=== PATIENT | female | born 1930 | race African-American/Black ===

== ENCOUNTER 2016-07-01 23:30 | Inpatient (IN) | payer OTHER ==
--- NOTE | 2016-07-02 00:35 | PDOC ---
History of Present Illness - General History Source: Family Exam Limitations: Dementia - History of Present Illness Initial Comments: 07/02/16 01:15 The patient is a 86-year-old female brought in by her family, with a significant past medical history of hypertension, advanced dementia, and COPD, and presents to the emergency department with right hand swelling for 1.5 days. The patient does not speak secondary to dementia. As per family, they noticed the swelling in her right hand and noticed that the patient grimaces in pain with touch to the right hand and arm. They deny any recent trauma. As per family , the patient is eating more than normal, and the daughter is actively feeding her. As per family, the patient denies fever, chills, abdominal pain, nausea, vomit, diarrhea. The patient denies chest pain, shortness of breath, headache, or dizziness. Allergies: No known drug allergies Social History: Denies smoking, ETOH, or recreational drug use PCP: Dr. Alvaro Nguyen <Jaci Louis - Last Filed: 07/02/16 01:22> - General History Source: Patient <TrePrabhakar bush - Last Filed: 07/02/16 01:58> - General Chief Complaint: Edema Stated Complaint: RIGHT HAND SWELLING Time Seen by Provider: 07/02/16 00:35 Past History <Jaci Louis - Last Filed: 07/02/16 01:22> - Past Medical History Dementia: Yes HTN: Yes Suicide Attempt (Hx): No - Surgical History Abdominal Surgery: Yes (left inguinal hernia) Cholecystectomy: Yes - Psycho/Social/Smoking Cessation Hx Anxiety: No Suicidal Ideation: No Smoking Status: No Smoking History: Never smoked Have you smoked in the past 12 months: No Number of Cigarettes Smoked Daily: 0 Hx Alcohol Use: No Drug/Substance Use Hx: No Substance Use Type: None <Prabhakar Young - Last Filed: 07/02/16 01:58> - Past Medical History Allergies/Adverse Reactions: Allergies Allergy/AdvReac Type Severity Reaction Status Date / Time No Known Allergies Allergy Verified 04/01/16 20:34 Home Medications: Ambulatory Orders Cholecalciferol (Vitamin D3) [Vitamin D3] 2,000 unit PO DAILY 06/21/14 Dicyclomine HCl 10 mg PO TID 06/21/14 Folic Acid - 1 mg PO DAILY 06/21/14 Lansoprazole [Prevacid -] 30 mg PO DAILY 06/21/14 Levothyroxine [Synthroid -] 50 mcg PO DAILY 06/21/14 Memantine HCl [Namenda -] 10 mg PO BID 06/21/14 Quinapril HCl [Accupril] 10 mg PO DAILY 06/21/14 Oxycodone HCl/Acetaminophen [Percocet 5-325 mg Tablet] 1 - 2 tab PO Q4H PRN 09/12 Review of Systems - Review of Systems Comments:: 07/02/16 01:16 CONSTITUTIONAL: Absent: fever, chills, diaphoresis, generalized weakness, malaise, loss of appetite HEENT: Absent: rhinorrhea, nasal congestion, throat pain, throat swelling, difficulty swallowing, mouth swelling, ear pain, eye pain, visual Changes CARDIOVASCULAR: Absent: chest pain, syncope, palpitations, irregular heart rate, lightheadedness RESPIRATORY: Absent: cough, shortness of breath, dyspnea with exertion, orthopnea, wheezing, stridor, hemoptysis GASTROINTESTINAL: Absent: abdominal pain, abdominal distension, nausea, vomiting, diarrhea, constipation, melena, hematochezia GENITOURINARY: Absent: dysuria, frequency, urgency, hesitancy, hematuria, flank pain, genital pain MUSCULOSKELETAL: Present: (+) right hand swelling Absent: arthralgia SKIN: Absent: rash, itching, pallor HEMATOLOGIC/IMMUNOLOGIC: Absent: easy bleeding, easy bruising, lymphadenopathy, frequent infections ENDOCRINE: Absent: unexplained weight gain, unexplained weight loss, heat intolerance, cold intolerance NEUROLOGIC: Absent: headache, focal weakness or paresthesias, dizziness, unsteady gait, seizure, mental status changes, bladder or bowel incontinence PSYCHIATRIC: Absent: anxiety, depression, suicidal or homicidal ideation, hallucinations. <Jaci Louis - Last Filed: 07/02/16 01:22> *Physical Exam - Physical Exam Comments: 07/02/16 01:16 GENERAL: Well developed, well nourished. Awake and alert. No acute distress. HEENT: Normocephalic, atraumatic. PERRLA, EOMI. No conjunctival pallor. Sclera are non- icteric. Moist mucous membranes. Oropharynx is clear. NECK: Supple. Full ROM. No JVD. Carotid pulses 2+ and symmetric, without bruits. No thyromegaly. No lymphadenopathy. CARDIOVASCULAR: Regular rate and rhythm. No murmurs, rubs, or gallops. Distal pulses are 2+ and symmetric. PULMONARY: No evidence of respiratory distress. Lungs clear to auscultation bilaterally. No wheezing, rales or rhonchi. ABDOMINAL: Soft. Non-tender. Non-distended. No rebound or guarding. No organomegaly. Normoactive bowel sounds. MUSCULOSKELETAL Normal range of motion at all joints. No bony deformities or tenderness. No CVA tenderness. EXTREMITIES: (+) Right arm edema, (+) Erythema from dorsum of right hand to mid forearm, does not extend past right elbow, (+) Tenderness to palpation of the right hand and arm. No cyanosis. No clubbing. No calf tenderness. SKIN: Warm and dry. Normal capillary refill. No rashes. No jaundice. NEUROLOGICAL: Alert, awake, appropriate. Cranial nerves 2-12 intact. No deficits to light touch and temperature in face, upper extremities and lower extremities. No motor deficits in the in face, upper extremities and lower extremities. Normoreflexic in the upper and lower extremities. Normal speech. Toes are down-going bilaterally. Gait is normal without ataxia. PSYCHIATRIC: Cooperative. Good eye contact. Appropriate mood and affect. <Jaci Louis - Last Filed: 07/02/16 01:22> ED Treatment Course - LABORATORY CBC & Chemistry Diagram: 07/02/16 00:50 07/02/16 00:50 <Jaci Louis - Last Filed: 07/02/16 01:22> - LABORATORY CBC & Chemistry Diagram: 07/02/16 00:50 07/02/16 00:50 <Prabhakar Young - Last Filed: 07/02/16 01:58> Medical Decision Making - Medical Decision Making 07/02/16 01:58 Dr. Young: The scribe's documentation has been prepared under my direction and personally reviewed by me in its entirery. I confirm that the note above accurately reflects all work, treatment, procedures, and medical decision making performed by me. <Prabhakar Young - Last Filed: 07/02/16 01:58> *DC/Admit/Observation/Transfer - Attestations Scribe Attestion: 07/02/16 01:17 Documentation prepared by Jaci Louis, acting as medical technologist clinical for Prabhakar Young DO. <Jaci Louis - Last Filed: 07/02/16 01:22> - Discharge Dispostion Admit: Yes <Prabhakar Young - Last Filed: 07/02/16 01:58> Diagnosis at time of Disposition: Cellulitis Qualifiers: Site of cellulitis of extremity: upper extremity Laterality: right - Referrals Referrals: Alvaro Nguyen MD [Primary Care Provider] -
[2016-07-02 01:17] LABS: MCH 27.9 pg (25.7-33.7); MCHC 31.9 g/dl (32.0-36.0); MEAN CELL VOLUME 87.5 fl (80-96); MEAN PLT VOLUME 11.8 fl (7.5-11.1); PLATELET COUNT 121 K/MM3 (134-434); WHITE BLOOD COUNT 7.4 K/mm3 (4.0-10.0)
[2016-07-02 01:43] LABS: INR 1.1 (0.82-1.09); PROTHROMBIN TIME (PATIENT) 12.1 SEC (9.98-11.88)
[2016-07-02 01:45] LABS: ALBUMIN 2.8 g/dl (3.4-5.0); BILIRUBIN,TOTAL 0.7 mg/dL (0.2-1.0); CREATININE 0.9 mg/dL (0.55-1.02); TOT PROT 5.5 g/dl (6.4-8.2)
[2016-07-02] MEDS ORDERED: AMPICILLIN NA/SULBACTAM NA 1.5 GM in SODIUM CHLORIDE 100 ML IVPB ONE (01:54)
[2016-07-02 02:09] VITALS: BMI 22.6
--- NOTE | 2016-07-02 02:15 | PN ---
<Kerrie Rea - Last Filed: 07/02/16 04:21> Teaching Attending Note ATTENDING PHYSICIAN STATEMENT I saw and evaluated the patient. I reviewed the resident's note and discussed the case with the resident. I agree with the resident's findings and plan as documented. SUBJECTIVE: The patient is a 86-year-old female brought in by her family, with a significant past medical history of hypertension, hypothyroidism, advanced dementia, and COPD, and presents to the emergency department with right hand swelling noticed by family at 12 am. As per family the patient has been guarding her right hand for few days and they noted erythema and swelling. The patient does not speak secondary to dementia. They deny any recent trauma. PCP: Dr. Alvaro Nguyen OBJECTIVE: Physical: VS: Last Vital Signs Temp Pulse Resp BP Pulse Ox 98.7 F 78 18 145/89 100 07/02/16 02:07 07/02/16 02:07 07/02/16 02:07 07/02/16 02:07 07/02/16 02:07 GEN: cachectic, unable to follow direction, A&OX0 HEENT: patient unwilling to open mouth, [facility] CARD: 2/6 systolic ejection murmur RESP:CTAB ABD: scaphoid, BWS x4 EXT: +right arm pulses intact erythema up to mid forarm with warmth and edema, +Left upper extremity pulses intact, +Lower extremities negative CCE LABS: CBCD WBC 7.4 K/mm3 (4.0-10.0) D 07/02/16 00:50 RBC 4.36 M/mm3 (3.60-5.2) 07/02/16 00:50 Hgb 12.2 GM/dL (10.7-15.3) 07/02/16 00:50 Hct 38.1 % (32.4-45.2) 07/02/16 00:50 MCV 87.5 fl (80-96) 07/02/16 00:50 MCHC 31.9 g/dl (32.0-36.0) L 07/02/16 00:50 RDW 16.0 % (11.6-15.6) H 07/02/16 00:50 Plt Count 121 K/MM3 (134-434) L 07/02/16 00:50 MPV 11.8 fl (7.5-11.1) H 07/02/16 00:50 CMP Sodium 142 mmol/L (136-145) 07/02/16 00:50 Potassium 3.7 mmol/L (3.5-5.1) 07/02/16 00:50 Chloride 104 mmol/L (98-107) 07/02/16 00:50 Carbon Dioxide 27 mmol/L (21-32) 07/02/16 00:50 Anion Gap 11 (8-16) 07/02/16 00:50 BUN 16 mg/dL (7-18) 07/02/16 00:50 Creatinine 0.9 mg/dL (0.55-1.02) 07/02/16 00:50 Creat Clearance w eGFR 59.37 (>60) 07/02/16 00:50 Calcium 8.0 mg/dL (8.5-10.1) L 07/02/16 00:50 Total Bilirubin 0.7 mg/dL (0.2-1.0) D 07/02/16 00:50 AST 16 U/L (15-37) D 07/02/16 00:50 ALT 18 U/L (12-78) D 07/02/16 00:50 Alkaline Phosphatase 68 U/L (45-117) D 07/02/16 00:50 Total Protein 5.5 g/dl (6.4-8.2) L 07/02/16 00:50 Albumin 2.8 g/dl (3.4-5.0) L D 07/02/16 00:50 ASSESSMENT AND PLAN: 86 with hypertension, hypothyroidism, advanced dementia and COPD who presents with swelling and erythema of the right hand being admitted for cellulitis. 1.) Cellulitis - Unable to tolerate PO intake - Clindamycin 900Q8 - Hand Xray 2.) Dysphagia - Speech and swallow eval 3.) Hypothyroidism - Synthroid IV 4.) HLD - Hold PO meds 5.) COPD - Not in exacerbation monitor 6.) DVT ppx - Heparin 5,000 Q8 Admit to Med-Surg. Documentation prepared by Kerrie Rea, acting as medical scientist for Jonnie Damon D.O. <Jonnie Damon - Last Filed: 07/02/16 06:52> Teaching Attending Note Name of Resident: Bridget Lagos
[2016-07-02 02:54] LABS: URINE APPEARANCE SLCLOUDY; URINE BILIRUBIN NEGATIVE (NEGATIVE); URINE BLOOD NEGATIVE (NEGATIVE); URINE COLOR AMBER; URINE GLUCOSE (UA) NEGATIVE (NEGATIVE); URINE KETONE NEGATIVE (NEGATIVE); URINE LEUK ESTERASE NEGATIVE (NEGATIVE); URINE NITRITE POSITIVE (NEGATIVE); URINE PROTEIN NEGATIVE (NEGATIVE); URINE UROBILINOGEN NEGATIVE E.U./dl (0.2-1.0)
[2016-07-02 03:01] LABS: PLATELET COMMENT2 FEW GIANT PLTS; PLATELET COMMENT3 NO CLUMPING NOTED; PLATELET ESTIMATE SLT DECREASED (NORMAL); POLYCHROMASIA 1+
[2016-07-02 03:02] LABS: URINE BACTERIA MANY /hpf (NONE SEEN); URINE MUCUS MANY; URINE RBC 1 /hpf (0-3); URINE WBC 5 /hpf (3-5)
[2016-07-02] MEDS ORDERED: morphine CARPU-JECT 2 MG/1 ML DISP.SYRIN IVPUSH PRN ×2 (03:23→03:48)
--- NOTE | 2016-07-02 03:48 | HP ---
CHIEF COMPLAINT: Right hand swelling PCP: Dr. Wendy Michelle HISTORY OF PRESENT ILLNESS: The pt is a 86 year old female with a significant PMH of severe dementia, HTN, hypothyroidism, COPD who presented to the hospital for right hand swelling that was noticed by her family around midnight. They state that for the past 3 days she has been guarding her right hand, grimacing when touched or moved. Additionally they state that she has normal appetite but noticed problems with swallowing recently. That is why they started giving her liquid diet, puree, juice mixed with water. They state that she has chronic constipation. The family denies vomiting, diarrhea, changes to her baseline mental status, fever, chills, increased frequency with urination, blood in urine or stool. She is ambulating with assistance and lives with her son. ER course was notable for: (1)Right hand and forearm x ray (2)labs (3)UA PAST MEDICAL HISTORY: severe dementia, HTN, hypothyroidism, COPD PAST SURGICAL HISTORY: hernia surgery 14 years ago, cholecystectomy, accident (fall) in 1986 Social History: Smoking:No Alcohol:No Drugs: No Family History: She lives with her son. 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 Allergies No Known Allergies Allergy (Verified 04/01/16 20:34) HOME MEDICATIONS: Medication Instructions Recorded Cholecalciferol (Vitamin D3) 2,000 unit PO DAILY 06/21/14 [Vitamin D3] Dicyclomine HCl 10 mg PO TID 06/21/14 Folic Acid - 1 mg PO DAILY 06/21/14 Lansoprazole [Prevacid -] 30 mg PO DAILY 06/21/14 Levothyroxine [Synthroid -] 50 mcg PO DAILY 06/21/14 Memantine HCl [Namenda -] 10 mg PO BID 06/21/14 Quinapril HCl [Accupril] 10 mg PO DAILY 06/21/14 Oxycodone HCl/Acetaminophen 1 - 2 tab PO Q4H PRN 04/01/16 [Percocet 5-325 mg Tablet] REVIEW OF SYSTEMS: limited, ROS taken from family CONSTITUTIONAL: Absent: fever, chills HEENT: difficulty swallowing Absent: rhinorrhea, nasal congestion, mouth swelling, ear pain, eye pain, CARDIOVASCULAR: Absent: chest pain, syncope, palpitations, irregular heart rate, lightheadedness , peripheral edema RESPIRATORY: Absent: cough, shortness of breath, dyspnea with exertion, orthopnea, wheezing, stridor, hemoptysis GASTROINTESTINAL: Absent: abdominal pain, abdominal distension, nausea, vomiting, diarrhea, constipation, melena, hematochezia GENITOURINARY: Absent: dysuria, frequency, urgency, hesitancy, hematuria, flank pain, genital pain MUSCULOSKELETAL: right hand swelling and erythema Absent: joint swelling, back pain, neck pain SKIN: Absent: rash, itching, pallor HEMATOLOGIC/IMMUNOLOGIC: Absent: easy bleeding, easy bruising, lymphadenopathy, frequent infections ENDOCRINE: Absent: unexplained weight gain, unexplained weight loss, heat intolerance, cold intolerance NEUROLOGIC: Absent: headache, focal weakness, dizziness, unsteady gait, seizure, mental status changes, bladder or bowel incontinence PSYCHIATRIC: Absent: anxiety PHYSICAL EXAMINATION Vital Signs - 24 hr 07/02/16 02:07 Temperature 98.7 F Pulse Rate 78 Respiratory 18 Rate Blood Pressure 145/89 O2 Sat by Pulse 100 Oximetry (%) GENERAL: Awake, severely demented, not following commands, in no acute distress. HEAD: Normal with no signs of trauma. EYES: Pupils equal, round and reactive to light, extraocular movements not able to assess, sclera anicteric, conjunctiva clear. No lid lag. EARS, NOSE, THROAT: Ears normal, nares patent, oropharynx- pt didn't open her mouth. Moist mucous membranes. NECK: Normal range of motion, supple without lymphadenopathy, JVD, or masses. LUNGS: Breath sounds equal, clear to auscultation bilaterally. No wheezes, and no crackles. No accessory muscle use. HEART: Regular rate and rhythm, normal S1 and S2 without murmur, rub or gallop. ABDOMEN: Soft, nontender, not distended, normoactive bowel sounds, no guarding, no rebound, no masses. No hepatomegaly or splenomegaly. The pt was guarding her abdomen when examined. UPPER EXTREMITIES: 2+ pulses, warm, well-perfused. No cyanosis. No clubbing. Cap refill <2 seconds. No peripheral edema. Rigidity when examined. The pt grimaced when touched or moved her hand. Not able to check ROM. LOWER EXTREMITIES: 2+ pulses, warm, well-perfused. No calf tenderness. No peripheral edema. Rigidity when examined. Not able to examine ROM. NEUROLOGICAL: The pt doesn't speak. Babinski reflex negative B/L. PSYCHIATRIC: Not cooperative. demented. SKIN: Warm, dry, normal turgor, erythema on right hand. Laboratory Results - last 24 hr 07/02/16 02:40 Urine Color [place] Urine Appearance Slcloudy Urine pH 5.0 Ur Specific [place] 1.021 Urine Protein Negative Urine Glucose (UA) Negative Urine Ketones Negative Urine Blood Negative Urine Nitrite Positive Urine Bilirubin Negative Urine Urobilinogen Negative Ur Leukocyte Esterase Negative Urine RBC 1 Urine WBC 5 Urine Bacteria Many Urine Mucus Many ASSESSMENT/PLAN: The pt is a 86 year old female with a significant PMH of severe dementia, HTN, hypothyroidism, COPD who presented to the hospital for right hand swelling that was noticed by her family around midnight. They state that for the past 3 days she has been guarding her right hand, grimacing when touched or moved. Additionally they state that she has normal appetite but noticed problems with swallowing recently. That is why they started giving her liquid diet, puree, juice mixed with water. Cellulitis: -continue Clindamycin 900 mg Q8H -x ray of right hand and forearm to see if there is air in subcutaneous tissue present -Morphine 0.5 Q6H for pain control Dysphagia: -speech and swallow evaluation -Liquid diet Hypothyroidism: -Synthroid 25 mcq IV then change to PO after speech and swallow evaluation HTN: -hold home meds for now DVT prophylaxis: -Heparin 5000 u SQ8 F/E/N: No/No/Liquid diet Disposition: admit to med surgery Problem List - Problem (1) Cellulitis Code(s): L03.90 - CELLULITIS, UNSPECIFIED Qualifiers: Site of cellulitis of extremity: upper extremity Laterality: right (2) Hypothyroidism Code(s): E03.9 - HYPOTHYROIDISM, UNSPECIFIED (3) Dysphagia Code(s): R13.10 - DYSPHAGIA, UNSPECIFIED Visit type - Emergency Visit Emergency Visit: Yes ED Registration Date: 07/02/16 Care time: The patient presented to the Emergency Department on the above date and was hospitalized for further evaluation of their emergent condition. - New Patient This patient is new to me today: Yes Date on this admission: 07/02/16 - Critical Care Critical Care patient: No
[2016-07-02] MEDS ORDERED: LEVOTHYROXINE SODIUM 100 MCG VIAL IVPUSH SCH (07:00)
[2016-07-02] MEDS: CLINDAMYCIN 900 MG PREMIX IVPB 50 ML IVPB SCH ×2 (07:21→11:00)
--- NOTE | 2016-07-02 09:55 | EKG ---
Test Reason : Blood Pressure : / mmHG Vent. Rate : 085 BPM Atrial Rate : 085 BPM P-R Int : 132 ms QRS Dur : 070 ms QT Int : 350 ms P-R-T Axes : 058 031 079 degrees QTc Int : 416 ms SINUS RHYTHM WITH PREMATURE ATRIAL COMPLEXES WITH ABERRANT CONDUCTION OTHERWISE NORMAL ECG WHEN COMPARED WITH ECG OF 01-APR-2016 21:03, ABERRANT CONDUCTION IS NOW PRESENT Confirmed by MARCIAL SALEEM, SUBHA ([id number]) on 07/02/2016 9:55:17 AM Referred By: Overread By: SUBHA CEJA MD
--- NOTE | 2016-07-02 10:51 | CONSULT ---
Admitting History and Physical - Primary Care Physician PCP: Bridget Lagos - Admission History of Present Illness: HISTORY OF PRESENT ILLNESS: The pt is a 86 year old female with a significant PMH of severe dementia, HTN, hypothyroidism, COPD who presented to the hospital for right hand swelling that was noticed by her family around midnight. They state that for the past 3 days she has been guarding her right hand, grimacing when touched or moved. Additionally they state that she has normal appetite but noticed problems with swallowing recently. That is why they started giving her liquid diet, puree, juice mixed with water. They state that she has chronic constipation. The family denies vomiting, diarrhea, changes to her baseline mental status, fever, chills, increased frequency with urination, blood in urine or stool. She is ambulating with assistance and lives with her son. History Source: Medical Record Limitations to Obtaining History: Dementia - Smoking History Smoking history: Never smoked Have you smoked in the past 12 months: No Aproximately how many cigarettes per day: 0 - Alcohol/Substance Use Hx Alcohol Use: No History - Admission Reason For Visit: RIGHT HAND CELLULITIS - Diagnostics X-ray: Report Reviewed - General Mental Status: Confused, Flat Affect Attention: Distractible, Severe Impairment Ability to Follow Directions: Poor Head/Neck Control: Good - Hearing Hearing Aide: No Speech Evaluation - Communication Primary Language: TAJIK Communication: Yes: Non-Communicable Oral Expression Ability: Yes: Non-Verbal, Non-Vocal - Speech Production Able to Make Needs Known: Yes: Severely Impaired Intelligibility: Yes: Severely Impaired - Language/Auditory Comprehension Observation: Able to respond to yes/no queries: No, Comprehends Conversational Speech: No - Language/Verbal Expression Able to Respond to Simple Queries: Yes: Severely Impaired Able to Communicate Wants and Needs: Yes: Severely Impaired Functional Communication Status: Yes: Severely Impaired Attention: Yes: Severe Impairment - Memory/Perception intermission coordinator Memory: Yes: Severely Impaired Short Term Memory: Yes: Severely Impaired - Swallow Evaluation/Bedside Assessment Current Nutritional Intake: NPO Oral Secretions: Yes: WFL Dentition: Yes: Edentulous Facial Symmetry at Rest: Symmetrical Lingual Movement: Symmetric Lingual Speed of Movement: Normal Velopharyngeal Movement: Normal Laryngeal Elevation: WFL Laryngeal Movement: Able to Palpate Chewing: Impaired Oral Prep Time: WFL A-P Transit: WFL Pocketing: None Timing of Swallow: Delayed Coughing/Throat Clear: No Change in Voice: No Recommendations - Speech Evaluation, Impression/Plan Impression: Severe cognitive deficits with poor attention, follows no commands, noncommunicative. Accepted pudding on a teaspoon, liquid from a straw and cup without signs of dysphagia. Pt is edentulous. - Dysphagia Impressions/Plan Dysphagia Impressions: Ongoing Evaluation Recommendations: Other (monitor pulmonary/nutritional status) - Recommendations Diet Consistency: Dysphagia Pureed Medication Administration: Crushed with applesauce Liquids: Thin Liquids Supplement: Ensure (b/n meals.)
[2016-07-02] MEDS ORDERED: oxyCODONE HCL 5 MG TABLET PO PRN (11:56)
--- NOTE | 2016-07-02 12:50 | PN ---
Progress Note (short form) - Note Progress Note: Patient of mine for years with severe dementia, chronic pain, hypertension and multiple abdominal surgeries is admitted from home where her son cares for her with severe right hand pain thought to be due to acute cellulitis. Hand Xray shows some old metacarpal changes but no acute FX. I believe I had recently requested hospice to enroll the patient and also of note is the fact that no body sores are present on her back on admission suggesting good care at home. I will follow the patient.
[2016-07-02] MEDS: HEPARIN NA (PORCINE) 5,000 UNITS/ML 1ML VIAL SQ SCH ×2 (12:57→17:30)
[2016-07-02] MEDS: QUINAPRIL HCL 10 MG TABLET (FP) PO SCH (12:57)
--- NOTE | 2016-07-02 14:32 | PN ---
Progress Note (short form) - Note Progress Note: ID consult dictated imp/reccd 86 year old female admitted from home with swelling, erythema of dorsum right hand xrays no fracture no fever normal WBC no fever cellulitis of the hand ?arthritis/gout switch to ancef Problem List - Problems (1) Cellulitis Code(s): L03.90 - CELLULITIS, UNSPECIFIED Qualifiers: Site of cellulitis of extremity: upper extremity Laterality: right
[2016-07-02 14:36] LABS: URIC ACID 3.9 mg/dL (2.6-7.2)
--- NOTE | 2016-07-02 15:11 | CONS ---
DATE OF CONSULTATION: 07/02/2015 REQUESTED BY: Alvaro Nguyen MD This is an 86-year-old woman with severe dementia, who was admitted from home. She had severe right hand pain with some swelling of the dorsum of her hand. There was no history of any fevers. There was no history of any trauma. She was seen in the emergency room. On the physical exam in the ER, she was noted to have erythema of the dorsum of the right hand to the mid forearm. She had cultures drawn and she was given Unasyn and then switched to clindamycin. I am asked to see her for further evaluation. She is awake, she is not really very verbal, and she is resting quite comfortably today. Her past medical history is notable for a history of dementia, hypertension. She has had a left inguinal hernia repair and a cholecystectomy in the past. She lives with her family. There is no history of any cigarette or substance use. She has no known drug allergies. Her medications at home include vitamin D, dicyclomine, folic acid, Prevacid, Synthroid, Namenda, Accupril, and Percocet. Review of systems is unremarkable. She has had no fevers or chills. No nausea and vomiting. PHYSICAL EXAMINATION: General: She is awake and alert. She is a thin woman in no acute distress. Vital Signs: Temperature is 98.7. Pulse is 78. Blood pressure 145/59. Respiratory rate is 18. Her stated weight is 120. She is saturating 100% on room air. HEENT: She is normocephalic. Her eyes are anicteric. Lungs: Clear to auscultation. Heart: Regular rate and rhythm. Extremities: Her right hand, she has some minimal swelling of the dorsum. There is no swelling of the forearm any more. There is some mild erythema. Extremities are without edema. Her white count is 7.4, hemoglobin 12.2, platelets 121, INR is 1. Chemistries are within normal limits with an albumin of 2.8 and cultures are pending. UA is negative for leukocyte esterase. X-rays of the hand, there is no evidence of any fracture. Chest x-ray is unremarkable. In summary, this is an elderly woman with mild cellulitis of her hand, possible arthritis, some gout contributing to the inflammatory component to this process. I would switch her to Ancef. I do not think she has any clinical risk factors for MRSA. No recent admissions. There is no evidence of any abscess. Would add some probiotics as well. ALIA DUCKWORTH M.D. [id number] MTDD
[2016-07-02] MEDS ORDERED: PNEUMOC 13-VAL CONJ-DIP CRM/PF 0.5 ML DISP.SYRIN IM ONE (15:44)
[2016-07-02] MEDS ORDERED: INFLUENZA VACCINE 45 MCG/0.5 ML (MDV 16-17) IM ONE (15:47)
[2016-07-02] MEDS: CEFAZOLIN 1 GM/D5W 50 ML IVPB SCH (17:29)
[2016-07-02] MEDS: LACTOBACILLUS ACIDOPHILUS 1 EACH TAB (FP) PO SCH (23:50)
[2016-07-02] MEDS: DOCUSATE SODIUM 100 MG CAPSULE (FP) PO SCH (23:52)
[2016-07-02] MEDS: MEMANTINE HCL 10 MG TABLET (FP) PO SCH (23:55)
[2016-07-03] MEDS: CEFAZOLIN 1 GM/D5W 50 ML IVPB SCH ×3 (02:33→18:22)
[2016-07-03] MEDS: HEPARIN NA (PORCINE) 5,000 UNITS/ML 1ML VIAL SQ SCH ×3 (02:33→18:22)
[2016-07-03] MEDS: LEVOTHYROXINE NA 50 MCG TABLET (FP) PO SCH (06:22)
[2016-07-03 07:44] LABS: BASOPHIL 0.3 % (0-2.0); EOSINOPHIL 0.6 % (0-4.5); MCH 29.1 pg (25.7-33.7); MCHC 33.6 g/dl (32.0-36.0); MEAN CELL VOLUME 86.8 fl (80-96); MEAN PLT VOLUME 10.6 fl (7.5-11.1); NEUTROPHILS 74.3 % (42.8-82.8); PLATELET COUNT 141 K/MM3 (134-434); RDW 15.5 % (11.6-15.6); WHITE BLOOD COUNT 4.5 K/mm3 (4.0-10.0)
[2016-07-03 08:43] LABS: FREE T4 1.26 ng/dl (0.76-1.46); THYROID STIMULATING HORMONE 0.69 uIU/ml (0.358-3.74)
--- NOTE | 2016-07-03 09:08 | PN ---
Progress Note (short form) - Note Progress Note: Patient with severe dementia, hypertension and chronic abdominal pain admitted for acute pain and cellulitis of the right hand. Now improved on IV Antibiotics. Set up for hospice at home this week and will go home on hospice. Does not communicate. Cooperates with her son who lives with her. Swallowing eval noted. On Exam: Vital Signs Period Temp Pulse Resp BP Sys/[place]illa Pulse Ox Last 24 Hr 98.3 F-98.5 F 60-73 18-20 98-132/56-78 95-95 Alert Ext: no edema Right hand: Further decrease in warmth, redness and tenderness. Breathing and HR are regular Abnormal Lab Results 07/03/16 06:30 Hgb 10.5 L D Hct 31.2 L D Imp: Acute Cellulitis right hand Severe Dementia Chronic abdominal pain. Plan: Continue IV antibiotic [facility] on discharge
[2016-07-03] MEDS: QUINAPRIL HCL 10 MG TABLET (FP) PO SCH (09:55)
[2016-07-03] MEDS: MEMANTINE HCL 10 MG TABLET (FP) PO SCH ×2 (09:55→22:19)
[2016-07-03] MEDS: LACTOBACILLUS ACIDOPHILUS 1 EACH TAB (FP) PO SCH ×2 (09:55→22:19)
[2016-07-03] MEDS: FOLIC ACID 1 MG TABLET (FP) PO SCH (09:55)
[2016-07-03 10:30] LABS: ERYTHROCYTE SEDIMENTATION RATE 62 mm/hr (0-30)
--- NOTE | 2016-07-03 11:17 | PN ---
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
[2016-07-03] MEDS: DOCUSATE SODIUM 100 MG CAPSULE (FP) PO SCH (22:19)
[2016-07-04] MEDS: HEPARIN NA (PORCINE) 5,000 UNITS/ML 1ML VIAL SQ SCH ×3 (02:25→17:02)
[2016-07-04] MEDS: CEFAZOLIN 1 GM/D5W 50 ML IVPB SCH ×3 (02:25→17:02)
[2016-07-04] MEDS: LEVOTHYROXINE NA 50 MCG TABLET (FP) PO SCH (06:45)
[2016-07-04 08:25] LABS: EOSINOPHIL 1.1 % (0-4.5); MCH 28.9 pg (25.7-33.7); MEAN CELL VOLUME 87.6 fl (80-96); MEAN PLT VOLUME 10.4 fl (7.5-11.1); NEUTROPHILS 60.5 % (42.8-82.8); PLATELET COUNT 185 K/MM3 (134-434); RDW 15.2 % (11.6-15.6); WHITE BLOOD COUNT 3.9 K/mm3 (4.0-10.0)
--- NOTE | 2016-07-04 08:53 | PN ---
Progress Note (short form) - Note Progress Note: Patient appears more alert today but continues confused. Now Urine C/S +; Await sensitivity; she is on Ancef for cellulitis of hand. Hospice at home. Vital Signs Period Temp Pulse Resp BP Sys/Chinchilla Pulse Ox Last 24 Hr 97.9 F-98.4 F 60-76 18-20 100-134/53-75 95-98 On Exam: Alert Heart: Reg Ext: No edema Right hand : much improved right hand swelling and erythema Abnormal Lab Results 07/03/16 07/03/16 07/04/16 06:30 06:30 06:45 WBC 3.9 L RBC 3.51 L Hgb 10.1 L Hct 30.7 L ESR 62 H Free T3 1.1 L Imp: Acute Cellulitis right hand Acute UTI Severe Dementia on Rx Chronic pain on Rx Hypertension on Rx Plan: Needs PT as ordered Continue Antibiotics pending Urine C/S When discharged resume hospice
[2016-07-04] MEDS: QUINAPRIL HCL 10 MG TABLET (FP) PO SCH (10:32)
[2016-07-04] MEDS: MEMANTINE HCL 10 MG TABLET (FP) PO SCH ×2 (10:35→21:56)
[2016-07-04] MEDS: FOLIC ACID 1 MG TABLET (FP) PO SCH (10:35)
[2016-07-04] MEDS: LACTOBACILLUS ACIDOPHILUS 1 EACH TAB (FP) PO SCH ×2 (10:35→21:56)
--- NOTE | 2016-07-04 10:57 | PN ---
Progress Note, WHEELMAN - Note Progress Note: Selected Entries 07/03/16 07/03/16 07/03/16 09:17 14:18 18:29 Breakfast 50% Lunch 75% Supper 50% 07/04/16 09:29 Breakfast 25% Lunch Supper Remind pt to swallow with each bite presented. Encourage PO intake. Provide supplements b/n meals to improve density of nutritional intake.
--- NOTE | 2016-07-04 15:52 | PN ---
Progress Note (short form) - Note Progress Note: doing well more alert Vital Signs Period Temp Pulse Resp BP Sys/Chinchilla Pulse Ox Last 24 Hr 97.8 F-98.9 F 58-76 18-20 99-134/52-66 95-95 cor-rrr lungs clear abd soft,nt ext minimal swelling of right hand CBC, BMP 07/04/16 06:45 07/02/16 00:50 Microbiology 07/02/16 02:40 Urine - Urine Clean Catch Urine Culture - Final Escherichia Coli 07/02/16 00:58 Blood - Peripheral Venous Blood Culture - Preliminary NO GROWTH OBTAINED AFTER 48 HOURS, INCUBATION TO CONTINUE FOR 3 DAYS. 07/02/16 00:58 Blood - Peripheral Venous Blood Culture - Preliminary NO GROWTH OBTAINED AFTER 48 HOURS, INCUBATION TO CONTINUE FOR 3 DAYS. a/p cellulitis -resolved doubt ecoli uti-more likely asymptomatic bacteriuria- UA not consistent with UTI can d/c antibioitcs in am please call back if needed Problem List - Problems (1) Cellulitis Code(s): L03.90 - CELLULITIS, UNSPECIFIED Qualifiers: Site of cellulitis of extremity: upper extremity Laterality: right
[2016-07-04] MEDS: DOCUSATE SODIUM 100 MG CAPSULE (FP) PO SCH (21:56)
[2016-07-05] MEDS: HEPARIN NA (PORCINE) 5,000 UNITS/ML 1ML VIAL SQ SCH ×2 (01:57→09:58)
[2016-07-05] MEDS: CEFAZOLIN 1 GM/D5W 50 ML IVPB SCH ×2 (01:57→09:58)
[2016-07-05] MEDS: LEVOTHYROXINE NA 50 MCG TABLET (FP) PO SCH (06:45)
--- NOTE | 2016-07-05 09:53 | DS ---
Physical Examination Vital Signs: Vital Signs Temperature 98.8 F 07/05/16 06:00 Pulse Rate 56 L 07/05/16 06:00 Respiratory Rate 18 07/05/16 06:00 Blood Pressure 117/60 07/05/16 06:00 O2 Sat by Pulse Oximetry (%) 96 07/04/16 21:00 Constitutional: Yes: Cachectic Cardiovascular: Yes: Regular Rate and Rhythm Respiratory: Yes: Regular Gastrointestinal: Yes: Soft, Distention. No: Tenderness Extremities: Yes: Other (right hand: No cellulitis persists) Edema: No Neurological: Yes: Confusion Labs: CBC, BMP 07/04/16 06:45 Discharge Summary Reason For Visit: Acute RIGHT HAND CELLULITIS Current Active Problems Cellulitis (Acute) Dysphagia (Acute) Hypothyroidism (Acute) Dementia on meds Chronic pain and acute pain Hypertension on meds Procedures: Principal: Blood Cultures and Xrays Other Procedures: IV antibiotics and ID MD consult Hospital Course: Slowly improved; + UTI also but ID MD feels it is not acute infection Condition: Stable - Instructions Diet, Activity, Other Instructions: Puree as tolerated with thin liquids Resume Hospice at home Referrals: Alvaro Nguyen MD [Primary Care Provider] - Disposition: VNS/HOME HEALTH CARE - Home Medications Comprehensive Discharge Medication List: Ambulatory Orders Cholecalciferol (Vitamin D3) [Vitamin D3] 2,000 unit PO DAILY 06/21/14 Folic Acid - 1 mg PO DAILY 06/21/14 Levothyroxine [Synthroid -] 50 mcg PO DAILY 06/21/14 Memantine HCl [Namenda -] 10 mg PO BID 06/21/14 Quinapril HCl [Accupril -] 10 mg PO DAILY 06/21/14 Oxycodone HCl/Acetaminophen [Percocet 5-325 mg Tablet] 1 - 2 tab PO Q4H PRN 09/12 Docusate Sodium [Colace -] 300 mg PO HS capsule 07/05/16
[2016-07-05] MEDS: MEMANTINE HCL 10 MG TABLET (FP) PO SCH (09:58)
[2016-07-05] MEDS: FOLIC ACID 1 MG TABLET (FP) PO SCH (09:58)
[2016-07-05] MEDS: LACTOBACILLUS ACIDOPHILUS 1 EACH TAB (FP) PO SCH (09:58)
[2016-07-05] MEDS: QUINAPRIL HCL 10 MG TABLET (FP) PO SCH (09:58)
[2016-07-05 10:07] VITALS: BP 146/68; PULSE 53; TEMP 98.3
== END 2016-07-05 11:26 | disposition home health service (06) | DRG 603 ==
LOC: JER 23:30 → JERBED 07-02 02:03 → J5S 07-02 04:19
PROVIDERS: ADMIT Internal Medicine; ATTEND Internal Medicine
DX: L03.113 Cellulitis of right upper limb (principal); R64 Cachexia; N39.0 Urinary tract infection, site not specified; F03.90 Unspecified dementia, unspecified severity, without behavioral disturbance, psychotic disturbance, mood disturbance, and anxiety; J44.9 Chronic obstructive pulmonary disease, unspecified; E03.9 Hypothyroidism, unspecified; R13.10 Dysphagia, unspecified; E78.5 Hyperlipidemia, unspecified; K59.00 Constipation, unspecified; Z68.22 Body mass index [BMI] 22.0-22.9, adult
CPT/HCPCS: 36415; 71010-TC; 73090-TC-RT; 73130-TC-RT; 80053; 81003; 81015; 83605; 83880; 84439; 84443; 84481; 84550; 85025; 85610; 85651; 86850; 86900; 86901; 87040; 87086; 87186; 90670; 93005; 93010; 97163-GP; 99283-25; G0008; J1644; Q2037

== ENCOUNTER → 2016-08-19 | Emergency (ER) | payer OTHER ==
[~2016-08-19] MED LIST: CEFTRIAXONE 50 ML ONE; cefTRIAXone 1 GM/50 ML BAG (PRE-DOCKED) IVPB ONE
[2016-08-19 16:00] VITALS: BMI 19.7
--- NOTE | 2016-08-19 16:16 | PDOC ---
History of Present Illness <Faizan Woodall - Last Filed: 08/19/16 17:45> - General History Source: Family Exam Limitations: No Limitations - History of Present Illness Initial Comments: 08/19/16 16:22 The patient is a 86-year-old female, hospice care at home as per son, brought in by EMS, with a significant past medical history of hypertension, advanced dementia, and COPD, and presents to the emergency department with possible overdose. As per son, patient was given half of a half of 10 mg Morphine tablet administered by him in pudding and she spit up more than half of it. Approximately 10 minutes later she became more lethargic in the wheelchair. Patient was responsive but more sluggish.They deny any recent trauma. As per EMS patients BP upon arrival was 60/40 and was brought up to 70/48. Patient was given 2 mg of Narcan by EMS and patient became more responsive. As per family, the patient denies fever, chills, abdominal pain, nausea, vomit, diarrhea. The patient denies chest pain, shortness of breath, headache, or dizziness. Allergies: No known drug allergies Social History: Denies smoking, ETOH, or recreational drug use PCP: Dr. Alvaro Nguyen <Kerrie Rea - Last Filed: 08/19/16 18:43> - General Chief Complaint: Overdose Stated Complaint: SYNCOPE Time Seen by Provider: 08/19/16 15:34 Past History - Past Medical History Dementia: Yes HTN: Yes Suicide Attempt (Hx): No - Surgical History Abdominal Surgery: Yes (left inguinal hernia) Cholecystectomy: Yes - Immunization History Immunization Up to Date: Yes - Psycho/Social/Smoking Cessation Hx Anxiety: No Suicidal Ideation: No Smoking Status: No Smoking History: Never smoked Have you smoked in the past 12 months: No Number of Cigarettes Smoked Daily: 0 Hx Alcohol Use: No Drug/Substance Use Hx: No Substance Use Type: None <Faizan Woodall - Last Filed: 08/19/16 17:45> <Kerrie Rea - Last Filed: 08/19/16 18:43> - Past Medical History Allergies/Adverse Reactions: Allergies Allergy/AdvReac Type Severity Reaction Status Date / Time No Known Allergies Allergy Verified 04/01/16 20:34 Home Medications: Ambulatory Orders Cholecalciferol (Vitamin D3) [Vitamin D3] 2,000 unit PO DAILY 06/21/14 Folic Acid - 1 mg PO DAILY 06/21/14 Levothyroxine [Synthroid -] 50 mcg PO DAILY 06/21/14 Memantine HCl [Namenda -] 10 mg PO BID 06/21/14 Quinapril HCl [Accupril -] 10 mg PO DAILY 06/21/14 Oxycodone HCl/Acetaminophen [Percocet 5-325 mg Tablet] 1 - 2 tab PO Q4H PRN 09/12 Docusate Sodium [Colace -] 300 mg PO HS capsule 07/05/16 Cephalexin [Keflex] 500 mg PO QID #40 capsule 08/19/16 Review of Systems - Review of Systems Able to Perform ROS?: Yes Comments:: 08/19/16 16:23 GENERAL/CONSTITUTIONAL: No fever or chills. No weakness. HEAD, EYES, EARS, NOSE AND THROAT: No change in vision. No ear pain or discharge. No sore throat. CARDIOVASCULAR: No chest pain or shortness of breath. RESPIRATORY: No cough, wheezing, or hemoptysis. GASTROINTESTINAL: No nausea, vomiting, diarrhea or constipation. GENITOURINARY: No dysuria, frequency, or change in urination. MUSCULOSKELETAL: No joint or muscle swelling or pain. No neck or back pain. SKIN: No rash NEUROLOGIC: No headache, vertigo, loss of consciousness, or change in strength/ sensation. ENDOCRINE: No increased thirst. No abnormal weight change. HEMATOLOGIC/LYMPHATIC: No anemia, easy bleeding, or history of blood clots. ALLERGIC/IMMUNOLOGIC: No hives or skin allergy. <Kerrie Rea - Last Filed: 08/19/16 18:43> *Physical Exam - Vital Signs Last Vital Signs Temp Pulse Resp BP Pulse Ox 98.7 F 78 20 150/95 98 08/19/16 15:51 08/19/16 15:51 08/19/16 15:51 08/19/16 15:51 08/19/16 15:51 <Faizan Woodall - Last Filed: 08/19/16 17:45> - Vital Signs Last Vital Signs Temp Pulse Resp BP Pulse Ox 98.7 F 78 20 150/95 98 08/19/16 15:51 08/19/16 15:51 08/19/16 15:51 02/20/17 15:51 08/19/16 15:51 - Physical Exam Comments: 08/19/16 16:26 GENERAL: +Cachectic. Awake, alert, and fully oriented, in no acute distress HEAD: No signs of trauma EYES: PERRLA, EOMI, sclera anicteric, conjunctiva clear ENT: Auricles normal inspection, hearing grossly normal, nares patent, oropharynx clear without exudates. Moist mucosa NECK: Normal ROM, supple, no lymphadenopathy, JVD, or masses LUNGS: Breath sounds equal, clear to auscultation bilaterally. No wheezes, and no crackles HEART: Regular rate and rhythm, normal S1 and S2, no murmurs, rubs or gallops ABDOMEN: Soft, nontender, normoactive bowel sounds. No guarding, no rebound. No masses EXTREMITIES: Normal range of motion, no edema. No clubbing or cyanosis. No cords, erythema, or tenderness NEUROLOGICAL: Cranial nerves II through XII grossly intact. Normal speech. SKIN: Warm, Dry, normal turgor, no rashes or lesions noted. <Kerrie Rea - Last Filed: 08/19/16 18:43> ED Treatment Course - LABORATORY CBC & Chemistry Diagram: 08/19/16 15:51 08/19/16 15:51 <Faizan Woodall - Last Filed: 08/19/16 17:45> - LABORATORY CBC & Chemistry Diagram: 08/19/16 15:51 08/19/16 15:51 <Kerrie Rea - Last Filed: 08/19/16 18:43> Medical Decision Making - Medical Decision Making 08/19/16 16:28 86-year-old female brought in by EMS with son, with a significant past medical history of hypertension, advanced dementia, and COPD, and presents to the emergency department with possible overdose. Will order labs, imaging and will reassess after the results are back. 08/19/16 18:02 Labs reviewed. Hospice care at home as per son. <Kerrie Rea - Last Filed: 08/19/16 18:43> *DC/Admit/Observation/Transfer - Discharge Dispostion Admit: No - Attestations Physician Attestion: 08/19/16 16:16 I, Dr. Faizan Woodall, attest that this document has been prepared under my direction and personally reviewed by me in its entirety. I further attest, that it accurately reflects all work, treatment, procedures and medical decision -making performed by me. <Faizan Woodall - Last Filed: 08/19/16 17:45> - Attestations Scribe Attestion: 08/19/16 16:29 Documentation prepared by TAD Santoro, acting as infertility medical assistant for Faizan Woodall MD/. <Kerrie Rea - Last Filed: 08/19/16 18:43> Diagnosis at time of Disposition: UTI (urinary tract infection) Qualifiers: Urinary tract infection type: site unspecified Hematuria presence: without hematuria Qualified Code(s): N39.0 - Urinary tract infection, site not specified - Discharge Dispostion Disposition: HOME - Prescriptions Prescriptions: Cephalexin [Keflex] 500 mg PO QID #40 capsule - Patient Instructions Printed Discharge Instructions: DI for Urinary Tract Infection (UTI) Additional Instructions: Mrs Rust- Take the keflex four times a day. Return to us if any problems. Best- Dr. Faizan Woodall
[2016-08-19 16:17] LABS: BASOPHIL 0.6 % (0-2.0); EOSINOPHIL 0.4 % (0-4.5); MCH 29.5 pg (25.7-33.7); MCHC 33.3 g/dl (32.0-36.0); MEAN CELL VOLUME 88.8 fl (80-96); MEAN PLT VOLUME 10.8 fl (7.5-11.1); NEUTROPHILS 78.3 % (42.8-82.8); PLATELET COUNT 125 K/MM3 (134-434); RDW 16.7 % (11.6-15.6); WHITE BLOOD COUNT 8.8 K/mm3 (4.0-10.0)
[2016-08-19 16:29] LABS: INR 1.06 (0.82-1.09); PROTHROMBIN TIME (PATIENT) 11.7 SEC (9.98-11.88)
[2016-08-19 16:37] LABS: URINE APPEARANCE CLOUDY; URINE BILIRUBIN NEGATIVE (NEGATIVE); URINE BLOOD NEGATIVE (NEGATIVE); URINE COLOR DKYELLOW; URINE GLUCOSE (UA) NEGATIVE (NEGATIVE); URINE KETONE NEGATIVE (NEGATIVE); URINE NITRITE POSITIVE (NEGATIVE); URINE PROTEIN NEGATIVE (NEGATIVE); URINE UROBILINOGEN NEGATIVE E.U./dl (0.2-1.0)
[2016-08-19 16:38] LABS: ALBUMIN 3.3 g/dl (3.4-5.0); BILIRUBIN,TOTAL 0.3 mg/dL (0.2-1.0); CALCIUM 8.6 mg/dL (8.5-10.1); TOT PROT 5.8 g/dl (6.4-8.2)
[2016-08-19 16:51] LABS: URINE LEUK ESTERASE TRACE (NEGATIVE)
[2016-08-19 17:10] LABS: URINE BACTERIA RARE /hpf (NONE SEEN); URINE HYALINE CAST 6 /lpf; URINE MUCUS FEW; URINE RBC 2 /hpf (0-3); URINE WBC 1 /hpf (3-5)
[2016-08-19 19:24] VITALS: BP 130/70; PULSE 87; TEMP 98.3
--- NOTE | 2016-08-27 13:29 | EKG ---
Test Reason : Blood Pressure : / mmHG Vent. Rate : 070 BPM Atrial Rate : 064 BPM P-R Int : 000 ms QRS Dur : 086 ms QT Int : 426 ms P-R-T Axes : 000 022 070 degrees QTc Int : 460 ms UNDETERMINED RHYTHM LIKELY SINUS WITH FREQUENT ATRIAL PREMATURE COMP\LEXES NONSPECIFIC T WAVE ABNORMALITY ABNORMAL ECG WHEN COMPARED WITH ECG OF 02-JUL-2016 01:16, LIKELY NO SIGNIFICANT CHANGES Confirmed by MARCIAL SALEEM, SUBHA ([id number]) on 08/27/2016 1:29:11 PM Referred By: Confirmed By:SUBHA CEJA MD
== END | disposition home or self-care (01) ==
LOC: JER 15:19
DX: N39.0 Urinary tract infection, site not specified (principal); I10 Essential (primary) hypertension; F03.90 Unspecified dementia, unspecified severity, without behavioral disturbance, psychotic disturbance, mood disturbance, and anxiety; J44.9 Chronic obstructive pulmonary disease, unspecified
CPT/HCPCS: 36415; 80053; 81003; 81015; 83605; 83690; 85025; 85610; 87086; 87186; 93005; 93010; 99285-25

== ENCOUNTER 2017-11-25 23:11 | Inpatient (IN) | payer OTHER ==
[2017-11-26] MEDS ORDERED: ACETAMINOPHEN 1000 MG/100 ML VIAL (NON FORMULARY) IVPB ONE (00:43)
[2017-11-26] MEDS ORDERED: ACETAMINOPHEN INJECTION 100 ML IVPB ONE (01:21)
[2017-11-26 01:35] LABS: BASO % 0.7 % (0-2.0); EOS % 0.1 % (0-4.5); HEMATOCRIT 42.5 % (32.4-45.2); HEMOGLOBIN 13.7 GM/dL (10.7-15.3); MCHC 32.2 g/dl (32.0-36.0); MEAN CELL VOLUME 87.2 fl (80-96); MEAN PLT VOLUME 11.1 fl (7.5-11.1); MONO % 8.2 % (3.8-10.2); PLATELET COUNT 144 K/MM3 (134-434); RBC 4.88 M/mm3 (3.60-5.2); RDW 16.3 % (11.6-15.6); WHITE BLOOD COUNT 9.6 K/mm3 (4.0-10.0)
--- NOTE | 2017-11-26 01:40 | PDOC ---
History of Present Illness - General History Source: Family (son) Exam Limitations: Dementia - History of Present Illness Initial Comments: 11/26/17 01:44 The patient is an 87 year old female with past medical history of hypertension, COPD, and dementia accompanied by her son for right arm and hand swelling that was noticed this morning. The patients son states the patient was in her normal state of health yesterday. Upon arrival to the ED, it was also noted that the patient was very warm to the touch. No further history can be provided due to patients advanced dementia. Allergies: NKDA PCP: Dr. Nguyen <Sharmila Reese - Last Filed: 11/26/17 01:44> <Sanna John - Last Filed: 11/26/17 03:16> - General Chief Complaint: SIRS, Suspected/Possible Stated Complaint: RT ARM PAIN Time Seen by Provider: 11/25/17 23:52 Past History <Sharmila Reese - Last Filed: 11/26/17 01:44> - Past Medical History Dementia: Yes HTN: Yes - Surgical History Abdominal Surgery: Yes (left inguinal hernia) Cholecystectomy: Yes - Immunization History Immunization Up to Date: Yes - Suicide/Smoking/Psychosocial Hx Smoking Status: No Smoking History: Never smoked Have you smoked in the past 12 months: No Number of Cigarettes Smoked Daily: 0 Information on smoking cessation initiated: No Hx Alcohol Use: No Drug/Substance Use Hx: No Substance Use Type: None <Sanna John - Last Filed: 11/26/17 03:16> - Past Medical History Allergies/Adverse Reactions: Allergies Allergy/AdvReac Type Severity Reaction Status Date / Time No Known Allergies Allergy Verified 11/26/17 01:08 Home Medications: Ambulatory Orders Cholecalciferol (Vitamin D3) [Vitamin D3] 2,000 unit PO DAILY 06/21/14 Folic Acid - 1 mg PO DAILY 06/21/14 Levothyroxine [Synthroid -] 50 mcg PO DAILY 06/21/14 Memantine HCl [Namenda -] 10 mg PO BID 06/21/14 Quinapril HCl [Accupril -] 10 mg PO DAILY 06/21/14 Oxycodone HCl/Acetaminophen [Percocet 5-325 mg Tablet] 1 - 2 tab PO Q4H PRN 09/12 Docusate Sodium [Colace -] 300 mg PO HS capsule 07/05/16 Cephalexin [Keflex] 500 mg PO QID #40 capsule 08/19/16 Review of Systems - Review of Systems Able to Perform ROS?: No (Dementia) <Sharmila Reese - Last Filed: 11/26/17 01:44> *Physical Exam - Vital Signs Last Vital Signs Temp Pulse Resp BP Pulse Ox 103.7 F H 102 H 20 152/79 96 11/25/17 23:50 11/25/17 23:50 11/25/17 23:50 11/25/17 23:50 11/25/17 23:50 - Physical Exam Comments: 11/26/17 01:45 GENERAL: Cachectic. No acute distress. HEENT: Edentulous. Normocephalic, atraumatic. PERRLA, EOMI. No conjunctival pallor. Sclera are non-icteric. Dry mucous membranes. Oropharynx is clear. NECK: Supple. Full ROM. No JVD. Carotid pulses 2+ and symmetric, without bruits. No thyromegaly. No lymphadenopathy. CARDIOVASCULAR: Regular rate and rhythm. No murmurs, rubs, or gallops. Distal pulses are 2+ and symmetric. PULMONARY: No evidence of respiratory distress. Lungs clear to auscultation bilaterally. No wheezing, rales or rhonchi. ABDOMINAL: Soft. Non-tender. Non-distended. No rebound or guarding. No organomegaly. Normoactive bowel sounds. MUSCULOSKELETAL Normal range of motion at all joints. No bony deformities or tenderness. No CVA tenderness. EXTREMITIES: Right hand is warm and swollen. No cyanosis. No clubbing. No calf tenderness. SKIN: Warm and dry. Normal capillary refill. No rashes. No jaundice. NEUROLOGICAL: Cranial nerves 2-12 intact. No motor deficits in the in face, upper extremities and lower extremities extremities. PSYCHOLOGICAL: Cooperative. Good eye contact. Appropriate mood and affect. <Sharmila Reese - Last Filed: 11/26/17 01:44> - Vital Signs Last Vital Signs Temp Pulse Resp BP Pulse Ox 103.7 F H 102 H 20 152/79 96 11/25/17 23:50 11/25/17 23:50 11/25/17 23:50 11/25/17 23:50 05/29/18 23:50 <Sanna John - Last Filed: 11/26/17 03:16> ED Treatment Course - LABORATORY CBC & Chemistry Diagram: 11/26/17 01:18 11/26/17 01:18 - ADDITIONAL ORDERS Additional order review: 11/26/17 01:18 RBC 4.88 D MCV 87.2 MCHC 32.2 RDW 16.3 H MPV 11.1 Neutrophils % 85.0 H Lymphocytes % 6.0 L D Monocytes % 8.2 Eosinophils % 0.1 Basophils % 0.7 - Medications Given in the ED: ED Medications Discontinued Medications Generic Name Dose Route Start Last Admin Trade Name Freq PRN Reason Stop Dose Admin Acetaminophen 1,000 mg 11/26/17 00:43 11/26/17 01:33 Ofirmev Injection - IVPB 11/26/17 00:44 1,000 mg ONCE ONE Administration <Sharmila Reese - Last Filed: 11/26/17 01:44> - LABORATORY CBC & Chemistry Diagram: 11/26/17 01:18 11/26/17 01:18 - RADIOLOGY Radiology Studies Ordered: Category Date Time Status CHEST X-RAY PORTABLE* [RAD] Stat Radiology 11/26/17 00:43 Taken - Medications Given in the ED: ED Medications Discontinued Medications Generic Name Dose Route Start Last Admin Trade Name Freq PRN Reason Stop Dose Admin Acetaminophen 1,000 mg 11/26/17 00:43 11/26/17 01:33 Ofirmev Injection - IVPB 11/26/17 00:44 1,000 mg ONCE ONE Administration <Sanna John - Last Filed: 11/26/17 03:16> *DC/Admit/Observation/Transfer - Attestations Scribe Attestion: 11/26/17 02:02 Documentation prepared by Sharmila Reese, acting as medical lab director for Sanna John MD. <Sharmila Reese - Last Filed: 11/26/17 01:44> - Discharge Dispostion Decision to Admit order: Yes <Sanna John - Last Filed: 11/26/17 03:16> Diagnosis at time of Disposition: Severe sepsis Cellulitis Qualifiers: Site of cellulitis: extremity Site of cellulitis of extremity: upper extremity Laterality: right Qualified Code(s): L03.113 - Cellulitis of right upper limb - Discharge Dispostion Condition at time of disposition: Fair - Referrals Referrals: Alvaro Nguyen MD [Primary Care Provider] - - Patient Instructions - Post Discharge Activity
[2017-11-26] MEDS ORDERED: VANCOMYCIN 1,000 MG in DEXTROSE 5%-WATER - 250 ML IVPB ONE (01:44)
[2017-11-26] MEDS ORDERED: PIPERACILLIN/TAZOB 3.375 GM 3.375 GM in DEXTROSE 5%-WATER - 50 ML IVPB ONE (01:45)
[2017-11-26 01:56] LABS: VENOUS PH 7.58 (7.32-7.42)
[2017-11-26 02:08] LABS: INR 1.11 (0.82-1.09); PROTHROMBIN TIME (PATIENT) 12.5 SEC (9.7-13.0)
[2017-11-26 02:10] LABS: ACTIVATED PTT 40.9 SECONDS (26.9-34.4)
[2017-11-26] MEDS ORDERED: VANCOMYCIN 1 GRAM (PRE-DOCKED) 1,000 MG/250 ML BAG IVPB ONE (02:16)
[2017-11-26] MEDS ORDERED: PIPERACILLIN/TAZOB 3.375 GM 3.375 GM/50 ML BAG IVPB ONE (02:17)
[2017-11-26 02:21] LABS: ALBUMIN 2.6 g/dl (3.4-5.0); ALK PHOS 109 U/L (45-117); ANION GAP 6 (8-16); BILIRUBIN,TOTAL 0.5 mg/dL (0.2-1.0); BLOOD UREA NITROGEN 18 mg/dL (7-18); CALCIUM 8.3 mg/dL (8.5-10.1); CHLORIDE 116 mmol/L (98-107); CO2 30 mmol/L (21-32); CREATININE 0.7 mg/dL (0.55-1.02); GLUCOSE,RANDOM 119 mg/dL (74-106); POTASSIUM 3.5 mmol/L (3.5-5.1); SGOT/AST 11 U/L (15-37); SGPT/ALT 13 U/L (12-78); SODIUM 152 mmol/L (136-145); TOT PROT 5.8 g/dl (6.4-8.2)
[2017-11-26] MEDS ORDERED: SODIUM CHLORIDE 1,000 ML IV STA (02:42)
--- NOTE | 2017-11-26 02:43 | HP ---
CHIEF COMPLAINT: Right Hand, Right Arm swelling PCP: Dr. Nguyen HISTORY OF PRESENT ILLNESS: 87 y/o woman from home PMH Dementia, HTN, COPD, Constipation. Who presents to the ED with her son with right hand and arm swelling. Patient's son reports while turning her he noted her right hand and arm to be swollen, red, warmth to touch. He reports that the patient grimaced when the hand/arm were touched. The son also reports that the patient was on Hospice recently for Failure to Thrive , but was taken off because her appetite had improved. He now reports that her appetite is decreased. The son notes the patient's urine is concentrated and malodorous. He denies the patient having fever, chills, cough. The patient has Dementia unable to provide HPI. ER course was notable for: (1) Sepsis- T Max 103.7, P 102 (2) UTI- +Nitrate, +2 blood (3) Recent Travel: None PAST MEDICAL HISTORY: See HPI PAST SURGICAL HISTORY: Cholecystectomy Hernia Repair Childbirth Social History: Smoking: Never Alcohol: None Drugs: None Resides at home with her Son- primary caregiver Family History: Allergies No Known Allergies Allergy (Verified 11/26/17 01:08) HOME MEDICATIONS: Home Medications Medication Instructions Recorded Cholecalciferol (Vitamin D3) 2,000 unit PO DAILY 06/21/14 [Vitamin D3] Folic Acid - 1 mg PO DAILY 06/21/14 Levothyroxine [Synthroid -] 50 mcg PO DAILY 06/21/14 Memantine HCl [Namenda -] 10 mg PO BID 06/21/14 Quinapril HCl [Accupril -] 10 mg PO DAILY 06/21/14 Oxycodone HCl/Acetaminophen 1 - 2 tab PO Q4H PRN 04/01/16 [Percocet 5-325 mg Tablet] Docusate Sodium [Colace -] 300 mg PO HS capsule 07/05/16 Cephalexin [Keflex] 500 mg PO QID #40 capsule 08/19/16 REVIEW OF SYSTEMS Dementia- Unable to Obtain CONSTITUTIONAL: Absent: fever, chills, diaphoresis, generalized weakness, malaise, loss of appetite, weight change HEENT: Absent: rhinorrhea, nasal congestion, throat pain, throat swelling, difficulty swallowing, mouth swelling, ear pain, eye pain, visual changes CARDIOVASCULAR: Absent: chest pain, syncope, palpitations, irregular heart rate, lightheadedness , peripheral edema RESPIRATORY: Absent: cough, shortness of breath, dyspnea with exertion, orthopnea, wheezing, stridor, hemoptysis GASTROINTESTINAL: Absent: abdominal pain, abdominal distension, nausea, vomiting, diarrhea, constipation, melena, hematochezia GENITOURINARY: Absent: dysuria, frequency, urgency, hesitancy, hematuria, flank pain, genital pain MUSCULOSKELETAL: Absent: myalgia, arthralgia, joint swelling, back pain, neck pain SKIN: Absent: rash, itching, pallor HEMATOLOGIC/IMMUNOLOGIC: Absent: easy bleeding, easy bruising, lymphadenopathy, frequent infections ENDOCRINE: Absent: unexplained weight gain, unexplained weight loss, heat intolerance, cold intolerance NEUROLOGIC: Absent: headache, focal weakness or paresthesias, dizziness, unsteady gait, seizure, mental status changes, bladder or bowel incontinence PSYCHIATRIC: Absent: anxiety, depression, suicidal or homicidal ideation, hallucinations. PHYSICAL EXAMINATION Vital Signs - 24 hr 11/25/17 23:50 Temperature 103.7 F H Pulse Rate 102 H Respiratory 20 Rate Blood Pressure 152/79 O2 Sat by Pulse 96 Oximetry (%) GENERAL: Asleep but arosubale- at baseline, in no acute distress. HEAD: Normal with no signs of trauma. EYES: Pupils equal, round and reactive to light, sclera anicteric, conjunctiva clear. No lid lag. EARS, NOSE, THROAT: Ears normal, nares patent, oropharynx clear without exudates. Dry mucous membranes. NECK: Normal range of motion, supple without lymphadenopathy, JVD, or masses. LUNGS: Breath sounds equal, clear to auscultation bilaterally. No wheezes, and no crackles. No accessory muscle use. HEART: Irregular rate and rhythm, normal S1 and S2 without murmur, rub or gallop. ABDOMEN: Soft, nontender, not distended, normoactive bowel sounds, no guarding, no rebound, no masses. No hepatomegaly or splenomegaly. GENITOURINARY: Pineda Cath- brown-orange urine noted in drainage bag MUSCULOSKELETAL: Normal range of motion at all joints. No bony deformities or tenderness. No CVA tenderness. UPPER EXTREMITIES: 2+ pulses, warm, well-perfused. No cyanosis. No clubbing. No peripheral edema. LOWER EXTREMITIES: 2+ pulses, warm, well-perfused. No calf tenderness. No peripheral edema. NEUROLOGICAL: Cranial nerves II-XII intact. Non verbal. Gait not observed. PSYCHIATRIC: Dementia- at baseline. SKIN: Warm, dry, normal turgor, no rashes or lesions noted, normal capillary refill. Laboratory Results - last 24 hr 11/26/17 11/26/17 11/26/17 01:18 01:18 01:20 WBC 9.6 RBC 4.88 D Hgb 13.7 D Hct 42.5 D MCV 87.2 MCH 28.0 MCHC 32.2 RDW 16.3 H Plt Count 144 MPV 11.1 Neutrophils % 85.0 H Lymphocytes % 6.0 L D Monocytes % 8.2 Eosinophils % 0.1 Basophils % 0.7 Nucleated RBC % 0 PT with INR 12.50 INR 1.11 PTT (Actin FS) 40.9 H VBG pH 7.58 H POC VBG pCO2 16.0 L* POC VBG pO2 160.0 H* Mixed VBG HCO3 15.0 L ASSESSMENT/PLAN: This is a 87 y/o woman with PMH Dementia, HTN, COPD. Who presents to the ED with her son, who reports R- arm. hand swelling x am Plan: Admit to M/S for Sepsis secondary to R -Arm Cellulitis. qSOFA Score 1 Sepsis Criteria Met- T Max 103.7, P 102, Neutrophils 85.0 Blood Cultures-pending UA- +nitrate, +2 blood Urine Culture- pending No Leukocytosis, +Neutrophilia Vancomycin, Zosyn given in ED, will continue for broad spectrum coverage Appreciate ID Consult Gentle IVF Pineda cath placement Maintain MAP > 65 Wells Score 2 Duplex B/L UE in am r/o DVT Tylenol prn Continue Levothyroxine, TSH in am Continue Namenda Functional Quadriplegia- complete immobility due to frailty, end stage dementia , requires total care, turn Q2h, Lauro Lift as needed, Heel protectors, Fall Precautions Metabolic Encephalopathy- Likely secondary to Sepsis from R-Cellulitis, fall precautions and neurochecks. DVT ppx- Heparin SQ Code Status: Dispo: Requires Inpatient Care Problem List - Problem (1) Sepsis Code(s): A41.9 - SEPSIS, UNSPECIFIED ORGANISM (2) UTI (urinary tract infection) Code(s): N39.0 - URINARY TRACT INFECTION, SITE NOT SPECIFIED Qualifiers: Urinary tract infection type: site unspecified Hematuria presence: without hematuria Qualified Code(s): N39.0 - Urinary tract infection, site not specified (3) Cellulitis Code(s): L03.90 - CELLULITIS, UNSPECIFIED Qualifiers: Site of cellulitis: extremity Site of cellulitis of extremity: upper extremity Laterality: right Qualified Code(s): L03.113 - Cellulitis of right upper limb (4) Dementia Code(s): F03.90 - UNSPECIFIED DEMENTIA WITHOUT BEHAVIORAL DISTURBANCE (5) Hypothyroidism Code(s): E03.9 - HYPOTHYROIDISM, UNSPECIFIED Visit type - Emergency Visit Emergency Visit: Yes ED Registration Date: 11/25/17 Care time: The patient presented to the Emergency Department on the above date and was hospitalized for further evaluation of their emergent condition. - New Patient This patient is new to me today: Yes Date on this admission: 11/26/17 - Critical Care Critical Care patient: No Hospitalist Screening - Colonoscopy Questionnaire Colonoscopy Questionnaire: Colonoscopy Questionnaire - Patient: 50 - 75 years old and never had a screening colonoscopy: Unknown History of colon or rectal polyps, or CA: Unknown History of IBD, Crohn's disease or UC: Unknown History of abdominal radiation therapy as a child: Unknown - Relative: 1 with colon or rectal CA, or polyps at age 60 or younger: Unknown Colon or rectal CA diagnosed at age 45 or younger: Unknown Multiple relatives with colon or rectal CA: Unknown - Outcome: Screening Result: Negative Screen
[2017-11-26] MEDS ORDERED: VANCOMYCIN 1,000 MG in DEXTROSE 5%-WATER - 250 ML IVPB SCH (03:15)
[2017-11-26 03:34] LABS: URINE APPEARANCE CLEAR; URINE BILIRUBIN NEGATIVE (<2.0 mg/dL); URINE BLOOD 2+ (NEGATIVE); URINE COLOR AMBER; URINE GLUCOSE (UA) NEGATIVE (NEGATIVE); URINE KETONE NEGATIVE (NEGATIVE); URINE LEUK ESTERASE NEGATIVE (NEGATIVE); URINE NITRITE POSITIVE (NEGATIVE); URINE PROTEIN NEGATIVE (NEGATIVE); URINE UROBILINOGEN 4.0 E.U/dl mg/dL (0.2-1.0)
[2017-11-26 03:40] LABS: EPI CELLS RARE /HPF (FEW); URINE BACTERIA RARE /hpf (NONE SEEN); URINE MUCUS RARE
[2017-11-26] MEDS ORDERED: DEXTROSE 5%-0.45% SALINE 1,000 ML IV SCH (07:45)
--- NOTE | 2017-11-26 08:53 | PN ---
Progress Note (short form) - Note Progress Note: Dr. Hoyt to document today. On Rx Cellulitis; await Xray report. Had been on hospice but was D/Dick as she was eating but now endstage dementia and not eating.
[2017-11-26] MEDS: PIPERACILLIN/TAZOB 2.25 GM 2.25 GM in DEXTROSE 5%-WATER - 50 ML IVPB SCH ×2 (09:50→16:00)
--- NOTE | 2017-11-26 10:27 | PN ---
Progress Note, Physician Chief Complaint: Unable to obtain - Current Medication List Current Medications: Active Medications Vancomycin HCl 1,000 mg/ (Dextrose) 250 mls @ 200 mls/hr IVPB Q24H [facility]; Protocol Last Admin: 11/26/17 03:15 Dose: Not Given Piperacillin Sod/Tazobactam (Sod 2.25 gm/ Dextrose) 50 mls @ 100 mls/hr IVPB Q6H-IV [facility]; Protocol Dextrose/Sodium Chloride (D5-1/2ns -) 1,000 mls @ 30 mls/hr IV ASDIR [facility] Last Admin: 11/26/17 09:50 Dose: 30 mls/hr Vancomycin HCl (Vancomycin 1 Gm Premix -) 1 gm in 200 mls @ 200 mls/hr IVPB ONCE ONE Stop: 11/27/17 03:59 Piperacillin Sod/Tazobactam (Sod 2.25 gm/ Dextrose) 50 mls @ 100 mls/hr IVPB Q6H-IV [facility] Stop: 11/27/17 08:59 Last Admin: 11/26/17 09:50 Dose: 100 mls/hr - Objective Vital Signs: Vital Signs Temperature 39.8 C H 11/25/17 23:50 Pulse Rate 73 11/26/17 06:57 Respiratory Rate 18 11/26/17 06:57 Blood Pressure 98/72 11/26/17 06:57 O2 Sat by Pulse Oximetry (%) 98 11/26/17 06:57 Constitutional: Yes: No Distress, Calm, Thin Cardiovascular: Yes: Regular Rate and Rhythm. No: Gallop, Murmur, Rub Respiratory: Yes: Regular, CTA Bilaterally. No: Rales, Rhonchi, Wheezes Gastrointestinal: Yes: Normal Bowel Sounds, Soft. No: Distention, Tenderness Extremities: Yes: Erythema Labs: CBC, BMP 11/26/17 01:18 11/26/17 01:18 INR, PTT INR 1.11 (0.82-1.09) 11/26/17 01:18 Problem List - Problems (1) Severe sepsis Assessment/Plan: -secondary to sepsis -appreciate ID assistance -continue vancomycin and zosyn -continue hydration -monitor for improvement Code(s): A41.9 - SEPSIS, UNSPECIFIED ORGANISM; R65.20 - SEVERE SEPSIS WITHOUT SEPTIC SHOCK (2) Cellulitis Assessment/Plan: -as above -monitor for improvement Code(s): L03.90 - CELLULITIS, UNSPECIFIED Qualifiers: Site of cellulitis: extremity Site of cellulitis of extremity: upper extremity Laterality: right Qualified Code(s): L03.113 - Cellulitis of right upper limb (3) Dementia Assessment/Plan: -end stage -will discuss hospice pending patient's recovery Code(s): F03.90 - UNSPECIFIED DEMENTIA WITHOUT BEHAVIORAL DISTURBANCE (4) HTN (hypertension) Assessment/Plan: -restart quinapril -monitor -does not need tight blood pressure control Code(s): I10 - ESSENTIAL (PRIMARY) HYPERTENSION (5) Severe protein-calorie malnutrition Assessment/Plan: -secondary to dementia -encourage po intake as tolerated Code(s): E43 - UNSPECIFIED SEVERE PROTEIN-CALORIE MALNUTRITION (6) Hypothyroidism Assessment/Plan: -continue levothyroxine Code(s): E03.9 - HYPOTHYROIDISM, UNSPECIFIED (7) Hypernatremia Assessment/Plan: -continue D5 1/2NS -monitor for improvement Code(s): E87.0 - HYPEROSMOLALITY AND HYPERNATREMIA
--- NOTE | 2017-11-26 13:23 | EKG ---
Test Reason : Blood Pressure : / mmHG Vent. Rate : 104 BPM Atrial Rate : 125 BPM P-R Int : 000 ms QRS Dur : 068 ms QT Int : 324 ms P-R-T Axes : 054 006 055 degrees QTc Int : 426 ms POOR DATA QUALITY, INTERPRETATION MAY BE ADVERSELY AFFECTED NORMAL SINUS RHYTHM WITH SINUS ARRHYTHMIA T WAVE ABNORMALITY, CONSIDER ANTEROLATERAL ISCHEMIA ABNORMAL ECG Confirmed by PEYMAN SALEEM, SUZANNE ([id number]) on 11/26/2017 1:23:22 PM Referred By: Confirmed By:SUZANNE MORLEY MD
--- NOTE | 2017-11-26 15:50 | CON.ID ---
Consult Consult Specialty:: infectious diseases Reason for Consultation:: swelling of the left hand - History of Present Illness History of Present Illness: patient unable to give any history which is taken from the charts patient is non verbal and bed bound 87 y/o woman from home H Dementia, HTN, COPD, Constipation. admitted with right hand and arm swelling. Patient's son reports while turning her he noted her right hand and arm to be swollen, red, warmth to touch. He reports that the patient grimaced when the hand/arm were touched. The son also reports that the patient was on Hospice recently for Failure to Thrive, but was taken off because her appetite had improved. He now reports that her appetite is decreased. The son notes the patient's urine is concentrated and malodorous. He denies the patient having fever, chills, cough. - History Source History Provided By: Family Member, Medical Record Limitations to Obtaining History: Clinical Condition - Alcohol/Substance Use Hx Alcohol Use: No - Smoking History Smoking history: Never smoked Have you smoked in the past 12 months: No Aproximately how many cigarettes per day: 0 Home Medications - Allergies Allergies/Adverse Reactions: Allergies Allergy/AdvReac Type Severity Reaction Status Date / Time No Known Allergies Allergy Verified 11/26/17 01:08 - Home Medications Home Medications: Ambulatory Orders Cholecalciferol (Vitamin D3) [Vitamin D3] 2,000 unit PO DAILY 06/21/14 Folic Acid - 1 mg PO DAILY 06/21/14 Levothyroxine [Synthroid -] 50 mcg PO DAILY 06/21/14 Memantine HCl [Namenda -] 10 mg PO BID 06/21/14 Quinapril HCl [Accupril -] 10 mg PO DAILY 06/21/14 Oxycodone HCl/Acetaminophen [Percocet 5-325 mg Tablet] 1 - 2 tab PO Q4H PRN 09/12 Docusate Sodium [Colace -] 300 mg PO HS capsule 07/05/16 Cephalexin [Keflex] 500 mg PO QID #40 capsule 08/19/16 Review of Systems Unable to obtain ROS, reason: unable to obtain Physical Exam Vital Signs: Vital Signs Temperature 98.8 F 11/26/17 12:05 Pulse Rate 78 11/26/17 12:05 Respiratory Rate 18 11/26/17 12:05 Blood Pressure 157/88 11/26/17 12:05 O2 Sat by Pulse Oximetry (%) 99 11/26/17 12:05 Constitutional: Yes: Mild Distress, Thin, Other Eyes: Yes: Conjunctiva Clear Cardiovascular: Yes: Regular Rate and Rhythm Respiratory: Yes: Regular, CTA Bilaterally Gastrointestinal: Yes: Normal Bowel Sounds, Soft Musculoskeletal: Yes: Other Extremities: Yes: Erythema (rt hand), Other (contracted) Edema: RUE: 1+ Integumentary: Yes: Erythema Neurological: Yes: Alert, Other Labs: CBC, BMP 11/26/17 01:18 11/26/17 01:18 Imaging - Results Chest X-ray: Report Reviewed, Image Reviewed X-ray: Report Reviewed, Image Reviewed Ultrasound: Report Reviewed, Image Reviewed Assessment/Plan Problem List - Problems (1) Severe sepsis Code(s): A41.9 - SEPSIS, UNSPECIFIED ORGANISM; R65.20 - SEVERE SEPSIS WITHOUT SEPTIC SHOCK (2) Cellulitis Code(s): L03.90 - CELLULITIS, UNSPECIFIED Qualifiers: Site of cellulitis: extremity Site of cellulitis of extremity: upper extremity Laterality: right Qualified Code(s): L03.113 - Cellulitis of right upper limb (3) Dementia Code(s): F03.90 - UNSPECIFIED DEMENTIA WITHOUT BEHAVIORAL DISTURBANCE (4) HTN (hypertension) Code(s): I10 - ESSENTIAL (PRIMARY) HYPERTENSION (5) Severe protein-calorie malnutrition Code(s): E43 - UNSPECIFIED SEVERE PROTEIN-CALORIE MALNUTRITION (6) Hypothyroidism Code(s): E03.9 - HYPOTHYROIDISM, UNSPECIFIED (7) Hypernatremia Code(s): E87.0 - HYPEROSMOLALITY AND HYPERNATREMIA after looking at the patients condition and imaging studies and the fluid in the shoulder joint which could be inflammatory vs infectious the question is further management ideally the fluid needs to be aspirated but patient condition and also it seems patient was n hospice care her hand has cellulitits and is on abx we will continue monitoring the arm if aggressive treatment plan is done then we should consider aspirating the joint fluid continue marcelino for now
[2017-11-26] MEDS: QUINAPRIL HCL 10 MG TABLET (FP) PO SCH (16:00)
[2017-11-26] MEDS: PIPERACILLIN/TAZOB 3.375 GM 3.375 GM in DEXTROSE 5%-WATER - 50 ML IVPB SCH (21:31)
[2017-11-26] MEDS: MEMANTINE HCL 10 MG TABLET (FP) PO SCH (21:31)
[2017-11-26] MEDS: HEPARIN NA (PORCINE) 5,000 UNITS/ML 1ML VIAL SQ SCH (21:31)
[2017-11-26] MEDS: DOCUSATE SODIUM 100 MG CAPSULE (FP) PO SCH (21:31)
[2017-11-27] MEDS: HEPARIN NA (PORCINE) 5,000 UNITS/ML 1ML VIAL SQ SCH ×3 (02:39→18:51)
[2017-11-27] MEDS: PIPERACILLIN/TAZOB 3.375 GM 3.375 GM in DEXTROSE 5%-WATER - 50 ML IVPB SCH ×3 (02:39→18:53)
[2017-11-27] MEDS ORDERED: VANCOMYCIN 1 GM PREMIX - 1 GM/200 ML BAG IVPB ONE (03:00)
[2017-11-27] MEDS: LEVOTHYROXINE NA 50 MCG TABLET (FP) PO SCH (06:29)
[2017-11-27 07:31] LABS: BASO % 1.3 % (0-2.0); EOS % 0.4 % (0-4.5); HEMATOCRIT 34.1 % (32.4-45.2); HEMOGLOBIN 11.3 GM/dL (10.7-15.3); LYMPH % 15.5 % (8-40); MCH 28.5 pg (25.7-33.7); MEAN CELL VOLUME 86.2 fl (80-96); MEAN PLT VOLUME 10.5 fl (7.5-11.1); MONO % 10.1 % (3.8-10.2); NEUT % 72.7 % (42.8-82.8); PLATELET COUNT 152 K/MM3 (134-434); RBC 3.96 M/mm3 (3.60-5.2); WHITE BLOOD COUNT 6.9 K/mm3 (4.0-10.0)
[2017-11-27 07:57] LABS: ANION GAP 7 (8-16); CALCIUM 7.5 mg/dL (8.5-10.1); CHLORIDE 112 mmol/L (98-107); CO2 27 mmol/L (21-32); GLUCOSE,RANDOM 87 mg/dL (74-106); SODIUM 146 mmol/L (136-145)
[2017-11-27 08:00] LABS: BLOOD UREA NITROGEN 15 mg/dL (7-18); CREATININE 0.6 mg/dL (0.55-1.02); PHOSPHOROUS 2.3 mg/dL (2.5-4.9)
[2017-11-27] MEDS ORDERED: DEXTROSE 5%-0.45% SALINE 1,000 ML IV SCH (08:49)
--- NOTE | 2017-11-27 08:51 | PN ---
Progress Note (short form) - Note Progress Note: Dr. Hoyt to document today. Hand still warm and swollen. ? collection right shoulder ? osteomyelitis
[2017-11-27] MEDS ORDERED: PIPERACILLIN/TAZOB 2.25 GM 2.25 GM in DEXTROSE 5%-WATER - 50 ML IVPB SCH (09:00)
[2017-11-27] MEDS ORDERED: DEXTROSE 5%-0.45% SALINE 990 ML with POTASSIUM CHLORIDE 20 MEQ IVPB SCH (10:53)
--- NOTE | 2017-11-27 11:08 | PN ---
Progress Note, Physician Chief Complaint: Unable to obtain - Current Medication List Current Medications: Active Medications Cholecalciferol (Vitamin D3 -) 2,000 unit PO DAILY [facility] [place] Docusate Sodium (Colace -) 300 mg PO HS [facility] Last Admin: 11/26/17 21:31 Dose: 300 mg Folic Acid (Folic Acid -) 1 mg PO DAILY [facility] [place] Heparin Sodium (Porcine) (Heparin -) 5,000 unit SQ Q8H-IV [facility] [place] Last Admin: 11/27/17 02:39 Dose: 5,000 unit Vancomycin HCl 1,000 mg/ (Dextrose) 250 mls @ 200 mls/hr IVPB Q24H [facility] [place]; Protocol Last Admin: 11/26/17 03:15 Dose: Not Given Piperacillin Sod/Tazobactam (Sod 3.375 gm/ Dextrose) 50 mls @ 100 mls/hr IVPB Q8H-IV [facility] [place]; Protocol Last Admin: 11/27/17 02:39 Dose: 100 mls/hr Potassium Chloride (Potassium Chloride 10 Meq Premix Ivpb -) 10 meq in 100 mls @ 100 mls/hr IVPB Q60M [facility] [place] Stop: 11/27/17 11:59 Potassium Chloride 20 meq/ (Dextrose/Sodium Chloride) 1,000 mls @ 75 mls/hr IVPB ASDIR [facility] [place] Potassium Phosphate 8 mm/ (Dextrose) 252.6667 mls @ 62.5 mls/hr IVPB ONCE ONE Stop: 11/27/17 14:56 Levothyroxine Sodium (Synthroid -) 50 mcg PO ACBK [facility] [place] Last Admin: 11/27/17 06:29 Dose: 50 mcg Memantine (Namenda -) 10 mg PO BID [facility] [place] Last Admin: 11/26/17 21:31 Dose: 10 mg Quinapril HCl (Accupril -) 10 mg PO DAILY [facility] [place] Last Admin: 11/26/17 16:00 Dose: 10 mg - Objective Vital Signs: Vital Signs Temperature 36.6 C 11/27/17 05:51 Pulse Rate 85 11/27/17 05:51 Respiratory Rate 18 11/27/17 05:51 Blood Pressure 141/80 11/27/17 05:51 O2 Sat by Pulse Oximetry (%) 97 11/27/17 00:26 Constitutional: Yes: No Distress, Calm, Thin Cardiovascular: Yes: Regular Rate and Rhythm. No: Gallop, Murmur, Rub Respiratory: Yes: Regular, CTA Bilaterally. No: Rales, Rhonchi, Wheezes Gastrointestinal: Yes: Normal Bowel Sounds, Hepatomegaly. No: Distention, Tenderness Extremities: Yes: Erythema Edema: RUE: 1+ Labs: CBC, BMP 11/27/17 07:10 11/27/17 07:10 INR, PTT INR 1.11 (0.82-1.09) 11/26/17 01:18 Problem List - Problems (1) Severe sepsis Code(s): A41.9 - SEPSIS, UNSPECIFIED ORGANISM; R65.20 - SEVERE SEPSIS WITHOUT SEPTIC SHOCK (2) Cellulitis Code(s): L03.90 - CELLULITIS, UNSPECIFIED Qualifiers: Site of cellulitis: extremity Site of cellulitis of extremity: upper extremity Laterality: right Qualified Code(s): L03.113 - Cellulitis of right upper limb (3) Dementia Code(s): F03.90 - UNSPECIFIED DEMENTIA WITHOUT BEHAVIORAL DISTURBANCE (4) HTN (hypertension) Code(s): I10 - ESSENTIAL (PRIMARY) HYPERTENSION (5) Severe protein-calorie malnutrition Code(s): E43 - UNSPECIFIED SEVERE PROTEIN-CALORIE MALNUTRITION (6) Hypothyroidism Code(s): E03.9 - HYPOTHYROIDISM, UNSPECIFIED (7) Hypernatremia Code(s): E87.0 - HYPEROSMOLALITY AND HYPERNATREMIA Assessment/Plan (1) Severe sepsis Assessment/Plan: -improving -continue IV antibiotics and hydration Code(s): A41.9 - SEPSIS, UNSPECIFIED ORGANISM; R65.20 - SEVERE SEPSIS WITHOUT SEPTIC SHOCK (2) Cellulitis Assessment/Plan: -case d/w Dr Jones -continue vancomycin and zosyn -monitor for improvement Code(s): L03.90 - CELLULITIS, UNSPECIFIED Qualifiers: Site of cellulitis: extremity Site of cellulitis of extremity: upper extremity Laterality: right Qualified Code(s): L03.113 - Cellulitis of right upper limb (3) Dementia Assessment/Plan: -end stage -will discuss hospice pending patient's recovery Code(s): F03.90 - UNSPECIFIED DEMENTIA WITHOUT BEHAVIORAL DISTURBANCE (4) HTN (hypertension) Assessment/Plan: -restart quinapril -monitor -does not need tight blood pressure control Code(s): I10 - ESSENTIAL (PRIMARY) HYPERTENSION (5) Severe protein-calorie malnutrition Assessment/Plan: -secondary to dementia -appreciate speech therapy consult -pureed diet Code(s): E43 - UNSPECIFIED SEVERE PROTEIN-CALORIE MALNUTRITION (6) Hypothyroidism Assessment/Plan: -continue levothyroxine Code(s): E03.9 - HYPOTHYROIDISM, UNSPECIFIED (7) Hypernatremia Assessment/Plan: -continue D5 1/2NS -improved Code(s): E87.0 - HYPEROSMOLALITY AND HYPERNATREMIA (8) HypoK/PO4 -IV replacement -recheck in am
--- NOTE | 2017-11-27 11:35 | CONSULT ---
Admitting History and Physical - Primary Care Physician PCP: Iani Hoyt - Admission History of Present Illness: Per EMR: HISTORY OF PRESENT ILLNESS: 87 y/o woman from home PMH Dementia, HTN, COPD, Constipation. Who presents to the ED with her son with right hand and arm swelling. Patient's son reports while turning her he noted her right hand and arm to be swollen, red, warmth to touch. He reports that the patient grimaced when the hand/arm were touched. The son also reports that the patient was on Hospice recently for Failure to Thrive , but was taken off because her appetite had improved. He now reports that her appetite is decreased. The son notes the patient's urine is concentrated and malodorous. He denies the patient having fever, chills, cough. The patient has Dementia unable to provide HPI. ER course was notable for: (1) Sepsis- T Max 103.7, P 102 (2) UTI- +Nitrate, +2 blood Ms. Rust was last seen by me in June 2016, at which time she was tolerating a pureed diet and thin liquids. History Source: Medical Record Limitations to Obtaining History: Clinical Condition - Smoking History Smoking history: Never smoked Have you smoked in the past 12 months: No Aproximately how many cigarettes per day: 0 - Alcohol/Substance Use Hx Alcohol Use: No History - Admission Reason For Visit: SEVERE SEPSIS CELLULITIS - General Mental Status: Awake and Alert, Confused Attention: Distractible Ability to Follow Directions: Poor Head/Neck Control: Needs Assist - Hearing Hearing: Normal With Patient: No Speech Evaluation - Communication Primary Language: UKRAIN[place] Communication: Yes: Non-Communicable - Language/Auditory Comprehension Observation: Comprehends Conversational Speech: No - Swallow Evaluation/Bedside Assessment Current Nutritional Intake: NPO Oral Secretions: Yes: WFL Dentition: Yes: Edentulous Laryngeal Movement: Able to Palpate Labial Seal: WFL Oral Prep Time: WFL A-P Transit: WFL Timing of Swallow: Delayed Coughing/Throat Clear: No Change in Voice: No Recommendations - Speech Evaluation, Impression/Plan Impression: Delayed, brisk swallow.No overt signs of aspiration, but may be at risk due to swallow delay. - Dysphagia Impressions/Plan Dysphagia Impressions: Ongoing Evaluation *Silent aspiration: cannot be R/O at bedside Dysphagia Treatment Plan: Small Bites, Chin Tuck/Down, Trial Feedings, Safe Rate , 1/2 tsp. at a time, Elevate HOB during feed Recommendations: Modified Barium Swallow (Monitor tolerance. MBS if cough, congestion, fever) - Recommendations Diet Consistency: Dysphagia Pureed Medication Administration: Crushed with applesauce Liquids: [place] Thick Supplement: Magic Cup, Ensure Pudding, Other (ensure compact)
[2017-11-27] MEDS: D5-1/2NS+20 MEQ KCL - 20 MEQ/1,000 ML INFUS.BAG IV SCH (11:51)
[2017-11-27] MEDS ORDERED: DEXTROSE IVPB ONE (12:00)
[2017-11-27] MEDS ORDERED: WATER IVPB ONE (12:00)
[2017-11-27] MEDS ORDERED: POTASSIUM PHOSPHATE IVPB ONE (12:00)
[2017-11-27] MEDS: QUINAPRIL HCL 10 MG TABLET (FP) PO SCH (12:09)
[2017-11-27] MEDS: FOLIC ACID 1 MG TABLET (FP) PO SCH (12:09)
[2017-11-27] MEDS: MEMANTINE HCL 10 MG TABLET (FP) PO SCH ×2 (12:10→23:06)
[2017-11-27] MEDS: CHOLECALCIFEROL (VITAMIN D3) 1,000 UNIT TABLET (FP) PO SCH (12:10)
[2017-11-27] MEDS: KCL 10 MEQ IVPB 10 MEQ/100 ML INFUS.BAG IVPB SCH ×2 (14:10→17:11)
[2017-11-27] MEDS ORDERED: DEXTROSE 5%-WATER - 50 ML IVPB ONE (18:53)
[2017-11-27] MEDS ORDERED: PIPERACILLIN/TAZOBACTAM 3.375 GM VIAL IVPB ONE (18:53)
--- NOTE | 2017-11-27 18:59 | PN ---
Progress Note, Physician History of Present Illness: patient more awake and alert saying few non significant words hand swelling is improving still swollen - Current Medication List Current Medications: Active Medications Cholecalciferol (Vitamin D3 -) 2,000 unit PO DAILY [facility] Last Admin: 11/27/17 12:10 Dose: Not Given Docusate Sodium (Colace -) 300 mg PO HS [facility] Last Admin: 11/26/17 21:31 Dose: 300 mg Folic Acid (Folic Acid -) 1 mg PO DAILY [facility] Last Admin: 11/27/17 12:09 Dose: Not Given Heparin Sodium (Porcine) (Heparin -) 5,000 unit SQ Q8H-IV [facility] Last Admin: 11/27/17 11:10 Dose: 5,000 unit Vancomycin HCl 1,000 mg/ (Dextrose) 250 mls @ 200 mls/hr IVPB Q24H [facility]; Protocol Last Admin: 11/26/17 03:15 Dose: Not Given Piperacillin Sod/Tazobactam (Sod 3.375 gm/ Dextrose) 50 mls @ 100 mls/hr IVPB Q8H-IV [facility]; Protocol Last Admin: 11/27/17 14:10 Dose: 100 mls/hr Potassium Chloride/Dextrose/Sod Cl (D5-1/2ns+20 Meq Kcl -) 20 meq in 1,000 mls @ 75 mls/hr IV ASDIR [facility] Last Admin: 11/27/17 11:51 Dose: 75 mls/hr Levothyroxine Sodium (Synthroid -) 50 mcg PO ACBK [facility] Last Admin: 11/27/17 06:29 Dose: 50 mcg Memantine (Namenda -) 10 mg PO BID [facility] Last Admin: 11/27/17 12:10 Dose: Not Given Quinapril HCl (Accupril -) 10 mg PO DAILY [facility] Last Admin: 11/27/17 12:09 Dose: Not Given - Objective Vital Signs: Vital Signs Temperature 97.9 F 11/27/17 05:51 Pulse Rate 85 11/27/17 05:51 Respiratory Rate 18 11/27/17 09:00 Blood Pressure 141/80 11/27/17 05:51 O2 Sat by Pulse Oximetry (%) 98 11/27/17 09:00 Constitutional: Yes: No Distress, Calm Neck: Yes: Supple Cardiovascular: Yes: Regular Rate and Rhythm Respiratory: Yes: Regular, CTA Bilaterally Gastrointestinal: Yes: Normal Bowel Sounds, Soft Musculoskeletal: Yes: Other Extremities: Yes: Other Integumentary: Yes: Erythema Neurological: Yes: Alert, Other Labs: CBC, BMP 11/27/17 07:10 11/27/17 07:10 INR, PTT INR 1.11 (0.82-1.09) 11/26/17 01:18 Assessment/Plan Problem List - Problems (1) Severe sepsis Code(s): A41.9 - SEPSIS, UNSPECIFIED ORGANISM; R65.20 - SEVERE SEPSIS WITHOUT SEPTIC SHOCK (2) Cellulitis Code(s): L03.90 - CELLULITIS, UNSPECIFIED Qualifiers: Site of cellulitis: extremity Site of cellulitis of extremity: upper extremity Laterality: right Qualified Code(s): L03.113 - Cellulitis of right upper limb (3) Dementia Code(s): F03.90 - UNSPECIFIED DEMENTIA WITHOUT BEHAVIORAL DISTURBANCE (4) HTN (hypertension) Code(s): I10 - ESSENTIAL (PRIMARY) HYPERTENSION (5) Severe protein-calorie malnutrition Code(s): E43 - UNSPECIFIED SEVERE PROTEIN-CALORIE MALNUTRITION (6) Hypothyroidism Code(s): E03.9 - HYPOTHYROIDISM, UNSPECIFIED (7) Hypernatremia Code(s): E87.0 - HYPEROSMOLALITY AND HYPERNATREMIA plan continue abx elevation of the hand will d/w the team further plan rest as per the teams
[2017-11-27] MEDS: DOCUSATE SODIUM 100 MG CAPSULE (FP) PO SCH (23:10)
[2017-11-28] MEDS ORDERED: PIPERACILLIN/TAZOBACTAM 3.375 GM VIAL IVPB ONE ×3 (03:12→17:03)
[2017-11-28] MEDS ORDERED: DEXTROSE 5%-WATER - 50 ML IVPB ONE ×3 (03:12→17:03)
[2017-11-28] MEDS: HEPARIN NA (PORCINE) 5,000 UNITS/ML 1ML VIAL SQ SCH ×3 (03:18→17:22)
[2017-11-28] MEDS: PIPERACILLIN/TAZOB 3.375 GM 3.375 GM in DEXTROSE 5%-WATER - 50 ML IVPB SCH ×3 (03:18→17:06)
[2017-11-28] MEDS: LEVOTHYROXINE NA 50 MCG TABLET (FP) PO SCH (06:24)
[2017-11-28 08:17] LABS: BASO % 0.6 % (0-2.0); EOS % 0.8 % (0-4.5); HEMATOCRIT 33.5 % (32.4-45.2); LYMPH % 15.8 % (8-40); MCH 28.6 pg (25.7-33.7); MCHC 32.8 g/dl (32.0-36.0); MEAN CELL VOLUME 87.2 fl (80-96); MEAN PLT VOLUME 10.7 fl (7.5-11.1); MONO % 9.3 % (3.8-10.2); NEUT % 73.5 % (42.8-82.8); PLATELET COUNT 199 K/MM3 (134-434); RBC 3.84 M/mm3 (3.60-5.2); RDW 15.7 % (11.6-15.6); WHITE BLOOD COUNT 6.6 K/mm3 (4.0-10.0)
[2017-11-28] MEDS ORDERED: PT OWN MED DRAWER 7, Y5N ONE (09:40)
--- NOTE | 2017-11-28 09:41 | PN ---
Progress Note (short form) - Note Progress Note: Dr. Hoyt to document today. Right hand less swollen today; slight scratching noted by me and her son always on her right hand which may have been the origin of her infection.
[2017-11-28] MEDS: CHOLECALCIFEROL (VITAMIN D3) 1,000 UNIT TABLET (FP) PO SCH (09:45)
[2017-11-28] MEDS: FOLIC ACID 1 MG TABLET (FP) PO SCH (09:45)
[2017-11-28] MEDS: MEMANTINE HCL 10 MG TABLET (FP) PO SCH ×2 (09:45→21:11)
[2017-11-28] MEDS: QUINAPRIL HCL 10 MG TABLET (FP) PO SCH (09:46)
[2017-11-28] MEDS: D5-1/2NS+20 MEQ KCL - 20 MEQ/1,000 ML INFUS.BAG IV SCH ×3 (09:47→23:06)
[2017-11-28 09:48] LABS: ANION GAP 9 (8-16); BLOOD UREA NITROGEN 8 mg/dL (7-18); CALCIUM 7.6 mg/dL (8.5-10.1); CHLORIDE 110 mmol/L (98-107); CO2 27 mmol/L (21-32); CREATININE 0.5 mg/dL (0.55-1.02); GLUCOSE,RANDOM 88 mg/dL (74-106); MAGNESIUM 1.9 mg/dL (1.8-2.4); PHOSPHOROUS 2.5 mg/dL (2.5-4.9); POTASSIUM 3.5 mmol/L (3.5-5.1); SODIUM 146 mmol/L (136-145)
--- NOTE | 2017-11-28 12:24 | PN ---
Progress Note, [employer] - Note Progress Note: Selected Entries 11/27/17 11/27/17 11/27/17 00:26 05:51 22:00 Supper 25% Temperature 98.8 F 97.9 F 100.2 F H 11/28/17 11/28/17 02:00 09:02 Supper 25% Temperature 98.7 F 99.5 F Laboratory Tests 11/28/17 07:28 WBC 6.6 Eating more for family than staff. Add sweetener to food. Provide Magic cup/Ensure Compact b/n meals.
--- NOTE | 2017-11-28 12:46 | PN ---
Progress Note, Physician Chief Complaint: Unable to obtain - Current Medication List Current Medications: Active Medications Cholecalciferol (Vitamin D3 -) 2,000 unit PO DAILY [facility] Last Admin: 11/28/17 09:45 Dose: 2,000 unit Docusate Sodium (Colace -) 300 mg PO HS [facility] Last Admin: 11/27/17 23:10 Dose: Not Given Folic Acid (Folic Acid -) 1 mg PO DAILY [facility] Last Admin: 11/28/17 09:45 Dose: 1 mg Heparin Sodium (Porcine) (Heparin -) 5,000 unit SQ Q8H-IV [facility] Last Admin: 11/28/17 09:45 Dose: 5,000 unit Vancomycin HCl 1,000 mg/ (Dextrose) 250 mls @ 200 mls/hr IVPB Q24H [facility]; Protocol Last Admin: 11/26/17 03:15 Dose: Not Given Piperacillin Sod/Tazobactam (Sod 3.375 gm/ Dextrose) 50 mls @ 100 mls/hr IVPB Q8H-IV [facility]; Protocol Last Admin: 11/28/17 09:43 Dose: 100 mls/hr Potassium Chloride/Dextrose/Sod Cl (D5-1/2ns+20 Meq Kcl -) 20 meq in 1,000 mls @ 75 mls/hr IV ASDIR [facility] Last Admin: 11/28/17 09:47 Dose: 75 mls/hr Levothyroxine Sodium (Synthroid -) 50 mcg PO ACBK [facility] Last Admin: 11/28/17 06:24 Dose: 50 mcg Memantine (Namenda -) 10 mg PO BID [facility] Last Admin: 11/28/17 09:45 Dose: 10 mg Quinapril HCl (Accupril -) 10 mg PO DAILY [facility] Last Admin: 11/28/17 09:46 Dose: 10 mg - Objective Vital Signs: Vital Signs Temperature 37.5 C 11/28/17 09:02 Pulse Rate 80 11/28/17 09:02 Respiratory Rate 18 11/28/17 09:02 Blood Pressure 134/70 11/28/17 09:02 O2 Sat by Pulse Oximetry (%) 98 11/27/17 21:00 Constitutional: Yes: No Distress, Calm, Thin Cardiovascular: Yes: Regular Rate and Rhythm. No: Gallop, Murmur, Rub Respiratory: Yes: Regular, CTA Bilaterally. No: Rales, Rhonchi, Wheezes Gastrointestinal: Yes: Normal Bowel Sounds, Soft. No: Distention, Tenderness Extremities: Yes: WNL (erythema resolved) Edema: Yes Edema: RUE: Trace (hand/wrist) Labs: CBC, BMP 11/28/17 07:28 11/28/17 07:28 INR, PTT INR 1.11 (0.82-1.09) 11/26/17 01:18 Problem List - Problems (1) Severe sepsis Code(s): A41.9 - SEPSIS, UNSPECIFIED ORGANISM; R65.20 - SEVERE SEPSIS WITHOUT SEPTIC SHOCK (2) Cellulitis Code(s): L03.90 - CELLULITIS, UNSPECIFIED Qualifiers: Site of cellulitis: extremity Site of cellulitis of extremity: upper extremity Laterality: right Qualified Code(s): L03.113 - Cellulitis of right upper limb (3) Dementia Code(s): F03.90 - UNSPECIFIED DEMENTIA WITHOUT BEHAVIORAL DISTURBANCE (4) HTN (hypertension) Code(s): I10 - ESSENTIAL (PRIMARY) HYPERTENSION (5) Severe protein-calorie malnutrition Code(s): E43 - UNSPECIFIED SEVERE PROTEIN-CALORIE MALNUTRITION (6) Hypothyroidism Code(s): E03.9 - HYPOTHYROIDISM, UNSPECIFIED (7) Hypernatremia Code(s): E87.0 - HYPEROSMOLALITY AND HYPERNATREMIA Assessment/Plan (1) Severe sepsis Assessment/Plan: -resolved -continue IV antibiotics and fluids Code(s): A41.9 - SEPSIS, UNSPECIFIED ORGANISM; R65.20 - SEVERE SEPSIS WITHOUT SEPTIC SHOCK (2) Cellulitis Assessment/Plan: -case d/w Dr Jones -continue vancomycin and zosyn -improving Code(s): L03.90 - CELLULITIS, UNSPECIFIED Qualifiers: Site of cellulitis: extremity Site of cellulitis of extremity: upper extremity Laterality: right Qualified Code(s): L03.113 - Cellulitis of right upper limb (3) Dementia Assessment/Plan: -end stage -will discuss hospice pending patient's recovery Code(s): F03.90 - UNSPECIFIED DEMENTIA WITHOUT BEHAVIORAL DISTURBANCE (4) HTN (hypertension) Assessment/Plan: -improved control with quinapril -does not need tight blood pressure control Code(s): I10 - ESSENTIAL (PRIMARY) HYPERTENSION (5) Severe protein-calorie malnutrition Assessment/Plan: -secondary to dementia -case d/w speech therapy -continue pureed diet -add ensure supplements Code(s): E43 - UNSPECIFIED SEVERE PROTEIN-CALORIE MALNUTRITION (6) Hypothyroidism Assessment/Plan: -continue levothyroxine Code(s): E03.9 - HYPOTHYROIDISM, UNSPECIFIED (7) Hypernatremia Assessment/Plan: -continue D5 1/2NS -stable Code(s): E87.0 - HYPEROSMOLALITY AND HYPERNATREMIA (8) HypoK/PO4 -continue replacement in D5 1/2NS -if elevates, remove from IVF -normal today -phosphorus replaced
--- NOTE | 2017-11-28 14:53 | PN ---
Progress Note, Physician History of Present Illness: hand continues to improve patient looks comfortable - Current Medication List Current Medications: Active Medications Cholecalciferol (Vitamin D3 -) 2,000 unit PO DAILY [facility] Last Admin: 11/28/17 09:45 Dose: 2,000 unit Docusate Sodium (Colace -) 300 mg PO HS [facility] Last Admin: 11/27/17 23:10 Dose: Not Given Folic Acid (Folic Acid -) 1 mg PO DAILY [facility] Last Admin: 11/28/17 09:45 Dose: 1 mg Heparin Sodium (Porcine) (Heparin -) 5,000 unit SQ Q8H-IV [facility] Last Admin: 11/28/17 09:45 Dose: 5,000 unit Vancomycin HCl 1,000 mg/ (Dextrose) 250 mls @ 200 mls/hr IVPB Q24H [facility]; Protocol Last Admin: 11/26/17 03:15 Dose: Not Given Piperacillin Sod/Tazobactam (Sod 3.375 gm/ Dextrose) 50 mls @ 100 mls/hr IVPB Q8H-IV [facility]; Protocol Last Admin: 11/28/17 09:43 Dose: 100 mls/hr Potassium Chloride/Dextrose/Sod Cl (D5-1/2ns+20 Meq Kcl -) 20 meq in 1,000 mls @ 75 mls/hr IV ASDIR [facility] Last Admin: 11/28/17 09:47 Dose: 75 mls/hr Levothyroxine Sodium (Synthroid -) 50 mcg PO ACBK [facility] Last Admin: 11/28/17 06:24 Dose: 50 mcg Memantine (Namenda -) 10 mg PO BID [facility] Last Admin: 11/28/17 09:45 Dose: 10 mg Quinapril HCl (Accupril -) 10 mg PO DAILY [facility] Last Admin: 11/28/17 09:46 Dose: 10 mg - Objective Vital Signs: Vital Signs Temperature 99.1 F 11/28/17 14:45 Pulse Rate 88 11/28/17 14:45 Respiratory Rate 18 11/28/17 14:45 Blood Pressure 126/59 11/28/17 14:45 O2 Sat by Pulse Oximetry (%) 98 11/27/17 21:00 Constitutional: Yes: No Distress, Calm Cardiovascular: Yes: Regular Rate and Rhythm Gastrointestinal: Yes: Normal Bowel Sounds, Soft Extremities: Yes: Other Integumentary: Yes: Erythema (of the hand improving) Neurological: Yes: Alert, Other Labs: CBC, BMP 11/28/17 07:28 11/28/17 07:28 INR, PTT INR 1.11 (0.82-1.09) 11/26/17 01:18 Assessment/Plan Problem List - Problems (1) Severe sepsis Code(s): A41.9 - SEPSIS, UNSPECIFIED ORGANISM; R65.20 - SEVERE SEPSIS WITHOUT SEPTIC SHOCK (2) Cellulitis Code(s): L03.90 - CELLULITIS, UNSPECIFIED Qualifiers: Site of cellulitis: extremity Site of cellulitis of extremity: upper extremity Laterality: right Qualified Code(s): L03.113 - Cellulitis of right upper limb (3) Dementia Code(s): F03.90 - UNSPECIFIED DEMENTIA WITHOUT BEHAVIORAL DISTURBANCE (4) HTN (hypertension) Code(s): I10 - ESSENTIAL (PRIMARY) HYPERTENSION (5) Severe protein-calorie malnutrition Code(s): E43 - UNSPECIFIED SEVERE PROTEIN-CALORIE MALNUTRITION (6) Hypothyroidism Code(s): E03.9 - HYPOTHYROIDISM, UNSPECIFIED (7) Hypernatremia Code(s): E87.0 - HYPEROSMOLALITY AND HYPERNATREMIA plan continue abx will change vanco to clinda elevation of the hand rest as per the teams
[2017-11-28] MEDS: DOCUSATE SODIUM 100 MG CAPSULE (FP) PO SCH (21:11)
[2017-11-29] MEDS ORDERED: PIPERACILLIN/TAZOBACTAM 3.375 GM VIAL IVPB ONE ×3 (02:29→17:23)
[2017-11-29] MEDS ORDERED: DEXTROSE 5%-WATER - 50 ML IVPB ONE ×3 (02:30→17:23)
[2017-11-29] MEDS: PIPERACILLIN/TAZOB 3.375 GM 3.375 GM in DEXTROSE 5%-WATER - 50 ML IVPB SCH ×3 (02:32→17:25)
[2017-11-29] MEDS: HEPARIN NA (PORCINE) 5,000 UNITS/ML 1ML VIAL SQ SCH ×3 (02:33→17:26)
[2017-11-29] MEDS: LEVOTHYROXINE NA 50 MCG TABLET (FP) PO SCH (06:03)
[2017-11-29 08:19] LABS: BASO % 1.2 % (0-2.0); EOS % 1.7 % (0-4.5); HEMATOCRIT 35.2 % (32.4-45.2); HEMOGLOBIN 11.6 GM/dL (10.7-15.3); LYMPH % 19.5 % (8-40); MCH 28.5 pg (25.7-33.7); MEAN CELL VOLUME 86.3 fl (80-96); MEAN PLT VOLUME 9.7 fl (7.5-11.1); NEUT % 68.6 % (42.8-82.8); PLATELET COUNT 226 K/MM3 (134-434); RBC 4.08 M/mm3 (3.60-5.2); RDW 15.5 % (11.6-15.6); WHITE BLOOD COUNT 6.8 K/mm3 (4.0-10.0)
[2017-11-29] MEDS: CHOLECALCIFEROL (VITAMIN D3) 1,000 UNIT TABLET (FP) PO SCH (10:26)
[2017-11-29] MEDS: MEMANTINE HCL 10 MG TABLET (FP) PO SCH ×2 (10:27→21:17)
[2017-11-29] MEDS: FOLIC ACID 1 MG TABLET (FP) PO SCH (10:27)
[2017-11-29] MEDS ORDERED: PT OWN MED DRAWER 7, Y5N ONE (10:35)
[2017-11-29 10:36] LABS: ANION GAP 9 (8-16); BLOOD UREA NITROGEN 5 mg/dL (7-18); CALCIUM 7.9 mg/dL (8.5-10.1); CHLORIDE 109 mmol/L (98-107); CO2 25 mmol/L (21-32); CREATININE 0.6 mg/dL (0.55-1.02); GLUCOSE,RANDOM 102 mg/dL (74-106); MAGNESIUM 1.9 mg/dL (1.8-2.4); PHOSPHOROUS 2.6 mg/dL (2.5-4.9); POTASSIUM 3.6 mmol/L (3.5-5.1); SODIUM 143 mmol/L (136-145)
[2017-11-29] MEDS: QUINAPRIL HCL 10 MG TABLET (FP) PO SCH (10:36)
[2017-11-29] MEDS: CLINDAMYCIN 300 MG PREMIX IVPB 300 MG/50 ML BAG IVPB SCH ×2 (10:42→17:25)
--- NOTE | 2017-11-29 10:58 | PN ---
Progress Note, Physician Chief Complaint: Rt hand swelling is improving - Current Medication List Current Medications: Active Medications Cholecalciferol (Vitamin D3 -) 2,000 unit PO DAILY [facility] Last Admin: 11/29/17 10:26 Dose: 2,000 unit Docusate Sodium (Colace -) 300 mg PO HS [facility] Last Admin: 11/28/17 21:11 Dose: Not Given Folic Acid (Folic Acid -) 1 mg PO DAILY [facility] Last Admin: 11/29/17 10:27 Dose: 1 mg Heparin Sodium (Porcine) (Heparin -) 5,000 unit SQ Q8H-IV [facility] Last Admin: 11/29/17 10:26 Dose: 5,000 unit Vancomycin HCl 1,000 mg/ (Dextrose) 250 mls @ 200 mls/hr IVPB Q24H [facility]; Protocol Last Admin: 11/26/17 03:15 Dose: Not Given Piperacillin Sod/Tazobactam (Sod 3.375 gm/ Dextrose) 50 mls @ 100 mls/hr IVPB Q8H-IV [facility]; Protocol Last Admin: 11/29/17 10:26 Dose: 100 mls/hr Potassium Chloride/Dextrose/Sod Cl (D5-1/2ns+20 Meq Kcl -) 20 meq in 1,000 mls @ 75 mls/hr IV ASDIR [facility] Last Admin: 11/28/17 23:06 Dose: 75 mls/hr Clindamycin Phosphate (Cleocin 300 Mg Premix Ivpb) 300 mg in 50 mls @ 100 mls/ hr IVPB Q8H-IV [facility]; Protocol Last Admin: 11/29/17 10:42 Dose: 100 mls/hr Levothyroxine Sodium (Synthroid -) 50 mcg PO ACBK [facility] Last Admin: 11/29/17 06:03 Dose: 50 mcg Memantine (Namenda -) 10 mg PO BID [facility] Last Admin: 11/29/17 10:27 Dose: 10 mg Quinapril HCl (Accupril -) 10 mg PO DAILY [facility] Last Admin: 11/29/17 10:36 Dose: 10 mg - Objective Vital Signs: Vital Signs Temperature 100.0 F H 11/29/17 05:54 Pulse Rate 85 11/29/17 05:54 Respiratory Rate 18 11/29/17 05:54 Blood Pressure 146/77 11/29/17 05:54 O2 Sat by Pulse Oximetry (%) 95 11/28/17 22:50 Constitutional: Yes: Well Nourished, No Distress HENT: Yes: Atraumatic, Normocephalic. No: Drooling Neck: Yes: Supple, Trachea Midline. No: Decreased ROM, Lymphadenopathy Cardiovascular: Yes: Regular Rate and Rhythm, S1, S2. No: Bruit, JVD Respiratory: Yes: Regular, CTA Bilaterally Gastrointestinal: Yes: Normal Bowel Sounds, Soft Genitourinary: No: Anuria, Bladder Distention, CVA Tenderness - Left Musculoskeletal: No: Back Pain, Joint Stiffness Extremities: Yes: Other (Rt Hand Cellulitis) Labs: CBC, BMP 11/29/17 07:30 11/29/17 09:50 INR, PTT INR 1.11 (0.82-1.09) 11/26/17 01:18 Problem List - Problems (1) Cellulitis Assessment/Plan: Patient is on IV Zosyn and Clindamycin ID on the case all cultures are -ve except urine Code(s): L03.90 - CELLULITIS, UNSPECIFIED Qualifiers: Site of cellulitis: extremity Site of cellulitis of extremity: upper extremity Laterality: right Qualified Code(s): L03.113 - Cellulitis of right upper limb (2) HTN (hypertension) Assessment/Plan: Well controlled cont all home medications Code(s): I10 - ESSENTIAL (PRIMARY) HYPERTENSION (3) Severe protein-calorie malnutrition Assessment/Plan: Nutrition consult Code(s): E43 - UNSPECIFIED SEVERE PROTEIN-CALORIE MALNUTRITION (4) Hypothyroidism Assessment/Plan: On Levothyroxine F/U TSH Code(s): E03.9 - HYPOTHYROIDISM, UNSPECIFIED (5) UTI (urinary tract infection) Assessment/Plan: Photosensitive E colli cont current abx Code(s): N39.0 - URINARY TRACT INFECTION, SITE NOT SPECIFIED (6) Dementia Assessment/Plan: Cont Home meds Code(s): F03.90 - UNSPECIFIED DEMENTIA WITHOUT BEHAVIORAL DISTURBANCE
--- NOTE | 2017-11-29 11:13 | PN ---
Progress Note, Physician History of Present Illness: Pt seen and examined. Events noted. Pt is currently alert, without acute distress. Temp 100F today. - Current Medication List Current Medications: Active Medications Cholecalciferol (Vitamin D3 -) 2,000 unit PO DAILY [facility] Last Admin: 11/29/17 10:26 Dose: 2,000 unit Docusate Sodium (Colace -) 300 mg PO HS [facility] Last Admin: 11/28/17 21:11 Dose: Not Given Folic Acid (Folic Acid -) 1 mg PO DAILY [facility] Last Admin: 11/29/17 10:27 Dose: 1 mg Heparin Sodium (Porcine) (Heparin -) 5,000 unit SQ Q8H-IV [facility] Last Admin: 11/29/17 10:26 Dose: 5,000 unit Piperacillin Sod/Tazobactam (Sod 3.375 gm/ Dextrose) 50 mls @ 100 mls/hr IVPB Q8H-IV [facility]; Protocol Last Admin: 11/29/17 10:26 Dose: 100 mls/hr Potassium Chloride/Dextrose/Sod Cl (D5-1/2ns+20 Meq Kcl -) 20 meq in 1,000 mls @ 75 mls/hr IV ASDIR [facility] Last Admin: 11/28/17 23:06 Dose: 75 mls/hr Clindamycin Phosphate (Cleocin 300 Mg Premix Ivpb) 300 mg in 50 mls @ 100 mls/ hr IVPB Q8H-IV [facility]; Protocol Last Admin: 11/29/17 10:42 Dose: 100 mls/hr Levothyroxine Sodium (Synthroid -) 50 mcg PO ACBK [facility] Last Admin: 11/29/17 06:03 Dose: 50 mcg Memantine (Namenda -) 10 mg PO BID [facility] Last Admin: 11/29/17 10:27 Dose: 10 mg Quinapril HCl (Accupril -) 10 mg PO DAILY [facility] Last Admin: 11/29/17 10:36 Dose: 10 mg - Objective Vital Signs: Vital Signs Temperature 100.0 F H 11/29/17 05:54 Pulse Rate 85 11/29/17 05:54 Respiratory Rate 18 11/29/17 05:54 Blood Pressure 146/77 11/29/17 05:54 O2 Sat by Pulse Oximetry (%) 95 11/28/17 22:50 Constitutional: Yes: No Distress Neck: Yes: Supple Cardiovascular: Yes: Regular Rate and Rhythm Respiratory: Yes: Regular Gastrointestinal: Yes: Normal Bowel Sounds, Soft Genitourinary: Yes: Pineda Present Extremities: Yes: Erythema (Rt hand/wrist area mild warmth/erythema, no fluctuance) Neurological: Yes: Alert (demented) Labs: CBC, BMP 11/29/17 07:30 11/29/17 09:50 INR, PTT INR 1.11 (0.82-1.09) 11/26/17 01:18 Microbiology 11/26/17 01:18 Blood - Peripheral Venous Blood Culture - Preliminary NO GROWTH OBTAINED AFTER 72 HOURS, INCUBATION TO CONTINUE FOR 2 DAYS. 11/26/17 01:18 Blood - Peripheral Venous Blood Culture - Preliminary NO GROWTH OBTAINED AFTER 72 HOURS, INCUBATION TO CONTINUE FOR 2 DAYS. 11/26/17 02:58 Urine - Urine - Catheterized Urine Culture - Final Escherichia Coli - ....Imaging X-ray: Report Reviewed Problem List - Problems (1) Cellulitis Code(s): L03.90 - CELLULITIS, UNSPECIFIED Qualifiers: Site of cellulitis: extremity Site of cellulitis of extremity: upper extremity Laterality: right Qualified Code(s): L03.113 - Cellulitis of right upper limb (2) Dementia Code(s): F03.90 - UNSPECIFIED DEMENTIA WITHOUT BEHAVIORAL DISTURBANCE (3) HTN (hypertension) Code(s): I10 - ESSENTIAL (PRIMARY) HYPERTENSION (4) Sepsis Code(s): A41.9 - SEPSIS, UNSPECIFIED ORGANISM (5) Severe protein-calorie malnutrition Code(s): E43 - UNSPECIFIED SEVERE PROTEIN-CALORIE MALNUTRITION (6) Hypothyroidism Code(s): E03.9 - HYPOTHYROIDISM, UNSPECIFIED (7) UTI (urinary tract infection) Code(s): N39.0 - URINARY TRACT INFECTION, SITE NOT SPECIFIED Qualifiers: Urinary tract infection type: site unspecified Hematuria presence: without hematuria Qualified Code(s): N39.0 - Urinary tract infection, site not specified Assessment/Plan Rt hand/wrist cellulitis E. coli UTI - pt still with low grade fever, but overall downward trend - symptoms appear to be improving - cont Zosyn/Clindamycin - elevate hand - cont. monitor temperatures
[2017-11-29] MEDS: D5-1/2NS+20 MEQ KCL - 20 MEQ/1,000 ML INFUS.BAG IV SCH (13:09)
[2017-11-29] MEDS: DOCUSATE SODIUM 100 MG CAPSULE (FP) PO SCH (21:17)
[2017-11-30] MEDS: HEPARIN NA (PORCINE) 5,000 UNITS/ML 1ML VIAL SQ SCH ×3 (02:44→17:22)
[2017-11-30] MEDS: D5-1/2NS+20 MEQ KCL - 20 MEQ/1,000 ML INFUS.BAG IV SCH ×2 (02:44→20:00)
[2017-11-30] MEDS: CLINDAMYCIN 300 MG PREMIX IVPB 300 MG/50 ML BAG IVPB SCH ×3 (02:53→17:21)
[2017-11-30] MEDS: PIPERACILLIN/TAZOB 3.375 GM 3.375 GM in DEXTROSE 5%-WATER - 50 ML IVPB SCH ×3 (02:53→17:27)
[2017-11-30] MEDS: LEVOTHYROXINE NA 50 MCG TABLET (FP) PO SCH (06:24)
[2017-11-30] MEDS ORDERED: PT OWN MED DRAWER 7, Y5N ONE ×2 (10:16→17:10)
[2017-11-30] MEDS ORDERED: DEXTROSE 5%-WATER - 50 ML IVPB ONE ×2 (10:17→17:10)
[2017-11-30] MEDS ORDERED: PIPERACILLIN/TAZOBACTAM 3.375 GM VIAL IVPB ONE ×2 (10:17→17:10)
[2017-11-30] MEDS: CHOLECALCIFEROL (VITAMIN D3) 1,000 UNIT TABLET (FP) PO SCH (10:34)
[2017-11-30] MEDS: FOLIC ACID 1 MG TABLET (FP) PO SCH (10:34)
[2017-11-30] MEDS: MEMANTINE HCL 10 MG TABLET (FP) PO SCH ×2 (10:34→21:27)
[2017-11-30] MEDS: QUINAPRIL HCL 10 MG TABLET (FP) PO SCH (10:35)
--- NOTE | 2017-11-30 12:23 | PN ---
Progress Note, Physician Chief Complaint: Rt hand swelling is improving, remained afebrile - Current Medication List Current Medications: Active Medications Cholecalciferol (Vitamin D3 -) 2,000 unit PO DAILY [facility] Last Admin: 11/30/17 10:34 Dose: 2,000 unit Docusate Sodium (Colace -) 300 mg PO HS [facility] Last Admin: 11/29/17 21:17 Dose: Not Given Folic Acid (Folic Acid -) 1 mg PO DAILY [facility] Last Admin: 11/30/17 10:34 Dose: 1 mg Heparin Sodium (Porcine) (Heparin -) 5,000 unit SQ Q8H-IV [facility] Last Admin: 11/30/17 10:34 Dose: 5,000 unit Piperacillin Sod/Tazobactam (Sod 3.375 gm/ Dextrose) 50 mls @ 100 mls/hr IVPB Q8H-IV [facility]; Protocol Last Admin: 11/30/17 10:34 Dose: 100 mls/hr Potassium Chloride/Dextrose/Sod Cl (D5-1/2ns+20 Meq Kcl -) 20 meq in 1,000 mls @ 75 mls/hr IV ASDIR [facility] Last Admin: 11/30/17 02:44 Dose: 75 mls/hr Clindamycin Phosphate (Cleocin 300 Mg Premix Ivpb) 300 mg in 50 mls @ 100 mls/ hr IVPB Q8H-IV [facility]; Protocol Last Admin: 11/30/17 11:34 Dose: 100 mls/hr Levothyroxine Sodium (Synthroid -) 50 mcg PO ACBK [facility] Last Admin: 11/30/17 06:24 Dose: 50 mcg Memantine (Namenda -) 10 mg PO BID [facility] Last Admin: 11/30/17 10:34 Dose: 10 mg Quinapril HCl (Accupril -) 10 mg PO DAILY [facility] Last Admin: 11/30/17 10:35 Dose: 10 mg - Objective Vital Signs: Vital Signs Temperature 99.8 F H 11/30/17 05:58 Pulse Rate 90 11/30/17 05:58 Respiratory Rate 20 11/30/17 05:58 Blood Pressure 164/97 11/30/17 05:58 O2 Sat by Pulse Oximetry (%) 96 11/29/17 22:00 Constitutional: Yes: Well Nourished, No Distress HENT: Yes: Atraumatic, Normocephalic. No: Drooling Neck: Yes: Supple, Trachea Midline. No: Decreased ROM, Lymphadenopathy Cardiovascular: Yes: Regular Rate and Rhythm, S1, S2. No: Bruit, JVD Respiratory: Yes: Regular, CTA Bilaterally Gastrointestinal: Yes: Normal Bowel Sounds, Soft Genitourinary: No: Anuria, Bladder Distention, CVA Tenderness - Left Musculoskeletal: No: Back Pain, Joint Stiffness Extremities: Yes: Other (Rt Hand Cellulitis) Labs: CBC, BMP 11/29/17 07:30 11/29/17 09:50 INR, PTT INR 1.11 (0.82-1.09) 11/26/17 01:18 Problem List - Problems (1) Cellulitis Assessment/Plan: Patient is on IV Zosyn and Clindamycin ID on the case all cultures are -ve except urine Code(s): L03.90 - CELLULITIS, UNSPECIFIED Qualifiers: Site of cellulitis: extremity Site of cellulitis of extremity: upper extremity Laterality: right Qualified Code(s): L03.113 - Cellulitis of right upper limb (2) HTN (hypertension) Assessment/Plan: Well controlled cont all home medications Code(s): I10 - ESSENTIAL (PRIMARY) HYPERTENSION (3) Severe protein-calorie malnutrition Assessment/Plan: Nutrition consult Code(s): E43 - UNSPECIFIED SEVERE PROTEIN-CALORIE MALNUTRITION (4) Hypothyroidism Assessment/Plan: On Levothyroxine F/U TSH Code(s): E03.9 - HYPOTHYROIDISM, UNSPECIFIED (5) UTI (urinary tract infection) Assessment/Plan: Photosensitive E colli cont current abx Code(s): N39.0 - URINARY TRACT INFECTION, SITE NOT SPECIFIED (6) Dementia Assessment/Plan: Cont Home meds Code(s): F03.90 - UNSPECIFIED DEMENTIA WITHOUT BEHAVIORAL DISTURBANCE
--- NOTE | 2017-11-30 14:18 | PN ---
Progress Note, Physician History of Present Illness: Pt alert, without distress, nonverbal. No new events. Tmax 99.8F - Current Medication List Current Medications: Active Medications Cholecalciferol (Vitamin D3 -) 2,000 unit PO DAILY [facility] Last Admin: 11/30/17 10:34 Dose: 2,000 unit Docusate Sodium (Colace -) 300 mg PO HS [facility] Last Admin: 11/29/17 21:17 Dose: Not Given Folic Acid (Folic Acid -) 1 mg PO DAILY [facility] Last Admin: 11/30/17 10:34 Dose: 1 mg Heparin Sodium (Porcine) (Heparin -) 5,000 unit SQ Q8H-IV [facility] Last Admin: 11/30/17 10:34 Dose: 5,000 unit Piperacillin Sod/Tazobactam (Sod 3.375 gm/ Dextrose) 50 mls @ 100 mls/hr IVPB Q8H-IV [facility]; Protocol Last Admin: 11/30/17 10:34 Dose: 100 mls/hr Potassium Chloride/Dextrose/Sod Cl (D5-1/2ns+20 Meq Kcl -) 20 meq in 1,000 mls @ 75 mls/hr IV ASDIR [facility] Last Admin: 11/30/17 02:44 Dose: 75 mls/hr Clindamycin Phosphate (Cleocin 300 Mg Premix Ivpb) 300 mg in 50 mls @ 100 mls/ hr IVPB Q8H-IV [facility]; Protocol Last Admin: 11/30/17 11:34 Dose: 100 mls/hr Levothyroxine Sodium (Synthroid -) 50 mcg PO ACBK [facility] Last Admin: 11/30/17 06:24 Dose: 50 mcg Memantine (Namenda -) 10 mg PO BID [facility] Last Admin: 11/30/17 10:34 Dose: 10 mg Quinapril HCl (Accupril -) 10 mg PO DAILY [facility] Last Admin: 11/30/17 10:35 Dose: 10 mg - Objective Vital Signs: Vital Signs Temperature 99.8 F H 11/30/17 05:58 Pulse Rate 90 11/30/17 05:58 Respiratory Rate 20 11/30/17 05:58 Blood Pressure 164/97 11/30/17 05:58 O2 Sat by Pulse Oximetry (%) 96 11/29/17 22:00 Constitutional: Yes: No Distress, Calm Cardiovascular: Yes: Regular Rate and Rhythm Respiratory: Yes: Regular Gastrointestinal: Yes: Normal Bowel Sounds, Soft Extremities: Yes: Erythema (Rt hand/mild erythema/warmth/edema - skin intact) Edema: Yes Edema: RUE: 1+ Neurological: Yes: Alert Labs: CBC, BMP 11/29/17 07:30 11/29/17 09:50 INR, PTT INR 1.11 (0.82-1.09) 11/26/17 01:18 Problem List - Problems (1) Cellulitis Code(s): L03.90 - CELLULITIS, UNSPECIFIED Qualifiers: Site of cellulitis: extremity Site of cellulitis of extremity: upper extremity Laterality: right Qualified Code(s): L03.113 - Cellulitis of right upper limb (2) Dementia Code(s): F03.90 - UNSPECIFIED DEMENTIA WITHOUT BEHAVIORAL DISTURBANCE (3) HTN (hypertension) Code(s): I10 - ESSENTIAL (PRIMARY) HYPERTENSION (4) Sepsis Code(s): A41.9 - SEPSIS, UNSPECIFIED ORGANISM (5) Severe protein-calorie malnutrition Code(s): E43 - UNSPECIFIED SEVERE PROTEIN-CALORIE MALNUTRITION (6) Hypothyroidism Code(s): E03.9 - HYPOTHYROIDISM, UNSPECIFIED (7) UTI (urinary tract infection) Code(s): N39.0 - URINARY TRACT INFECTION, SITE NOT SPECIFIED Qualifiers: Urinary tract infection type: site unspecified Hematuria presence: without hematuria Qualified Code(s): N39.0 - Urinary tract infection, site not specified Assessment/Plan Rt hand/wrist cellulitis E. coli UTI - continue antibiotics - appears to be improving - elevate hand - cont. monitor temperatures
[2017-11-30] MEDS ORDERED: IBUPROFEN 200 MG TABLET PO PRN (15:49)
[2017-11-30] MEDS: DOCUSATE SODIUM 100 MG CAPSULE (FP) PO SCH (21:27)
[2017-12-01] MEDS ORDERED: DEXTROSE 5%-WATER - 50 ML IVPB ONE ×3 (00:43→18:10)
[2017-12-01] MEDS ORDERED: PIPERACILLIN/TAZOBACTAM 3.375 GM VIAL IVPB ONE ×3 (00:43→18:10)
[2017-12-01] MEDS: PIPERACILLIN/TAZOB 3.375 GM 3.375 GM in DEXTROSE 5%-WATER - 50 ML IVPB SCH ×3 (01:11→18:16)
[2017-12-01] MEDS: CLINDAMYCIN 300 MG PREMIX IVPB 300 MG/50 ML BAG IVPB SCH ×3 (02:43→18:41)
[2017-12-01] MEDS: HEPARIN NA (PORCINE) 5,000 UNITS/ML 1ML VIAL SQ SCH ×3 (02:50→18:16)
[2017-12-01 03:26] VITALS: BMI 17.5
[2017-12-01] MEDS: LEVOTHYROXINE NA 50 MCG TABLET (FP) PO SCH (06:08)
[2017-12-01 07:08] LABS: BASO % 1.4 % (0-2.0); HEMOGLOBIN 10.4 GM/dL (10.7-15.3); LYMPH % 20.4 % (8-40); MCH 28.8 pg (25.7-33.7); MCHC 33.7 g/dl (32.0-36.0); MEAN CELL VOLUME 85.7 fl (80-96); MEAN PLT VOLUME 8.9 fl (7.5-11.1); MONO % 7.6 % (3.8-10.2); NEUT % 68.6 % (42.8-82.8); PLATELET COUNT 351 K/MM3 (134-434); RBC 3.62 M/mm3 (3.60-5.2); RDW 15.5 % (11.6-15.6); WHITE BLOOD COUNT 7.2 K/mm3 (4.0-10.0)
[2017-12-01 07:28] LABS: ANION GAP 9 (8-16); BLOOD UREA NITROGEN 7 mg/dL (7-18); CALCIUM 8.1 mg/dL (8.5-10.1); CHLORIDE 108 mmol/L (98-107); CO2 26 mmol/L (21-32); CREATININE 0.5 mg/dL (0.55-1.02); GLUCOSE,RANDOM 86 mg/dL (74-106); POTASSIUM 4.3 mmol/L (3.5-5.1); SODIUM 143 mmol/L (136-145)
[2017-12-01 09:32] LABS: URIC ACID 1.5 mg/dL (2.6-7.2)
--- NOTE | 2017-12-01 09:54 | PN ---
Progress Note (short form) - Note Progress Note: Patient improved with much improved swelling right hand and more expressive. Words are mostly mumbling. No nonverbal signs of pain. Awaiting decision to reinstate home hospice. On Exam: Vital Signs Temp 98.1 F 12/01/17 05:27 Pulse 80 12/01/17 05:27 Resp 20 12/01/17 05:27 BP 120/74 12/01/17 05:27 Pulse Ox 96 11/30/17 20:55 Intake & Output 11/30/17 11/30/17 12/01/17 11:59 23:59 11:59 Intake Total 900 937 925 Output Total 1100 2300 900 Balance -200 -1363 25 Weight 93 lb Intake: IV 850 825 D5-1/2NS+20 MEQ KCL - 20 850 825 meq In 1,000 ml @ 75 mls/ hr IV [facility]IR [facility] Rx#: [id number] IVPB 50 100 Oral 700 Oral Supplement 237 Output: Urine 1100 2300 900 [place] 1100 2300 900 Other: Voiding Method Indwelling Catheter Indwelling Catheter Bowel Movement No No # Bowel Movements 2 Height 5 ft 1 in Body Mass Index (BMI) 17.5 Alert Chest: Decreased breath sounds Cor : Reg Abd Nontender Ext: No edema Marked improvement in erythema and swelling dorsum of right hand. Abnormal Lab Results 12/01/17 12/01/17 06:45 06:45 Hgb 10.4 L D Hct 31.0 L Chloride 108 H Creatinine 0.5 L Uric Acid 1.5 L D Calcium 8.1 L C-Reactive Protein 3.3 H IMP: Acute cellulitis right hand resolved Severe dementia Chronic Anemia Hypothyroidism Risk Aspiration Weight loss Plan: Await decision of ID re: ? D/C antibiotics Home onHospice F/u lab
[2017-12-01 10:08] LABS: ERYTHROCYTE SEDIMENTATION RATE 80 mm/hr (0-30)
[2017-12-01] MEDS ORDERED: PT OWN MED DRAWER 7, Y5N ONE (10:19)
[2017-12-01] MEDS: CHOLECALCIFEROL (VITAMIN D3) 1,000 UNIT TABLET (FP) PO SCH (10:33)
[2017-12-01] MEDS: FOLIC ACID 1 MG TABLET (FP) PO SCH (10:33)
[2017-12-01] MEDS: QUINAPRIL HCL 10 MG TABLET (FP) PO SCH (10:34)
[2017-12-01] MEDS: MEMANTINE HCL 10 MG TABLET (FP) PO SCH ×2 (10:34→21:15)
[2017-12-01] MEDS: D5-1/2NS+20 MEQ KCL - 20 MEQ/1,000 ML INFUS.BAG IV SCH (11:09)
--- NOTE | 2017-12-01 12:21 | PN ---
Progress Note, OILER HELPER - Note Progress Note: Selected Entries 11/30/17 11/30/17 11/30/17 05:58 10:00 14:00 Breakfast 75% Lunch 75% Supper Temperature 99.8 F H 97.7 F 98.8 F 11/30/17 11/30/17 12/01/17 18:00 23:00 05:27 Breakfast Lunch Supper 50% Temperature 99.6 F 98.1 F 12/01/17 10:14 Breakfast 75% Lunch Supper Temperature Laboratory Tests 12/01/17 06:45 WBC 7.2 Add sweetener to food. Provide Magic cup/Ensure Compact b/n meals. Improved PO intake with good tolerance.
--- NOTE | 2017-12-01 12:43 | PN ---
Progress Note, Physician History of Present Illness: much better swelling much better - Current Medication List Current Medications: Active Medications Cholecalciferol (Vitamin D3 -) 2,000 unit PO DAILY [facility] Last Admin: 12/01/17 10:33 Dose: 2,000 unit Docusate Sodium (Colace -) 300 mg PO HS [facility] Last Admin: 11/30/17 21:27 Dose: Not Given Folic Acid (Folic Acid -) 1 mg PO DAILY [facility] Last Admin: 12/01/17 10:33 Dose: 1 mg Heparin Sodium (Porcine) (Heparin -) 5,000 unit SQ Q8H-IV [facility] Last Admin: 12/01/17 10:33 Dose: 5,000 unit Piperacillin Sod/Tazobactam (Sod 3.375 gm/ Dextrose) 50 mls @ 100 mls/hr IVPB Q8H-IV [facility]; Protocol Last Admin: 12/01/17 11:05 Dose: 100 mls/hr Potassium Chloride/Dextrose/Sod Cl (D5-1/2ns+20 Meq Kcl -) 20 meq in 1,000 mls @ 75 mls/hr IV ASDIR [facility] Last Admin: 12/01/17 11:09 Dose: 75 mls/hr Clindamycin Phosphate (Cleocin 300 Mg Premix Ivpb) 300 mg in 50 mls @ 100 mls/ hr IVPB Q8H-IV [facility]; Protocol Last Admin: 12/01/17 10:32 Dose: 100 mls/hr Ibuprofen (Advil -) 200 mg PO Q6H PRN PRN Reason: PAIN LEVEL 4 - 6 Levothyroxine Sodium (Synthroid -) 50 mcg PO ACBK [facility] Last Admin: 12/01/17 06:08 Dose: 50 mcg Memantine (Namenda -) 10 mg PO BID [facility] Last Admin: 12/01/17 10:34 Dose: 10 mg Quinapril HCl (Accupril -) 10 mg PO DAILY [facility] Last Admin: 12/01/17 10:34 Dose: 10 mg - Objective Vital Signs: Vital Signs Temperature 98.1 F 12/01/17 05:27 Pulse Rate 80 12/01/17 05:27 Respiratory Rate 20 12/01/17 05:27 Blood Pressure 120/74 12/01/17 05:27 O2 Sat by Pulse Oximetry (%) 96 11/30/17 20:55 Constitutional: Yes: No Distress, Calm Cardiovascular: Yes: Regular Rate and Rhythm Respiratory: Yes: Regular, CTA Bilaterally Gastrointestinal: Yes: Normal Bowel Sounds, Soft Musculoskeletal: Yes: WNL Extremities: Yes: Other Neurological: Yes: Alert, Other Psychiatric: Yes: Alert Labs: CBC, BMP 12/01/17 06:45 12/01/17 06:45 INR, PTT INR 1.11 (0.82-1.09) 11/26/17 01:18 Assessment/Plan Problem List - Problems (1) Severe sepsis Code(s): A41.9 - SEPSIS, UNSPECIFIED ORGANISM; R65.20 - SEVERE SEPSIS WITHOUT SEPTIC SHOCK (2) Cellulitis Code(s): L03.90 - CELLULITIS, UNSPECIFIED Qualifiers: Site of cellulitis: extremity Site of cellulitis of extremity: upper extremity Laterality: right Qualified Code(s): L03.113 - Cellulitis of right upper limb (3) Dementia Code(s): F03.90 - UNSPECIFIED DEMENTIA WITHOUT BEHAVIORAL DISTURBANCE (4) HTN (hypertension) Code(s): I10 - ESSENTIAL (PRIMARY) HYPERTENSION (5) Severe protein-calorie malnutrition Code(s): E43 - UNSPECIFIED SEVERE PROTEIN-CALORIE MALNUTRITION (6) Hypothyroidism Code(s): E03.9 - HYPOTHYROIDISM, UNSPECIFIED (7) Hypernatremia Code(s): E87.0 - HYPEROSMOLALITY AND HYPERNATREMIA plan continue abx elevation of hand rest as per the team continue current mgmt
[2017-12-01] MEDS: DOCUSATE SODIUM 100 MG CAPSULE (FP) PO SCH ×2 (21:17→21:30)
[2017-12-02] MEDS ORDERED: DEXTROSE 5%-WATER - 50 ML IVPB ONE ×3 (00:46→17:12)
[2017-12-02] MEDS ORDERED: PIPERACILLIN/TAZOBACTAM 3.375 GM VIAL IVPB ONE ×3 (00:46→17:12)
[2017-12-02] MEDS: CLINDAMYCIN 300 MG PREMIX IVPB 300 MG/50 ML BAG IVPB SCH ×3 (01:22→17:46)
[2017-12-02] MEDS: HEPARIN NA (PORCINE) 5,000 UNITS/ML 1ML VIAL SQ SCH ×3 (01:26→17:55)
[2017-12-02] MEDS: PIPERACILLIN/TAZOB 3.375 GM 3.375 GM in DEXTROSE 5%-WATER - 50 ML IVPB SCH ×3 (01:55→17:56)
[2017-12-02] MEDS: LEVOTHYROXINE NA 50 MCG TABLET (FP) PO SCH (06:08)
[2017-12-02 07:22] LABS: BASO % 1.1 % (0-2.0); EOS % 1.7 % (0-4.5); HEMATOCRIT 31.8 % (32.4-45.2); HEMOGLOBIN 10.7 GM/dL (10.7-15.3); LYMPH % 20.3 % (8-40); MCH 28.8 pg (25.7-33.7); MCHC 33.6 g/dl (32.0-36.0); MEAN CELL VOLUME 85.7 fl (80-96); MEAN PLT VOLUME 8.4 fl (7.5-11.1); MONO % 6.6 % (3.8-10.2); NEUT % 70.3 % (42.8-82.8); PLATELET COUNT 384 K/MM3 (134-434); RBC 3.71 M/mm3 (3.60-5.2); RDW 15.7 % (11.6-15.6); WHITE BLOOD COUNT 7.8 K/mm3 (4.0-10.0)
[2017-12-02] MEDS: D5-1/2NS+20 MEQ KCL - 20 MEQ/1,000 ML INFUS.BAG IV SCH (10:06)
[2017-12-02] MEDS ORDERED: PT OWN MED DRAWER 7, Y5N ONE ×2 (10:10→17:12)
[2017-12-02] MEDS: QUINAPRIL HCL 10 MG TABLET (FP) PO SCH (10:17)
[2017-12-02] MEDS: MEMANTINE HCL 10 MG TABLET (FP) PO SCH ×2 (10:18→21:10)
[2017-12-02] MEDS: FOLIC ACID 1 MG TABLET (FP) PO SCH (10:18)
[2017-12-02] MEDS: CHOLECALCIFEROL (VITAMIN D3) 1,000 UNIT TABLET (FP) PO SCH (10:18)
--- NOTE | 2017-12-02 11:00 | PN ---
Progress Note (short form) - Note Progress Note: Dr. Hoyt to document today. Hospice will make a decision at 6PM whether here or discharged at home Re: decision to reinstate hospice. Otherwise VNS with Aide. mobile home lot utility worker to be notified if home today or not so Hospice can be called. Probably can D/C IV Antibiotics
--- NOTE | 2017-12-02 11:12 | PN ---
Progress Note, CLOSING SPECIALIST - Note Progress Note: Selected Entries 11/30/17 11/30/17 11/30/17 05:58 10:00 14:00 Breakfast 75% Lunch 75% Supper Temperature 99.8 F H 97.7 F 98.8 F 11/30/17 11/30/17 12/01/17 18:00 23:00 05:27 Breakfast Lunch Supper 50% Temperature 99.6 F 98.1 F 12/01/17 10:14 Breakfast 75% Lunch Supper Temperature Laboratory Tests 12/01/17 06:45 WBC 7.2 Selected Entries 12/01/17 12/01/17 12/01/17 05:27 10:00 10:14 Breakfast 75% Lunch Supper Temperature 98.1 F 97.4 F L 12/01/17 12/01/17 12/01/17 13:38 15:17 19:28 Breakfast Lunch 75% Supper 75% Temperature 98.5 F 12/01/17 12/02/17 12/02/17 22:05 06:43 10:01 Breakfast Lunch Supper Temperature 97.0 F L 99.1 F 98.5 F Laboratory Tests 12/02/17 06:40 WBC 7.8 Improved PO intake with good tolerance. Provide Magic cup/Ensure Compact b/n meals, as indicated. No further f/u indicated at this time.
--- NOTE | 2017-12-02 12:09 | PN ---
Progress Note, Physician History of Present Illness: stable doing well swelling improving - Current Medication List Current Medications: Active Medications Cholecalciferol (Vitamin D3 -) 2,000 unit PO DAILY [facility] Last Admin: 12/02/17 10:18 Dose: 2,000 unit Docusate Sodium (Colace -) 300 mg PO HS [facility] Last Admin: 12/01/17 21:30 Dose: Not Given Folic Acid (Folic Acid -) 1 mg PO DAILY [facility] Last Admin: 12/02/17 10:18 Dose: 1 mg Heparin Sodium (Porcine) (Heparin -) 5,000 unit SQ Q8H-IV [facility] Last Admin: 12/02/17 10:17 Dose: 5,000 unit Piperacillin Sod/Tazobactam (Sod 3.375 gm/ Dextrose) 50 mls @ 100 mls/hr IVPB Q8H-IV [facility]; Protocol Last Admin: 12/02/17 10:24 Dose: 100 mls/hr Potassium Chloride/Dextrose/Sod Cl (D5-1/2ns+20 Meq Kcl -) 20 meq in 1,000 mls @ 75 mls/hr IV ASDIR [facility] Last Admin: 12/02/17 10:06 Dose: 75 mls/hr Clindamycin Phosphate (Cleocin 300 Mg Premix Ivpb) 300 mg in 50 mls @ 100 mls/ hr IVPB Q8H-IV [facility]; Protocol Last Admin: 12/02/17 10:15 Dose: 100 mls/hr Ibuprofen (Advil -) 200 mg PO Q6H PRN PRN Reason: PAIN LEVEL 4 - 6 Levothyroxine Sodium (Synthroid -) 50 mcg PO ACBK [facility] Last Admin: 12/02/17 06:08 Dose: 50 mcg Memantine (Namenda -) 10 mg PO BID [facility] Last Admin: 12/02/17 10:18 Dose: 10 mg Quinapril HCl (Accupril -) 10 mg PO DAILY [facility] Last Admin: 12/02/17 10:17 Dose: 10 mg - Objective Vital Signs: Vital Signs Temperature 98.5 F 12/02/17 10:01 Pulse Rate 87 12/02/17 10:01 Respiratory Rate 20 12/02/17 10:01 Blood Pressure 113/62 12/02/17 10:01 O2 Sat by Pulse Oximetry (%) 96 12/01/17 20:28 Constitutional: Yes: No Distress, Calm Cardiovascular: Yes: Regular Rate and Rhythm Respiratory: Yes: Regular, CTA Bilaterally Gastrointestinal: Yes: Normal Bowel Sounds, Soft Musculoskeletal: Yes: WNL Extremities: Yes: Other Neurological: Yes: Alert, Oriented Psychiatric: Yes: Alert, Oriented Labs: CBC, BMP 12/02/17 06:40 12/01/17 06:45 INR, PTT INR 1.11 (0.82-1.09) 11/26/17 01:18 Assessment/Plan Problem List - Problems (1) Severe sepsis Code(s): A41.9 - SEPSIS, UNSPECIFIED ORGANISM; R65.20 - SEVERE SEPSIS WITHOUT SEPTIC SHOCK (2) Cellulitis Code(s): L03.90 - CELLULITIS, UNSPECIFIED Qualifiers: Site of cellulitis: extremity Site of cellulitis of extremity: upper extremity Laterality: right Qualified Code(s): L03.113 - Cellulitis of right upper limb (3) Dementia Code(s): F03.90 - UNSPECIFIED DEMENTIA WITHOUT BEHAVIORAL DISTURBANCE (4) HTN (hypertension) Code(s): I10 - ESSENTIAL (PRIMARY) HYPERTENSION (5) Severe protein-calorie malnutrition Code(s): E43 - UNSPECIFIED SEVERE PROTEIN-CALORIE MALNUTRITION (6) Hypothyroidism Code(s): E03.9 - HYPOTHYROIDISM, UNSPECIFIED (7) Hypernatremia Code(s): E87.0 - HYPEROSMOLALITY AND HYPERNATREMIA plan will switch to oral abx tomorrow rest continue current mgmt elevation of the arm rest as per primary
--- NOTE | 2017-12-02 14:19 | PN ---
Progress Note, Physician Chief Complaint: Ms Rust says she is feeling okay today, cannot obtain further subjective but more interactive than last week - Current Medication List Current Medications: Active Medications Cholecalciferol (Vitamin D3 -) 2,000 unit PO DAILY [facility] Last Admin: 12/02/17 10:18 Dose: 2,000 unit Docusate Sodium (Colace -) 300 mg PO HS [facility] Last Admin: 12/01/17 21:30 Dose: Not Given Folic Acid (Folic Acid -) 1 mg PO DAILY [facility] Last Admin: 12/02/17 10:18 Dose: 1 mg Heparin Sodium (Porcine) (Heparin -) 5,000 unit SQ Q8H-IV [facility] Last Admin: 12/02/17 10:17 Dose: 5,000 unit Piperacillin Sod/Tazobactam (Sod 3.375 gm/ Dextrose) 50 mls @ 100 mls/hr IVPB Q8H-IV [facility]; Protocol Last Admin: 12/02/17 10:24 Dose: 100 mls/hr Potassium Chloride/Dextrose/Sod Cl (D5-1/2ns+20 Meq Kcl -) 20 meq in 1,000 mls @ 75 mls/hr IV [facility] Last Admin: 12/02/17 10:06 Dose: 75 mls/hr Clindamycin Phosphate (Cleocin 300 Mg Premix Ivpb) 300 mg in 50 mls @ 100 mls/ hr IVPB Q8H-IV [facility]; Protocol Last Admin: 12/02/17 10:15 Dose: 100 mls/hr Ibuprofen (Advil -) 200 mg PO Q6H PRN PRN Reason: PAIN LEVEL 4 - 6 Levothyroxine Sodium (Synthroid -) 50 mcg PO ACBK [facility] [place] Last Admin: 12/02/17 06:08 Dose: 50 mcg Memantine (Namenda -) 10 mg PO BID [facility] [place] Last Admin: 12/02/17 10:18 Dose: 10 mg Quinapril HCl (Accupril -) 10 mg PO DAILY [facility] Last Admin: 12/02/17 10:17 Dose: 10 mg - Objective Vital Signs: Vital Signs Temperature 36.9 C 12/02/17 10:01 Pulse Rate 87 12/02/17 10:01 Respiratory Rate 20 12/02/17 10:01 Blood Pressure 113/62 12/02/17 10:01 O2 Sat by Pulse Oximetry (%) 96 12/02/17 09:00 Constitutional: Yes: No Distress, Calm, Thin Cardiovascular: Yes: Regular Rate and Rhythm. No: Gallop, Murmur, Rub Respiratory: Yes: Regular, CTA Bilaterally. No: Rales, Rhonchi, Wheezes Gastrointestinal: Yes: Normal Bowel Sounds, Soft. No: Distention, Tenderness Extremities: Yes: WNL Edema: No Labs: CBC, BMP 12/02/17 06:40 12/01/17 06:45 INR, PTT INR 1.11 (0.82-1.09) 11/26/17 01:18 Problem List - Problems (1) Severe sepsis Code(s): A41.9 - SEPSIS, UNSPECIFIED ORGANISM; R65.20 - SEVERE SEPSIS WITHOUT SEPTIC SHOCK (2) Cellulitis Code(s): L03.90 - CELLULITIS, UNSPECIFIED Qualifiers: Site of cellulitis: extremity Site of cellulitis of extremity: upper extremity Laterality: right Qualified Code(s): L03.113 - Cellulitis of right upper limb (3) Dementia Code(s): F03.90 - UNSPECIFIED DEMENTIA WITHOUT BEHAVIORAL DISTURBANCE (4) HTN (hypertension) Code(s): I10 - ESSENTIAL (PRIMARY) HYPERTENSION (5) Severe protein-calorie malnutrition Code(s): E43 - UNSPECIFIED SEVERE PROTEIN-CALORIE MALNUTRITION (6) Hypothyroidism Code(s): E03.9 - HYPOTHYROIDISM, UNSPECIFIED (7) Hypernatremia Code(s): E87.0 - HYPEROSMOLALITY AND HYPERNATREMIA Assessment/Plan (1) Severe sepsis Assessment/Plan: -resolved -continue IV antibiotics -d/c tomorrow in preparation of discharge Code(s): A41.9 - SEPSIS, UNSPECIFIED ORGANISM; R65.20 - SEVERE SEPSIS WITHOUT SEPTIC SHOCK (2) Cellulitis Assessment/Plan: -looks much improved -will finish course of antibiotics tonight -plan for discharge tomorrow Code(s): L03.90 - CELLULITIS, UNSPECIFIED Qualifiers: Site of cellulitis: extremity Site of cellulitis of extremity: upper extremity Laterality: right Qualified Code(s): L03.113 - Cellulitis of right upper limb (3) Dementia Assessment/Plan: -possible home with hospice, awaiting evaluation Code(s): F03.90 - UNSPECIFIED DEMENTIA WITHOUT BEHAVIORAL DISTURBANCE (4) HTN (hypertension) Assessment/Plan: -well controlled Code(s): I10 - ESSENTIAL (PRIMARY) HYPERTENSION (5) Severe protein-calorie malnutrition Assessment/Plan: -secondary to dementia -plan for home hospice Code(s): E43 - UNSPECIFIED SEVERE PROTEIN-CALORIE MALNUTRITION (6) Hypothyroidism Assessment/Plan: -continue levothyroxine Code(s): E03.9 - HYPOTHYROIDISM, UNSPECIFIED (7) Hypernatremia Assessment/Plan: -resolved -stop IVF Code(s): E87.0 - HYPEROSMOLALITY AND HYPERNATREMIA (8) HypoK/PO4 -replaced -stop IVF
[2017-12-02] MEDS: DOCUSATE SODIUM 100 MG CAPSULE (FP) PO SCH (21:10)
[2017-12-03] MEDS ORDERED: PIPERACILLIN/TAZOBACTAM 3.375 GM VIAL IVPB ONE ×2 (02:48→09:43)
[2017-12-03] MEDS ORDERED: DEXTROSE 5%-WATER - 50 ML IVPB ONE ×2 (02:48→09:43)
[2017-12-03] MEDS ORDERED: PT OWN MED DRAWER 7, Y5N ONE ×2 (02:51→09:57)
[2017-12-03] MEDS: PIPERACILLIN/TAZOB 3.375 GM 3.375 GM in DEXTROSE 5%-WATER - 50 ML IVPB SCH ×2 (02:52→09:50)
[2017-12-03] MEDS: CLINDAMYCIN 300 MG PREMIX IVPB 300 MG/50 ML BAG IVPB SCH ×2 (02:52→10:01)
[2017-12-03] MEDS: HEPARIN NA (PORCINE) 5,000 UNITS/ML 1ML VIAL SQ SCH ×2 (02:52→09:50)
[2017-12-03] MEDS: LEVOTHYROXINE NA 50 MCG TABLET (FP) PO SCH (06:12)
[2017-12-03 08:57] VITALS: BP 126/69; PULSE 80
--- NOTE | 2017-12-03 08:57 | PN ---
Progress Note (short form) - Note Progress Note: Dr. Hoyt to document today. ? Hospice
[2017-12-03] MEDS: CHOLECALCIFEROL (VITAMIN D3) 1,000 UNIT TABLET (FP) PO SCH (09:50)
[2017-12-03] MEDS: FOLIC ACID 1 MG TABLET (FP) PO SCH (09:50)
[2017-12-03] MEDS: MEMANTINE HCL 10 MG TABLET (FP) PO SCH (09:50)
[2017-12-03] MEDS: QUINAPRIL HCL 10 MG TABLET (FP) PO SCH (10:02)
--- NOTE | 2017-12-03 12:18 | DS ---
Physical Examination Vital Signs: Vital Signs Temperature 36.8 C 12/03/17 07:50 Pulse Rate 80 12/03/17 07:50 Respiratory Rate 16 12/03/17 07:50 Blood Pressure 126/69 12/03/17 07:50 O2 Sat by Pulse Oximetry (%) 97 12/02/17 22:00 Constitutional: Yes: No Distress, Calm, Thin Cardiovascular: Yes: Regular Rate and Rhythm. No: Gallop, Murmur, Rub Respiratory: Yes: Regular, CTA Bilaterally. No: Rales, Rhonchi, Wheezes Gastrointestinal: Yes: Normal Bowel Sounds, Soft. No: Distention, Tenderness Extremities: Yes: WNL Edema: No Labs: CBC, BMP 12/02/17 06:40 12/01/17 06:45 Discharge Summary Reason For Visit: SEVERE SEPSIS CELLULITIS Current Active Problems Cellulitis (Acute) Dementia (Acute) HTN (hypertension) (Acute) Hypernatremia (Acute) Sepsis (Acute) Severe protein-calorie malnutrition (Acute) Severe sepsis (Acute) UTI (urinary tract infection) (Acute) Hospital Course: (1) Severe sepsis Code(s): A41.9 - SEPSIS, UNSPECIFIED ORGANISM; R65.20 - SEVERE SEPSIS WITHOUT SEPTIC SHOCK (2) Cellulitis Code(s): L03.90 - CELLULITIS, UNSPECIFIED Qualifiers: Site of cellulitis: extremity Site of cellulitis of extremity: upper extremity Laterality: right Qualified Code(s): L03.113 - Cellulitis of right upper limb (3) Dementia Code(s): F03.90 - UNSPECIFIED DEMENTIA WITHOUT BEHAVIORAL DISTURBANCE (4) HTN (hypertension) Code(s): I10 - ESSENTIAL (PRIMARY) HYPERTENSION (5) Severe protein-calorie malnutrition Code(s): E43 - UNSPECIFIED SEVERE PROTEIN-CALORIE MALNUTRITION (6) Hypothyroidism Code(s): E03.9 - HYPOTHYROIDISM, UNSPECIFIED (7) Hypernatremia Code(s): E87.0 - HYPEROSMOLALITY AND HYPERNATREMIA Ms Rust is a very pleasant 87 year old female with end stage dementia who comes in with severe sepsis secondary to cellulitis of RUE. She was admitted and seen by ID. She was placed on zosyn and clindamycin with significant improvement. She is safe for discharge home with four more days of augmentin per ID. She was originally on hospice as an outpatient but graduated, however here she had severe protein calorie malnutrition with low po intake. Hospice was consulted and she was accepted to home hospice. She is currently stable for discharge home with home hospice. 32 minutes spent in preparation of this discharge Condition: Stable - Instructions Diet, Activity, Other Instructions: diet and activity for comfort Referrals: Alvaro Nguyen MD [Primary Care Provider] - Disposition: VNS/HOME HEALTH CARE - Home Medications Comprehensive Discharge Medication List: Ambulatory Orders Levothyroxine [Synthroid -] 50 mcg PO DAILY 06/21/14 Memantine HCl [Namenda -] 10 mg PO BID 06/21/14 Quinapril HCl [Accupril -] 10 mg PO DAILY 06/21/14 Oxycodone HCl/Acetaminophen [Percocet 5-325 mg Tablet] 1 - 2 tab PO Q4H PRN 09/12 Docusate Sodium [Colace -] 300 mg PO HS capsule 07/05/16 Ibuprofen [Advil -] 200 mg PO Q6H PRN tablet 12/03/17
--- NOTE | 2017-12-03 14:20 | PN ---
Progress Note, Physician History of Present Illness: stable no new issues swelling much better - Current Medication List Current Medications: Active Medications Cholecalciferol (Vitamin D3 -) 2,000 unit PO DAILY [facility] Last Admin: 12/03/17 09:50 Dose: 2,000 unit Docusate Sodium (Colace -) 300 mg PO HS [facility] Last Admin: 12/02/17 21:10 Dose: Not Given Folic Acid (Folic Acid -) 1 mg PO DAILY [facility] Last Admin: 12/03/17 09:50 Dose: 1 mg Heparin Sodium (Porcine) (Heparin -) 5,000 unit SQ Q8H-IV [facility] Last Admin: 12/03/17 09:50 Dose: 5,000 unit Piperacillin Sod/Tazobactam (Sod 3.375 gm/ Dextrose) 50 mls @ 100 mls/hr IVPB Q8H-IV [facility]; Protocol Last Admin: 12/03/17 09:50 Dose: 100 mls/hr Clindamycin Phosphate (Cleocin 300 Mg Premix Ivpb) 300 mg in 50 mls @ 100 mls/ hr IVPB Q8H-IV [facility]; Protocol Last Admin: 12/03/17 10:01 Dose: 100 mls/hr Ibuprofen (Advil -) 200 mg PO Q6H PRN PRN Reason: PAIN LEVEL 4 - 6 Levothyroxine Sodium (Synthroid -) 50 mcg PO ACBK [facility] Last Admin: 12/03/17 06:12 Dose: 50 mcg Memantine (Namenda -) 10 mg PO BID [facility] Last Admin: 12/03/17 09:50 Dose: 10 mg Quinapril HCl (Accupril -) 10 mg PO DAILY [facility] Last Admin: 12/03/17 10:02 Dose: 10 mg - Objective Vital Signs: Vital Signs Temperature 98.2 F 12/03/17 07:50 Pulse Rate 80 12/03/17 07:50 Respiratory Rate 16 12/03/17 07:50 Blood Pressure 126/69 12/03/17 07:50 O2 Sat by Pulse Oximetry (%) 95 12/03/17 09:00 Constitutional: Yes: No Distress, Calm Cardiovascular: Yes: Regular Rate and Rhythm Respiratory: Yes: Regular, CTA Bilaterally Gastrointestinal: Yes: Normal Bowel Sounds, Soft Musculoskeletal: Yes: WNL Extremities: Yes: Other Neurological: Yes: Alert, Oriented Psychiatric: Yes: Alert, Oriented Labs: CBC, BMP 12/02/17 06:40 12/01/17 06:45 INR, PTT INR 1.11 (0.82-1.09) 11/26/17 01:18 Assessment/Plan Problem List - Problems (1) Severe sepsis Code(s): A41.9 - SEPSIS, UNSPECIFIED ORGANISM; R65.20 - SEVERE SEPSIS WITHOUT SEPTIC SHOCK (2) Cellulitis Code(s): L03.90 - CELLULITIS, UNSPECIFIED Qualifiers: Site of cellulitis: extremity Site of cellulitis of extremity: upper extremity Laterality: right Qualified Code(s): L03.113 - Cellulitis of right upper limb (3) Dementia Code(s): F03.90 - UNSPECIFIED DEMENTIA WITHOUT BEHAVIORAL DISTURBANCE (4) HTN (hypertension) Code(s): I10 - ESSENTIAL (PRIMARY) HYPERTENSION (5) Severe protein-calorie malnutrition Code(s): E43 - UNSPECIFIED SEVERE PROTEIN-CALORIE MALNUTRITION (6) Hypothyroidism Code(s): E03.9 - HYPOTHYROIDISM, UNSPECIFIED (7) Hypernatremia Code(s): E87.0 - HYPEROSMOLALITY AND HYPERNATREMIA plan patient can be switched to oral augmentin for another 4 days rest continue current mgmt
[2017-12-03 14:34] VITALS: TEMP 101.7
== END 2017-12-03 17:21 | disposition home health service (06) | DRG 871 ==
LOC: JER 23:11 → JERBED 11-26 03:16 → UNDOADMIN 11-26 03:31 → J6S 11-27 16:43
PROVIDERS: ADMIT Internal Medicine; ATTEND Internal Medicine
DX: A41.9 Sepsis, unspecified organism (principal); G93.41 Metabolic encephalopathy; R53.2 Functional quadriplegia; E43 Unspecified severe protein-calorie malnutrition; L03.113 Cellulitis of right upper limb; N39.0 Urinary tract infection, site not specified; Z68.1 Body mass index [BMI] 19.9 or less, adult; E87.0 Hyperosmolality and hypernatremia; R64 Cachexia; R65.20 Severe sepsis without septic shock; I10 Essential (primary) hypertension; J44.9 Chronic obstructive pulmonary disease, unspecified; F03.90 Unspecified dementia, unspecified severity, without behavioral disturbance, psychotic disturbance, mood disturbance, and anxiety; K59.00 Constipation, unspecified; E03.9 Hypothyroidism, unspecified; E87.6 Hypokalemia; B96.20 Unspecified Escherichia coli [E. coli] as the cause of diseases classified elsewhere; D64.9 Anemia, unspecified
CPT/HCPCS: 36415; 71045-TC-FY; 73110-TC-RT-FY; 73130-TC-RT-FY; 80048; 80053; 81003; 81015; 82803; 83605; 83735; 84100; 84484; 84550; 85025; 85610; 85651; 85730; 86140; 87040; 87086; 87186; 93005; 93010; 93971; 99285-25; J0131; J1644; J7030

== ENCOUNTER 2018-03-16 11:36 | Inpatient (IN) | payer OTHER ==
--- NOTE | 2018-03-16 11:56 | PDOC ---
Attending Attestation - Resident Resident Name: Alvaro Henriquez - HPI HPI: 03/16/18 12:28 PT presents to the ED after being found unresponsive at home. Son reports that the patient was in her usual state of health until this AM, and was in her usual state of health when she awoke. As per her son, she has a history of dementia and had been placed on hospice for failure to thrive. Patient was recently taken off hospice. Son states that she is minimally verbal and does not walk at baseline. 03/16/18 13:13 - Physicial Exam PE: 03/16/18 13:15 Agree with resident exam. Patient is extremely cachectic. She opens her eyes but is non verbal. Normotensive and in sinus rhythm in the 90s on arrival to the ED. - Critical Care Time Total Critical Care Time: 30 Critical Care Statement: The care of this patient involved high complexity decision making to prevent further life threatening deterioration of the patient 's condition and/or to evaluate & treat vital organ system(s) failure or risk of failure. - Medical Decision Making 03/16/18 14:16 Pt presents to the ED after found unresponsive by son. Now is awake but not following commands. Labs show evidence of sepsis, with lactate of 3.6. Patient is also mildly hypothermic. Will start broad spectrum antibiotics, check urine and blood cultures and admit to medicine.
[2018-03-16 12:24] LABS: BASO % 0.7 % (0-2.0); EOS % 2.3 % (0-4.5); HEMATOCRIT 38.5 % (32.4-45.2); HEMOGLOBIN 12.3 GM/dL (10.7-15.3); LYMPH % 33.6 % (8-40); MCH 27.6 pg (25.7-33.7); MCHC 31.9 g/dl (32.0-36.0); MEAN CELL VOLUME 86.4 fl (80-96); MEAN PLT VOLUME 10.9 fl (7.5-11.1); MONO % 5.7 % (3.8-10.2); NEUT % 57.7 % (42.8-82.8); RBC 4.46 M/mm3 (3.60-5.2); RDW 15.5 % (11.6-15.6); VENOUS PC02 51.7 mmHg (38-52); VENOUS PH 7.3 (7.32-7.42); VENOUS PO2 27.1 mmHg (28-48); WHITE BLOOD COUNT 4.6 K/mm3 (4.0-10.0)
[2018-03-16] MEDS ORDERED: SODIUM CHLORIDE 1,000 ML IV STA (12:24)
--- NOTE | 2018-03-16 12:28 | PDOC ---
History of Present Illness - General Chief Complaint: Altered Mental Status Stated Complaint: Altered Mental Status Time Seen by Provider: 03/16/18 11:55 History Source: Family Exam Limitations: Clinical Condition, Dementia - History of Present Illness Initial Comments: 03/16/18 12:29 Patient is 87F with history of dementia, HTN, COPD, admission in December for sepsis secondary to cellulitis here today complaining of altered mental status. Her son states that she was sitting in her wheelchair when she slumped over. Denies shaking or seizure like activity. EMS reports that patient was hypotensive to 90/60s with a heart rate in the 40s. Patient was given 0.5mg of atropine, with patient responding with HRs in the 80s/90s. Patient then became more alert and opened her eyes. Patient is currently on hospice for failure to thrive, son states that she is full code and that she is to be off hospice on the first. Field EKG showed junctional rhythm with rate of 45. Past History - Past Medical History Allergies/Adverse Reactions: Allergies Allergy/AdvReac Type Severity Reaction Status Date / Time No Known Allergies Allergy Verified 03/16/18 11:51 Home Medications: Ambulatory Orders Levothyroxine [Synthroid -] 50 mcg PO DAILY 06/21/14 Docusate Sodium [Colace -] 300 mg PO HS capsule 07/05/16 Ibuprofen [Advil -] 200 mg PO Q6H PRN tablet 12/03/17 Acetaminophen [8Hr Arthritis Pain Relief] 650 mg PO 03/16/18 Bisacodyl [Biscolax] 10 mg RC PRN PRN 03/16/18 Lorazepam [Ativan] 0.5 mg PO Q6H 03/16/18 Senna [place] Extract [Senna] 10 ml PO BID 03/16/18 COPD: No Dementia: Yes HTN: Yes - Surgical History Abdominal Surgery: Yes (left inguinal hernia) Cholecystectomy: Yes - Immunization History Immunization Up to Date: Yes - Suicide/Smoking/Psychosocial Hx Smoking Status: No Smoking History: Never smoked Have you smoked in the past 12 months: No Number of Cigarettes Smoked Daily: 0 Information on smoking cessation initiated: No Hx Alcohol Use: No Drug/Substance Use Hx: No Substance Use Type: None Review of Systems - Review of Systems Able to Perform ROS?: No (2/2 clinical condition) *Physical Exam - Vital Signs Last Vital Signs Temp Pulse Resp BP Pulse Ox 96.1 F L 83 18 123/75 100 03/16/18 12:25 03/16/18 12:25 03/16/18 12:25 03/16/18 12:25 03/16/18 12:25 - Physical Exam Comments: 03/16/18 12:33 GENERAL: Awake, nonverbal, cachetic HEAD: No signs of trauma, normocephalic, atraumatic EYES: PERRLA, EOMI, sclera anicteric, conjunctiva clear ENT: Auricles normal inspection, hearing grossly normal, nares patent, oropharynx clear without exudates. Moist mucosa NECK: Normal ROM, supple, no lymphadenopathy, JVD, or masses LUNGS: No distress, clear to auscultation bilaterally HEART: Regular rate and rhythm, normal S1 and S2, no murmurs, rubs or gallops, peripheral pulses normal and equal bilaterally. ABDOMEN: Nontender, normoactive bowel sounds. No guarding, no rebound. No masses EXTREMITIES: Normal inspection, Normal range of motion, no edema. No clubbing or cyanosis. NEUROLOGICAL: Cranial nerves II through XII grossly intact. Moves all extremities SKIN: Warm, Dry, normal turgor, no rashes or lesions noted. ED Treatment Course - LABORATORY CBC & Chemistry Diagram: 03/16/18 12:02 03/16/18 12:02 - ADDITIONAL ORDERS Additional order review: Laboratory Results 03/16/18 11:48 POC Glucometer [id number] 03/16/18 11:48 POC Glucometer [id number] - RADIOLOGY Radiology Studies Ordered: Category Date Time Status CHEST X-RAY PORTABLE* [RAD] Stat Radiology 03/16/18 11:55 Ordered Medical Decision Making - Medical Decision Making 03/16/18 12:34 Patient is 87F with history of COPD, HTN, dementia here today with hypotension, bradycardia, altered mental status. Vital signs notable for temp of 96.1. Placed under warm blankets. DDx is broad, and includes, but is not limited to: UTI, pneumonia, occult infection, ACS, arrhythmia. Septic workup initiated, given 1L fluids. EKG shows normal sinus rhythm with rate of 92. No st elevations/depressions. No significant t wave abnormalities. Normal axis. Normal intervals. 03/16/18 14:02 Laboratory Tests 03/16/18 03/16/18 03/16/18 12:02 12:02 12:02 WBC 4.6 Hgb 12.3 Plt Count 94 L D VBG pH 7.30 L D Sodium 148 H Potassium 3.4 L Chloride 113 H BUN 21 H Creatinine 0.6 Lactic Acid Troponin I < 0.02 Urine Nitrite Ur Leukocyte Esterase 03/16/18 03/16/18 12:02 12:10 WBC Hgb Plt Count VBG pH Sodium Potassium Chloride BUN Creatinine Lactic Acid 3.6 H* Troponin I Urine Nitrite Negative Ur Leukocyte Esterase Negative CBC normal. VBG shows acidosis. CMP suggests dehydration given BUN/Cr. Trop undetectable. Lactic acid 3.6. Given vanc/zosyn for possible infection. UA negative. Pending head CT, wet read shows no bleed. 03/16/18 14:43 CT shows no acute process. Approved for ICU, accepted by Dr Hoyt. 03/16/18 16:08 Repeat lactate 2.8. *DC/Admit/Observation/Transfer Diagnosis at time of Disposition: Sepsis - Discharge Dispostion Condition at time of disposition: Critical Decision to Admit order: Yes - Referrals - Patient Instructions - Post Discharge Activity
[2018-03-16 12:31] LABS: URINE APPEARANCE CLEAR; URINE BILIRUBIN NEGATIVE (<2.0 mg/dL); URINE COLOR LTYELLOW; URINE GLUCOSE (UA) NEGATIVE (NEGATIVE); URINE KETONE NEGATIVE (NEGATIVE); URINE LEUK ESTERASE NEGATIVE (NEGATIVE); URINE NITRITE NEGATIVE (NEGATIVE); URINE PROTEIN NEGATIVE (NEGATIVE); URINE UROBILINOGEN NEGATIVE mg/dL (0.2-1.0)
[2018-03-16 12:31] LABS: ADD RBC MORPHOLOGY YES
[2018-03-16 12:36] LABS: INR 1.04 (0.83-1.09); PROTHROMBIN TIME (PATIENT) 11.8 SEC (9.7-13.0)
[2018-03-16 12:39] LABS: ACTIVATED PTT 31.9 SECONDS (25.2-36.5)
[2018-03-16 12:52] LABS: PLATELET COUNT 94 K/MM3 (134-434)
[2018-03-16 12:53] LABS: ANISOCYTOSIS 1+; PLATELET ESTIMATE DECREASED
[2018-03-16 13:04] LABS: ALBUMIN 3.1 g/dl (3.4-5.0); ALK PHOS 55 U/L (45-117); ANION GAP 9 MMOL/L (8-16); BILIRUBIN,TOTAL 0.3 mg/dL (0.2-1.0); BLOOD UREA NITROGEN 21 mg/dL (7-18); CALCIUM 8.4 mg/dL (8.5-10.1); CHLORIDE 113 mmol/L (98-107); CO2 26 mmol/L (21-32); CREATININE 0.6 mg/dL (0.55-1.3); GLUCOSE,RANDOM 80 mg/dL (74-106); POTASSIUM 3.4 mmol/L (3.5-5.1); SGOT/AST 17 U/L (15-37); SGPT/ALT 13 U/L (13-61); SODIUM 148 mmol/L (136-145); TOT PROT 5.8 g/dl (6.4-8.2)
[2018-03-16] MEDS ORDERED: PIPERACILLIN/TAZOB 3.375 GM 3.375 GM in DEXTROSE 5%-WATER - 50 ML IVPB ONE (13:08)
[2018-03-16] MEDS ORDERED: VANCOMYCIN 1,000 MG in DEXTROSE 5%-WATER - 250 ML IVPB ONE (13:08)
[2018-03-16] MEDS ORDERED: PIPERACILLIN/TAZOB 3.375 GM 3.375 GM/50 ML BAG IVPB ONE (13:13)
[2018-03-16] MEDS ORDERED: VANCOMYCIN 1 GRAM (PRE-DOCKED) 1,000 MG/250 ML BAG IVPB ONE (13:13)
--- NOTE | 2018-03-16 14:28 | EKG ---
Test Reason : Blood Pressure : / mmHG Vent. Rate : 092 BPM Atrial Rate : 092 BPM P-R Int : 152 ms QRS Dur : 076 ms QT Int : 364 ms P-R-T Axes : 055 015 064 degrees QTc Int : 450 ms POOR DATA QUALITY, INTERPRETATION MAY BE ADVERSELY AFFECTED NORMAL SINUS RHYTHM NONSPECIFIC T WAVE ABNORMALITY ABNORMAL ECG WHEN COMPARED WITH ECG OF 26-NOV-2017 01:04, T WAVE INVERSION NO LONGER EVIDENT IN ANTEROLATERAL LEADS Confirmed by HÉCTOR BLOCK MD ([id number]) on 03/16/2018 2:27:53 PM Referred By: Confirmed By:HÉCTOR BLOCK MD
[2018-03-16] MEDS ORDERED: ACETAMINOPHEN 325 MG TABLET (FP) PO PRN (14:53)
[2018-03-16] MEDS ORDERED: SODIUM CHLORIDE 1,000 ML IV SCH (15:00)
[2018-03-16] MEDS ORDERED: ALBUTEROL SO4 0.083% IH SOL 2.5 MG/3 ML VIAL.NEB. NEB PRN ×2 (15:10→16:05)
[2018-03-16] MEDS ORDERED: LACTATED RINGERS SOLUTION 1,000 ML/1,000 ML INFUS.BAG IV SCH ×2 (15:15→16:06)
--- NOTE | 2018-03-16 15:16 | HP ---
Admitting History and Physical - Primary Care Physician PCP: Alvaro Nguyen - Admission Chief Complaint: Unable to obtain History of Present Illness: Ms Rust is an 87 year old female who comes in after being unresponsive at home. She has severe dementia and am unable to obtain a history from her. Son is at bedside (he is also HCP) and entire history is obtained from him. He says that Ms Rust has been doing well at home. He states she has not had any issues and was doing so well that she was planned to come off of hospice on 03/30. She was to see Dr Nguyen today and was sitting in a wheelchair for about 1.5 hours waiting for transportation. After sitting this long she slumped over and became unresponsive. At first the son thought she was sleeping but when he tried to arouse her he was unable. He and the hospice nurse placed her in bed. He says she felt cold to touch but was sweating. Because of this EMS was called. Per records she was found to be bradycardic and hypotensive and received atropine. Her heart rate improved and she woke up. She was brought here for further evaluation and care. Son states that it was between 3-5 minutes from patient becoming unresponsive and EMS arriving. 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 Cardiovascular: Yes: HTN Endocrine: Yes: Hypothyroidism - Past Surgical History Past Surgical History: Yes: None - Smoking History Smoking history: Never smoked Have you smoked in the past 12 months: No Aproximately how many cigarettes per day: 0 - Alcohol/Substance Use Hx Alcohol Use: No History of Substance Use: reports: None - Social History Usual Living Arrangement: Yes: With Child ADL: Support Services History of Recent Travel: No Home Medications - Allergies Allergies/Adverse Reactions: Allergies Allergy/AdvReac Type Severity Reaction Status Date / Time No Known Allergies Allergy Verified 03/16/18 11:51 - Home Medications Home Medications: Ambulatory Orders Levothyroxine [Synthroid -] 50 mcg PO DAILY 06/21/14 Docusate Sodium [Colace -] 300 mg PO HS capsule 07/05/16 Ibuprofen [Advil -] 200 mg PO Q6H PRN tablet 12/03/17 Acetaminophen [8Hr Arthritis Pain Relief] 650 mg PO 03/16/18 Bisacodyl [Biscolax] 10 mg RC PRN PRN 03/16/18 Lorazepam [Ativan] 0.5 mg PO Q6H 03/16/18 Senna [place] Extract [Senna] 10 ml PO BID 03/16/18 Home Medications (free text): 1. folic acid 1mg daily. 2. protonix 40mg daily Family Disease History - Family Disease History Family History: Unremarkable Review of Systems Unable to obtain ROS, reason: severe dementia Physical Examination Vital Signs: Vital Signs Temperature 35.1 C L 03/16/18 13:04 Pulse Rate 77 03/16/18 13:04 Respiratory Rate 16 03/16/18 13:04 Blood Pressure 151/72 03/16/18 13:04 O2 Sat by Pulse Oximetry (%) 100 03/16/18 12:25 Constitutional: Yes: No Distress, Calm, Thin Eyes: Yes: Conjunctiva Clear, PERRL HENT: Yes: Atraumatic, Normocephalic Cardiovascular: Yes: Regular Rate and Rhythm. No: Gallop, Murmur, Rub Respiratory: Yes: Regular, CTA Bilaterally. No: Rales, Rhonchi, Wheezes Gastrointestinal: Yes: Normal Bowel Sounds, Soft. No: Distention, Tenderness Extremities: Yes: WNL Edema: No Labs: CBC, BMP 03/16/18 12:02 03/16/18 12:02 Imaging - Results Chest X-ray: Report Reviewed, Image Reviewed Cat Scan: Report Reviewed Problem List - Problems (1) Hypothermia Assessment/Plan: -patient presents with hypothermia requiring warming -while considering sepsis, patient does not present as septic and no source -continue warming -will consult ID to evaluate if need to continue empiric antibiotics -suspect cardiogenic in nature with bradycardia causing hypoperfusion Code(s): T68.XXXA - HYPOTHERMIA, INITIAL ENCOUNTER Qualifiers: Encounter type: initial encounter Qualified Code(s): T68.XXXA - Hypothermia , initial encounter (2) Syncope Assessment/Plan: -patient became unresponsive at home -found to be bradycardic and hypotensive -suspect syncopal episode secondary to bradycardia causing hypotension and underperfusion -admit to the ICU -hydrate with IVF -obtain ECHO Code(s): R55 - SYNCOPE AND COLLAPSE (3) Bradycardia Assessment/Plan: -very concerned that episode was cardiac in nature -? arrhythmia vs cardiac event -received atropine in the field -monitor in ICU for 24 hours since patient confirmed to be full code -case d/w Dr Linn who will see in consultation -check cardiac enzymes x3 Code(s): R00.1 - BRADYCARDIA, UNSPECIFIED (4) Hypotension Assessment/Plan: -hydration with IVF Code(s): I95.9 - HYPOTENSION, UNSPECIFIED (5) Lactic acid acidosis Assessment/Plan: -secondary to hypoperfusion -lower suspicion for sepsis -continue IVF Code(s): E87.2 - ACIDOSIS (6) Dementia Assessment/Plan: -stable Code(s): F03.90 - UNSPECIFIED DEMENTIA WITHOUT BEHAVIORAL DISTURBANCE (7) Hypothyroidism Assessment/Plan: -TSH normal -will check FT4 and T3 -continue levothyroxine Code(s): E03.9 - HYPOTHYROIDISM, UNSPECIFIED (8) Severe protein-calorie malnutrition Assessment/Plan: -speech consult to evaluate swallowing -dysphagia diet currently Code(s): E43 - UNSPECIFIED SEVERE PROTEIN-CALORIE MALNUTRITION Assessment/Plan -had d/w son who is HCP -currently full code but will d/w brother about possible change to DNR/DNI 62 minutes spent in critical care time with this patient
--- NOTE | 2018-03-16 15:19 | CON.CARD ---
Consult Consult Specialty:: Cardiology Referred by:: Evelina Reason for Consultation:: Bradycardia - History of Present Illness Chief Complaint: altered mental status History of Present Illness: 87F h/o dementia, HTN, COPD, recent admission in December for sepsis/cellulitis after which she was on hospice p/w altered mental status, hypotension, bradycardia. Patient's son says pt was in wheelchair, slumped over. Was hypotensive to 90s/ 60s, heart rate 40s. Reportedly was in junctional rhythm per EMS and was given 0.5 mg IV atropine, HR improved to 80s-90s. Pt was more alert after. Was on hospice for failure to thrive, however is currently full code. In the ER labs notable for K 3.4, Na 148, lactate 3.6, trop neg x 1. History from patient's sons, one at bedside one on the phone on speaker. No prior cardiac history, no events like this in the past. 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 - Alcohol/Substance Use Hx Alcohol Use: No - Smoking History Smoking history: Never smoked Have you smoked in the past 12 months: No Aproximately how many cigarettes per day: 0 Home Medications - Allergies Allergies/Adverse Reactions: Allergies Allergy/AdvReac Type Severity Reaction Status Date / Time No Known Allergies Allergy Verified 03/16/18 11:51 - Home Medications Home Medications: Ambulatory Orders Levothyroxine [Synthroid -] 50 mcg PO DAILY 06/21/14 Folic Acid 1 tablet PO DAILY 03/16/18 Pantoprazole Sodium 30 mg PO DAILY 03/16/18 Family Disease History - Family Disease History Family History: Unremarkable Review of Systems Unable to obtain ROS, reason: dementia Vital Signs: Vital Signs Temperature 95.2 F L 03/16/18 13:04 Pulse Rate 77 03/16/18 13:04 Respiratory Rate 16 03/16/18 13:04 Blood Pressure 151/72 03/16/18 13:04 O2 Sat by Pulse Oximetry (%) 100 03/16/18 12:25 Constitutional: Yes: Calm, Other (under heating blanket) Eyes: Yes: Conjunctiva Clear, EOM Intact HENT: Yes: Atraumatic, Normocephalic Neck: Yes: Supple Respiratory: Yes: Regular, Other (poor effort, not cooperative with exam, unable to auscultate posteriorly) Gastrointestinal: Yes: Normal Bowel Sounds, Soft Renal/: Yes: WNL Cardiovascular: Yes: Regular Rate and Rhythm, Other (unable to assess JVD, patient bending head forward, not cooperating with exam) Heart Sounds: Yes: S1, S2 Musculoskeletal: Yes: Other (bandages on hand, chewing L hand) Extremities: Yes: Cool Edema: No Peripheral Pulses: 1+ Left Doralis Pedis, 1+ Right Dorsalis Pedis, 2+ Left Carotid, 2+ Right Carotid Integumentary: Yes: WNL Neurological: Yes: Confusion, Lethargy Psychiatric: Yes: Agitated - Other Data Labs, Other Data: CBC, BMP 03/16/18 12:02 03/16/18 12:02 INR, PTT INR 1.04 (0.83-1.09) 03/16/18 12:02 Troponin, BNP 03/16/18 12:02 Troponin I < 0.02 Troponin, BNP 03/16/18 12:02 Troponin I < 0.02 Assessment/Plan echo 02/2018 nl LV size and function, mild conc LVH, nl RWMA, E/A reversal, RV not well visualized, mild TR, mild MAC EKG sinus rhythm, baseline artifact, nonspecific T wave changes tele: sinus 70s Alt mental status, bradycardia, hypotension - echo unremarkable - trop neg x 1, trend troponins - EKG unchanged from prior - tele shows stable rate now - patient is hypothermic (reportedly was 92 deg rectal temp on arrival, now improving under heat blanket) which could contribute to bradycardia. patient unable to give further history, unclear etiology for bradycardia. may be related to arrhythmia, vasovagal, or other underlying process. undergoing workup per primary team, on broad spectrum abx currently - TSH wnl - monitoring on tele, admitted to ICU HTN - admitted with hypotension - now wt elevated BPs, has been off quinapril for several months per son - monitor given hypotension earlier today Hypothyroidism - TSH stable, cont synthroid Dementia - patient unable to give history, not cooperative with exam - was on hospice, per sons plans to dc hospice - manage per primary team
[2018-03-16] MEDS ORDERED: POTASSIUM CHLORIDE ORAL LIQUID 20 MEQ/15 ML PO ONE (15:45)
--- NOTE | 2018-03-16 15:53 | CONSULT ---
Consultation: REQUESTING PROVIDER: CONSULT REQUEST: We have been asked to medically evaluate this patient for symptomatic bradycardia. HISTORY OF PRESENT ILLNESS: Patient is a 87 y/o female with a history of dementia, HTN, COPD, and constipation who presents to the ED for symptomatic bradycardia. History per patients son. Patient was home with her son and aid when they were about to bring her to a doctors appointment, but she was unresponsive. Patients pulse was in the 40's in the ambulance and she was given one dose of atropine. Son notes she had some chills and a cough recently but was not bringing up any sputum. She is typically bed bound and non verbal. She has not been sick recently and her last hospital visit was in November for cellulitis and patient was placed on hospice. Patient eats a pureed diet fed by son and home health aid. He reports she does not have any sores but she has a "heat rash" on her back. She urinates on her own into a diaper. Son reports he did not take a temperature recently. Patient has not been having any diarrhea, nausea, or vomiting. REVIEW OF SYSTEMS: CONSTITUTIONAL: chills Absent: fever, diaphoresis, generalized weakness, malaise, loss of appetite, weight change HEENT: Absent: rhinorrhea, nasal congestion, throat pain, throat swelling, difficulty swallowing, mouth swelling, ear pain, eye pain, visual changes CARDIOVASCULAR: Absent: chest pain, syncope, palpitations, irregular heart rate, lightheadedness , peripheral edema RESPIRATORY: cough Absent: shortness of breath, dyspnea with exertion, orthopnea, wheezing, stridor , hemoptysis GASTROINTESTINAL: Absent: abdominal pain, abdominal distension, nausea, vomiting, diarrhea, constipation, melena, hematochezia GENITOURINARY: Absent: dysuria, frequency, urgency, hesitancy, hematuria, flank pain, genital pain MUSCULOSKELETAL: Absent: myalgia, arthralgia, joint swelling, back pain, neck pain SKIN: Absent: rash, itching, pallor HEMATOLOGIC/IMMUNOLOGIC: Absent: easy bleeding, easy bruising, lymphadenopathy, frequent infections ENDOCRINE: Absent: unexplained weight gain, unexplained weight loss, heat intolerance, cold intolerance NEUROLOGIC: Absent: headache, focal weakness or paresthesias, dizziness, unsteady gait, seizure, mental status changes, bladder or bowel incontinence PSYCHIATRIC: Absent: anxiety, depression, suicidal or homicidal ideation, hallucinations. PHYSICAL EXAMINATION Vital Signs Temperature 95.2 F L 03/16/18 13:04 Pulse Rate 77 03/16/18 13:04 Respiratory Rate 16 03/16/18 13:04 Blood Pressure 151/72 03/16/18 13:04 O2 Sat by Pulse Oximetry (%) 100 03/16/18 12:25 GENERAL: Awake and alert, nonverbal, cachectic HEAD: Normal with no signs of trauma. EYES: extraocular movements intact EARS, NOSE, THROAT: Moist mucous membranes. LUNGS: Breath sounds equal, clear to auscultation bilaterally. No accessory muscle use. HEART: Regular rate and rhythm, normal S1 and S2 without murmur, rub or gallop. ABDOMEN: mildly rigid, nontender, not distended, normoactive bowel sounds, no guarding, LOWER EXTREMITIES: warm, well-perfused. No calf tenderness. No peripheral edema. SKIN: papular rash diffuse over back, papules erythematous CBCD WBC 4.6 K/mm3 (4.0-10.0) 03/16/18 12:02 RBC 4.46 M/mm3 (3.60-5.2) 03/16/18 12:02 Hgb 12.3 GM/dL (10.7-15.3) 03/16/18 12:02 Hct 38.5 % (32.4-45.2) D 03/16/18 12:02 MCV 86.4 fl (80-96) 03/16/18 12:02 MCHC 31.9 g/dl (32.0-36.0) L 03/16/18 12:02 RDW 15.5 % (11.6-15.6) 03/16/18 12:02 Plt Count 94 K/MM3 (134-434) L D 03/16/18 12:02 MPV 10.9 fl (7.5-11.1) D 03/16/18 12:02 CMP Sodium 148 mmol/L (136-145) H 03/16/18 12:02 Potassium 3.4 mmol/L (3.5-5.1) L 03/16/18 12:02 Chloride 113 mmol/L (98-107) H 03/16/18 12:02 Carbon Dioxide 26 mmol/L (21-32) 03/16/18 12:02 Anion Gap 9 MMOL/L (8-16) 03/16/18 12:02 BUN 21 mg/dL (7-18) H 03/16/18 12:02 Creatinine 0.6 mg/dL (0.55-1.3) 03/16/18 12:02 Creat Clearance w eGFR > 60 (>60) 03/16/18 12:02 Calcium 8.4 mg/dL (8.5-10.1) L 03/16/18 12:02 Total Bilirubin 0.3 mg/dL (0.2-1.0) 03/16/18 12:02 AST 17 U/L (15-37) 03/16/18 12:02 ALT 13 U/L (13-61) 03/16/18 12:02 Alkaline Phosphatase 55 U/L (45-117) 03/16/18 12:02 Total Protein 5.8 g/dl (6.4-8.2) L 03/16/18 12:02 Albumin 3.1 g/dl (3.4-5.0) L 03/16/18 12:02 Active Medications Acetaminophen (Tylenol -) 650 mg PO Q4H PRN PRN Reason: FEVER Albuterol Sulfate (Ventolin 0.083% Nebulizer Soln -) 1 amp NEB Q8H PRN PRN Reason: SHORT OF BREATH/WHEEZING Chlorhexidine Gluconate (Hibiclens For Decolonization -) 1 applic TP HS GLORY Chlorhexidine Gluconate (Hibiclens For Decolonization -) 1 applic TP HS GLORY Heparin Sodium (Porcine) (Heparin -) 5,000 unit SQ BID GLORY Lactated Ringer's (Lactated Ringers Solution) 1,000 ml in 1,000 mls @ 75 mls/ hr IV ASDIR GLORY Levothyroxine Sodium (Synthroid -) 50 mcg PO DAILY GLORY Mupirocin (Bactroban Ointment (For Decolonization) -) 1 applic NS BID GLORY Stop: 03/21/18 21:59 Mupirocin (Bactroban Ointment (For Decolonization) -) 1 applic NS BID GLORY Stop: 03/21/18 21:59 Pantoprazole Sodium (Protonix -) 40 mg PO DAILY [facility] ASSESSMENT/PLAN: Patient is a 87 y/o female with a history of dementia, HTN, COPD, and constipation who is admitted for symptomatic bradycardia. Patient on last day of hospice today, supposed to go to Dr. Nguyen's office to discuss further care. Neuro Dementia - at patients baseline per son - patient nonverbal - rule out seizure, f/u prolactin level due to elevated lactic acid and no current obvious source of infection - Head CT: no evidence of acute intracranial hemorrhage, edema, midline shift , no evidence of acute territorial ischemic changes Cardio Symptomatic bradycardia 2/2 to possible sepsis - patient given atropine with improved HR to 90's - continue to monitor - blood pressure stable - f/u echo, f/u repeat ekg in morning - EKG showed no acute changes, 1st degree av block - no signs of 2nd or 3rd degree av blocks - TSH within normal limitis - f/u Dr. Linn - f/u cardiac profile Pulm COPD - nebulizer treatments prn q6h - aspiration precautions, elevate HOB - oxygenation on room air good, keep > 95% - CXR: no evidence of active pulmonary disease - no home medications for COPD Infectious disease Rule out sepsis 2/2 to possible aspiration PNA vs unspecified source - Patient does not meet sepsis criteria, borderline low white count f/u daily cbc - Given one dose Zosyn and Vanc in ED - continue to trend LA, no white count - f/u blood cultures, urine cultures - lactic acid 3.6, repeat 2.8 - monitor I's & O's - f/u Dr. Ha - hypothermic on admission, currently on warming blanket - will emperically treat with Zosyn and deescalate, approved via ID - treating emperically due to lactica acidosis, thrombocytopenia, hypothermia fungal rash on back - apply nystatin to back Hematology Thrombocytopenia 2/2 to r/o sepsis - 90,000 - f/u daily CBC DVT ppx - heparin 5,000 units BID GI ppx - pantoprazole 40 mg po Endocrine Hypothyroidsim - Continue levothyroxine 50 mcg - TSH within normal limits, f/u T4 and T3 FEN - repleted K - LR @ 100 - patient full code - NPO , f/u speech and swallow eval - F/u Dr. Sandoval Dispo: We will continue to follow the patient. Thank you for this consultative opportunity. Visit type - Emergency Visit Emergency Visit: No - New Patient This patient is new to me today: Yes Date on this admission: 03/16/18 - Critical Care Critical Care patient: Yes Total Critical Care Time (in minutes): 40 Critical Care Statement: The care of this patient involved high complexity decision making to prevent further life threatening deterioration of the patient 's condition and/or to evaluate & treat vital organ system(s) failure or risk of failure.
[2018-03-16] MEDS ORDERED: POTASSIUM CHLORIDE ORAL LIQUID 20 MEQ/15 ML ONE (15:59)
--- NOTE | 2018-03-16 16:26 | ECHO ---
Name: DALTON FARIAS Exam:Adult Echocardiogram Study Date: 03/16/2018 03:23 PM Age: 87 yrs Reason For Study: Bradycardia Height: 61 in Weight: 90 lb BSA: 1.3 m2 MMode/2D Measurements & Calculations IVSd: 0.96 cm Ao root diam: 3.2 cm LVIDd: 4.6 cm LA dimension: 3.1 cm LVIDs: 2.4 cm LVPWd: 0.97 cm IVSs: 1.1 cm LVPWs: 1.1 cm EDV(Teich): 97.7 ml ESV(Teich): 19.8 ml Doppler Measurements & Calculations MV E max al: 57.1 cm/sec Ao V2 max: 153.1 cm/sec MV A max al: 92.1 cm/sec Ao max P.4 mmHg MV E/A: 0.62 Ao V2 mean: 102.3 cm/sec Ao mean P.8 mmHg Ao V2 VTI: 31.3 cm TR max al: 229.1 cm/sec PI end-d al: 108.6 cm/sec TR max P.0 mmHg Med Peak E' Al: 5.3 cm/sec Med E/e': 10.8 Lat Peak E' Al: 5.0 cm/sec Lat E/e': 11.5 Procedure A complete two-dimensional transthoracic echocardiogram was performed (2D, M-mode, Doppler and color flow Doppler). Left Ventricle The left ventricle is normal in size. There is mild concentric left ventricular hypertrophy. Left agustin tricular systolic function is normal. Ejection Fraction = 60-65%. E/A reversal with TDI revealing impaired rel axation and normal filling pressure (med E' 5.4, E/E' 11). No regional wall motion abnormalities noted. Right Ventricle The right ventricle is not well visualized. Atria The left atrial size is normal. Right atrium not well visualized. Mitral Valve There is mild mitral annular calcification. There is no mitral regurgitation noted. Tricuspid Valve The tricuspid valve is normal in structure and function. There is mild tricuspid regurgitation. Right ventricular systolic pressure is normal. Aortic Valve The aortic valve is normal in structure and function. No aortic regurgitation is present. Pulmonic Valve The pulmonic valve is not well visualized. Mild pulmonic valvular regurgitation. Great Vessels The aortic root is normal size. Pericardium/Pleura There is no pericardial effusion. Interpretation Summary The left ventricle is normal in size. There is mild concentric left ventricular hypertrophy. Left ventricular systolic function is normal. No regional wall motion abnormalities noted. Ejection Fraction = 60-65%. E/A reversal with TDI revealing impaired relaxation and normal filling pressure (med E' 5.4, E/E' 11) The right ventricle is not well visualized. The left atrial size is normal. There is mild mitral annular calcification. There is mild tricuspid regurgitation. Mild pulmonic valvular regurgitation. There is no pericardial effusion. Previous study is not available for comparison Sergey Sheets MD 03/16/2018 04:25 PM
[2018-03-16 19:41] VITALS: BMI 17.4
[2018-03-16] MEDS ORDERED: PIPERACILLIN/TAZOB 3.375 GM 3.375 GM in DEXTROSE 5%-WATER - 50 ML IVPB SCH (20:00)
[2018-03-16] MEDS ORDERED: PIPERACILLIN/TAZOBACTAM 3.375 GM VIAL IVPB ONE (20:36)
[2018-03-16] MEDS ORDERED: DEXTROSE 5%-WATER - 50 ML IVPB ONE (20:36)
[2018-03-16] MEDS: PIPERACILLIN/TAZOB 3.375 GM 3.375 GM in DEXTROSE 5%-WATER - 50 ML IVPB SCH (20:41)
[2018-03-16] MEDS: HEPARIN NA (PORCINE) 5,000 UNITS/ML 1ML VIAL SQ SCH (20:59)
[2018-03-16] MEDS: MUPIROCIN 2% TOPICAL OINTMENT FOR DECOLONIZATION NS SCH (21:00)
[2018-03-16] MEDS ORDERED: MUPIROCIN 2% TOPICAL OINTMENT FOR DECOLONIZATION NS SCH (22:00)
[2018-03-16] MEDS ORDERED: CHLORHEXIDINE GLUCONATE 4% CLEANSER FOR DECOLONIZATION TP SCH ×2 (22:00)
[2018-03-16] MEDS: NYSTATIN 100,000 UNIT/GM TOPICAL CREAM 15 GM TUBE TP SCH (23:00)
[2018-03-17] MEDS ORDERED: PIPERACILLIN/TAZOBACTAM 3.375 GM VIAL IVPB ONE ×2 (03:23→10:07)
[2018-03-17] MEDS ORDERED: DEXTROSE 5%-WATER - 50 ML IVPB ONE ×2 (03:23→10:07)
[2018-03-17] MEDS: PIPERACILLIN/TAZOB 3.375 GM 3.375 GM in DEXTROSE 5%-WATER - 50 ML IVPB SCH ×2 (03:25→10:12)
[2018-03-17] MEDS ORDERED: PT OWN MED DRAWER 7, Y5N ONE (03:30)
[2018-03-17 06:13] LABS: HEMATOCRIT 36.9 % (32.4-45.2); HEMOGLOBIN 11.8 GM/dL (10.7-15.3); MCH 27.4 pg (25.7-33.7); MCHC 31.8 g/dl (32.0-36.0); MEAN CELL VOLUME 86.2 fl (80-96); MEAN PLT VOLUME 11.4 fl (7.5-11.1); PLATELET COUNT 88 K/MM3 (134-434); RBC 4.28 M/mm3 (3.60-5.2); RDW 15.3 % (11.6-15.6)
[2018-03-17 06:34] LABS: ALBUMIN 2.9 g/dl (3.4-5.0); ANION GAP 7 MMOL/L (8-16); BILIRUBIN,TOTAL 0.4 mg/dL (0.2-1); BLOOD UREA NITROGEN 12 mg/dL (7-18); CALCIUM 8.3 mg/dL (8.5-10.1); CHLORIDE 114 mmol/L (98-107); CO2 26 mmol/L (21-32); CREATININE 0.5 mg/dL (0.55-1.3); GLUCOSE,RANDOM 70 mg/dL (74-106); MAGNESIUM 1.8 mg/dL (1.8-2.4); PHOSPHOROUS 3.1 mg/dL (2.5-4.9); POTASSIUM 3.6 mmol/L (3.5-5.1); SGOT/AST 16 U/L (15-37); SGPT/ALT 14 U/L (13-61); SODIUM 147 mmol/L (136-145)
[2018-03-17 06:35] LABS: ALK PHOS 58 U/L (45-117); TOT PROT 5.5 g/dl (6.4-8.2)
[2018-03-17 06:51] LABS: INR 1.07 (0.83-1.09); PROTHROMBIN TIME (PATIENT) 12.1 SEC (9.7-13.0)
[2018-03-17] MEDS ORDERED: LEVOTHYROXINE NA 50 MCG TABLET (FP) PO SCH (07:00)
[2018-03-17] MEDS ORDERED: PANTOPRAZOLE 40 MG TABLET (FP) PO SCH (10:00)
--- NOTE | 2018-03-17 10:06 | PN ---
Progress Note (short form) - Note Progress Note: cc: alt mental status s: nonverbal, unable to give history Current Medications Acetaminophen (Tylenol -) 650 mg PO Q4H PRN PRN Reason: FEVER Albuterol Sulfate (Ventolin 0.083% Nebulizer Soln -) 1 amp NEB Q4H PRN PRN Reason: SHORT OF BREATH/WHEEZING Chlorhexidine Gluconate (Hibiclens For Decolonization -) 1 applic TP HS [facility] Last Admin: 03/16/18 21:01 Dose: 1 applic Heparin Sodium (Porcine) (Heparin -) 5,000 unit SQ BID [facility] Last Admin: 03/16/18 20:59 Dose: 5,000 unit Piperacillin Sod/Tazobactam (Sod 3.375 gm/ Dextrose) 50 mls @ 100 mls/hr IVPB Q6H-IV [facility]; Protocol Last Admin: 03/17/18 03:25 Dose: 100 mls/hr Levothyroxine Sodium (Synthroid -) 50 mcg PO 0700 [facility] Last Admin: 03/17/18 06:13 Dose: Not Given Mupirocin (Bactroban Ointment (For Decolonization) -) 1 applic NS BID [facility] Stop: 03/21/18 21:59 Last Admin: 03/16/18 21:00 Dose: 1 applic Nystatin (Mycostatin Cream -) 1 applic TP BID [facility] Last Admin: 03/16/18 23:00 Dose: 1 applic Pantoprazole Sodium (Protonix -) 40 mg PO DAILY [facility] Vital Signs Period Temp Pulse Resp BP Sys/Chinchilla Pulse Ox Last 24 Hr 95.2 F-98.5 F 46-87 04-16 119-168/72-107 95-100 Constitutional: Yes: Calm, awake, not answering questions appropriately Eyes: Yes: Conjunctiva Clear, EOM Intact HENT: Yes: Atraumatic, Normocephalic Neck: Yes: Supple Respiratory: Yes: Regular, Other (poor effort, not cooperative with exam, unable to auscultate posteriorly) Gastrointestinal: Yes: Normal Bowel Sounds, Soft Renal/: Yes: WNL Cardiovascular: Yes: Regular Rate and Rhythm, Other (unable to assess JVD, not cooperating with exam) Heart Sounds: Yes: S1, S2 Musculoskeletal: Yes: Other (bandages on hand, chewing L hand) Extremities: Yes: Cool Edema: No Peripheral Pulses: 1+ Left Doralis Pedis, 1+ Right Dorsalis Pedis, 2+ Left Carotid, 2+ Right Carotid Integumentary: Yes: WNL Neurological: Yes: Confusion, Lethargy Psychiatric: Yes: Agitated Assessment/Plan echo 02/2018 nl LV size and function, mild conc LVH, nl RWMA, E/A reversal, RV not well visualized, mild TR, mild MAC EKG sinus rhythm, baseline artifact, nonspecific T wave changes tele: sinus emily 40s-50s Alt mental status, bradycardia, hypotension - echo unremarkable - trop <0.02->0.04->0.03, not c/w ACS - EKG unchanged from prior - patient was hypothermic (reportedly was 92 deg rectal temp on arrival, now improving under heat blanket) which could contribute to bradycardia. patient unable to give further history, unclear etiology for bradycardia. may be related to arrhythmia, vasovagal, or other underlying process. undergoing workup per primary team, on broad spectrum abx currently - patient with sinus bradycardia overnight while sleeping with elevated BPs - TSH wnl - monitoring on tele HTN - admitted with hypotension - now wth elevated BPs, has been off quinapril for several months per son - monitor given hypotension Hypothyroidism - TSH stable, cont synthroid Dementia - patient unable to give history, not cooperative with exam - was on hospice, discussed with Dr. Nguyen, re-evaluating for hospice services given multiple recent admissions - manage per primary team
[2018-03-17] MEDS: HEPARIN NA (PORCINE) 5,000 UNITS/ML 1ML VIAL SQ SCH ×2 (10:13→21:33)
[2018-03-17] MEDS: MUPIROCIN 2% TOPICAL OINTMENT FOR DECOLONIZATION NS SCH (10:13)
--- NOTE | 2018-03-17 10:49 | PN ---
Progress Note (short form) - Note Progress Note: Patient well known to me . Has been on Hospice but with no active decline in the recent months and with her tolerating her diet (albumin 3.1 on admission) they are tentatively not going to renew her benefit as of . The son Jaspla who is her caregiver and has done an admirable job taking care of her with the assist of her aide from hospice has not revoked the hospice himself. The son has wanted to take her to [place] where other family members live and hospice wanted to help arrange that but the difficulties involved would be difficult to overcome. The hospice team wanted the patient to be evaluated in my office before the March renewal deadline and I had resisted because of the difficulties with the transport by ambulance and I thought the hospice center medical and lab director and not the MD of record was required for a face to face visit before a decision on terminating the benefit. In any case while awaiting the transport to my office yesterday she was sitting for a prolonged period over 1 hour and slumped over and became hypotensive. When brought to the ER she required IV fluids and was noted to be acidotic. This may have been a reflection of the ischemia during her hypotensive period because so far the C/S are negative and her cardiac enzymes and Echocardiogram show no acute changes. She has a degree of thrombocytopenia but thyroid studies and renal lab now normal. B12 and folate ordered.She is also bradycardic. The patient has been under the care of [facility] and possibly with her second admission in 3 months the decision to D/C hospice at home may need to be revisited.
--- NOTE | 2018-03-17 11:40 | CONSULT ---
Admitting History and Physical - Primary Care Physician PCP: Iain Hoyt - Admission History of Present Illness: Chart reviewed/Pt examined. Known to me from 11/2017, did well with puree/nectar thick liquid with compensatory strategies- Pt accepted more for family than staff. Added sweetener to food. Magic cup/ Ensure Compact b/n meals. 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 Cardiovascular: Yes: HTN ...: No Endocrine: Yes: Hypothyroidism - Past Surgical History Past Surgical History: Yes: None - Smoking History Smoking history: Never smoked Have you smoked in the past 12 months: No Aproximately how many cigarettes per day: 0 - Alcohol/Substance Use Hx Alcohol Use: No History of Substance Use: reports: None - Social History ADL: Support Services History of Recent Travel: No History - Admission Reason For Visit: SEPSIS - Diagnostics X-ray: Report Reviewed CT Scan: Report Reviewed - General Mental Status: Awake and Alert, Confused Attention: Distractible, Mild Impairment Ability to Follow Directions: Poor Head/Neck Control: Fair - Hearing Hearing: Normal Hearing Aide: No With Patient: No Speech Evaluation - Communication Primary Language: POLISH Communication: Yes: Non-Communicable (jargon with some appropriate social speech ,) - Speech Production Able to Make Needs Known: Yes: Severely Impaired Intelligibility: Yes: Severely Impaired (precise but jargon) - Speech Characteristics Voice Loudness: Normal Voice Pitch: Yes: Normal Voice Phonatory-based Quality: Yes: Normal Speech Pattern: Impaired Speech Clarity: < 25% Nasal Resonance: Normal Articulation: Yes: Precise - Language/Auditory Comprehension Observation: Able to respond to yes/no queries: No, Comprehends Conversational Speech: No - Language/Verbal Expression Aphasia: Yes: Paraphrasic Errors, Neologisms Able to Respond to Simple Queries: Yes: Severely Impaired Able to Communicate Wants and Needs: Yes: Severely Impaired Functional Communication Status: Yes: Severely Impaired - Memory/Perception custodial Memory: Yes: Severely Impaired Short Term Memory: Yes: Severely Impaired - Swallow Evaluation/Bedside Assessment Current Nutritional Intake: NPO Oral Secretions: Yes: WFL Dentition: Yes: Edentulous Facial Symmetry at Rest: Symmetrical Facial Symmetry on Retraction: Symmetrical Lingual Speed of Movement: Normal Lingual Movement Strgth Against Opposition: Normal Lingual Movement Characteristics: Normal Laryngeal Movement: Able to Palpate Rate of Intake: Slow/Holding Oral Prep Time: WFL A-P Transit: WFL Pocketing: None Coughing/Throat Clear: No Change in Voice: No Recommendations - Speech Evaluation, Impression/Plan Impression: Baseline Jargon. Swallow is brisk.In past, pt accepted more for family than staff. - Dysphagia Impressions/Plan Dysphagia Impressions: Minimal Impairment *Silent aspiration: cannot be R/O at bedside Dysphagia Treatment Plan: Small Bites, Chin Tuck/Down, Facilitative Feeding, Safe Rate, 1/2 tsp. at a time, Elevate HOB during feed, Other (Add sweetener to food. Magic cup/Ensure Compact b/n meals.) - Recommendations Diet Consistency: Dysphagia Pureed, Other (add sweetener, maple syrup.) Medication Administration: Crushed with applesauce Liquids: Thin Liquids Supplement: Ensure, Magic Cup, Ensure Pudding
[2018-03-17] MEDS ORDERED: SODIUM CHLORIDE 0.45%/POT 20 MEQ/1,000 ML INFUS.BAG IV SCH (11:45)
--- NOTE | 2018-03-17 12:14 | PN ---
Teaching Attending Note Name of Resident: Romy Dominguez ATTENDING PHYSICIAN STATEMENT I saw and evaluated the patient. I reviewed the resident's note and discussed the case with the resident. I agree with the resident's findings and plan as documented. SUBJECTIVE: Pt seen and examined in the ICU. Remains in sinus bradycardia but hemodynamically stable. No events overnight. OBJECTIVE: Vital Signs Period Temp Pulse Resp BP Sys/Chinchilla Pulse Ox Last 24 Hr 95.2 F-98.5 F 46-83 10-18 119-168/72-107 95-100 Intake & Output 03/14/18 03/15/18 03/16/18 03/17/18 23:59 23:59 23:59 23:59 Intake Total 50 Output Total 1150 400 Balance -1150 -350 Weight 41.9 kg Gen: NAD at rest Heart: bradycardic, regular Lung: decreased breath sounds at the bases Abd: soft, nontender Ext: no edema CBC, BMP 03/17/18 05:30 03/17/18 05:30 Active Medications Acetaminophen (Tylenol -) 650 mg PO Q4H PRN PRN Reason: FEVER Albuterol Sulfate (Ventolin 0.083% Nebulizer Soln -) 1 amp NEB Q4H PRN PRN Reason: SHORT OF BREATH/WHEEZING Chlorhexidine Gluconate (Hibiclens For Decolonization -) 1 applic TP HS [facility] Last Admin: 03/16/18 21:01 Dose: 1 applic Heparin Sodium (Porcine) (Heparin -) 5,000 unit SQ BID [facility] Last Admin: 03/17/18 10:13 Dose: 5,000 unit Piperacillin Sod/Tazobactam (Sod 3.375 gm/ Dextrose) 50 mls @ 100 mls/hr IVPB Q6H-IV [facility]; Protocol Last Admin: 03/17/18 10:12 Dose: 100 mls/hr Potassium Chloride/Sodium Chloride (1/2ns+20meq Kcl) 20 meq in 1,000 mls @ 75 mls/hr IV ASDIR [facility] Stop: 03/19/18 01:04 Last Admin: 03/17/18 12:08 Dose: 75 mls/hr Levothyroxine Sodium (Synthroid -) 50 mcg PO 0700 [facility] Last Admin: 03/17/18 06:13 Dose: Not Given Mupirocin (Bactroban Ointment (For Decolonization) -) 1 applic NS BID [facility] Stop: 03/21/18 21:59 Last Admin: 03/17/18 10:13 Dose: 1 applic Nystatin (Mycostatin Cream -) 1 applic TP BID [facility] Last Admin: 03/16/18 23:00 Dose: 1 applic Pantoprazole Sodium (Protonix -) 40 mg PO DAILY [facility] Last Admin: 03/17/18 10:14 Dose: 40 mg ASSESSMENT AND PLAN: Sinus Bradycardia Hypothermia Thrombocytopenia HTN Hypothyroidism Dementia - on empiric antibiotics, less likely infectious etiology - f/u cultures - check cortisol level - monitor lytes - DVT prophylaxis - can monitor on telemetry
--- NOTE | 2018-03-17 12:17 | PN ---
Progress Note (short form) - Note Progress Note: ID Consult dictated S/P syncopal episode Hypothermia, thrombocytopenia R/O sepsis ? source OBS Pending sepsis workup empiric ceftriaxone + stat dose vancomycin Critical care time 35min
[2018-03-17] MEDS ORDERED: VANCOMYCIN 1,000 MG in DEXTROSE 5%-WATER - 250 ML IVPB ONE (12:18)
--- NOTE | 2018-03-17 13:14 | CONS ---
DATE OF CONSULTATION: DATE OF DICTATION: 03/17/2018 The patient is an 87-year-old female evaluated for possible sepsis. History was obtained from the chart, as she suffers from dementia and is unable to give a history. The patient resides at home. She was on home hospice and was to come off hospice. She was at home, sitting in the wheelchair, when she suddenly slumped over and lost consciousness. She was unresponsive and was unable to be aroused. She was cold to touch. EMS was summoned. She was brought by ambulance to the emergency room. EMS reports that patient was hypotensive with a blood pressure of 90/60, and bradycardic, with a heart rate in the 40s. She was given atropine. In the emergency room, CAT scan of the head was performed and was negative for acute infarct or bleed. She was noted to be hypotensive, with a temperature of 95.2. Cultures were obtained and she was empirically treated with vancomycin and Zosyn. At the present time, she is awake and verbalizing; however, she is confused. She offers no complaints. She is in no acute distress. No reports of recent febrile illness. Her last hospitalization was in late October, early November of this year. Previous urine cultures have grown a pepe-sensitive E coli. Past medical history positive for dementia, hypertension, COPD. No known allergies. MEDICATIONS: Synthroid, Colace, Advil, Ativan. PAST SURGICAL HISTORY: Status post left inguinal hernia repair. SOCIAL HISTORY: She lives at home with family members. She is a nonsmoker, nondrinker. She suffers from dementia and is dependent in activities of daily living. SYSTEMS REVIEW: Neurologic: Positive for dementia. Cardiac: Negative chest pain or palpitations. Respiratory: Negative cough or sputum production. Gastrointestinal: Negative vomiting or diarrhea. Genitourinary: Negative for urinary tract infection. LABORATORY DATA: White count 6.0, hematocrit 36.9, platelet count 88,000. Platelet count in November was 384. BUN 12, creatinine 0.5. Urinalysis negative. Chest x-ray negative for acute infiltrate. Blood cultures are pending. PHYSICAL EXAMINATION: General: She is awake, however, she is confused. She is in no acute distress. Breathing is non-labored. Vital Signs: Temperature 97.6. Blood pressure 150/92. Pulse 55, regular. Respirations 17 per minute. Eyes: Sclerae anicteric. Heart Sounds: Bradycardic, S1, S2. No loud murmur. Lungs: Grossly clear. Poor inspiratory effort. Abdomen: Soft. No tenderness elicited. No mass, rebound or rigidity. Extremities: Negative for edema. Skin: No sacral or heel decubitus ulcers noted. IMPRESSION: 1. Status post syncopal episode. 2. Hypothermia, thrombocytopenia, possible sepsis, unclear source. 3. Dementia. Pending sepsis workup, advise empiric antibiotic coverage with ceftriaxone 2 g IV piggyback every 24 hours, stat dose vancomycin. Continue IV fluid hydration and supportive measures. Monitor platelet count. Will follow. CRITICAL CARE TIME: 35 minutes. Thank you for the kind referral. LINDA RIDLEY M.D. [id number]
[2018-03-17] MEDS ORDERED: DEXTROSE 5%-WATER 100 ML IVPB ONE (13:34)
--- NOTE | 2018-03-17 13:37 | PN ---
Progress Note, Physician Chief Complaint: Unable to obtain - Current Medication List Current Medications: Active Medications Acetaminophen (Tylenol -) 650 mg PO Q4H PRN PRN Reason: FEVER Albuterol Sulfate (Ventolin 0.083% Nebulizer Soln -) 1 amp NEB Q4H PRN PRN Reason: SHORT OF BREATH/WHEEZING Chlorhexidine Gluconate (Hibiclens For Decolonization -) 1 applic TP HS [facility] Last Admin: 03/16/18 21:01 Dose: 1 applic Heparin Sodium (Porcine) (Heparin -) 5,000 unit SQ BID [facility] Last Admin: 03/17/18 10:13 Dose: 5,000 unit Potassium Chloride/Sodium Chloride (1/2ns+20meq Kcl) 20 meq in 1,000 mls @ 75 mls/hr IV ASDIR [facility] Stop: 03/19/18 01:04 Last Admin: 03/17/18 12:08 Dose: 75 mls/hr Ceftriaxone Sodium 2 gm/ (Dextrose) 100 mls @ 100 mls/hr IVPB DAILY [facility]; Protocol Vancomycin HCl 1,000 mg/ (Dextrose) 250 mls @ 166.667 mls/hr IVPB ONCE ONE; Protocol Stop: 03/17/18 13:47 Levothyroxine Sodium (Synthroid -) 50 mcg PO 0700 [facility] Last Admin: 03/17/18 06:13 Dose: Not Given Mupirocin (Bactroban Ointment (For Decolonization) -) 1 applic NS BID [facility] Stop: 03/21/18 21:59 Last Admin: 03/17/18 10:13 Dose: 1 applic Nystatin (Mycostatin Cream -) 1 applic TP BID [facility] Last Admin: 03/16/18 23:00 Dose: 1 applic Pantoprazole Sodium (Protonix -) 40 mg PO DAILY [facility] Last Admin: 03/17/18 10:14 Dose: 40 mg - Objective Vital Signs: Vital Signs Temperature 36.4 C 03/17/18 10:00 Pulse Rate 54 L 03/17/18 12:00 Respiratory Rate 14 03/17/18 12:00 Blood Pressure 136/73 03/17/18 12:00 O2 Sat by Pulse Oximetry (%) 95 03/17/18 09:00 Constitutional: Yes: No Distress, Calm, Thin Cardiovascular: Yes: Bradycardia. No: Gallop, Murmur, Rub Respiratory: Yes: Regular, CTA Bilaterally. No: Rales, Rhonchi, Wheezes Gastrointestinal: Yes: Normal Bowel Sounds, Soft. No: Distention, Tenderness Extremities: Yes: WNL Edema: No Labs: CBC, BMP 03/17/18 05:30 03/17/18 05:30 INR, PTT INR 1.07 (0.83-1.09) 03/17/18 05:30 Problem List - Problems (1) Hypothermia Code(s): T68.XXXA - HYPOTHERMIA, INITIAL ENCOUNTER Qualifiers: Encounter type: initial encounter Qualified Code(s): T68.XXXA - Hypothermia , initial encounter (2) Syncope Code(s): R55 - SYNCOPE AND COLLAPSE (3) Bradycardia Code(s): R00.1 - BRADYCARDIA, UNSPECIFIED (4) Hypotension Code(s): I95.9 - HYPOTENSION, UNSPECIFIED (5) Lactic acid acidosis Code(s): E87.2 - ACIDOSIS (6) Dementia Code(s): F03.90 - UNSPECIFIED DEMENTIA WITHOUT BEHAVIORAL DISTURBANCE (7) Hypothyroidism Code(s): E03.9 - HYPOTHYROIDISM, UNSPECIFIED (8) Severe protein-calorie malnutrition Code(s): E43 - UNSPECIFIED SEVERE PROTEIN-CALORIE MALNUTRITION Assessment/Plan (1) Hypothermia Assessment/Plan: -resolved -unclear of source but suspect secondary to hypoperfusion from hypotension and bradycardia -monitor -continue empiric antibiotics per ID Code(s): T68.XXXA - HYPOTHERMIA, INITIAL ENCOUNTER Qualifiers: Encounter type: initial encounter Qualified Code(s): T68.XXXA - Hypothermia , initial encounter (2) Syncope Assessment/Plan: -case d/w cardiology -ECHO reviewed -continue IVF currently Code(s): R55 - SYNCOPE AND COLLAPSE (3) Bradycardia Assessment/Plan: -still bradycardic on exam but in the 50s -lowest was 40s overnight -continue telemetry monitoring Code(s): R00.1 - BRADYCARDIA, UNSPECIFIED (4) Hypotension Assessment/Plan -improved with IVF -continue currently Code(s): I95.9 - HYPOTENSION, UNSPECIFIED (5) Lactic acid acidosis Assessment/Plan: -continue IVF and antibiotics Code(s): E87.2 - ACIDOSIS (6) Dementia Assessment/Plan: -stable Code(s): F03.90 - UNSPECIFIED DEMENTIA WITHOUT BEHAVIORAL DISTURBANCE (7) Hypothyroidism Assessment/Plan: -continue synthroid Code(s): E03.9 - HYPOTHYROIDISM, UNSPECIFIED (8) Severe protein-calorie malnutrition Assessment/Plan: -appreciate speech therapy assistance -dysphagia pureed diet Code(s): E43 - UNSPECIFIED SEVERE PROTEIN-CALORIE MALNUTRITION
[2018-03-17] MEDS: CEFTRIAXONE 2 GM in DEXTROSE 5%-WATER 100 ML IVPB SCH (13:39)
--- NOTE | 2018-03-17 14:54 | PN ---
Physical Exam: SUBJECTIVE: Patient is a 87 y/o female with a history of dementia, HTN, COPD, and constipation who presents to the ED for symptomatic bradycardia. patient bradycardic overnight. Patient at baseline, no acute events. OBJECTIVE: Vital Signs Temperature 97.7 F 03/17/18 14:00 Pulse Rate 62 03/17/18 14:00 Respiratory Rate 11 L 03/17/18 14:00 Blood Pressure 145/67 03/17/18 14:00 O2 Sat by Pulse Oximetry (%) 95 03/17/18 09:00 GENERAL: Awake and alert, nonverbal, cachectic HEAD: Normal with no signs of trauma. EYES: extraocular movements intact EARS, NOSE, THROAT: Moist mucous membranes. LUNGS: Breath sounds equal, clear to auscultation bilaterally. No accessory muscle use. HEART: Regular rate and rhythm, normal S1 and S2 without murmur, rub or gallop. ABDOMEN: mildly rigid, nontender, not distended, normoactive bowel sounds, no guarding, LOWER EXTREMITIES: warm, well-perfused. No calf tenderness. No peripheral edema. SKIN: papular rash diffuse over back, papules erythematous CBCD WBC 6.0 K/mm3 (4.0-10.0) 03/17/18 05:30 RBC 4.28 M/mm3 (3.60-5.2) 03/17/18 05:30 Hgb 11.8 GM/dL (10.7-15.3) 03/17/18 05:30 Hct 36.9 % (32.4-45.2) 03/17/18 05:30 MCV 86.2 fl (80-96) 03/17/18 05:30 MCHC 31.8 g/dl (32.0-36.0) L 03/17/18 05:30 RDW 15.3 % (11.6-15.6) 03/17/18 05:30 Plt Count 88 K/MM3 (134-434) L 03/17/18 05:30 MPV 11.4 fl (7.5-11.1) H 03/17/18 05:30 CMP Sodium 147 mmol/L (136-145) H 03/17/18 05:30 Potassium 3.6 mmol/L (3.5-5.1) 03/17/18 05:30 Chloride 114 mmol/L (98-107) H 03/17/18 05:30 Carbon Dioxide 26 mmol/L (21-32) 03/17/18 05:30 Anion Gap 7 MMOL/L (8-16) L 03/17/18 05:30 BUN 12 mg/dL (7-18) 03/17/18 05:30 Creatinine 0.5 mg/dL (0.55-1.3) L 03/17/18 05:30 Creat Clearance w eGFR > 60 (>60) 03/17/18 05:30 Calcium 8.3 mg/dL (8.5-10.1) L 03/17/18 05:30 Total Bilirubin 0.4 mg/dL (0.2-1) 03/17/18 05:30 AST 16 U/L (15-37) 03/17/18 05:30 ALT 14 U/L (13-61) 03/17/18 05:30 Alkaline Phosphatase 58 U/L (45-117) 03/17/18 05:30 Total Protein 5.5 g/dl (6.4-8.2) L 03/17/18 05:30 Albumin 2.9 g/dl (3.4-5.0) L 03/17/18 05:30 Active Medications Acetaminophen (Tylenol -) 650 mg PO Q4H PRN PRN Reason: FEVER Albuterol Sulfate (Ventolin 0.083% Nebulizer Soln -) 1 amp NEB Q4H PRN PRN Reason: SHORT OF BREATH/WHEEZING Chlorhexidine Gluconate (Hibiclens For Decolonization -) 1 applic TP HS [facility] Last Admin: 03/16/18 21:01 Dose: 1 applic Heparin Sodium (Porcine) (Heparin -) 5,000 unit SQ BID [facility] Last Admin: 03/17/18 10:13 Dose: 5,000 unit Potassium Chloride/Sodium Chloride (1/2ns+20meq Kcl) 20 meq in 1,000 mls @ 75 mls/hr IV ASDIR [facility] Stop: 03/19/18 01:04 Last Admin: 03/17/18 12:08 Dose: 75 mls/hr Ceftriaxone Sodium 2 gm/ (Dextrose) 100 mls @ 100 mls/hr IVPB DAILY [facility]; Protocol Last Admin: 03/17/18 13:39 Dose: 100 mls/hr Levothyroxine Sodium (Synthroid -) 50 mcg PO 0700 [facility] Last Admin: 03/17/18 06:13 Dose: Not Given Mupirocin (Bactroban Ointment (For Decolonization) -) 1 applic NS BID [facility] Stop: 03/21/18 21:59 Last Admin: 03/17/18 10:13 Dose: 1 applic Nystatin (Mycostatin Cream -) 1 applic TP BID [facility] Last Admin: 03/16/18 23:00 Dose: 1 applic Pantoprazole Sodium (Protonix -) 40 mg PO DAILY [facility] Last Admin: 03/17/18 10:14 Dose: 40 mg ASSESSMENT/PLAN: Patient is a 87 y/o female with a history of dementia, HTN, COPD, and constipation who is admitted for symptomatic bradycardia. Neuro Dementia - at patients baseline per son - patient nonverbal - rule out seizure, f/u prolactin level due to elevated lactic acid and no current obvious source of infection - Head CT: no evidence of acute intracranial hemorrhage, edema, midline shift , no evidence of acute territorial ischemic changes Cardio Symptomatic bradycardia 2/2 to possible sepsis - bradycardic overnight - EKG showed no acute changes, 1st degree av block, no signs of 2nd or 3rd degree av blocks - Echo: left ventricle normal in size, mild concentric ventricular hypertrophy, EF 60-65% - TSH within normal limits - f/u Dr. Linn - f/u morning cortisol level Pulm COPD - nebulizer treatments prn q6h - aspiration precautions, elevate HOB - oxygenation on room air good, keep > 95% - CXR: no evidence of active pulmonary disease - no home medications for COPD Infectious disease Rule out sepsis 2/2 to possible aspiration PNA vs unspecified source - Patient does not meet sepsis criteria, borderline low white count f/u daily cbc - f/u blood cultures, urine cultures - lactic acidosis resolved - monitor I's & O's - Dr. Harrison- emperic ceftriaxone and Vanc - hypothermia: improved fungal rash on back - apply nystatin to back Hematology Thrombocytopenia 2/2 to r/o sepsis - 88,000 - f/u daily CBC DVT ppx - heparin 5,000 units BID GI ppx - pantoprazole 40 mg po Endocrine Hypothyroidsim - Continue levothyroxine 50 mcg - TSH and T4 within normal limits,f/u T3 FEN - 1/2 NS with 20 meq K, 2 bags - patient full code - puree, nectar thin liquids, with magic cup Dispo: Patient can be moved to tele, discussed with patients son DNR/DNI, provided him with information which he will discuss with the rest of his family and make a decision. Per Dr. Nguyen family not planning to renew hospice for patient. Visit type - Emergency Visit Emergency Visit: No - New Patient This patient is new to me today: No - Critical Care Critical Care patient: Yes Total Critical Care Time (in minutes): 40 Critical Care Statement: The care of this patient involved high complexity decision making to prevent further life threatening deterioration of the patient 's condition and/or to evaluate & treat vital organ system(s) failure or risk of failure.
--- NOTE | 2018-03-17 16:18 | EKG ---
Test Reason : Blood Pressure : / mmHG Vent. Rate : 056 BPM Atrial Rate : 056 BPM P-R Int : 174 ms QRS Dur : 084 ms QT Int : 442 ms P-R-T Axes : 047 023 056 degrees QTc Int : 426 ms POOR DATA QUALITY, INTERPRETATION MAY BE ADVERSELY AFFECTED SINUS BRADYCARDIA OTHERWISE NORMAL ECG WHEN COMPARED WITH ECG OF 16-MAR-2018 11:59, VENT. RATE HAS DECREASED BY 36 BPM NONSPECIFIC T WAVE ABNORMALITY NO LONGER EVIDENT IN ANTERIOR LEADS PATIENT MOVING DURING EKG Confirmed by Cullen Jaramillo ([id number]) on 03/17/2018 4:17:28 PM Referred By: Thu SEPULVEDA Confirmed By:Cullen Jaramillo
[2018-03-17] MEDS: NYSTATIN 100,000 UNIT/GM TOPICAL CREAM 15 GM TUBE TP SCH ×2 (16:57→21:32)
[2018-03-17] MEDS ORDERED: ACETAMINOPHEN 325 MG TABLET (FP) PO PRN (18:45)
[2018-03-17] MEDS ORDERED: ALBUTEROL SO4 0.083% IH SOL 2.5 MG/3 ML VIAL.NEB. NEB PRN (18:45)
[2018-03-17] MEDS ORDERED: MUPIROCIN 2% TOPICAL OINTMENT FOR DECOLONIZATION NS SCH (22:00)
[2018-03-17] MEDS ORDERED: CHLORHEXIDINE GLUCONATE 4% CLEANSER FOR DECOLONIZATION TP SCH (22:00)
[2018-03-18] MEDS: LEVOTHYROXINE NA 50 MCG TABLET (FP) PO SCH (06:02)
[2018-03-18 06:53] LABS: BASO % 0.7 % (0-2.0); EOS % 3.5 % (0-4.5); HEMATOCRIT 37.9 % (32.4-45.2); HEMOGLOBIN 12.2 GM/dL (10.7-15.3); LYMPH % 28.8 % (8-40); MCH 27.1 pg (25.7-33.7); MCHC 32.1 g/dl (32.0-36.0); MEAN CELL VOLUME 84.7 fl (80-96); MEAN PLT VOLUME 11.7 fl (7.5-11.1); MONO % 6.5 % (3.8-10.2); NEUT % 60.5 % (42.8-82.8); PLATELET COUNT 103 K/MM3 (134-434); RBC 4.48 M/mm3 (3.60-5.2); RDW 15.3 % (11.6-15.6); WHITE BLOOD COUNT 5.1 K/mm3 (4.0-10.0)
[2018-03-18 08:15] LABS: ANION GAP 9 MMOL/L (8-16); BLOOD UREA NITROGEN 10 mg/dL (7-18); CALCIUM 8.6 mg/dL (8.5-10.1); CHLORIDE 113 mmol/L (98-107); CO2 24 mmol/L (21-32); GLUCOSE,RANDOM 70 mg/dL (74-106); MAGNESIUM 1.9 mg/dL (1.8-2.4); POTASSIUM 3.8 mmol/L (3.5-5.1); SODIUM 146 mmol/L (136-145)
[2018-03-18 08:19] LABS: ALK PHOS 62 U/L (45-117); BILIRUBIN,TOTAL 0.5 mg/dL (0.2-1); CREATININE 0.5 mg/dL (0.55-1.3); PHOSPHOROUS 3.6 mg/dL (2.5-4.9); SGOT/AST 14 U/L (15-37); SGPT/ALT 11 U/L (13-61); TOT PROT 5.6 g/dl (6.4-8.2)
--- NOTE | 2018-03-18 08:31 | PN ---
Progress Note (short form) - Note Progress Note: Dr. Hoyt to document today. Hospice to be called today Re; recertification as current renewal period is up on 03/30/18.
--- NOTE | 2018-03-18 09:42 | PN ---
Progress Note (short form) - Note Progress Note: cc: alt mental status s: nonverbal, unable to give history. appears comfortable tele: sinus bradycardia Current Medications Acetaminophen (Tylenol -) 650 mg PO Q4H PRN PRN Reason: FEVER Albuterol Sulfate (Ventolin 0.083% Nebulizer Soln -) 1 amp NEB Q4H PRN PRN Reason: SHORT OF BREATH/WHEEZING Heparin Sodium (Porcine) (Heparin -) 5,000 unit SQ BID [facility] Last Admin: 03/17/18 21:33 Dose: 5,000 unit Potassium Chloride/Sodium Chloride (1/2ns+20meq Kcl) 20 meq in 1,000 mls @ 75 mls/hr IV ASDIR [facility] Stop: 03/19/18 01:04 Last Admin: 03/17/18 12:08 Dose: 75 mls/hr Ceftriaxone Sodium 2 gm/ (Dextrose) 100 mls @ 100 mls/hr IVPB DAILY [facility]; Protocol Last Admin: 03/17/18 13:39 Dose: 100 mls/hr Levothyroxine Sodium (Synthroid -) 50 mcg PO DAILY@0700 [facility] Last Admin: 03/18/18 06:02 Dose: 50 mcg Nystatin (Mycostatin Cream -) 1 applic TP BID [facility] Last Admin: 03/17/18 21:32 Dose: 1 applic Pantoprazole Sodium (Protonix -) 40 mg PO DAILY [facility] Vital Signs Period Temp Pulse Resp BP Sys/Chinchilla Pulse Ox Last 24 Hr 97.6 F-98.6 F 54-84 11-17 123-150/67-94 95-98 Constitutional: Yes: Calm, awake, not answering questions appropriately Eyes: Yes: Conjunctiva Clear, EOM Intact HENT: Yes: Atraumatic, Normocephalic Neck: Yes: Supple Respiratory: Yes: Regular, Other (poor effort, not cooperative with exam, unable to auscultate posteriorly) Gastrointestinal: Yes: Normal Bowel Sounds, Soft Renal/: Yes: WNL Cardiovascular: Yes: Regular Rate and Rhythm, Other (unable to assess JVD, not cooperating with exam) Heart Sounds: Yes: S1, S2 Musculoskeletal: Yes: Other (bandages on hand, chewing L hand) Extremities: Yes: Cool Edema: No Peripheral Pulses: 1+ Left Doralis Pedis, 1+ Right Dorsalis Pedis, 2+ Left Carotid, 2+ Right Carotid Integumentary: Yes: WNL Neurological: Yes: Confusion, Lethargy Psychiatric: Yes: Agitated Assessment/Plan echo 02/2018 nl LV size and function, mild conc LVH, nl RWMA, E/A reversal, RV not well visualized, mild TR, mild MAC EKG sinus rhythm, baseline artifact, nonspecific T wave changes Alt mental status, bradycardia, hypotension - echo unremarkable - trop <0.02->0.04->0.03, not c/w ACS - EKG unchanged from prior - patient was hypothermic (reportedly was 92 deg rectal temp on arrival, now improving under heat blanket) which could contribute to bradycardia. patient unable to give further history, unclear etiology for bradycardia. may be related to arrhythmia, vasovagal, or other underlying process. undergoing workup per primary team, on broad spectrum abx currently - patient with sinus bradycardia overnight while sleeping with elevated BPs, sinus rhythm with no episodes of heart block on tele, TSH wnl - dc tele HTN - admitted with hypotension - now wth elevated BPs, has been off quinapril for several months per son - monitor given hypotension Hypothyroidism - TSH stable, cont synthroid Dementia - patient unable to give history, not cooperative with exam - was on hospice, discussed with Dr. Nguyen, re-evaluating for hospice services given multiple recent admissions - manage per primary team
[2018-03-18] MEDS ORDERED: DEXTROSE 5%-WATER 100 ML IVPB ONE (09:58)
[2018-03-18] MEDS: HEPARIN NA (PORCINE) 5,000 UNITS/ML 1ML VIAL SQ SCH ×2 (11:00→22:38)
[2018-03-18] MEDS: CEFTRIAXONE 2 GM in DEXTROSE 5%-WATER 100 ML IVPB SCH (11:10)
[2018-03-18] MEDS: NYSTATIN 100,000 UNIT/GM TOPICAL CREAM 15 GM TUBE TP SCH ×2 (11:11→22:37)
[2018-03-18] MEDS: PANTOPRAZOLE 40 MG TABLET (FP) PO SCH (11:11)
--- NOTE | 2018-03-18 11:35 | PN ---
Progress Note, Physician Chief Complaint: Unable to obtain - Current Medication List Current Medications: Active Medications Acetaminophen (Tylenol -) 650 mg PO Q4H PRN PRN Reason: FEVER Albuterol Sulfate (Ventolin 0.083% Nebulizer Soln -) 1 amp NEB Q4H PRN PRN Reason: SHORT OF BREATH/WHEEZING Heparin Sodium (Porcine) (Heparin -) 5,000 unit SQ BID [facility] Last Admin: 03/17/18 21:33 Dose: 5,000 unit Potassium Chloride/Sodium Chloride (1/2ns+20meq Kcl) 20 meq in 1,000 mls @ 75 mls/hr IV [facility] Stop: 03/19/18 01:04 Last Admin: 03/17/18 12:08 Dose: 75 mls/hr Ceftriaxone Sodium 2 gm/ (Dextrose) 100 mls @ 100 mls/hr IVPB DAILY [facility]; Protocol Last Admin: 03/18/18 11:10 Dose: 100 mls/hr Levothyroxine Sodium (Synthroid -) 50 mcg PO DAILY@0700 [facility] Last Admin: 03/18/18 06:02 Dose: 50 mcg Nystatin (Mycostatin Cream -) 1 applic TP BID [facility] Last Admin: 03/18/18 11:11 Dose: 1 applic Pantoprazole Sodium (Protonix -) 40 mg PO DAILY [facility] Last Admin: 03/18/18 11:11 Dose: 40 mg - Objective Vital Signs: Vital Signs Temperature 36.9 C 03/18/18 05:00 Pulse Rate 82 03/18/18 05:00 Respiratory Rate 17 03/18/18 05:00 Blood Pressure 123/75 03/18/18 05:00 O2 Sat by Pulse Oximetry (%) 98 03/17/18 21:00 Constitutional: Yes: No Distress, Calm, Thin Cardiovascular: Yes: Regular Rate and Rhythm. No: Gallop, Murmur, Rub Respiratory: Yes: Regular, CTA Bilaterally. No: Rales, Rhonchi, Wheezes Gastrointestinal: Yes: Normal Bowel Sounds, Soft. No: Distention, Tenderness Extremities: Yes: WNL Edema: No Labs: CBC, BMP 03/18/18 05:30 03/18/18 05:30 INR, PTT INR 1.07 (0.83-1.09) 03/17/18 05:30 Problem List - Problems (1) Hypothermia Code(s): T68.XXXA - HYPOTHERMIA, INITIAL ENCOUNTER Qualifiers: Encounter type: initial encounter Qualified Code(s): T68.XXXA - Hypothermia , initial encounter (2) Syncope Code(s): R55 - SYNCOPE AND COLLAPSE (3) Bradycardia Code(s): R00.1 - BRADYCARDIA, UNSPECIFIED (4) Hypotension Code(s): I95.9 - HYPOTENSION, UNSPECIFIED (5) Lactic acid acidosis Code(s): E87.2 - ACIDOSIS (6) Dementia Code(s): F03.90 - UNSPECIFIED DEMENTIA WITHOUT BEHAVIORAL DISTURBANCE (7) Hypothyroidism Code(s): E03.9 - HYPOTHYROIDISM, UNSPECIFIED (8) Severe protein-calorie malnutrition Code(s): E43 - UNSPECIFIED SEVERE PROTEIN-CALORIE MALNUTRITION Assessment/Plan (1) Hypothermia Assessment/Plan: -resolved -case d/w ID, will stop antibiotics today and observe Code(s): T68.XXXA - HYPOTHERMIA, INITIAL ENCOUNTER Qualifiers: Encounter type: initial encounter Qualified Code(s): T68.XXXA - Hypothermia , initial encounter (2) Syncope Assessment/Plan: -case d/w cardiology -ECHO reviewed -continue IVF currently Code(s): R55 - SYNCOPE AND COLLAPSE (3) Bradycardia Assessment/Plan: -heart rate currently normal -continue telemetry Code(s): R00.1 - BRADYCARDIA, UNSPECIFIED (4) Hypotension Assessment/Plan -continue IVF while here -normotensive Code(s): I95.9 - HYPOTENSION, UNSPECIFIED (5) Lactic acid acidosis Assessment/Plan: -resolved with hydration Code(s): E87.2 - ACIDOSIS (6) Dementia Assessment/Plan: -stable Code(s): F03.90 - UNSPECIFIED DEMENTIA WITHOUT BEHAVIORAL DISTURBANCE (7) Hypothyroidism Assessment/Plan: -continue synthroid Code(s): E03.9 - HYPOTHYROIDISM, UNSPECIFIED (8) Severe protein-calorie malnutrition Assessment/Plan: -appreciate speech therapy assistance -dysphagia pureed diet Code(s): E43 - UNSPECIFIED SEVERE PROTEIN-CALORIE MALNUTRITION Dispo -plan for discharge tomorrow if no signs of sepsis off of antibiotics -case d/w social work and case management -continue hospice recommended from my standpoint considering patient became hypotensive, hypothermic, and bradycardic from orthostatics secondary to sitting for extended period of time
--- NOTE | 2018-03-18 12:15 | PN ---
Progress Note (short form) - Note Progress Note: Non-verbal. Breathing is non-labored. No acute events overnight. OBJECTIVE: Intake & Output 03/15/18 03/16/18 03/17/18 03/18/18 23:59 23:59 23:59 23:59 Intake Total 625 975 Output Total 1150 1400 Balance -1150 -775 975 Weight 92 lb 5.979 oz 92 lb Last Vital Signs Temp Pulse Resp BP Pulse Ox 98.5 F 82 17 123/75 98 03/18/18 05:00 03/18/18 05:00 03/18/18 05:00 03/18/18 05:00 03/17/18 21:00 Active Medications Acetaminophen (Tylenol -) 650 mg PO Q4H PRN PRN Reason: FEVER Albuterol Sulfate (Ventolin 0.083% Nebulizer Soln -) 1 amp NEB Q4H PRN PRN Reason: SHORT OF BREATH/WHEEZING Heparin Sodium (Porcine) (Heparin -) 5,000 unit SQ BID [facility] Last Admin: 03/17/18 21:33 Dose: 5,000 unit Potassium Chloride/Sodium Chloride (1/2ns+20meq Kcl) 20 meq in 1,000 mls @ 75 mls/hr IV ASDIR [facility] Stop: 03/19/18 01:04 Last Admin: 03/17/18 12:08 Dose: 75 mls/hr Levothyroxine Sodium (Synthroid -) 50 mcg PO DAILY@0700 [facility] Last Admin: 03/18/18 06:02 Dose: 50 mcg Nystatin (Mycostatin Cream -) 1 applic TP BID [facility] Last Admin: 03/18/18 11:11 Dose: 1 applic Pantoprazole Sodium (Protonix -) 40 mg PO DAILY [facility] Last Admin: 03/18/18 11:11 Dose: 40 mg Gen: NAD at rest Heart: S1S2 Lung: decreased breath sounds at the bases Abd: soft, nontender Ext: no edema Laboratory Results - last 24 hr 03/16/18 03/16/18 03/18/18 15:08 15:08 05:30 WBC 5.1 RBC 4.48 Hgb 12.2 Hct 37.9 MCV 84.7 MCH 27.1 MCHC 32.1 RDW 15.3 Plt Count 103 L MPV 11.7 H Absolute Neuts (auto) 3.1 Neutrophils % 60.5 Lymphocytes % 28.8 Monocytes % 6.5 Eosinophils % 3.5 Basophils % 0.7 Nucleated RBC % 0 Sodium Potassium Chloride Carbon Dioxide Anion Gap BUN Creatinine Creat Clearance w eGFR Random Glucose Calcium Phosphorus Magnesium Total Bilirubin AST ALT Alkaline Phosphatase Total Protein Albumin Free T3 1.7 L Prolactin 19.9 03/18/18 05:30 WBC RBC Hgb Hct MCV MCH MCHC RDW Plt Count MPV Absolute Neuts (auto) Neutrophils % Lymphocytes % Monocytes % Eosinophils % Basophils % Nucleated RBC % Sodium 146 H Potassium 3.8 Chloride 113 H Carbon Dioxide 24 Anion Gap 9 BUN 10 Creatinine 0.5 L Creat Clearance w eGFR > 60 Random Glucose 70 L Calcium 8.6 Phosphorus 3.6 Magnesium 1.9 Total Bilirubin 0.5 AST 14 L ALT 11 L Alkaline Phosphatase 62 Total Protein 5.6 L Albumin 3.0 L Free T3 Prolactin ASSESSMENT AND PLAN: Sinus Bradycardia Hypothermia Thrombocytopenia HTN Hypothyroidism Dementia - Monitor off ABX - monitor lytes - DVT prophylaxis - Telemetry monitoring Dr Lawson
--- NOTE | 2018-03-18 18:25 | PN ---
Progress Note, WINDOWS ARCHITECT - Note Progress Note: 84 yo female seen by WINDOWS ARCHITECT as a follow up to swallow eval with recommendations for dysphagia pureed and thin liquids with magic cup inbetween meals. Chart review revealed pt is consuming 50 - 75% meals at bedside. 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 Observe standard aspiration precautions. Crush meds for safety. Results given to [employer] team lead and pcp via chart.
[2018-03-19] MEDS: LEVOTHYROXINE NA 50 MCG TABLET (FP) PO SCH (06:43)
[2018-03-19 07:19] LABS: BASO % 0.7 % (0-2.0); EOS % 2.7 % (0-4.5); HEMATOCRIT 35.4 % (32.4-45.2); HEMOGLOBIN 11.6 GM/dL (10.7-15.3); MCH 27.6 pg (25.7-33.7); MCHC 32.8 g/dl (32.0-36.0); MEAN CELL VOLUME 84.3 fl (80-96); MEAN PLT VOLUME 11.1 fl (7.5-11.1); MONO % 7.6 % (3.8-10.2); PLATELET COUNT 95 K/MM3 (134-434); RDW 15.3 % (11.6-15.6); WHITE BLOOD COUNT 4.2 K/mm3 (4.0-10.0)
[2018-03-19 07:41] LABS: CHLORIDE 112 mmol/L (98-107); SODIUM 145 mmol/L (136-145)
[2018-03-19 07:51] LABS: ANION GAP 5 MMOL/L (8-16); BLOOD UREA NITROGEN 17 mg/dL (7-18); CALCIUM 8.4 mg/dL (8.5-10.1); CO2 28 mmol/L (21-32); CREATININE 0.6 mg/dL (0.55-1.3); GLUCOSE,RANDOM 81 mg/dL (74-106); PHOSPHOROUS 4.1 mg/dL (2.5-4.9)
--- NOTE | 2018-03-19 08:27 | PN ---
Progress Note (short form) - Note Progress Note: Dr. Hoyt to document today. Hopefully will be discharged back home on hospice.
--- NOTE | 2018-03-19 10:21 | PN ---
Progress Note, CORRESPONDENCE DICTATOR - Note Progress Note: Selected Entries 03/18/18 03/18/18 03/18/18 01:31 05:00 11:19 Breakfast 50% Lunch Supper Temperature 98.4 F 98.5 F 03/18/18 03/18/18 03/18/18 14:00 17:00 19:25 Breakfast Lunch 75% Supper Temperature 98.1 F 98.5 F 98.2 F 03/18/18 03/19/18 03/19/18 22:00 01:25 05:00 Breakfast Lunch Supper 100% Temperature 98.3 F 98.5 F Laboratory Tests 03/19/18 06:10 WBC 4.2 On puree/thin liquids with good tolerance.
[2018-03-19] MEDS ORDERED: PT OWN MED DRAWER 7, Y5N ONE (10:39)
[2018-03-19] MEDS: PANTOPRAZOLE 40 MG TABLET (FP) PO SCH (10:40)
[2018-03-19] MEDS: HEPARIN NA (PORCINE) 5,000 UNITS/ML 1ML VIAL SQ SCH (10:40)
--- NOTE | 2018-03-19 11:36 | PN ---
Progress Note (short form) - Note Progress Note: cc: alt mental status s: nonverbal, unable to give history. appears comfortable tele: sinus Current Medications Generic Name Dose Route Start Last Admin Trade Name Rona PRN Reason Stop Dose Admin Acetaminophen 650 mg 03/17/18 18:45 Tylenol - PO Q4H PRN FEVER Albuterol Sulfate 1 amp 03/17/18 18:45 Ventolin 0.083% Nebulizer Soln - NEB Q4H PRN SHORT OF BREATH/WHEEZING Heparin Sodium (Porcine) 5,000 unit 03/17/18 22:00 03/19/18 10:40 Heparin - SQ 5,000 unit BID [facility] Administration Levothyroxine Sodium 50 mcg 03/18/18 07:00 03/19/18 06:43 Synthroid - PO 50 mcg DAILY@0700 [facility] Administration Nystatin 1 applic 03/17/18 22:00 03/18/18 22:37 Mycostatin Cream - TP 1 applic BID [facility] Administration Pantoprazole Sodium 40 mg 03/18/18 10:00 03/19/18 10:40 Protonix - PO 40 mg DAILY [facility] Administration Vital Signs Period Temp Pulse Resp BP Sys/Chinchilla Pulse Ox Last 24 Hr 98.1 F-98.5 F 70-82 18-18 115-132/61-82 97 Constitutional: Yes: Calm,not answering questions appropriately Eyes: Yes: Conjunctiva Clear Respiratory: Yes: Regular, Other (poor effort, not cooperative with exam, unable to auscultate posteriorly) Gastrointestinal: Yes: Normal Bowel Sounds, Soft Cardiovascular: Yes: Regular Rate and Rhythm, Other (unable to assess JVD, not cooperating with exam) Heart Sounds: Yes: S1, S2 Extremities: Yes: Cool Edema: No Peripheral Pulses: 1+ Left Doralis Pedis, 1+ Right Dorsalis Pedis, 2+ Left Carotid, 2+ Right Carotid Integumentary: Yes: WNL Neurological: Yes: Confusion, Lethargy CBC, BMP 03/19/18 06:10 03/19/18 06:10 Assessment/Plan echo 02/2018 nl LV size and function, mild conc LVH, nl RWMA, E/A reversal, RV not well visualized, mild TR, mild MAC EKG sinus rhythm, baseline artifact, nonspecific T wave changes Alt mental status, bradycardia, hypotension - echo unremarkable - trop <0.02->0.04->0.03, not c/w ACS - EKG unchanged from prior - patient was hypothermic on admit which could contribute to bradycardia. patient unable to give further history, unclear etiology for bradycardia. may be related to arrhythmia, vasovagal, or other underlying process. undergoing workup per primary team. - tsh wnl, no pathologic emily on tele - dc tele HTN - admitted with hypotension, now improved Hypothyroidism - TSH stable, cont synthroid Dementia - patient unable to give history, not cooperative with exam - was on hospice, re-evaluating for hospice services given multiple recent admissions - manage per primary team
--- NOTE | 2018-03-19 11:40 | DS ---
Physical Examination Vital Signs: Vital Signs Temperature 98.5 F 03/19/18 05:00 Pulse Rate 70 03/19/18 05:00 Respiratory Rate 18 03/19/18 05:00 Blood Pressure 132/67 03/19/18 05:00 O2 Sat by Pulse Oximetry (%) 97 03/18/18 19:25 Constitutional: Yes: No Distress, Thin Cardiovascular: Yes: Regular Rate and Rhythm Respiratory: Yes: Regular, CTA Bilaterally, Diminished. No: Accessory Muscle Use, Rales, Rhonchi, SOB, Wheezes Gastrointestinal: Yes: WNL, Normal Bowel Sounds, Soft. No: Distention, Tenderness Edema: No Neurological: Yes: Alert, Confusion Psychiatric: Yes: Alert Labs: CBC, BMP 03/19/18 06:10 03/19/18 06:10 Discharge Summary Reason For Visit: SEPSIS Current Active Problems Bradycardia (Acute) Hypotension (Acute) Hypothermia (Acute) Lactic acid acidosis (Acute) Sepsis (Acute) Syncope (Acute) Hospital Course: 88 year old female with pmh of dementia admitted with syncope/hypothermia. pt evaluated by cardiology, no acute findings. evaluated by ID, no infectious source, received empiric antibx. all work up neg. hypothermia resolved. pt is full code, goals of care discussed with son. pt is medically stable for discharge, vitals stable, labs unremarkable, no signs of sepsis. continue home hospice. 32 minutes spent d/c planning Condition: Fair - Instructions Referrals: Alvaro Nguyen MD [Primary Care Provider] - 1 Week Disposition: VNS/HOME HEALTH CARE - Home Medications Comprehensive Discharge Medication List: Ambulatory Orders Levothyroxine [Synthroid -] 50 mcg PO DAILY 06/21/14 Folic Acid 1 tablet PO DAILY 03/16/18 Pantoprazole Sodium 30 mg PO DAILY 03/16/18
[2018-03-19 12:06] VITALS: BP 105/63; PULSE 84; TEMP 98.2
[2018-03-19] MEDS: NYSTATIN 100,000 UNIT/GM TOPICAL CREAM 15 GM TUBE TP SCH (13:27)
== END 2018-03-19 14:07 | disposition home health service (06) | DRG 201 ==
LOC: JER 11:36 → JERBED 14:42 → JICU 18:51 → J4W 03-17 18:02
PROVIDERS: ADMIT Internal Medicine; ATTEND Internal Medicine
DX: R00.1 Bradycardia, unspecified (principal); D69.6 Thrombocytopenia, unspecified; I10 Essential (primary) hypertension; E03.9 Hypothyroidism, unspecified; F03.90 Unspecified dementia, unspecified severity, without behavioral disturbance, psychotic disturbance, mood disturbance, and anxiety; E87.2 Acidosis; E43 Unspecified severe protein-calorie malnutrition; Z68.1 Body mass index [BMI] 19.9 or less, adult; R68.0 Hypothermia, not associated with low environmental temperature; R55 Syncope and collapse; R41.82 Altered mental status, unspecified; R64 Cachexia; I95.9 Hypotension, unspecified
CPT/HCPCS: 36415; 70450-TC; 71045-TC-FY; 80048; 80053; 81003; 82533; 82550; 82607; 82746; 82803; 82962; 83605; 83735; 84100; 84146; 84439; 84443; 84481; 84484; 85025; 85027; 85610; 85730; 87040; 87086; 93005; 93010; 93306-TC; 99285-25; J1644; J3480; J7030

== ENCOUNTER 2018-07-07 19:03 | Inpatient (IN) | payer OTHER ==
[2018-07-07] MEDS ORDERED: SODIUM CHLORIDE 0.9% 500 ML INFUS.BAG IV ONE (19:34)
--- NOTE | 2018-07-07 19:58 | PDOC ---
History of Present Illness - General Stated Complaint: UNRESPONSIVE Time Seen by Provider: 07/07/18 19:31 History Source: EMS, Family Exam Limitations: Clinical Condition, Dementia - History of Present Illness Initial Comments: 07/07/18 19:36 88YOF with h/o severe dementia, baseline bedbound, HTN, recurrent UTI, constipation, hypothyroidism, protein-calorie malnutrition, DNR with HCP (son) requesting DNI, who was BIBEMS for ALOC at home since yesterday evening. The patient herself is unable to give any medical history 2/2 dementia and obtundation. EMS states she was lethargic on their arrival, though vitals all maintained except she had occasional apneic spells and FSBG was in the 90s. They actually considered intubating during one such apneic spell but discussed this with the son HCP and he asked that this not be done. The family notes the patient lives at home with her son, they receive home health aid 4 times/week. She has been constipated for the past few days but this is something she struggles with regularly. She has also been eating much less than normal, had a normal meal last night but nothing at all today and no fluids, and was lethargic and minimally responsive to voice. The patient has been seen here in the [facility] ED and admitted for ALOC and hypotension before, last admission 02/2018. Past History - Past Medical History Allergies/Adverse Reactions: Allergies Allergy/AdvReac Type Severity Reaction Status Date / Time No Known Allergies Allergy Verified 07/07/18 20:11 Home Medications: Ambulatory Orders Levothyroxine [Synthroid -] 50 mcg PO DAILY 06/21/14 Folic Acid 1 tablet PO DAILY 03/16/18 Pantoprazole Sodium 30 mg PO DAILY 03/16/18 COPD: No Dementia: Yes HTN: Yes - Surgical History Abdominal Surgery: Yes (left inguinal hernia) Cholecystectomy: Yes - Immunization History Immunization Up to Date: Yes - Suicide/Smoking/Psychosocial Hx Smoking Status: No Smoking History: Never smoked Have you smoked in the past 12 months: No Number of Cigarettes Smoked Daily: 0 Hx Alcohol Use: No Drug/Substance Use Hx: No Substance Use Type: None Hx Substance Use Treatment: No Review of Systems - Review of Systems Able to Perform ROS?: No (dementia, obtunded) *Physical Exam - Vital Signs 07/07/18 20:29 Initial Vital Signs Temp Pulse Resp BP Pulse Ox 99.1 F 87 12 128/83 94 L 07/07/18 19:03 07/07/18 19:03 07/07/18 19:03 07/07/18 19:03 07/07/18 19:03 - Physical Exam Comments: 07/07/18 20:29 GENERAL: obtunded, cachectic, appears dehydrated, unable to answer questions, no response to verbal stimuli, responds to pain HEENT: PERRLA, dry mucous membranes NECK/BACK: no spinal stepoff or deformity, no hematoma, neck supple CARDIOVASCULAR: regular rate/rhythm, normal S1S2, no MGR, capillary refill <2 seconds, extremities wwp, no edema 07/07/2018 LUNGS/RESPIRATORY: nononlabored respirations, lungs CTAB GI/ABDOMEN: symmetric keru-gc-mxab, normoactive BS, soft, no midline pulsatile masses, no organomegaly : in diaper, no Pineda, no lesions EXTREMITIES: chronic muscle atrophy, no acute deformity, no edema SKIN: warm and dry, +skin tenting, no pallor, no jaundice, no rash, no bruising , no skin breakdown, no cuts NEUROLOGICAL: cannot assess a/o, GCS is 5, CN II-XII grossly intact, no obvious facial droop, otherwise patient is unable to participate in exam Heart Score/ECG Review #1 07/07/18 19:24 NSR, rate 83, normal axis, QTc 472, TWI in aVL, V234, no additional ST-T changes ED Treatment Course - LABORATORY CBC & Chemistry Diagram: 07/07/18 20:30 07/07/18 20:30 - RADIOLOGY Radiology Studies Ordered: Category Date Time Status CHEST X-RAY PORTABLE* [RAD] Stat Radiology 07/07/18 19:31 Ordered Medical Decision Making - Medical Decision Making Adult Pt p/w acute worsening of mental status. Initial Vital Signs Temp Pulse Resp BP Pulse Ox 99.1 F 87 12 128/83 94 L 07/07/18 19:03 07/07/18 19:03 07/07/18 19:03 07/07/18 19:03 07/07/18 19:03 Exam: As noted in Physical Exam section. DDX IBNLT: structural (e.g. epilepsy, brain tumor, CVA/TIA, NPH, CJD, ACS, PE, Noe disease), infectious (e.g. UTI, PNA, bronchitis, cellulitis, meningitis, neurosyphilis, HIV-associated dementia), VS abnormalities (e.g. fever, hypertensive emergency), toxic-metabolic (e.g. medications, drugs e.g. serotonin syndrome/neuroleptic malignant syndrome or street drugs, electrolytes , hypothyroid, B12 deficiency), psychiatric (e.g. delirium, dementia, psychosis) , TTP (HUS with AMS, fever, poss seizure), etc. W/U ordered: Labs as noted below, HCT, CXR, EKG TX ordered: IVF EKG: Reviewed; results as noted in ECG Review section. 07/07/18 21:06 CXR: Nothing acute. Labs: Reassessment: Repeat VS: ADMIT Pt to be admitted given acute change in mental status. They are unsafe for discharge at this time. They require further hospital observation, workup, and treatment. Microblog sent to [facility] for admission. Blank Decision to Admit order is placed per ED protocol. Spoke with admitting team disability representative, in agreement Pt to be admitted. Decision to Admit order corrected with admitting team covering attendings name. 07/07/18 21:46 Patient very hypernatremic and NS bolus is stopped. Water deficit calculated at >4 liters. Correction must be ~10 mEq per 24 hour period. D5W ordered at 45 cc/hr. *DC/Admit/Observation/Transfer Diagnosis at time of Disposition: Hypernatremia Failure to thrive Qualifiers: Failure to thrive age range: in adult Qualified Code(s): R62.7 - Adult failure to thrive Dementia Qualifiers: Dementia type: unspecified type Dementia behavioral disturbance: without behavioral disturbance Qualified Code(s): F03.90 - Unspecified dementia without behavioral disturbance - Discharge Dispostion Condition at time of disposition: Guarded Decision to Admit order: Yes - Referrals Referrals: Alvaro Nguyen MD [Primary Care Provider] - - Patient Instructions - Post Discharge Activity
[2018-07-07 20:46] LABS: BASO % 0.3 % (0-2.0); EOS % 0.2 % (0-4.5); HEMATOCRIT 42.1 % (32.4-45.2); HEMOGLOBIN 13.9 GM/dL (10.7-15.3); LYMPH % 10.6 % (8-40); MCH 28.6 pg (25.7-33.7); MEAN CELL VOLUME 86.6 fl (80-96); MEAN PLT VOLUME 12.6 fl (7.5-11.1); MONO % 5.5 % (3.8-10.2); NEUT % 83.4 % (42.8-82.8); PLATELET COUNT 60 K/MM3 (134-434); RBC 4.86 M/mm3 (3.60-5.2); RDW 17.4 % (11.6-15.6); WHITE BLOOD COUNT 6.7 K/mm3 (4.0-10.0)
[2018-07-07 21:22] LABS: INR 1.12 (0.83-1.09); PROTHROMBIN TIME (PATIENT) 13.2 SEC (9.7-13.0)
[2018-07-07 21:25] LABS: ACTIVATED PTT 43.4 SECONDS (25.2-36.5)
[2018-07-07 21:26] LABS: ALBUMIN 2.6 g/dl (3.4-5.0); ALK PHOS 97 U/L (45-117); ANION GAP 9 MMOL/L (8-16); BILIRUBIN,TOTAL 0.9 mg/dL (0.2-1); BLOOD UREA NITROGEN 37 mg/dL (7-18); CALCIUM 8.3 mg/dL (8.5-10.1); CHLORIDE 134 mmol/L (98-107); CO2 29 mmol/L (21-32); CREATININE 0.8 mg/dL (0.55-1.3); GLUCOSE,RANDOM 84 mg/dL (74-106); POTASSIUM 3.3 mmol/L (3.5-5.1); SGOT/AST 18 U/L (15-37); SGPT/ALT 19 U/L (13-61); TOT PROT 5.1 g/dl (6.4-8.2)
[2018-07-07 21:34] LABS: SODIUM 172 mmol/L (136-145)
[2018-07-07] MEDS ORDERED: DEXTROSE 5%-WATER - 1,000 ML IV SCH (21:45)
[2018-07-07 22:22] LABS: VENOUS PC02 43.4 mmHg (38-52); VENOUS PH 7.44 (7.32-7.42)
[2018-07-07 22:23] LABS: VENOUS PO2 61.3 mmHg (28-48)
[2018-07-07 22:33] LABS: MAGNESIUM 2.2 mg/dL (1.8-2.4)
--- NOTE | 2018-07-07 22:36 | PDOC ---
Attending Attestation - Resident Resident Name: Mojgan Barahona - ED Attending Attestation I have performed the following: I have examined & evaluated the patient, The case was reviewed & discussed with the resident, I agree w/resident's findings & plan, Exceptions are as noted - HPI HPI: 07/07/18 22:29 The patient is a 88 year old female with a significant past medical history of hypertension, COPD, dementia, hypothyroidism, protein-calorie malnutrition, recurrent UTIs and constipation who presents to the emergency department via EMS from home (with her son, health care proxy) for 2 days of lethargy and progressive AMS. As per the patient's son, the patient was noted to be lethargic with decreased PO intake. The patient's son states that the patient lives at home with him and they have a REINSURANCE CLAIMS ANALYST come 4x a week.As per EMS, the patient had occasional apneic spells en route to ED by which they were going to intubated but the patient's son refused. Per the son, a breathing tube would not be consistent with her wishes. He is her HCP. - Physicial Exam PE: 07/07/18 22:33 agree with resident exam - Medical Decision Making 07/07/18 19:33 88yo F presents to the ED with AMS, lethargy. DDx is wide includes infections vs metabolic vs neurologic vs ischemic etiology. Plan for labs, CTH, CXR, UA, anticipate admission. Upon discussion with son/HCP, pt is DNR/DNI. 07/07/18 22:34 Sodium 172, which is new compared to previous labs Free water deficit approx 4L PT received about 300cc en route to ED, NS stopped D5W gtt at 55cc/hr started at 2220, goal to drop Na by 10meq daily. Will check BMP 4 hours @0220 CTH pending, once back will admit 07/08/18 01:00 CTH neg pt admitted to hospitalists
[2018-07-07] MEDS ORDERED: ACETAMINOPHEN 1000 MG/100 ML VIAL (NON FORMULARY) IVPB ONE (22:48)
[2018-07-08] MEDS ORDERED: DEXTROSE 5%-WATER - 1,000 ML IV SCH ×3 (01:30→03:58)
[2018-07-08] MEDS: KCL 10 MEQ IVPB 10 MEQ/100 ML INFUS.BAG IVPB SCH ×3 (01:54→05:00)
--- NOTE | 2018-07-08 02:50 | HP ---
CHIEF COMPLAINT: PCP: HISTORY OF PRESENT ILLNESS: Pt has severe dementia. Hx obtained from son and EMR 88 yo F w/ PMH severe dementia, baseline bedbound and minimally verbal, HTN, recurrent UTI, constipation, hypothyroidism, COPD?, protein-calorie malnutrition , DNR/DNI, who was BIBEMS for AMS x1d and decreased PO x 5d. The patient herself is unable to give any medical history 2/2 dementia and obtundation. Pt has had decreased PO intake since since Friday (x5d), unclear why, was her usual self prior. Today was lethargic and minimally responsive to voice, more than usual. EMS states she was lethargic on their arrival, though vitals all maintained except she had occasional apneic spells and FSBG was in the 90s. They actually considered intubating during one such apneic spell but discussed this with the son HCP and he asked that this not be done. Per son, patient lives at home with him, they receive home health aid 4 times/week. Per son, she had large BM w/ brown stool after he gave her senna for her constipation is something she struggles with regularly but was more constipated 2/2 decreased PO intake. Denies fevers, chills, cp, sob, n/v/d, urinary sxs, blood in stools, limb weakness, or facial droop or drooling. ER course was notable for: (1) hypernatremia 172 (2) cxr, head ct no acute pathology to explain acute AMS (3) EKG: NSR, rate 83, normal axis, QTc 472, TWI in aVL, V234, no additional ST- T changes received about 300cc NS en route to ED and ~100cc NS in ED DNR with HCP (son) requesting DNI HCP signed DNR/DNI Recent Travel: None PAST MEDICAL HISTORY: See HPI Off home hospice ~apr-may 2018 PAST SURGICAL HISTORY: Cholecystectomy Hernia Repair 2004 Childbirth Social History: Smoking: Never Alcohol: None Drugs: None Resides at home with her Son- primary caregiver HUSSEIN come 4x a week Family History: Allergies No Known Allergies Allergy (Verified 07/07/18 20:11) HOME MEDICATIONS: Home Medications Medication Instructions Recorded Levothyroxine [Synthroid -] 50 mcg PO DAILY 06/21/14 Folic Acid 1 tablet PO DAILY 03/16/18 Pantoprazole Sodium 30 mg PO DAILY 03/16/18 REVIEW OF SYSTEMS as per hpi PHYSICAL EXAMINATION Vital Signs - 24 hr 07/07/18 07/07/18 19:03 20:55 Temperature 99.1 F Pulse Rate 87 Respiratory 12 Rate Blood Pressure 128/83 O2 Sat by Pulse 94 L 92 L Oximetry (%) GENERAL: AOX0, lethargic, responds to pain, minimal response to voice. non responsive to commands. cachetic appearing, elderly HEAD: NCAT EYES: sclera anicteric, conjunctiva clear. No lid lag. EARS, NOSE, THROAT: Ears normal, nares patent,. dry mucous membranes. +thrush NECK: Normal range of motion, supple without lymphadenopathy, JVD, or masses. LUNGS: CTAB HEART: RRR, normal S1 and S2 without murmur, rub or gallop. ABDOMEN: Soft, nontender, not distended, normoactive bowel sounds, no guarding, no rebound, no masses. MUSCULOSKELETAL: Normal range of motion at all joints. No bony deformities or tenderness. UPPER EXTREMITIES: 2+ pulses, warm, well-perfused. No cyanosis. No clubbing. No peripheral edema. LOWER EXTREMITIES: 2+ pulses, warm, well-perfused. No calf tenderness. No peripheral edema. NEUROLOGICAL: lethargic, responds to pain, minimal response to voice. non responsive to commands SKIN: Warm, dry, normal turgor, no rashes or lesions noted, normal capillary refill. Laboratory Results - last 24 hr 07/07/18 07/07/18 07/07/18 20:30 20:30 20:30 WBC 6.7 RBC 4.86 Hgb 13.9 Hct 42.1 D MCV 86.6 MCH 28.6 MCHC 33.0 RDW 17.4 H Plt Count 60 L D MPV 12.6 H D Absolute Neuts (auto) 5.6 Neutrophils % 83.4 H D Lymphocytes % 10.6 D Monocytes % 5.5 Eosinophils % 0.2 D Basophils % 0.3 Nucleated RBC % 0 PT with INR 13.20 H INR 1.12 H PTT (Actin FS) 43.4 H VBG pH 7.44 H POC VBG pCO2 43.4 POC VBG pO2 61.3 H D Mixed VBG HCO3 29.0 H Sodium Potassium Chloride Carbon Dioxide Anion Gap BUN Creatinine Creat Clearance w eGFR Random Glucose Lactic Acid Calcium Magnesium Total Bilirubin AST ALT Alkaline Phosphatase Creatine Kinase CK-MB (CK-2) Total Protein Albumin Blood Type Antibody Screen 07/07/18 07/07/18 07/07/18 20:30 20:30 20:30 WBC RBC Hgb Hct MCV MCH MCHC RDW Plt Count MPV Absolute Neuts (auto) Neutrophils % Lymphocytes % Monocytes % Eosinophils % Basophils % Nucleated RBC % PT with INR INR PTT (Actin FS) VBG pH POC VBG pCO2 POC VBG pO2 Mixed VBG HCO3 Sodium 172 H* Potassium 3.3 L Chloride 134 H Carbon Dioxide 29 Anion Gap 9 BUN 37 H Creatinine 0.8 Creat Clearance w eGFR > 60 Random Glucose 84 Lactic Acid 0.8 Calcium 8.3 L Magnesium 2.2 Total Bilirubin 0.9 AST 18 ALT 19 Alkaline Phosphatase 97 Creatine Kinase 34 CK-MB (CK-2) < 1.0 Total Protein 5.1 L Albumin 2.6 L Blood Type O POSITIVE Antibody Screen Negative 07/07/18 22:00 WBC RBC Hgb Hct MCV MCH MCHC RDW Plt Count MPV Absolute Neuts (auto) Neutrophils % Lymphocytes % Monocytes % Eosinophils % Basophils % Nucleated RBC % PT with INR INR PTT (Actin FS) VBG pH POC VBG pCO2 POC VBG pO2 Mixed VBG HCO3 Sodium Potassium Chloride Carbon Dioxide Anion Gap BUN Creatinine Creat Clearance w eGFR Random Glucose Lactic Acid Calcium Magnesium Cancelled Total Bilirubin AST ALT Alkaline Phosphatase Creatine Kinase CK-MB (CK-2) Total Protein Albumin Blood Type Antibody Screen ASSESSMENT/PLAN: 88 yo F w/ PMH severe dementia, baseline bedbound and minimally verbal, HTN, recurrent UTI, constipation, hypothyroidism, COPD?, protein-calorie malnutrition , DNR/DNI, BIBEMS for AMS x1d and decreased PO x 5d Acute encephalopathy likely 2/2 severe hypernatremia 2/2 poor PO intake - must r /o other causes including infx. pt afebrile and w/o tachycardia or leukocytosis. CXR, CT head showed no acute pathology. f/u UA, Ucx, Bcx Renal consult - per Dr. Trujillo monitor BMPs and avoid correction >8meq/24h received about 300cc NS en route to ED and ~100cc NS in ED Water deficit calculated at 4.6 liters. Correction should be ~8 mEq per 24 hour period. careful to avoid overcorrection D5W ordered at 42 cc/hr. seizure precaution fall precautions aspiration precautions BMP q4h check folic acid, B12, TSH c/w home dose folic acid NPO until pt can tolerate, then can advance to low Na diet Thrombocytopenia - 60s. noted on last admission and has worsened, was attributed to malnutrition will hold off on SQH for dvt ppx. instead SCDs and monitor plts hypothyroidism c/w home dose synthroid when able to take PO check TSH Advanced Dementia -DNR/DNI was in hospice. -consider palliative care consult. Thrush -Nystatin swish and swallow hypoalbuminemia- 2.6 check prealbumin Consider nutrition consult. HTN - ctl monitor BP keep <160 FEN D5W ordered at 42 cc/hr. replete prn NPO, swallow study in AM then can advance to low Na diet if tolerates ppx SCDs protonix 40 IVP DNR/DNI Dispo Med/surg Visit type - Emergency Visit Emergency Visit: Yes ED Registration Date: 07/08/18 Care time: The patient presented to the Emergency Department on the above date and was hospitalized for further evaluation of their emergent condition. - New Patient This patient is new to me today: Yes Date on this admission: 07/08/18 - Critical Care Critical Care patient: No
[2018-07-08 03:03] LABS: URINE APPEARANCE SLCLOUDY; URINE BILIRUBIN NEGATIVE (<2.0 mg/dL); URINE COLOR YELLOW; URINE GLUCOSE (UA) NEGATIVE (NEGATIVE); URINE KETONE NEGATIVE (NEGATIVE); URINE LEUK ESTERASE NEGATIVE (NEGATIVE); URINE NITRITE NEGATIVE (NEGATIVE); URINE PROTEIN NEGATIVE (NEGATIVE); URINE UROBILINOGEN NEGATIVE mg/dL (0.2-1.0)
[2018-07-08 03:48] LABS: ANION GAP 3 MMOL/L (8-16); BLOOD UREA NITROGEN 39 mg/dL (7-18); CALCIUM 8.5 mg/dL (8.5-10.1); CHLORIDE 132 mmol/L (98-107); CO2 33 mmol/L (21-32); GLUCOSE,RANDOM 99 mg/dL (74-106); POTASSIUM 3.6 mmol/L (3.5-5.1)
[2018-07-08 03:54] LABS: SODIUM 168 mmol/L (136-145)
--- NOTE | 2018-07-08 04:32 | PN ---
Teaching Attending Note Name of Resident: Jean Bauer ATTENDING PHYSICIAN STATEMENT I saw and evaluated the patient. I reviewed the resident's note and discussed the case with the resident. I agree with the resident's findings and plan as documented. SUBJECTIVE: Seen and examined; please refer to resident note for further historical information. Briefly, this is an 88 y/o AAF with a PMH as described presenting to the ER with severe AMS superimposed on her chronic dementia; she is found to be severely hypernatremic to the high 170s. She cannot provide any history; she is nonverbal and bedbound at baseline. Used to be on home hospice (please see notes last admit from [facility] physician regarding this); has been home with her family who helps provide care. They confirmed she is DNR/I. She has been less interactive the past several days and was found to have very diminished PO intake. Nephrology was contacted; confirmed with family they don' t want 'heroics' or ICU. Unfortunately son wasn't present when I was there but resident of record did get a chance to converse with him. We spoke to nephrology prior to the patient being accepted formally to our service; they recommended D5W a 42cc/hr and rechecking BMP Q4H on the floor which will be done. 10 sys ROS done and negative aside from HPI PMH and PSH reviewed FH asked and noncontributory Socially she is a nonsmoker, nondrinker. Bedbound due to advanced dementia. Medication list reviewed; pending reconciliation OBJECTIVE: VS, labs, imaging reviewed Extremely frail, resting in bed, altered but will track somewhat, not following commands, not agitated or in distress. Nonverbal. RRR s1/2 no mgr Thin skin, dry, no rashes or abrasions noted NT ND +BS AT EOMI; temporal wasting Couldn't do a full neuro or psych exam; she is moving all 4 ext and sensorium is normal. PERRLA EOMI with normal to slightly diminished muscle tone. Labs show Na 172 with Cl 134 and BUN 37 (up from wnl last admission). Marked hypoalbuminemia to 2.6. UA pending Imaging shows a CXR without acute findings. CT head shows L>R opacification of mastoid air cells, no acute findings with brain ASSESSMENT AND PLAN: Patient presents with AMS, failure to thrive found to have severe hypernatremia to 170s. Nephrology following. She is DNR/I. 1) Severe Hypernatremia -Admitting to med/surg with nephrology consult. Seizure precautions, q4h BMP. Likely due to poor PO intake. -D5W at 42cc/hr and careful to avoid overcorrection; adjust rate PRN -Family doesn't want 'heroics.' 2) AMS -Likely toxic metabolic encephalopathy due to #1 but of course will consider alternative diagnosis if doesn't improve -Fall precautions, neuro checks -Treating underlying issue. CT head normal. Consider checking thiamine, B12, TSH, etc. -NPO; swallow study in AM 3) Advanced Dementia -DNR/I; was in hospice. Reviewed old records -Would be reasonable to offer a palliative care consult. 4) Thrombocytopenia -Worse than in the past -SCDs for DVT px; monitor CBC 5) Hx GERD -Resume PO meds when taking PO 6) Hx HTN -PRN meds; monitor BP here keep <160 7) Hx Hypothyroidism -Check TSH; continue her home med when able to take PO 8) Profound hypoalbuminemia -2.6; check her prealbumin. Consider nutrition consult. 9) Elevated BUN -Likely 2/2 dehydration 10) Thrush -Nystatin swish and swallow FENA -D5@42 -Per above; replaced K in ER; rechecking -NPO for now with planned swallow eval -Bedbound at home DNR/I
[2018-07-08] MEDS: NYSTATIN 500,000 UNITS/5 ML SUSPENSION PO SCH ×4 (06:15→23:47)
[2018-07-08] MEDS ORDERED: LEVOTHYROXINE NA 50 MCG TABLET (FP) PO SCH (07:00)
[2018-07-08 07:19] LABS: BASO % 0.5 % (0-2.0); EOS % 0.4 % (0-4.5); HEMATOCRIT 44.2 % (32.4-45.2); HEMOGLOBIN 13.4 GM/dL (10.7-15.3); LYMPH % 19.7 % (8-40); MCH 26.9 pg (25.7-33.7); MCHC 30.4 g/dl (32.0-36.0); MEAN CELL VOLUME 88.6 fl (80-96); MEAN PLT VOLUME 12.3 fl (7.5-11.1); MONO % 7.4 % (3.8-10.2); PLATELET COUNT 57 K/MM3 (134-434); RBC 4.99 M/mm3 (3.60-5.2); RDW 17.4 % (11.6-15.6); WHITE BLOOD COUNT 5.9 K/mm3 (4.0-10.0)
--- NOTE | 2018-07-08 08:37 | PN ---
Progress Note (short form) - Note Progress Note: Dr. Hoyt to document today. SEVERE dementia with recent further loss of appetite and fluid intake. On Hospice but ? whether they did not recertify last renewal period. I do not think the son revoked. ? [place]
[2018-07-08 08:38] LABS: ALBUMIN 2.6 g/dl (3.4-5.0); ALK PHOS 96 U/L (45-117); ANION GAP 7 MMOL/L (8-16); BILIRUBIN,TOTAL 0.7 mg/dL (0.2-1); BLOOD UREA NITROGEN 36 mg/dL (7-18); CALCIUM 8.1 mg/dL (8.5-10.1); CHLORIDE 131 mmol/L (98-107); CO2 28 mmol/L (21-32); CREATININE 0.8 mg/dL (0.55-1.3); GLUCOSE,RANDOM 89 mg/dL (74-106); MAGNESIUM 2.4 mg/dL (1.8-2.4); PHOSPHOROUS 2.8 mg/dL (2.5-4.9); POTASSIUM 3.8 mmol/L (3.5-5.1); PREALBUMIN 14.2 mg/dl (20-40); SGOT/AST 16 U/L (15-37); SGPT/ALT 19 U/L (13-61); TOT PROT 5.1 g/dl (6.4-8.2)
[2018-07-08 08:43] LABS: SODIUM 167 mmol/L (136-145)
[2018-07-08] MEDS ORDERED: ENOXAPARIN NA (PORCINE) 30 MG/0.3 ML DISP.SYRIN SQ SCH (10:00)
[2018-07-08] MEDS ORDERED: HEPARIN NA (PORCINE) 5,000 UNITS/ML 1ML VIAL SQ SCH (10:00)
--- NOTE | 2018-07-08 10:03 | PN ---
Physical Exam: SUBJECTIVE: Patient seen and examined at bed side this morning and afternoon. Patient opened her eyes, smiled at her son, non verbal, didn't follow commands. OBJECTIVE: Vital Signs Period Temp Pulse Resp BP Sys/Chinchilla Pulse Ox Last 24 Hr 97.1 F-99.1 F 71-87 12-20 125-140/68-84 92-100 GENERAL: Elderly female, cachectic, is lethargic , awake, non verbal, in no acute distress. EYES: No pallor or icterus. ENT: Dry mucous membranes, oral thrush. NECK: Supple. LUNGS: Decreased breath sounds bilaterally, no crackles or wheeze. HEART: Regular rate and rhythm, S1, S2 with systolic murmur. ABDOMEN: Soft, nontender, no organomegaly, BS +. EXTREMITIES: 2+ pulses, warm, well-perfused, no edema. NEUROLOGICAL: No facial droop, non verbal, not following commands. PSYCH: Poor eye contact. SKIN:Dry skin. Laboratory Results - last 24 hr 07/07/18 07/07/18 07/07/18 20:30 20:30 20:30 WBC 6.7 RBC 4.86 Hgb 13.9 Hct 42.1 D MCV 86.6 MCH 28.6 MCHC 33.0 RDW 17.4 H Plt Count 60 L D MPV 12.6 H D Absolute Neuts (auto) 5.6 Neutrophils % 83.4 H D Lymphocytes % 10.6 D Monocytes % 5.5 Eosinophils % 0.2 D Basophils % 0.3 Nucleated RBC % 0 PT with INR 13.20 H INR 1.12 H PTT (Actin FS) 43.4 H VBG pH 7.44 H POC VBG pCO2 43.4 POC VBG pO2 61.3 H D Mixed VBG HCO3 29.0 H Sodium Potassium Chloride Carbon Dioxide Anion Gap BUN Creatinine Creat Clearance w eGFR Random Glucose Lactic Acid Calcium Phosphorus Magnesium Total Bilirubin AST ALT Alkaline Phosphatase Creatine Kinase CK-MB (CK-2) Total Protein Albumin Prealbumin Vitamin B12 Serum Folate Urine Color Urine Appearance Urine pH Ur Specific [place] Urine Protein Urine Glucose (UA) Urine Ketones Urine Blood Urine Nitrite Urine Bilirubin Urine Urobilinogen Ur Leukocyte Esterase Urine Osmolality Ur Random Sodium Influenza A (Rapid) Influenza B (Rapid) Blood Type Antibody Screen 07/07/18 07/07/18 07/07/18 20:30 20:30 20:30 WBC RBC Hgb Hct MCV MCH MCHC RDW Plt Count MPV Absolute Neuts (auto) Neutrophils % Lymphocytes % Monocytes % Eosinophils % Basophils % Nucleated RBC % PT with INR INR PTT (Actin FS) VBG pH POC VBG pCO2 POC VBG pO2 Mixed VBG HCO3 Sodium 172 H* Potassium 3.3 L Chloride 134 H Carbon Dioxide 29 Anion Gap 9 BUN 37 H Creatinine 0.8 Creat Clearance w eGFR > 60 Random Glucose 84 Lactic Acid 0.8 Calcium 8.3 L Phosphorus Magnesium 2.2 Total Bilirubin 0.9 AST 18 ALT 19 Alkaline Phosphatase 97 Creatine Kinase 34 CK-MB (CK-2) < 1.0 Total Protein 5.1 L Albumin 2.6 L Prealbumin Vitamin B12 Serum Folate Urine Color Urine Appearance Urine pH Ur Specific [place] Urine Protein Urine Glucose (UA) Urine Ketones Urine Blood Urine Nitrite Urine Bilirubin Urine Urobilinogen Ur Leukocyte Esterase Urine Osmolality Ur Random Sodium Influenza A (Rapid) Influenza B (Rapid) Blood Type O POSITIVE Antibody Screen Negative 07/07/18 07/07/18 07/08/18 21:23 22:00 02:30 WBC RBC Hgb Hct MCV MCH MCHC RDW Plt Count MPV Absolute Neuts (auto) Neutrophils % Lymphocytes % Monocytes % Eosinophils % Basophils % Nucleated RBC % PT with INR INR PTT (Actin FS) VBG pH POC VBG pCO2 POC VBG pO2 Mixed VBG HCO3 Sodium Potassium Chloride Carbon Dioxide Anion Gap BUN Creatinine Creat Clearance w eGFR Random Glucose Lactic Acid Calcium Phosphorus Magnesium Cancelled Total Bilirubin AST ALT Alkaline Phosphatase Creatine Kinase CK-MB (CK-2) Total Protein Albumin Prealbumin Vitamin B12 Serum Folate Urine Color Urine Appearance Urine pH Ur Specific [place] Urine Protein Urine Glucose (UA) Urine Ketones Urine Blood Urine Nitrite Urine Bilirubin Urine Urobilinogen Ur Leukocyte Esterase Urine Osmolality Ur Random Sodium 97 Influenza A (Rapid) Negative Influenza B (Rapid) Negative Blood Type Antibody Screen 07/08/18 07/08/18 07/08/18 02:35 02:35 02:35 WBC RBC Hgb Hct MCV MCH MCHC RDW Plt Count MPV Absolute Neuts (auto) Neutrophils % Lymphocytes % Monocytes % Eosinophils % Basophils % Nucleated RBC % PT with INR INR PTT (Actin FS) VBG pH POC VBG pCO2 POC VBG pO2 Mixed VBG HCO3 Sodium Potassium Chloride Carbon Dioxide Anion Gap BUN Creatinine Creat Clearance w eGFR Random Glucose Lactic Acid Calcium Phosphorus Magnesium Total Bilirubin AST ALT Alkaline Phosphatase Creatine Kinase CK-MB (CK-2) Total Protein Albumin Prealbumin Vitamin B12 Serum Folate Urine Color Yellow Cancelled Urine Appearance Slcloudy Cancelled Urine pH 5.0 Cancelled Ur Specific [place] 1.025 Cancelled Urine Protein Negative Cancelled Urine Glucose (UA) Negative Cancelled Urine Ketones Negative Cancelled Urine Blood Negative Cancelled Urine Nitrite Negative Cancelled Urine Bilirubin Negative Cancelled Urine Urobilinogen Negative Cancelled Ur Leukocyte Esterase Negative Cancelled Urine Osmolality 879 Ur Random Sodium Influenza A (Rapid) Influenza B (Rapid) Blood Type Antibody Screen 07/08/18 07/08/18 07/08/18 02:35 06:30 06:30 WBC 5.9 RBC 4.99 Hgb 13.4 Hct 44.2 MCV 88.6 MCH 26.9 MCHC 30.4 L RDW 17.4 H Plt Count 57 L MPV 12.3 H Absolute Neuts (auto) 4.3 Neutrophils % 72.0 Lymphocytes % 19.7 D Monocytes % 7.4 Eosinophils % 0.4 D Basophils % 0.5 Nucleated RBC % 0 PT with INR INR PTT (Actin FS) VBG pH POC VBG pCO2 POC VBG pO2 Mixed VBG HCO3 Sodium 168 H* 167 H* Potassium 3.6 3.8 Chloride 132 H 131 H Carbon Dioxide 33 H 28 Anion Gap 3 L 7 L BUN 39 H 36 H Creatinine 1.0 0.8 Creat Clearance w eGFR 52.33 > 60 Random Glucose 99 89 Lactic Acid Calcium 8.5 8.1 L Phosphorus 2.8 Magnesium 2.4 Total Bilirubin 0.7 AST 16 ALT 19 Alkaline Phosphatase 96 Creatine Kinase CK-MB (CK-2) Total Protein 5.1 L Albumin 2.6 L Prealbumin 14.2 L Vitamin B12 570 Serum Folate 65 H Urine Color Urine Appearance Urine pH Ur Specific [place] Urine Protein Urine Glucose (UA) Urine Ketones Urine Blood Urine Nitrite Urine Bilirubin Urine Urobilinogen Ur Leukocyte Esterase Urine Osmolality Ur Random Sodium Influenza A (Rapid) Influenza B (Rapid) Blood Type Antibody Screen 07/08/18 07/08/18 06:30 06:30 WBC RBC Hgb Hct MCV MCH MCHC RDW Plt Count MPV Absolute Neuts (auto) Neutrophils % Lymphocytes % Monocytes % Eosinophils % Basophils % Nucleated RBC % PT with INR INR PTT (Actin FS) VBG pH POC VBG pCO2 POC VBG pO2 Mixed VBG HCO3 Sodium Potassium Chloride Carbon Dioxide Anion Gap BUN Creatinine Creat Clearance w eGFR Random Glucose Lactic Acid Calcium Phosphorus Magnesium Total Bilirubin AST ALT Alkaline Phosphatase Creatine Kinase CK-MB (CK-2) Total Protein Albumin Prealbumin Cancelled Vitamin B12 Cancelled Serum Folate Urine Color Urine Appearance Urine pH Ur Specific [place] Urine Protein Urine Glucose (UA) Urine Ketones Urine Blood Urine Nitrite Urine Bilirubin Urine Urobilinogen Ur Leukocyte Esterase Urine Osmolality Ur Random Sodium Influenza A (Rapid) Influenza B (Rapid) Blood Type Antibody Screen Active Medications Generic Name Dose Route Start Last Admin Trade Name Rona PRN Reason Stop Dose Admin Folic Acid 1 mg 07/08/18 10:00 Folic Acid - PO DAILY GLORY Dextrose 1,000 mls @ 30 mls/hr 07/08/18 03:58 07/08/18 04:10 D5w - IV 30 mls/hr ASDIR GLORY Administration Levothyroxine Sodium 50 mcg 07/08/18 07:00 07/08/18 06:15 Synthroid - PO Not Given DAILY@0700 GLORY Nystatin 500,000 units 07/08/18 06:00 07/08/18 06:15 Nystatin Oral Suspension - PO Not Given Q6HPO GLORY Pantoprazole Sodium 40 mg 07/08/18 10:00 Protonix Iv IVPUSH DAILY [facility] ASSESSMENT/PLAN: Patient is an 88 year old female with past medical history of severe dementia, baseline bedbound and minimally verbal, HTN, recurrent UTI, constipation, hypothyroidism, COPD?, protein-calorie malnutrition, DNR/DNI, BIBEMS for AMS x1d and decreased PO x 5 days. # Acute toxic metabolic encephalopathy likely secondary to severe hypernatremia -Improving Patient severely dehydrated on admission. Na 172 on admission ---> 168-->167- ->163 . Free water deficits is 3.2 L. Continue IV D5W increased to 42 mls/hr Head CT negative for any acute pathology Patient too weak for swallow eval. To be done once following commands Fall precautions NPO Oral care # Thrombocytopenia Platelet count 60--> 57 Hx of thromobocytopenia since 03/17 Will monitor. Not on ac # Protein calorie malnutrition Patient is cachectic, BMI of 18. Once more alert, will do a swallow eval and encourage PO intake. # Hypothyroidism Changed PO to IV Synthroid 25 mcg . # Oral thrush: Nystatin # Severe Dementia-worsening # FEN D5W @ 42 mls/hr Electrolytes to be repeated in AM NPO # Prophylaxis For DVT: On SCDs FOr GI: IV Protonix 40 daily # Code Status: DNR/DNI (spoke with the patient's son who is at bed side. Wants to speak with his siblings about goals of care. Talked about [facility] for Hospice. # Dispo: Admitted in Med. Surg. Plan of care explained to the patients son. He verbalized understanding. Case discussed with Dr. Hoyt. Visit type - Emergency Visit Emergency Visit: Yes ED Registration Date: 07/08/18 Care time: The patient presented to the Emergency Department on the above date and was hospitalized for further evaluation of their emergent condition. - New Patient This patient is new to me today: Yes Date on this admission: 07/08/18 - Critical Care Critical Care patient: No - Discharge Referral Referred to [facility] Med P.C.: No
--- NOTE | 2018-07-08 10:58 | EKG ---
Test Reason : Blood Pressure : / mmHG Vent. Rate : 083 BPM Atrial Rate : 083 BPM P-R Int : 148 ms QRS Dur : 074 ms QT Int : 402 ms P-R-T Axes : 067 -14 076 degrees QTc Int : 472 ms POOR DATA QUALITY, INTERPRETATION MAY BE ADVERSELY AFFECTED NORMAL SINUS RHYTHM ABNORMAL ECG WHEN COMPARED WITH ECG OF 17-MAR-2018 09:38, VENT. RATE HAS INCREASED BY 27 BPM NON-SPECIFIC CHANGE IN ST SEGMENT IN ANTERIOR LEADS T WAVE INVERSION NOW EVIDENT IN ANTERIOR LEADS QT HAS LENGTHENED Confirmed by PEYMAN SALEEM, SUZANNE ([id number]) on 07/08/2018 10:57:59 AM Referred By: Confirmed By:SUZANNE MORLEY MD
--- NOTE | 2018-07-08 11:22 | PN ---
Teaching Attending Note Name of Resident: Yessy Chacko ATTENDING PHYSICIAN STATEMENT I saw and evaluated the patient. I reviewed the resident's note and discussed the case with the resident. I agree with the resident's findings and plan as documented. SUBJECTIVE: Unable to obtain, patient obtunded OBJECTIVE: Last Vital Signs Temp Pulse Resp BP Pulse Ox 36.6 C 75 18 122/66 98 07/08/18 14:36 07/08/18 14:36 07/08/18 14:36 07/08/18 14:36 07/08/18 04:22 Gen: thin, obtunded Pulm: ctab w/o w/r/r CV: rrr w/o m/r/g Abd: +bs, s/nt/nd Ext: no c/c/e CBC, BMP 07/08/18 06:30 07/08/18 13:06 ASSESSMENT AND PLAN: Problem List - Problems (1) Hypernatremia Assessment/Plan: -secondary to dehydration from poor po intake -case d/w Dr Trujillo -increase D5W -monitor Na Code(s): E87.0 - HYPEROSMOLALITY AND HYPERNATREMIA (2) Severe protein-calorie malnutrition Assessment/Plan: -speech consult placed -suspect end stage dementia -palliative consult placed, would benefit from [place] Code(s): E43 - UNSPECIFIED SEVERE PROTEIN-CALORIE MALNUTRITION (3) Dementia Assessment/Plan: -end stage Code(s): F03.90 - UNSPECIFIED DEMENTIA WITHOUT BEHAVIORAL DISTURBANCE Qualifiers: Dementia type: unspecified type Dementia behavioral disturbance: without behavioral disturbance Qualified Code(s): F03.90 - Unspecified dementia without behavioral disturbance (4) HTN (hypertension) Assessment/Plan: -controlled -does not need tight blood pressure control Code(s): I10 - ESSENTIAL (PRIMARY) HYPERTENSION (5) Hypothyroidism Assessment/Plan: -continue IV levothyroxine at this time Code(s): E03.9 - HYPOTHYROIDISM, UNSPECIFIED
[2018-07-08] MEDS ORDERED: PT OWN MED DRAWER 7, Y5N ONE ×3 (11:28→12:39)
[2018-07-08] MEDS: PANTOPRAZOLE SODIUM 40 MG VIAL IVPUSH SCH (11:31)
[2018-07-08] MEDS: FOLIC ACID 1 MG TABLET (FP) PO SCH (11:31)
[2018-07-08] MEDS: LEVOTHYROXINE SODIUM 100 MCG VIAL IVPUSH SCH (12:54)
--- NOTE | 2018-07-08 13:17 | CONSULT ---
Consult Consult Specialty:: Nephrology Reason for Consultation:: hypernatremia - History of Present Illness Chief Complaint: sent in for lethargy and decreased PO intake. History of Present Illness: Pt is an 88 year old female with pmhx of dementia, HTN, UTI, hypothyroidism, and malnutrition who was sent in for decreased PO intake and lethargy. She has not been eating or drinking for days. She is unable to give history. I was called to evaluate her as she was found to be hypernatremic. She was given fluids and her sodium began to improve. She however remains lethargic and is unable to give history. - History Source History Provided By: Medical Record - Past Medical History [employer]: Yes: Dementia Cardio/Vascular: Yes: HTN Endocrine: Yes: Hypothyroidism - Past Surgical History Past Surgical History: Yes: None - Alcohol/Substance Use Hx Alcohol Use: No History of Substance Use: reports: None - Smoking History Smoking history: Unknown if ever smoked Have you smoked in the past 12 months: No Aproximately how many cigarettes per day: 0 - Social History ADL: Support Services History of Recent Travel: No Home Medications - Allergies Allergies/Adverse Reactions: Allergies Allergy/AdvReac Type Severity Reaction Status Date / Time No Known Allergies Allergy Verified 07/07/18 20:11 - Home Medications Home Medications: Ambulatory Orders Levothyroxine [Synthroid -] 50 mcg PO DAILY 06/21/14 Folic Acid 1 tablet PO DAILY 03/16/18 Pantoprazole Sodium 30 mg PO DAILY 03/16/18 Family Disease History - Family Disease History Family History: Unable to Obtain Review of Systems Unable to obtain ROS, reason: pt lethargic Findings/Remarks: pt lethargic and not verbal Physical Exam Vital Signs: Vital Signs Temperature 97.8 F 07/08/18 10:58 Pulse Rate 75 07/08/18 10:58 Respiratory Rate 18 07/08/18 10:58 Blood Pressure 126/74 07/08/18 10:58 O2 Sat by Pulse Oximetry (%) 98 07/08/18 04:22 Constitutional: Yes: Calm HENT: Yes: Atraumatic Cardiovascular: Yes: S1, S2 Respiratory: Yes: CTA Bilaterally Gastrointestinal: Yes: Soft Renal/: Yes: Incontinence Musculoskeletal: Yes: Muscle Weakness Edema: No Neurological: Yes: Lethargy Labs: CBC, BMP 07/08/18 06:30 07/08/18 06:30 Laboratory Tests 07/07/18 07/07/18 07/08/18 20:30 21:23 02:35 WBC Hgb Sodium 172 H* Urine Protein Negative Urine Blood Negative Ur Leukocyte Esterase Negative Influenza A (Rapid) Negative Influenza B (Rapid) Negative 07/08/18 07/08/18 07/08/18 02:35 06:30 06:30 WBC 5.9 Hgb 13.4 Sodium 168 H* 167 H* Urine Protein Urine Blood Ur Leukocyte Esterase Influenza A (Rapid) Influenza B (Rapid) Imaging - Results Chest X-ray: Report Reviewed X-ray: Report Reviewed Problem List - Problems (1) Dementia Code(s): F03.90 - UNSPECIFIED DEMENTIA WITHOUT BEHAVIORAL DISTURBANCE Qualifiers: Dementia type: unspecified type Dementia behavioral disturbance: without behavioral disturbance Qualified Code(s): F03.90 - Unspecified dementia without behavioral disturbance (2) Failure to thrive Code(s): [id number] - Qualifiers: Failure to thrive age range: in adult Qualified Code(s): R62.7 - Adult failure to thrive (3) Hypernatremia Code(s): E87.0 - HYPEROSMOLALITY AND HYPERNATREMIA Assessment/Plan Current Medications Generic Name Dose Route Start Last Admin Trade Name Freq PRN Reason Stop Dose Admin Folic Acid 1 mg 07/08/18 10:00 07/08/18 11:31 Folic Acid - PO Not Given DAILY GLORY Dextrose 1,000 mls @ 30 mls/hr 07/08/18 03:58 07/08/18 04:10 D5w - IV 30 mls/hr ASDIR GLORY Administration Levothyroxine Sodium 25 mcg 07/08/18 10:30 07/08/18 12:54 Synthroid Injection - IVPUSH 25 mcg DAILY GLORY Administration Nystatin 500,000 units 07/08/18 06:00 07/08/18 11:32 Nystatin Oral Suspension - PO 500,000 units Q6HPO GLORY Administration Pantoprazole Sodium 40 mg 07/08/18 10:00 07/08/18 11:31 Protonix Iv IVPUSH 40 mg DAILY GLORY Administration Impression 1. hypernatremia 2. dementia 3. hypothyroidism 4. failure to thrive 5. hx UTI Plan - pt has a free water deficit of about 3.2 liters - cont d5w, can increase rate for 42 - cont to monitor sodium - avoid a rapid correction of sodium of greater than 8 to 10 in 24 hours - monitor mental status - will follow Dr Trujillo
[2018-07-08 14:39] LABS: ANION GAP 0 MMOL/L (8-16); BLOOD UREA NITROGEN 37 mg/dL (7-18); CHLORIDE 132 mmol/L (98-107); CO2 31 mmol/L (21-32); CREATININE 0.7 mg/dL (0.55-1.3); GLUCOSE,RANDOM 85 mg/dL (74-106); POTASSIUM 3.6 mmol/L (3.5-5.1)
[2018-07-08] MEDS: DEXTROSE 5%-WATER - 1,000 ML IV SCH (15:09)
[2018-07-08 15:12] LABS: SODIUM 163 mmol/L (136-145)
[2018-07-08 22:35] LABS: ANION GAP 5 MMOL/L (8-16); BLOOD UREA NITROGEN 33 mg/dL (7-18); CALCIUM 7.8 mg/dL (8.5-10.1); CHLORIDE 128 mmol/L (98-107); CO2 29 mmol/L (21-32); CREATININE 0.7 mg/dL (0.55-1.3); GLUCOSE,RANDOM 87 mg/dL (74-106); POTASSIUM 3.4 mmol/L (3.5-5.1)
[2018-07-08 22:37] LABS: SODIUM 162 mmol/L (136-145)
[2018-07-09] MEDS: DEXTROSE 5%-WATER - 1,000 ML IV SCH (02:34)
[2018-07-09] MEDS: NYSTATIN 500,000 UNITS/5 ML SUSPENSION PO SCH ×3 (05:21→18:03)
[2018-07-09 08:00] LABS: ALBUMIN 2.4 g/dl (3.4-5.0); ALK PHOS 87 U/L (45-117); ANION GAP 2 MMOL/L (8-16); BILIRUBIN,TOTAL 0.7 mg/dL (0.2-1); BLOOD UREA NITROGEN 29 mg/dL (7-18); CHLORIDE 126 mmol/L (98-107); CO2 28 mmol/L (21-32); CREATININE 0.5 mg/dL (0.55-1.3); GLUCOSE,RANDOM 96 mg/dL (74-106); POTASSIUM 3.3 mmol/L (3.5-5.1); SGOT/AST 17 U/L (15-37); SGPT/ALT 16 U/L (13-61); SODIUM 157 mmol/L (136-145); TOT PROT 4.8 g/dl (6.4-8.2)
--- NOTE | 2018-07-09 08:31 | PN ---
Progress Note (short form) - Note Progress Note: Dr. Hoyt to document today. Hypernatremia and acute dehydration improving but lethargy continues. I still feel [facility] is the best plan for post hospital care. Although she was denied recertification by hospice over 2 months ago she is clearly suffering from severe dementia, repeat hospitalization, weight loss and nearly no words being spoken and requires all ADL to be provided for her.
[2018-07-09] MEDS ORDERED: PT OWN MED DRAWER 7, Y5N ONE (09:19)
--- NOTE | 2018-07-09 09:32 | PN ---
Physical Exam: SUBJECTIVE: Patient seen and examined at bed side this morning. Eyes closed, not following commands. OBJECTIVE: Vital Signs Period Temp Pulse Resp BP Sys/Chinchilla Pulse Ox Last 24 Hr 97.5 F-97.9 F 68-75 18-18 109-134/53-81 97-98 GENERAL: Elderly female, cachectic, is sleeping, in no acute distress. EYES: No pallor or icterus. ENT: Dry mucous membranes, oral thrush. NECK: Supple. LUNGS: Decreased breath sounds bilaterally, no crackles or wheeze. HEART: Regular rate and rhythm, S1, S2 with systolic murmur. ABDOMEN: Soft, nontender, no organomegaly, BS +. EXTREMITIES: 2+ pulses, warm, well-perfused, no edema. NEUROLOGICAL: No facial droop, non verbal, not following commands. PSYCH: Poor eye contact. SKIN:Dry skin. Laboratory Results - last 24 hr 07/08/18 07/08/18 07/09/18 13:06 21:15 06:30 Sodium 163 H* 162 H* 157 H Potassium 3.6 3.4 L 3.3 L Chloride 132 H 128 H 126 H Carbon Dioxide 31 29 28 Anion Gap 0 L 5 L 2 L BUN 37 H 33 H 29 H Creatinine 0.7 0.7 0.5 L Creat Clearance w eGFR > 60 > 60 > 60 Random Glucose 85 87 96 Calcium 8.0 L 7.8 L 8.0 L Total Bilirubin 0.7 AST 17 ALT 16 Alkaline Phosphatase 87 Total Protein 4.8 L Albumin 2.4 L TSH 0.02 L Free T4 1.29 Active Medications Generic Name Dose Route Start Last Admin Trade Name Goodq PRN Reason Stop Dose Admin Folic Acid 1 mg 07/08/18 10:00 07/08/18 11:31 Folic Acid - PO Not Given DAILY GLORY Dextrose 1,000 mls @ 42 mls/hr 07/08/18 13:24 07/09/18 02:34 D5w - IV 42 mls/hr ASDIR GLORY Administration Levothyroxine Sodium 25 mcg 07/08/18 10:30 07/08/18 12:54 Synthroid Injection - IVPUSH 25 mcg DAILY GLORY Administration Nystatin 500,000 units 07/08/18 06:00 07/09/18 05:21 Nystatin Oral Suspension - PO 500,000 units Q6HPO GLORY Administration Pantoprazole Sodium 40 mg 07/08/18 10:00 07/08/18 11:31 Protonix Iv IVPUSH 40 mg DAILY GLORY Administration ASSESSMENT/PLAN: Patient is an 88 year old female with past medical history of severe dementia, baseline bedbound and minimally verbal, HTN, recurrent UTI, constipation, hypothyroidism, COPD?, protein-calorie malnutrition, DNR/DNI, BIBEMS for AMS x1d and decreased PO x 5 days. # Acute toxic metabolic encephalopathy likely secondary to severe hypernatremia -Improving Patient severely dehydrated on admission. Na 172 on admission--> 168-->167--> 163 --> 157. IV D5W increased to 42 mls/hr Head CT negative for any acute pathology Swallow eval today Fall precautions NPO Oral care # Hypokalemia likely secondary to poor oral intake k- 3.3, potassium added in D5W # Thrombocytopenia Hx of thromobocytopenia since 03/17 Will monitor. Not on ac # Protein calorie malnutrition Patient is cachectic, BMI of 18. Swallow eval today. # Hypothyroidism Changed PO to IV Synthroid 25 mcg . # Oral thrush: Nystatin # Severe Dementia-worsening # FEN D5W @ 42 mls/hr + 20meQ K Electrolytes to be repeated in AM NPO # Prophylaxis For DVT: On SCDs FOr GI: IV Protonix 40 daily # Code Status: DNR/DNI (spoke with the patient's son 07/08/18. Wants to speak with his siblings about goals of care. = # Dispo: Admitted in Med. Surg. Plan of care explained to the patients son. He verbalized understanding. Case discussed with Dr. Hoyt. Visit type - Emergency Visit Emergency Visit: Yes ED Registration Date: 07/08/18 Care time: The patient presented to the Emergency Department on the above date and was hospitalized for further evaluation of their emergent condition. - New Patient This patient is new to me today: No - Critical Care Critical Care patient: No - Discharge Referral Referred to [facility] Med P.C.: No
[2018-07-09] MEDS: PANTOPRAZOLE SODIUM 40 MG VIAL IVPUSH SCH (09:40)
[2018-07-09] MEDS: FOLIC ACID 1 MG TABLET (FP) PO SCH (09:41)
[2018-07-09] MEDS: LEVOTHYROXINE SODIUM 100 MCG VIAL IVPUSH SCH ×3 (10:42→12:54)
--- NOTE | 2018-07-09 11:17 | PN ---
Teaching Attending Note Name of Resident: Yessy Chacko ATTENDING PHYSICIAN STATEMENT I saw and evaluated the patient. I reviewed the resident's note and discussed the case with the resident. I agree with the resident's findings and plan as documented. SUBJECTIVE: Unable to obtain OBJECTIVE: Last Vital Signs Temp Pulse Resp BP Pulse Ox 36.1 C L 77 20 120/77 97 07/09/18 10:47 07/09/18 10:47 07/09/18 10:47 07/09/18 10:47 07/08/18 21:00 Gen: obtunded Pulm: ctab w/o w/r/r CV: rrr w/o m/r/g Ab: +bs, s/nt/nd Ext: no c/c/e CBC, BMP 07/08/18 06:30 07/09/18 06:30 ASSESSMENT AND PLAN: (1) Hypernatremia Assessment/Plan: -secondary to dehydration from poor po intake -case d/w Dr Trujillo -continue D5W -add potassium for replacement -improving Code(s): E87.0 - HYPEROSMOLALITY AND HYPERNATREMIA (2) Severe protein-calorie malnutrition Assessment/Plan: -speech consult placed -suspect end stage dementia -denies inpatient hospice by [facility] -if does not improve or does not increase po intake, consider stopping IVF and possible inpatient hospice here Code(s): E43 - UNSPECIFIED SEVERE PROTEIN-CALORIE MALNUTRITION (3) Dementia Assessment/Plan: -end stage Code(s): F03.90 - UNSPECIFIED DEMENTIA WITHOUT BEHAVIORAL DISTURBANCE Qualifiers: Dementia type: unspecified type Dementia behavioral disturbance: without behavioral disturbance Qualified Code(s): F03.90 - Unspecified dementia without behavioral disturbance (4) HTN (hypertension) Assessment/Plan: -controlled -does not need tight blood pressure control Code(s): I10 - ESSENTIAL (PRIMARY) HYPERTENSION (5) Hypothyroidism Assessment/Plan: -continue IV levothyroxine at this time Code(s): E03.9 - HYPOTHYROIDISM, UNSPECIFIED Problem List - Problems (1) Hypernatremia Code(s): E87.0 - HYPEROSMOLALITY AND HYPERNATREMIA (2) Severe protein-calorie malnutrition Code(s): E43 - UNSPECIFIED SEVERE PROTEIN-CALORIE MALNUTRITION (3) Dementia Code(s): F03.90 - UNSPECIFIED DEMENTIA WITHOUT BEHAVIORAL DISTURBANCE Qualifiers: Dementia type: unspecified type Dementia behavioral disturbance: without behavioral disturbance Qualified Code(s): F03.90 - Unspecified dementia without behavioral disturbance (4) HTN (hypertension) Code(s): I10 - ESSENTIAL (PRIMARY) HYPERTENSION (5) Hypothyroidism Code(s): E03.9 - HYPOTHYROIDISM, UNSPECIFIED
[2018-07-09] MEDS: POTASSIUM CHLORIDE 20 MEQ in DEXTROSE 5%-WATER - 1,000 ML IVPB SCH (12:56)
[2018-07-09 14:01] VITALS: BMI 18.1
--- NOTE | 2018-07-09 14:48 | PN ---
Progress Note, Physician History of Present Illness: Pt seen and examined at bedside. She is more awake and interactive today. She remains confused. - Current Medication List Current Medications: Active Medications Folic Acid (Folic Acid -) 1 mg PO DAILY [facility] Last Admin: 07/09/18 09:41 Dose: Not Given Potassium Chloride 20 meq/ (Dextrose) 1,010 mls @ 50 mls/hr IVPB Q20H [facility] Last Admin: 07/09/18 12:56 Dose: 50 mls/hr Levothyroxine Sodium (Synthroid Injection -) 25 mcg IVPUSH DAILY [facility] Last Admin: 07/09/18 12:54 Dose: 25 mcg Nystatin (Nystatin Oral Suspension -) 500,000 units PO Q6HPO [facility] Last Admin: 07/09/18 12:40 Dose: 500,000 units Pantoprazole Sodium (Protonix Iv) 40 mg IVPUSH DAILY [facility] Last Admin: 07/09/18 09:40 Dose: 40 mg - Objective Vital Signs: Vital Signs Temperature 98.1 F 07/09/18 14:30 Pulse Rate 90 07/09/18 14:30 Respiratory Rate 18 07/09/18 14:30 Blood Pressure 131/73 07/09/18 14:30 O2 Sat by Pulse Oximetry (%) 97 07/08/18 21:00 Constitutional: Yes: Calm Eyes: Yes: Conjunctiva Clear HENT: Yes: Atraumatic Neck: Yes: Supple Cardiovascular: Yes: S1, S2 Respiratory: Yes: CTA Bilaterally, On Nasal O2 Gastrointestinal: Yes: Soft Genitourinary: Yes: Incontinence Edema: No Neurological: Yes: Confusion Labs: CBC, BMP 07/08/18 06:30 07/09/18 06:30 INR, PTT INR 1.12 (0.83-1.09) H 07/07/18 20:30 Problem List - Problems (1) Dementia Code(s): F03.90 - UNSPECIFIED DEMENTIA WITHOUT BEHAVIORAL DISTURBANCE Qualifiers: Dementia type: unspecified type Dementia behavioral disturbance: without behavioral disturbance Qualified Code(s): F03.90 - Unspecified dementia without behavioral disturbance (2) Failure to thrive Code(s): JPB5588 - Qualifiers: Failure to thrive age range: in adult Qualified Code(s): R62.7 - Adult failure to thrive (3) Hypernatremia Code(s): E87.0 - HYPEROSMOLALITY AND HYPERNATREMIA Assessment/Plan Current Medications Generic Name Dose Route Start Last Admin Trade Name Rona PRN Reason Stop Dose Admin Folic Acid 1 mg 07/08/18 10:00 07/09/18 09:41 Folic Acid - PO Not Given DAILY [facility] Potassium Chloride 20 meq/ 1,010 mls @ 50 mls/hr 07/09/18 09:32 07/09/18 12: 56 Dextrose IVPB 50 mls/hr Q20H [facility] Administration Levothyroxine Sodium 25 mcg 07/08/18 10:30 07/09/18 12:54 Synthroid Injection - IVPUSH 25 mcg DAILY [facility] Administration Nystatin 500,000 units 07/08/18 06:00 07/09/18 12:40 Nystatin Oral Suspension - PO 500,000 units Q6HPO [facility] Administration Pantoprazole Sodium 40 mg 07/08/18 10:00 07/09/18 09:40 Protonix Iv IVPUSH 40 mg DAILY [facility] Administration Impression 1. hypernatremia 2. dementia 3. hypothyroidism 4. failure to thrive 5. hx UTI 6. hypokalemia Plan - cont with d5w, will increase rate and add potassium - replace potassium - monitor sodium levels - her mental status is improving - avoid a rapid correction of sodium of greater than 8 to 10 in 24 hours - will follow Dr Trujillo
[2018-07-09] MEDS: KCL 10 MEQ IVPB 10 MEQ/100 ML INFUS.BAG IVPB SCH ×2 (15:53→18:03)
--- NOTE | 2018-07-09 17:46 | CONSULT ---
Admitting History and Physical - Past Medical History MUSIC COPYIST: Yes: Dementia Cardiovascular: Yes: HTN Endocrine: Yes: Hypothyroidism - Past Surgical History Past Surgical History: Yes: None - Advance Directives Advance Directives: Yes: Health Care Proxy, DNR - Smoking History Smoking history: Unknown if ever smoked Have you smoked in the past 12 months: No Aproximately how many cigarettes per day: 0 - Alcohol/Substance Use Hx Alcohol Use: No History of Substance Use: reports: None - Social History ADL: Support Services History of Recent Travel: No History - Admission Reason For Visit: DEMENTIA FAILURE TO THRIVE HYPERNATREMIA - Hearing Hearing Aide: No With Patient: No Speech Evaluation - Communication Primary Language: FRISIAN Communication: Yes: Aphasia, Non-Communicable Oral Expression Ability: Yes: Non-Verbal (but vocal) - Speech Production Dysarthria: Yes: Flaccid Able to Make Needs Known: Yes: Severely Impaired Intelligibility: Yes: Severely Impaired - Speech Characteristics Voice Loudness: Severely Soft/Quiet Voice Pitch: Yes: Limited Variation Voice Phonatory-based Quality: Yes: Breathy, Quivering, Tremor Speech Pattern: Impaired Speech Clarity: < 100% Nasal Resonance: Normal Articulation: Yes: Precise Voice, Other Observations: Yes: Mouth Breathing Voice Comment: no speech during this session. Vocal - Language/Auditory Comprehension Follows: Yes: 1 Stage Simple Commands (reduced) Observation: Able to respond to yes/no queries: No, Yes/No Confusion: Yes, Comprehends Conversational Speech: No, Benefits from Slow Speech: Yes, Benefits from Repetiton: Yes, Benefits from Increased Volume of Speech: No - Language/Verbal Expression Aphasia: Yes: Paraphrasic Errors, Neologisms Able to Respond to Simple Queries: Yes: Moderately Impaired Able to Communicate Wants and Needs: Yes: Severely Impaired Functional Communication Status: Yes: Severely Impaired Aware of Errors: No Attempts to Correct Errors: No Use of Gestures: Yes Written Expression: not examined Oral Expression: reduced; non-verbal Reading Comprehension: not examined Calculations: not examined - 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 Memory: Yes: Severely Impaired Short Term Memory: Yes: Severely Impaired - Swallow Evaluation/Bedside Assessment Current Nutritional Intake: NPO Oral Secretions: Yes: Halitosis, Dryness, Tongue Coated Tracheostomy Present: No Patient on Ventilator: No Dentition: Yes: Edentulous Facial Symmetry at Rest: Symmetrical Facial Symmetry on Retraction: Symmetrical Facial Movement: Controlled Sensation: Normal Facial Comment: Appears WNL for swallowing purposes Jaw Position: Open at Rest Against Resistance Opening: Weak Against Resistance Closing: Weak Lips, Comment: Appears WNL for swallowing purposes Lingual Movement: Reduced Tip Depression, Reduced Tip Elevation, Reduced Lt Lateralization, Reduced Rt Lateralization, Reduced Protrusion Lingual Speed of Movement: Reduced Lingual Movement Strgth Against Opposition: Reduced Lingual Comment: Appears WNL for swallowing purposes Soft Palate Description: Normal Color Hard Palate Description: Normal Color Gag Reflex: Strong Bite Reflex: Present Velopharyngeal Movement: Reduced Elevation Laryngeal Elevation: Impaired Laryngeal Movement: Labored,delay initiation Needs Assistance: Yes Rate of Intake: Slow/Holding Bolus Size: Small Labial Seal: WFL Chewing: Impaired Oral Prep Time: Increased A-P Transit: WFL Pocketing: None Odynophagia: Oral (secondary to edentulous status), Pharyngeal (Mild delay 2-3 seconds) Coughing/Throat Clear: No Change in Voice: No Other Findings/Remarks: 88 yo female seen at bedside for swallow eval to r/o dysphagia. Pt is nonverbal , A&Ox1 somewhat cooperative. Medical HX includes: Dementia, FTT,hypernatremia , COPD? UTI with DNR/DNI in place. Nasal canula in place. Current diet NPO Comfort care in place. Pt given po trials of puree with total assistance revealed reduced acceptance, adequate bolus control and transport, pharyngeal swallow is mildly delayed 2-3 second with no cough. Pt given po trials of thin and thicken liquids via spoon and cup total assistance revealed reduced acceptance, adequate bolus control and transport, pharyngeal swallow is mildly delayed 2-3 second with no cough. Pt would only receive thin liquids via spoon but did take thicken liquids by cup. Recommendations - Speech Evaluation, Impression/Plan Impression: 88 year old female presents with mild to moderate annia-pharyngeal dysphagia for pureed solids and liquids. No evidence of aspiration at bedside with thin and thicken liquids Nursing Home Goals: tolerate the least restrictive diet without s/s of aspiration Short Term Goals: tolerate puree and honey thicken liquids diet without s/s of aspiration - Dysphagia Impressions/Plan Dysphagia Impressions: Moderate Impairment, Risk of Aspiration, Ongoing Evaluation *Silent aspiration: cannot be R/O at bedside Dysphagia Treatment Plan: Trial Feedings (puree and honey thicken liquids via cup and /or spoon), Safe Rate, 1/2 tsp. at a time, Elevate HOB during feed Dysphagia Evaluation Summary: Pt is able to tolerate puree and thicken liquids at bedside with out s/s aspiration. Trial puree and honey thicken liquids as tolerated. Observe standard aspiration precautions. Results given verbally to set up and charger and to pcp via chart. 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 - Recommendations Diet Consistency: Dysphagia Pureed Medication Administration: Crushed with applesauce Liquids: Honey Thick
[2018-07-10] MEDS: NYSTATIN 500,000 UNITS/5 ML SUSPENSION PO SCH ×5 (00:03→23:32)
[2018-07-10] MEDS ORDERED: PT OWN MED DRAWER 7, Y5N ONE ×4 (04:56→10:39)
[2018-07-10] MEDS: POTASSIUM CHLORIDE 20 MEQ in DEXTROSE 5%-WATER - 1,000 ML IVPB SCH (06:18)
[2018-07-10 07:44] LABS: HEMATOCRIT 36.4 % (32.4-45.2); HEMOGLOBIN 11.2 GM/dL (10.7-15.3); MCH 27.2 pg (25.7-33.7); MCHC 30.8 g/dl (32.0-36.0); MEAN CELL VOLUME 88.3 fl (80-96); MEAN PLT VOLUME 11.8 fl (7.5-11.1); PLATELET COUNT 57 K/MM3 (134-434); RBC 4.13 M/mm3 (3.60-5.2); RDW 16.5 % (11.6-15.6); WHITE BLOOD COUNT 5.3 K/mm3 (4.0-10.0)
[2018-07-10 08:10] LABS: ANION GAP 5 MMOL/L (8-16); BLOOD UREA NITROGEN 22 mg/dL (7-18); CALCIUM 7.7 mg/dL (8.5-10.1); CHLORIDE 120 mmol/L (98-107); CO2 30 mmol/L (21-32); CREATININE 0.7 mg/dL (0.55-1.3); GLUCOSE,RANDOM 83 mg/dL (74-106); POTASSIUM 3.5 mmol/L (3.5-5.1); SODIUM 155 mmol/L (136-145)
--- NOTE | 2018-07-10 09:35 | PN ---
Progress Note (short form) - Note Progress Note: to document today. Na improving slowly and she seems to be able to tolerate some portions of her breakfast of. Yogurt and oatmeal with hand feeding by the aide which I witnessed. I understand that she was not accepted by [facility] and hospice is at this point not recertifying. I do think she qualifies on several of the usual hospice criteria for dementia and debility. I completely disagree that she has "run out " of her hospice days because there is no such rule if indeed the patient meets their listed criteria they can continue to be recertified.
[2018-07-10] MEDS: PANTOPRAZOLE SODIUM 40 MG VIAL IVPUSH SCH (11:13)
[2018-07-10] MEDS: LEVOTHYROXINE SODIUM 100 MCG VIAL IVPUSH SCH (11:13)
[2018-07-10] MEDS: FOLIC ACID 1 MG TABLET (FP) PO SCH (11:13)
--- NOTE | 2018-07-10 11:34 | PN ---
Physical Exam: SUBJECTIVE: Patient seen and examined at bedside. Nonverbal. No acute events. OBJECTIVE: Vital Signs Period Temp Pulse Resp BP Sys/Chinchilla Pulse Ox Last 24 Hr 97.4 F-98.5 F 64-90 18-18 121-142/64-90 96 GEN: frail appearing, nonverbal HEENT: NCAT, adentulous Neck: supple, no jvd Cardio: rrr, normal s1s2, no mrg Pulm: cta, no rales appreciated Abd: nondistended, soft, no guarding Ext: no edema Laboratory Results - last 24 hr 07/10/18 07/10/18 06:40 06:40 WBC 5.3 RBC 4.13 Hgb 11.2 Hct 36.4 D MCV 88.3 MCH 27.2 MCHC 30.8 L RDW 16.5 H Plt Count 57 L MPV 11.8 H Sodium 155 H Potassium 3.5 Chloride 120 H Carbon Dioxide 30 Anion Gap 5 L BUN 22 H Creatinine 0.7 Creat Clearance w eGFR > 60 Random Glucose 83 Calcium 7.7 L Active Medications Generic Name Dose Route Start Last Admin Trade Name Freq PRN Reason Stop Dose Admin Folic Acid 1 mg 07/08/18 10:00 07/10/18 11:13 Folic Acid - PO 1 mg DAILY [facility] Administration Levothyroxine Sodium 25 mcg 07/08/18 10:30 07/10/18 11:13 Synthroid Injection - IVPUSH 25 mcg DAILY [facility] Administration Nystatin 500,000 units 07/08/18 06:00 07/10/18 05:20 Nystatin Oral Suspension - PO 500,000 units Q6HPO [facility] Administration Pantoprazole Sodium 40 mg 07/08/18 10:00 07/10/18 11:13 Protonix Iv IVPUSH 40 mg DAILY [facility] Administration ASSESSMENT/PLAN: Pt is an 88 yo F with PMH dementia, HTN, UTI, hypothyroidism, and malnutrition who was sent to ED for lethargy and poor intake x 5 days. Nephrology was called because she was found to by profoundly hypernatremic. #Hypernatremia -likley 2/2 decreased PO intake. Associated hyperchloremia -Free water deficit initially 3.2 L -has been correcting slowly with IV fluids -rec continued D5W -monitor Na #Hypokalemia -responding to IV K supplementation -continue to replete as needed #HTN -BP well controlled at this time #Hypothyroid -c/w synthroid DNR/DNI Visit type - Emergency Visit Emergency Visit: No - New Patient This patient is new to me today: No - Critical Care Critical Care patient: No
--- NOTE | 2018-07-10 11:45 | PN ---
Teaching Attending Note Name of Resident: Saeed Ambrocio (Nephrology) ATTENDING PHYSICIAN STATEMENT I saw and evaluated the patient. I reviewed the resident's note and discussed the case with the resident. I agree with the resident's findings and plan as documented. Renal Pt seen and examined at bedside. She is starting to take on food. Current Medications Generic Name Dose Route Start Last Admin Trade Name Rona PRN Reason Stop Dose Admin Folic Acid 1 mg 07/08/18 10:00 07/10/18 11:13 Folic Acid - PO 1 mg DAILY [facility] Administration Levothyroxine Sodium 25 mcg 07/08/18 10:30 07/10/18 11:13 Synthroid Injection - IVPUSH 25 mcg DAILY [facility] Administration Nystatin 500,000 units 07/08/18 06:00 07/10/18 05:20 Nystatin Oral Suspension - PO 500,000 units Q6HPO [facility] Administration Pantoprazole Sodium 40 mg 07/08/18 10:00 07/10/18 11:13 Protonix Iv IVPUSH 40 mg DAILY [facility] Administration Last Vital Signs Temp Pulse Resp BP Pulse Ox 98.5 F 65 18 121/67 96 07/10/18 10:00 07/10/18 10:00 07/10/18 10:00 07/10/18 10:00 07/09/18 21:00 Laboratory Tests 07/10/18 06:40 Sodium 155 H Potassium 3.5 Creatinine 0.7 cardio s1s2 pulm clear GI soft ext neg edema neuro awake and confused Impression 1. hypernatremia 2. dementia 3. hypothyroidism 4. failure to thrive 5. hx UTI 6. hypokalemia Plan - sodium improving with fluids - cont d5w - pt on a feeding trial - discussed with medical team - GOC are unclear at this point - will follow Dr Trujillo Problem List - Problems (1) Dementia Code(s): F03.90 - UNSPECIFIED DEMENTIA WITHOUT BEHAVIORAL DISTURBANCE Qualifiers: Dementia type: unspecified type Dementia behavioral disturbance: without behavioral disturbance Qualified Code(s): F03.90 - Unspecified dementia without behavioral disturbance (2) Failure to thrive Code(s): [id number] - Qualifiers: Failure to thrive age range: in adult Qualified Code(s): R62.7 - Adult failure to thrive (3) Hypernatremia Code(s): E87.0 - HYPEROSMOLALITY AND HYPERNATREMIA
--- NOTE | 2018-07-10 15:32 | PN ---
Physical Exam: SUBJECTIVE: Patient seen and examined at bed side this morning. Looks much better than yesterday. Smiling, trying to talk but unable to understand. Following minimal commands. Yesterday tolerated Puree diet. No acute overnight events. OBJECTIVE: Vital Signs Period Temp Pulse Resp BP Sys/Chinchilla Pulse Ox Last 24 Hr 97.4 F-98.5 F 64-77 17-18 121-139/64-90 96-100 GENERAL: Elderly female, cachectic, is awake, alert, non verbal, in no acute distress. EYES: No pallor or icterus. ENT: Moist mucous membranes, oral thrush improving. NECK: Supple. LUNGS: Decreased breath sounds bilaterally, no crackles or wheeze. HEART: Regular rate and rhythm, S1, S2 with systolic murmur. ABDOMEN: Soft, nontender, no organomegaly, BS +. EXTREMITIES: 2+ pulses, warm, well-perfused, no edema. NEUROLOGICAL: No facial droop, non verbal, following minimal commands. PSYCH: Good eye contact today. SKIN:Dry skin. Laboratory Results - last 24 hr 07/10/18 07/10/18 06:40 06:40 WBC 5.3 RBC 4.13 Hgb 11.2 Hct 36.4 D MCV 88.3 MCH 27.2 MCHC 30.8 L RDW 16.5 H Plt Count 57 L MPV 11.8 H Sodium 155 H Potassium 3.5 Chloride 120 H Carbon Dioxide 30 Anion Gap 5 L BUN 22 H Creatinine 0.7 Creat Clearance w eGFR > 60 Random Glucose 83 Calcium 7.7 L Active Medications Generic Name Dose Route Start Last Admin Trade Name Goodq PRN Reason Stop Dose Admin Folic Acid 1 mg 07/08/18 10:00 07/10/18 11:13 Folic Acid - PO 1 mg DAILY [facility] Administration Levothyroxine Sodium 25 mcg 07/08/18 10:30 07/10/18 11:13 Synthroid Injection - IVPUSH 25 mcg DAILY [facility] Administration Nystatin 500,000 units 07/08/18 06:00 07/10/18 13:14 Nystatin Oral Suspension - PO 500,000 units Q6HPO [facility] Administration Pantoprazole Sodium 40 mg 07/08/18 10:00 07/10/18 11:13 Protonix Iv IVPUSH 40 mg DAILY [facility] Administration ASSESSMENT/PLAN: Patient is an 88 year old female with past medical history of severe dementia, baseline bedbound and minimally verbal, HTN, recurrent UTI, constipation, hypothyroidism, COPD?, protein-calorie malnutrition, DNR/DNI, BIBEMS for AMS x1d and decreased PO x 5 days. # Acute toxic metabolic encephalopathy likely secondary to severe hypernatremia -Improving Patient severely dehydrated on admission. Na 172 on admission--> 168-->167--> 163 --> 157-->155. Free water deficit 3.2 L Monitor off IV fluids for now since patient can tolerate PO, watch if hypernatremia improves. Check Na in the morning if it continues to rise, start on IVF. Head CT negative for any acute pathology Swallow eval done, recommends puree diet, patient tolerating well. Aspiration precautions Fall precautions Oral care # Hypokalemia likely secondary to poor oral intake-resolved. # Thrombocytopenia Hx of thromobocytopenia since 03/17. Platelet count 57 Will monitor. Not on ac # Protein calorie malnutrition Patient is cachectic, BMI of 18. Encourage PO intake. # Hypothyroidism Changed PO to IV Synthroid 25 mcg . # Oral thrush: Nystatin # Severe Dementia-worsening # FEN Not on IV fluids. Electrolytes to be repeated in AM Puree diet. # Prophylaxis For DVT: On SCDs FOr GI: IV Protonix 40 daily # Code Status: DNR/DNI (spoke with the patient's son 07/08/18. Wants to speak with his siblings about goals of care). Denied by [facility]. asbestos worker on board. Palliative care nurse on board. # Dispo: Admitted in Med. Surg. Plan of care explained to the patients son 07/09/18. He verbalized understanding. Case discussed with Dr. Hoyt. Visit type - Emergency Visit Emergency Visit: Yes ED Registration Date: 07/08/18 Care time: The patient presented to the Emergency Department on the above date and was hospitalized for further evaluation of their emergent condition. - New Patient This patient is new to me today: No - Critical Care Critical Care patient: No - Discharge Referral Referred to [facility] Med P.C.: No
--- NOTE | 2018-07-10 16:19 | PN ---
Teaching Attending Note Name of Resident: Yessy Chacko ATTENDING PHYSICIAN STATEMENT I saw and evaluated the patient. I reviewed the resident's note and discussed the case with the resident. I agree with the resident's findings and plan as documented. SUBJECTIVE: Patient awake but non-verbal OBJECTIVE: Last Vital Signs Temp Pulse Resp BP Pulse Ox 36.9 C 77 17 139/79 100 07/10/18 14:58 07/10/18 14:58 07/10/18 14:58 07/10/18 14:58 07/10/18 10:00 Gen: nad, thin Pulm: ctab w/o w/r/r CV: rrr w/o m/r/g Abd: +bs, s/nt/nd Ext: no c/c/e CBC, BMP 07/10/18 06:40 07/10/18 06:40 ASSESSMENT AND PLAN: (1) Hypernatremia Assessment/Plan: -much improved on D5W -now taking po -will stop IVF -monitor to see if can maintain hydration with po intake Code(s): E87.0 - HYPEROSMOLALITY AND HYPERNATREMIA (2) Severe protein-calorie malnutrition Assessment/Plan: -continue current diet Code(s): E43 - UNSPECIFIED SEVERE PROTEIN-CALORIE MALNUTRITION (3) Dementia Assessment/Plan: -end stage Code(s): F03.90 - UNSPECIFIED DEMENTIA WITHOUT BEHAVIORAL DISTURBANCE Qualifiers: Dementia type: unspecified type Dementia behavioral disturbance: without behavioral disturbance Qualified Code(s): F03.90 - Unspecified dementia without behavioral disturbance (4) HTN (hypertension) Assessment/Plan: -controlled -does not need tight blood pressure control Code(s): I10 - ESSENTIAL (PRIMARY) HYPERTENSION (5) Hypothyroidism Assessment/Plan: -change to oral synthroid Code(s): E03.9 - HYPOTHYROIDISM, UNSPECIFIED Problem List - Problems (1) Hypernatremia Code(s): E87.0 - HYPEROSMOLALITY AND HYPERNATREMIA (2) Severe protein-calorie malnutrition Code(s): E43 - UNSPECIFIED SEVERE PROTEIN-CALORIE MALNUTRITION (3) Dementia Code(s): F03.90 - UNSPECIFIED DEMENTIA WITHOUT BEHAVIORAL DISTURBANCE Qualifiers: Dementia type: unspecified type Dementia behavioral disturbance: without behavioral disturbance Qualified Code(s): F03.90 - Unspecified dementia without behavioral disturbance (4) HTN (hypertension) Code(s): I10 - ESSENTIAL (PRIMARY) HYPERTENSION (5) Hypothyroidism Code(s): E03.9 - HYPOTHYROIDISM, UNSPECIFIED
--- NOTE | 2018-07-10 17:26 | PN ---
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 Pt appears more alert today. No verbalizations but occasionally vocal. melter loader report good response to po intake with with s/s aspiration. Chart review indicates 50 to 75% consumption. Recommendations: Continue pureed solids with honey thicken liquids. Provide oral care as needed. Observe standard aspiration precautions. Results given to chart RN and to pcp via chart.
[2018-07-11] MEDS: NYSTATIN 500,000 UNITS/5 ML SUSPENSION PO SCH ×3 (06:25→17:53)
[2018-07-11] MEDS: LEVOTHYROXINE NA 50 MCG TABLET (FP) PO SCH (06:25)
[2018-07-11] MEDS: KCL 10 MEQ IVPB 10 MEQ/100 ML INFUS.BAG IVPB SCH ×3 (09:00→19:45)
[2018-07-11 09:13] LABS: ANION GAP 7 MMOL/L (8-16); BLOOD UREA NITROGEN 14 mg/dL (7-18); CALCIUM 8.1 mg/dL (8.5-10.1); CHLORIDE 114 mmol/L (98-107); CO2 28 mmol/L (21-32); CREATININE 0.6 mg/dL (0.55-1.3); GLUCOSE,RANDOM 80 mg/dL (74-106); POTASSIUM 3.1 mmol/L (3.5-5.1); SODIUM 149 mmol/L (136-145)
[2018-07-11] MEDS: FOLIC ACID 1 MG TABLET (FP) PO SCH (10:28)
[2018-07-11] MEDS: PANTOPRAZOLE 40 MG TABLET (FP) PO SCH (10:28)
--- NOTE | 2018-07-11 11:45 | PN ---
Progress Note (short form) - Note Progress Note: RENAL Pt appears comfortable but is not interactive Last Vital Signs Temp Pulse Resp BP Pulse Ox 99.1 F 74 18 109/50 L 100 07/11/18 09:29 07/11/18 09:29 07/11/18 09:29 07/11/18 09:29 07/11/18 09:00 lungs clear cvs s1s2 rr abd soft ext no edema CBC, BMP 07/10/18 06:40 07/11/18 07:00 Current Medications Generic Name Dose Route Start Last Admin Trade Name Rona PRN Reason Stop Dose Admin Folic Acid 1 mg 07/08/18 10:00 07/11/18 10:28 Folic Acid - PO 1 mg DAILY [facility] Administration Levothyroxine Sodium 50 mcg 07/11/18 07:00 07/11/18 06:25 Synthroid - PO 50 mcg DAILY@0700 [facility] Administration Nystatin 500,000 units 07/08/18 06:00 07/11/18 06:25 Nystatin Oral Suspension - PO 500,000 units Q6HPO [facility] Administration Pantoprazole Sodium 40 mg 07/11/18 10:00 07/11/18 10:28 Protonix - PO 40 mg DAILY [facility] Administration IMPRESSION hypernatremia hypokalemia dementia PLAN continue current management replace potassium orally GOC are unclear at this point MV
--- NOTE | 2018-07-11 15:20 | PN ---
Progress Note, Physician Chief Complaint: Ms Rust is interactive but aphasic. Eating well. - Current Medication List Current Medications: Active Medications Folic Acid (Folic Acid -) 1 mg PO DAILY [facility] Last Admin: 07/11/18 10:28 Dose: 1 mg Levothyroxine Sodium (Synthroid -) 50 mcg PO DAILY@0700 [facility] Last Admin: 07/11/18 06:25 Dose: 50 mcg Nystatin (Nystatin Oral Suspension -) 500,000 units PO Q6HPO [facility] Last Admin: 07/11/18 13:25 Dose: 500,000 units Pantoprazole Sodium (Protonix -) 40 mg PO DAILY [facility] Last Admin: 07/11/18 10:28 Dose: 40 mg - Objective Vital Signs: Vital Signs Temperature 36.6 C 07/11/18 13:40 Pulse Rate 80 07/11/18 13:40 Respiratory Rate 16 07/11/18 13:40 Blood Pressure 107/59 L 07/11/18 13:40 O2 Sat by Pulse Oximetry (%) 100 07/11/18 09:00 Constitutional: Yes: No Distress, Calm, Thin Cardiovascular: Yes: Regular Rate and Rhythm. No: Gallop, Murmur, Rub Respiratory: Yes: Regular, CTA Bilaterally. No: Rales, Rhonchi, Wheezes Gastrointestinal: Yes: Normal Bowel Sounds, Soft. No: Distention, Tenderness Extremities: Yes: WNL Edema: No Labs: CBC, BMP 07/10/18 06:40 07/11/18 07:00 INR, PTT INR 1.12 (0.83-1.09) H 07/07/18 20:30 Problem List - Problems (1) Hypernatremia Code(s): E87.0 - HYPEROSMOLALITY AND HYPERNATREMIA (2) Severe protein-calorie malnutrition Code(s): E43 - UNSPECIFIED SEVERE PROTEIN-CALORIE MALNUTRITION (3) Dementia Code(s): F03.90 - UNSPECIFIED DEMENTIA WITHOUT BEHAVIORAL DISTURBANCE Qualifiers: Dementia type: unspecified type Dementia behavioral disturbance: without behavioral disturbance Qualified Code(s): F03.90 - Unspecified dementia without behavioral disturbance (4) HTN (hypertension) Code(s): I10 - ESSENTIAL (PRIMARY) HYPERTENSION (5) Hypothyroidism Code(s): E03.9 - HYPOTHYROIDISM, UNSPECIFIED (6) Functional quadriplegia Code(s): R53.2 - FUNCTIONAL QUADRIPLEGIA Assessment/Plan (1) Hypernatremia Assessment/Plan: -continues to improve off of IVF -continue po intake Code(s): E87.0 - HYPEROSMOLALITY AND HYPERNATREMIA (2) Severe protein-calorie malnutrition Assessment/Plan: -continue current diet Code(s): E43 - UNSPECIFIED SEVERE PROTEIN-CALORIE MALNUTRITION (3) Dementia Assessment/Plan: -end stage Code(s): F03.90 - UNSPECIFIED DEMENTIA WITHOUT BEHAVIORAL DISTURBANCE Qualifiers: Dementia type: unspecified type Dementia behavioral disturbance: without behavioral disturbance Qualified Code(s): F03.90 - Unspecified dementia without behavioral disturbance (4) HTN (hypertension) Assessment/Plan: -controlled -does not need tight blood pressure control Code(s): I10 - ESSENTIAL (PRIMARY) HYPERTENSION (5) Hypothyroidism Assessment/Plan: -continue synthroid Code(s): E03.9 - HYPOTHYROIDISM, UNSPECIFIED
[2018-07-11] MEDS: POTASSIUM CHLORIDE ORAL LIQUID 20 MEQ/15 ML PO ONE ×2 (17:53→18:08)
[2018-07-12] MEDS: NYSTATIN 500,000 UNITS/5 ML SUSPENSION PO SCH ×5 (00:21→23:48)
[2018-07-12] MEDS: LEVOTHYROXINE NA 50 MCG TABLET (FP) PO SCH (06:06)
[2018-07-12 09:06] LABS: ANION GAP 5 MMOL/L (8-16); BLOOD UREA NITROGEN 11 mg/dL (7-18); CALCIUM 8.1 mg/dL (8.5-10.1); CHLORIDE 113 mmol/L (98-107); CO2 29 mmol/L (21-32); CREATININE 0.6 mg/dL (0.55-1.3); GLUCOSE,RANDOM 77 mg/dL (74-106); MAGNESIUM 2.1 mg/dL (1.8-2.4); PHOSPHOROUS 2.4 mg/dL (2.5-4.9); POTASSIUM 3.7 mmol/L (3.5-5.1); SODIUM 147 mmol/L (136-145)
[2018-07-12] MEDS: PANTOPRAZOLE 40 MG TABLET (FP) PO SCH (09:37)
[2018-07-12] MEDS: FOLIC ACID 1 MG TABLET (FP) PO SCH (09:37)
--- NOTE | 2018-07-12 12:29 | PN ---
Progress Note, Physician Chief Complaint: Ms Rust is awake, remains aphasic. - Current Medication List Current Medications: Active Medications Folic Acid (Folic Acid -) 1 mg PO DAILY [facility] Last Admin: 07/12/18 09:37 Dose: 1 mg Levothyroxine Sodium (Synthroid -) 50 mcg PO DAILY@0700 [facility] Last Admin: 07/12/18 06:06 Dose: 50 mcg Nystatin (Nystatin Oral Suspension -) 500,000 units PO Q6HPO [facility] Last Admin: 07/12/18 06:05 Dose: 500,000 units Pantoprazole Sodium (Protonix -) 40 mg PO DAILY [facility] Last Admin: 07/12/18 09:37 Dose: 40 mg - Objective Vital Signs: Vital Signs Temperature 36.7 C 07/12/18 06:00 Pulse Rate 66 07/12/18 06:00 Respiratory Rate 18 07/12/18 06:00 Blood Pressure 115/66 07/12/18 06:00 O2 Sat by Pulse Oximetry (%) 99 07/11/18 21:00 Constitutional: Yes: No Distress, Calm, Thin Cardiovascular: Yes: Regular Rate and Rhythm. No: Gallop, Murmur, Rub Respiratory: Yes: Regular, CTA Bilaterally. No: Rales, Rhonchi, Wheezes Gastrointestinal: Yes: Normal Bowel Sounds, Soft. No: Distention, Tenderness Extremities: Yes: WNL Edema: No Labs: CBC, BMP 07/10/18 06:40 07/12/18 07:30 INR, PTT INR 1.12 (0.83-1.09) H 07/07/18 20:30 Problem List - Problems (1) Hypernatremia Code(s): E87.0 - HYPEROSMOLALITY AND HYPERNATREMIA (2) Severe protein-calorie malnutrition Code(s): E43 - UNSPECIFIED SEVERE PROTEIN-CALORIE MALNUTRITION (3) Dementia Code(s): F03.90 - UNSPECIFIED DEMENTIA WITHOUT BEHAVIORAL DISTURBANCE Qualifiers: Dementia type: unspecified type Dementia behavioral disturbance: without behavioral disturbance Qualified Code(s): F03.90 - Unspecified dementia without behavioral disturbance (4) HTN (hypertension) Code(s): I10 - ESSENTIAL (PRIMARY) HYPERTENSION (5) Hypothyroidism Code(s): E03.9 - HYPOTHYROIDISM, UNSPECIFIED (6) Functional quadriplegia Code(s): R53.2 - FUNCTIONAL QUADRIPLEGIA Assessment/Plan (1) Hypernatremia Assessment/Plan: -continues to improve off of IVF -continue po intake Code(s): E87.0 - HYPEROSMOLALITY AND HYPERNATREMIA (2) Severe protein-calorie malnutrition Assessment/Plan: -continue current diet Code(s): E43 - UNSPECIFIED SEVERE PROTEIN-CALORIE MALNUTRITION (3) Dementia Assessment/Plan: -end stage Code(s): F03.90 - UNSPECIFIED DEMENTIA WITHOUT BEHAVIORAL DISTURBANCE Qualifiers: Dementia type: unspecified type Dementia behavioral disturbance: without behavioral disturbance Qualified Code(s): F03.90 - Unspecified dementia without behavioral disturbance (4) HTN (hypertension) Assessment/Plan: -controlled -does not need tight blood pressure control Code(s): I10 - ESSENTIAL (PRIMARY) HYPERTENSION (5) Hypothyroidism Assessment/Plan: -continue synthroid Code(s): E03.9 - HYPOTHYROIDISM, UNSPECIFIED Dispo -discharge planning, home hospice
[2018-07-13] MEDS: NYSTATIN 500,000 UNITS/5 ML SUSPENSION PO SCH ×4 (05:46→23:03)
[2018-07-13] MEDS: LEVOTHYROXINE NA 50 MCG TABLET (FP) PO SCH (06:01)
[2018-07-13 08:26] LABS: BASO % 0.6 % (0-2.0); EOS % 1.8 % (0-4.5); HEMATOCRIT 34.6 % (32.4-45.2); LYMPH % 31.8 % (8-40); MCH 27.3 pg (25.7-33.7); MCHC 31.7 g/dl (32.0-36.0); MEAN CELL VOLUME 86.3 fl (80-96); MEAN PLT VOLUME 10.8 fl (7.5-11.1); MONO % 7.9 % (3.8-10.2); NEUT % 57.9 % (42.8-82.8); PLATELET COUNT 130 K/MM3 (134-434); RBC 4.02 M/mm3 (3.60-5.2); RDW 15.7 % (11.6-15.6); WHITE BLOOD COUNT 4.9 K/mm3 (4.0-10.0)
[2018-07-13 08:39] LABS: ANION GAP 6 MMOL/L (8-16); BLOOD UREA NITROGEN 9 mg/dL (7-18); CALCIUM 8.1 mg/dL (8.5-10.1); CHLORIDE 110 mmol/L (98-107); CO2 29 mmol/L (21-32); CREATININE 0.6 mg/dL (0.55-1.3); GLUCOSE,RANDOM 79 mg/dL (74-106); PHOSPHOROUS 2.5 mg/dL (2.5-4.9); POTASSIUM 3.9 mmol/L (3.5-5.1); SODIUM 145 mmol/L (136-145)
--- NOTE | 2018-07-13 09:28 | PN ---
Progress Note (short form) - Note Progress Note: Dr. Hoyt to document today. Awaiting decision from Hospice to recertify patient who continues to deteriorate in function with several hospital admissions in the last 6 months and now depends on the staff for assist with all ADL's. She will take part of her puree diet with assist but it should be noted that with her admission Sodium of 172 the renal MD stated that she was 3 liters of fluid behind. This will likely recur when she is sent back home. She also now utters less than the require 6 words a day.
--- NOTE | 2018-07-13 09:53 | PN ---
Progress Note, Physician Chief Complaint: Pt lying in bed in no acute distress. unable to obtain 2/2 dementia - Current Medication List Current Medications: Active Medications Folic Acid (Folic Acid -) 1 mg PO DAILY [facility] Last Admin: 07/12/18 09:37 Dose: 1 mg Levothyroxine Sodium (Synthroid -) 50 mcg PO DAILY@0700 [facility] Last Admin: 07/13/18 06:01 Dose: 50 mcg Nystatin (Nystatin Oral Suspension -) 500,000 units PO Q6HPO [facility] Last Admin: 07/13/18 05:46 Dose: 500,000 units Pantoprazole Sodium (Protonix -) 40 mg PO DAILY [facility] Last Admin: 07/12/18 09:37 Dose: 40 mg - Objective Vital Signs: Vital Signs Temperature 98.2 F 07/13/18 06:00 Pulse Rate 72 07/13/18 06:00 Respiratory Rate 18 07/13/18 06:00 Blood Pressure 135/66 07/13/18 06:00 O2 Sat by Pulse Oximetry (%) 98 07/12/18 21:00 Constitutional: Yes: No Distress, Thin Cardiovascular: Yes: Regular Rate and Rhythm Respiratory: Yes: WNL, Regular, CTA Bilaterally. No: Accessory Muscle Use, SOB , Tachypnea, Wheezes Gastrointestinal: Yes: WNL, Normal Bowel Sounds, Soft. No: Distention, Tenderness Genitourinary: Yes: Incontinence Edema: No Neurological: Yes: Alert, Aphasia, Confusion Psychiatric: Yes: Alert Labs: CBC, BMP 07/13/18 06:00 07/13/18 06:00 INR, PTT INR 1.12 (0.83-1.09) H 07/07/18 20:30 Assessment/Plan (1) Hypernatremia Assessment/Plan: resolved encourage po intake Code(s): E87.0 - HYPEROSMOLALITY AND HYPERNATREMIA (2) Severe protein-calorie malnutrition Assessment/Plan: continue pureed diet Code(s): E43 - UNSPECIFIED SEVERE PROTEIN-CALORIE MALNUTRITION (3) Dementia Assessment/Plan: progressive, end stage Code(s): F03.90 - UNSPECIFIED DEMENTIA WITHOUT BEHAVIORAL DISTURBANCE Qualifiers: Dementia type: unspecified type Dementia behavioral disturbance: without behavioral disturbance Qualified Code(s): F03.90 - Unspecified dementia without behavioral disturbance (4) HTN (hypertension) Assessment/Plan: controlled Code(s): I10 - ESSENTIAL (PRIMARY) HYPERTENSION (5) Hypothyroidism Assessment/Plan: continue synthroid Code(s): E03.9 - HYPOTHYROIDISM, UNSPECIFIED Dispo: Pt is medically stable for discharge. Pending home hospice placement. SW informed.
[2018-07-13] MEDS: PANTOPRAZOLE 40 MG TABLET (FP) PO SCH (11:04)
[2018-07-13] MEDS: FOLIC ACID 1 MG TABLET (FP) PO SCH (11:04)
--- NOTE | 2018-07-13 12:26 | PN ---
Progress Note, HVAC SPECIALIST - Note Progress Note: Selected Entries 07/12/18 07/12/18 07/12/18 06:00 11:02 12:00 Breakfast 75% Diet Tolerated Fair Supper Temperature 98.1 F 98.1 F 07/12/18 07/12/18 07/13/18 14:01 18:52 06:00 Breakfast Diet Tolerated Fair Fair Supper 25% Temperature 98.8 F 98.2 F 07/13/18 07/13/18 10:13 10:28 Breakfast 25% Diet Tolerated Poor Supper Temperature 98.3 F Laboratory Tests 07/13/18 06:00 WBC 4.9 On puree/Honey thick liquid. Pending consideration for Home Hospice. Swallowing reassessed with brisk swallow without overt signs of aspiration. Severe Protein malnutrition. REC: Dys puree, Magic cup, Ensure Enlive (20 protein), Thin liquid
--- NOTE | 2018-07-13 17:04 | PN ---
Progress Note, Physician History of Present Illness: Pt seen and examined. She appears comfortable. She is tolerating diet but needs one to one feeds. - Current Medication List Current Medications: Active Medications Levothyroxine Sodium (Synthroid -) 50 mcg PO DAILY@0700 [facility] Last Admin: 07/13/18 06:01 Dose: 50 mcg Nystatin (Nystatin Oral Suspension -) 500,000 units PO Q6HPO [facility] Last Admin: 07/13/18 11:32 Dose: 500,000 units Pantoprazole Sodium (Protonix -) 40 mg PO DAILY [facility] Last Admin: 07/13/18 11:04 Dose: 40 mg - Objective Vital Signs: Vital Signs Temperature 97.1 F L 07/13/18 13:50 Pulse Rate 77 07/13/18 13:50 Respiratory Rate 18 07/13/18 13:50 Blood Pressure 94/56 L 07/13/18 13:50 O2 Sat by Pulse Oximetry (%) 98 07/12/18 21:00 Constitutional: Yes: Calm Eyes: Yes: Conjunctiva Clear HENT: Yes: Atraumatic Cardiovascular: Yes: S1, S2 Gastrointestinal: Yes: Normal Bowel Sounds, Soft Genitourinary: Yes: Incontinence Musculoskeletal: Yes: Muscle Weakness Edema: No Neurological: Yes: Confusion Labs: CBC, BMP 07/13/18 06:00 07/13/18 06:00 INR, PTT INR 1.12 (0.83-1.09) H 07/07/18 20:30 Problem List - Problems (1) Dementia Code(s): F03.90 - UNSPECIFIED DEMENTIA WITHOUT BEHAVIORAL DISTURBANCE Qualifiers: Dementia type: unspecified type Dementia behavioral disturbance: without behavioral disturbance Qualified Code(s): F03.90 - Unspecified dementia without behavioral disturbance (2) Failure to thrive Code(s): [id number] - Qualifiers: Failure to thrive age range: in adult Qualified Code(s): R62.7 - Adult failure to thrive (3) Hypernatremia Code(s): E87.0 - HYPEROSMOLALITY AND HYPERNATREMIA Assessment/Plan Current Medications Generic Name Dose Route Start Last Admin Trade Name Freq PRN Reason Stop Dose Admin Levothyroxine Sodium 50 mcg 07/11/18 07:00 07/13/18 06:01 Synthroid - PO 50 mcg DAILY@0700 [facility] Administration Nystatin 500,000 units 07/08/18 06:00 07/13/18 11:32 Nystatin Oral Suspension - PO 500,000 units Q6HPO [facility] Administration Pantoprazole Sodium 40 mg 07/11/18 10:00 07/13/18 11:04 Protonix - PO 40 mg DAILY [facility] Administration Impression 1. hypernatremia 2. dementia 3. hypothyroidism 4. failure to thrive 5. hx UTI 6. hypokalemia Plan - sodium is in normal range - potassium stable - one to one feeds - will follow PRN - discussed with medical team Dr Trujillo
[2018-07-14] MEDS: NYSTATIN 500,000 UNITS/5 ML SUSPENSION PO SCH ×4 (06:09→23:35)
[2018-07-14] MEDS: LEVOTHYROXINE NA 50 MCG TABLET (FP) PO SCH (06:09)
[2018-07-14 08:21] LABS: ANION GAP 6 MMOL/L (8-16); BLOOD UREA NITROGEN 7 mg/dL (7-18); CALCIUM 8.5 mg/dL (8.5-10.1); CHLORIDE 107 mmol/L (98-107); CO2 30 mmol/L (21-32); CREATININE 0.6 mg/dL (0.55-1.3); GLUCOSE,RANDOM 73 mg/dL (74-106); MAGNESIUM 2.1 mg/dL (1.8-2.4); PHOSPHOROUS 2.8 mg/dL (2.5-4.9); POTASSIUM 4.1 mmol/L (3.5-5.1); SODIUM 142 mmol/L (136-145)
--- NOTE | 2018-07-14 10:25 | PN ---
Progress Note (short form) - Note Progress Note: Patient is going to be assessed for home hospice recertification. The acute Hpernatremia has resolved with 3 liters of IV fluid and thereis improvement in oral intake.. She continues with severe dementia. Criteria for hospice at home are still valid if you consider her recent clinical deterioration with this hospital admission and 2 recent admissions in 03/17 and 11/14 for sepsis related illnesses. She continues to require assist with EVERY ADL and cannot say more than 1-2 intelligble words in a day and has severe protein malnutrition based on her albumin less than 2.5 and her low prealbumin of 14.2. It is almost a guarantee that she will again become hypernatremic and 3 liters of fluid behind in the near future. Finally I think it is reasonable to say that most patients with her clinical picture will not survive 6 months. I think these plans should be finalized before discharge and if denied other arrangements would have to placed firmly in place.
--- NOTE | 2018-07-14 10:32 | PN ---
Progress Note, Physician Chief Complaint: Pt lying in bed in no acute distress. unable to obtain 2/2 dementia - Current Medication List Current Medications: Active Medications Levothyroxine Sodium (Synthroid -) 50 mcg PO DAILY@0700 [facility] Last Admin: 07/14/18 06:09 Dose: 50 mcg Nystatin (Nystatin Oral Suspension -) 500,000 units PO Q6HPO [facility] Last Admin: 07/14/18 06:09 Dose: 500,000 units Pantoprazole Sodium (Protonix -) 40 mg PO DAILY [facility] Last Admin: 07/13/18 11:04 Dose: 40 mg - Objective Vital Signs: Vital Signs Temperature 97.9 F 07/14/18 09:04 Pulse Rate 76 07/14/18 09:04 Respiratory Rate 18 07/14/18 09:04 Blood Pressure 128/75 07/14/18 09:04 O2 Sat by Pulse Oximetry (%) 98 07/13/18 21:00 Constitutional: Yes: No Distress, Calm, Thin Cardiovascular: Yes: Regular Rate and Rhythm Respiratory: Yes: WNL, Regular, CTA Bilaterally. No: Accessory Muscle Use, SOB , Tachypnea, Wheezes Gastrointestinal: Yes: WNL, Normal Bowel Sounds, Soft. No: Distention, Tenderness Genitourinary: Yes: Incontinence Extremities: Yes: WNL Edema: No Neurological: Yes: Alert, Confusion Psychiatric: Yes: Alert Labs: CBC, BMP 07/13/18 06:00 07/14/18 06:35 INR, PTT INR 1.12 (0.83-1.09) H 07/07/18 20:30 Assessment/Plan (1) Hypernatremia Assessment/Plan: resolved encourage po intake Code(s): E87.0 - HYPEROSMOLALITY AND HYPERNATREMIA (2) Severe protein-calorie malnutrition Assessment/Plan: continue pureed diet Code(s): E43 - UNSPECIFIED SEVERE PROTEIN-CALORIE MALNUTRITION (3) Dementia Assessment/Plan: progressive, end stage Code(s): F03.90 - UNSPECIFIED DEMENTIA WITHOUT BEHAVIORAL DISTURBANCE Qualifiers: Dementia type: unspecified type Dementia behavioral disturbance: without behavioral disturbance Qualified Code(s): F03.90 - Unspecified dementia without behavioral disturbance (4) HTN (hypertension) Assessment/Plan: controlled Code(s): I10 - ESSENTIAL (PRIMARY) HYPERTENSION (5) Hypothyroidism Assessment/Plan: continue synthroid Code(s): E03.9 - HYPOTHYROIDISM, UNSPECIFIED Dispo: Pt is medically stable for discharge. Pending home hospice placement. SW informed.
[2018-07-14] MEDS: PANTOPRAZOLE 40 MG TABLET (FP) PO SCH (11:36)
[2018-07-15] MEDS: LEVOTHYROXINE NA 50 MCG TABLET (FP) PO SCH (06:19)
[2018-07-15] MEDS: NYSTATIN 500,000 UNITS/5 ML SUSPENSION PO SCH (06:19)
--- NOTE | 2018-07-15 08:33 | PN ---
Progress Note (short form) - Note Progress Note: Dr. Hoyt/CARYN Calderon to document today. Await decision from Hospice later today. HOPEFULLY they will review my note from Friday07/14/17.
--- NOTE | 2018-07-15 10:18 | DS ---
Physical Examination Vital Signs: Vital Signs Temperature 98.1 F 07/15/18 06:00 Pulse Rate 74 07/15/18 06:00 Respiratory Rate 18 07/15/18 06:00 Blood Pressure 133/63 07/15/18 06:00 O2 Sat by Pulse Oximetry (%) 96 07/14/18 21:00 Constitutional: Yes: No Distress, Thin Cardiovascular: Yes: Regular Rate and Rhythm Respiratory: Yes: WNL, Regular, CTA Bilaterally. No: Accessory Muscle Use, SOB , Tachypnea, Wheezes Gastrointestinal: Yes: WNL, Normal Bowel Sounds, Soft. No: Distention, Tenderness Renal/: Yes: Incontinence Extremities: Yes: WNL Edema: No Neurological: Yes: Alert, Aphasia, Confusion, Pre-Existing Deficit Psychiatric: Yes: Alert Labs: CBC, BMP 07/13/18 06:00 07/14/18 06:35 Discharge Summary Reason For Visit: DEMENTIA FAILURE TO THRIVE HYPERNATREMIA Current Active Problems Dementia (Acute) Failure to thrive (Acute) Functional quadriplegia (Acute) Hypernatremia (Acute) Hospital Course: 88 year old female with pmh of advanced dementia admitted for evaluation of AMS/ reduced oral intake. Pt found to be hypernatremic on admission. hypernatremia improved w/ ivf and stable off fluids. All infectious work up negative. Pt evaluated by speech, no overt signs of aspiration, recommends dysphagia pureed diet. Pt is in no acute distress, has been tolerating diet and labs are stable. Continue aspiration precautions. Reposition q2hrs to maintain skin integrity. No additional wound care needs at this time. Pt is medically stable for discharge home w/ VNS. 35 minutes spent in discharge planning Condition: Fair - Instructions Diet, Activity, Other Instructions: dysphagia pureed diet, thin liquids as tolerated reposition q2hrs to prevent pressure ulcers maintain perineal area dry aspiration precautions meds as directed Referrals: Alvaro Nguyen MD [Primary Care Provider] - 1 Week Disposition: VNS/HOME HEALTH CARE - Home Medications Comprehensive Discharge Medication List: Ambulatory Orders Levothyroxine [Synthroid -] 50 mcg PO DAILY 06/21/14
[2018-07-15] MEDS: PANTOPRAZOLE 40 MG TABLET (FP) PO SCH (12:00)
[2018-07-16] MEDS: LEVOTHYROXINE NA 50 MCG TABLET (FP) PO SCH (06:24)
--- NOTE | 2018-07-16 08:39 | PN ---
Progress Note (short form) - Note Progress Note: CLOSING MACHINE OPERATOR Kvng/Hospitalist to document today. It appears from the hospice nurse evaluation on the blue chart that hospice will probably recertify the patient. I wrote and faxed back to hospice my narrative yesterday.
[2018-07-16] MEDS: PANTOPRAZOLE 40 MG TABLET (FP) PO SCH (09:04)
[2018-07-16] MEDS ORDERED: RANITIDINE HCL 150 MG TABLET (FP) PO SCH (10:00)
[2018-07-16 15:16] VITALS: BP 132/88; PULSE 88; TEMP 98.2
== END 2018-07-16 16:28 | disposition home health service (06) | DRG 640 ==
LOC: JER 19:03 → J5S 07-08 00:24
PROVIDERS: ADMIT Internal Medicine; ATTEND Nurse Practitioner Family
DX: E87.0 Hyperosmolality and hypernatremia (principal); G93.41 Metabolic encephalopathy; R53.2 Functional quadriplegia; E43 Unspecified severe protein-calorie malnutrition; Z68.1 Body mass index [BMI] 19.9 or less, adult; R64 Cachexia; B37.0 Candidal stomatitis; R62.7 Adult failure to thrive; F03.90 Unspecified dementia, unspecified severity, without behavioral disturbance, psychotic disturbance, mood disturbance, and anxiety; D69.6 Thrombocytopenia, unspecified; E03.9 Hypothyroidism, unspecified; I10 Essential (primary) hypertension; E87.6 Hypokalemia; K21.9 Gastro-esophageal reflux disease without esophagitis; E88.09 Other disorders of plasma-protein metabolism, not elsewhere classified; R41.82 Altered mental status, unspecified
CPT/HCPCS: 36415; 70450-TC; 71045-TC-FY; 80048; 80053; 81003; 82550; 82553; 82607; 82746; 82803; 83605; 83735; 83935; 84100; 84134; 84300; 84439; 84443; 85025; 85027; 85610; 85730; 86850; 86900; 86901; 87040; 87086; 87804; 93005; 93010; 99285-25; J0131

== ENCOUNTER 2019-05-17 19:39 | Inpatient (IN) | payer OTHER ==
--- NOTE | 2019-05-17 19:57 | PDOC ---
History of Present Illness - General Stated Complaint: SHORTNESS OF BREATH Time Seen by Provider: 05/17/19 19:50 - History of Present Illness Initial Comments: 05/17/19 19:56 HPI: 88 y/o F with h/o severe dementia, baseline bedbound, HTN, recurrent UTI, constipation, hypothyroidism, protein-calorie malnutrition who is DNR/DNI and on hospice presenting with 2 weeks of difficulty swallowing any PO intake. The patient is bedbound and cannot perform any ADLs. The son feeds her but states that the after 3 spoonfuls she would start to dribble food out of the corner of her mouth. He attempted diluting foods and administering via syringe but still continues to dribble. He also reports patient is increasingly lethargic and less comomunicative over the past 4 days. He states no fever, cough, SOB. Of note, after discussion with patient family and hospice environmental services floor tech nurse over the phone, son wishes are for evaluation of source of infection as well as IV hydration. Son does not want heroic efforts, pressors, central access PMHx: as noted above ROS: as noted SHx: Denies tobacco use; no alcohol use; no rec drugs Allergies: NKDA ROS: unable to perform due to mental status PE: GENERAL: Awake, does not follow commands, no intentional movements, lethargic, severely cachectic HEAD: No signs of trauma, normocephalic, atraumatic EYES: EOMI, sclera anicteric, conjunctiva clear ENT: Auricles normal inspection, oropharynx clear without exudates. dry mucus membranes NECK: Normal ROM, no lymphadenopathy LUNGS: No increased work of breathing, symmetrical chest rise, clear to auscultation bilaterally, no wheezes, crackles or rhonchi HEART: tachycardia and regular rhythm, normal S1 and S2, no murmurs, peripheral pulses 2+ and equal bilaterally. ABDOMEN: Soft, nondistended, nontender, normoactive bowel sounds. No guarding, no rebound. No masses. No CVAT EXTREMITIES: minimal ROM and signifciantly atrophied NEUROLOGICAL: neuro exam limited by patient participation SKIN: stage 4 sacral decub ulcer without purulence or surrounding erythema, left hip with stage 3 ulcer Past History - Past Medical History Allergies/Adverse Reactions: Allergies Allergy/AdvReac Type Severity Reaction Status Date / Time No Known Allergies Allergy Verified 07/07/18 20:11 Home Medications: Ambulatory Orders Levothyroxine [Synthroid -] 50 mcg PO DAILY 06/21/14 Ranitidine [Zantac -] 150 mg PO BID #30 tablet 07/16/18 COPD: No Dementia: Yes HTN: Yes Thyroid Disease: Yes (Hypothyroid) - Surgical History Abdominal Surgery: Yes (left inguinal hernia) Cholecystectomy: Yes - Immunization History Immunization Up to Date: Yes - Psycho Social/Smoking Cessation Hx Smoking Status: No Smoking History: Never smoked Have you smoked in the past 12 months: No Number of Cigarettes Smoked Daily: 0 Hx Alcohol Use: No Drug/Substance Use Hx: No Substance Use Type: None Hx Substance Use Treatment: No ED Treatment Course - LABORATORY CBC & Chemistry Diagram: 05/17/19 22:32 05/17/19 22:32 Medical Decision Making - Medical Decision Making 05/17/19 22:41 88 y/o F with h/o severe dementia, baseline bedbound, HTN, recurrent UTI, constipation, hypothyroidism, protein-calorie malnutrition who is DNR/DNI and on hospice presenting with 2 weeks of difficulty swallowing any PO intake and increasing lethargy Of note, after discussion with patient family and hospice environmental services floor tech nurse over the phone, son wishes are for evaluation of source of infection as well as IV hydration. Son does not want heroic efforts, pressors, central access -cbc, cmp, ua, ucs, bcx, cxr -ivf 05/18/19 02:42 UA positive for UTI; will give 1g ceftriaxone will admit under Dr Hui to med surg Discharge - Discharge Information Problems reviewed: Yes Clinical Impression/Diagnosis: Hypernatremia UTI (urinary tract infection) Qualifiers: Urinary tract infection type: site unspecified Hematuria presence: without hematuria Qualified Code(s): N39.0 - Urinary tract infection, site not specified - Admission Yes - Follow up/Referral Referrals: Alvrao Nguyen MD [Primary Care Provider] - - Patient Discharge Instructions - Post Discharge Activity
--- NOTE | 2019-05-17 20:38 | PDOC ---
Attending Attestation - Resident Resident Name: Funmilayo Culver - ED Attending Attestation I have performed the following: I have examined & evaluated the patient, The case was reviewed & discussed with the resident, I agree w/resident's findings & plan, Exceptions are as noted
--- NOTE | 2019-05-17 22:21 | PDOC ---
Documentation entered by Belen Anna SCRIBE, acting as scribe for Sanna John MD. Sanna John MD: This documentation has been prepared by the Shoshana kaur Xhesika, SCRIBE, under my direction and personally reviewed by me in its entirety. I confirm that the documentation accurately reflects all work, treatment, procedures, and medical decision making performed by me. Attending Attestation - Resident Resident Name: Funmilayo Culver - ED Attending Attestation I have performed the following: I have examined & evaluated the patient, The case was reviewed & discussed with the resident, I agree w/resident's findings & plan, Exceptions are as noted - HPI HPI: 05/17/19 21:20 The patient is an 88 year old female with a significant PMH of severe dementia, baseline bedbound, HTN, recurrent UTI, constipation, hypothyroidism, protein- calorie malnutrition who presents to the emergency department BIBA for generalized weakness and lethargic. Patient is a poor historian due to her clinical condition. Allergies: NKDA Past surgical history: Cholecystectomy, left inguinal hernia PCP: Dr. Nguyen - Physicial Exam PE: 05/17/19 21:25 GENERAL: +lethargic,cachetic HEAD: No signs of trauma NECK: Normal ROM, supple, no lymphadenopathy, JVD, or masses LUNGS: Breath sounds equal, clear to auscultation bilaterally. No wheezes, and no crackles HEART: +tachycardic. ABDOMEN: Soft, nontender, normoactive bowel sounds. No guarding, no rebound. No masses EXTREMITIES: + contracted. + stage IV subcuticular ulcer. NEUROLOGICAL: limited by participation SKIN: +poor skin turgor. Warm, Dry, 05/17/19 22:21 - Medical Decision Making 05/18/19 01:23 89-year-old female who is DNR/DNI and on hospice is being brought in for dehydration and look for any infections because she has had failure to thrive The son did call hospice and we discussed what parameters to follow for treating this patient Hospice and the son decided that hydration and antibiotics if needed would be acceptable She is not to have any intubations, central lines, G-tube feedings or other procedures 05/18/19 01:24 her sodium is 170 and her BUN above 60 Urinalysis positive for urinary tract infection imp Dehydration,UTI pt to get antibiotics and IV hydration 05/18/19 01:24
[2019-05-17 23:07] LABS: BASO % 0.4 % (0-2.0); EOS % 0.1 % (0-4.5); HEMATOCRIT 42.6 % (32.4-45.2); HEMOGLOBIN 12.8 GM/dL (10.7-15.3); LYMPH % 7.2 % (8-40); MCH 24.8 pg (25.7-33.7); MCHC 30.1 g/dl (32.0-36.0); MEAN CELL VOLUME 82.3 fl (80-96); MEAN PLT VOLUME 11.3 fl (7.5-11.1); MONO % 2.7 % (3.8-10.2); NEUT % 89.6 % (42.8-82.8); PLATELET COUNT 104 K/MM3 (134-434); RBC 5.17 M/mm3 (3.60-5.2); RDW 17.6 % (11.6-15.6); WHITE BLOOD COUNT 16.4 K/mm3 (4.0-10.0)
[2019-05-17 23:15] LABS: BILIRUBIN,TOTAL 0.4 mg/dL (0.2-1); BLOOD UREA NITROGEN 67.5 mg/dL (7-18); CALCIUM 9.2 mg/dL (8.5-10.1); CREATININE 1.2 mg/dL (0.55-1.3); MAGNESIUM 2.8 mg/dL (1.8-2.4); POTASSIUM 4.6 mmol/L (3.5-5.1); TOT PROT 5.6 g/dl (6.4-8.2)
[2019-05-18] MEDS ORDERED: LACTATED RINGERS SOLUTION 1,000 ML/1,000 ML INFUS.BAG IV SCH ×2 (01:00→03:00)
[2019-05-18 01:17] LABS: EPI CELLS 1.7 /HPF (0-5/HPF); HYALINE CASTS 32 /lpf (0-8); PH,URINE >= 9.0 (5.0-8.0); URINE APPEARANCE TURBID; URINE BACTERIA >9000 /hpf (NEGATIVE); URINE BILIRUBIN NEGATIVE (NEGATIVE); URINE COLOR YELLOW; URINE GLUCOSE (UA) NEGATIVE (NEGATIVE); URINE KETONE NEGATIVE (NEGATIVE); URINE LEUK ESTERASE 3+ (NEGATIVE); URINE NITRITE NEGATIVE (NEGATIVE); URINE PROTEIN 2+ (NEGATIVE); URINE RBC 3 /hpf (0-4); URINE WBC 239 /hpf (0-5)
[2019-05-18] MEDS ORDERED: CEFTRIAXONE 1 GM in DEXTROSE 5%-WATER - 100 ML IVPB ONE (02:41)
[2019-05-18] MEDS ORDERED: CEFTRIAXONE 1 GM/50 ML BAG ONE (03:00)
[2019-05-18] MEDS ORDERED: DEXTROSE 5%-WATER - 1,000 ML IV SCH ×2 (03:00→06:05)
--- NOTE | 2019-05-18 03:04 | PN ---
Teaching Attending Note Name of Resident: Rani Zamora ATTENDING PHYSICIAN STATEMENT I saw and evaluated the patient. I reviewed the resident's note and discussed the case with the resident. I agree with the resident's findings and plan as documented. SUBJECTIVE: 88-year-old female From custodial with severe dementia, bedbound, hypertension, hypothyroidism with limited p.o. intake brought in with family for suspected failure to thrive. Patient is bedbound and cannot perform any ADLs. Patient is noted to be DNR/DNI. Patient cannot offer any information at this time due to her underlying severe dementia. OBJECTIVE: Last Vital Signs Temp Pulse Resp BP Pulse Ox 99.2 F 143 H 20 95/67 99 05/17/19 20:32 05/17/19 20:32 05/17/19 20:32 05/17/19 20:32 05/17/19 20:32 GENERAL: Cachectic, non-communicative, not in acute distress HEENT: Normocephalic, atraumatic. PERRLA, EOMI. No conjunctival pallor. Sclera are non- icteric. Moist mucous membranes. Oropharynx is clear. NECK: Supple. Full ROM. No JVD. Carotid pulses 2+ and symmetric, without bruits. No thyromegaly. No lymphadenopathy. CARDIOVASCULAR: Regular rate and rhythm. No murmurs, rubs, or gallops. Distal pulses are 2+ and symmetric. PULMONARY: No evidence of respiratory distress. Lungs clear to auscultation bilaterally. No wheezing, rales or rhonchi. ABDOMINAL: Soft. Non-tender. Non-distended. No rebound or guarding. No organomegaly. Normoactive bowel sounds. MUSCULOSKELETAL Normal range of motion at all joints. No bony deformities or tenderness. No CVA tenderness. EXTREMITIES: No cyanosis. No clubbing. No edema. No calf tenderness. SKIN: Left sacral stage IV ulcer, draining copious bloody purulent fluid, malodorous, Right sacral smaller stage II ulcer-Does not grossly appear infected NEUROLOGICAL: Severe dementia PSYCHIATRIC: Severe dementia, uncooperative Abnormal Lab Results 05/17/19 05/17/19 05/18/19 22:32 22:32 00:17 WBC 16.4 H MCH 24.8 L MCHC 30.1 L RDW 17.6 H Plt Count 104 L MPV 11.3 H Absolute Neuts (auto) 14.7 H Neutrophils % 89.6 H D Lymphocytes % 7.2 L D Monocytes % 2.7 L Sodium 170 H* Chloride 142 H Anion Gap 4 L BUN 67.5 H Magnesium 2.8 H Total Protein 5.6 L Albumin 2.0 L Urine pH >= 9.0 H D Urine Protein 2+ H Ur Leukocyte Esterase 3+ H Imaging studies reviewed ASSESSMENT AND PLAN: 89-year-old woman with severe dementia with severe hypernatremia likely secondary to free water loss. Limited p.o. intake suggests lack of adequate hydration. Admit to [facility] IV fluid hydration Dietary consult and calorie count Speech and swallow evaluation Bed rest, fall precautions #Infected stage IV decubitus ulcers with leukocytosis, foul-smelling purulent drainage.Suspect possible osteomyelitis Empiric treatment with vancomycin and Zosyn Vascular surgery consult for wound care ESR and CRP We discussed with family the goals of care and what their wishes are #Hypothyroidism Send TSH Continue home dose levothyroxine #Thrombocytopenia Trend platelets #Advanced directivespatient is DNR/DNI
[2019-05-18] MEDS ORDERED: VANCOMYCIN 1,000 MG in DEXTROSE 5%-WATER - 250 ML IVPB SCH (05:00)
--- NOTE | 2019-05-18 05:02 | HP ---
CHIEF COMPLAINT: Failure to thrive PCP: Dr. Nguyen HISTORY OF PRESENT ILLNESS: 88 year old female with a significant PMH of severe dementia, HTN, recurrent UTI, constipation, hypothyroidism, protein- calorie malnutrition who was BIBA and presents to the emergency department with generalized weakness and increased lethargy in the setting of severe dehydration to have her assessed for any infections given her recent status of failure to thrive. Patient is unable to provide a hx due to her clinical condition. All info provided in HPI done through chart review. Patient is on hospice care at this time. The son did call hospice and the ED staff discussed what parameters to follow for treating this patient. As per Hospice and the son , they decided hydration and antibiotics if needed would be acceptable. She is not to have any aggressive measurements such as: intubations, central lines, G- tube feedings or other procedures Allergies: NKDA Past surgical history: Cholecystectomy, left inguinal hernia ER course was notable for: (1) (2) (3) Recent Travel: PAST MEDICAL HISTORY: PAST SURGICAL HISTORY: Social History: Smoking: Alcohol: Drugs: Allergies No Known Allergies Allergy (Verified 07/07/18 20:11) HOME MEDICATIONS: Home Medications Medication Instructions Recorded Levothyroxine [Synthroid -] 50 mcg PO DAILY 06/21/14 Ranitidine [Zantac -] 150 mg PO BID #30 tablet 07/16/18 REVIEW OF SYSTEMS CONSTITUTIONAL: Absent: fever, chills, diaphoresis, generalized weakness, malaise, loss of appetite, weight change HEENT: Absent: rhinorrhea, nasal congestion, throat pain, throat swelling, difficulty swallowing, mouth swelling, ear pain, eye pain, visual changes CARDIOVASCULAR: Absent: chest pain, syncope, palpitations, irregular heart rate, lightheadedness , peripheral edema RESPIRATORY: Absent: cough, shortness of breath, dyspnea with exertion, orthopnea, wheezing, stridor, hemoptysis GASTROINTESTINAL: Absent: abdominal pain, abdominal distension, nausea, vomiting, diarrhea, constipation, melena, hematochezia GENITOURINARY: Absent: dysuria, frequency, urgency, hesitancy, hematuria, flank pain, genital pain MUSCULOSKELETAL: Absent: myalgia, arthralgia, joint swelling, back pain, neck pain SKIN: Absent: rash, itching, pallor HEMATOLOGIC/IMMUNOLOGIC: Absent: easy bleeding, easy bruising, lymphadenopathy, frequent infections ENDOCRINE: Absent: unexplained weight gain, unexplained weight loss, heat intolerance, cold intolerance NEUROLOGIC: Absent: headache, focal weakness or paresthesias, dizziness, unsteady gait, seizure, mental status changes, bladder or bowel incontinence PSYCHIATRIC: Absent: anxiety, depression, suicidal or homicidal ideation, hallucinations. PHYSICAL EXAMINATION Vital Signs - 24 hr 05/17/19 20:32 Temperature 99.2 F Pulse Rate 143 H Respiratory 20 Rate Blood Pressure 95/67 O2 Sat by Pulse 99 Oximetry (%) GENERAL: AO X 0. Cachectic. HEAD: significant temporal wasting, Mandibular wasting LUNGS: Breath sounds equal, clear to auscultation bilaterally. No wheezes, and no crackles. No accessory muscle use. HEART: tachycardia, regular rhythm, normal S1 and S2 without murmur, rub or gallop. ABDOMEN: Soft, nontender, not distended, hypoactive bowel sounds, no guarding, no rebound, no masses. MUSCULOSKELETAL: Normal range of motion at all joints. No bony deformities or tenderness. No CVA tenderness. UPPER EXTREMITIES: 2+ pulses, warm, well-perfused. No cyanosis. No clubbing. No peripheral edema, anorexia. LOWER EXTREMITIES: 1+ pulses, No calf tenderness. No peripheral edema, anorexia. NEUROLOGICAL: unable to assess SKIN: Warm, dry, poor skin turgor, no rashes or lesions noted, sacral decub ulcer stage IV on Left buttock. Laboratory Results - last 24 hr 05/17/19 05/17/19 05/17/19 22:32 22:32 22:32 WBC 16.4 H RBC 5.17 Hgb 12.8 Hct 42.6 D MCV 82.3 MCH 24.8 L MCHC 30.1 L RDW 17.6 H Plt Count 104 L MPV 11.3 H Absolute Neuts (auto) 14.7 H Neutrophils % 89.6 H D Lymphocytes % 7.2 L D Monocytes % 2.7 L Eosinophils % 0.1 D Basophils % 0.4 Nucleated RBC % 0 Sodium 170 H* Potassium 4.6 Chloride 142 H Carbon Dioxide 24 Anion Gap 4 L BUN 67.5 H Creatinine 1.2 Est GFR (CKD-EPI)AfAm 46.40 Est GFR (CKD-EPI)NonAf 40.04 Random Glucose 86 Calcium 9.2 Phosphorus 3.3 Magnesium 2.8 H Total Bilirubin 0.4 AST 29 ALT 13 Alkaline Phosphatase 104 Total Protein 5.6 L Albumin 2.0 L Urine Color Urine Appearance Urine pH Ur Specific Paradis Urine Protein Urine Glucose (UA) Urine Ketones Urine Blood Urine Nitrite Urine Bilirubin Urine Urobilinogen Ur Leukocyte Esterase Urine WBC (Auto) Urine RBC (Auto) Urine Casts (Auto) U Epithel Cells (Auto) Urine Bacteria (Auto) 05/18/19 00:17 WBC RBC Hgb Hct MCV MCH MCHC RDW Plt Count MPV Absolute Neuts (auto) Neutrophils % Lymphocytes % Monocytes % Eosinophils % Basophils % Nucleated RBC % Sodium Potassium Chloride Carbon Dioxide Anion Gap BUN Creatinine Est GFR (CKD-EPI)AfAm Est GFR (CKD-EPI)NonAf Random Glucose Calcium Phosphorus Magnesium Total Bilirubin AST ALT Alkaline Phosphatase Total Protein Albumin Urine Color Yellow Urine Appearance Turbid Urine pH >= 9.0 H D Ur Specific Paradis 1.018 Urine Protein 2+ H Urine Glucose (UA) Negative Urine Ketones Negative Urine Blood Negative Urine Nitrite Negative Urine Bilirubin Negative Urine Urobilinogen 1.0 Ur Leukocyte Esterase 3+ H Urine WBC (Auto) 239 Urine RBC (Auto) 3 Urine Casts (Auto) 32 U Epithel Cells (Auto) 1.7 Urine Bacteria (Auto) >9000 ASSESSMENT/PLAN: 88 year old female with a significant PMH of severe dementia, HTN, recurrent UTI , constipation, hypothyroidism, protein-calorie malnutrition who was BIBA and presents to the emergency department with generalized weakness and increased lethargy in the setting of severe dehydration to have her assessed for any infections given her recent status of failure to thrive. # Severe Hypernatremia 2/2 dehydration and failure to thrive Sodium is 170 and her BUN above 60, 4.2L free H20 deficit - on d5w 60 cc/hr - TSH #Acute simple cystitis Urinalysis 3+ Leuk est - pt to get antibiotics and IV hydration #Stage IV sacrak decubitus ulcer -Left lower hip/buttock draining malodorous purulent fluid. -3X3 cm - wound culture - palliative consult, doubt pt's family would like to undergo any debridement and thus no surgical consult at this time. - speak w family again today regarding treatment options for this pt. - DR CONNOR wound care consult - f/u b.c., urine cx - f/u lactic acid Visit type - Emergency Visit Emergency Visit: Yes ED Registration Date: 05/18/19 Care time: The patient presented to the Emergency Department on the above date and was hospitalized for further evaluation of their emergent condition. - New Patient This patient is new to me today: Yes Date on this admission: 05/18/19 - Critical Care Critical Care patient: No ATTENDING PHYSICIAN STATEMENT I saw and evaluated the patient. I reviewed the resident's note and discussed the case with the resident. I agree with the resident's findings and plan as documented. SUBJECTIVE: OBJECTIVE: ASSESSMENT AND PLAN:
[2019-05-18] MEDS ORDERED: VANCOMYCIN 1 GRAM (PRE-DOCKED) 1,000 MG/250 ML BAG IVPB ONE ×2 (05:17→06:00)
[2019-05-18] MEDS ORDERED: PIPERACILLIN/TAZOB 3.375 GM 3.375 GM/50 ML BAG IVPB ONE (05:18)
[2019-05-18] MEDS: PIPERACILLIN/TAZOB 3.375 GM 3.375 GM in DEXTROSE 5%-WATER - 50 ML IVPB SCH ×4 (05:30→22:11)
[2019-05-18 08:03] LABS: BLOOD UREA NITROGEN 65.8 mg/dL (7-18); CALCIUM 8.4 mg/dL (8.5-10.1); CREATININE 1.3 mg/dL (0.55-1.3); MAGNESIUM 2.5 mg/dL (1.8-2.4); POTASSIUM 3.3 mmol/L (3.5-5.1)
[2019-05-18 08:36] LABS: HEMATOCRIT 37.6 % (32.4-45.2); MCH 24.6 pg (25.7-33.7); MCHC 29.4 g/dl (32.0-36.0); MEAN CELL VOLUME 83.6 fl (80-96); MEAN PLT VOLUME 12.3 fl (7.5-11.1); PLATELET COUNT 98 K/MM3 (134-434); RBC 4.49 M/mm3 (3.60-5.2); WHITE BLOOD COUNT 13.1 K/mm3 (4.0-10.0)
[2019-05-18] MEDS ORDERED: CEFTRIAXONE 1 GM in DEXTROSE 5%-WATER - 50 ML IVPB SCH (10:00)
--- NOTE | 2019-05-18 11:46 | CONSULT ---
Admitting History and Physical - Primary Care Physician PCP: Tyler Ignacio - Admission History of Present Illness: Per EMR- 88 year old female with a significant PMH of severe dementia, HTN, recurrent UTI , constipation, hypothyroidism, protein-calorie malnutrition who was BIBA and presents to the emergency department with generalized weakness and increased lethargy in the setting of severe dehydration to have her assessed for any infections given her recent status of failure to thrive. Patient is unable to provide a hx due to her clinical condition. All info provided in HPI done through chart review. Patient is on hospice care at this time. The son did call hospice and the ED staff discussed what parameters to follow for treating this patient. As per Hospice and the son, they decided hydration and antibiotics if needed would be acceptable. She is not to have any aggressive measurements such as: intubations, central lines, G-tube feedings or other procedures Last seen by me June 2018- was On puree/Honey thick liquid. Pending consideration for Home Hospice. Swallowing reassessed with brisk swallow without overt signs of aspiration. Severe Protein malnutrition. REC: Dys puree, Magic cup, Ensure Enlive (20 protein), Thin liquid Jun 2018-96 lbs, this admission 98 lbs., Cared for by her son who reports she had been eating puree/drinking thin liquids but "just shut down with food dripping out of her mouth". 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 Cardiovascular: Yes: HTN Endocrine: Yes: Hypothyroidism - Past Surgical History Past Surgical History: Yes: None - Smoking History Smoking history: Never smoked Have you smoked in the past 12 months: No Aproximately how many cigarettes per day: 0 - Alcohol/Substance Use Hx Alcohol Use: No History of Substance Use: reports: None - Social History ADL: Support Services History of Recent Travel: No History - Admission Reason For Visit: URINARY TRACT INFECTION,HYPERNATREMIA - Diagnostics X-ray: Report Reviewed (CXR (-)) - General Mental Status: Awake and Alert (establishes eye contact.), Confused, Flat Affect Attention: Distractible, Moderate Impairment Ability to Follow Directions: Poor Head/Neck Control: Poor Speech Evaluation - Communication Primary Language: CZECH Communication: Yes: Non-Communicable Oral Expression Ability: Yes: Non-Verbal, Non-Vocal - Language/Auditory Comprehension Observation: Able to respond to yes/no queries: No, Comprehends Conversational Speech: No - Swallow Evaluation/Bedside Assessment Current Nutritional Intake: NPO Oral Secretions: Yes: Dryness, R/O Candidiasis, Tongue Coated (r/o thrush vs possibly residue of food.) Dentition: Yes: Edentulous Facial Symmetry at Rest: Symmetrical Against Resistance Opening: Weak Against Resistance Closing: Weak Pucker Lips: Weak, Bilabial Closure (impaired) Smile: Weak Lingual Movement: Reduced Protrusion, Unable to Perform Laryngeal Movement: Unable to Palpate Timing of Swallow: Absent Coughing/Throat Clear: No Change in Voice: No Recommendations - Speech Evaluation, Impression/Plan Impression: r/o thrush vs possibly residue of food on dorsum of tongue. No swallow reflex generated - Disposition Discharge to: Home with Assist - Dysphagia Impressions/Plan Swallowing Skills: Impaired Dysphagia Impressions: Risk of Aspiration, Ongoing Evaluation *Silent aspiration: cannot be R/O at bedside Dysphagia Treatment Plan: Other (mouth care. r/o thrush) - Recommendations Diet Consistency: NPO Liquids: NPO Supplement: IVF if notcontraindicated
--- NOTE | 2019-05-18 12:01 | CONSULT ---
- Consultation REQUESTING PROVIDER: CONSULT REQUEST: We have been asked to surgically evaluate this patient for sacral decubitus. PCP:Wilberto James MD HISTORY OF PRESENT ILLNESS: (obtained from EMR) 88 y/o F with h/o severe dementia, baseline bedbound, HTN, recurrent UTI, constipation, hypothyroidism, protein-calorie malnutrition who is DNR/DNI and on hospice presenting with 2 weeks of difficulty swallowing any PO intake. The patient is bedbound and cannot perform any ADLs. The son feeds her but states that the after 3 spoonfuls she would start to dribble food out of the corner of her mouth. He attempted diluting foods and administering via syringe but still continues to dribble. He also reports patient is increasingly lethargic and less comomunicative over the past 4 days. He states no fever, cough, SOB. Per ED note- discussion with patient family and hospice bus info consultant nurse over the phone, son wishes are for evaluation of source of infection as well as IV hydration. Son does not want heroic efforts, pressors, central access PMHx: as noted above ROS: as noted SHx: Denies tobacco use; no alcohol use; no rec drugs Allergies: NKDA Home Medications Medication Instructions Recorded Levothyroxine [Synthroid -] 50 mcg PO DAILY 06/21/14 Ranitidine [Zantac -] 150 mg PO BID #30 tablet 07/16/18 Allergies Allergy/AdvReac Type Severity Reaction Status Date / Time No Known Allergies Allergy Verified 07/07/18 20:11 ROS: unable to perform due to mental status PE: GENERAL: Awake, does not follow commands, no intentional movements, lethargic, severely cachectic HEAD: No signs of trauma, normocephalic, atraumatic EYES: sclera anicteric, conjunctiva clear ENT: dry mucus membranes LUNGS: Unlabored resp on 2L NC no auditory wheezes, crackles or rhonchi ABDOMEN: Soft, nondistended, nontender, EXTREMITIES: minimal ROM and signifciantly atrophied SKIN: stage Left sacrum-stage 4 decub ulcer @ 10x8 with some undermining, fibrinous exudate and slough with foul odor noted, surrounding tissue grossly intact. right greater trochanter with stage 3 ulcer @2x3cm- superficial with no evidence of undermining, no foul odor or active d/c. Vital Signs Temperature 99.2 F 05/17/19 20:32 Pulse Rate 78 05/18/19 05:52 Respiratory Rate 18 05/18/19 05:52 Blood Pressure 88/48 L 05/18/19 05:52 O2 Sat by Pulse Oximetry (%) 100 05/18/19 05:53 Lab Results WBC 13.1 K/mm3 (4.0-10.0) H 05/18/19 05:50 RBC 4.49 M/mm3 (3.60-5.2) 05/18/19 05:50 Hgb 11.0 GM/dL (10.7-15.3) 05/18/19 05:50 Hct 37.6 % (32.4-45.2) 05/18/19 05:50 MCV 83.6 fl (80-96) 05/18/19 05:50 MCHC 29.4 g/dl (32.0-36.0) L 05/18/19 05:50 RDW 18.0 % (11.6-15.6) H 05/18/19 05:50 Plt Count 98 K/MM3 (134-434) L 05/18/19 05:50 Sodium 164 mmol/L (136-145) H* 05/18/19 05:50 Potassium 3.3 mmol/L (3.5-5.1) L 05/18/19 05:50 Chloride 135 mmol/L (98-107) H 05/18/19 05:50 Carbon Dioxide 22 mmol/L (21-32) 05/18/19 05:50 Anion Gap 7 MMOL/L (8-16) L 05/18/19 05:50 BUN 65.8 mg/dL (7-18) H 05/18/19 05:50 Creatinine 1.3 mg/dL (0.55-1.3) 05/18/19 05:50 Random Glucose 236 mg/dL (74-106) H 05/18/19 05:50 Calcium 8.4 mg/dL (8.5-10.1) L 05/18/19 05:50 Problem List - Problems (1) Sacral decubitus ulcer, stage IV Assessment/Plan: Patient on palliative care with ulcers as described in exam. Although patient could benefit from formal debridement of stage 4 decubitus ulcer and placement of a wound vac, it would also be acceptable to treat with more conservative measures such as daily wound care. -Reposition every two hours while in bed -Air mattress recommended -Use drawsheets and Trendelenburg when repositioning to reduce friction and shear -Manage incontinence via timely cleansing, use of appropriate incontinence disposables and use of barrier ointment to intact skin -Ensure adequate hydration/nutrition, supplementation per primary team -Ensure off-loading to all bony areas (heels, ankles, hips and tailbone) with Allevyn/Optifoam -Clean open wounds with normal saline and apply santyl daily to left sacral decub ulcer. -Re-consult surgery PRN Evaluation and plan discussed with Dr. Devi Code(s): L89.154 - PRESSURE ULCER OF SACRAL REGION, STAGE 4
--- NOTE | 2019-05-18 15:08 | PN ---
Progress Note (short form) - Note Progress Note: ID consult dictated imp/reccd 89 yo female on home hospice bedbound, nonambulatory, nonverbal multiple pressure ulcers cachetic pyuria gram positive bacteremia infected hip ulcer stage 4 sacral ulcer UTI hospice severe dementia thrush vanco level in am continue zosyn add diflucan for thrush overall prognosis is poor d/w son and dr cui
[2019-05-18] MEDS ORDERED: SODIUM CHLORIDE 1,000 ML IV SCH (15:30)
[2019-05-18] MEDS: HEPARIN NA (PORCINE) 5,000 UNITS/ML 1ML VIAL SQ SCH ×2 (15:31→22:01)
--- NOTE | 2019-05-18 15:50 | CONS ---
DATE OF CONSULTATION: DATE OF DICTATION: 05/18/2019 HISTORY: This is an 89-year-old woman. She resides at home with her son. She is on home hospice. At baseline, she has severe dementia. She is nonverbal, she is nonambulatory, and she has sacral decubiti as well as a right hip ulcer. The son feeds her, but it has become harder to feed her at home. She has become increasingly lethargic, and he brought her to the ER. There are no fevers at home. She is not short of breath. The family spoke with hospice, and they decided to bring her in for hydration and to look for infection. PAST MEDICAL HISTORY: Notable for severe dementia, hypertension, recurrent UTI, constipation, hypothyroidism, and malnutrition. PAST SURGICAL HISTORY: Notable for cholecystectomy, hernia repair. SOCIAL HISTORY: There is no history of any travel. She is cared for by her son at home. She reported. She lives with her son. No history of cigarette, alcohol, or substance use. He is the primary scaleman without hospice. ALLERGIES: She has no known drug allergies. MEDICATIONS: At home are Zantac and Synthroid. REVIEW OF SYSTEMS: She has been eating poorly, losing weight. At baseline is nonverbal and nonambulatory. PHYSICAL EXAMINATION: General: A thin woman. She will not follow any commands and resists any movement. Vital Signs: Maximum temperature 99.2, pulse 78, blood pressure 88/48, respiratory rate 18. She is saturating 100% on room air. HEENT: She is normocephalic. Her eyes are anicteric. She has what appears to be some thrush in her mouth. Neck: Without adenopathy. Lungs: Diminished breath sounds at the bases. Heart: Regular rate and rhythm. Abdomen: Soft, nontender. Extremities: Without edema. She has a right hip decubitus ulcer with drainage. She has a left sacral ulcer that is a stage 4 with exposed bone. Her labs are notable for a white count on admission of 16.4, today of 13.1, hemoglobin is 11, platelets are 98,000. Her BUN 65, creatinine 1.3 with a sodium of 164, lactic acid 3.4. LFTs are normal. Urinalysis has 3+ leukocytes with 239 white cells. She was treated in the emergency room with vancomycin and Zosyn. Her blood culture 1 of 4 bottles of gram-positive cocci in clusters. She had a chest x-ray done in the emergency room that shows no signs of infiltrate. In summary, this is an 89-year-old woman on home hospice admitted with worsening lethargy and inability to eat, decubitus ulcers with a sacral ulcer stage 4 and what looks like an infected, draining hip ulcer with evidence of UTI. Would agree with the piperacillin and tazobactam. As well, would treat her with vancomycin given the positive blood cultures. She received a dose this morning so would continue tomorrow. Further recommendations to follow. I spoke with the son at the bedside. ALIA DUCKWORTH M.D. [id number]
[2019-05-18] MEDS ORDERED: SODIUM CHLORIDE 500 ML IV STA (17:42)
--- NOTE | 2019-05-18 17:55 | HOSP ---
Subjective - Review of Symptoms Events since last encounter: Pt seen and examined. She was signed out to me at [address] James. she is 89 y/o with multiple medical problems who was brought by family due to increased lethargy. she is supposedly on Hospice but family brought her here. Apparently, she just got to the floor. in ER Na was not repeated . she is unresponsive, contracted. comfortable dry MM and dry skin CV: RRR Lungs: decreased breath sounds at bases abd: soft , NT Skin : decub ulcer, stage 4, no discharge , no erythema BP 70/37. A/p 1- Severe sepsis 2- Staph bacteremia ( G+ cocci in blood ) 3- Severe dehydration 4- hypotension 5- Stage 4 Decub ulcer plan : - she was placed on D5W last night - dc D5W. avoid rapid correction - bolus 500 cc of NS now ' - if needed will bolus more - once BP is stable , then will place NS continuous - I could not get blood for NA level even with arterial puncture - phlebotomy to try - repeat blood cx - cont vanco per level . random tomorrow - change dose of zosyn due to Cr Cl of 21 % - NPO for now - Dr. gInacio to d/w family code status and whether pressors are something they need, in case her BP does not respond to fluids - of note , patient was on hospice at home Physical Examination Vital Signs: Vital Signs Temperature 97.2 F L 05/18/19 17:33 Pulse Rate 78 05/18/19 17:33 Respiratory Rate 20 05/18/19 17:33 Blood Pressure 72/39 L 05/18/19 17:33 O2 Sat by Pulse Oximetry (%) 100 05/18/19 08:37 Labs: CBC, BMP 05/18/19 05:50 05/18/19 05:50 Critical Care Total Critical Care Time (in minutes): 30 Critical Care Statement: The care of this patient involved high complexity decision making to prevent further life threatening deterioration of the patient 's condition and/or to evaluate & treat vital organ system(s) failure or risk of failure.
--- NOTE | 2019-05-18 18:30 | HOSP ---
Physical Examination Vital Signs: Vital Signs Temperature 97.2 F L 05/18/19 17:33 Pulse Rate 78 05/18/19 17:33 Respiratory Rate 20 05/18/19 17:33 Blood Pressure 72/39 L 05/18/19 17:33 O2 Sat by Pulse Oximetry (%) 100 05/18/19 08:37 Labs: CBC, BMP 05/18/19 05:50 05/18/19 05:50 Hospitalist Encounter Assessment: Spoke with Jaspal Benavidez (Health Care Proxy) on phone. RN at side. Discussed mother's health condition in detail. Pt states he would not like mother to undergo chest compressions if heart stops. Does not want Vasopressors and intubation if needed. RN Griffin Martinez witnessed verbal wishes.
[2019-05-18 19:16] LABS: BLOOD UREA NITROGEN 52.7 mg/dL (7-18); CALCIUM 8.2 mg/dL (8.5-10.1); CREATININE 1.1 mg/dL (0.55-1.3); POTASSIUM 3.2 mmol/L (3.5-5.1)
[2019-05-18] MEDS ORDERED: PIPERACILLIN/TAZOBACTAM 2.25 GM VIAL IVPB ONE (20:41)
[2019-05-18] MEDS ORDERED: DEXTROSE 5%-WATER - 50 ML IVPB ONE (20:41)
--- NOTE | 2019-05-18 21:56 | PN ---
Progress Note (short form) - Note Progress Note: Spoke with son, Jaspal Brandt, at bedside. Discussed pt's fluids and BP. Discussed and attained consent for central line. Son available by home [phone] or mobile
[2019-05-18] MEDS: PIPERACILLIN/TAZOB 2.25 GM 2.25 GM in DEXTROSE 5%-WATER - 50 ML IVPB SCH (22:01)
[2019-05-19] MEDS: FLUCONAZOLE 100 MG/NS 50 ML IVPB SCH ×2 (00:01→16:02)
[2019-05-19] MEDS ORDERED: PIPERACILLIN/TAZOBACTAM 2.25 GM VIAL IVPB ONE ×4 (01:30→22:05)
[2019-05-19] MEDS ORDERED: DEXTROSE 5%-WATER - 50 ML IVPB ONE ×4 (01:31→22:05)
[2019-05-19] MEDS: PIPERACILLIN/TAZOB 2.25 GM 2.25 GM in DEXTROSE 5%-WATER - 50 ML IVPB SCH ×4 (02:07→22:37)
[2019-05-19] MEDS: COLLAGENASE CLOSTRIDIUM HIST. 30 GRAMS TUBE TP SCH ×2 (03:20→10:27)
[2019-05-19] MEDS ORDERED: SODIUM CHLORIDE 0.45% 1,000 ML IV SCH (04:15)
[2019-05-19] MEDS: HEPARIN NA (PORCINE) 5,000 UNITS/ML 1ML VIAL SQ SCH ×3 (06:36→22:38)
[2019-05-19] MEDS ORDERED: DEXTROSE 50%-WATER 25 GM/50 ML DISP.SYRIN ONE ×2 (07:10→14:34)
[2019-05-19] MEDS ORDERED: DEXTROSE 50%-WATER - 25 GM/50 ML VIAL IVPUSH ONE ×3 (07:10→23:19)
[2019-05-19] MEDS ORDERED: SODIUM CHLORIDE 500 ML IV STA ×4 (07:11→15:02)
--- NOTE | 2019-05-19 09:53 | PN ---
Teaching Attending Note Name of Resident: Padmaja Henderson ATTENDING PHYSICIAN STATEMENT I saw and evaluated the patient. I reviewed the resident's note and discussed the case with the resident. I agree with the resident's findings and plan as documented. SUBJECTIVE: Patient is lying in bed with non verbal, cachectic. with hx of dementia OBJECTIVE: Vital Signs Temperature 98.3 F 05/19/19 08:45 Pulse Rate 75 05/19/19 09:23 Respiratory Rate 20 05/19/19 09:23 Blood Pressure 90/51 L 05/19/19 09:23 O2 Sat by Pulse Oximetry (%) 98 05/19/19 09:00 GENERAL: The patient is unresponsive, contracted. comfortable HEAD: Normal with no signs of trauma. EYES: PERRL, extraocular movements intact, sclera anicteric, conjunctiva clear. ENT: Ears normal, dry mucus membrane , dry skin NECK: Trachea midline, full range of motion, supple. LUNGS: decreased Breath sounds bl , no wheezes, no crackles, no accessory muscle use. HEART: Regular rate and rhythm, S1, S2 positive, SHIMON 2/6 , no rub or gallop. ABDOMEN: Soft, nontender, nondistended, normoactive bowel sounds, no guarding, no rebound, no hepatosplenomegaly, no masses. EXTREMITIES: 2+ pulses, warm, well-perfused, no edema. NEUROLOGICAL: Cranial nerves II through XII grossly intact. gait not observed. PSYCH: bedridden, contracted, cachectic SKIN: Warm ,dry skin decub ulcer, stage 4, no discharge , no erythema , drsainage from the right hip area CBCD WBC 13.1 K/mm3 (4.0-10.0) H 05/18/19 05:50 RBC 4.49 M/mm3 (3.60-5.2) 05/18/19 05:50 Hgb 11.0 GM/dL (10.7-15.3) 05/18/19 05:50 Hct 37.6 % (32.4-45.2) 05/18/19 05:50 MCV 83.6 fl (80-96) 05/18/19 05:50 MCHC 29.4 g/dl (32.0-36.0) L 05/18/19 05:50 RDW 18.0 % (11.6-15.6) H 05/18/19 05:50 Plt Count 98 K/MM3 (134-434) L 05/18/19 05:50 MPV 12.3 fl (7.5-11.1) H 05/18/19 05:50 CMP Sodium 157 mmol/L (136-145) H 05/19/19 02:00 Potassium 3.2 mmol/L (3.5-5.1) L 05/18/19 18:00 Chloride 126 mmol/L (98-107) H 05/18/19 18:00 Carbon Dioxide 25 mmol/L (21-32) 05/18/19 18:00 Anion Gap 7 MMOL/L (8-16) L 05/18/19 18:00 BUN 52.7 mg/dL (7-18) H 05/18/19 18:00 Creatinine 1.1 mg/dL (0.55-1.3) 05/18/19 18:00 Random Glucose 107 mg/dL (74-106) H 05/18/19 18:00 Calcium 8.2 mg/dL (8.5-10.1) L 05/18/19 18:00 Total Bilirubin 0.4 mg/dL (0.2-1) 05/17/19 22:32 AST 29 U/L (15-37) 05/17/19 22:32 ALT 13 U/L (13-61) 05/17/19 22:32 Alkaline Phosphatase 104 U/L (45-117) 05/17/19 22:32 Total Protein 5.6 g/dl (6.4-8.2) L 05/17/19 22:32 Albumin 2.0 g/dl (3.4-5.0) L 05/17/19 22:32 Current Medications Generic Name Dose Route Start Last Admin Trade Name Freq PRN Reason Stop Dose Admin Collagenase 1 applic 05/18/19 16:00 05/19/19 03:20 Santyl - TP 1 applic DAILY GLORY Administration Protocol Heparin Sodium (Porcine) 5,000 unit 05/18/19 14:00 05/19/19 06:36 Heparin - SQ 5,000 unit TID GLORY Administration Fluconazole 50 mls @ 100 mls/hr 05/18/19 16:15 05/19/19 00:01 Diflucan 100 Mg/Ns Premixed Ivpb - IVPB 100 mls/hr DAILY GLORY Administration Piperacillin Sod/Tazobactam 50 mls @ 100 mls/hr 05/19/19 09:00 05/19/19 09:19 Sod 2.25 gm/ Dextrose IVPB 100 mls/hr Q6H-IV GLORY Administration Protocol Sodium Chloride 1,000 mls @ 83 mls/hr 05/19/19 04:15 05/19/19 05:04 1/2 Normal Saline IV 83 mls/hr ASDIR GLORY Administration Vancomycin HCl 1,000 mg/ 250 mls @ 166.667 mls/hr 05/19/19 09:33 Dextrose IVPB 05/19/19 11:02 ONCE ONE Protocol Home Medications Medication Instructions Recorded Levothyroxine [Synthroid -] 50 mcg PO DAILY 06/21/14 Ranitidine [Zantac -] 150 mg PO BID #30 tablet 07/16/18 Microbiology 05/19/19 12:05 Buttock - Right Gram Stain - Final 05/19/19 12:05 Buttock - Right Wound Culture - Preliminary Lactose Fermenting Neg Bacilli Non Lactose Fermenting Gnb Staphylococcus Coagulase Neg 05/17/19 22:32 Blood - Peripheral Venous Blood Culture - Preliminary Staphylococcus Latex Coag Pos 05/18/19 18:00 Blood - Peripheral Venous Blood Culture - Preliminary Staphylococcus Latex Coag Pos 05/18/19 00:17 Urine - Urine Clean Catch Urine Culture - Final Klebsiella Pneumoniae 05/17/19 22:32 Blood - Peripheral Venous Blood Culture - Final Staphylococcus Aureus 05/18/19 18:15 Blood - Peripheral Venous Blood Culture - Preliminary Pending Organism Assessment and plan: Patient is an 89 y/o with home hospice was brought in by the family member due to increased lethargy. she is supposedly on home Hospice care but family brought her here. # Acute hypernatremia on ivf continue, nephro is on the case # Severe sepsis on iv abx # Staph bacteremia ( G+ cocci in blood ) on abx # Severe dehydration on ivf # hypotension due to severe dehydration # Stage 4 Decub ulcer and positive drainage from the right hip. on Collagenase continue DVt px; heparin
[2019-05-19] MEDS ORDERED: PIPERACILLIN/TAZOB 3.375 GM 3.375 GM in DEXTROSE 5%-WATER - 50 ML IVPB SCH (10:00)
[2019-05-19] MEDS ORDERED: VANCOMYCIN 1 GRAM (PRE-DOCKED) 1,000 MG/250 ML BAG IVPB ONE (10:00)
[2019-05-19] MEDS ORDERED: PT OWN MED DRAWER 7, Y5N ONE (10:17)
--- NOTE | 2019-05-19 11:22 | PN ---
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 Looks comfortable. Continue NPO including medication, if possible.
--- NOTE | 2019-05-19 11:55 | CONSULT ---
Consultation: REQUESTING PROVIDER: Dr. Roberts CONSULT REQUEST: We have been asked to medically evaluate this patient for Hypotension. HISTORY OF PRESENT ILLNESS: Pt. is an 88 y.o. F with PMHx. of severe dementia, HTN, recurrent UTI, constipation, hypothyroidism, protein-calorie malnutrition who was BIBA and presented with generalized weakness and increased lethargy and severe dehydration to have her assessed for any infections given her recent status of failure to thrive. Patient is unable to provide a hx due to her clinical condition. All info provided in HPI done through chart review. Patient is on hospice care at this time. The son did call hospice and the ED staff discussed what parameters to follow for treating this patient. As per Hospice and the son , they decided hydration and antibiotics if needed would be acceptable. Per chart review and discussion with primary team Pt. can have central lines and intubation but no chest compressions. HCP is Jaspal Benavidez (son) REVIEW OF SYSTEMS: Could not obtain. PHYSICAL EXAMINATION Vital Signs - 24 hr 05/18/19 05/18/19 05/18/19 17:33 18:00 18:30 Temperature 97.2 F L 97.2 F L 97.6 F Pulse Rate 78 Respiratory 20 Rate Blood Pressure 72/39 L O2 Sat by Pulse Oximetry (%) 05/18/19 05/18/19 05/18/19 18:56 19:45 19:48 Temperature 98.1 F Pulse Rate 85 59 L 80 Respiratory 20 18 20 Rate Blood Pressure 72/40 L 88/44 L 102/51 L O2 Sat by Pulse 100 Oximetry (%) 05/19/19 05/19/19 05/19/19 01:00 06:33 08:45 Temperature 98.5 F 98.2 F 98.3 F Pulse Rate 83 83 81 Respiratory 20 20 20 Rate Blood Pressure 94/48 L 87/21 L 83/46 L O2 Sat by Pulse Oximetry (%) 05/19/19 05/19/19 09:00 09:23 Temperature Pulse Rate 75 Respiratory 20 20 Rate Blood Pressure 90/51 L O2 Sat by Pulse 98 Oximetry (%) GENERAL: Awake, arouses to stimulation HEAD: Normal with no signs of trauma. EYES: Pupils equal, round and reactive to light, sclera anicteric, conjunctiva clear. EARS, NOSE, THROAT: Ears normal, nares patent, oropharynx clear without exudates. Dry mucous membranes. NECK: Normal range of motion, supple without lymphadenopathy, JVD, or masses. LUNGS: Breath sounds equal, clear to auscultation bilaterally. No wheezes, and no crackles. No accessory muscle use. HEART: Regular rate and rhythm, normal S1 and S2 without murmur ABDOMEN: Soft, diffuse tenderness to palpation? or from increased pressure on decubitus ulcer?, not distended, normoactive bowel sounds MUSCULOSKELETAL: Large ~4inx 4in stage 4 decubitus ulcer, with purulence and drainage UPPER EXTREMITIES: 2+ radial pulse, warm, well-perfused. No cyanosis. No clubbing. No peripheral edema. LOWER EXTREMITIES: 2+ dorsal pedal pulses, warm, well-perfused. LLE old scar. No calf tenderness. No peripheral edema. NEUROLOGICAL: Non-verbal, unable to obtain PSYCHIATRIC: Cooperative. Good eye contact. Appropriate mood and affect. SKIN: Warm, dry, lesions as above Laboratory Results - last 24 hr 05/18/19 05/18/19 05/18/19 18:00 18:00 18:00 Sodium 157 H 157 H Potassium 3.2 L Chloride 126 H Carbon Dioxide 25 Anion Gap 7 L BUN 52.7 H Creatinine 1.1 Est GFR (CKD-EPI)AfAm 51.55 Est GFR (CKD-EPI)NonAf 44.48 POC Glucometer Random Glucose 107 H Lactic Acid 3.7 H* Calcium 8.2 L Random Vancomycin 05/19/19 05/19/19 05/19/19 02:00 06:42 08:06 Sodium 157 H Potassium Chloride Carbon Dioxide Anion Gap BUN Creatinine Est GFR (CKD-EPI)AfAm Est GFR (CKD-EPI)NonAf POC Glucometer 63 178 Random Glucose Lactic Acid Calcium Random Vancomycin 05/19/19 08:07 Sodium Potassium Chloride Carbon Dioxide Anion Gap BUN Creatinine Est GFR (CKD-EPI)AfAm Est GFR (CKD-EPI)NonAf POC Glucometer Random Glucose Lactic Acid Calcium Random Vancomycin 2.4 L Active Medications Home Medications Medication Instructions Recorded Levothyroxine [Synthroid -] 50 mcg PO DAILY 06/21/14 Ranitidine [Zantac -] 150 mg PO BID #30 tablet 07/16/18 Current Medications Collagenase (Santyl -) 1 applic TP DAILY GLORY; Protocol Last Admin: 05/19/19 10:27 Dose: 1 applic Heparin Sodium (Porcine) (Heparin -) 5,000 unit SQ TID GLORY Last Admin: 05/19/19 06:36 Dose: 5,000 unit Fluconazole (Diflucan 100 Mg/Ns Premixed Ivpb -) 50 mls @ 100 mls/hr IVPB DAILY [facility] Last Admin: 05/19/19 00:01 Dose: 100 mls/hr Piperacillin Sod/Tazobactam (Sod 2.25 gm/ Dextrose) 50 mls @ 100 mls/hr IVPB Q6H-IV GLORY; Protocol Last Admin: 05/19/19 09:19 Dose: 100 mls/hr Sodium Chloride (1/2 Normal Saline) 1,000 mls @ 83 mls/hr IV ASDIR GLORY Last Admin: 05/19/19 05:04 Dose: 83 mls/hr ASSESSMENT/PLAN: #Infectious Disease c/w Fluconazole and Zosyn c/w collagenase c/w IVF BCx. positive for Gram + cocci in clusters UA: 3+ LE, 2+ protein, 329 WBCs, turbid, pH 9.0+ LA: 3.7 ID consult appreciated clarify GOC with family--> If HCP not amenable to surgical intervention then source of infection is not going to be corrected. suggest surgery consult to evaluate for aggressive intervention #Endocrine Hyothyroidism--> c/w Synthroid(convert to IV) #Gastrointestinal GERD--> suggest substitute Protonix for Zantac #FEN 1/2NS @83 monitor electrolytes and replete as needed On Hospice, evaluate for PEG if HCP allows #DVT Ppx. Hep SQ TID Dispo: Will continue to revaluate Pt. pending response to IV fluid bolus, repeat CBC and CMP, and GOC discussion with family. Thank you for this consultative opportunity. Visit type - Emergency Visit Emergency Visit: Yes ED Registration Date: 05/18/19 Care time: The patient presented to the Emergency Department on the above date and was hospitalized for further evaluation of their emergent condition. - New Patient This patient is new to me today: Yes Date on this admission: 05/19/19 - Critical Care Critical Care patient: No ATTENDING PHYSICIAN STATEMENT I saw and evaluated the patient. I reviewed the resident's note and discussed the case with the resident. I agree with the resident's findings and plan as documented. SUBJECTIVE: OBJECTIVE: ASSESSMENT AND PLAN:
--- NOTE | 2019-05-19 12:27 | CONSULT ---
Consultation: REQUESTING PROVIDER: Dr. Tyler CONSULT SERVICE: Nephrology HISTORY OF PRESENT ILLNESS: Patient is an 89 year old female with history of dementia, hypertension, hypothyroidism, recurrent UTI, protein calorie malnutrition, presented with complaint of weakness, lethargy. Noted that patient had diminished oral intake. Per chart review; Chest radiograph revealed no acute infiltrates. Patient was found to be hypernatremic to 170 upon admission. Urinalysis revealed significant urinary tract infection. Patient with severe sepsis; blood cultures currently growing gram positive cocci in clusters. Urine cultures grow lactose fermenting gram negative bacilli. Past medical history: dementia, hypertension, hypothyroidism, recurrent UTI, Past surgical history: cholecystectomy, hernia repair Family history: unable to obtain Allergies: NKDA Social: Negative documented cigarette smoking, alcohol consumption, or illicit drug use. REVIEW OF SYSTEMS: As per HPI. Unable to obtain further due to patient's clinical status. PHYSICAL EXAMINATION Vital Signs - 24 hr 05/18/19 05/18/19 05/18/19 17:33 18:00 18:30 Temperature 97.2 F L 97.2 F L 97.6 F Pulse Rate 78 Respiratory 20 Rate Blood Pressure 72/39 L O2 Sat by Pulse Oximetry (%) 05/18/19 05/18/19 05/18/19 18:56 19:45 19:48 Temperature 98.1 F Pulse Rate 85 59 L 80 Respiratory 20 18 20 Rate Blood Pressure 72/40 L 88/44 L 102/51 L O2 Sat by Pulse 100 Oximetry (%) 05/19/19 05/19/19 05/19/19 01:00 06:33 08:45 Temperature 98.5 F 98.2 F 98.3 F Pulse Rate 83 83 81 Respiratory 20 20 20 Rate Blood Pressure 94/48 L 87/21 L 83/46 L O2 Sat by Pulse Oximetry (%) 05/19/19 05/19/19 09:00 09:23 Temperature Pulse Rate 75 Respiratory 20 20 Rate Blood Pressure 90/51 L O2 Sat by Pulse 98 Oximetry (%) GENERAL: Sleepy. Minimally responsive. HEENT: PERRL. Dry mucous membranes. LUNGS: Clear to auscultation bilaterally. No wheezes, and no crackles. No accessory muscle use. HEART: Regular rate and rhythm, normal S1 and S2 without murmur, rub or gallop. ABDOMEN: Soft, nontender, not distended, normoactive bowel sounds. EXTREMITIES: 2+ pulses, cool extremities. No peripheral edema. NEUROLOGICAL: Lethargic. SKIN: Cool, dry. Stage IV sacral decubitus ulcer. Right greater trochanter stage III ulcer. Laboratory Results - last 24 hr 05/18/19 05/18/19 05/18/19 18:00 18:00 18:00 Sodium 157 H 157 H Potassium 3.2 L Chloride 126 H Carbon Dioxide 25 Anion Gap 7 L BUN 52.7 H Creatinine 1.1 Est GFR (CKD-EPI)AfAm 51.55 Est GFR (CKD-EPI)NonAf 44.48 POC Glucometer Random Glucose 107 H Lactic Acid 3.7 H* Calcium 8.2 L Random Vancomycin 05/19/19 05/19/19 05/19/19 02:00 06:42 08:06 Sodium 157 H Potassium Chloride Carbon Dioxide Anion Gap BUN Creatinine Est GFR (CKD-EPI)AfAm Est GFR (CKD-EPI)NonAf POC Glucometer 63 178 Random Glucose Lactic Acid Calcium Random Vancomycin 05/19/19 08:07 Sodium Potassium Chloride Carbon Dioxide Anion Gap BUN Creatinine Est GFR (CKD-EPI)AfAm Est GFR (CKD-EPI)NonAf POC Glucometer Random Glucose Lactic Acid Calcium Random Vancomycin 2.4 L Active Medications Generic Name Dose Route Start Last Admin Trade Name Freq PRN Reason Stop Dose Admin Collagenase 1 applic 05/18/19 16:00 05/19/19 10:27 Santyl - TP 1 applic DAILY GLORY Administration Protocol Heparin Sodium (Porcine) 5,000 unit 05/18/19 14:00 05/19/19 06:36 Heparin - SQ 5,000 unit TID GLORY Administration Fluconazole 50 mls @ 100 mls/hr 05/18/19 16:15 05/19/19 00:01 Diflucan 100 Mg/Ns Premixed Ivpb - IVPB 100 mls/hr DAILY GLORY Administration Piperacillin Sod/Tazobactam 50 mls @ 100 mls/hr 05/19/19 09:00 05/19/19 09:19 Sod 2.25 gm/ Dextrose IVPB 100 mls/hr Q6H-IV GLORY Administration Protocol Sodium Chloride 1,000 mls @ 83 mls/hr 05/19/19 04:15 05/19/19 05:04 1/2 Normal Saline IV 83 mls/hr ASDIR GLORY Administration ASSESSMENT/PLAN: Hypernatremia -Initial sodium at admission 170; improving to 157 this morning. -Free water defecit calculated approx 2 liters. -Fluids switched to 0.45% Normal Saline. -Gentle re-hydration. Goal not to exceed Sodium correction of 8mmol/ L within 24 hours. Severe sepsis -Patient receiving IV fluid resuscitation, however blood pressure does not appear responsive, with tenuous MAP. -Noted that consent obtained for central line. If not fluid responsive, consider initiating pressors as needed to maintain MAP > 65 -Continue antibiotics per ID Disposition: We will continue to follow the patient. Thank you for this consultative opportunity. Visit type - Emergency Visit Emergency Visit: Yes ED Registration Date: 05/18/19 Care time: The patient presented to the Emergency Department on the above date and was hospitalized for further evaluation of their emergent condition. - New Patient This patient is new to me today: Yes Date on this admission: 05/19/19 - Critical Care Critical Care patient: No ATTENDING PHYSICIAN STATEMENT I saw and evaluated the patient. I reviewed the resident's note and discussed the case with the resident. I agree with the resident's findings and plan as documented. SUBJECTIVE: OBJECTIVE: ASSESSMENT AND PLAN:
--- NOTE | 2019-05-19 12:31 | PN ---
Progress Note (short form) - Note Progress Note: doing poorly blood cultures with GPC clusters on vanco/zosyn Vital Signs Period Temp Pulse Resp BP Sys/Chinchilla Pulse Ox Last 24 Hr 97.2 F-98.5 F 59-85 18-20 72-102/21-51 98-100 cachectic with bitemporal wasting no thrush cor-rrr lungs decreased bs at bases abd soft,nt ext no edema ulcers seen yesterday CBC, BMP 05/18/19 05:50 05/19/19 02:00 Microbiology 05/18/19 18:15 Blood - Peripheral Venous Blood Culture - Preliminary Pending Organism 05/18/19 18:00 Blood - Peripheral Venous Blood Culture - Preliminary Pending Organism 05/18/19 00:17 Urine - Urine Clean Catch Urine Culture - Preliminary Lactose Fermenting Neg Bacilli 05/17/19 22:32 Blood - Peripheral Venous Blood Culture - Preliminary Presumptive Mssa (Pbp2a Neg) 05/17/19 22:32 Blood - Peripheral Venous Blood Culture - Preliminary Pending Organism Pending Organism#2 a/p gram positive bacteremia-staph infected hip ulcer stage 4 sacral ulcer UTI hospice care at home severe dementia thrush vanco/zosyn to continue discussions with family regarding goals of care f/u blood culture results in am wound care for pressure ulcers overall prognosis is poor
--- NOTE | 2019-05-19 13:14 | PN ---
Physical Exam: SUBJECTIVE: Patient seen and examined. Pt is non-verbal. OBJECTIVE: Vital Signs Period Temp Pulse Resp BP Sys/Chinchilla Pulse Ox Last 24 Hr 97.2 F-98.5 F 59-85 18-20 72-102/21-51 98-100 GENERAL: The patient is somnolent, minimally responsive HEAD: Normal with no signs of trauma. Tooth loss. EYES: PERRL, extraocular movements intact, sclera anicteric, conjunctiva clear. No ptosis. ENT: Ears normal, nares patent, dry mucous membranes. NECK: Trachea midline LUNGS: Clear to auscultation bilaterally, no wheezes HEART: Regular rate and rhythm, no murmur ABDOMEN: Soft, nontender, nondistended, normoactive bowel sounds EXTREMITIES: Warm, well-perfused, no edema. NEUROLOGICAL: Follows voices and makes eye contact. PSYCH: Normal mood, normal affect. SKIN: Warm, dry, sacral decubitus and right trochanteric ulcers Laboratory Results - last 24 hr 05/18/19 05/18/19 05/18/19 18:00 18:00 18:00 Sodium 157 H 157 H Potassium 3.2 L Chloride 126 H Carbon Dioxide 25 Anion Gap 7 L BUN 52.7 H Creatinine 1.1 Est GFR (CKD-EPI)AfAm 51.55 Est GFR (CKD-EPI)NonAf 44.48 POC Glucometer Random Glucose 107 H Lactic Acid 3.7 H* Calcium 8.2 L Random Vancomycin 05/19/19 05/19/19 05/19/19 02:00 06:42 08:06 Sodium 157 H Potassium Chloride Carbon Dioxide Anion Gap BUN Creatinine Est GFR (CKD-EPI)AfAm Est GFR (CKD-EPI)NonAf POC Glucometer 63 178 Random Glucose Lactic Acid Calcium Random Vancomycin 05/19/19 08:07 Sodium Potassium Chloride Carbon Dioxide Anion Gap BUN Creatinine Est GFR (CKD-EPI)AfAm Est GFR (CKD-EPI)NonAf POC Glucometer Random Glucose Lactic Acid Calcium Random Vancomycin 2.4 L Active Medications Generic Name Dose Route Start Last Admin Trade Name Freq PRN Reason Stop Dose Admin Collagenase 1 applic 05/18/19 16:00 05/19/19 10:27 Santyl - TP 1 applic DAILY GLORY Administration Protocol Heparin Sodium (Porcine) 5,000 unit 05/18/19 14:00 05/19/19 06:36 Heparin - SQ 5,000 unit TID GLORY Administration Fluconazole 50 mls @ 100 mls/hr 05/18/19 16:15 05/19/19 00:01 Diflucan 100 Mg/Ns Premixed Ivpb - IVPB 100 mls/hr DAILY GLORY Administration Piperacillin Sod/Tazobactam 50 mls @ 100 mls/hr 05/19/19 09:00 05/19/19 09:19 Sod 2.25 gm/ Dextrose IVPB 100 mls/hr Q6H-IV GLORY Administration Protocol Sodium Chloride 1,000 mls @ 83 mls/hr 05/19/19 04:15 05/19/19 05:04 1/2 Normal Saline IV 83 mls/hr ASDIR GLORY Administration ASSESSMENT/PLAN: Ms. Rust is an 89y/o female with dementia, HTN, recurrent UTI, constipation, hypothyroidism, and malnutrition who presents with increased weakness and lethargy. Pt was admitted for severe sepsis 2/2 UTI. #severe sepsis 2/2 UTI and bacteremia UA was leuk esterase positive. Prelim blood cx presumptive MSSA. -urine cx pending -diflucan day 2 -zosyn day 2 -IV fluids for hypotension #hypernatremia likely 2/2 severe dehydration and malnutrition 157 -D5 1/2NS -regular monitoring of BMP, not to drop more than 8 points in 24 hours DVT Ppx heparin FEN D51/2NS 83mL/hr monitor sodium NPO Visit type - Emergency Visit Emergency Visit: Yes ED Registration Date: 05/18/19 Care time: The patient presented to the Emergency Department on the above date and was hospitalized for further evaluation of their emergent condition. - New Patient This patient is new to me today: Yes Date on this admission: 05/19/19 - Critical Care Critical Care patient: No - Discharge Referral Referred to [facility] No ATTENDING PHYSICIAN STATEMENT I saw and evaluated the patient. I reviewed the resident's note and discussed the case with the resident. I agree with the resident's findings and plan as documented. SUBJECTIVE: OBJECTIVE: ASSESSMENT AND PLAN:
[2019-05-19] MEDS ORDERED: SODIUM CHLORIDE 1,000 ML IV SCH (15:45)
[2019-05-19] MEDS ORDERED: DEXTROSE 5%-0.45% SALINE 1,000 ML IV SCH (18:15)
[2019-05-19] MEDS ORDERED: DEXTROSE 5%-NORMAL SALINE 1,000 ML IV SCH (18:15)
--- NOTE | 2019-05-19 20:40 | PN ---
Teaching Attending Note Name of Resident: Jesus Matos (Nephrology) ATTENDING PHYSICIAN STATEMENT I saw and evaluated the patient. I reviewed the resident's note and discussed the case with the resident. I agree with the resident's findings and plan as documented. Renal Pt is an 89 year old female with pmhx of dementia, htn, uti, and hypothyroidism who was admitted with lethargy. She was found to be hypernatremic. I was called to evaluate her for hypernatremia. Pt is not able to give much history. Pt is also being treated for sepsis. pmhx dementia htn uti hypothyroidism ros lethargic family hx non contrib nkda Current Medications Generic Name Dose Route Start Last Admin Trade Name Freq PRN Reason Stop Dose Admin Collagenase 1 applic 05/18/19 16:00 05/19/19 10:27 Santyl - TP 1 applic DAILY GLORY Administration Protocol Heparin Sodium (Porcine) 5,000 unit 05/18/19 14:00 05/19/19 15:57 Heparin - SQ 5,000 unit TID GLORY Administration Fluconazole 50 mls @ 100 mls/hr 05/18/19 16:15 05/19/19 16:02 Diflucan 100 Mg/Ns Premixed Ivpb - IVPB 100 mls/hr DAILY GLORY Administration Piperacillin Sod/Tazobactam 50 mls @ 100 mls/hr 05/19/19 09:00 05/19/19 16:43 Sod 2.25 gm/ Dextrose IVPB 100 mls/hr Q6H-IV GLORY Administration Protocol Dextrose/Sodium Chloride 1,000 mls @ 83 mls/hr 05/19/19 18:15 D5-1/2ns - IV ASDIR GLORY Last Vital Signs Temp Pulse Resp BP Pulse Ox 98.4 F 73 20 89/40 L 98 05/19/19 18:00 05/19/19 18:00 05/19/19 18:00 05/19/19 18:00 05/19/19 09:00 Microbiology 05/19/19 12:05 Buttock - Right Gram Stain - Final 05/18/19 18:15 Blood - Peripheral Venous Blood Culture - Preliminary Pending Organism 05/18/19 18:00 Blood - Peripheral Venous Blood Culture - Preliminary Pending Organism 05/18/19 00:17 Urine - Urine Clean Catch Urine Culture - Preliminary Lactose Fermenting Neg Bacilli 05/17/19 22:32 Blood - Peripheral Venous Blood Culture - Preliminary Presumptive Mssa (Pbp2a Neg) 05/17/19 22:32 Blood - Peripheral Venous Blood Culture - Preliminary Pending Organism Pending Organism#2 Laboratory Tests 05/17/19 05/17/19 05/18/19 22:32 22:32 00:17 WBC 16.4 H Sodium 170 H* Urine Protein 2+ H 05/18/19 05/18/19 05/18/19 05:50 05:50 18:00 WBC 13.1 H Sodium 164 H* 157 H Urine Protein 05/18/19 05/19/19 18:00 02:00 WBC Sodium 157 H 157 H Urine Protein Impression 1. hypernatremia 2. ashtyn 3. sepsis 4. hypotension in pt with hx of hypertension 5. recurrent uti 6. dementia 7. 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
[2019-05-20] MEDS ORDERED: DEXTROSE 5%-WATER - 50 ML IVPB ONE ×3 (01:48→15:33)
[2019-05-20] MEDS ORDERED: PIPERACILLIN/TAZOBACTAM 2.25 GM VIAL IVPB ONE ×3 (01:48→15:33)
[2019-05-20] MEDS: PIPERACILLIN/TAZOB 2.25 GM 2.25 GM in DEXTROSE 5%-WATER - 50 ML IVPB SCH ×3 (02:28→17:07)
[2019-05-20] MEDS ORDERED: VANCOMYCIN 1 GM in D5W (PRE-DOCKED) 1,000 MG/250 ML IVPB ONE (06:23)
[2019-05-20] MEDS ORDERED: SODIUM CHLORIDE 500 ML IV STA ×2 (06:25→23:41)
[2019-05-20] MEDS: HEPARIN NA (PORCINE) 5,000 UNITS/ML 1ML VIAL SQ SCH ×3 (06:40→21:12)
[2019-05-20] MEDS: SODIUM CHLORIDE 0.45% 1,000 ML IV SCH (07:51)
[2019-05-20 09:25] LABS: HEMOGLOBIN 8.7 GM/dL (10.7-15.3); MCH 24.9 pg (25.7-33.7); MCHC 31.1 g/dl (32.0-36.0); MEAN PLT VOLUME 10.7 fl (7.5-11.1); PLATELET COUNT 91 K/MM3 (134-434); RDW 16.8 % (11.6-15.6); WHITE BLOOD COUNT 17.4 K/mm3 (4.0-10.0)
[2019-05-20 09:55] LABS: BLOOD UREA NITROGEN 31.2 mg/dL (7-18); CREATININE 0.9 mg/dL (0.55-1.3)
[2019-05-20 10:10] LABS: CALCIUM 6.9 mg/dL (8.5-10.1); POTASSIUM 2.4 mmol/L (3.5-5.1)
[2019-05-20] MEDS: COLLAGENASE CLOSTRIDIUM HIST. 30 GRAMS TUBE TP SCH (10:54)
[2019-05-20] MEDS: KCL 10 MEQ IVPB 10 MEQ/100 ML INFUS.BAG IVPB SCH ×6 (12:18→23:22)
--- NOTE | 2019-05-20 14:49 | PN ---
Physical Exam: SUBJECTIVE: Patient seen and examined. Non-verbal. Pt's son at bedside this afternoon. He expresses to continue with DNR status, but is ok with intubation, ventilation, and central line access. OBJECTIVE: Vital Signs Period Temp Pulse Resp BP Sys/Chinchilla Pulse Ox Last 24 Hr 98.4 F-99.2 F 73-88 20-20 81-111/38-45 100 GENERAL: The patient is somnolent, minimally responsive HEAD: Normal with no signs of trauma. Tooth loss. EYES: PERRL, extraocular movements intact, conjunctiva clear. ENT: Ears normal, nares patent, dry mucous membranes, oral thrush NECK: Trachea midline LUNGS: Clear to auscultation bilaterally, no wheezes HEART: Regular rate and rhythm, no murmur ABDOMEN: Soft, nontender, nondistended, normoactive bowel sounds EXTREMITIES: Warm, well-perfused, no edema. NEUROLOGICAL: Follows voices and makes eye contact. PSYCH: Normal mood, normal affect. SKIN: Warm, dry, sacral decubitus and right trochanteric ulcers Laboratory Results - last 24 hr 05/19/19 05/19/19 05/20/19 17:51 22:47 00:34 WBC RBC Hgb Hct MCV MCH MCHC RDW Plt Count MPV Sodium Potassium Chloride Carbon Dioxide Anion Gap BUN Creatinine Est GFR (CKD-EPI)AfAm Est GFR (CKD-EPI)NonAf POC Glucometer 88 57 145 Random Glucose Calcium 05/20/19 05/20/19 05/20/19 06:00 06:45 08:45 WBC 17.4 H RBC 3.50 L Hgb 8.7 L Hct 28.0 L D MCV 80.0 MCH 24.9 L MCHC 31.1 L RDW 16.8 H Plt Count 91 L MPV 10.7 D Sodium 154 H Potassium 2.4 L* Chloride 127 H Carbon Dioxide 21 Anion Gap 7 L BUN 31.2 H Creatinine 0.9 Est GFR (CKD-EPI)AfAm 65.70 Est GFR (CKD-EPI)NonAf 56.69 POC Glucometer 87 Random Glucose 77 Calcium 6.9 L* 05/20/19 13:01 WBC RBC Hgb Hct MCV MCH MCHC RDW Plt Count MPV Sodium Potassium Chloride Carbon Dioxide Anion Gap BUN Creatinine Est GFR (CKD-EPI)AfAm Est GFR (CKD-EPI)NonAf POC Glucometer 87 Random Glucose Calcium Active Medications Generic Name Dose Route Start Last Admin Trade Name Rona PRN Reason Stop Dose Admin Collagenase 1 applic 05/18/19 16:00 05/20/19 10:54 Santyl - TP 1 applic DAILY GLORY Administration Protocol Heparin Sodium (Porcine) 5,000 unit 05/18/19 14:00 05/20/19 06:40 Heparin - SQ 5,000 unit TID GLORY Administration Fluconazole 50 mls @ 100 mls/hr 05/18/19 16:15 05/19/19 16:02 Diflucan 100 Mg/Ns Premixed Ivpb - IVPB 100 mls/hr DAILY [facility] Administration Piperacillin Sod/Tazobactam 50 mls @ 100 mls/hr 05/19/19 09:00 05/20/19 12:16 Sod 2.25 gm/ Dextrose IVPB 100 mls/hr Q6H-IV GLORY Administration Protocol Sodium Chloride 1,000 mls @ 1,000 mls/hr 05/20/19 07:00 05/20/19 07:51 1/2 Normal Saline IV 1,000 mls/hr ASDIR GLORY Administration ASSESSMENT/PLAN: Ms. Rust is an 89y/o female with dementia, HTN, recurrent UTI, constipation, hypothyroidism, and malnutrition who presents with increased weakness and lethargy. Pt was admitted for severe sepsis 2/2 UTI. #severe sepsis 2/2 UTI and bacteremia -Urine cx positive for klebsiella -Blood cx positive for staph aureus -Wound cx few bacteria grown -zosyn day 3 -IV fluids for hypotension -palliative care consulted -continue goals of care conversation with son #hypernatremia likely 2/2 severe dehydration and malnutrition 157-->154 -1/2NS -regular monitoring of BMP, not to drop more than 8 points in 24 hours #oral thrush -diflucan day 3 DVT Ppx heparin FEN 1/2 NS monitor sodium NPO code status DNR Visit type - Emergency Visit Emergency Visit: Yes ED Registration Date: 05/18/19 Care time: The patient presented to the Emergency Department on the above date and was hospitalized for further evaluation of their emergent condition. - New Patient This patient is new to me today: No - Critical Care Critical Care patient: No - Discharge Referral Referred to [facility] Med [facility] No ATTENDING PHYSICIAN STATEMENT I saw and evaluated the patient. I reviewed the resident's note and discussed the case with the resident. I agree with the resident's findings and plan as documented. SUBJECTIVE: OBJECTIVE: ASSESSMENT AND PLAN:
--- NOTE | 2019-05-20 15:51 | PN ---
Progress Note, Physician History of Present Illness: Pt seen and examined at bedside. She remains lethargic. - Current Medication List Current Medications: Active Medications Collagenase (Santyl -) 1 applic TP DAILY GLORY; Protocol Last Admin: 05/20/19 10:54 Dose: 1 applic Heparin Sodium (Porcine) (Heparin -) 5,000 unit SQ TID GLORY Last Admin: 05/20/19 15:06 Dose: 5,000 unit Fluconazole (Diflucan 100 Mg/Ns Premixed Ivpb -) 50 mls @ 100 mls/hr IVPB DAILY GLORY Last Admin: 05/19/19 16:02 Dose: 100 mls/hr Piperacillin Sod/Tazobactam (Sod 2.25 gm/ Dextrose) 50 mls @ 100 mls/hr IVPB Q6H-IV GLORY; Protocol Last Admin: 05/20/19 12:16 Dose: 100 mls/hr Sodium Chloride (1/2 Normal Saline) 1,000 mls @ 1,000 mls/hr IV ASDIR GLORY Last Admin: 05/20/19 07:51 Dose: 1,000 mls/hr - Objective Vital Signs: Vital Signs Temperature 98.4 F 05/20/19 06:00 Pulse Rate 74 05/20/19 06:00 Respiratory Rate 20 05/20/19 06:00 Blood Pressure 81/40 L 05/20/19 06:00 O2 Sat by Pulse Oximetry (%) 100 05/19/19 21:00 Constitutional: Yes: Calm, Cachectic Eyes: Yes: Conjunctiva Clear HENT: Yes: Atraumatic Cardiovascular: Yes: S1, S2 Respiratory: Yes: CTA Bilaterally Gastrointestinal: Yes: Soft Genitourinary: Yes: Incontinence Musculoskeletal: Yes: Muscle Weakness Edema: No Neurological: Yes: Lethargy Labs: CBC, BMP 05/20/19 08:45 05/20/19 06:00 Assessment/Plan Current Medications Generic Name Dose Route Start Last Admin Trade Name Freq PRN Reason Stop Dose Admin Collagenase 1 applic 05/18/19 16:00 05/20/19 10:54 Santyl - TP 1 applic DAILY GLORY Administration Protocol Heparin Sodium (Porcine) 5,000 unit 05/18/19 14:00 05/20/19 15:06 Heparin - SQ 5,000 unit TID GLORY Administration Fluconazole 50 mls @ 100 mls/hr 05/18/19 16:15 05/19/19 16:02 Diflucan 100 Mg/Ns Premixed Ivpb - IVPB 100 mls/hr DAILY GLORY Administration Piperacillin Sod/Tazobactam 50 mls @ 100 mls/hr 05/19/19 09:00 05/20/19 12:16 Sod 2.25 gm/ Dextrose IVPB 100 mls/hr Q6H-IV GLORY Administration Protocol Sodium Chloride 1,000 mls @ 1,000 mls/hr 05/20/19 07:00 05/20/19 07:51 1/2 Normal Saline IV 1,000 mls/hr ASDIR GLORY Administration Impression 1. hypernatremia 2. ashtyn 3. sepsis 4. hypotension in pt with hx of hypertension 5. recurrent uti 6. dementia 7. bacteremia Plan - cont fluids - replace potassium - follow repeat labs - check mag - monitor renal function - abx per medical team
[2019-05-20] MEDS ORDERED: DEXTROSE 50%-WATER - 25 GM/50 ML VIAL IVPUSH PRN (16:18)
[2019-05-20] MEDS: FLUCONAZOLE 100 MG/NS 50 ML IVPB SCH (17:06)
[2019-05-20 17:40] LABS: BLOOD UREA NITROGEN 27.5 mg/dL (7-18); CALCIUM 7.3 mg/dL (8.5-10.1); CREATININE 0.9 mg/dL (0.55-1.3); MAGNESIUM 1.9 mg/dL (1.8-2.4)
[2019-05-20 17:48] LABS: POTASSIUM 2.8 mmol/L (3.5-5.1)
--- NOTE | 2019-05-20 17:50 | PN ---
Teaching Attending Note Name of Resident: Padmaja Henderson ATTENDING PHYSICIAN STATEMENT I saw and evaluated the patient. I reviewed the resident's note and discussed the case with the resident. I agree with the resident's findings and plan as documented. SUBJECTIVE: Patient is nonverbal, with very dry mucus membrane, unresponsive. Vital Signs Temperature 99.5 F 05/20/19 14:00 Pulse Rate 99 H 05/20/19 14:00 Respiratory Rate 20 05/20/19 14:00 Blood Pressure 143/68 05/20/19 14:00 O2 Sat by Pulse Oximetry (%) 100 05/19/19 21:00 GENERAL: The patient is unresponsive, contracted. comfortable HEAD: Normal with no signs of trauma. EYES: PERRL, extraocular movements intact, sclera anicteric, conjunctiva clear. ENT: Ears normal, dry mucus membrane , dry skin NECK: Trachea midline, full range of motion, supple. LUNGS: decreased Breath sounds bl , no wheezes, no crackles, no accessory muscle use. HEART: Regular rate and rhythm, S1, S2 positive, SHIMON 2/6 , no rub or gallop. ABDOMEN: Soft, nontender, nondistended, normoactive bowel sounds, no guarding, no rebound, no hepatosplenomegaly, no masses. EXTREMITIES: 2+ pulses, warm, well-perfused, no edema. NEUROLOGICAL: Cranial nerves II through XII grossly intact. bedridden PSYCH: unable to access since patient is nonverbal SKIN: Warm ,dry skin decub ulcer, stage 4, no discharge , no erythema , drsainage from the right hip area CBCD WBC 13.1 K/mm3 (4.0-10.0) H 05/18/19 05:50 RBC 4.49 M/mm3 (3.60-5.2) 05/18/19 05:50 Hgb 11.0 GM/dL (10.7-15.3) 05/18/19 05:50 Hct 37.6 % (32.4-45.2) 05/18/19 05:50 MCV 83.6 fl (80-96) 05/18/19 05:50 MCHC 29.4 g/dl (32.0-36.0) L 05/18/19 05:50 RDW 18.0 % (11.6-15.6) H 05/18/19 05:50 Plt Count 98 K/MM3 (134-434) L 05/18/19 05:50 MPV 12.3 fl (7.5-11.1) H 05/18/19 05:50 CMP Sodium 157 mmol/L (136-145) H 05/19/19 02:00 Potassium 3.2 mmol/L (3.5-5.1) L 05/18/19 18:00 Chloride 126 mmol/L (98-107) H 05/18/19 18:00 Carbon Dioxide 25 mmol/L (21-32) 05/18/19 18:00 Anion Gap 7 MMOL/L (8-16) L 05/18/19 18:00 BUN 52.7 mg/dL (7-18) H 05/18/19 18:00 Creatinine 1.1 mg/dL (0.55-1.3) 05/18/19 18:00 Random Glucose 107 mg/dL (74-106) H 05/18/19 18:00 Calcium 8.2 mg/dL (8.5-10.1) L 05/18/19 18:00 Total Bilirubin 0.4 mg/dL (0.2-1) 05/17/19 22:32 AST 29 U/L (15-37) 05/17/19 22:32 ALT 13 U/L (13-61) 05/17/19 22:32 Alkaline Phosphatase 104 U/L (45-117) 05/17/19 22:32 Total Protein 5.6 g/dl (6.4-8.2) L 05/17/19 22:32 Albumin 2.0 g/dl (3.4-5.0) L 05/17/19 22:32 Current Medications Generic Name Dose Route Start Last Admin Trade Name Freq PRN Reason Stop Dose Admin Collagenase 1 applic 05/18/19 16:00 05/19/19 03:20 Santyl - TP 1 applic DAILY GLORY Administration Protocol Heparin Sodium (Porcine) 5,000 unit 05/18/19 14:00 05/19/19 06:36 Heparin - SQ 5,000 unit TID GLORY Administration Fluconazole 50 mls @ 100 mls/hr 05/18/19 16:15 05/19/19 00:01 Diflucan 100 Mg/Ns Premixed Ivpb - IVPB 100 mls/hr DAILY GLORY Administration Piperacillin Sod/Tazobactam 50 mls @ 100 mls/hr 05/19/19 09:00 05/19/19 09:19 Sod 2.25 gm/ Dextrose IVPB 100 mls/hr Q6H-IV GLORY Administration Protocol Sodium Chloride 1,000 mls @ 83 mls/hr 05/19/19 04:15 05/19/19 05:04 1/2 Normal Saline IV 83 mls/hr ASDIR GLORY Administration Vancomycin HCl 1,000 mg/ 250 mls @ 166.667 mls/hr 05/19/19 09:33 Dextrose IVPB 05/19/19 11:02 ONCE ONE Protocol Home Medications Medication Instructions Recorded Levothyroxine [Synthroid -] 50 mcg PO DAILY 06/21/14 Ranitidine [Zantac -] 150 mg PO BID #30 tablet 07/16/18 Microbiology 05/19/19 12:05 Buttock - Right Gram Stain - Final 05/19/19 12:05 Buttock - Right Wound Culture - Preliminary Lactose Fermenting Neg Bacilli Non Lactose Fermenting Gnb Staphylococcus Coagulase Neg 05/17/19 22:32 Blood - Peripheral Venous Blood Culture - Preliminary Staphylococcus Latex Coag Pos 05/18/19 18:00 Blood - Peripheral Venous Blood Culture - Preliminary Staphylococcus Latex Coag Pos 05/18/19 00:17 Urine - Urine Clean Catch Urine Culture - Final Klebsiella Pneumoniae 05/17/19 22:32 Blood - Peripheral Venous Blood Culture - Final Staphylococcus Aureus 05/18/19 18:15 Blood - Peripheral Venous Blood Culture - Preliminary Pending Organism Assessment and plan: Patient is an 89 y/o with home hospice was brought in by the family member due to increased lethargy. she is supposedly on home Hospice care but family brought her here. # Acute hypernatremia : on IVF , nephro on the case. # Severe sepsis on IV Abx # Staph bacteremia ( G+ cocci in blood ) on IV abx # Severe dehydration on IVF, # hypotension : due to severe dehydration # Stage 4 Decub ulcer and positive drainage from the right hip. # Acute hypokalemia replete
--- NOTE | 2019-05-20 18:17 | PN ---
Progress Note (short form) - Note Progress Note: doing poorly nonverbal lethargic Vital Signs Period Temp Pulse Resp BP Sys/Chinchilla Pulse Ox Last 24 Hr 98.4 F-99.5 F 74-99 20-20 81-143/38-68 100 cor-rrr lungs clear abd soft,nt ext contracted +sacral ulcer to bone , right hip ulcer CBC, BMP 05/20/19 08:45 05/20/19 16:03 Microbiology 05/19/19 12:05 Buttock - Right Gram Stain - Final 05/19/19 12:05 Buttock - Right Wound Culture - Preliminary Lactose Fermenting Neg Bacilli Non Lactose Fermenting Gnb Staphylococcus Coagulase Neg 05/17/19 22:32 Blood - Peripheral Venous Blood Culture - Preliminary Staphylococcus Latex Coag Pos 05/18/19 18:00 Blood - Peripheral Venous Blood Culture - Preliminary Staphylococcus Latex Coag Pos 05/18/19 00:17 Urine - Urine Clean Catch Urine Culture - Final Klebsiella Pneumoniae 05/17/19 22:32 Blood - Peripheral Venous Blood Culture - Final Staphylococcus Aureus 05/18/19 18:15 Blood - Peripheral Venous Blood Culture - Preliminary Pending Organism a/p gram positive bacteremia-staph aureus- MSSA infected hip ulcer stage 4 sacral ulcer UTI-klebsiella hospice care at home severe dementia thrush-resolved switch to cefazolin willl treat both bacteremia and UTI discussions with family regarding goals of care planned for am repeat blood cultures overall prognosis is poor
[2019-05-20] MEDS: ceFAZolin 2 GRAM PREMIX BAG IVPB SCH (18:46)
[2019-05-20] MEDS ORDERED: POTASSIUM CHLORIDE 10 MEQ PREMIX IVPB (POTASSIUM RIDER) IVPB SCH (19:00)
[2019-05-20] MEDS ORDERED: KCL 10 MEQ IVPB 10 MEQ/100 ML INFUS.BAG IVPB SCH (21:30)
[2019-05-20] MEDS ORDERED: POTASSIUM CHLORIDE ORAL LIQUID 20 MEQ/15 ML PO ONE (22:44)
[2019-05-21] MEDS: KCL 10 MEQ IVPB 10 MEQ/100 ML INFUS.BAG IVPB SCH ×8 (00:59→20:41)
[2019-05-21] MEDS: ceFAZolin 2 GRAM PREMIX BAG IVPB SCH ×4 (02:46→23:28)
[2019-05-21 03:38] LABS: BLOOD UREA NITROGEN 27.5 mg/dL (7-18); CALCIUM 7.1 mg/dL (8.5-10.1); CREATININE 0.8 mg/dL (0.55-1.3); POTASSIUM 3.4 mmol/L (3.5-5.1)
[2019-05-21] MEDS: HEPARIN NA (PORCINE) 5,000 UNITS/ML 1ML VIAL SQ SCH ×3 (05:34→23:28)
[2019-05-21] MEDS: SODIUM CHLORIDE 0.45% 1,000 ML IV SCH (08:07)
[2019-05-21] MEDS ORDERED: DEXTROSE 50%-WATER - 25 GM/50 ML VIAL IVPUSH ONE (08:23)
[2019-05-21 08:47] LABS: HEMATOCRIT 29.1 % (32.4-45.2); HEMOGLOBIN 9.2 GM/dL (10.7-15.3); MCH 24.9 pg (25.7-33.7); MCHC 31.5 g/dl (32.0-36.0); MEAN CELL VOLUME 78.9 fl (80-96); MEAN PLT VOLUME 10.9 fl (7.5-11.1); PLATELET COUNT 95 K/MM3 (134-434); RBC 3.69 M/mm3 (3.60-5.2); RDW 16.8 % (11.6-15.6); WHITE BLOOD COUNT 17.7 K/mm3 (4.0-10.0)
[2019-05-21 08:57] LABS: BLOOD UREA NITROGEN 26.7 mg/dL (7-18); CALCIUM 7.3 mg/dL (8.5-10.1); CREATININE 0.9 mg/dL (0.55-1.3); POTASSIUM 3.1 mmol/L (3.5-5.1)
--- NOTE | 2019-05-21 09:39 | PN ---
Progress Note (short form) - Note Progress Note: more alert Vital Signs Period Temp Pulse Resp BP Sys/Chinchilla Pulse Ox Last 24 Hr 98.0 F-99.6 F 72-99 19-20 80-143/36-68 100 cor-rrr lungs clear, decreased bs at bases abd soft,nt ext contracted +sacral ulcer to bone , right hip ulcer CBC, BMP 05/21/19 07:30 05/21/19 07:30 Microbiology 05/19/19 12:05 Buttock - Right Gram Stain - Final 05/19/19 12:05 Buttock - Right Wound Culture - Preliminary Lactose Fermenting Neg Bacilli Non Lactose Fermenting Gnb Staphylococcus Coagulase Neg 05/17/19 22:32 Blood - Peripheral Venous Blood Culture - Preliminary Staphylococcus Latex Coag Pos 05/18/19 18:00 Blood - Peripheral Venous Blood Culture - Preliminary Staphylococcus Latex Coag Pos 05/18/19 00:17 Urine - Urine Clean Catch Urine Culture - Final Klebsiella Pneumoniae 05/17/19 22:32 Blood - Peripheral Venous Blood Culture - Final Staphylococcus Aureus 05/18/19 18:15 Blood - Peripheral Venous Blood Culture - Preliminary Pending Organism a/p MSSA bacteremia Klebsiella UTI infected hip ulcer stage 4 sacral ulcer-clean with exposed bone thrombocytopenia-most likely sepsis severe dementia thrush-resolved switch to cefazolin willl treat both bacteremia and UTI discussions with family regarding goals of care planned for am repeat blood cultures sent overall prognosis is poor
[2019-05-21] MEDS: COLLAGENASE CLOSTRIDIUM HIST. 30 GRAMS TUBE TP SCH (09:45)
[2019-05-21 10:52] LABS: MAGNESIUM 1.8 mg/dL (1.8-2.4)
--- NOTE | 2019-05-21 13:04 | EKG ---
Test Reason : Blood Pressure : / mmHG Vent. Rate : 084 BPM Atrial Rate : 084 BPM P-R Int : 126 ms QRS Dur : 080 ms QT Int : 390 ms P-R-T Axes : 049 029 076 degrees QTc Int : 460 ms NORMAL SINUS RHYTHM WHEN COMPARED WITH ECG OF 07-JUL-2018 19:24, NO SIGNIFICANT CHANGE WAS FOUND Confirmed by LINDA RAMIREZ MD ([id number]) on 05/21/2019 1:03:21 PM Referred By: TRENA VALLADARES Confirmed By:LINDA RAMIREZ MD
[2019-05-21] MEDS: POTASSIUM CHLORIDE 40 MEQ in DEXTROSE 5%-WATER - 1,000 ML IVPB SCH (13:29)
[2019-05-21] MEDS ORDERED: DEXTROSE 5%-WATER - 1,000 ML with POTASSIUM CHLORIDE 40 MEQ IVPB SCH (14:00)
--- NOTE | 2019-05-21 14:04 | PN ---
Progress Note, Physician History of Present Illness: Pt seen and examined a bedside. She is more interactive today but still confused. - Current Medication List Current Medications: Active Medications Cefazolin Sodium/Dextrose (Ancef 2 Gm Premixed Ivpb -) 2 gm IVPB Q8H-IV GLORY Last Admin: 05/21/19 09:56 Dose: 2 gm Collagenase (Santyl -) 1 applic TP DAILY GLORY; Protocol Last Admin: 05/21/19 09:45 Dose: 1 applic Heparin Sodium (Porcine) (Heparin -) 5,000 unit SQ TID GLORY Last Admin: 05/21/19 05:34 Dose: 5,000 unit Potassium Chloride (Potassium Chloride 10 Meq Premix Ivpb -) 10 meq in 100 mls @ 100 mls/hr IVPB Q60M GLORY Stop: 05/21/19 16:59 Potassium Chloride 40 meq/ (Dextrose) 1,020 mls @ 75 mls/hr IVPB .[id number] GLORY - Objective Vital Signs: Vital Signs Temperature 97.5 F L 05/21/19 11:00 Pulse Rate 70 05/21/19 11:00 Respiratory Rate 19 05/21/19 11:00 Blood Pressure 97/49 L 05/21/19 11:00 O2 Sat by Pulse Oximetry (%) 100 05/21/19 09:00 Constitutional: Yes: Calm Eyes: Yes: Conjunctiva Clear HENT: Yes: Atraumatic Neck: Yes: Supple Cardiovascular: Yes: S1, S2 Respiratory: Yes: CTA Bilaterally Gastrointestinal: Yes: Normal Bowel Sounds, Soft Genitourinary: Yes: Incontinence Musculoskeletal: Yes: Muscle Weakness Edema: No Integumentary: Yes: WNL Neurological: Yes: Lethargy Labs: CBC, BMP 05/21/19 07:30 05/21/19 07:30 Assessment/Plan Current Medications Generic Name Dose Route Start Last Admin Trade Name Freq PRN Reason Stop Dose Admin Cefazolin Sodium/Dextrose 2 gm 05/20/19 18:30 05/21/19 09:56 Ancef 2 Gm Premixed Ivpb - IVPB 2 gm Q8H-IV GLORY Administration Collagenase 1 applic 05/18/19 16:00 05/21/19 09:45 Santyl - TP 1 applic DAILY GLORY Administration Protocol Heparin Sodium (Porcine) 5,000 unit 05/18/19 14:00 11/22/19 05:34 Heparin - SQ 5,000 unit TID [facility] Administration Potassium Chloride 10 meq in 100 mls @ 100 mls/hr 05/21/19 14:00 Potassium Chloride 10 Meq Premix Ivpb - IVPB 05/21/19 16:59 Q60M GLORY Potassium Chloride 40 meq/ 1,020 mls @ 75 mls/hr 05/21/19 14:00 Dextrose IVPB .[id number] [facility] Impression 1. hypernatremia 2. ashtyn 3. sepsis 4. hypotension in pt with hx of hypertension 5. recurrent uti 6. dementia 7. bacteremia Plan - change fluids to d5w with potassium - total free water deficit is about 2 liters - will need to discuss GOC with family - mag level normal - monitor renal function - abx per medical team
--- NOTE | 2019-05-21 16:07 | PN ---
Physical Exam: SUBJECTIVE: Patient seen and examined. She is non-verbal. OBJECTIVE: Vital Signs Period Temp Pulse Resp BP Sys/Chinchilla Pulse Ox Last 24 Hr 97.5 F-99.6 F 67-89 18-20 80-111/36-64 100-100 GENERAL: The patient is somnolent, minimally responsive HEAD: Normal with no signs of trauma. Tooth loss. EYES: PERRL, extraocular movements intact, conjunctiva clear. ENT: Ears normal, nares patent, dry mucous membranes, oral thrush NECK: Trachea midline LUNGS: Clear to auscultation bilaterally, no wheezes HEART: Regular rate and rhythm, no murmur ABDOMEN: Soft, nontender, nondistended, normoactive bowel sounds EXTREMITIES: Warm, well-perfused, no edema. NEUROLOGICAL: Follows voices and makes eye contact. PSYCH: Normal mood, normal affect. SKIN: Warm, dry, sacral decubitus and right trochanteric ulcers Laboratory Results - last 24 hr 05/20/19 05/20/19 05/20/19 16:03 16:11 18:04 WBC RBC Hgb Hct MCV MCH MCHC RDW Plt Count MPV Sodium 153 H Potassium 2.8 L* Chloride 125 H Carbon Dioxide 19 L Anion Gap 9 BUN 27.5 H Creatinine 0.9 Est GFR (CKD-EPI)AfAm 65.70 Est GFR (CKD-EPI)NonAf 56.69 POC Glucometer 45 116 Random Glucose 60 L Calcium 7.3 L Magnesium 1.9 05/21/19 05/21/19 05/21/19 02:51 07:30 07:30 WBC 17.7 H RBC 3.69 Hgb 9.2 L Hct 29.1 L MCV 78.9 L MCH 24.9 L MCHC 31.5 L RDW 16.8 H Plt Count 95 L MPV 10.9 Sodium 154 H 155 H Potassium 3.4 L 3.1 L Chloride 127 H 128 H Carbon Dioxide 20 L 21 Anion Gap 7 L 6 L BUN 27.5 H 26.7 H Creatinine 0.8 0.9 Est GFR (CKD-EPI)AfAm 75.76 65.70 Est GFR (CKD-EPI)NonAf 65.36 56.69 POC Glucometer Random Glucose 65 L 69 L Calcium 7.1 L 7.3 L Magnesium 1.8 05/21/19 05/21/19 08:02 11:58 WBC RBC Hgb Hct MCV MCH MCHC RDW Plt Count MPV Sodium Potassium Chloride Carbon Dioxide Anion Gap BUN Creatinine Est GFR (CKD-EPI)AfAm Est GFR (CKD-EPI)NonAf POC Glucometer 72 90 Random Glucose Calcium Magnesium Active Medications Generic Name Dose Route Start Last Admin Trade Name Freq PRN Reason Stop Dose Admin Cefazolin Sodium/Dextrose 2 gm 05/20/19 18:30 05/21/19 09:56 Ancef 2 Gm Premixed Ivpb - IVPB 2 gm Q8H-IV GLORY Administration Collagenase 1 applic 05/18/19 16:00 05/21/19 09:45 Santyl - TP 1 applic DAILY GLORY Administration Protocol Heparin Sodium (Porcine) 5,000 unit 05/18/19 14:00 05/21/19 14:23 Heparin - SQ 5,000 unit TID GLORY Administration Potassium Chloride 10 meq in 100 mls @ 100 mls/hr 05/21/19 14:00 05/21/19 15: 32 Potassium Chloride 10 Meq Premix Ivpb - IVPB 05/21/19 16:59 100 mls/hr Q60M GLORY Administration Potassium Chloride 40 meq/ 1,020 mls @ 75 mls/hr 05/21/19 14:15 Dextrose IVPB Q13H [facility] ASSESSMENT/PLAN: Ms. Rust is an 89y/o female with dementia, HTN, recurrent UTI, constipation, hypothyroidism, and malnutrition who presents with increased weakness and lethargy. Pt was admitted for severe sepsis 2/2 UTI. #severe sepsis 2/2 UTI, bacteremia -Urine cx positive for klebsiella -Blood cx positive for staph aureus -Ancef -IV fluids for hypotension -NG tube placement -Family discussion had today with palliative care (Katie) and myself. Pt's son, Jaspal, expressed wishes for abx, fluids, and nutrition trial. Code status changed to DNR/DNI. #stage 4 decubitus ulcer Clean -Ancef #hypernatremia likely 2/2 severe dehydration and malnutrition #hypokalemia #hyperchloridemia -D5W -Clinimix DVT Ppx heparin FEN D5W monitor Na, K, Mg Clinimix code status DNR/DNI Visit type - Emergency Visit Emergency Visit: Yes ED Registration Date: 05/18/19 Care time: The patient presented to the Emergency Department on the above date and was hospitalized for further evaluation of their emergent condition. - New Patient This patient is new to me today: No - Critical Care Critical Care patient: No - Discharge Referral Referred to [facility] Med P.C.: No ATTENDING PHYSICIAN STATEMENT I saw and evaluated the patient. I reviewed the resident's note and discussed the case with the resident. I agree with the resident's findings and plan as documented. SUBJECTIVE: OBJECTIVE: ASSESSMENT AND PLAN:
[2019-05-21] MEDS ORDERED: DEXTROSE 50%-WATER 25 GM/50 ML DISP.SYRIN ONE (18:18)
[2019-05-21] MEDS: DEXTROSE 50%-WATER - 25 GM/50 ML VIAL IVPUSH ONE ×2 (18:44→20:25)
[2019-05-21] MEDS ORDERED: PT OWN MED DRAWER 7, Y5N ONE (19:04)
--- NOTE | 2019-05-21 20:20 | PN ---
Teaching Attending Note Name of Resident: Padmaja Henderson ATTENDING PHYSICIAN STATEMENT I saw and evaluated the patient. I reviewed the resident's note and discussed the case with the resident. I agree with the resident's findings and plan as documented. SUBJECTIVE: Patient is improving with no acute distress. non verbal. Vital Signs Temperature 97.8 F 05/21/19 18:00 Pulse Rate 76 05/21/19 18:00 Respiratory Rate 18 05/21/19 18:00 Blood Pressure 101/47 L 05/21/19 18:00 O2 Sat by Pulse Oximetry (%) 100 05/21/19 09:00 GENERAL: The patient is unresponsive, contracted. comfortable HEAD: Normal with no signs of trauma. EYES: PERRL, extraocular movements intact, sclera anicteric, conjunctiva clear. ENT: Ears normal, dry mucus membrane , dry skin, eyes open NECK: Trachea midline, full range of motion, supple. LUNGS: decreased Breath sounds bl , no wheezes, no crackles, no accessory muscle use. HEART: Regular rate and rhythm, S1, S2 positive, SHIMON 2/6 , no rub or gallop. ABDOMEN: Soft, NT ,ND, normoactive bowel sounds, no guarding, no rebound, no hepatosplenomegaly, no masses. EXTREMITIES: 2+ pulses, warm, contracted NEUROLOGICAL: Cranial nerves II through XII grossly intact. gait not observed. PSYCH: non verbal unable to access SKIN: Warm ,dry skin decub ulcer, stage 4, no discharge , no erythema , drsainage from the right hip area CBCD WBC 17.7 K/mm3 (4.0-10.0) H 05/21/19 07:30 RBC 3.69 M/mm3 (3.60-5.2) 05/21/19 07:30 Hgb 9.2 GM/dL (10.7-15.3) L 05/21/19 07:30 Hct 29.1 % (32.4-45.2) L 05/21/19 07:30 MCV 78.9 fl (80-96) L 05/21/19 07:30 MCHC 31.5 g/dl (32.0-36.0) L 05/21/19 07:30 RDW 16.8 % (11.6-15.6) H 05/21/19 07:30 Plt Count 95 K/MM3 (134-434) L 05/21/19 07:30 MPV 10.9 fl (7.5-11.1) 05/21/19 07:30 CMP Sodium 155 mmol/L (136-145) H 05/21/19 07:30 Potassium 3.1 mmol/L (3.5-5.1) L 05/21/19 07:30 Chloride 128 mmol/L (98-107) H 05/21/19 07:30 Carbon Dioxide 21 mmol/L (21-32) 05/21/19 07:30 Anion Gap 6 MMOL/L (8-16) L 05/21/19 07:30 BUN 26.7 mg/dL (7-18) H 05/21/19 07:30 Creatinine 0.9 mg/dL (0.55-1.3) 05/21/19 07:30 Random Glucose 69 mg/dL (74-106) L 05/21/19 07:30 Calcium 7.3 mg/dL (8.5-10.1) L 05/21/19 07:30 Total Bilirubin 0.4 mg/dL (0.2-1) 05/17/19 22:32 AST 29 U/L (15-37) 05/17/19 22:32 ALT 13 U/L (13-61) 05/17/19 22:32 Alkaline Phosphatase 104 U/L (45-117) 05/17/19 22:32 Total Protein 5.6 g/dl (6.4-8.2) L 05/17/19 22:32 Albumin 2.0 g/dl (3.4-5.0) L 05/17/19 22:32 Current Medications Generic Name Dose Route Start Last Admin Trade Name Freq PRN Reason Stop Dose Admin Cefazolin Sodium/Dextrose 2 gm 05/20/19 18:30 05/21/19 09:56 Ancef 2 Gm Premixed Ivpb - IVPB 2 gm Q8H-IV GLORY Administration Collagenase 1 applic 05/18/19 16:00 05/21/19 09:45 Santyl - TP 1 applic DAILY GLORY Administration Protocol Heparin Sodium (Porcine) 5,000 unit 05/18/19 14:00 05/21/19 14:23 Heparin - SQ 5,000 unit TID LGORY Administration Potassium Chloride 40 meq/ 1,020 mls @ 75 mls/hr 05/21/19 14:15 05/21/19 13: 29 Dextrose IVPB 75 mls/hr Q13H GLORY Administration Home Medications Medication Instructions Recorded Levothyroxine [Synthroid -] 50 mcg PO DAILY 06/21/14 Ranitidine [Zantac -] 150 mg PO BID #30 tablet 07/16/18 Microbiology 05/19/19 12:05 Buttock - Right Gram Stain - Final 05/19/19 12:05 Buttock - Right Wound Culture - Preliminary Escherichia Coli Pseudomonas Aeruginosa Staphylococcus Coagulase Neg Group D Strep Or Entero Coccus Proteus Species 05/17/19 22:32 Blood - Peripheral Venous Blood Culture - Final Staphylococcus Aureus 05/18/19 18:15 Blood - Peripheral Venous Blood Culture - Final Staphylococcus Aureus 05/18/19 18:00 Blood - Peripheral Venous Blood Culture - Final Staphylococcus Aureus 05/18/19 00:17 Urine - Urine Clean Catch Urine Culture - Final Klebsiella Pneumoniae 05/17/19 22:32 Blood - Peripheral Venous Blood Culture - Final Staphylococcus Aureus Assessment and plan: Patient is an 89 y/o with home hospice was brought in by the family member due to increased lethargy. she is supposedly on home Hospice care but family brought her here. # Acute hypernatremia : due to severe dehydration , On IVF continue, nephro on the case # Severe sepsis on IV antibiotics continue id on the case # Staph bacteremia ( G+ cocci in blood ) # Severe dehydration on ivf # hypotension due to severe dehydration : on ivf # Stage 4 Decub ulcer and positive drainage from the right hip. # Acute severe hypokalemia replete discussed with the son who is at bedside, Molt papers are signed, since patient' s son wants her to have IVF and IV antibioitics , no intubation
[2019-05-22] MEDS: POTASSIUM CHLORIDE 40 MEQ in DEXTROSE 5%-WATER - 1,000 ML IVPB SCH ×3 (04:19→16:53)
[2019-05-22] MEDS: ceFAZolin 2 GRAM PREMIX BAG IVPB SCH ×3 (04:19→18:29)
[2019-05-22] MEDS ORDERED: DEXTROSE 50%-WATER - 25 GM/50 ML VIAL IVPUSH ONE ×2 (06:12→06:45)
[2019-05-22] MEDS ORDERED: DEXTROSE 50%-WATER - 25 GM/50 ML VIAL ONE (06:41)
[2019-05-22] MEDS: HEPARIN NA (PORCINE) 5,000 UNITS/ML 1ML VIAL SQ SCH ×3 (07:19→21:11)
[2019-05-22] MEDS: COLLAGENASE CLOSTRIDIUM HIST. 30 GRAMS TUBE TP SCH (09:48)
[2019-05-22 09:56] LABS: HEMATOCRIT 27.7 % (32.4-45.2); HEMOGLOBIN 8.7 GM/dL (10.7-15.3); MCH 24.8 pg (25.7-33.7); MCHC 31.6 g/dl (32.0-36.0); MEAN CELL VOLUME 78.5 fl (80-96); MEAN PLT VOLUME 10.9 fl (7.5-11.1); PLATELET COUNT 107 K/MM3 (134-434); RBC 3.52 M/mm3 (3.60-5.2); RDW 16.4 % (11.6-15.6); WHITE BLOOD COUNT 22.8 K/mm3 (4.0-10.0)
[2019-05-22 10:21] LABS: BLOOD UREA NITROGEN 20.9 mg/dL (7-18); CALCIUM 7.5 mg/dL (8.5-10.1); CREATININE 0.9 mg/dL (0.55-1.3); MAGNESIUM 1.8 mg/dL (1.8-2.4); POTASSIUM 3.1 mmol/L (3.5-5.1)
--- NOTE | 2019-05-22 11:56 | PN ---
Progress Note (short form) - Note Progress Note: Patient is improving, eyes open but nonverbal. Vital Signs Temperature 98.8 F 05/22/19 06:00 Pulse Rate 86 05/22/19 06:00 Respiratory Rate 18 05/22/19 06:00 Blood Pressure 85/57 L 05/22/19 06:00 O2 Sat by Pulse Oximetry (%) 100 05/21/19 21:00 GENERAL: The patient is unresponsive, contracted. comfortable HEAD: Normal with no signs of trauma. EYES: PERRL, extraocular movements intact, sclera anicteric, conjunctiva clear. ENT: Ears normal, dry mucus membrane , dry skin , positive for NG tube NECK: Trachea midline, full range of motion, supple. LUNGS: decreased Breath sounds bl , no wheezes, no crackles, no accessory muscle use. HEART: Regular rate and rhythm, S1, S2 positive, SHIMON 2/6 , no rub or gallop. ABDOMEN: Soft, NT,ND, normoactive bowel sounds, no guarding, no rebound, no hepatosplenomegaly, no masses. EXTREMITIES: 2+ pulses, warm, contracted LE NEUROLOGICAL: Cranial nerves II through XII grossly intact. gait not observed. PSYCH: non verbal SKIN: Warm ,dry skin decub ulcer, stage 4, no discharge , no erythema , drainage from the right hip area CBCD WBC 22.8 K/mm3 (4.0-10.0) H 05/22/19 08:20 RBC 3.52 M/mm3 (3.60-5.2) L 05/22/19 08:20 Hgb 8.7 GM/dL (10.7-15.3) L 05/22/19 08:20 Hct 27.7 % (32.4-45.2) L 05/22/19 08:20 MCV 78.5 fl (80-96) L 05/22/19 08:20 MCHC 31.6 g/dl (32.0-36.0) L 05/22/19 08:20 RDW 16.4 % (11.6-15.6) H 05/22/19 08:20 Plt Count 107 K/MM3 (134-434) L 05/22/19 08:20 MPV 10.9 fl (7.5-11.1) 05/22/19 08:20 CMP Sodium 152 mmol/L (136-145) H 05/22/19 08:20 Potassium 3.1 mmol/L (3.5-5.1) L 05/22/19 08:20 Chloride 127 mmol/L (98-107) H 05/22/19 08:20 Carbon Dioxide 15 mmol/L (21-32) L 05/22/19 08:20 Anion Gap 10 MMOL/L (8-16) 05/22/19 08:20 BUN 20.9 mg/dL (7-18) H 05/22/19 08:20 Creatinine 0.9 mg/dL (0.55-1.3) 05/22/19 08:20 Random Glucose 97 mg/dL (74-106) 05/22/19 08:20 Calcium 7.5 mg/dL (8.5-10.1) L 05/22/19 08:20 Total Bilirubin 0.4 mg/dL (0.2-1) 05/17/19 22:32 AST 29 U/L (15-37) 05/17/19 22:32 ALT 13 U/L (13-61) 05/17/19 22:32 Alkaline Phosphatase 104 U/L (45-117) 05/17/19 22:32 Total Protein 5.6 g/dl (6.4-8.2) L 05/17/19 22:32 Albumin 2.0 g/dl (3.4-5.0) L 05/17/19 22:32 Home Medications Medication Instructions Recorded Levothyroxine [Synthroid -] 50 mcg PO DAILY 06/21/14 Ranitidine [Zantac -] 150 mg PO BID #30 tablet 07/16/18 Current Medications Generic Name Dose Route Start Last Admin Trade Name Goodq PRN Reason Stop Dose Admin Cefazolin Sodium/Dextrose 2 gm 05/20/19 18:30 05/22/19 18:29 Ancef 2 Gm Premixed Ivpb - IVPB 2 gm Q8H-IV GLORY Administration Collagenase 1 applic 05/18/19 16:00 05/22/19 09:48 Santyl - TP 1 applic DAILY GLORY Administration Protocol Heparin Sodium (Porcine) 5,000 unit 05/18/19 14:00 05/22/19 15:06 Heparin - SQ 5,000 unit TID GLORY Administration Potassium Chloride 40 meq/ 1,020 mls @ 75 mls/hr 05/21/19 14:15 05/22/19 16: 53 Dextrose IVPB 75 mls/hr Q13H GLORY Administration Microbiology 05/19/19 12:05 Buttock - Right Gram Stain - Final 05/19/19 12:05 Buttock - Right Wound Culture - Preliminary Escherichia Coli Pseudomonas Aeruginosa Staphylococcus Coagulase Neg Group D Strep Or Entero Coccus Proteus Species 05/17/19 22:32 Blood - Peripheral Venous Blood Culture - Final Staphylococcus Aureus 05/18/19 18:15 Blood - Peripheral Venous Blood Culture - Final Staphylococcus Aureus 05/18/19 18:00 Blood - Peripheral Venous Blood Culture - Final Staphylococcus Aureus 05/18/19 00:17 Urine - Urine Clean Catch Urine Culture - Final Klebsiella Pneumoniae 05/17/19 22:32 Blood - Peripheral Venous Blood Culture - Final Staphylococcus Aureus Assessment and plan: Patient is an 89 y/o with home hospice was brought in by the family member due to increased lethargy. she is supposedly on home Hospice care but family brought her here. # Acute hypernatremia : on D5w with KCl as per nephro # Severe sepsis : on IV ancef 2gm # Staph bacteremia ( G+ cocci in blood ) on IV ancef # Severe dehydration : continue IVF # hypotension : continue IVF # Stage 4 Decub ulcer and positive drainage from the right hip. # Acute hypokalemia replete onIVF with 40meq - change fluids to d5w with potassium - total free water deficit is about 2 liters discussed with the son who is at bedside, Molt papers are signed, since patient' s son wants her to have IVF and IV antibioitics , no intubation Visit type - Emergency Visit Emergency Visit: Yes ED Registration Date: 05/18/19 Care time: The patient presented to the Emergency Department on the above date and was hospitalized for further evaluation of their emergent condition. - New Patient This patient is new to me today: No - Critical Care Critical Care patient: No - Discharge Referral Referred to [facility] No
--- NOTE | 2019-05-22 16:11 | PN ---
Progress Note (short form) - Note Progress Note: covering dr munoz problems 1. hypernatremia 2. ashtyn 3. sepsis 4. hypotension in pt with hx of hypertension 5. recurrent uti 6. dementia 7. bacteremia Current Medications Cefazolin Sodium/Dextrose (Ancef 2 Gm Premixed Ivpb -) 2 gm IVPB Q8H-IV GLORY Last Admin: 05/22/19 09:54 Dose: 2 gm Collagenase (Santyl -) 1 applic TP DAILY GLORY; Protocol Last Admin: 05/22/19 09:48 Dose: 1 applic Heparin Sodium (Porcine) (Heparin -) 5,000 unit SQ TID GLORY Last Admin: 05/22/19 15:06 Dose: 5,000 unit Potassium Chloride 40 meq/ (Dextrose) 1,020 mls @ 75 mls/hr IVPB Q13H GLORY Last Admin: 05/22/19 14:24 Dose: 75 mls/hr Last Vital Signs Temp Pulse Resp BP Pulse Ox 98 F 87 18 97/52 L 100 05/22/19 15:55 05/22/19 15:55 05/22/19 15:55 05/22/19 15:55 05/22/19 09:00 CBC, BMP 05/22/19 08:20 05/22/19 08:20 IMP-ashtyn hypernatremia hypokalemia Plan - continue IVF d5w with potassium - total free water deficit is about 2 liters - will need to discuss GOC with family - mag level normal - monitor renal function - abx per medical team
[2019-05-23] MEDS: ceFAZolin 2 GRAM PREMIX BAG IVPB SCH ×3 (01:36→18:12)
[2019-05-23] MEDS: POTASSIUM CHLORIDE 40 MEQ in DEXTROSE 5%-WATER - 1,000 ML IVPB SCH (04:53)
[2019-05-23] MEDS: HEPARIN NA (PORCINE) 5,000 UNITS/ML 1ML VIAL SQ SCH ×3 (05:21→21:27)
[2019-05-23] MEDS ORDERED: DEXTROSE 50%-WATER - 25 GM/50 ML VIAL IVPUSH ONE (05:36)
[2019-05-23 10:40] LABS: BASO % 0.2 % (0-2.0); EOS % 0.1 % (0-4.5); HEMATOCRIT 26.4 % (32.4-45.2); HEMOGLOBIN 8.3 GM/dL (10.7-15.3); LYMPH % 3.3 % (8-40); MCH 25.1 pg (25.7-33.7); MCHC 31.6 g/dl (32.0-36.0); MEAN CELL VOLUME 79.3 fl (80-96); MEAN PLT VOLUME 11.1 fl (7.5-11.1); MONO % 1.1 % (3.8-10.2); NEUT % 95.3 % (42.8-82.8); PLATELET COUNT 87 K/MM3 (134-434); RBC 3.32 M/mm3 (3.60-5.2); RDW 16.7 % (11.6-15.6); WHITE BLOOD COUNT 13.4 K/mm3 (4.0-10.0)
[2019-05-23] MEDS: COLLAGENASE CLOSTRIDIUM HIST. 30 GRAMS TUBE TP SCH (11:00)
[2019-05-23 11:24] LABS: ALBUMIN 1.2 g/dl (3.4-5.0); ALK PHOS 100 U/L (45-117); ANION GAP 6 MMOL/L (8-16); BILIRUBIN,TOTAL 0.2 mg/dL (0.2-1); BLOOD UREA NITROGEN 16.6 mg/dL (7-18); CALCIUM 7.3 mg/dL (8.5-10.1); CHLORIDE 122 mmol/L (98-107); CO2 17 mmol/L (21-32); CREATININE 0.7 mg/dL (0.55-1.3); GLUCOSE,RANDOM 86 mg/dL (74-106); MAGNESIUM 1.7 mg/dL (1.8-2.4); PHOSPHOROUS 1.6 mg/dL (2.5-4.9); POTASSIUM 3.6 mmol/L (3.5-5.1); SGOT/AST 12 U/L (15-37); SGPT/ALT < 6 U/L (13-61); SODIUM 144 mmol/L (136-145); TOT PROT 3.6 g/dl (6.4-8.2)
[2019-05-23 11:38] LABS: ANISOCYTOSIS 1+; PLATELET ESTIMATE DECREASED
--- NOTE | 2019-05-23 15:00 | PN ---
Physical Exam: SUBJECTIVE: Patient seen and examined. Non-verbal. OBJECTIVE: Vital Signs Period Temp Pulse Resp BP Sys/Chinchilla Pulse Ox Last 24 Hr 97.4 F-98.6 F 76-87 18-18 97-124/49-69 100 GENERAL: Patient is responsive to sternal rub HEAD: Normal with no signs of trauma. Tooth loss. EYES: Opens eyes. ENT: Ears normal, nares patent, dry mucous membranes NECK: Trachea midline LUNGS: Clear to auscultation bilaterally, no wheezes HEART: Regular rate and rhythm, systolic murmur ABDOMEN: Soft, nontender, nondistended, normoactive bowel sounds EXTREMITIES: Warm, well-perfused, non-pitting edema in all extremities. NEUROLOGICAL: Cannot be assessed. PSYCH: Normal mood, normal affect. SKIN: Warm, dry, sacral decubitus and right trochanteric ulcers Laboratory Results - last 24 hr 05/22/19 05/23/19 05/23/19 17:00 05:33 09:25 WBC 13.4 H RBC 3.32 L Hgb 8.3 L Hct 26.4 L MCV 79.3 L MCH 25.1 L MCHC 31.6 L RDW 16.7 H Plt Count 87 L MPV 11.1 Absolute Neuts (auto) 12.8 H Neutrophils % 95.3 H Neutrophils % (Manual) 97.1 H Band Neutrophils % 0.0 Lymphocytes % 3.3 L D Lymphocytes % (Manual) 1.9 L Monocytes % 1.1 L Monocytes % (Manual) 1 L Eosinophils % 0.1 Eosinophils % (Manual) 0.0 Basophils % 0.2 Basophils % (Manual) 0.0 Myelocytes % (Man) 0 Promyelocytes % (Man) 0 Blast Cells % (Manual) 0 Nucleated RBC % 0 Metamyelocytes 0 Hypochromia 1+ Platelet Estimate Decreased Anisocytosis 1+ Schistocytes 1+ Sodium Potassium Chloride Carbon Dioxide Anion Gap BUN Creatinine Est GFR (CKD-EPI)AfAm Est GFR (CKD-EPI)NonAf POC Glucometer 68 68 Random Glucose Calcium Phosphorus Magnesium Total Bilirubin AST ALT Alkaline Phosphatase Total Protein Albumin 05/23/19 05/23/19 09:25 12:17 WBC RBC Hgb Hct MCV MCH MCHC RDW Plt Count MPV Absolute Neuts (auto) Neutrophils % Neutrophils % (Manual) Band Neutrophils % Lymphocytes % Lymphocytes % (Manual) Monocytes % Monocytes % (Manual) Eosinophils % Eosinophils % (Manual) Basophils % Basophils % (Manual) Myelocytes % (Man) Promyelocytes % (Man) Blast Cells % (Manual) Nucleated RBC % Metamyelocytes Hypochromia Platelet Estimate Anisocytosis Schistocytes Sodium 144 Potassium 3.6 Chloride 122 H Carbon Dioxide 17 L Anion Gap 6 L BUN 16.6 Creatinine 0.7 Est GFR (CKD-EPI)AfAm 89.03 Est GFR (CKD-EPI)NonAf 76.82 POC Glucometer 71 Random Glucose 86 Calcium 7.3 L Phosphorus 1.6 L Magnesium 1.7 L Total Bilirubin 0.2 AST 12 L ALT < 6 L Alkaline Phosphatase 100 Total Protein 3.6 L Albumin 1.2 L Active Medications Generic Name Dose Route Start Last Admin Trade Name Freq PRN Reason Stop Dose Admin Acetaminophen 750 mg 05/23/19 11:32 Ofirmev Injection - IVPB Q6H PRN PAIN LEVEL 6-10 Cefazolin Sodium/Dextrose 2 gm 05/20/19 18:30 05/23/19 11:00 Ancef 2 Gm Premixed Ivpb - IVPB 2 gm Q8H-IV GLORY Administration Collagenase 1 applic 05/18/19 16:00 05/23/19 11:00 Santyl - TP 1 applic DAILY GLORY Administration Protocol Heparin Sodium (Porcine) 5,000 unit 05/18/19 14:00 05/23/19 05:21 Heparin - SQ 5,000 unit TID GLORY Administration Potassium Chloride 40 meq/ 1,020 mls @ 75 mls/hr 05/21/19 14:15 05/23/19 04: 53 Dextrose IVPB 75 mls/hr Q13H GLORY Administration ASSESSMENT/PLAN: Ms. Rust is an 89y/o female hospice patient with dementia, HTN, recurrent UTI , constipation, hypothyroidism, and malnutrition who presents with increased weakness and lethargy. Pt was admitted for severe sepsis 2/2 UTI. NG tube was removed by pt overnight. #severe sepsis 2/2 UTI, bacteremia Leukocytosis present. Afebrile. -Urine cx positive for klebsiella -Blood cx positive for staph aureus -Ancef day 4 -vancomycin -IV fluids for hypotension PRN #severe dehydration and malnutrition -continue Clinimix -spoke with pt's son, Jaspal, who is in agreement with allowing a trial without NG tube and continue supplementation via IV #hypophosphatemia #hypomagnesemia -replete #hyperchloridemia, improving -continue supplementation #stage 4 decubitus ulcer Clean -Ancef #hypernatremia, resolved #hypokalemia, resolved DVT Ppx heparin FEN monitor all labs Clinimix 75mL/hr with K code status DNR/DNI Visit type - Emergency Visit Emergency Visit: Yes ED Registration Date: 05/18/19 Care time: The patient presented to the Emergency Department on the above date and was hospitalized for further evaluation of their emergent condition. - New Patient This patient is new to me today: No - Critical Care Critical Care patient: No - Discharge Referral Referred to [facility] No ATTENDING PHYSICIAN STATEMENT I saw and evaluated the patient. I reviewed the resident's note and discussed the case with the resident. I agree with the resident's findings and plan as documented. SUBJECTIVE: OBJECTIVE: ASSESSMENT AND PLAN:
--- NOTE | 2019-05-23 17:04 | PN ---
Teaching Attending Note Name of Resident: Padmaja Henderson ATTENDING PHYSICIAN STATEMENT I saw and evaluated the patient. I reviewed the resident's note and discussed the case with the resident. I agree with the resident's findings and plan as documented. SUBJECTIVE: Patient opens her eyes, non verbal Vital Signs Temperature 97.9 F 05/23/19 14:00 Pulse Rate 82 05/23/19 14:00 Respiratory Rate 18 05/23/19 14:00 Blood Pressure 111/71 05/23/19 14:00 O2 Sat by Pulse Oximetry (%) 100 05/22/19 21:00 GENERAL: The patient is unresponsive, contracted. comfortable HEAD: Normal with no signs of trauma. EYES: PERRL, extraocular movements intact, sclera anicteric, conjunctiva clear. ENT: Ears normal, dry mucus membrane , dry skin NECK: Trachea midline, full range of motion, supple. LUNGS: decreased Breath sounds bl , no wheezes, no crackles, no accessory muscle use. HEART: Regular rate and rhythm, S1, S2 positive, SHIMON 2/6 , no rub or gallop. ABDOMEN: Soft, NT,ND, normoactive bowel sounds, no guarding, no rebound, no hepatosplenomegaly, no masses. EXTREMITIES: 2+ pulses, warm, contracted LE NEUROLOGICAL: Cranial nerves II through XII grossly intact. gait not observed. PSYCH: non verbal SKIN: Warm ,dry skin decub ulcer, stage 4, no discharge , no erythema , drainage from the right hip area CBCD WBC 22.8 K/mm3 (4.0-10.0) H 05/22/19 08:20 RBC 3.52 M/mm3 (3.60-5.2) L 05/22/19 08:20 Hgb 8.7 GM/dL (10.7-15.3) L 05/22/19 08:20 Hct 27.7 % (32.4-45.2) L 05/22/19 08:20 MCV 78.5 fl (80-96) L 05/22/19 08:20 MCHC 31.6 g/dl (32.0-36.0) L 05/22/19 08:20 RDW 16.4 % (11.6-15.6) H 05/22/19 08:20 Plt Count 107 K/MM3 (134-434) L 05/22/19 08:20 MPV 10.9 fl (7.5-11.1) 05/22/19 08:20 CMP Sodium 152 mmol/L (136-145) H 05/22/19 08:20 Potassium 3.1 mmol/L (3.5-5.1) L 05/22/19 08:20 Chloride 127 mmol/L (98-107) H 05/22/19 08:20 Carbon Dioxide 15 mmol/L (21-32) L 05/22/19 08:20 Anion Gap 10 MMOL/L (8-16) 05/22/19 08:20 BUN 20.9 mg/dL (7-18) H 05/22/19 08:20 Creatinine 0.9 mg/dL (0.55-1.3) 05/22/19 08:20 Random Glucose 97 mg/dL (74-106) 05/22/19 08:20 Calcium 7.5 mg/dL (8.5-10.1) L 05/22/19 08:20 Total Bilirubin 0.4 mg/dL (0.2-1) 05/17/19 22:32 AST 29 U/L (15-37) 05/17/19 22:32 ALT 13 U/L (13-61) 05/17/19 22:32 Alkaline Phosphatase 104 U/L (45-117) 05/17/19 22:32 Total Protein 5.6 g/dl (6.4-8.2) L 05/17/19 22:32 Albumin 2.0 g/dl (3.4-5.0) L 05/17/19 22:32 Home Medications Medication Instructions Recorded Levothyroxine [Synthroid -] 50 mcg PO DAILY 06/21/14 Ranitidine [Zantac -] 150 mg PO BID #30 tablet 07/16/18 Current Medications Generic Name Dose Route Start Last Admin Trade Name Freq PRN Reason Stop Dose Admin Cefazolin Sodium/Dextrose 2 gm 05/20/19 18:30 05/22/19 18:29 Ancef 2 Gm Premixed Ivpb - IVPB 2 gm Q8H-IV GLORY Administration Collagenase 1 applic 05/18/19 16:00 05/22/19 09:48 Santyl - TP 1 applic DAILY GLORY Administration Protocol Heparin Sodium (Porcine) 5,000 unit 05/18/19 14:00 05/22/19 15:06 Heparin - SQ 5,000 unit TID GLORY Administration Potassium Chloride 40 meq/ 1,020 mls @ 75 mls/hr 05/21/19 14:15 05/22/19 16: 53 Dextrose IVPB 75 mls/hr Q13H GLORY Administration Microbiology 05/19/19 12:05 Buttock - Right Gram Stain - Final 05/19/19 12:05 Buttock - Right Wound Culture - Preliminary Escherichia Coli Pseudomonas Aeruginosa Staphylococcus Coagulase Neg Group D Strep Or Entero Coccus Proteus Species 05/17/19 22:32 Blood - Peripheral Venous Blood Culture - Final Staphylococcus Aureus 05/18/19 18:15 Blood - Peripheral Venous Blood Culture - Final Staphylococcus Aureus 05/18/19 18:00 Blood - Peripheral Venous Blood Culture - Final Staphylococcus Aureus 05/18/19 00:17 Urine - Urine Clean Catch Urine Culture - Final Klebsiella Pneumoniae 05/17/19 22:32 Blood - Peripheral Venous Blood Culture - Final Staphylococcus Aureus Assessment and plan: Patient is an 89 y/o with home hospice was brought in by the family member due to increased lethargy. she is supposedly on home Hospice care but family brought her here. # Acute hypernatremia : on D5w with KCl as per nephro, repeat cmp in am check sodium and potassium # Severe sepsis : on IV ancef 2gm added levaquin 500mg IV # Staph bacteremia ( G+ cocci in blood ) on IV ancef # Severe dehydration : continue IVF # hypotension : continue IVF # Stage 4 Decub ulcer and positive drainage from the right hip. # Acute hypokalemia replete will start her clinimax at 75cc/hr with 40kcl - total free water deficit is about 2 liters #Nutrition: clinamax Iv discussed with the son who is at bedside, Molt papers are signed, since patient' s son wants her to have IVF and IV antibioitics , no intubation
[2019-05-23] MEDS ORDERED: MAGNESIUM SULF 50% (8.12 MEQ/2 ML-1 GM VIAL) IVPB ONE (18:12)
[2019-05-23] MEDS ORDERED: VANCOMYCIN 1 GRAM (PRE-DOCKED) 1,000 MG/250 ML BAG IVPB ONE (18:20)
[2019-05-23] MEDS ORDERED: POTASSIUM PHOSPHATE 30 MM in SODIUM CHLORIDE 500 ML IVPB ONE (19:00)
[2019-05-23] MEDS ORDERED: DEXTROSE 50%-WATER - 25 GM/50 ML VIAL IVPUSH PRN (19:32)
[2019-05-23] MEDS ORDERED: DEXTROSE 50%-WATER - 25 GM/50 ML VIAL ONE (20:14)
[2019-05-23] MEDS: DEXTROSE 50%-WATER - 25 GM/50 ML VIAL IVPUSH PRN (20:16)
--- NOTE | 2019-05-23 21:21 | PN ---
Progress Note (short form) - Note Progress Note: covering dr munoz problems 1. hypernatremia 2. ashtyn 3. sepsis 4. hypotension in pt with hx of hypertension 5. recurrent uti 6. dementia 7. bacteremia Current Medications Acetaminophen (Ofirmev Injection -) 750 mg IVPB Q6H PRN PRN Reason: PAIN LEVEL 6-10 Cefazolin Sodium/Dextrose (Ancef 2 Gm Premixed Ivpb -) 2 gm IVPB Q8H-IV GLORY Last Admin: 05/23/19 18:12 Dose: 2 gm Collagenase (Santyl -) 1 applic TP DAILY GLORY; Protocol Last Admin: 05/23/19 11:00 Dose: 1 applic Dextrose (D50w (Vial) -) 25 gm IVPUSH PRN PRN PRN Reason: HYPOGLYCEMIA Last Admin: 05/23/19 20:16 Dose: 25 gm Heparin Sodium (Porcine) (Heparin -) 5,000 unit SQ TID GLORY Last Admin: 05/23/19 15:01 Dose: 5,000 unit Potassium Chloride 40 meq/ (Amino Acids) 1,020 mls @ 75 mls/hr IVPB Q13H GLORY Potassium Phosphate 30 mm/ (Sodium Chloride) 510 mls @ 75 mls/hr IVPB ONCE ONE Stop: 05/24/19 01:47 Last Vital Signs Temp Pulse Resp BP Pulse Ox 99.3 F 75 18 87/47 L 100 05/23/19 18:04 05/23/19 18:04 05/23/19 18:04 05/23/19 18:04 05/23/19 09:00 Lungs clear Heart reg Abd soft Ext no edema CBC, BMP 05/23/19 09:25 05/23/19 09:25 CBC, BMP 05/22/19 08:20 05/22/19 08:20 IMP-ashtyn hypernatremia- resolved hypokalemia better anemia Plan - continue IVF d5w with potassium - total free water deficit is about 2 liters - will need to discuss GOC with family - mag level normal - monitor renal function - abx per medical team
[2019-05-23] MEDS: POTASSIUM CHLORIDE 40 MEQ in AMINO ACIDS 4.25%/D5W 1,000 ML IVPB SCH (23:57)
[2019-05-24] MEDS: ceFAZolin 2 GRAM PREMIX BAG IVPB SCH ×3 (01:29→18:01)
[2019-05-24] MEDS: HEPARIN NA (PORCINE) 5,000 UNITS/ML 1ML VIAL SQ SCH ×3 (06:13→23:34)
[2019-05-24] MEDS: POTASSIUM CHLORIDE 40 MEQ in AMINO ACIDS 4.25%/D5W 1,000 ML IVPB SCH ×2 (06:40→23:34)
--- NOTE | 2019-05-24 09:35 | PN ---
Progress Note, Physician History of Present Illness: Pt seen and examined at bedside. SHe is more awake and closer to baseline. - Current Medication List Current Medications: Active Medications Acetaminophen (Ofirmev Injection -) 750 mg IVPB Q6H PRN PRN Reason: PAIN LEVEL 6-10 Cefazolin Sodium/Dextrose (Ancef 2 Gm Premixed Ivpb -) 2 gm IVPB Q8H-IV [facility] Last Admin: 05/24/19 01:29 Dose: 2 gm Collagenase (Santyl -) 1 applic TP DAILY [facility]; Protocol Last Admin: 05/23/19 11:00 Dose: 1 applic Dextrose (D50w (Vial) -) 25 gm IVPUSH PRN PRN PRN Reason: HYPOGLYCEMIA Last Admin: 05/23/19 20:16 Dose: 25 gm Heparin Sodium (Porcine) (Heparin -) 5,000 unit SQ TID [facility] Last Admin: 05/24/19 06:13 Dose: 5,000 unit Potassium Chloride 40 meq/ (Amino Acids) 1,020 mls @ 75 mls/hr IVPB Q13H [facility] Last Admin: 05/24/19 06:40 Dose: Not Given Levofloxacin (Levaquin 500 Mg Premixed Ivpb -) 500 mg in 100 mls @ 100 mls/hr IVPB DAILY [facility]; Protocol Stop: 05/24/19 11:13 - Objective Vital Signs: Vital Signs Temperature 97.3 F L 05/24/19 09:17 Pulse Rate 84 05/24/19 09:17 Respiratory Rate 18 05/24/19 09:17 Blood Pressure 106/64 05/24/19 09:17 O2 Sat by Pulse Oximetry (%) 100 05/23/19 09:00 Constitutional: Yes: Calm Eyes: Yes: Conjunctiva Clear HENT: Yes: Atraumatic Neck: Yes: Supple Cardiovascular: Yes: S1, S2 Respiratory: Yes: CTA Bilaterally Gastrointestinal: Yes: Soft Genitourinary: Yes: Incontinence Musculoskeletal: Yes: Muscle Weakness Edema: No Integumentary: Yes: WNL Neurological: Yes: Pre-Existing Deficit Labs: CBC, BMP 05/23/19 09:25 05/23/19 09:25 Assessment/Plan Current Medications Generic Name Dose Route Start Last Admin Trade Name Freq PRN Reason Stop Dose Admin Acetaminophen 750 mg 05/23/19 11:32 Ofirmev Injection - IVPB Q6H PRN PAIN LEVEL 6-10 Cefazolin Sodium/Dextrose 2 gm 05/20/19 18:30 05/24/19 01:29 Ancef 2 Gm Premixed Ivpb - IVPB 2 gm Q8H-IV [facility] Administration Collagenase 1 applic 05/18/19 16:00 05/23/19 11:00 Santyl - TP 1 applic DAILY [facility] Administration Protocol Dextrose 25 gm 05/23/19 20:00 05/23/19 20:16 D50w (Vial) - IVPUSH 25 gm PRN PRN Administration HYPOGLYCEMIA Heparin Sodium (Porcine) 5,000 unit 05/18/19 14:00 05/24/19 06:13 Heparin - SQ 5,000 unit TID [facility] Administration Potassium Chloride 40 meq/ 1,020 mls @ 75 mls/hr 05/23/19 18:00 05/24/19 06: 40 Amino Acids IVPB Not Given Q13H [facility] Levofloxacin 500 mg in 100 mls @ 100 mls/hr 05/24/19 10:14 Levaquin 500 Mg Premixed Ivpb - IVPB 05/24/19 11:13 DAILY [facility] Protocol Impression 1. hypernatremia 2. ashtyn 3. sepsis 4. hypotension in pt with hx of hypertension 5. recurrent uti 6. dementia 7. bacteremia Plan - renal function improving - sodium is improving - follow up labs from today - replace lytes as needed - abx per medical team
[2019-05-24 10:29] LABS: BASO % 0.1 % (0-2.0); EOS % 0.1 % (0-4.5); HEMATOCRIT 27.4 % (32.4-45.2); HEMOGLOBIN 8.7 GM/dL (10.7-15.3); LYMPH % 4.9 % (8-40); MCH 24.6 pg (25.7-33.7); MCHC 31.9 g/dl (32.0-36.0); MEAN CELL VOLUME 77.2 fl (80-96); MEAN PLT VOLUME 10.7 fl (7.5-11.1); MONO % 1.8 % (3.8-10.2); NEUT % 93.1 % (42.8-82.8); PLATELET COUNT 106 K/MM3 (134-434); RBC 3.54 M/mm3 (3.60-5.2); RDW 16.7 % (11.6-15.6); WHITE BLOOD COUNT 13.8 K/mm3 (4.0-10.0)
[2019-05-24 11:02] LABS: ALBUMIN 1.2 g/dl (3.4-5.0); ALK PHOS 104 U/L (45-117); ANION GAP 6 MMOL/L (8-16); BILIRUBIN,TOTAL 0.3 mg/dL (0.2-1); CALCIUM 7.2 mg/dL (8.5-10.1); CHLORIDE 118 mmol/L (98-107); CO2 19 mmol/L (21-32); CREATININE 0.6 mg/dL (0.55-1.3); GLUCOSE,RANDOM 91 mg/dL (74-106); MAGNESIUM 1.8 mg/dL (1.8-2.4); POTASSIUM 4.1 mmol/L (3.5-5.1); SGOT/AST 8 U/L (15-37); SGPT/ALT < 6 U/L (13-61); SODIUM 143 mmol/L (136-145); TOT PROT 3.9 g/dl (6.4-8.2)
[2019-05-24] MEDS: COLLAGENASE CLOSTRIDIUM HIST. 30 GRAMS TUBE TP SCH (11:15)
[2019-05-24 12:37] LABS: ANISOCYTOSIS 1+; MACROCYTOSIS 0; PLATELET ESTIMATE DECREASED
--- NOTE | 2019-05-24 13:21 | PN ---
Physical Exam: SUBJECTIVE: Patient seen and examined. She is non-verbal. OBJECTIVE: Vital Signs Period Temp Pulse Resp BP Sys/Chinchilla Pulse Ox Last 24 Hr 97.3 F-99.3 F 75-84 18-81 87-117/47-71 GENERAL: Patient makes eye contact. HEAD: Normal with no signs of trauma. Tooth loss. EYES: Conjunctiva clear. ENT: Ears normal, nares patent, moist mucous membranes NECK: Trachea midline LUNGS: Clear to auscultation bilaterally, no wheezes HEART: Regular rate and rhythm, systolic murmur ABDOMEN: Soft, nontender, nondistended, normoactive bowel sounds EXTREMITIES: Warm, well-perfused, non-pitting edema in hands (improved from yesterday), +2 pitting edema in feet. NEUROLOGICAL: Cannot be assessed. PSYCH: Cannot be assessed. SKIN: Warm, dry, sacral decubitus and right trochanteric ulcers bandaged. Laboratory Results - last 24 hr 05/23/19 05/24/19 05/24/19 17:35 05:08 10:00 WBC 13.8 H RBC 3.54 L Hgb 8.7 L Hct 27.4 L MCV 77.2 L MCH 24.6 L MCHC 31.9 L RDW 16.7 H Plt Count 106 L D MPV 10.7 Absolute Neuts (auto) 12.8 H Neutrophils % 93.1 H Neutrophils % (Manual) 92.0 H Band Neutrophils % 0.0 Lymphocytes % 4.9 L D Lymphocytes % (Manual) 7.0 L D Monocytes % 1.8 L Monocytes % (Manual) 1 L Eosinophils % 0.1 Eosinophils % (Manual) 0.0 Basophils % 0.1 Basophils % (Manual) 0.0 Myelocytes % (Man) 0 Promyelocytes % (Man) 0 Blast Cells % (Manual) 0 Nucleated RBC % 0 Metamyelocytes 0 Hypochromia 0 Platelet Estimate Decreased Polychromasia 1+ Poikilocytosis 2+ Anisocytosis 1+ Microcytosis 1+ Macrocytosis 0 Acanthocytes (Spur) 1+ Schistocytes 1+ Sodium Potassium Chloride Carbon Dioxide Anion Gap BUN Creatinine Est GFR (CKD-EPI)AfAm Est GFR (CKD-EPI)NonAf POC Glucometer 59 67 Random Glucose Calcium Phosphorus Magnesium Total Bilirubin AST ALT Alkaline Phosphatase Total Protein Albumin 05/24/19 10:00 WBC RBC Hgb Hct MCV MCH MCHC RDW Plt Count MPV Absolute Neuts (auto) Neutrophils % Neutrophils % (Manual) Band Neutrophils % Lymphocytes % Lymphocytes % (Manual) Monocytes % Monocytes % (Manual) Eosinophils % Eosinophils % (Manual) Basophils % Basophils % (Manual) Myelocytes % (Man) Promyelocytes % (Man) Blast Cells % (Manual) Nucleated RBC % Metamyelocytes Hypochromia Platelet Estimate Polychromasia Poikilocytosis Anisocytosis Microcytosis Macrocytosis Acanthocytes (Spur) Schistocytes Sodium 143 Potassium 4.1 Chloride 118 H Carbon Dioxide 19 L Anion Gap 6 L BUN 14.0 Creatinine 0.6 Est GFR (CKD-EPI)AfAm 93.66 Est GFR (CKD-EPI)NonAf 80.81 POC Glucometer Random Glucose 91 Calcium 7.2 L Phosphorus 3.0 Magnesium 1.8 Total Bilirubin 0.3 AST 8 L ALT < 6 L Alkaline Phosphatase 104 Total Protein 3.9 L Albumin 1.2 L Active Medications Generic Name Dose Route Start Last Admin Trade Name Freq PRN Reason Stop Dose Admin Acetaminophen 750 mg 05/23/19 11:32 Ofirmev Injection - IVPB Q6H PRN PAIN LEVEL 6-10 Cefazolin Sodium/Dextrose 2 gm 05/20/19 18:30 05/24/19 10:39 Ancef 2 Gm Premixed Ivpb - IVPB 2 gm Q8H-IV [facility] Administration Collagenase 1 applic 05/18/19 16:00 05/24/19 11:15 Santyl - TP 1 applic DAILY [facility] Administration Protocol Dextrose 25 gm 05/23/19 20:00 05/23/19 20:16 D50w (Vial) - IVPUSH 25 gm PRN PRN Administration HYPOGLYCEMIA Heparin Sodium (Porcine) 5,000 unit 05/18/19 14:00 05/24/19 06:13 Heparin - SQ 5,000 unit TID [facility] Administration Potassium Chloride 40 meq/ 1,020 mls @ 75 mls/hr 05/23/19 18:00 05/24/19 06: 40 Amino Acids IVPB Not Given Q13H [facility] ASSESSMENT/PLAN: Ms. Rust is an 89y/o female (hospice patient prior to admission) with dementia , HTN, recurrent UTI, constipation, hypothyroidism, and malnutrition who presents with increased weakness and lethargy. Pt was admitted for severe sepsis 2/2 UTI and bacteremia. 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 I spoke with the patient's son today who would like to continue abx and IV nutrition. I will speak to him again tomorrow. -blood cx positive for staph aureus, repeat cx prelim positive staph -Cefazolin 2gm Q8H day 5 -IV fluids for hypotension PRN -ID following #stage 4 decubitus ulcer -cx grew multiple organisms in low numbers -Cefazolin #severe dehydration and malnutrition -continue Clinimix with KCl -dextrose PRN with BGM #hypophosphatemia, resolved #hypernatremia, resolved #hypokalemia, resolved #hypomagnesemia, resolved -monitor labs #hyperchloridemia, improving -continue supplementation #oral thrush, resolved DVT Ppx heparin FEN monitor all labs Clinimix 75mL/hr with K code status DNR/DNI Visit type - Emergency Visit Emergency Visit: Yes ED Registration Date: 05/18/19 Care time: The patient presented to the Emergency Department on the above date and was hospitalized for further evaluation of their emergent condition. - New Patient This patient is new to me today: No - Critical Care Critical Care patient: No - Discharge Referral Referred to [facility] Med P.C.: No ATTENDING PHYSICIAN STATEMENT I saw and evaluated the patient. I reviewed the resident's note and discussed the case with the resident. I agree with the resident's findings and plan as documented. SUBJECTIVE: OBJECTIVE: ASSESSMENT AND PLAN:
--- NOTE | 2019-05-24 13:21 | PN ---
Progress Note (short form) - Note Progress Note: more alert remains NPO appears comfortable no distress noted Vital Signs Period Temp Pulse Resp BP Sys/Chinchilla Pulse Ox Last 24 Hr 97.3 F-99.3 F 75-84 18-81 87-117/47-71 cor-rrr lungs clear abd soft,nt right hip ulcer- no drainage +sacral ulcer with exposed bone ext contracted with pedal edema CBC, BMP 05/24/19 10:00 05/24/19 10:00 Microbiology 05/21/19 07:10 Blood - Peripheral Venous Blood Culture - Preliminary Staphylococcus Latex Coag Pos 05/21/19 07:20 Blood - Peripheral Venous Blood Culture - Preliminary Staphylococcus Latex Coag Pos 05/19/19 12:05 Buttock - Right Gram Stain - Final 05/19/19 12:05 Buttock - Right Wound Culture - Final Escherichia Coli Pseudomonas Aeruginosa Staphylococcus Coagulase Neg Enterococcus Faecalis Proteus Mirabilis 05/17/19 22:32 Blood - Peripheral Venous Blood Culture - Final Staphylococcus Aureus 05/18/19 18:15 Blood - Peripheral Venous Blood Culture - Final Staphylococcus Aureus 05/18/19 18:00 Blood - Peripheral Venous Blood Culture - Final Staphylococcus Aureus 05/18/19 00:17 Urine - Urine Clean Catch Urine Culture - Final Klebsiella Pneumoniae 05/17/19 22:32 Blood - Peripheral Venous Blood Culture - Final Staphylococcus Aureus a/p MSSA bacteremia-continue cefazolin Klebsiella UTI-continue cefazolin stage 4 sacral ulcer-clean with exposed bone thrombocytopenia-most likely sepsis--improved severe dementia thrush-resolved by definition has endocarditis- persistent staph bacteremia over time - continue cefazolin echo if this would help the family understand the gravity of the situation repeat blood cultures are pending overall prognosis is poor
--- NOTE | 2019-05-24 18:03 | PN ---
Teaching Attending Note Name of Resident: Padmaja Henderson ATTENDING PHYSICIAN STATEMENT I saw and evaluated the patient. I reviewed the resident's note and discussed the case with the resident. I agree with the resident's findings and plan as documented. SUBJECTIVE: Patient is looking better , eyes open. Vital Signs Temperature 97.9 F 05/24/19 15:23 Pulse Rate 85 05/24/19 15:23 Respiratory Rate 18 05/24/19 15:23 Blood Pressure 114/68 05/24/19 15:23 O2 Sat by Pulse Oximetry (%) 100 05/23/19 09:00 GENERAL: The patient is unresponsive, contracted, but comfortable HEAD: Normal with no signs of trauma. EYES: PERRL, extraocular movements intact, sclera anicteric, conjunctiva clear. ENT: Ears normal, dry mucus membrane , dry skin NECK: Trachea midline, full range of motion, supple. LUNGS: decreased Breath sounds bl , no wheezes, no crackles, no accessory muscle use. HEART: Regular rate and rhythm, S1, S2 positive, SHIMON 2/6 , no rub or gallop. ABDOMEN: Soft, NT,ND, normoactive bowel sounds, no guarding, no rebound, no hepatosplenomegaly, no masses. EXTREMITIES: 2+ pulses, warm, contracted LE NEUROLOGICAL: Cranial nerves II through XII grossly intact. gait not observed. PSYCH: non verbal SKIN: Warm ,dry skin decub ulcer, stage 4, no discharge , no erythema , drainage from the right hip area CBCD WBC 13.8 K/mm3 (4.0-10.0) H 05/24/19 10:00 RBC 3.54 M/mm3 (3.60-5.2) L 05/24/19 10:00 Hgb 8.7 GM/dL (10.7-15.3) L 05/24/19 10:00 Hct 27.4 % (32.4-45.2) L 05/24/19 10:00 MCV 77.2 fl (80-96) L 05/24/19 10:00 MCHC 31.9 g/dl (32.0-36.0) L 05/24/19 10:00 RDW 16.7 % (11.6-15.6) H 05/24/19 10:00 Plt Count 106 K/MM3 (134-434) L D 05/24/19 10:00 MPV 10.7 fl (7.5-11.1) 05/24/19 10:00 CMP Sodium 143 mmol/L (136-145) 05/24/19 10:00 Potassium 4.1 mmol/L (3.5-5.1) 05/24/19 10:00 Chloride 118 mmol/L (98-107) H 05/24/19 10:00 Carbon Dioxide 19 mmol/L (21-32) L 05/24/19 10:00 Anion Gap 6 MMOL/L (8-16) L 05/24/19 10:00 BUN 14.0 mg/dL (7-18) 05/24/19 10:00 Creatinine 0.6 mg/dL (0.55-1.3) 05/24/19 10:00 Random Glucose 91 mg/dL (74-106) 05/24/19 10:00 Calcium 7.2 mg/dL (8.5-10.1) L 05/24/19 10:00 Total Bilirubin 0.3 mg/dL (0.2-1) 05/24/19 10:00 AST 8 U/L (15-37) L 05/24/19 10:00 ALT < 6 U/L (13-61) L 05/24/19 10:00 Alkaline Phosphatase 104 U/L (45-117) 05/24/19 10:00 Total Protein 3.9 g/dl (6.4-8.2) L 05/24/19 10:00 Albumin 1.2 g/dl (3.4-5.0) L 05/24/19 10:00 Current Medications Generic Name Dose Route Start Last Admin Trade Name Freq PRN Reason Stop Dose Admin Acetaminophen 750 mg 05/23/19 11:32 Ofirmev Injection - IVPB Q6H PRN PAIN LEVEL 6-10 Cefazolin Sodium/Dextrose 2 gm 05/20/19 18:30 05/24/19 18:01 Ancef 2 Gm Premixed Ivpb - IVPB 2 gm Q8H-IV [facility] Administration Collagenase 1 applic 05/18/19 16:00 05/24/19 11:15 Santyl - TP 1 applic DAILY [facility] Administration Protocol Dextrose 25 gm 05/23/19 20:00 05/23/19 20:16 D50w (Vial) - IVPUSH 25 gm PRN PRN Administration HYPOGLYCEMIA Heparin Sodium (Porcine) 5,000 unit 05/18/19 14:00 05/24/19 15:30 Heparin - SQ 5,000 unit TID [facility] Administration Potassium Chloride 40 meq/ 1,020 mls @ 75 mls/hr 05/23/19 18:00 05/24/19 06: 40 Amino Acids IVPB Not Given Q13H [facility] Home Medications Medication Instructions Recorded Levothyroxine [Synthroid -] 50 mcg PO DAILY 06/21/14 Ranitidine [Zantac -] 150 mg PO BID #30 tablet 07/16/18 Microbiology 05/19/19 12:05 Buttock - Right Gram Stain - Final 05/19/19 12:05 Buttock - Right Wound Culture - Preliminary Escherichia Coli Pseudomonas Aeruginosa Staphylococcus Coagulase Neg Group D Strep Or Entero Coccus Proteus Species 05/17/19 22:32 Blood - Peripheral Venous Blood Culture - Final Staphylococcus Aureus 05/18/19 18:15 Blood - Peripheral Venous Blood Culture - Final Staphylococcus Aureus 05/18/19 18:00 Blood - Peripheral Venous Blood Culture - Final Staphylococcus Aureus 05/18/19 00:17 Urine - Urine Clean Catch Urine Culture - Final Klebsiella Pneumoniae 05/17/19 22:32 Blood - Peripheral Venous Blood Culture - Final Staphylococcus Aureus Assessment and plan: Patient is an 89 y/o with home hospice was brought in by the family member due to increased lethargy. she is supposedly on home Hospice care but family brought her here. # Acute hypernatremia : on clinimax now with KCL as per nephro, repeat cmp in am check sodium and potassium # Severe sepsis : on IV ancef 2gm added levaquin 500mg IV received one dose yesterday ,but discontinued by ID # Staph bacteremia ( G+ cocci in blood ) on IV ancef 2gm continue, will repeat blood cx in am # Severe dehydration : continue IVF improving # hypotension : now normotensive , continue IVF # Stage 4 Decub ulcer and positive drainage from the right hip. on IV antibiotics # Acute hypokalemia replete will start her clinimax at 75cc/hr with 40kcl - total free water deficit is about 2 liters #Nutrition: clinamax Iv discussed with the son who is at bedside, [place] papers are signed, since patient' s son wants her to have IVF and IV antibioitics , no intubation
[2019-05-25] MEDS: ceFAZolin 2 GRAM PREMIX BAG IVPB SCH ×3 (02:58→18:02)
[2019-05-25] MEDS: HEPARIN NA (PORCINE) 5,000 UNITS/ML 1ML VIAL SQ SCH ×3 (06:43→21:53)
[2019-05-25 08:35] LABS: HEMATOCRIT 26.8 % (32.4-45.2); HEMOGLOBIN 8.6 GM/dL (10.7-15.3); MCH 24.9 pg (25.7-33.7); MCHC 32.2 g/dl (32.0-36.0); MEAN CELL VOLUME 77.4 fl (80-96); MEAN PLT VOLUME 10.8 fl (7.5-11.1); PLATELET COUNT 119 K/MM3 (134-434); RBC 3.47 M/mm3 (3.60-5.2); RDW 16.4 % (11.6-15.6); WHITE BLOOD COUNT 10.8 K/mm3 (4.0-10.0)
[2019-05-25] MEDS: POTASSIUM CHLORIDE 40 MEQ in AMINO ACIDS 4.25%/D5W 1,000 ML IVPB SCH (09:00)
[2019-05-25 09:08] LABS: ALBUMIN 1.2 g/dl (3.4-5.0); ALK PHOS 96 U/L (45-117); ANION GAP 5 MMOL/L (8-16); BILIRUBIN,TOTAL 0.2 mg/dL (0.2-1); CALCIUM 7.2 mg/dL (8.5-10.1); CHLORIDE 115 mmol/L (98-107); CO2 19 mmol/L (21-32); CREATININE 0.5 mg/dL (0.55-1.3); GLUCOSE,RANDOM 77 mg/dL (74-106); MAGNESIUM 1.8 mg/dL (1.8-2.4); PHOSPHOROUS 1.7 mg/dL (2.5-4.9); SGOT/AST 11 U/L (15-37); SGPT/ALT < 6 U/L (13-61); SODIUM 140 mmol/L (136-145); TOT PROT 3.9 g/dl (6.4-8.2)
--- NOTE | 2019-05-25 10:06 | PN ---
Physical Exam: SUBJECTIVE: Patient seen and examined. She is non-verbal. OBJECTIVE: Vital Signs Period Temp Pulse Resp BP Sys/Chinchilla Pulse Ox Last 24 Hr 97.9 F-98.7 F 78-88 18-18 98-114/50-68 100 GENERAL: Patient opens eyes. HEAD: Normal with no signs of trauma. Tooth loss. EYES: Conjunctiva clear. ENT: Ears normal, nares patent, moist mucous membranes, erythematous tongue NECK: Trachea midline LUNGS: Clear to auscultation bilaterally, no wheezes HEART: Regular rate and rhythm, systolic murmur ABDOMEN: Soft, nontender, nondistended, normoactive bowel sounds EXTREMITIES: well-perfused, right arm edematous at mid-arm with IV infusing, b/ l arms slightly cool to touch, +2 pitting edema in feet. NEUROLOGICAL: Cannot be assessed. PSYCH: Cannot be assessed. SKIN: Warm, dry, sacral decubitus and right trochanteric ulcers bandaged. Laboratory Results - last 24 hr 05/24/19 05/24/19 05/24/19 10:00 10:00 17:28 WBC 13.8 H RBC 3.54 L Hgb 8.7 L Hct 27.4 L MCV 77.2 L MCH 24.6 L MCHC 31.9 L RDW 16.7 H Plt Count 106 L D MPV 10.7 Absolute Neuts (auto) 12.8 H Neutrophils % 93.1 H Neutrophils % (Manual) 92.0 H Band Neutrophils % 0.0 Lymphocytes % 4.9 L D Lymphocytes % (Manual) 7.0 L D Monocytes % 1.8 L Monocytes % (Manual) 1 L Eosinophils % 0.1 Eosinophils % (Manual) 0.0 Basophils % 0.1 Basophils % (Manual) 0.0 Myelocytes % (Man) 0 Promyelocytes % (Man) 0 Blast Cells % (Manual) 0 Nucleated RBC % 0 Metamyelocytes 0 Hypochromia 0 Platelet Estimate Decreased Polychromasia 1+ Poikilocytosis 2+ Anisocytosis 1+ Microcytosis 1+ Macrocytosis 0 Acanthocytes (Spur) 1+ Schistocytes 1+ Sodium 143 Potassium 4.1 Chloride 118 H Carbon Dioxide 19 L Anion Gap 6 L BUN 14.0 Creatinine 0.6 Est GFR (CKD-EPI)AfAm 93.66 Est GFR (CKD-EPI)NonAf 80.81 POC Glucometer 81 Random Glucose 91 Calcium 7.2 L Phosphorus 3.0 Magnesium 1.8 Total Bilirubin 0.3 AST 8 L ALT < 6 L Alkaline Phosphatase 104 Total Protein 3.9 L Albumin 1.2 L 05/24/19 05/25/19 05/25/19 23:44 06:49 07:20 WBC RBC Hgb Hct MCV MCH MCHC RDW Plt Count MPV Absolute Neuts (auto) Neutrophils % Neutrophils % (Manual) Band Neutrophils % Lymphocytes % Lymphocytes % (Manual) Monocytes % Monocytes % (Manual) Eosinophils % Eosinophils % (Manual) Basophils % Basophils % (Manual) Myelocytes % (Man) Promyelocytes % (Man) Blast Cells % (Manual) Nucleated RBC % Metamyelocytes Hypochromia Platelet Estimate Polychromasia Poikilocytosis Anisocytosis Microcytosis Macrocytosis Acanthocytes (Spur) Schistocytes Sodium 140 Potassium 4.0 Chloride 115 H Carbon Dioxide 19 L Anion Gap 5 L BUN 17.0 Creatinine 0.5 L Est GFR (CKD-EPI)AfAm 99.45 Est GFR (CKD-EPI)NonAf 85.81 POC Glucometer 73 88 Random Glucose 77 Calcium 7.2 L Phosphorus 1.7 L Magnesium 1.8 Total Bilirubin 0.2 AST 11 L ALT < 6 L Alkaline Phosphatase 96 Total Protein 3.9 L Albumin 1.2 L 05/25/19 07:20 WBC 10.8 H RBC 3.47 L Hgb 8.6 L Hct 26.8 L MCV 77.4 L MCH 24.9 L MCHC 32.2 RDW 16.4 H Plt Count 119 L MPV 10.8 Absolute Neuts (auto) Neutrophils % Neutrophils % (Manual) Band Neutrophils % Lymphocytes % Lymphocytes % (Manual) Monocytes % Monocytes % (Manual) Eosinophils % Eosinophils % (Manual) Basophils % Basophils % (Manual) Myelocytes % (Man) Promyelocytes % (Man) Blast Cells % (Manual) Nucleated RBC % Metamyelocytes Hypochromia Platelet Estimate Polychromasia Poikilocytosis Anisocytosis Microcytosis Macrocytosis Acanthocytes (Spur) Schistocytes Sodium Potassium Chloride Carbon Dioxide Anion Gap BUN Creatinine Est GFR (CKD-EPI)AfAm Est GFR (CKD-EPI)NonAf POC Glucometer Random Glucose Calcium Phosphorus Magnesium Total Bilirubin AST ALT Alkaline Phosphatase Total Protein Albumin Active Medications Generic Name Dose Route Start Last Admin Trade Name Freq PRN Reason Stop Dose Admin Acetaminophen 750 mg 05/23/19 11:32 Ofirmev Injection - IVPB Q6H PRN PAIN LEVEL 6-10 Cefazolin Sodium/Dextrose 2 gm 05/20/19 18:30 05/25/19 02:58 Ancef 2 Gm Premixed Ivpb - IVPB 2 gm Q8H-IV [facility] Administration Collagenase 1 applic 05/18/19 16:00 05/24/19 11:15 Santyl - TP 1 applic DAILY [facility] Administration Protocol Dextrose 25 gm 05/23/19 20:00 05/23/19 20:16 D50w (Vial) - IVPUSH 25 gm PRN PRN Administration HYPOGLYCEMIA Heparin Sodium (Porcine) 5,000 unit 05/18/19 14:00 05/25/19 06:43 Heparin - SQ 5,000 unit TID [facility] Administration Potassium Chloride 40 meq/ 1,020 mls @ 75 mls/hr 05/23/19 18:00 05/24/19 23: 34 Amino Acids IVPB 75 mls/hr Q13H [facility] Administration ASSESSMENT/PLAN: Ms. Rust is an 89y/o female (hospice patient prior to admission) with dementia , HTN, recurrent UTI, constipation, hypothyroidism, and malnutrition who presents with increased weakness and lethargy. Pt was admitted for severe sepsis 2/2 UTI and bacteremia. 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 -blood cx positive for staph aureus x 3, cultures from yesterday pending -Cefazolin 2gm Q8H (start 05/20) -echo -IV fluids for hypotension PRN -ID following -cards consulted -continue discussing goals of care #stage 4 decubitus ulcer -cx grew multiple organisms in low numbers -Cefazolin #severe dehydration and malnutrition -continue Clinimix with KCl -dextrose PRN with BGM #hypophosphatemia -K Phos 30meq -monitor labs #hyperchloridemia, improving -continue supplementation #hypernatremia, resolved #hypokalemia, resolved #hypomagnesemia, resolved -monitor labs #oral thrush, resolved DVT Ppx heparin FEN monitor all labs Clinimix 75mL/hr with K code status DNR/DNI Visit type - Emergency Visit Emergency Visit: Yes ED Registration Date: 05/18/19 Care time: The patient presented to the Emergency Department on the above date and was hospitalized for further evaluation of their emergent condition. - New Patient This patient is new to me today: No - Critical Care Critical Care patient: No - Discharge Referral Referred to [facility] Med P.C.: No ATTENDING PHYSICIAN STATEMENT I saw and evaluated the patient. I reviewed the resident's note and discussed the case with the resident. I agree with the resident's findings and plan as documented. SUBJECTIVE: OBJECTIVE: ASSESSMENT AND PLAN:
[2019-05-25] MEDS: COLLAGENASE CLOSTRIDIUM HIST. 30 GRAMS TUBE TP SCH (11:00)
[2019-05-25] MEDS ORDERED: POTASSIUM PHOSPHATE 30 MM in SODIUM CHLORIDE 500 ML IVPB ONE (11:34)
--- NOTE | 2019-05-25 14:36 | PN ---
Teaching Attending Note Name of Resident: Padmaja Henderson ATTENDING PHYSICIAN STATEMENT I saw and evaluated the patient. I reviewed the resident's note and discussed the case with the resident. I agree with the resident's findings and plan as documented. SUBJECTIVE: Patient is lying in bed eyes open, more awake, but nonverbal. Vital Signs Temperature 98.7 F 05/25/19 06:00 Pulse Rate 81 05/25/19 06:00 Respiratory Rate 18 05/25/19 06:00 Blood Pressure 98/50 L 05/25/19 06:00 O2 Sat by Pulse Oximetry (%) 100 05/24/19 21:00 GENERAL: The patient is unresponsive, contracted, but comfortable HEAD: Normal with no signs of trauma. EYES: PERRL, extraocular movements intact, sclera anicteric, conjunctiva clear. ENT: Ears normal, dry mucus membrane , dry skin NECK: Trachea midline, full range of motion, supple. LUNGS: decreased Breath sounds bl , no wheezes, no crackles, no accessory muscle use. HEART: Regular rate and rhythm, S1, S2 positive, SHIMON 2/6 , no rub or gallop. ABDOMEN: Soft, NT,ND, normoactive bowel sounds, no guarding, no rebound, no hepatosplenomegaly, no masses. EXTREMITIES: 2+ pulses, warm, contracted LE NEUROLOGICAL: Cranial nerves II through XII grossly intact. gait not observed. PSYCH: non verbal , skin: Warm ,dry skin decub ulcer, stage 4, no discharge , no erythema , drainage from the right hip area Home Medications Medication Instructions Recorded Levothyroxine [Synthroid -] 50 mcg PO DAILY 06/21/14 Ranitidine [Zantac -] 150 mg PO BID #30 tablet 07/16/18 Current Medications Generic Name Dose Route Start Last Admin Trade Name Freq PRN Reason Stop Dose Admin Acetaminophen 750 mg 05/23/19 11:32 Ofirmev Injection - IVPB Q6H PRN PAIN LEVEL 6-10 Cefazolin Sodium/Dextrose 2 gm 05/20/19 18:30 05/25/19 10:08 Ancef 2 Gm Premixed Ivpb - IVPB 2 gm Q8H-IV GLORY Administration Collagenase 1 applic 05/18/19 16:00 05/25/19 11:00 Santyl - TP 1 applic DAILY GLORY Administration Protocol Dextrose 25 gm 05/23/19 20:00 05/23/19 20:16 D50w (Vial) - IVPUSH 25 gm PRN PRN Administration HYPOGLYCEMIA Heparin Sodium (Porcine) 5,000 unit 05/18/19 14:00 05/25/19 06:43 Heparin - SQ 5,000 unit TID GLORY Administration Potassium Chloride 40 meq/ 1,020 mls @ 75 mls/hr 05/23/19 18:00 05/24/19 23: 34 Amino Acids IVPB 75 mls/hr Q13H GLORY Administration Potassium Phosphate 30 mm/ 510 mls @ 75 mls/hr 05/25/19 11:34 Sodium Chloride IVPB 05/25/19 18:21 ONCE ONE CBCD WBC 10.8 K/mm3 (4.0-10.0) H 05/25/19 07:20 RBC 3.47 M/mm3 (3.60-5.2) L 05/25/19 07:20 Hgb 8.6 GM/dL (10.7-15.3) L 05/25/19 07:20 Hct 26.8 % (32.4-45.2) L 05/25/19 07:20 MCV 77.4 fl (80-96) L 05/25/19 07:20 MCHC 32.2 g/dl (32.0-36.0) 05/25/19 07:20 RDW 16.4 % (11.6-15.6) H 05/25/19 07:20 Plt Count 119 K/MM3 (134-434) L 05/25/19 07:20 MPV 10.8 fl (7.5-11.1) 05/25/19 07:20 CMP Sodium 140 mmol/L (136-145) 05/25/19 07:20 Potassium 4.0 mmol/L (3.5-5.1) 05/25/19 07:20 Chloride 115 mmol/L (98-107) H 05/25/19 07:20 Carbon Dioxide 19 mmol/L (21-32) L 05/25/19 07:20 Anion Gap 5 MMOL/L (8-16) L 05/25/19 07:20 BUN 17.0 mg/dL (7-18) 05/25/19 07:20 Creatinine 0.5 mg/dL (0.55-1.3) L 05/25/19 07:20 Random Glucose 77 mg/dL (74-106) 05/25/19 07:20 Calcium 7.2 mg/dL (8.5-10.1) L 05/25/19 07:20 Total Bilirubin 0.2 mg/dL (0.2-1) 05/25/19 07:20 AST 11 U/L (15-37) L 05/25/19 07:20 ALT < 6 U/L (13-61) L 05/25/19 07:20 Alkaline Phosphatase 96 U/L (45-117) 05/25/19 07:20 Total Protein 3.9 g/dl (6.4-8.2) L 05/25/19 07:20 Albumin 1.2 g/dl (3.4-5.0) L 05/25/19 07:20 Microbiology 05/19/19 12:05 Buttock - Right Gram Stain - Final 05/19/19 12:05 Buttock - Right Wound Culture - Preliminary Escherichia Coli Pseudomonas Aeruginosa Staphylococcus Coagulase Neg Group D Strep Or Entero Coccus Proteus Species 05/17/19 22:32 Blood - Peripheral Venous Blood Culture - Final Staphylococcus Aureus 05/18/19 18:15 Blood - Peripheral Venous Blood Culture - Final Staphylococcus Aureus 05/18/19 18:00 Blood - Peripheral Venous Blood Culture - Final Staphylococcus Aureus 05/18/19 00:17 Urine - Urine Clean Catch Urine Culture - Final Klebsiella Pneumoniae 05/17/19 22:32 Blood - Peripheral Venous Blood Culture - Final Staphylococcus Aureus Assessment and plan: Patient is an 89 y/o with home hospice was brought in by the family member due to increased lethargy. she is supposedly on home Hospice care but family brought her here. # Acute hypernatremia :improved , nl sodium level now,continue clinimax now without KCL as per nephro, repeat cmp in am check sodium and potassium # Severe sepsis : on IV ancef 2gm added levaquin 500mg IV received one dose yesterday ,but discontinued by ID # Staph bacteremia ( G+ cocci in blood ) on IV ancef 2gm continue, will repeat blood cx in am # Severe dehydration : continue IVF improving # hypotension : now normotensive , continue IVF # Stage 4 Decub ulcer and positive drainage from the right hip. on IV antibiotics # Acute hypokalemia repleted improved now, continue clinimax at 75cc/hr without 40kcl - total free water deficit is about 2 liters #Nutrition: clinamax Iv discussed with the son who is at bedside, [place] papers are signed, since patient' s son wants her to have IVF and IV antibioitics , no intubation
[2019-05-25] MEDS ORDERED: PT OWN MED DRAWER 7, Y5N ONE (17:42)
[2019-05-25] MEDS ORDERED: DEXTROSE 50%-WATER 25 GM/50 ML DISP.SYRIN ONE (17:46)
[2019-05-25] MEDS: DEXTROSE 50%-WATER - 25 GM/50 ML VIAL IVPUSH PRN (17:48)
--- NOTE | 2019-05-25 17:53 | PN ---
Progress Note, Physician History of Present Illness: Pt seen and examined at bedside. She appears comfortable. - Current Medication List Current Medications: Active Medications Acetaminophen (Ofirmev Injection -) 750 mg IVPB Q6H PRN PRN Reason: PAIN LEVEL 6-10 Cefazolin Sodium/Dextrose (Ancef 2 Gm Premixed Ivpb -) 2 gm IVPB Q8H-IV GLORY Last Admin: 05/25/19 10:08 Dose: 2 gm Collagenase (Santyl -) 1 applic TP DAILY GLORY; Protocol Last Admin: 05/25/19 11:00 Dose: 1 applic Dextrose (D50w (Vial) -) 25 gm IVPUSH PRN PRN PRN Reason: HYPOGLYCEMIA Last Admin: 05/23/19 20:16 Dose: 25 gm Heparin Sodium (Porcine) (Heparin -) 5,000 unit SQ TID GLORY Last Admin: 05/25/19 15:14 Dose: 5,000 unit Potassium Phosphate 30 mm/ (Sodium Chloride) 510 mls @ 75 mls/hr IVPB ONCE ONE Stop: 05/25/19 18:21 Last Admin: 05/25/19 15:03 Dose: 75 mls/hr Amino Acids (Clinimix -) 1,000 mls @ 42 mls/hr IV Q24H GLORY - Objective Vital Signs: Vital Signs Temperature 97.8 F 05/25/19 14:00 Pulse Rate 91 H 05/25/19 14:00 Respiratory Rate 18 05/25/19 14:00 Blood Pressure 97/74 05/25/19 14:00 O2 Sat by Pulse Oximetry (%) 100 05/24/19 21:00 Constitutional: Yes: Calm Eyes: Yes: Conjunctiva Clear HENT: Yes: Atraumatic Neck: Yes: Supple Cardiovascular: Yes: S1, S2 Respiratory: Yes: CTA Bilaterally Gastrointestinal: Yes: Soft Genitourinary: Yes: WNL Musculoskeletal: Yes: WNL Edema: No Neurological: Yes: Lethargy Labs: CBC, BMP 05/25/19 07:20 05/25/19 07:20 Assessment/Plan Current Medications Generic Name Dose Route Start Last Admin Trade Name Freq PRN Reason Stop Dose Admin Acetaminophen 750 mg 05/23/19 11:32 Ofirmev Injection - IVPB Q6H PRN PAIN LEVEL 6-10 Cefazolin Sodium/Dextrose 2 gm 05/20/19 18:30 05/25/19 10:08 Ancef 2 Gm Premixed Ivpb - IVPB 2 gm Q8H-IV GLORY Administration Collagenase 1 applic 05/18/19 16:00 05/25/19 11:00 Santyl - TP 1 applic DAILY GLORY Administration Protocol Dextrose 25 gm 05/23/19 20:00 05/23/19 20:16 D50w (Vial) - IVPUSH 25 gm PRN PRN Administration HYPOGLYCEMIA Heparin Sodium (Porcine) 5,000 unit 05/18/19 14:00 05/25/19 15:14 Heparin - SQ 5,000 unit TID GLORY Administration Potassium Phosphate 30 mm/ 510 mls @ 75 mls/hr 05/25/19 11:34 05/25/19 15:03 Sodium Chloride IVPB 05/25/19 18:21 75 mls/hr ONCE ONE Administration Amino Acids 1,000 mls @ 42 mls/hr 05/25/19 14:45 Clinimix - IV Q24H GLORY Laboratory Tests 05/25/19 07:20 Phosphorus 1.7 L Impression 1. hypernatremia 2. ashtyn 3. sepsis 4. hypotension in pt with hx of hypertension 5. recurrent uti 6. dementia 7. bacteremia Plan - sodium improved - renal function stabilizing - cont clinimix - replace phos - abx per medical team
[2019-05-26] MEDS: AMINO ACIDS 4.25%/D5W 1,000 ML IV SCH ×2 (01:42→14:45)
[2019-05-26] MEDS: ceFAZolin 2 GRAM PREMIX BAG IVPB SCH ×3 (02:01→17:18)
[2019-05-26] MEDS: HEPARIN NA (PORCINE) 5,000 UNITS/ML 1ML VIAL SQ SCH ×3 (05:41→23:57)
--- NOTE | 2019-05-26 06:55 | ECHO ---
Name: DALTON FARIAS Exam:Adult Echocardiogram Study Date: 05/25/2019 01:09 PM Age: 89 yrs Reason For Study: r/o endocarditia Height: 62 in Weight: 98 lb BSA: 1.4 m2 MMode/2D Measurements & Calculations ACS: 1.2 cm Doppler Measurements & Calculations MV E max al: 48.6 cm/sec Ao V2 max: 119.8 cm/sec MV A max al: 68.1 cm/sec Ao max P.7 mmHg MV E/A: 0.71 Ao V2 mean: 78.1 cm/sec Ao mean P.0 mmHg Ao V2 VTI: 20.2 cm TR max al: 238.9 cm/sec Med Peak E' Al: 5.5 cm/sec TR max P.8 mmHg Med E/e': 8.9 Lat Peak E' Al: 6.1 cm/sec Lat E/e': 7.9 Procedure The study was technically limited with all images being suboptimal in quality. The patient was contra cted and uncooperative durinng the exam. A two-dimensional transthoracic echocardiogram with color flow and Do ppler was performed in limited views only. Left Ventricle The left ventricle is grossly normal size. The left ventricular ejection fraction is grossly normal. Right Ventricle The right ventricle is normal in size and function. Atria Borderline left atrial enlargement. Right atrial size is normal. Mitral Valve There is moderate mitral annular calcification. Tricuspid Valve The tricuspid valve is not well visualized. Aortic Valve There is moderate aortic sclerosis.;. Hemodynamically significant valvular aortic stenosis cannot be excluded. Pulmonic Valve The pulmonic valve is not well visualized. Great Vessels The aortic root is not well visualized. Pericardium/Pleura There is no pericardial effusion. Interpretation Summary The study was technically limited with all images being suboptimal in quality. The patient was contra cted and uncooperative durinng the exam. A two-dimensional transthoracic echocardiogram with color flow and Do ppler was performed in limited views only. The left ventricle is grossly normal size. The left ventricular ejection fraction is grossly normal. The right ventricle is normal in size and function. Borderline left atrial enlargement. Right atrial size is normal. There is moderate aortic sclerosis.; Hemodynamically significant valvular aortic stenosis cannot be e xcluded. There is moderate mitral annular calcification. MD Mishel Duncan 05/25/2019 02:41 PM
[2019-05-26 08:18] LABS: HEMATOCRIT 22.7 % (32.4-45.2); HEMOGLOBIN 7.4 GM/dL (10.7-15.3); MCH 25.1 pg (25.7-33.7); MCHC 32.4 g/dl (32.0-36.0); MEAN CELL VOLUME 77.5 fl (80-96); PLATELET COUNT 150 K/MM3 (134-434); RBC 2.93 M/mm3 (3.60-5.2); RDW 16.2 % (11.6-15.6); WHITE BLOOD COUNT 7.2 K/mm3 (4.0-10.0)
[2019-05-26 08:53] LABS: ALBUMIN 1.2 g/dl (3.4-5.0); ALK PHOS 100 U/L (45-117); ANION GAP 6 MMOL/L (8-16); BILIRUBIN,TOTAL 0.2 mg/dL (0.2-1); BLOOD UREA NITROGEN 16.3 mg/dL (7-18); CALCIUM 7.2 mg/dL (8.5-10.1); CHLORIDE 115 mmol/L (98-107); CO2 19 mmol/L (21-32); CREATININE 0.4 mg/dL (0.55-1.3); GLUCOSE,RANDOM 80 mg/dL (74-106); MAGNESIUM 1.7 mg/dL (1.8-2.4); PHOSPHOROUS 2.4 mg/dL (2.5-4.9); POTASSIUM 3.8 mmol/L (3.5-5.1); SGOT/AST 21 U/L (15-37); SGPT/ALT < 6 U/L (13-61); SODIUM 140 mmol/L (136-145); TOT PROT 3.6 g/dl (6.4-8.2)
[2019-05-26] MEDS ORDERED: MAGNESIUM SULF 50% (8.12 MEQ/2 ML-1 GM VIAL) IVPB ONE (09:00)
--- NOTE | 2019-05-26 12:09 | PN ---
Progress Note, Physician History of Present Illness: Pt seen and examined at bedside. She is awake but not interactive. - Current Medication List Current Medications: Active Medications Acetaminophen (Ofirmev Injection -) 750 mg IVPB Q6H PRN PRN Reason: PAIN LEVEL 6-10 Cefazolin Sodium/Dextrose (Ancef 2 Gm Premixed Ivpb -) 2 gm IVPB Q8H-IV GLORY Last Admin: 05/26/19 09:19 Dose: 2 gm Collagenase (Santyl -) 1 applic TP DAILY GLORY; Protocol Last Admin: 05/25/19 11:00 Dose: 1 applic Dextrose (D50w (Vial) -) 25 gm IVPUSH PRN PRN PRN Reason: HYPOGLYCEMIA Last Admin: 05/25/19 17:48 Dose: 25 gm Heparin Sodium (Porcine) (Heparin -) 5,000 unit SQ TID GLORY Last Admin: 05/26/19 05:41 Dose: 5,000 unit Amino Acids (Clinimix -) 1,000 mls @ 42 mls/hr IV Q24H GLORY Last Admin: 05/26/19 01:42 Dose: 42 mls/hr - Objective Vital Signs: Vital Signs Temperature 97.5 F L 05/26/19 06:00 Pulse Rate 77 05/26/19 06:00 Respiratory Rate 18 05/26/19 06:00 Blood Pressure 116/49 L 05/26/19 06:00 O2 Sat by Pulse Oximetry (%) 100 05/25/19 21:00 Constitutional: Yes: Calm Eyes: Yes: Conjunctiva Clear HENT: Yes: Atraumatic Neck: Yes: Supple Cardiovascular: Yes: S1, S2 Respiratory: Yes: CTA Bilaterally Gastrointestinal: Yes: Normal Bowel Sounds, Soft Genitourinary: Yes: Incontinence Musculoskeletal: Yes: Muscle Weakness Edema: No Neurological: Yes: Confusion Labs: CBC, BMP 05/26/19 07:47 05/26/19 07:47 Assessment/Plan Current Medications Generic Name Dose Route Start Last Admin Trade Name Freq PRN Reason Stop Dose Admin Acetaminophen 750 mg 05/23/19 11:32 Ofirmev Injection - IVPB Q6H PRN PAIN LEVEL 6-10 Cefazolin Sodium/Dextrose 2 gm 05/20/19 18:30 05/26/19 09:19 Ancef 2 Gm Premixed Ivpb - IVPB 2 gm Q8H-IV GLORY Administration Collagenase 1 applic 05/18/19 16:00 05/25/19 11:00 Santyl - TP 1 applic DAILY GLORY Administration Protocol Dextrose 25 gm 05/23/19 20:00 05/25/19 17:48 D50w (Vial) - IVPUSH 25 gm PRN PRN Administration HYPOGLYCEMIA Heparin Sodium (Porcine) 5,000 unit 05/18/19 14:00 05/26/19 05:41 Heparin - SQ 5,000 unit TID GLORY Administration Amino Acids 1,000 mls @ 42 mls/hr 05/25/19 14:45 05/26/19 01:42 Clinimix - IV 42 mls/hr Q24H GLORY Administration Impression 1. hypernatremia 2. ashtyn 3. sepsis 4. hypotension in pt with hx of hypertension 5. recurrent uti 6. dementia 7. bacteremia Plan - cont clinimix - replace lytes - discuss GOC with family with regard to feeding - abx per medical team
--- NOTE | 2019-05-26 15:15 | PN ---
Physical Exam: SUBJECTIVE: Patient seen and examined. She is non-verbal. OBJECTIVE: Vital Signs Period Temp Pulse Resp BP Sys/Chinchilla Pulse Ox Last 24 Hr 97.5 F-97.6 F 77-91 18-18 102-116/49-60 100 GENERAL: Patient opens eyes, makes contact. HEAD: Normal with no signs of trauma. Tooth loss. EYES: Conjunctiva clear. ENT: Ears normal, nares patent, moist mucous membranes, erythematous tongue NECK: Trachea midline LUNGS: Clear to auscultation bilaterally, no wheezes HEART: Regular rate and rhythm, systolic murmur ABDOMEN: Soft, nontender, nondistended, normoactive bowel sounds EXTREMITIES: well-perfused, right UE edema from infusion--stable from yesterday with no erythema at site, b/l arms slightly cool to touch, +2 pitting edema in feet. NEUROLOGICAL: Cannot be assessed. PSYCH: Cannot be assessed. SKIN: Warm, dry, sacral decubitus and right trochanteric ulcers bandaged. Laboratory Results - last 24 hr 05/25/19 05/25/19 05/26/19 17:40 18:32 05:22 WBC RBC Hgb Hct MCV MCH MCHC RDW Plt Count MPV Sodium Potassium Chloride Carbon Dioxide Anion Gap BUN Creatinine Est GFR (CKD-EPI)AfAm Est GFR (CKD-EPI)NonAf POC Glucometer 59 135 69 Random Glucose Calcium Phosphorus Magnesium Total Bilirubin AST ALT Alkaline Phosphatase Total Protein Albumin 05/26/19 05/26/19 05/26/19 07:47 07:47 12:16 WBC 7.2 RBC 2.93 L Hgb 7.4 L Hct 22.7 L D MCV 77.5 L MCH 25.1 L MCHC 32.4 RDW 16.2 H Plt Count 150 D MPV 10.0 Sodium 140 Potassium 3.8 Chloride 115 H Carbon Dioxide 19 L Anion Gap 6 L BUN 16.3 Creatinine 0.4 L Est GFR (CKD-EPI)AfAm 107.03 Est GFR (CKD-EPI)NonAf 92.34 POC Glucometer 82 Random Glucose 80 Calcium 7.2 L Phosphorus 2.4 L Magnesium 1.7 L Total Bilirubin 0.2 AST 21 ALT < 6 L Alkaline Phosphatase 100 Total Protein 3.6 L Albumin 1.2 L Active Medications Generic Name Dose Route Start Last Admin Trade Name Freq PRN Reason Stop Dose Admin Acetaminophen 750 mg 05/23/19 11:32 Ofirmev Injection - IVPB Q6H PRN PAIN LEVEL 6-10 Cefazolin Sodium/Dextrose 2 gm 05/20/19 18:30 05/26/19 09:19 Ancef 2 Gm Premixed Ivpb - IVPB 2 gm Q8H-IV GLORY Administration Collagenase 1 applic 05/18/19 16:00 05/25/19 11:00 Santyl - TP 1 applic DAILY GLORY Administration Protocol Dextrose 25 gm 05/23/19 20:00 05/25/19 17:48 D50w (Vial) - IVPUSH 25 gm PRN PRN Administration HYPOGLYCEMIA Heparin Sodium (Porcine) 5,000 unit 05/18/19 14:00 05/26/19 14:17 Heparin - SQ 5,000 unit TID GLORY Administration Amino Acids 1,000 mls @ 42 mls/hr 05/25/19 14:45 05/26/19 01:42 Clinimix - IV 42 mls/hr Q24H GLORY Administration ASSESSMENT/PLAN: Ms. Rust is an 89y/o female (hospice patient prior to admission) with dementia , HTN, recurrent UTI, constipation, hypothyroidism, and malnutrition who presents with increased weakness and lethargy. Pt was admitted for severe sepsis 2/2 UTI and bacteremia. #severe sepsis 2/2 bacteremia -blood cx positive for staph aureus x 3, last set of cx prelim negative -Cefazolin 2gm Q8H (start 05/20) -echo- no vegetations noted -IV fluids for hypotension PRN -ID following -cards consulted -continue discussing goals of care #stage 4 decubitus ulcer, sacral and right trochanteric -cx grew multiple organisms in low numbers -Cefazolin #severe dehydration and malnutrition -continue Clinimix with KCl -dextrose PRN with BGM #microcytic anemia Drop in Hb overnight. No obvious source of bleeding. -continue to monitor #hypophosphatemia -monitor labs #hyperchloridemia, improving -continue supplementation #hypernatremia, resolved #hypokalemia, resolved #hypomagnesemia, resolved -monitor labs #oral thrush, resolved DVT Ppx heparin FEN monitor all labs Clinimix 42mL/hr with K code status DNR/DNI Visit type - Emergency Visit Emergency Visit: Yes ED Registration Date: 05/18/19 Care time: The patient presented to the Emergency Department on the above date and was hospitalized for further evaluation of their emergent condition. - New Patient This patient is new to me today: No - Critical Care Critical Care patient: No - Discharge Referral Referred to [facility] Med P.C.: No ATTENDING PHYSICIAN STATEMENT I saw and evaluated the patient. I reviewed the resident's note and discussed the case with the resident. I agree with the resident's findings and plan as documented. SUBJECTIVE: OBJECTIVE: ASSESSMENT AND PLAN:
[2019-05-26] MEDS ORDERED: POTASSIUM PHOSPHATE IVPB ONE (15:18)
[2019-05-26] MEDS ORDERED: SODIUM CHLORIDE IVPB ONE (15:18)
[2019-05-26] MEDS: COLLAGENASE CLOSTRIDIUM HIST. 30 GRAMS TUBE TP SCH (17:30)
--- NOTE | 2019-05-26 18:32 | PN ---
Progress Note (short form) - Note Progress Note: nad Vital Signs Period Temp Pulse Resp BP Sys/Chinchilla Pulse Ox Last 24 Hr 97.5 F-98.7 F 77-90 18-18 98-116/49-60 98-100 cor-rrr lungs clear abd soft,nt ext edema of the hands contracted lower extremities sacral and hip ulcers CBC, BMP 05/26/19 07:47 05/26/19 07:47 Microbiology 05/24/19 11:20 Blood - Peripheral Venous Blood Culture - Preliminary NO GROWTH OBTAINED AFTER 48 HOURS, INCUBATION TO CONTINUE FOR 3 DAYS. 05/24/19 10:00 Blood - Peripheral Venous Blood Culture - Preliminary NO GROWTH OBTAINED AFTER 48 HOURS, INCUBATION TO CONTINUE FOR 3 DAYS. 05/21/19 07:20 Blood - Peripheral Venous Blood Culture - Final Staphylococcus Aureus 05/21/19 07:10 Blood - Peripheral Venous Blood Culture - Final Staphylococcus Aureus 05/19/19 12:05 Buttock - Right Gram Stain - Final 05/19/19 12:05 Buttock - Right Wound Culture - Final Escherichia Coli Pseudomonas Aeruginosa Staphylococcus Coagulase Neg Enterococcus Faecalis Proteus Mirabilis 05/17/19 22:32 Blood - Peripheral Venous Blood Culture - Final Staphylococcus Aureus 05/18/19 18:15 Blood - Peripheral Venous Blood Culture - Final Staphylococcus Aureus 05/18/19 18:00 Blood - Peripheral Venous Blood Culture - Final Staphylococcus Aureus 05/18/19 00:17 Urine - Urine Clean Catch Urine Culture - Final Klebsiella Pneumoniae 05/17/19 22:32 Blood - Peripheral Venous Blood Culture - Final Staphylococcus Aureus a/p MSSA bacteremia-continue cefazolin Klebsiella UTI-continue cefazolin stage 4 sacral ulcer-clean with exposed bone thrombocytopenia-most likely sepsis--resolved severe dementia thrush-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
--- NOTE | 2019-05-26 18:33 | PN ---
Teaching Attending Note Name of Resident: Jessika Roberts ATTENDING PHYSICIAN STATEMENT I saw and evaluated the patient. I reviewed the resident's note and discussed the case with the resident. I agree with the resident's findings and plan as documented. SUBJECTIVE: unable to obtain hx. linda t bedside and thinks she is very close to her base line OBJECTIVE: MMM CV: RRR Lungs: decreased breath sounds at bases abd: soft , NT A/p 1- Severe sepsis : improved 2- Staph bacteremia . MSSA 3- Severe dehydration: resolved 4- hypotension :improved 5- Stage 4 Decub ulcer 6- severe protein calorie malnutrition . 7- cachexia plan : - cont clinimix - cont cefazolin - replete mag - golas of care were d./w son . He does not want feeding tubes. He understands that clinimix is temporary and severe dehydration can happen again - she will need IV abx Via PICC. he is to decide whether he needs them administered at home or at [place] . - will follow up
[2019-05-27] MEDS: ceFAZolin 2 GRAM PREMIX BAG IVPB SCH ×3 (03:02→18:21)
[2019-05-27] MEDS: AMINO ACIDS 4.25%/D5W 1,000 ML IV SCH ×2 (04:21→15:00)
[2019-05-27] MEDS: HEPARIN NA (PORCINE) 5,000 UNITS/ML 1ML VIAL SQ SCH ×3 (06:49→23:20)
[2019-05-27 08:35] LABS: HEMATOCRIT 24.1 % (32.4-45.2); HEMOGLOBIN 7.7 GM/dL (10.7-15.3); MCH 24.9 pg (25.7-33.7); MEAN CELL VOLUME 77.8 fl (80-96); PLATELET COUNT 165 K/MM3 (134-434); RDW 16.1 % (11.6-15.6); WHITE BLOOD COUNT 5.2 K/mm3 (4.0-10.0)
[2019-05-27 09:10] LABS: ALBUMIN 1.1 g/dl (3.4-5.0); ALK PHOS 92 U/L (45-117); ANION GAP 7 MMOL/L (8-16); BILIRUBIN,TOTAL 0.4 mg/dL (0.2-1); BLOOD UREA NITROGEN 11.8 mg/dL (7-18); CALCIUM 7.2 mg/dL (8.5-10.1); CHLORIDE 114 mmol/L (98-107); CO2 20 mmol/L (21-32); CREATININE 0.3 mg/dL (0.55-1.3); GLUCOSE,RANDOM 69 mg/dL (74-106); PHOSPHOROUS 2.3 mg/dL (2.5-4.9); POTASSIUM 3.7 mmol/L (3.5-5.1); SGOT/AST 21 U/L (15-37); SGPT/ALT < 6 U/L (13-61); SODIUM 141 mmol/L (136-145); TOT PROT 3.7 g/dl (6.4-8.2)
[2019-05-27] MEDS: COLLAGENASE CLOSTRIDIUM HIST. 30 GRAMS TUBE TP SCH (10:56)
--- NOTE | 2019-05-27 14:47 | PN ---
Teaching Attending Note Name of Resident: Padmaja Henderson ATTENDING PHYSICIAN STATEMENT I saw and evaluated the patient. I reviewed the resident's note and discussed the case with the resident. I agree with the resident's findings and plan as documented. SUBJECTIVE: no events over night. OBJECTIVE: MMM. opens eyes but non verbal CV: RRR Lungs: decreased breath sounds at bases abd: soft , NT. ND ,. NL BS Ext : No edema or erythema. no ulcers on heels A/p 1- Severe sepsis : improved 2- Staph bacteremia . MSSA 3- Endocarditis 4- hypotension :improved 5- Stage 4 Decub ulcer 6- severe protein calorie malnutrition . 7- cachexia 8- hypernatremia : resolved plan : - cont clinimix - cont cefazolin day 10/25 since last + blood cx - replete mag - will follow up with son on decision of Abx location
--- NOTE | 2019-05-27 16:13 | PN ---
Progress Note, Physician History of Present Illness: Pt seen and examined at bedside. She appears comfortable. - Current Medication List Current Medications: Active Medications Acetaminophen (Ofirmev Injection -) 750 mg IVPB Q6H PRN PRN Reason: PAIN LEVEL 6-10 Cefazolin Sodium/Dextrose (Ancef 2 Gm Premixed Ivpb -) 2 gm IVPB Q8H-IV GLORY Last Admin: 05/27/19 10:56 Dose: 2 gm Collagenase (Santyl -) 1 applic TP DAILY GLORY; Protocol Last Admin: 05/27/19 10:56 Dose: 1 applic Dextrose (D50w (Vial) -) 25 gm IVPUSH PRN PRN PRN Reason: HYPOGLYCEMIA Last Admin: 05/25/19 17:48 Dose: 25 gm Heparin Sodium (Porcine) (Heparin -) 5,000 unit SQ TID GLORY Last Admin: 05/27/19 15:43 Dose: 5,000 unit Amino Acids (Clinimix -) 1,000 mls @ 42 mls/hr IV Q24H GLORY Last Admin: 05/27/19 04:21 Dose: 42 mls/hr - Objective Vital Signs: Vital Signs Temperature 97.3 F L 05/27/19 06:00 Pulse Rate 83 05/27/19 06:00 Respiratory Rate 18 05/27/19 06:00 Blood Pressure 138/63 05/27/19 06:00 O2 Sat by Pulse Oximetry (%) 100 05/26/19 21:00 Constitutional: Yes: Calm Eyes: Yes: Conjunctiva Clear HENT: Yes: Atraumatic Neck: Yes: Supple Cardiovascular: Yes: S1, S2 Respiratory: Yes: CTA Bilaterally Gastrointestinal: Yes: Soft Genitourinary: Yes: Incontinence Musculoskeletal: Yes: Muscle Weakness Edema: No Neurological: Yes: Confusion Labs: CBC, BMP 05/27/19 07:43 05/27/19 07:43 Assessment/Plan Current Medications Generic Name Dose Route Start Last Admin Trade Name Freq PRN Reason Stop Dose Admin Acetaminophen 750 mg 05/23/19 11:32 Ofirmev Injection - IVPB Q6H PRN PAIN LEVEL 6-10 Cefazolin Sodium/Dextrose 2 gm 05/20/19 18:30 05/27/19 10:56 Ancef 2 Gm Premixed Ivpb - IVPB 2 gm Q8H-IV GLORY Administration Collagenase 1 applic 05/18/19 16:00 05/27/19 10:56 Santyl - TP 1 applic DAILY LGORY Administration Protocol Dextrose 25 gm 05/23/19 20:00 05/25/19 17:48 D50w (Vial) - IVPUSH 25 gm PRN PRN Administration HYPOGLYCEMIA Heparin Sodium (Porcine) 5,000 unit 05/18/19 14:00 05/27/19 15:43 Heparin - SQ 5,000 unit TID GLORY Administration Amino Acids 1,000 mls @ 42 mls/hr 05/25/19 14:45 05/27/19 04:21 Clinimix - IV 42 mls/hr Q24H GLORY Administration Impression 1. hypernatremia 2. ashtyn 3. sepsis 4. hypotension in pt with hx of hypertension 5. recurrent uti 6. dementia 7. bacteremia Plan - replace phos - cont clinimix - replace lytes - son is at bedside and is considering [place] - abx per medical team
[2019-05-27] MEDS ORDERED: POTASSIUM PHOSPHATE 20 MM in DEXTROSE 5%-WATER - 250 ML IVPB ONE (16:14)
--- NOTE | 2019-05-27 16:29 | PN ---
Physical Exam: SUBJECTIVE: Patient seen and examined. She is non-verbal. OBJECTIVE: Vital Signs Period Temp Pulse Resp BP Sys/Chinchilla Pulse Ox Last 24 Hr 97.3 F-99.1 F 76-83 18-18 100-138/45-63 100 GENERAL: Patient makes eye contact. HEAD: Normal with no signs of trauma. Tooth loss. EYES: Conjunctiva clear. ENT: Ears normal, nares patent, moist mucous membranes, erythematous tongue NECK: Trachea midline LUNGS: Clear to auscultation bilaterally, no wheezes HEART: Regular rate and rhythm, systolic murmur ABDOMEN: Soft, nontender, nondistended, normoactive bowel sounds EXTREMITIES: well-perfused, +2 pitting edema b/l feet, arms diffuse ecchymosis mild edema NEUROLOGICAL: Cannot be assessed. PSYCH: Cannot be assessed. SKIN: Warm, dry, sacral decubitus and right trochanteric ulcers clean Laboratory Results - last 24 hr 05/26/19 05/27/19 05/27/19 17:21 06:47 07:43 WBC 5.2 RBC 3.10 L Hgb 7.7 L Hct 24.1 L MCV 77.8 L MCH 24.9 L MCHC 32.0 RDW 16.1 H Plt Count 165 MPV 10.0 Sodium Potassium Chloride Carbon Dioxide Anion Gap BUN Creatinine Est GFR (CKD-EPI)AfAm Est GFR (CKD-EPI)NonAf POC Glucometer 84 82 Random Glucose Calcium Phosphorus Magnesium Total Bilirubin AST ALT Alkaline Phosphatase Total Protein Albumin 05/27/19 07:43 WBC RBC Hgb Hct MCV MCH MCHC RDW Plt Count MPV Sodium 141 Potassium 3.7 Chloride 114 H Carbon Dioxide 20 L Anion Gap 7 L BUN 11.8 Creatinine 0.3 L Est GFR (CKD-EPI)AfAm 117.65 Est GFR (CKD-EPI)NonAf 101.51 POC Glucometer Random Glucose 69 L Calcium 7.2 L Phosphorus 2.3 L Magnesium 2.0 Total Bilirubin 0.4 AST 21 ALT < 6 L Alkaline Phosphatase 92 Total Protein 3.7 L Albumin 1.1 L Active Medications Generic Name Dose Route Start Last Admin Trade Name Freq PRN Reason Stop Dose Admin Acetaminophen 750 mg 05/23/19 11:32 Ofirmev Injection - IVPB Q6H PRN PAIN LEVEL 6-10 Cefazolin Sodium/Dextrose 2 gm 05/20/19 18:30 05/27/19 10:56 Ancef 2 Gm Premixed Ivpb - IVPB 2 gm Q8H-IV GLORY Administration Collagenase 1 applic 05/18/19 16:00 05/27/19 10:56 Santyl - TP 1 applic DAILY GLORY Administration Protocol Dextrose 25 gm 05/23/19 20:00 05/25/19 17:48 D50w (Vial) - IVPUSH 25 gm PRN PRN Administration HYPOGLYCEMIA Heparin Sodium (Porcine) 5,000 unit 05/18/19 14:00 05/27/19 15:43 Heparin - SQ 5,000 unit TID GLORY Administration Amino Acids 1,000 mls @ 42 mls/hr 05/25/19 14:45 05/27/19 04:21 Clinimix - IV 42 mls/hr Q24H GLORY Administration ASSESSMENT/PLAN: Ms. Rust is an 89y/o female (hospice patient prior to admission) with dementia , HTN, recurrent UTI, constipation, hypothyroidism, and malnutrition who presents with increased weakness and lethargy. Pt was admitted for severe sepsis 2/2 UTI and bacteremia. #severe sepsis 2/2 bacteremia -blood cx positive for staph aureus x 3, last set of cx prelim negative -Cefazolin 2gm Q8H (start 05/20) -echo- no vegetations noted -IV fluids for hypotension PRN -ID following -cards consulted -continue discussing goals of care- facility vs home #stage 4 decubitus ulcer, sacral and right trochanteric -cx grew multiple organisms in low numbers -Cefazolin #severe dehydration and malnutrition -continue Clinimix with KCl -dextrose PRN with BGM -swallow eval considered #hypophosphatemia -replete -monitor labs #microcytic anemia Stable -continue to monitor #hyperchloridemia, improving -continue supplementation #hypernatremia, resolved #hypokalemia, resolved #hypomagnesemia, resolved -monitor labs #oral thrush, resolved DVT Ppx heparin FEN monitor all labs Clinimix 42mL/hr with K code status DNR/DNI Visit type - Emergency Visit Emergency Visit: Yes ED Registration Date: 05/18/19 Care time: The patient presented to the Emergency Department on the above date and was hospitalized for further evaluation of their emergent condition. - New Patient This patient is new to me today: No - Critical Care Critical Care patient: No - Discharge Referral Referred to [facility] Med P.C[facility] No ATTENDING PHYSICIAN STATEMENT I saw and evaluated the patient. I reviewed the resident's note and discussed the case with the resident. I agree with the resident's findings and plan as documented. SUBJECTIVE: OBJECTIVE: ASSESSMENT AND PLAN:
[2019-05-28] MEDS: AMINO ACIDS 4.25%/D5W 1,000 ML IV SCH ×2 (00:22→14:57)
[2019-05-28] MEDS: ceFAZolin 2 GRAM PREMIX BAG IVPB SCH ×3 (01:06→17:58)
[2019-05-28] MEDS: HEPARIN NA (PORCINE) 5,000 UNITS/ML 1ML VIAL SQ SCH (06:56)
[2019-05-28] MEDS: COLLAGENASE CLOSTRIDIUM HIST. 30 GRAMS TUBE TP SCH (10:38)
[2019-05-28 10:41] LABS: BLOOD UREA NITROGEN 12.3 mg/dL (7-18); CALCIUM 7.3 mg/dL (8.5-10.1); CREATININE 0.4 mg/dL (0.55-1.3); PHOSPHOROUS 2.2 mg/dL (2.5-4.9); POTASSIUM 3.6 mmol/L (3.5-5.1)
[2019-05-28] MEDS ORDERED: POTASSIUM PHOSPHATE 20 MM in SODIUM CHLORIDE 500 ML IVPB ONE (13:50)
--- NOTE | 2019-05-28 14:05 | PN ---
Physical Exam: SUBJECTIVE: Patient seen and examined. Non-verbal. OBJECTIVE: Vital Signs Period Temp Pulse Resp BP Sys/Chinchilla Pulse Ox Last 24 Hr 97.6 F-98.0 F 65-78 18-18 103-115/46-54 100 GENERAL: Patient makes eye contact. HEAD: Normal with no signs of trauma. Tooth loss. EYES: Conjunctiva clear. ENT: Ears normal, nares patent, moist mucous membranes NECK: Trachea midline LUNGS: Clear to auscultation bilaterally, no wheezes HEART: Regular rate and rhythm, systolic murmur ABDOMEN: Soft, nontender, nondistended, normoactive bowel sounds EXTREMITIES: well-perfused, +1 pitting edema b/l feet, arms diffuse ecchymosis NEUROLOGICAL: Cannot be assessed. PSYCH: Cannot be assessed. SKIN: Warm, dry, sacral decubitus and right trochanteric ulcers clean, decreased skin turgor Laboratory Results - last 24 hr 05/27/19 05/28/19 05/28/19 18:52 06:54 08:40 Sodium 141 Potassium 3.6 Chloride 112 H Carbon Dioxide 24 Anion Gap 5 L BUN 12.3 Creatinine 0.4 L Est GFR (CKD-EPI)AfAm 107.03 Est GFR (CKD-EPI)NonAf 92.34 POC Glucometer 77 75 Random Glucose 75 Calcium 7.3 L Phosphorus 2.2 L Magnesium 2.0 05/28/19 12:16 Sodium Potassium Chloride Carbon Dioxide Anion Gap BUN Creatinine Est GFR (CKD-EPI)AfAm Est GFR (CKD-EPI)NonAf POC Glucometer 65 Random Glucose Calcium Phosphorus Magnesium Active Medications Generic Name Dose Route Start Last Admin Trade Name Freq PRN Reason Stop Dose Admin Acetaminophen 750 mg 05/23/19 11:32 Ofirmev Injection - IVPB Q6H PRN PAIN LEVEL 6-10 Cefazolin Sodium/Dextrose 2 gm 05/20/19 18:30 05/28/19 10:38 Ancef 2 Gm Premixed Ivpb - IVPB 2 gm Q8H-IV GLORY Administration Collagenase 1 applic 05/18/19 16:00 05/28/19 10:38 Santyl - TP 1 applic DAILY GLORY Administration Protocol Dextrose 25 gm 05/23/19 20:00 05/25/19 17:48 D50w (Vial) - IVPUSH 25 gm PRN PRN Administration HYPOGLYCEMIA Heparin Sodium (Porcine) 5,000 unit 05/18/19 14:00 05/28/19 06:56 Heparin - SQ 5,000 unit TID GLORY Administration Amino Acids 1,000 mls @ 42 mls/hr 05/25/19 14:45 05/28/19 00:22 Clinimix - IV 42 mls/hr Q24H GLORY Administration Potassium Phosphate 20 mm/ 506.6667 mls @ 83.3 mls/hr 05/28/19 13:50 Sodium Chloride IVPB 05/28/19 19:54 ONCE ONE ASSESSMENT/PLAN: Ms. Rust is an 89y/o female (hospice patient prior to admission) with dementia , HTN, recurrent UTI, constipation, hypothyroidism, and malnutrition who presents with increased weakness and lethargy. Pt was admitted for severe sepsis 2/2 UTI and bacteremia. #severe sepsis 2/2 staph aureus bacteremia with possible endocarditis -blood cx- last set of cx prelim negative -Cefazolin 2gm Q8H (start 05/20) -echo- no vegetations noted TTE -IV fluids for hypotension PRN -ID following -cards consulted -Son is agreeable to nursing facility for IV abx #stage 4 decubitus ulcer, sacral and right trochanteric -cx grew multiple organisms in low numbers -Cefazolin #severe dehydration and malnutrition -continue Clinimix with KCl -dextrose PRN with BGM -swallow evaluation #hypophosphatemia -replete -monitor labs #microcytic anemia Stable -continue to monitor #hyperchloridemia, improving -continue supplementation #hypernatremia, resolved #hypokalemia, resolved #hypomagnesemia, resolved -monitor labs #oral thrush, resolved DVT Ppx heparin FEN NPO until swallow eval monitor Phos Clinimix 42mL/hr code status DNR/DNI Visit type - Emergency Visit Emergency Visit: Yes ED Registration Date: 05/18/19 Care time: The patient presented to the Emergency Department on the above date and was hospitalized for further evaluation of their emergent condition. - New Patient This patient is new to me today: No - Critical Care Critical Care patient: No - Discharge Referral Referred to [facility] Med P.C.: No ATTENDING PHYSICIAN STATEMENT I saw and evaluated the patient. I reviewed the resident's note and discussed the case with the resident. I agree with the resident's findings and plan as documented. SUBJECTIVE: OBJECTIVE: ASSESSMENT AND PLAN:
--- NOTE | 2019-05-28 14:58 | PN ---
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 Asked to reevaluate. Pt is more alert, looks much stronger. ccepted tsn of applesauce and water readily, with delayed but fairly brisk swallow. Much improved. Suggest- Trial 1/2 tsp of dysphagia puree and nectar thick, on tsp as well.Magic cup. Ensure pudding. Feed slowly, palpate for swallow before next trial. Monitor tolerance. NPO if cough,congestion, fever.
--- NOTE | 2019-05-28 18:46 | PN ---
Teaching Attending Note Name of Resident: Padmaja Henderson ATTENDING PHYSICIAN STATEMENT I saw and evaluated the patient. I reviewed the resident's note and discussed the case with the resident. I agree with the resident's findings and plan as documented. SUBJECTIVE: no events over night . OBJECTIVE: MMM. opens eyes but non verbal CV: RRR Lungs: decreased breath sounds at bases abd: soft , NT. ND. NL BS Ext : pitting edema on arms and legs . no ulcers on heels Skin: stage IV decub ulcer on sacral area with no drainage . No surrounding erythema A/p 1- Severe sepsis: improved 2- MSSA bacteremia 3- Endocarditis 4- hypotension: improved 5- Stage 4 Decub ulcer 6- Severe protein calorie malnutrition . 7- Cachexia 8- hypernatremia : resolved plan : - cont clinimix - cont cefazolin day 11/24 since last + blood cx - repeat blood cx neg x 96 hr - replete mag - start ouree diet per speech recs - son decided to continue Abx till end. palliative care efforts are appreciates. Byron espitia .
[2019-05-29] MEDS: ceFAZolin 2 GRAM PREMIX BAG IVPB SCH ×3 (01:33→18:25)
[2019-05-29] MEDS: HEPARIN NA (PORCINE) 5,000 UNITS/ML 1ML VIAL SQ SCH ×2 (06:44→14:24)
--- NOTE | 2019-05-29 09:28 | PN ---
Physical Exam: SUBJECTIVE: Patient seen and examined at bedside- cannot assess ROS as patient is non-verbal OBJECTIVE: Vital Signs Period Temp Pulse Resp BP Sys/Chinchilla Pulse Ox Last 24 Hr 97.3 F-98.6 F 70-85 18-18 91-118/43-66 GENERAL: The patient is awake, alert, opens eyes; NAD. EYES:PEERLA: EOMI no scleral icterus . NECK: no JVD; no lymphadeopathy LUNGS: CTA B/L ; no rales, rhonchi or wheezing HEART: Regular rate and rhythm, S1, S2 without murmur, rub or gallop. ABDOMEN: Soft, NT/ND +BS in all 4 quadrants EXTREMITIES: 2+ pulses, warm, well-perfused, no edema. . PSYCH: Normal mood, normal affect. SKIN: Warm, dry, normal turgor, no rashes or lesions noted Laboratory Results - last 24 hr 05/28/19 05/28/19 05/28/19 08:40 12:16 17:35 Sodium 141 Potassium 3.6 Chloride 112 H Carbon Dioxide 24 Anion Gap 5 L BUN 12.3 Creatinine 0.4 L Est GFR (CKD-EPI)AfAm 107.03 Est GFR (CKD-EPI)NonAf 92.34 POC Glucometer 65 72 Random Glucose 75 Calcium 7.3 L Phosphorus 2.2 L Magnesium 2.0 05/28/19 23:02 Sodium Potassium Chloride Carbon Dioxide Anion Gap BUN Creatinine Est GFR (CKD-EPI)AfAm Est GFR (CKD-EPI)NonAf POC Glucometer 76 Random Glucose Calcium Phosphorus Magnesium Active Medications Generic Name Dose Route Start Last Admin Trade Name Freq PRN Reason Stop Dose Admin Acetaminophen 750 mg 05/23/19 11:32 Ofirmev Injection - IVPB Q6H PRN PAIN LEVEL 6-10 Cefazolin Sodium/Dextrose 2 gm 05/20/19 18:30 05/29/19 01:33 Ancef 2 Gm Premixed Ivpb - IVPB 2 gm Q8H-IV GLORY Administration Collagenase 1 applic 05/18/19 16:00 05/28/19 10:38 Santyl - TP 1 applic DAILY GLORY Administration Protocol Dextrose 25 gm 05/23/19 20:00 05/25/19 17:48 D50w (Vial) - IVPUSH 25 gm PRN PRN Administration HYPOGLYCEMIA Heparin Sodium (Porcine) 5,000 unit 05/18/19 14:00 05/29/19 06:44 Heparin - SQ 5,000 unit TID GLORY Administration Amino Acids 1,000 mls @ 42 mls/hr 05/25/19 14:45 05/28/19 14:57 Clinimix - IV 42 mls/hr Q24H GLORY Administration ASSESSMENT/PLAN: walt Rust is an 89y/o female (hospice patient prior to admission) with dementia , HTN, recurrent UTI, constipation, hypothyroidism, and malnutrition who presents with increased weakness and lethargy. Pt was admitted for severe sepsis 2/2 UTI and bacteremia. #severe sepsis 2/2 staph aureus bacteremia with possible endocarditis -blood cx- last set of cx prelim negative -Cefazolin 2gm Q8H (start 05/20) day 12/25 since last negative blood cx -echo- no vegetations noted TTE -IV fluids for hypotension PRN -ID following -Son is agreeable to nursing facility for IV abx; pending [facility] placement #stage 4 decubitus ulcer, sacral and right trochanteric -Cefazolin -collagenase #severe dehydration and malnutrition -continue Clinimix with KCl -dextrose PRN with BGM -swallow evaluation- will start pureed diet #hypophosphatemia -replete -monitor labs #microcytic anemia Stable -continue to monitor DVT Ppx heparin FEN pureed diet monitor Phos Clinimix 42mL/hr code status DNR/DNI Problem List - Problems (1) Sacral decubitus ulcer, stage IV Code(s): L89.154 - PRESSURE ULCER OF SACRAL REGION, STAGE 4 (2) Dysphagia Code(s): R13.10 - DYSPHAGIA, UNSPECIFIED (3) Failure to thrive Code(s): RQN3606 - Qualifiers: Failure to thrive age range: in adult Qualified Code(s): R62.7 - Adult failure to thrive (4) Severe sepsis Code(s): A41.9 - SEPSIS, UNSPECIFIED ORGANISM; R65.20 - SEVERE SEPSIS WITHOUT SEPTIC SHOCK Visit type - Emergency Visit Emergency Visit: Yes ED Registration Date: 05/18/19 Care time: The patient presented to the Emergency Department on the above date and was hospitalized for further evaluation of their emergent condition. - New Patient This patient is new to me today: No - Critical Care Critical Care patient: No ATTENDING PHYSICIAN STATEMENT I saw and evaluated the patient. I reviewed the resident's note and discussed the case with the resident. I agree with the resident's findings and plan as documented. SUBJECTIVE: OBJECTIVE: ASSESSMENT AND PLAN:
[2019-05-29 10:01] LABS: HEMATOCRIT 23.3 % (32.4-45.2); HEMOGLOBIN 7.5 GM/dL (10.7-15.3); MCH 24.9 pg (25.7-33.7); MCHC 32.2 g/dl (32.0-36.0); MEAN CELL VOLUME 77.1 fl (80-96); MEAN PLT VOLUME 9.3 fl (7.5-11.1); PLATELET COUNT 255 K/MM3 (134-434); RBC 3.02 M/mm3 (3.60-5.2); RDW 15.8 % (11.6-15.6); WHITE BLOOD COUNT 5.8 K/mm3 (4.0-10.0)
[2019-05-29 10:28] LABS: BLOOD UREA NITROGEN 8.9 mg/dL (7-18); CALCIUM 7.3 mg/dL (8.5-10.1); CREATININE 0.3 mg/dL (0.55-1.3); MAGNESIUM 1.8 mg/dL (1.8-2.4); PHOSPHOROUS 2.3 mg/dL (2.5-4.9); POTASSIUM 3.7 mmol/L (3.5-5.1)
[2019-05-29] MEDS ORDERED: NAPH,MB-DB/K PH,MBDB POWDER PACKET PO ONE (13:32)
--- NOTE | 2019-05-29 13:32 | PN ---
Teaching Attending Note Name of Resident: Jessika Roberts ATTENDING PHYSICIAN STATEMENT I saw and evaluated the patient. I reviewed the resident's note and discussed the case with the resident. I agree with the resident's findings and plan as documented. SUBJECTIVE: No events over night OBJECTIVE: MMM. opens eyes but non verbal CV: RRR Lungs: decreased breath sounds at bases abd: soft , NT. ND. NL BS Ext : pitting edema on arms and legs . no ulcers on heels A/p 1- Severe sepsis: improved 2- MSSA bacteremia 3- Endocarditis 4- hypotension: improved 5- Stage 4 Decub ulcer 6- Severe protein calorie malnutrition . 7- Cachexia 8- hypernatremia : resolved 9- Klebsiella UTI plan : - cont clinimix - cont cefazolin day 12/25 since last + blood cx - final results fo repeat blood cx neg - cont current diet - son decided to continue Abx till end. palliative care efforts are appreciates. [place] placement .
[2019-05-29] MEDS: AMINO ACIDS 4.25%/D5W 1,000 ML IV SCH (15:48)
[2019-05-29] MEDS: COLLAGENASE CLOSTRIDIUM HIST. 30 GRAMS TUBE TP SCH (19:11)
[2019-05-30] MEDS: HEPARIN NA (PORCINE) 5,000 UNITS/ML 1ML VIAL SQ SCH ×3 (00:23→14:11)
[2019-05-30] MEDS: ceFAZolin 2 GRAM PREMIX BAG IVPB SCH ×3 (03:38→17:47)
[2019-05-30 07:42] LABS: HEMATOCRIT 22.1 % (32.4-45.2); MCH 24.7 pg (25.7-33.7); MCHC 31.5 g/dl (32.0-36.0); MEAN CELL VOLUME 78.5 fl (80-96); MEAN PLT VOLUME 9.1 fl (7.5-11.1); PLATELET COUNT 258 K/MM3 (134-434); RBC 2.82 M/mm3 (3.60-5.2); RDW 15.8 % (11.6-15.6)
[2019-05-30 08:18] LABS: BLOOD UREA NITROGEN 8.9 mg/dL (7-18); CALCIUM 7.3 mg/dL (8.5-10.1); CREATININE 0.3 mg/dL (0.55-1.3); MAGNESIUM 1.8 mg/dL (1.8-2.4); PHOSPHOROUS 1.7 mg/dL (2.5-4.9); POTASSIUM 3.4 mmol/L (3.5-5.1)
[2019-05-30] MEDS ORDERED: POTASSIUM PHOSPHATE 15 MM in SODIUM CHLORIDE 250 ML IVPB ONE (09:00)
[2019-05-30] MEDS: COLLAGENASE CLOSTRIDIUM HIST. 30 GRAMS TUBE TP SCH (10:19)
[2019-05-30] MEDS ORDERED: PT OWN MED DRAWER 7, Y5N ONE (13:08)
[2019-05-30] MEDS: AMINO ACIDS 4.25%/D5W 1,000 ML IV SCH (14:10)
--- NOTE | 2019-05-30 17:08 | PN ---
Progress Note (short form) - Note Progress Note: Subjective: No events over night Objective: Vital Signs: Last Vital Signs Temp Pulse Resp BP Pulse Ox 99.2 F 89 18 100/53 L 100 05/30/19 15:00 05/30/19 15:00 05/30/19 15:00 05/30/19 15:00 05/29/19 23:00 Laboratory Results - last 24 hr 05/30/19 05/30/19 05/30/19 00:14 07:10 07:10 WBC 6.0 RBC 2.82 L Hgb 7.0 L Hct 22.1 L MCV 78.5 L MCH 24.7 L MCHC 31.5 L RDW 15.8 H Plt Count 258 MPV 9.1 Sodium 139 Potassium 3.4 L Chloride 109 H Carbon Dioxide 25 Anion Gap 5 L BUN 8.9 Creatinine 0.3 L Est GFR (CKD-EPI)AfAm 117.65 Est GFR (CKD-EPI)NonAf 101.51 POC Glucometer 91 Random Glucose 83 Calcium 7.3 L Phosphorus 1.7 L Magnesium 1.8 05/30/19 07:27 WBC RBC Hgb Hct MCV MCH MCHC RDW Plt Count MPV Sodium Potassium Chloride Carbon Dioxide Anion Gap BUN Creatinine Est GFR (CKD-EPI)AfAm Est GFR (CKD-EPI)NonAf POC Glucometer 91 Random Glucose Calcium Phosphorus Magnesium Physical Exam: MMM. Opens eyes but non verbal CV: RRR Lungs: decreased breath sounds at bases Abd: Soft , NT. ND. NL BS Ext: pitting edema on arms and legs. No ulcers on heels A/p 1- Severe sepsis: improved 2- MSSA bacteremia 3- Endocarditis 4- hypotension: improved 5- Stage 4 Decub ulcer 6- Severe protein calorie malnutrition . 7- Cachexia 8- hypernatremia : resolved 9- Klebsiella UTI plan : - cont clinimix. - cont cefazolin day 01/24 since last + blood cx - cont current diet - Son decided to continue Abx till end. palliative care efforts are appreciates. Byron espitia. Visit type - Emergency Visit Emergency Visit: Yes ED Registration Date: 05/18/19 Care time: The patient presented to the Emergency Department on the above date and was hospitalized for further evaluation of their emergent condition. - New Patient This patient is new to me today: No - Critical Care Critical Care patient: No
[2019-05-31] MEDS: HEPARIN NA (PORCINE) 5,000 UNITS/ML 1ML VIAL SQ SCH ×4 (00:27→23:21)
[2019-05-31] MEDS: AMINO ACIDS 4.25%/D5W 1,000 ML IV SCH ×2 (02:05→15:06)
[2019-05-31] MEDS: ceFAZolin 2 GRAM PREMIX BAG IVPB SCH ×3 (02:06→19:12)
[2019-05-31 10:00] LABS: MAGNESIUM 1.8 mg/dL (1.8-2.4); PHOSPHOROUS 1.7 mg/dL (2.5-4.9); POTASSIUM 3.3 mmol/L (3.5-5.1)
[2019-05-31] MEDS: COLLAGENASE CLOSTRIDIUM HIST. 30 GRAMS TUBE TP SCH (10:15)
--- NOTE | 2019-05-31 11:17 | PN ---
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 2 Selected Entries 05/30/19 05/30/19 05/30/19 06:00 10:42 15:00 Lunch 25% Supper Temperature 98.2 F 98 F 99.2 F 05/30/19 05/30/19 05/31/19 17:25 18:00 00:00 Lunch Supper 25% Temperature 98.1 F 98.8 F 05/31/19 05/31/19 06:00 10:19 Lunch Supper Temperature 98.4 F 97.5 F L Laboratory Tests 05/30/19 07:10 WBC 6.0 Trial 1/2 tsp of dysphagia puree and nectar thick, on tsp as well.Magic cup. Ensure pudding. Feed slowly, palpate for swallow before next trial. Monitor tolerance. NPO if cough,congestion, fever. Pt tolerating diet. Accepting 25% slowly, staff using compensatory swallowing strategies. Encourage supplements which are more dense calorically.
[2019-05-31] MEDS ORDERED: POTASSIUM CHLORIDE ORAL LIQUID 20 MEQ/15 ML PO ONE (13:47)
[2019-05-31] MEDS ORDERED: POTASSIUM PHOSPHATE 15 MM in SODIUM CHLORIDE 250 ML IVPB ONE (13:48)
--- NOTE | 2019-05-31 14:44 | PN ---
Physical Exam: SUBJECTIVE: Patient seen and examined. Pt is non-verbal. OBJECTIVE: Vital Signs Period Temp Pulse Resp BP Sys/Chinchilla Pulse Ox Last 24 Hr 97.5 F-99.2 F 79-91 18-20 92-112/51-54 100 GENERAL: Patient makes eye contact. HEAD: Normal with no signs of trauma. Tooth loss. EYES: Conjunctiva clear. ENT: Ears normal, nares patent, moist mucous membranes, tongue not erythematous , dry lips NECK: Trachea midline LUNGS: Clear to auscultation bilaterally, no wheezes HEART: Regular rate and rhythm, systolic murmur ABDOMEN: Soft, nontender, nondistended, normoactive bowel sounds EXTREMITIES: well-perfused, +1 pitting edema b/l feet, arms diffuse ecchymosis NEUROLOGICAL: Cannot be assessed. PSYCH: Cannot be assessed. SKIN: Warm, dry, sacral decubitus and right trochanteric ulcers clean, decreased skin turgor Laboratory Results - last 24 hr 05/30/19 05/31/19 05/31/19 19:46 06:48 07:55 Potassium 3.3 L POC Glucometer 91 89 Phosphorus 1.7 L Magnesium 1.8 Active Medications Generic Name Dose Route Start Last Admin Trade Name Freq PRN Reason Stop Dose Admin Acetaminophen 750 mg 05/23/19 11:32 Ofirmev Injection - IVPB Q6H PRN PAIN LEVEL 6-10 Cefazolin Sodium/Dextrose 2 gm 05/20/19 18:30 05/31/19 10:15 Ancef 2 Gm Premixed Ivpb - IVPB 2 gm Q8H-IV GLORY Administration Collagenase 1 applic 05/18/19 16:00 05/31/19 10:15 Santyl - TP 1 applic DAILY GLORY Administration Protocol Dextrose 25 gm 05/23/19 20:00 05/25/19 17:48 D50w (Vial) - IVPUSH 25 gm PRN PRN Administration HYPOGLYCEMIA Heparin Sodium (Porcine) 5,000 unit 05/18/19 14:00 05/31/19 06:50 Heparin - SQ 5,000 unit TID GLORY Administration Amino Acids 1,000 mls @ 42 mls/hr 05/25/19 14:45 05/31/19 02:05 Clinimix - IV 42 mls/hr Q24H GLORY Administration Potassium Phosphate 15 mm/ 255 mls @ 50 mls/hr 05/31/19 13:48 Sodium Chloride IVPB 05/31/19 18:53 ONCE ONE ASSESSMENT/PLAN: Ms. Rust is an 89y/o female (hospice patient prior to admission) with dementia , HTN, recurrent UTI, constipation, hypothyroidism, and malnutrition who presents with increased weakness and lethargy. Pt was admitted for severe sepsis 2/2 UTI and bacteremia. #severe sepsis 2/2 staph aureus bacteremia with probable endocarditis -last set of blood cx now negative -Cefazolin 2gm Q8H (start 05/20) -echo- no vegetations noted TTE -IV fluids for hypotension PRN -ID following -cards consulted -Son is agreeable to nursing facility for IV abx- [place], waiting approval #stage 4 decubitus ulcer, sacral and right trochanteric -cx grew multiple organisms in low numbers -Cefazolin #severe dehydration and malnutrition -continue Clinimix with KCl -dextrose PRN with BGM -dysphagia diet #hypophosphatemia -replete -monitor labs #hypokalemia -replete -monitor labs #microcytic anemia -monitor labs #hyperchloridemia, improving -continue supplementation #hypernatremia, resolved #hypomagnesemia, resolved -monitor labs #oral thrush, resolved DVT Ppx heparin FEN Clinimix 42mL/hr monitor Phos, K dysphagia puree diet as tolerated code status DNR/DNI Visit type - Emergency Visit Emergency Visit: Yes ED Registration Date: 05/18/19 Care time: The patient presented to the Emergency Department on the above date and was hospitalized for further evaluation of their emergent condition. - New Patient This patient is new to me today: No - Critical Care Critical Care patient: No - Discharge Referral Referred to [facility] Med P.C.: No ATTENDING PHYSICIAN STATEMENT I saw and evaluated the patient. I reviewed the resident's note and discussed the case with the resident. I agree with the resident's findings and plan as documented. SUBJECTIVE: OBJECTIVE: ASSESSMENT AND PLAN:
[2019-05-31] MEDS ORDERED: PT OWN MED DRAWER 7, Y5N ONE (15:03)
--- NOTE | 2019-05-31 17:39 | PN ---
Teaching Attending Note Name of Resident: Padmaja Henderson ATTENDING PHYSICIAN STATEMENT I saw and evaluated the patient. I reviewed the resident's note and discussed the case with the resident. I agree with the resident's findings and plan as documented. SUBJECTIVE: No events over night OBJECTIVE: MMM. Opens eyes but non verbal. CV: RRR Lungs: decreased breath sounds at bases Abd: Soft , NT. ND. NL BS Ext: pitting edema on arms and legs. No ulcers on heels Sacral decub ulcer with clean base . No drainage or surrounding erythema A/p 1- Severe sepsis: improved 2- MSSA bacteremia 3- Endocarditis 4- hypotension: improved 5- Stage 4 Decub ulcer 6- Severe protein calorie malnutrition . 7- Cachexia 8- hypernatremia : resolved 9- Klebsiella UTI plan : - cont clinimix. - cont cefazolin day 02/24 since last + blood cx - cont current diet - give K phos. - pending [facility] placement
--- NOTE | 2019-05-31 18:07 | PN ---
Progress Note, Physician History of Present Illness: Pt seen and examined at bedside. No great change in status. - Current Medication List Current Medications: Active Medications Acetaminophen (Ofirmev Injection -) 750 mg IVPB Q6H PRN PRN Reason: PAIN LEVEL 6-10 Cefazolin Sodium/Dextrose (Ancef 2 Gm Premixed Ivpb -) 2 gm IVPB Q8H-IV GLORY Last Admin: 05/31/19 10:15 Dose: 2 gm Collagenase (Santyl -) 1 applic TP DAILY GLORY; Protocol Last Admin: 05/31/19 10:15 Dose: 1 applic Dextrose (D50w (Vial) -) 25 gm IVPUSH PRN PRN PRN Reason: HYPOGLYCEMIA Last Admin: 05/25/19 17:48 Dose: 25 gm Heparin Sodium (Porcine) (Heparin -) 5,000 unit SQ TID GLORY Last Admin: 05/31/19 15:06 Dose: 5,000 unit Amino Acids (Clinimix -) 1,000 mls @ 42 mls/hr IV Q24H GLORY Last Admin: 05/31/19 15:06 Dose: 42 mls/hr Potassium Phosphate 15 mm/ (Sodium Chloride) 255 mls @ 50 mls/hr IVPB ONCE ONE Stop: 05/31/19 18:53 Last Admin: 05/31/19 15:05 Dose: 50 mls/hr - Objective Vital Signs: Vital Signs Temperature 98.6 F 05/31/19 14:00 Pulse Rate 84 05/31/19 14:00 Respiratory Rate 20 05/31/19 14:00 Blood Pressure 92/68 05/31/19 14:00 O2 Sat by Pulse Oximetry (%) 100 05/31/19 09:00 Constitutional: Yes: Calm Eyes: Yes: Conjunctiva Clear HENT: Yes: Atraumatic Neck: Yes: Supple Cardiovascular: Yes: S1, S2 Respiratory: Yes: CTA Bilaterally Gastrointestinal: Yes: Soft Genitourinary: Yes: Incontinence Musculoskeletal: Yes: Muscle Weakness Edema: No Neurological: Yes: Confusion Labs: CBC, BMP 05/30/19 07:10 05/31/19 07:55 Assessment/Plan Current Medications Generic Name Dose Route Start Last Admin Trade Name Freq PRN Reason Stop Dose Admin Acetaminophen 750 mg 05/23/19 11:32 Ofirmev Injection - IVPB Q6H PRN PAIN LEVEL 6-10 Cefazolin Sodium/Dextrose 2 gm 05/20/19 18:30 05/31/19 10:15 Ancef 2 Gm Premixed Ivpb - IVPB 2 gm Q8H-IV GLORY Administration Collagenase 1 applic 05/18/19 16:00 05/31/19 10:15 Santyl - TP 1 applic DAILY GLORY Administration Protocol Dextrose 25 gm 05/23/19 20:00 05/25/19 17:48 D50w (Vial) - IVPUSH 25 gm PRN PRN Administration HYPOGLYCEMIA Heparin Sodium (Porcine) 5,000 unit 05/18/19 14:00 05/31/19 15:06 Heparin - SQ 5,000 unit TID GLORY Administration Amino Acids 1,000 mls @ 42 mls/hr 05/25/19 14:45 05/31/19 15:06 Clinimix - IV 42 mls/hr Q24H GLORY Administration Potassium Phosphate 15 mm/ 255 mls @ 50 mls/hr 05/31/19 13:48 05/31/19 15:05 Sodium Chloride IVPB 05/31/19 18:53 50 mls/hr ONCE ONE Administration Impression 1. hypernatremia 2. ashtyn 3. sepsis 4. hypotension in pt with hx of hypertension 5. recurrent uti 6. dementia 7. bacteremia Plan - replace potassium and phos - check mag - will add potassium to clinimix - son is at bedside and is considering [place] - abx per medical team
[2019-05-31] MEDS: POTASSIUM CHLORIDE 20 MEQ in AMINO ACIDS 4.25%/D5W 1,000 ML IVPB SCH (22:45)
[2019-06-01] MEDS: ceFAZolin 2 GRAM PREMIX BAG IVPB SCH ×3 (02:26→19:02)
[2019-06-01] MEDS: HEPARIN NA (PORCINE) 5,000 UNITS/ML 1ML VIAL SQ SCH ×3 (05:31→21:59)
[2019-06-01 09:10] LABS: HEMATOCRIT 20.4 % (32.4-45.2); MCH 24.9 pg (25.7-33.7); MCHC 32.2 g/dl (32.0-36.0); MEAN CELL VOLUME 77.2 fl (80-96); MEAN PLT VOLUME 8.6 fl (7.5-11.1); PLATELET COUNT 314 K/MM3 (134-434); RBC 2.64 M/mm3 (3.60-5.2); RDW 15.6 % (11.6-15.6); WHITE BLOOD COUNT 6.8 K/mm3 (4.0-10.0)
[2019-06-01 09:12] LABS: HEMOGLOBIN 6.6 GM/dL (10.7-15.3)
[2019-06-01 09:35] LABS: ALBUMIN 1.2 g/dl (3.4-5.0); ALK PHOS 66 U/L (45-117); ANION GAP 7 MMOL/L (8-16); BILIRUBIN,TOTAL 0.1 mg/dL (0.2-1); BLOOD UREA NITROGEN 9.6 mg/dL (7-18); CALCIUM 7.2 mg/dL (8.5-10.1); CHLORIDE 108 mmol/L (98-107); CO2 25 mmol/L (21-32); CREATININE 0.4 mg/dL (0.55-1.3); GLUCOSE,RANDOM 79 mg/dL (74-106); MAGNESIUM 1.7 mg/dL (1.8-2.4); PHOSPHOROUS 1.8 mg/dL (2.5-4.9); POTASSIUM 3.7 mmol/L (3.5-5.1); SGOT/AST 9 U/L (15-37); SGPT/ALT < 6 U/L (13-61); SODIUM 140 mmol/L (136-145); TOT PROT 3.6 g/dl (6.4-8.2)
--- NOTE | 2019-06-01 13:35 | PN ---
Physical Exam: SUBJECTIVE: Patient seen and examined. Pt is non-verbal. OBJECTIVE: Vital Signs Period Temp Pulse Resp BP Sys/Chinchilla Pulse Ox Last 24 Hr 97.8 F-98.6 F 75-86 20-20 92-125/46-68 100-100 GENERAL: Patient makes eye contact. HEAD: Normal with no signs of trauma. Tooth loss. EYES: Conjunctiva clear. ENT: Ears normal, nares patent, moist mucous membranes NECK: Trachea midline LUNGS: Clear to auscultation bilaterally, no wheezes HEART: Regular rate and rhythm, systolic murmur ABDOMEN: Soft, nontender, nondistended, normoactive bowel sounds EXTREMITIES: well-perfused, +1 pitting edema b/l feet, arms diffuse ecchymosis NEUROLOGICAL: Cannot be assessed. PSYCH: Cannot be assessed. SKIN: Warm, dry, sacral decubitus and right trochanteric ulcers clean, decreased skin turgor Laboratory Results - last 24 hr 05/31/19 06/01/19 06/01/19 20:03 05:28 07:50 WBC 6.8 RBC 2.64 L Hgb 6.6 L* Hct 20.4 L MCV 77.2 L MCH 24.9 L MCHC 32.2 RDW 15.6 Plt Count 314 D MPV 8.6 Sodium Potassium Chloride Carbon Dioxide Anion Gap BUN Creatinine Est GFR (CKD-EPI)AfAm Est GFR (CKD-EPI)NonAf POC Glucometer 82 90 Random Glucose Calcium Phosphorus Magnesium Total Bilirubin AST ALT Alkaline Phosphatase Total Protein Albumin 06/01/19 06/01/19 07:50 12:15 WBC RBC Hgb Hct MCV MCH MCHC RDW Plt Count MPV Sodium 140 Potassium 3.7 Chloride 108 H Carbon Dioxide 25 Anion Gap 7 L BUN 9.6 Creatinine 0.4 L Est GFR (CKD-EPI)AfAm 107.03 Est GFR (CKD-EPI)NonAf 92.34 POC Glucometer 85 Random Glucose 79 Calcium 7.2 L Phosphorus 1.8 L Magnesium 1.7 L Total Bilirubin 0.1 L AST 9 L ALT < 6 L Alkaline Phosphatase 66 Total Protein 3.6 L Albumin 1.2 L Active Medications Generic Name Dose Route Start Last Admin Trade Name Freq PRN Reason Stop Dose Admin Acetaminophen 750 mg 05/23/19 11:32 Ofirmev Injection - IVPB Q6H PRN PAIN LEVEL 6-10 Cefazolin Sodium/Dextrose 2 gm 11/21/19 18:30 06/01/19 10:26 Ancef 2 Gm Premixed Ivpb - IVPB 2 gm Q8H-IV GLORY Administration Collagenase 1 applic 05/18/19 16:00 05/31/19 10:15 Santyl - TP 1 applic DAILY GLORY Administration Protocol Dextrose 25 gm 05/23/19 20:00 05/25/19 17:48 D50w (Vial) - IVPUSH 25 gm PRN PRN Administration HYPOGLYCEMIA Heparin Sodium (Porcine) 5,000 unit 05/18/19 14:00 06/01/19 05:31 Heparin - SQ 5,000 unit TID GLORY Administration Potassium Chloride 20 meq/ 1,010 mls @ 50 mls/hr 05/31/19 18:08 05/31/19 22: 45 Amino Acids IVPB 50 mls/hr Q20H GLORY Administration ASSESSMENT/PLAN: Ms. Rust is an 89y/o female (hospice patient prior to admission) with dementia , HTN, recurrent UTI, constipation, hypothyroidism, and malnutrition who presents with increased weakness and lethargy. Pt was admitted for severe sepsis 2/2 UTI and bacteremia. 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 -last set of blood cx now negative -Cefazolin 2gm Q8H (start 05/20) -echo- no vegetations noted TTE -IV fluids for hypotension PRN -ID following -cards consulted -son is agreeable to nursing facility for IV abx #stage 4 decubitus ulcer, sacral and right trochanteric -cx grew multiple organisms in low numbers -Cefazolin #severe dehydration and malnutrition -continue Clinimix with KCl -dextrose PRN with BGM -dysphagia diet -dietary recs appreciated #hypophosphatemia -on long drip currently -monitor labs #hypomagnesemia -replete -monitor labs #hyperchloridemia, improving -continue supplementation #hypokalemia, resolved #hypernatremia, resolved #oral thrush, resolved DVT Ppx heparin FEN Clinimix 42mL/hr monitor labs dysphagia puree diet as tolerated code status DNR/DNI Visit type - Emergency Visit Emergency Visit: Yes ED Registration Date: 05/18/19 Care time: The patient presented to the Emergency Department on the above date and was hospitalized for further evaluation of their emergent condition. - New Patient This patient is new to me today: No - Critical Care Critical Care patient: No - Discharge Referral Referred to [facility] Med P.C[facility] No ATTENDING PHYSICIAN STATEMENT I saw and evaluated the patient. I reviewed the resident's note and discussed the case with the resident. I agree with the resident's findings and plan as documented. SUBJECTIVE: OBJECTIVE: ASSESSMENT AND PLAN:
[2019-06-01] MEDS: POTASSIUM CHLORIDE 20 MEQ in AMINO ACIDS 4.25%/D5W 1,000 ML IVPB SCH (14:15)
--- NOTE | 2019-06-01 14:54 | PN ---
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 2 Selected Entries 05/30/19 05/30/19 05/30/19 06:00 10:42 15:00 Lunch 25% Supper Temperature 98.2 F 98 F 99.2 F 05/30/19 05/30/19 05/31/19 17:25 18:00 00:00 Lunch Supper 25% Temperature 98.1 F 98.8 F 05/31/19 05/31/19 06:00 10:19 Lunch Supper Temperature 98.4 F 97.5 F L Laboratory Tests 05/30/19 07:10 WBC 6.0 Selected Entries 05/31/19 05/31/19 05/31/19 00:00 06:00 10:19 Breakfast Lunch Supper Temperature 98.8 F 98.4 F 97.5 F L 05/31/19 05/31/19 06/01/19 14:00 18:00 00:00 Breakfast 25% Lunch 50% Supper 50% Temperature 98.6 F 97.8 F 98.2 F 06/01/19 06/01/19 06:00 11:11 Breakfast Lunch Supper Temperature 98.2 F 98.2 F Laboratory Tests 06/01/19 07:50 WBC 6.8 Trial 1/2 tsp of dysphagia puree and nectar thick, on tsp as well.Magic cup. Ensure pudding. Feed slowly, palpate for swallow before next trial. Monitor tolerance. NPO if cough,congestion, fever. Pt tolerating diet. Accepting 50% today slowly, staff using compensatory swallowing strategies. Encourage supplements which are more dense calorically.
[2019-06-01] MEDS ORDERED: MAGNESIUM SULF 50% (8.12 MEQ/2 ML-1 GM VIAL) IVPB ONE (15:23)
[2019-06-01] MEDS ORDERED: NAPH,MB-DB/K PH,MBDB POWDER PACKET PO ONE (18:36)
--- NOTE | 2019-06-01 18:38 | PN ---
Teaching Attending Note Name of Resident: Padmaja Henderson ATTENDING PHYSICIAN STATEMENT I saw and evaluated the patient. I reviewed the resident's note and discussed the case with the resident. I agree with the resident's findings and plan as documented. SUBJECTIVE: No events over night . Non verbal OBJECTIVE: MMM. Opens eyes but non verbal. CV: RRR Lungs: clear anteriorly Abd: Soft, NT. ND. NL BS Ext: pitting edema on arms and legs. A/p 1- Severe sepsis: improved 2- MSSA bacteremia 3- Endocarditis 4- hypotension: improved 5- Stage 4 Decub ulcer 6- Severe protein calorie malnutrition . 7- Cachexia 8- hypernatremia : resolved 9- Klebsiella UTI 10 hypophosphatemia and hypomagnesemia 11- Anemia : worse plan : - Appreciate dietary Recs. will decrease rate of clinimix to 42 cc/hr due to edema - cont cefazolin day 02/24 since last + blood cx - cont current diet - replete phosphorus and mag - give 1 unit of blood . repeat Hb in am . son agreed on transfusion -Yueery declined patient. Family meeting today ---> will look for NH with hospice .
[2019-06-01] MEDS: COLLAGENASE CLOSTRIDIUM HIST. 30 GRAMS TUBE TP SCH (19:25)
[2019-06-02] MEDS: ceFAZolin 2 GRAM PREMIX BAG IVPB SCH ×3 (00:02→10:28)
[2019-06-02] MEDS: AMINO ACIDS 4.25%/D5W 1,000 ML IV SCH ×2 (00:42→19:04)
[2019-06-02] MEDS: HEPARIN NA (PORCINE) 5,000 UNITS/ML 1ML VIAL SQ SCH ×3 (06:26→22:11)
[2019-06-02 08:32] LABS: BLOOD UREA NITROGEN 12.7 mg/dL (7-18); CALCIUM 7.2 mg/dL (8.5-10.1); CREATININE 0.3 mg/dL (0.55-1.3); PHOSPHOROUS 1.8 mg/dL (2.5-4.9); POTASSIUM 4.1 mmol/L (3.5-5.1)
[2019-06-02 08:43] LABS: HEMATOCRIT 24.3 % (32.4-45.2); HEMOGLOBIN 8.2 GM/dL (10.7-15.3); MCH 26.4 pg (25.7-33.7); MCHC 33.7 g/dl (32.0-36.0); MEAN CELL VOLUME 78.5 fl (80-96); MEAN PLT VOLUME 8.6 fl (7.5-11.1); PLATELET COUNT 311 K/MM3 (134-434); RDW 15.8 % (11.6-15.6); WHITE BLOOD COUNT 8.7 K/mm3 (4.0-10.0)
--- NOTE | 2019-06-02 09:23 | PN ---
Teaching Attending Note Name of Resident: Padmaja Henderson ATTENDING PHYSICIAN STATEMENT I saw and evaluated the patient. I reviewed the resident's note and discussed the case with the resident. I agree with the resident's findings and plan as documented. SUBJECTIVE: Patient is more awake today , still nonverbal. looks better. Vital Signs Temperature 98.6 F 06/02/19 06:00 Pulse Rate 74 06/02/19 06:00 Respiratory Rate 20 06/02/19 06:00 Blood Pressure 108/60 06/02/19 06:00 O2 Sat by Pulse Oximetry (%) 100 06/01/19 21:00 GENERAL: The patient is nonverbal, contracted, but comfortable HEAD: Normal with no signs of trauma. EYES: PERRL, extraocular movements intact, sclera anicteric, conjunctiva clear. ENT: Ears normal, dry mucus membrane , dry skin NECK: Trachea midline, full range of motion, supple. LUNGS: decreased Breath sounds bl , no wheezes, no crackles, no accessory muscle use. HEART: Regular rate and rhythm, S1, S2 positive, SHIMON 2/6 , no rub or gallop. ABDOMEN: Soft, NT,ND, normoactive bowel sounds, no guarding, no rebound, no hepatosplenomegaly, no masses. EXTREMITIES: 2+ pulses, warm, contracted LE NEUROLOGICAL: Cranial nerves II through XII grossly intact. gait not observed. PSYCH: non verbal , skin: Warm ,dry skin decub ulcer, stage 4, no discharge , no erythema , drainage from the right hip area CBCD WBC 8.7 K/mm3 (4.0-10.0) 06/02/19 07:05 RBC 3.10 M/mm3 (3.60-5.2) L 06/02/19 07:05 Hgb 8.2 GM/dL (10.7-15.3) L 06/02/19 07:05 Hct 24.3 % (32.4-45.2) L D 06/02/19 07:05 MCV 78.5 fl (80-96) L 06/02/19 07:05 MCHC 33.7 g/dl (32.0-36.0) 06/02/19 07:05 RDW 15.8 % (11.6-15.6) H 06/02/19 07:05 Plt Count 311 K/MM3 (134-434) 06/02/19 07:05 MPV 8.6 fl (7.5-11.1) 06/02/19 07:05 CMP Sodium 140 mmol/L (136-145) 06/02/19 07:05 Potassium 4.1 mmol/L (3.5-5.1) 06/02/19 07:05 Chloride 107 mmol/L (98-107) 06/02/19 07:05 Carbon Dioxide 28 mmol/L (21-32) 06/02/19 07:05 Anion Gap 5 MMOL/L (8-16) L 06/02/19 07:05 BUN 12.7 mg/dL (7-18) 06/02/19 07:05 Creatinine 0.3 mg/dL (0.55-1.3) L 06/02/19 07:05 Random Glucose 76 mg/dL (74-106) 06/02/19 07:05 Calcium 7.2 mg/dL (8.5-10.1) L 06/02/19 07:05 Total Bilirubin 0.1 mg/dL (0.2-1) L 06/01/19 07:50 AST 9 U/L (15-37) L 06/01/19 07:50 ALT < 6 U/L (13-61) L 06/01/19 07:50 Alkaline Phosphatase 66 U/L (45-117) 06/01/19 07:50 Total Protein 3.6 g/dl (6.4-8.2) L 06/01/19 07:50 Albumin 1.2 g/dl (3.4-5.0) L 06/01/19 07:50 Current Medications Generic Name Dose Route Start Last Admin Trade Name Rona PRN Reason Stop Dose Admin Acetaminophen 750 mg 05/23/19 11:32 Ofirmev Injection - IVPB Q6H PRN PAIN LEVEL 6-10 Cefazolin Sodium/Dextrose 2 gm 05/20/19 18:30 06/02/19 03:41 Ancef 2 Gm Premixed Ivpb - IVPB Not Given Q8H-IV GLORY Collagenase 1 applic 05/18/19 16:00 06/01/19 19:25 Santyl - TP 1 applic DAILY GLORY Administration Protocol Dextrose 25 gm 05/23/19 20:00 05/25/19 17:48 D50w (Vial) - IVPUSH 25 gm PRN PRN Administration HYPOGLYCEMIA Heparin Sodium (Porcine) 5,000 unit 05/18/19 14:00 06/02/19 06:26 Heparin - SQ 5,000 unit TID GLORY Administration Amino Acids 1,000 mls @ 42 mls/hr 06/01/19 18:45 06/02/19 00:42 Clinimix - IV 42 mls/hr Q24H GLORY Administration Home Medications Medication Instructions Recorded Levothyroxine [Synthroid -] 50 mcg PO DAILY 06/21/14 Ranitidine [Zantac -] 150 mg PO BID #30 tablet 07/16/18 Microbiology 05/24/19 11:20 Blood - Peripheral Venous Blood Culture - Final NO GROWTH AFTER 5 DAYS INCUBATION 05/24/19 10:00 Blood - Peripheral Venous Blood Culture - Final NO GROWTH AFTER 5 DAYS INCUBATION 05/21/19 07:20 Blood - Peripheral Venous Blood Culture - Final Staphylococcus Aureus 05/21/19 07:10 Blood - Peripheral Venous Blood Culture - Final Staphylococcus Aureus 05/19/19 12:05 Buttock - Right Gram Stain - Final 05/19/19 12:05 Buttock - Right Wound Culture - Final Escherichia Coli Pseudomonas Aeruginosa Staphylococcus Coagulase Neg Enterococcus Faecalis Proteus Mirabilis 05/17/19 22:32 Blood - Peripheral Venous Blood Culture - Final Staphylococcus Aureus 05/18/19 18:15 Blood - Peripheral Venous Blood Culture - Final Staphylococcus Aureus 05/18/19 18:00 Blood - Peripheral Venous Blood Culture - Final Staphylococcus Aureus 05/18/19 00:17 Urine - Urine Clean Catch Urine Culture - Final Klebsiella Pneumoniae 05/17/19 22:32 Blood - Peripheral Venous Blood Culture - Final Staphylococcus Aureus Assessment and plan: Patient is an 89 y/o with home hospice was brought in by the family member due to increased lethargy. she is supposedly on home Hospice care but family brought her here. # Acute hypernatremia : improved , nl sodium level now,continue clinimax now without KCL as per nephro, repeat cmp in am check sodium and potassium # Severe sepsis : due to MSSA bacteremia on IV ancef 2gm continue , ID on the case # MSSA bacteremia continue on IV ancef 2gm continue day 03/27 since last culture # Severe dehydration : continue IVF improving # hypotension : now normotensive , continue IVF # Stage 4 Decub ulcer and positive drainage from the right hip. on IV antibiotics # Acute hypokalemia repleted improved now, continue clinimax at 75cc/hr without 40kcl # Klebsiella UTI on IV antibiotics continue #Nutrition: clinamax Iv #hypophosphatemia and hypomagnesemia improved discussed with the son who is at bedside, [place] papers are signed, since patient' s son wants her to have IVF and IV antibioitics , no intubation [facility] declined patient. s/p Family meeting ---> placement to NH with hospice once available.
[2019-06-02] MEDS: COLLAGENASE CLOSTRIDIUM HIST. 30 GRAMS TUBE TP SCH (10:29)
--- NOTE | 2019-06-02 11:09 | PN ---
Physical Exam: SUBJECTIVE: Patient seen and examined. Pt is non-verbal. OBJECTIVE: Vital Signs Period Temp Pulse Resp BP Sys/Chinchilla Pulse Ox Last 24 Hr 98.0 F-100 F 74-90 18-20 92-123/44-69 100-100 GENERAL: Patient makes eye contact. HEAD: Normal with no signs of trauma. Tooth loss. EYES: Conjunctiva clear. ENT: Ears normal, nares patent, moist mucous membranes NECK: Trachea midline LUNGS: Clear to auscultation bilaterally, no wheezes HEART: Regular rate and rhythm, 3/6 systolic murmur ABDOMEN: Mild distention, non-tender on palpation, normoactive bowel sounds EXTREMITIES: well-perfused, +1 pitting edema b/l feet, arms diffuse ecchymosis NEUROLOGICAL: Cannot be assessed. PSYCH: Cannot be assessed. SKIN: Warm, dry, sacral decubitus and right trochanteric ulcers clean, decreased skin turgor Laboratory Results - last 24 hr 06/01/19 06/01/19 06/02/19 12:15 14:08 06:54 WBC RBC Hgb Hct MCV MCH MCHC RDW Plt Count MPV Sodium Potassium Chloride Carbon Dioxide Anion Gap BUN Creatinine Est GFR (CKD-EPI)AfAm Est GFR (CKD-EPI)NonAf POC Glucometer 85 88 Random Glucose Calcium Phosphorus Magnesium Blood Type O POSITIVE Antibody Screen Negative Crossmatch See Detail 06/02/19 06/02/19 07:05 07:05 WBC 8.7 RBC 3.10 L Hgb 8.2 L Hct 24.3 L D MCV 78.5 L MCH 26.4 MCHC 33.7 RDW 15.8 H Plt Count 311 MPV 8.6 Sodium 140 Potassium 4.1 Chloride 107 Carbon Dioxide 28 Anion Gap 5 L BUN 12.7 Creatinine 0.3 L Est GFR (CKD-EPI)AfAm 117.65 Est GFR (CKD-EPI)NonAf 101.51 POC Glucometer Random Glucose 76 Calcium 7.2 L Phosphorus 1.8 L Magnesium 2.0 Blood Type Antibody Screen Crossmatch Active Medications Generic Name Dose Route Start Last Admin Trade Name Freq PRN Reason Stop Dose Admin Acetaminophen 750 mg 05/23/19 11:32 Ofirmev Injection - IVPB Q6H PRN PAIN LEVEL 6-10 Cefazolin Sodium/Dextrose 2 gm 05/20/19 18:30 06/02/19 10:28 Ancef 2 Gm Premixed Ivpb - IVPB 2 gm Q8H-IV GLORY Administration Collagenase 1 applic 05/18/19 16:00 06/02/19 10:29 Santyl - TP 1 applic DAILY GLORY Administration Protocol Dextrose 25 gm 05/23/19 20:00 05/25/19 17:48 D50w (Vial) - IVPUSH 25 gm PRN PRN Administration HYPOGLYCEMIA Heparin Sodium (Porcine) 5,000 unit 05/18/19 14:00 06/02/19 06:26 Heparin - SQ 5,000 unit TID GLORY Administration Amino Acids 1,000 mls @ 42 mls/hr 06/01/19 18:45 06/02/19 00:42 Clinimix - IV 42 mls/hr Q24H GLORY Administration ASSESSMENT/PLAN: Ms. Rust is an 89y/o female (hospice patient prior to admission) with dementia , HTN, recurrent UTI, constipation, hypothyroidism, and malnutrition who presents with increased weakness and lethargy. Pt was admitted for severe sepsis 2/2 UTI and bacteremia. 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, improved -last set of blood cx now negative -Cefazolin 2gm Q8H (start 05/20)- will need total of 6 weeks -echo- no vegetations noted TTE -IV fluids for hypotension PRN -ID following -cards consulted #stage 4 decubitus ulcer, sacral and right trochanteric -cx grew multiple organisms in low numbers -Cefazolin #severe dehydration and malnutrition, improved -continue Clinimix with KCl -dextrose PRN with BGM -dysphagia diet -dietary following #hypophosphatemia -PO phos -monitor labs #hyperchloridemia, resolved #hypokalemia, resolved #hypernatremia, resolved #hypomagnesemia, resolved #oral thrush, resolved DVT Ppx heparin FEN Clinimix 42mL/hr monitor labs dysphagia puree diet as tolerated code status DNR/DNI dispo waiting for placement approval Visit type - Emergency Visit Emergency Visit: Yes ED Registration Date: 05/18/19 Care time: The patient presented to the Emergency Department on the above date and was hospitalized for further evaluation of their emergent condition. - New Patient This patient is new to me today: No - Critical Care Critical Care patient: No - Discharge Referral Referred to [facility] Med [facility] No ATTENDING PHYSICIAN STATEMENT I saw and evaluated the patient. I reviewed the resident's note and discussed the case with the resident. I agree with the resident's findings and plan as documented. SUBJECTIVE: OBJECTIVE: ASSESSMENT AND PLAN:
[2019-06-02] MEDS ORDERED: NAPH,MB-DB/K PH,MBDB POWDER PACKET PO ONE (11:18)
--- NOTE | 2019-06-02 13:09 | PN ---
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 Son/ staff using compensatory swallowing strategies. Encourage supplements which are more dense calorically. Followed by Palliative care -[place] vs NH
[2019-06-03] MEDS: AMINO ACIDS 4.25%/D5W 1,000 ML IV SCH ×2 (04:28→18:12)
[2019-06-03] MEDS: HEPARIN NA (PORCINE) 5,000 UNITS/ML 1ML VIAL SQ SCH ×3 (06:58→22:44)
[2019-06-03 09:30] LABS: HEMATOCRIT 24.7 % (32.4-45.2); HEMOGLOBIN 8.2 GM/dL (10.7-15.3); MCH 26.2 pg (25.7-33.7); MCHC 33.3 g/dl (32.0-36.0); MEAN CELL VOLUME 78.7 fl (80-96); MEAN PLT VOLUME 8.3 fl (7.5-11.1); PLATELET COUNT 334 K/MM3 (134-434); RBC 3.14 M/mm3 (3.60-5.2); RDW 16.3 % (11.6-15.6); WHITE BLOOD COUNT 8.1 K/mm3 (4.0-10.0)
[2019-06-03 10:06] LABS: CALCIUM 7.5 mg/dL (8.5-10.1); CREATININE 0.3 mg/dL (0.55-1.3); MAGNESIUM 1.9 mg/dL (1.8-2.4); POTASSIUM 3.8 mmol/L (3.5-5.1)
[2019-06-03] MEDS ORDERED: NAPH,MB-DB/K PH,MBDB POWDER PACKET PO ONE (10:24)
[2019-06-03] MEDS ORDERED: ceFAZolin 2 GRAM PREMIX BAG IVPB SCH (10:30)
--- NOTE | 2019-06-03 10:48 | PN ---
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 Son/ staff using compensatory swallowing strategies. Encourage supplements which are more dense calorically.
[2019-06-03] MEDS: CEFAZOLIN 2 GM/D5W 2 GM/50 ML ML IVPB SCH ×3 (11:23→18:08)
--- NOTE | 2019-06-03 16:54 | PN ---
Physical Exam: SUBJECTIVE: Patient seen and examined. Pt is non-verbal. OBJECTIVE: Vital Signs Period Temp Pulse Resp BP Sys/Chinchilla Pulse Ox Last 24 Hr 98.1 F-98.8 F 80-88 18-20 97-123/50-62 98 GENERAL: Patient makes eye contact. HEAD: Normal with no signs of trauma. Tooth loss. EYES: Conjunctiva clear. ENT: Ears normal, nares patent, moist mucous membranes NECK: Trachea midline LUNGS: Clear to auscultation bilaterally, no wheezes HEART: Regular rate and rhythm, 3/6 systolic murmur ABDOMEN: Mild distention, non-tender on palpation, normoactive bowel sounds EXTREMITIES: well-perfused, +1 pitting edema b/l feet, arms diffuse ecchymosis NEUROLOGICAL: Cannot be assessed. PSYCH: Cannot be assessed. SKIN: Warm, dry, sacral decubitus and right trochanteric ulcers clean, decreased skin turgor Laboratory Results - last 24 hr 06/02/19 06/03/19 06/03/19 19:05 06:56 08:10 WBC 8.1 RBC 3.14 L Hgb 8.2 L Hct 24.7 L MCV 78.7 L MCH 26.2 MCHC 33.3 RDW 16.3 H Plt Count 334 MPV 8.3 Sodium Potassium Chloride Carbon Dioxide Anion Gap BUN Creatinine Est GFR (CKD-EPI)AfAm Est GFR (CKD-EPI)NonAf POC Glucometer 90 85 Random Glucose Calcium Phosphorus Magnesium 06/03/19 06/03/19 08:10 11:49 WBC RBC Hgb Hct MCV MCH MCHC RDW Plt Count MPV Sodium 138 Potassium 3.8 Chloride 105 Carbon Dioxide 26 Anion Gap 7 L BUN 14.0 Creatinine 0.3 L Est GFR (CKD-EPI)AfAm 117.65 Est GFR (CKD-EPI)NonAf 101.51 POC Glucometer 89 Random Glucose 78 Calcium 7.5 L Phosphorus 2.0 L Magnesium 1.9 Active Medications Generic Name Dose Route Start Last Admin Trade Name Freq PRN Reason Stop Dose Admin Acetaminophen 750 mg 05/23/19 11:32 Ofirmev Injection - IVPB Q6H PRN PAIN LEVEL 6-10 Collagenase 1 applic 05/18/19 16:00 06/02/19 10:29 Santyl - TP 1 applic DAILY GLORY Administration Protocol Dextrose 25 gm 05/23/19 20:00 05/25/19 17:48 D50w (Vial) - IVPUSH 25 gm PRN PRN Administration HYPOGLYCEMIA Heparin Sodium (Porcine) 5,000 unit 05/18/19 14:00 06/03/19 13:47 Heparin - SQ 5,000 unit TID GLORY Administration Amino Acids 1,000 mls @ 42 mls/hr 06/01/19 18:45 06/03/19 04:28 Clinimix - IV 42 mls/hr Q24H GLORY Administration Cefazolin Sodium/Dextrose 2 gm in 50 mls @ 100 mls/hr 06/03/19 10:30 15:11 Ancef 2 Gm Premixed Ivpb - IVPB 100 mls/hr Q8H-IV GLORY Administration ASSESSMENT/PLAN: Ms. Rust is an 89y/o female (hospice patient prior to admission) with dementia , HTN, recurrent UTI, constipation, hypothyroidism, and malnutrition who presents with increased weakness and lethargy. Pt was admitted for severe sepsis 2/2 UTI and bacteremia. 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, improved -last set of blood cx now negative -Cefazolin 2gm Q8H (start 05/20)- will need total of 6 weeks -echo- no vegetations noted TTE -IV fluids for hypotension PRN -ID following -cards consulted #stage 4 decubitus ulcer, sacral and right trochanteric -cx grew multiple organisms in low numbers -Cefazolin #severe dehydration and malnutrition, improved -continue Clinimix with KCl -dextrose PRN with BGM -dysphagia diet -dietary following #hypophosphatemia -PO phos -monitor labs #microcytic anemia s/p 1 unit PRBCs, improved #hyperchloridemia, resolved #hypokalemia, resolved #hypernatremia, resolved #hypomagnesemia, resolved #oral thrush, resolved DVT Ppx heparin FEN Clinimix 42mL/hr monitor labs dysphagia puree diet as tolerated code status DNR/DNI dispo approved at [facility], possible d/c tomorrow Visit type - Emergency Visit Emergency Visit: Yes ED Registration Date: 05/18/19 Care time: The patient presented to the Emergency Department on the above date and was hospitalized for further evaluation of their emergent condition. - New Patient This patient is new to me today: No - Critical Care Critical Care patient: No - Discharge Referral Referred to [facility] No ATTENDING PHYSICIAN STATEMENT I saw and evaluated the patient. I reviewed the resident's note and discussed the case with the resident. I agree with the resident's findings and plan as documented. SUBJECTIVE: OBJECTIVE: ASSESSMENT AND PLAN:
--- NOTE | 2019-06-03 18:16 | PN ---
Teaching Attending Note Name of Resident: Padmaja Henderson ATTENDING PHYSICIAN STATEMENT I saw and evaluated the patient. I reviewed the resident's note and discussed the case with the resident. I agree with the resident's findings and plan as documented. SUBJECTIVE: Patient is more awake today , still nonverbal. looks better. Vital Signs Temperature 98.8 F 06/03/19 15:44 Pulse Rate 84 06/03/19 15:44 Respiratory Rate 18 06/03/19 15:44 Blood Pressure 106/50 L 06/03/19 15:44 O2 Sat by Pulse Oximetry (%) 98 06/02/19 21:00 GENERAL: The patient is nonverbal, contracted, but comfortable HEAD: Normal with no signs of trauma. EYES: PERRL, extraocular movements intact, sclera anicteric, conjunctiva clear. ENT: Ears normal, dry mucus membrane , dry skin NECK: Trachea midline, full range of motion, supple. LUNGS: decreased Breath sounds bl , no wheezes, no crackles, no accessory muscle use. HEART: Regular rate and rhythm, S1, S2 positive, SHIMON 2/6 , no rub or gallop. ABDOMEN: Soft, NT,ND, normoactive bowel sounds, no guarding, no rebound, no hepatosplenomegaly, no masses. EXTREMITIES: 2+ pulses, warm, contracted LE NEUROLOGICAL: Cranial nerves II through XII grossly intact. gait not observed. PSYCH: non verbal , skin: Warm ,dry skin decub ulcer, stage 4, no discharge , no erythema , drainage from the right hip area CBCD WBC 8.1 K/mm3 (4.0-10.0) 06/03/19 08:10 RBC 3.14 M/mm3 (3.60-5.2) L 06/03/19 08:10 Hgb 8.2 GM/dL (10.7-15.3) L 06/03/19 08:10 Hct 24.7 % (32.4-45.2) L 06/03/19 08:10 MCV 78.7 fl (80-96) L 06/03/19 08:10 MCHC 33.3 g/dl (32.0-36.0) 06/03/19 08:10 RDW 16.3 % (11.6-15.6) H 06/03/19 08:10 Plt Count 334 K/MM3 (134-434) 06/03/19 08:10 MPV 8.3 fl (7.5-11.1) 06/03/19 08:10 CMP Sodium 138 mmol/L (136-145) 06/03/19 08:10 Potassium 3.8 mmol/L (3.5-5.1) 06/03/19 08:10 Chloride 105 mmol/L (98-107) 06/03/19 08:10 Carbon Dioxide 26 mmol/L (21-32) 06/03/19 08:10 Anion Gap 7 MMOL/L (8-16) L 06/03/19 08:10 BUN 14.0 mg/dL (7-18) 06/03/19 08:10 Creatinine 0.3 mg/dL (0.55-1.3) L 06/03/19 08:10 Random Glucose 78 mg/dL (74-106) 06/03/19 08:10 Calcium 7.5 mg/dL (8.5-10.1) L 06/03/19 08:10 Total Bilirubin 0.1 mg/dL (0.2-1) L 06/01/19 07:50 AST 9 U/L (15-37) L 06/01/19 07:50 ALT < 6 U/L (13-61) L 06/01/19 07:50 Alkaline Phosphatase 66 U/L (45-117) 06/01/19 07:50 Total Protein 3.6 g/dl (6.4-8.2) L 06/01/19 07:50 Albumin 1.2 g/dl (3.4-5.0) L 06/01/19 07:50 Home Medications Medication Instructions Recorded Levothyroxine [Synthroid -] 50 mcg PO DAILY 06/21/14 Ranitidine [Zantac -] 150 mg PO BID #30 tablet 07/16/18 Current Medications Generic Name Dose Route Start Last Admin Trade Name Freq PRN Reason Stop Dose Admin Acetaminophen 750 mg 05/23/19 11:32 Ofirmev Injection - IVPB Q6H PRN PAIN LEVEL 6-10 Collagenase 1 applic 05/18/19 16:00 06/02/19 10:29 Santyl - TP 1 applic DAILY GLORY Administration Protocol Dextrose 25 gm 05/23/19 20:00 05/25/19 17:48 D50w (Vial) - IVPUSH 25 gm PRN PRN Administration HYPOGLYCEMIA Heparin Sodium (Porcine) 5,000 unit 05/18/19 14:00 06/03/19 13:47 Heparin - SQ 5,000 unit TID GLORY Administration Amino Acids 1,000 mls @ 42 mls/hr 06/01/19 18:45 06/03/19 18:12 Clinimix - IV Not Given Q24H GLORY Cefazolin Sodium/Dextrose 2 gm in 50 mls @ 100 mls/hr 06/03/19 10:30 18:08 Ancef 2 Gm Premixed Ivpb - IVPB Not Given Q8H-IV GLORY Microbiology 05/24/19 11:20 Blood - Peripheral Venous Blood Culture - Final NO GROWTH AFTER 5 DAYS INCUBATION 05/24/19 10:00 Blood - Peripheral Venous Blood Culture - Final NO GROWTH AFTER 5 DAYS INCUBATION 05/21/19 07:20 Blood - Peripheral Venous Blood Culture - Final Staphylococcus Aureus 05/21/19 07:10 Blood - Peripheral Venous Blood Culture - Final Staphylococcus Aureus 05/19/19 12:05 Buttock - Right Gram Stain - Final 05/19/19 12:05 Buttock - Right Wound Culture - Final Escherichia Coli Pseudomonas Aeruginosa Staphylococcus Coagulase Neg Enterococcus Faecalis Proteus Mirabilis 05/17/19 22:32 Blood - Peripheral Venous Blood Culture - Final Staphylococcus Aureus 05/18/19 18:15 Blood - Peripheral Venous Blood Culture - Final Staphylococcus Aureus 05/18/19 18:00 Blood - Peripheral Venous Blood Culture - Final Staphylococcus Aureus 05/18/19 00:17 Urine - Urine Clean Catch Urine Culture - Final Klebsiella Pneumoniae 05/17/19 22:32 Blood - Peripheral Venous Blood Culture - Final Staphylococcus Aureus Assessment and plan: Patient is an 89 y/o with home hospice was brought in by the family member due to increased lethargy. she is supposedly on home Hospice care but family brought her here. # Acute hypernatremia : improved , nl sodium s/p clinimax repeat cmp in am # Severe sepsis : due to MSSA bacteremia on IV ancef 2gm continue , ID on the case # MSSA bacteremia continue on IV ancef 2gm continue day 04/26 since last culture # Severe dehydration : improved post IV clinimax # hypotension : now normotensive ,s/p IVF # Stage 4 Decub ulcer and positive drainage from the right hip. on IV antibiotics continue # Acute hypokalemia repleted , back to normal now # Klebsiella UTI on IV antibiotics continue #Nutrition: patient is eating now #hypophosphatemia and hypomagnesemia s/p repletion improved discussed with the son who is at bedside, Molt papers are signed, since patient' s son wants her to have IV antibioitics , no intubation Maritza declined patient. s/p Family meeting ---> placement to [facility] with hospice once available.
[2019-06-03] MEDS: COLLAGENASE CLOSTRIDIUM HIST. 30 GRAMS TUBE TP SCH (19:21)
[2019-06-04] MEDS: CEFAZOLIN 2 GM/D5W 2 GM/50 ML ML IVPB SCH ×4 (01:05→19:41)
[2019-06-04] MEDS: HEPARIN NA (PORCINE) 5,000 UNITS/ML 1ML VIAL SQ SCH (06:07)
[2019-06-04] MEDS: AMINO ACIDS 4.25%/D5W 1,000 ML IV SCH ×2 (09:23→23:05)
[2019-06-04] MEDS ORDERED: POTASSIUM PHOSPHATE 30 MM in DEXTROSE 5%-WATER - 500 ML IVPB ONE (10:15)
--- NOTE | 2019-06-04 10:38 | PN ---
Teaching Attending Note Name of Resident: Padmaja Henderson ATTENDING PHYSICIAN STATEMENT I saw and evaluated the patient. I reviewed the resident's note and discussed the case with the resident. I agree with the resident's findings and plan as documented. SUBJECTIVE: Patient's son at bedside, feeding the patient who ate 100% of her meals. Vital Signs Temperature 98.2 F 06/04/19 06:49 Pulse Rate 78 06/04/19 09:38 Respiratory Rate 20 06/04/19 09:38 Blood Pressure 125/50 L 06/04/19 09:38 O2 Sat by Pulse Oximetry (%) 98 06/03/19 21:00 GENERAL: The patient is nonverbal, contracted, but comfortable HEAD: Normal with no signs of trauma. EYES: PERRL, extraocular movements intact, sclera anicteric, conjunctiva clear. ENT: Ears normal, dry mucus membrane , dry skin NECK: Trachea midline, full range of motion, supple. LUNGS: decreased Breath sounds bl , no wheezes, no crackles, no accessory muscle use. HEART: Regular rate and rhythm, S1, S2 positive, SHIMON 2/6 , no rub or gallop. ABDOMEN: Soft, NT,ND, normoactive bowel sounds, no guarding, no rebound, no hepatosplenomegaly, no masses. EXTREMITIES: 2+ pulses, warm, contracted LE NEUROLOGICAL: Cranial nerves II through XII grossly intact. gait not observed. PSYCH: non verbal , skin: Warm ,dry skin decub ulcer, stage 4, no discharge , no erythema , drainage from the right hip area CBCD WBC 8.1 K/mm3 (4.0-10.0) 06/03/19 08:10 RBC 3.14 M/mm3 (3.60-5.2) L 06/03/19 08:10 Hgb 8.2 GM/dL (10.7-15.3) L 06/03/19 08:10 Hct 24.7 % (32.4-45.2) L 06/03/19 08:10 MCV 78.7 fl (80-96) L 06/03/19 08:10 MCHC 33.3 g/dl (32.0-36.0) 06/03/19 08:10 RDW 16.3 % (11.6-15.6) H 06/03/19 08:10 Plt Count 334 K/MM3 (134-434) 06/03/19 08:10 MPV 8.3 fl (7.5-11.1) 06/03/19 08:10 CMP Sodium 138 mmol/L (136-145) 06/03/19 08:10 Potassium 3.8 mmol/L (3.5-5.1) 06/03/19 08:10 Chloride 105 mmol/L (98-107) 06/03/19 08:10 Carbon Dioxide 26 mmol/L (21-32) 06/03/19 08:10 Anion Gap 7 MMOL/L (8-16) L 06/03/19 08:10 BUN 14.0 mg/dL (7-18) 06/03/19 08:10 Creatinine 0.3 mg/dL (0.55-1.3) L 06/03/19 08:10 Random Glucose 78 mg/dL (74-106) 06/03/19 08:10 Calcium 7.5 mg/dL (8.5-10.1) L 06/03/19 08:10 Total Bilirubin 0.1 mg/dL (0.2-1) L 06/01/19 07:50 AST 9 U/L (15-37) L 06/01/19 07:50 ALT < 6 U/L (13-61) L 06/01/19 07:50 Alkaline Phosphatase 66 U/L (45-117) 06/01/19 07:50 Total Protein 3.6 g/dl (6.4-8.2) L 06/01/19 07:50 Albumin 1.2 g/dl (3.4-5.0) L 06/01/19 07:50 Current Medications Generic Name Dose Route Start Last Admin Trade Name Freq PRN Reason Stop Dose Admin Acetaminophen 750 mg 05/23/19 11:32 Ofirmev Injection - IVPB Q6H PRN PAIN LEVEL 6-10 Collagenase 1 applic 05/18/19 16:00 06/03/19 19:21 Santyl - TP 1 applic DAILY GLORY Administration Protocol Dextrose 25 gm 05/23/19 20:00 05/25/19 17:48 D50w (Vial) - IVPUSH 25 gm PRN PRN Administration HYPOGLYCEMIA Cefazolin Sodium/Dextrose 2 gm in 50 mls @ 100 mls/hr 06/03/19 10:30 10:14 Ancef 2 Gm Premixed Ivpb - IVPB Not Given Q8H-IV GLORY Amino Acids 1,000 mls @ 42 mls/hr 06/04/19 09:23 Clinimix - IV Q24H GLORY Potassium Phosphate 30 mm/ 510 mls @ 63.75 mls/hr 06/04/19 10:15 Dextrose IVPB 06/04/19 18:14 ONCE ONE Home Medications Medication Instructions Recorded Levothyroxine [Synthroid -] 50 mcg PO DAILY 06/21/14 Ranitidine [Zantac -] 150 mg PO BID #30 tablet 07/16/18 Microbiology 05/24/19 11:20 Blood - Peripheral Venous Blood Culture - Final NO GROWTH AFTER 5 DAYS INCUBATION 05/24/19 10:00 Blood - Peripheral Venous Blood Culture - Final NO GROWTH AFTER 5 DAYS INCUBATION 05/21/19 07:20 Blood - Peripheral Venous Blood Culture - Final Staphylococcus Aureus 05/21/19 07:10 Blood - Peripheral Venous Blood Culture - Final Staphylococcus Aureus 05/19/19 12:05 Buttock - Right Gram Stain - Final 05/19/19 12:05 Buttock - Right Wound Culture - Final Escherichia Coli Pseudomonas Aeruginosa Staphylococcus Coagulase Neg Enterococcus Faecalis Proteus Mirabilis 05/17/19 22:32 Blood - Peripheral Venous Blood Culture - Final Staphylococcus Aureus 05/18/19 18:15 Blood - Peripheral Venous Blood Culture - Final Staphylococcus Aureus 05/18/19 18:00 Blood - Peripheral Venous Blood Culture - Final Staphylococcus Aureus 05/18/19 00:17 Urine - Urine Clean Catch Urine Culture - Final Klebsiella Pneumoniae 05/17/19 22:32 Blood - Peripheral Venous Blood Culture - Final Staphylococcus Aureus Assessment and plan: Patient is an 89 y/o with home hospice was brought in by the family member due to increased lethargy. she is supposedly on home Hospice care but family brought her here. Assessment and plan: Patient is an 89 y/o with home hospice was brought in by the family member due to increased lethargy. she is supposedly on home Hospice care but family brought her here. # Acute hypernatremia : improved , nl sodium s/p clinimax repeat cmp in am # Severe sepsis : due to MSSA bacteremia on IV ancef 2gm continue , ID on the case # MSSA bacteremia continue on IV ancef 2gm continue day 05/27 since last culture # Severe dehydration : improved post IV clinimax # hypotension : now normotensive ,s/p IVF # Stage 4 Decub ulcer and positive drainage from the right hip. on IV antibiotics continue # Acute hypokalemia repleted , back to normal now # Klebsiella UTI on IV antibiotics continue #Nutrition: patient is eating now #hypophosphatemia and hypomagnesemia s/p repletion improved discussed with the son who is at bedside, Molt papers are signed, since patient' s son wants her to have IV antibioitics , no intubation Maritza declined patient. s/p Family meeting ---> placement to [facility] with hospice once available. waiting for authorization to rehab
--- NOTE | 2019-06-04 10:59 | PN ---
Progress Note, FIELD TECHNICAL SUPPORT CONSULTANT - Note Progress Note: Selected Entries 06/02/19 06/02/19 06/02/19 01:48 06:00 10:00 Breakfast 50% Supper Temperature 99.1 F 98.6 F 06/02/19 06/02/19 06/02/19 10:54 16:00 18:20 Breakfast Supper 75% Temperature 98.1 F 97.9 F 98.4 F 06/02/19 06/03/19 06/03/19 22:00 00:00 06:00 Breakfast Supper Temperature 98.1 F 98.2 F 98.2 F Laboratory Tests 06/03/19 08:10 WBC 8.1 Selected Entries 06/03/19 06/03/19 06/03/19 00:00 06:00 10:00 Breakfast 25% Supper Temperature 98.2 F 98.2 F 97.7 F 06/03/19 06/03/19 06/03/19 15:44 18:00 21:14 Breakfast Supper 75% Temperature 98.8 F 98.2 F 98.5 F 06/04/19 06:49 Breakfast Supper Temperature 98.2 F Laboratory Tests 06/03/19 08:10 WBC 8.1 PICC line insertion today. Pt tolerating dysphagia pureed diet with nectar thick liquids. Son/ staff using compensatory swallowing strategies. Pending transfer to [place]. Monitor PO tolerance, nutrition, hydration Encourage supplements which are more dense calorically, b/n meals as well as sips of nectar thick liquid throughout the day to maintain hydration. At PA, consider use of PICC for additional hydration as indicated if medically appropriate
[2019-06-04] MEDS: COLLAGENASE CLOSTRIDIUM HIST. 30 GRAMS TUBE TP SCH (15:50)
[2019-06-05] MEDS: CEFAZOLIN 2 GM/D5W 2 GM/50 ML ML IVPB SCH ×3 (03:10→17:02)
[2019-06-05] MEDS ORDERED: PT OWN MED DRAWER 7, Y5N ONE (09:18)
[2019-06-05] MEDS: AMINO ACIDS 4.25%/D5W 1,000 ML IV SCH ×2 (09:22→23:15)
[2019-06-05] MEDS: COLLAGENASE CLOSTRIDIUM HIST. 30 GRAMS TUBE TP SCH (12:29)
--- NOTE | 2019-06-05 19:07 | PN ---
Progress Note (short form) - Note Progress Note: Patient is comfortable with no acute distress, sitting on the bed, son at bedside feeding the mother who completed 100% of the food. Vital Signs Temperature 98.9 F 06/05/19 14:00 Pulse Rate 85 06/05/19 14:00 Respiratory Rate 18 06/05/19 14:00 Blood Pressure 111/59 L 06/05/19 14:00 O2 Sat by Pulse Oximetry (%) 100 06/05/19 09:00 GENERAL: The patient is nonverbal, contracted, but comfortable HEAD: Normal with no signs of trauma. EYES: PERRL, extraocular movements intact, sclera anicteric, conjunctiva clear. ENT: Ears normal, dry mucus membrane , dry skin NECK: Trachea midline, full range of motion, supple. LUNGS: decreased Breath sounds bl , no wheezes, no crackles, no accessory muscle use. HEART: Regular rate and rhythm, S1, S2 positive, SHIMON 2/6 , no rub or gallop. ABDOMEN: Soft, NT,ND, normoactive bowel sounds, no guarding, no rebound, no hepatosplenomegaly, no masses. EXTREMITIES: 2+ pulses, warm, contracted LE NEUROLOGICAL: Cranial nerves II through XII grossly intact. gait not observed. PSYCH: non verbal , skin: Warm ,dry skin decub ulcer, stage 4, no discharge , no erythema , drainage from the right hip area CBCD WBC 8.1 K/mm3 (4.0-10.0) 06/03/19 08:10 RBC 3.14 M/mm3 (3.60-5.2) L 06/03/19 08:10 Hgb 8.2 GM/dL (10.7-15.3) L 06/03/19 08:10 Hct 24.7 % (32.4-45.2) L 06/03/19 08:10 MCV 78.7 fl (80-96) L 06/03/19 08:10 MCHC 33.3 g/dl (32.0-36.0) 06/03/19 08:10 RDW 16.3 % (11.6-15.6) H 06/03/19 08:10 Plt Count 334 K/MM3 (134-434) 06/03/19 08:10 MPV 8.3 fl (7.5-11.1) 06/03/19 08:10 CMP Sodium 138 mmol/L (136-145) 06/03/19 08:10 Potassium 3.8 mmol/L (3.5-5.1) 06/03/19 08:10 Chloride 105 mmol/L (98-107) 06/03/19 08:10 Carbon Dioxide 26 mmol/L (21-32) 06/03/19 08:10 Anion Gap 7 MMOL/L (8-16) L 06/03/19 08:10 BUN 14.0 mg/dL (7-18) 06/03/19 08:10 Creatinine 0.3 mg/dL (0.55-1.3) L 06/03/19 08:10 Random Glucose 78 mg/dL (74-106) 06/03/19 08:10 Calcium 7.5 mg/dL (8.5-10.1) L 06/03/19 08:10 Total Bilirubin 0.1 mg/dL (0.2-1) L 06/01/19 07:50 AST 9 U/L (15-37) L 06/01/19 07:50 ALT < 6 U/L (13-61) L 06/01/19 07:50 Alkaline Phosphatase 66 U/L (45-117) 06/01/19 07:50 Total Protein 3.6 g/dl (6.4-8.2) L 06/01/19 07:50 Albumin 1.2 g/dl (3.4-5.0) L 06/01/19 07:50 Current Medications Generic Name Dose Route Start Last Admin Trade Name Freq PRN Reason Stop Dose Admin Acetaminophen 750 mg 05/23/19 11:32 Ofirmev Injection - IVPB Q6H PRN PAIN LEVEL 6-10 Collagenase 1 applic 05/18/19 16:00 06/05/19 12:29 Santyl - TP 1 applic DAILY GLORY Administration Protocol Dextrose 25 gm 05/23/19 20:00 05/25/19 17:48 D50w (Vial) - IVPUSH 25 gm PRN PRN Administration HYPOGLYCEMIA Cefazolin Sodium/Dextrose 2 gm in 50 mls @ 100 mls/hr 06/03/19 10:30 02:47 Ancef 2 Gm Premixed Ivpb - IVPB 100 mls/hr Q8H-IV GLORY Administration Amino Acids 1,000 mls @ 42 mls/hr 06/04/19 09:23 06/05/19 23:15 Clinimix - IV 42 mls/hr Q24H GLORY Administration Home Medications Medication Instructions Recorded Levothyroxine [Synthroid -] 50 mcg PO DAILY 06/21/14 Ranitidine [Zantac -] 150 mg PO BID #30 tablet 07/16/18 Cefazolin 2 gm/D5w [Ancef 2 gm 2 gm IVPB Q8H 16 Days ml 06/04/19 Premixed Ivpb -] Collagenase Clostridium Hist. 1 applic TP DAILY tube 06/04/19 [Santyl -] Microbiology 05/24/19 11:20 Blood - Peripheral Venous Blood Culture - Final NO GROWTH AFTER 5 DAYS INCUBATION 05/24/19 10:00 Blood - Peripheral Venous Blood Culture - Final NO GROWTH AFTER 5 DAYS INCUBATION 05/21/19 07:20 Blood - Peripheral Venous Blood Culture - Final Staphylococcus Aureus 05/21/19 07:10 Blood - Peripheral Venous Blood Culture - Final Staphylococcus Aureus 05/19/19 12:05 Buttock - Right Gram Stain - Final 05/19/19 12:05 Buttock - Right Wound Culture - Final Escherichia Coli Pseudomonas Aeruginosa Staphylococcus Coagulase Neg Enterococcus Faecalis Proteus Mirabilis 05/17/19 22:32 Blood - Peripheral Venous Blood Culture - Final Staphylococcus Aureus 05/18/19 18:15 Blood - Peripheral Venous Blood Culture - Final Staphylococcus Aureus 05/18/19 18:00 Blood - Peripheral Venous Blood Culture - Final Staphylococcus Aureus 05/18/19 00:17 Urine - Urine Clean Catch Urine Culture - Final Klebsiella Pneumoniae 05/17/19 22:32 Blood - Peripheral Venous Blood Culture - Final Staphylococcus Aureus Assessment and plan: Patient is an 89 y/o with home hospice was brought in by the family member due to increased lethargy. she is supposedly on home Hospice care but family brought her here. # Acute hypernatremia : resolved now. s/p Clinimax # Severe sepsis : due to MSSA bacteremia on IV ancef 2gm continue , ID on the case # MSSA bacteremia continue on IV ancef 2gm continue day 04/26 since last culture , no growth so far. # Severe dehydration : improved , s/p CLinimax # hypotension : now normotensive. # Stage 4 Decub ulcer and positive drainage from the right hip. on IV antibiotics # Acute hypokalemia repleted improved now, s/p clinimax # Klebsiella UTI on IV antibiotics continue #Nutrition: s/p clinamax , now completing her meals 100%c #hypophosphatemia and hypomagnesemia improved discussed with the son who is at bedside, Niki papers are signed. Maritza declined patient. s/p Family meeting ---> placement to [place] with hospice once available. Visit type - Emergency Visit Emergency Visit: Yes ED Registration Date: 05/18/19 Care time: The patient presented to the Emergency Department on the above date and was hospitalized for further evaluation of their emergent condition. - New Patient This patient is new to me today: No - Critical Care Critical Care patient: No - Discharge Referral Referred to [facility] No
[2019-06-06] MEDS: CEFAZOLIN 2 GM/D5W 2 GM/50 ML ML IVPB SCH ×3 (02:47→18:23)
--- NOTE | 2019-06-06 07:26 | PN ---
Physical Exam: SUBJECTIVE: Patient seen and examined at bedside- no acute events overnight; OBJECTIVE: Vital Signs Period Temp Pulse Resp BP Sys/Chinchilla Pulse Ox Last 24 Hr 97.9 F-100.3 F 82-93 18-18 98-123/48-76 96-100 GENERAL: The patient is awake, alert; NAD EYES: PEERLA: EOMI; no scleral icterus NECK:no JVD; no lymphadenopathy LUNGS: CTA B.L no rales, rhonchi or wheezing HEART: Regular rate and rhythm, S1, S2 without murmur, rub or gallop. ABDOMEN: Soft, nontender, nondistended, normoactive bowel sounds, no guarding, no rebound, no hepatosplenomegaly, no masses. EXTREMITIES: 2+ pulses, warm, well-perfused, edema at b/l forefoot. SKIN: Warm, dry, normal turgor, no rashes or lesions noted Laboratory Results - last 24 hr 06/05/19 06/05/19 10:55 23:06 POC Glucometer 115 87 Active Medications Generic Name Dose Route Start Last Admin Trade Name Rona PRN Reason Stop Dose Admin Acetaminophen 750 mg 05/23/19 11:32 Ofirmev Injection - IVPB Q6H PRN PAIN LEVEL 6-10 Collagenase 1 applic 05/18/19 16:00 06/05/19 12:29 Santyl - TP 1 applic DAILY GLORY Administration Protocol Dextrose 25 gm 05/23/19 20:00 05/25/19 17:48 D50w (Vial) - IVPUSH 25 gm PRN PRN Administration HYPOGLYCEMIA Cefazolin Sodium/Dextrose 2 gm in 50 mls @ 100 mls/hr 06/03/19 10:30 02:47 Ancef 2 Gm Premixed Ivpb - IVPB 100 mls/hr Q8H-IV GLORY Administration Amino Acids 1,000 mls @ 42 mls/hr 06/04/19 09:23 06/05/19 23:15 Clinimix - IV 42 mls/hr Q24H GLORY Administration ASSESSMENT/PLAN: Ms. Rust is an 89y/o female (hospice patient prior to admission) with dementia , HTN, recurrent UTI, constipation, hypothyroidism, and malnutrition who presents with increased weakness and lethargy. Pt was admitted for severe sepsis 2/2 UTI and bacteremia. 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, improved -Cefazolin 2gm Q8H (start 05/20)- #stage 4 decubitus ulcer, sacral and right trochanteric -cx grew multiple organisms in low numbers -Cefazolin #severe dehydration and malnutrition, improved -dysphagia diet -dietary following #microcytic anemia s/p 1 unit PRBCs, improved #oral thrush, resolved DVT Ppx heparin FEN monitor labs dysphagia puree diet as tolerated code status DNR/DNI dispo approved at Problem List - Problems (1) Sacral decubitus ulcer, stage IV Code(s): L89.154 - PRESSURE ULCER OF SACRAL REGION, STAGE 4 (2) Dysphagia Code(s): R13.10 - DYSPHAGIA, UNSPECIFIED (3) Failure to thrive Code(s): ELT0631 - Qualifiers: Failure to thrive age range: in adult Qualified Code(s): R62.7 - Adult failure to thrive (4) Severe sepsis Code(s): A41.9 - SEPSIS, UNSPECIFIED ORGANISM; R65.20 - SEVERE SEPSIS WITHOUT SEPTIC SHOCK Visit type - Emergency Visit Emergency Visit: Yes ED Registration Date: 05/18/19 Care time: The patient presented to the Emergency Department on the above date and was hospitalized for further evaluation of their emergent condition. - New Patient This patient is new to me today: No - Critical Care Critical Care patient: No ATTENDING PHYSICIAN STATEMENT I saw and evaluated the patient. I reviewed the resident's note and discussed the case with the resident. I agree with the resident's findings and plan as documented. SUBJECTIVE: OBJECTIVE: ASSESSMENT AND PLAN:
[2019-06-06] MEDS: COLLAGENASE CLOSTRIDIUM HIST. 30 GRAMS TUBE TP SCH (09:00)
--- NOTE | 2019-06-06 19:37 | PN ---
Teaching Attending Note Name of Resident: Jessika Roberts ATTENDING PHYSICIAN STATEMENT I saw and evaluated the patient. I reviewed the resident's note and discussed the case with the resident. I agree with the resident's findings and plan as documented. SUBJECTIVE: Patient is comfortable with no acute distress. Vital Signs Temperature 98.5 F 06/06/19 12:00 Pulse Rate 85 06/06/19 12:00 Respiratory Rate 18 06/06/19 12:00 Blood Pressure 102/52 L 06/06/19 12:00 O2 Sat by Pulse Oximetry (%) 96 06/06/19 09:00 GENERAL: The patient is nonverbal, contracted, but comfortable HEAD: Normal with no signs of trauma. EYES: PERRL, extraocular movements intact, sclera anicteric, conjunctiva clear. ENT: Ears normal, dry mucus membrane , dry skin NECK: Trachea midline, full range of motion, supple. LUNGS: decreased Breath sounds bl , no wheezes, no crackles, no accessory muscle use. HEART: Regular rate and rhythm, S1, S2 positive, SHIMON 2/6 , no rub or gallop. ABDOMEN: Soft, NT,ND, normoactive bowel sounds, no guarding, no rebound, no hepatosplenomegaly, no masses. EXTREMITIES: 2+ pulses, warm, contracted LE , + edema 2+ NEUROLOGICAL: Cranial nerves II through XII grossly intact. gait not observed. PSYCH: non verbal , skin: Warm ,dry skin decub ulcer, stage 4, no discharge , no erythema , drainage from the right hip area CBCD WBC 8.1 K/mm3 (4.0-10.0) 06/03/19 08:10 RBC 3.14 M/mm3 (3.60-5.2) L 06/03/19 08:10 Hgb 8.2 GM/dL (10.7-15.3) L 06/03/19 08:10 Hct 24.7 % (32.4-45.2) L 06/03/19 08:10 MCV 78.7 fl (80-96) L 06/03/19 08:10 MCHC 33.3 g/dl (32.0-36.0) 06/03/19 08:10 RDW 16.3 % (11.6-15.6) H 06/03/19 08:10 Plt Count 334 K/MM3 (134-434) 06/03/19 08:10 MPV 8.3 fl (7.5-11.1) 06/03/19 08:10 CMP Sodium 138 mmol/L (136-145) 06/03/19 08:10 Potassium 3.8 mmol/L (3.5-5.1) 06/03/19 08:10 Chloride 105 mmol/L (98-107) 06/03/19 08:10 Carbon Dioxide 26 mmol/L (21-32) 06/03/19 08:10 Anion Gap 7 MMOL/L (8-16) L 06/03/19 08:10 BUN 14.0 mg/dL (7-18) 06/03/19 08:10 Creatinine 0.3 mg/dL (0.55-1.3) L 06/03/19 08:10 Random Glucose 78 mg/dL (74-106) 06/03/19 08:10 Calcium 7.5 mg/dL (8.5-10.1) L 06/03/19 08:10 Total Bilirubin 0.1 mg/dL (0.2-1) L 06/01/19 07:50 AST 9 U/L (15-37) L 06/01/19 07:50 ALT < 6 U/L (13-61) L 06/01/19 07:50 Alkaline Phosphatase 66 U/L (45-117) 06/01/19 07:50 Total Protein 3.6 g/dl (6.4-8.2) L 06/01/19 07:50 Albumin 1.2 g/dl (3.4-5.0) L 06/01/19 07:50 Home Medications Medication Instructions Recorded Levothyroxine [Synthroid -] 50 mcg PO DAILY 06/21/14 Ranitidine [Zantac -] 150 mg PO BID #30 tablet 07/16/18 Cefazolin 2 gm/D5w [Ancef 2 gm 2 gm IVPB Q8H 16 Days ml 06/04/19 Premixed Ivpb -] Collagenase Clostridium Hist. 1 applic TP DAILY tube 06/04/19 [Santyl -] Current Medications Generic Name Dose Route Start Last Admin Trade Name Freq PRN Reason Stop Dose Admin Acetaminophen 750 mg 05/23/19 11:32 Ofirmev Injection - IVPB Q6H PRN PAIN LEVEL 6-10 Collagenase 1 applic 05/18/19 16:00 06/06/19 09:00 Santyl - TP 1 applic DAILY GLORY Administration Protocol Cefazolin Sodium/Dextrose 2 gm in 50 mls @ 100 mls/hr 06/03/19 10:30 18:23 Ancef 2 Gm Premixed Ivpb - IVPB 100 mls/hr Q8H-IV GLORY Administration Microbiology 05/24/19 11:20 Blood - Peripheral Venous Blood Culture - Final NO GROWTH AFTER 5 DAYS INCUBATION 05/24/19 10:00 Blood - Peripheral Venous Blood Culture - Final NO GROWTH AFTER 5 DAYS INCUBATION 05/21/19 07:20 Blood - Peripheral Venous Blood Culture - Final Staphylococcus Aureus 05/21/19 07:10 Blood - Peripheral Venous Blood Culture - Final Staphylococcus Aureus 05/19/19 12:05 Buttock - Right Gram Stain - Final 05/19/19 12:05 Buttock - Right Wound Culture - Final Escherichia Coli Pseudomonas Aeruginosa Staphylococcus Coagulase Neg Enterococcus Faecalis Proteus Mirabilis 05/17/19 22:32 Blood - Peripheral Venous Blood Culture - Final Staphylococcus Aureus 05/18/19 18:15 Blood - Peripheral Venous Blood Culture - Final Staphylococcus Aureus 05/18/19 18:00 Blood - Peripheral Venous Blood Culture - Final Staphylococcus Aureus 05/18/19 00:17 Urine - Urine Clean Catch Urine Culture - Final Klebsiella Pneumoniae 05/17/19 22:32 Blood - Peripheral Venous Blood Culture - Final Staphylococcus Aureus Assessment and plan: Patient is an 89 y/o with home hospice was brought in by the family member due to increased lethargy. she is supposedly on home Hospice care but family brought her here. # Acute hypernatremia : resolved now. s/p Clinimax # Severe sepsis : due to MSSA bacteremia on IV ancef 2gm continue , ID on the case # MSSA bacteremia continue on IV ancef 2gm continue day since last culture , no growth so far. # Severe dehydration : improved , s/p CLinimax # hypotension : now normotensive. # Stage 4 Decub ulcer and positive drainage from the right hip. on IV antibiotics # Acute hypokalemia repleted improved now, s/p clinimax # Klebsiella UTI on IV antibiotics continue #Nutrition: s/p clinamax , now completing her meals 100%c #hypophosphatemia and hypomagnesemia improved discussed with the son who is at bedside, [facility] papers are signed. [facility] declined patient. s/p Family meeting ---> placement to [place] with hospice once available. waiting for authorization for rehab
[2019-06-07] MEDS: CEFAZOLIN 2 GM/D5W 2 GM/50 ML ML IVPB SCH ×3 (02:00→17:15)
[2019-06-07 08:08] LABS: BASO % 1.2 % (0-2.0); EOS % 0.9 % (0-4.5); HEMATOCRIT 23.1 % (32.4-45.2); HEMOGLOBIN 7.4 GM/dL (10.7-15.3); LYMPH % 14.4 % (8-40); MCH 25.7 pg (25.7-33.7); MCHC 31.9 g/dl (32.0-36.0); MEAN CELL VOLUME 80.4 fl (80-96); MEAN PLT VOLUME 8.3 fl (7.5-11.1); MONO % 7.4 % (3.8-10.2); NEUT % 76.1 % (42.8-82.8); PLATELET COUNT 261 K/MM3 (134-434); RBC 2.87 M/mm3 (3.60-5.2); RDW 17.2 % (11.6-15.6); WHITE BLOOD COUNT 7.4 K/mm3 (4.0-10.0)
[2019-06-07 08:37] LABS: ALBUMIN 1.3 g/dl (3.4-5.0); ALK PHOS 64 U/L (45-117); ANION GAP 5 MMOL/L (8-16); BILIRUBIN,TOTAL 0.1 mg/dL (0.2-1); CALCIUM 7.5 mg/dL (8.5-10.1); CHLORIDE 105 mmol/L (98-107); CO2 29 mmol/L (21-32); CREATININE 0.4 mg/dL (0.55-1.3); GLUCOSE,RANDOM 70 mg/dL (74-106); MAGNESIUM 1.8 mg/dL (1.8-2.4); PHOSPHOROUS 2.2 mg/dL (2.5-4.9); POTASSIUM 3.8 mmol/L (3.5-5.1); SGOT/AST 12 U/L (15-37); SGPT/ALT < 6 U/L (13-61); SODIUM 138 mmol/L (136-145); TOT PROT 3.8 g/dl (6.4-8.2)
--- NOTE | 2019-06-07 15:02 | PN ---
Teaching Attending Note Name of Resident: Padmaja Henderson ATTENDING PHYSICIAN STATEMENT I saw and evaluated the patient. I reviewed the resident's note and discussed the case with the resident. I agree with the resident's findings and plan as documented. SUBJECTIVE: Patient is comfortable with no acute distress, no shortness of breath. Vital Signs Temperature 97.7 F 06/07/19 06:01 Pulse Rate 83 06/07/19 06:01 Respiratory Rate 20 06/07/19 06:01 Blood Pressure 93/60 06/07/19 06:01 O2 Sat by Pulse Oximetry (%) 96 06/06/19 21:00 GENERAL: The patient is nonverbal, contracted, but comfortable, cachectic HEAD: Normal with no signs of trauma. EYES: PERRL, EOMI, sclera anicteric, conjunctiva clear. ENT: Ears normal, dry mucus membrane , dry skin NECK: Trachea midline, full range of motion, supple. LUNGS: decreased Breath sounds bl , no wheezes, no crackles, no accessory muscle use. HEART: Regular rate and rhythm, S1, S2 positive, SHIMON 2/6 , no rub or gallop. ABDOMEN: Soft, NT,ND, normoactive bowel sounds, no guarding, no rebound, no hepatosplenomegaly, no masses. EXTREMITIES: 2+ pulses, warm, contracted LE , + edema 2+ NEUROLOGICAL: Cranial nerves II through XII grossly intact. gait not observed. PSYCH: non verbal , skin: Warm ,dry skin decub ulcer, stage 4, no discharge , no erythema , drainage from the right hip area CBCD WBC 7.4 K/mm3 (4.0-10.0) 06/07/19 07:14 RBC 2.87 M/mm3 (3.60-5.2) L 06/07/19 07:14 Hgb 7.4 GM/dL (10.7-15.3) L 06/07/19 07:14 Hct 23.1 % (32.4-45.2) L 06/07/19 07:14 MCV 80.4 fl (80-96) 06/07/19 07:14 MCHC 31.9 g/dl (32.0-36.0) L 06/07/19 07:14 RDW 17.2 % (11.6-15.6) H 06/07/19 07:14 Plt Count 261 K/MM3 (134-434) D 06/07/19 07:14 MPV 8.3 fl (7.5-11.1) 06/07/19 07:14 CMP Sodium 138 mmol/L (136-145) 06/07/19 07:14 Potassium 3.8 mmol/L (3.5-5.1) 06/07/19 07:14 Chloride 105 mmol/L (98-107) 06/07/19 07:14 Carbon Dioxide 29 mmol/L (21-32) 06/07/19 07:14 Anion Gap 5 MMOL/L (8-16) L 06/07/19 07:14 BUN 19.0 mg/dL (7-18) H 06/07/19 07:14 Creatinine 0.4 mg/dL (0.55-1.3) L 06/07/19 07:14 Random Glucose 70 mg/dL (74-106) L 06/07/19 07:14 Calcium 7.5 mg/dL (8.5-10.1) L 06/07/19 07:14 Total Bilirubin 0.1 mg/dL (0.2-1) L 06/07/19 07:14 AST 12 U/L (15-37) L 06/07/19 07:14 ALT < 6 U/L (13-61) L 06/07/19 07:14 Alkaline Phosphatase 64 U/L (45-117) 06/07/19 07:14 Total Protein 3.8 g/dl (6.4-8.2) L 06/07/19 07:14 Albumin 1.3 g/dl (3.4-5.0) L 06/07/19 07:14 Home Medications Medication Instructions Recorded Levothyroxine [Synthroid -] 50 mcg PO DAILY 06/21/14 Ranitidine [Zantac -] 150 mg PO BID #30 tablet 07/16/18 Cefazolin 2 gm/D5w [Ancef 2 gm 2 gm IVPB Q8H 16 Days ml 06/04/19 Premixed Ivpb -] Collagenase Clostridium Hist. 1 applic TP DAILY tube 06/04/19 [Santyl -] Home Medications Medication Instructions Recorded Levothyroxine [Synthroid -] 50 mcg PO DAILY 06/21/14 Ranitidine [Zantac -] 150 mg PO BID #30 tablet 07/16/18 Cefazolin 2 gm/D5w [Ancef 2 gm 2 gm IVPB Q8H 16 Days ml 06/04/19 Premixed Ivpb -] Collagenase Clostridium Hist. 1 applic TP DAILY tube 06/04/19 [Santyl -] Microbiology 05/24/19 11:20 Blood - Peripheral Venous Blood Culture - Final NO GROWTH AFTER 5 DAYS INCUBATION 05/24/19 10:00 Blood - Peripheral Venous Blood Culture - Final NO GROWTH AFTER 5 DAYS INCUBATION 05/21/19 07:20 Blood - Peripheral Venous Blood Culture - Final Staphylococcus Aureus 05/21/19 07:10 Blood - Peripheral Venous Blood Culture - Final Staphylococcus Aureus 05/19/19 12:05 Buttock - Right Gram Stain - Final 05/19/19 12:05 Buttock - Right Wound Culture - Final Escherichia Coli Pseudomonas Aeruginosa Staphylococcus Coagulase Neg Enterococcus Faecalis Proteus Mirabilis 05/17/19 22:32 Blood - Peripheral Venous Blood Culture - Final Staphylococcus Aureus 05/18/19 18:15 Blood - Peripheral Venous Blood Culture - Final Staphylococcus Aureus 05/18/19 18:00 Blood - Peripheral Venous Blood Culture - Final Staphylococcus Aureus 05/18/19 00:17 Urine - Urine Clean Catch Urine Culture - Final Klebsiella Pneumoniae 05/17/19 22:32 Blood - Peripheral Venous Blood Culture - Final Staphylococcus Aureus Assessment and plan: Patient is an 89 y/o with home hospice was brought in by the family member due to increased lethargy. she is supposedly on home Hospice care but family brought her here. # MSSA bacteremia continue on IV ancef 2gm continue day 14 since last culture , no growth so far. # Severe sepsis : due to MSSA bacteremia on IV ancef 2gm continue , ID on the case # Acute hypernatremia : resolved now. s/p Clinimax # Severe dehydration : improved , s/p CLinimax # hypotension : now normotensive. # Stage 4 Decub ulcer and positive drainage from the right hip. on IV antibiotics # Acute hypokalemia repleted , s/p clinimax with KCL # Klebsiella UTI on IV antibiotics continue #Nutrition: s/p clinamax , now completing her meals 100%, nutrition consult appreciated #hypophosphatemia and hypomagnesemia improved [facility] papers are signed in the chart. [facility] declined patient. s/p Family meeting ---> placement to [place] waiting for authorization for rehab
--- NOTE | 2019-06-07 16:58 | PN ---
Physical Exam: SUBJECTIVE: Patient seen and examined. Pt is non-verbal. OBJECTIVE: Vital Signs Period Temp Pulse Resp BP Sys/Chinchilla Pulse Ox Last 24 Hr 97.7 F-99.6 F 82-96 20-20 87-126/53-68 96-100 GENERAL: Patient makes eye contact. HEAD: Normal with no signs of trauma. Tooth loss. EYES: Conjunctiva clear. ENT: Ears normal, nares patent, moist mucous membranes NECK: Trachea midline LUNGS: Clear to auscultation bilaterally, no wheezes HEART: Regular rate and rhythm, 3/6 systolic murmur ABDOMEN: Mild distention, non-tender on palpation, normoactive bowel sounds EXTREMITIES: well-perfused, +1 pitting edema b/l feet, arms diffuse ecchymosis NEUROLOGICAL: Cannot be assessed. PSYCH: Cannot be assessed. SKIN: Warm, dry, sacral decubitus and right trochanteric ulcers clean, decreased skin turgor Laboratory Results - last 24 hr 06/06/19 06/06/19 06/07/19 18:19 23:25 07:14 WBC RBC Hgb Hct MCV MCH MCHC RDW Plt Count MPV Absolute Neuts (auto) Neutrophils % Lymphocytes % Monocytes % Eosinophils % Basophils % Nucleated RBC % Sodium 138 Potassium 3.8 Chloride 105 Carbon Dioxide 29 Anion Gap 5 L BUN 19.0 H Creatinine 0.4 L Est GFR (CKD-EPI)AfAm 107.03 Est GFR (CKD-EPI)NonAf 92.34 POC Glucometer 104 78 Random Glucose 70 L Calcium 7.5 L Phosphorus 2.2 L Magnesium 1.8 Total Bilirubin 0.1 L AST 12 L ALT < 6 L Alkaline Phosphatase 64 Total Protein 3.8 L Albumin 1.3 L 06/07/19 07:14 WBC 7.4 RBC 2.87 L Hgb 7.4 L Hct 23.1 L MCV 80.4 MCH 25.7 MCHC 31.9 L RDW 17.2 H Plt Count 261 D MPV 8.3 Absolute Neuts (auto) 5.7 Neutrophils % 76.1 Lymphocytes % 14.4 D Monocytes % 7.4 D Eosinophils % 0.9 D Basophils % 1.2 D Nucleated RBC % 0 Sodium Potassium Chloride Carbon Dioxide Anion Gap BUN Creatinine Est GFR (CKD-EPI)AfAm Est GFR (CKD-EPI)NonAf POC Glucometer Random Glucose Calcium Phosphorus Magnesium Total Bilirubin AST ALT Alkaline Phosphatase Total Protein Albumin Active Medications Generic Name Dose Route Start Last Admin Trade Name Rona PRN Reason Stop Dose Admin Acetaminophen 750 mg 05/23/19 11:32 Ofirmev Injection - IVPB Q6H PRN PAIN LEVEL 6-10 Collagenase 1 applic 05/18/19 16:00 06/06/19 09:00 Santyl - TP 1 applic DAILY GLORY Administration Protocol Cefazolin Sodium/Dextrose 2 gm in 50 mls @ 100 mls/hr 06/03/19 10:30 09:57 Ancef 2 Gm Premixed Ivpb - IVPB 100 mls/hr Q8H-IV GLORY Administration Potassium Phos/Sodium Phos 1 packet 06/08/19 13:30 Phos-Nak Packet - PO 06/08/19 13:31 ONCE ONE ASSESSMENT/PLAN: Ms. Rust is an 89y/o female (hospice patient prior to admission) with dementia , HTN, recurrent UTI, constipation, hypothyroidism, and malnutrition who presents with increased weakness and lethargy. Pt was admitted for severe sepsis 2/2 UTI and bacteremia. 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, improved -last set of blood cx now negative -Cefazolin 2gm Q8H (start 05/20)- will need total of 6 weeks -echo- no vegetations noted TTE -IV fluids for hypotension PRN -ID following -cards consulted #stage 4 decubitus ulcer, sacral and right trochanteric -cx grew multiple organisms in low numbers -Cefazolin #severe dehydration and malnutrition, improved -continue Clinimix with KCl -dextrose PRN with BGM -dysphagia diet -dietary following #hypophosphatemia -PO phos -monitor labs #microcytic anemia s/p 1 unit PRBCs, improved #hyperchloridemia, resolved #hypokalemia, resolved #hypernatremia, resolved #hypomagnesemia, resolved #oral thrush, resolved DVT Ppx heparin FEN PO fluids monitor labs dysphagia puree diet as tolerated code status DNR/DNI dispo waiting on placement Visit type - Emergency Visit Emergency Visit: Yes ED Registration Date: 05/18/19 Care time: The patient presented to the Emergency Department on the above date and was hospitalized for further evaluation of their emergent condition. - New Patient This patient is new to me today: No - Critical Care Critical Care patient: No - Discharge Referral Referred to [facility] Med [facility].C[facility] No ATTENDING PHYSICIAN STATEMENT I saw and evaluated the patient. I reviewed the resident's note and discussed the case with the resident. I agree with the resident's findings and plan as documented. SUBJECTIVE: OBJECTIVE: ASSESSMENT AND PLAN:
[2019-06-07] MEDS ORDERED: PT OWN MED DRAWER 7, Y5N ONE (18:54)
[2019-06-07] MEDS: COLLAGENASE CLOSTRIDIUM HIST. 30 GRAMS TUBE TP SCH (19:20)
[2019-06-08] MEDS: CEFAZOLIN 2 GM/D5W 2 GM/50 ML ML IVPB SCH ×3 (01:36→17:42)
[2019-06-08] MEDS ORDERED: DEXTROSE 50%-WATER - 25 GM/50 ML VIAL IVPUSH ONE (06:19)
[2019-06-08] MEDS ORDERED: DEXTROSE 50%-WATER 25 GM/50 ML DISP.SYRIN ONE (06:23)
[2019-06-08 08:39] LABS: HEMATOCRIT 22.5 % (32.4-45.2); HEMOGLOBIN 7.3 GM/dL (10.7-15.3); LYMPH % 14.1 % (8-40); MCH 25.9 pg (25.7-33.7); MCHC 32.4 g/dl (32.0-36.0); MEAN CELL VOLUME 80.1 fl (80-96); MEAN PLT VOLUME 8.3 fl (7.5-11.1); MONO % 7.1 % (3.8-10.2); NEUT % 76.8 % (42.8-82.8); PLATELET COUNT 261 K/MM3 (134-434); RBC 2.81 M/mm3 (3.60-5.2); RDW 17.1 % (11.6-15.6); WHITE BLOOD COUNT 7.9 K/mm3 (4.0-10.0)
[2019-06-08 09:02] LABS: ALBUMIN 1.3 g/dl (3.4-5.0); ALK PHOS 65 U/L (45-117); ANION GAP 5 MMOL/L (8-16); BILIRUBIN,TOTAL 0.1 mg/dL (0.2-1); BLOOD UREA NITROGEN 16.9 mg/dL (7-18); CALCIUM 7.3 mg/dL (8.5-10.1); CHLORIDE 105 mmol/L (98-107); CO2 30 mmol/L (21-32); CREATININE 0.4 mg/dL (0.55-1.3); GLUCOSE,RANDOM 65 mg/dL (74-106); MAGNESIUM 1.9 mg/dL (1.8-2.4); PHOSPHOROUS 2.2 mg/dL (2.5-4.9); POTASSIUM 3.9 mmol/L (3.5-5.1); SGOT/AST 10 U/L (15-37); SGPT/ALT < 6 U/L (13-61); SODIUM 139 mmol/L (136-145); TOT PROT 3.7 g/dl (6.4-8.2)
[2019-06-08] MEDS: COLLAGENASE CLOSTRIDIUM HIST. 30 GRAMS TUBE TP SCH (10:44)
--- NOTE | 2019-06-08 13:04 | PN ---
Teaching Attending Note Name of Resident: Padmaja Henderson ATTENDING PHYSICIAN STATEMENT I saw and evaluated the patient. I reviewed the resident's note and discussed the case with the resident. I agree with the resident's findings and plan as documented. SUBJECTIVE: Patient is comfortable with no acute distress, no shortness of breath. Vital Signs Temperature 98.7 F 06/08/19 06:00 Pulse Rate 73 06/08/19 06:00 Respiratory Rate 18 06/08/19 06:00 Blood Pressure 101/51 L 06/08/19 06:00 O2 Sat by Pulse Oximetry (%) 98 06/07/19 21:00 GENERAL: The patient is nonverbal, contracted, but comfortable, cachectic HEAD: Normal with no signs of trauma. EYES: PERRL, EOMI, sclera anicteric, conjunctiva clear. ENT: Ears normal, dry mucus membrane , dry skin NECK: Trachea midline, full range of motion, supple. LUNGS: decreased Breath sounds bl , no wheezes, no crackles, no accessory muscle use. HEART: Regular rate and rhythm, S1, S2 positive, SHIMON 2/6 , no rub or gallop. ABDOMEN: Soft, NT,ND, normoactive bowel sounds, no guarding, no rebound, no hepatosplenomegaly, no masses. EXTREMITIES: 2+ pulses, warm, contracted LE , + edema 2+ NEUROLOGICAL: Cranial nerves II through XII grossly intact. gait not observed. PSYCH: non verbal , skin: Warm ,dry skin decub ulcer, stage 4, no discharge , no erythema , drainage from the right hip area CBCD WBC 7.9 K/mm3 (4.0-10.0) 06/08/19 06:15 RBC 2.81 M/mm3 (3.60-5.2) L 06/08/19 06:15 Hgb 7.3 GM/dL (10.7-15.3) L 06/08/19 06:15 Hct 22.5 % (32.4-45.2) L 06/08/19 06:15 MCV 80.1 fl (80-96) 06/08/19 06:15 MCHC 32.4 g/dl (32.0-36.0) 06/08/19 06:15 RDW 17.1 % (11.6-15.6) H 06/08/19 06:15 Plt Count 261 K/MM3 (134-434) 06/08/19 06:15 MPV 8.3 fl (7.5-11.1) 06/08/19 06:15 CMP Sodium 139 mmol/L (136-145) 06/08/19 06:15 Potassium 3.9 mmol/L (3.5-5.1) 06/08/19 06:15 Chloride 105 mmol/L (98-107) 06/08/19 06:15 Carbon Dioxide 30 mmol/L (21-32) 06/08/19 06:15 Anion Gap 5 MMOL/L (8-16) L 06/08/19 06:15 BUN 16.9 mg/dL (7-18) 06/08/19 06:15 Creatinine 0.4 mg/dL (0.55-1.3) L 06/08/19 06:15 Random Glucose 65 mg/dL (74-106) L 06/08/19 06:15 Calcium 7.3 mg/dL (8.5-10.1) L 06/08/19 06:15 Total Bilirubin 0.1 mg/dL (0.2-1) L 06/08/19 06:15 AST 10 U/L (15-37) L 06/08/19 06:15 ALT < 6 U/L (13-61) L 06/08/19 06:15 Alkaline Phosphatase 65 U/L (45-117) 06/08/19 06:15 Total Protein 3.7 g/dl (6.4-8.2) L 06/08/19 06:15 Albumin 1.3 g/dl (3.4-5.0) L 06/08/19 06:15 Current Medications Generic Name Dose Route Start Last Admin Trade Name Freq PRN Reason Stop Dose Admin Acetaminophen 750 mg 05/23/19 11:32 Ofirmev Injection - IVPB Q6H PRN PAIN LEVEL 6-10 Collagenase 1 applic 05/18/19 16:00 06/08/19 10:44 Santyl - TP 1 applic DAILY GLORY Administration Protocol Cefazolin Sodium/Dextrose 2 gm in 50 mls @ 100 mls/hr 06/03/19 10:30 10:45 Ancef 2 Gm Premixed Ivpb - IVPB 100 mls/hr Q8H-IV GLORY Administration Potassium Phos/Sodium Phos 1 packet 12/10/19 13:30 Phos-Nak Packet - PO 06/08/19 13:31 ONCE ONE Home Medications Medication Instructions Recorded Levothyroxine [Synthroid -] 50 mcg PO DAILY 06/21/14 Ranitidine [Zantac -] 150 mg PO BID #30 tablet 07/16/18 Cefazolin 2 gm/D5w [Ancef 2 gm 2 gm IVPB Q8H 16 Days ml 06/04/19 Premixed Ivpb -] Collagenase Clostridium Hist. 1 applic TP DAILY tube 06/04/19 [Santyl -] Microbiology 05/24/19 11:20 Blood - Peripheral Venous Blood Culture - Final NO GROWTH AFTER 5 DAYS INCUBATION 05/24/19 10:00 Blood - Peripheral Venous Blood Culture - Final NO GROWTH AFTER 5 DAYS INCUBATION 05/21/19 07:20 Blood - Peripheral Venous Blood Culture - Final Staphylococcus Aureus 05/21/19 07:10 Blood - Peripheral Venous Blood Culture - Final Staphylococcus Aureus 05/19/19 12:05 Buttock - Right Gram Stain - Final 05/19/19 12:05 Buttock - Right Wound Culture - Final Escherichia Coli Pseudomonas Aeruginosa Staphylococcus Coagulase Neg Enterococcus Faecalis Proteus Mirabilis 05/17/19 22:32 Blood - Peripheral Venous Blood Culture - Final Staphylococcus Aureus 05/18/19 18:15 Blood - Peripheral Venous Blood Culture - Final Staphylococcus Aureus 05/18/19 18:00 Blood - Peripheral Venous Blood Culture - Final Staphylococcus Aureus 05/18/19 00:17 Urine - Urine Clean Catch Urine Culture - Final Klebsiella Pneumoniae 05/17/19 22:32 Blood - Peripheral Venous Blood Culture - Final Staphylococcus Aureus Assessment and plan: Patient is an 89 y/o with home hospice was brought in by the family member due to increased lethargy. she is supposedly on home Hospice care but family brought her here. # MSSA bacteremia continue on IV ancef 2gm continue day since last culture , no growth so far. # Severe sepsis : due to MSSA bacteremia on IV ancef 2gm continue , ID on the case # Acute hypernatremia : resolved now. s/p Clinimax # Severe dehydration : improved , s/p CLinimax # hypotension : now normotensive. # Stage 4 Decub ulcer and positive drainage from the right hip. on IV antibiotics # Acute hypokalemia repleted , s/p clinimax with KCL # Klebsiella UTI on IV antibiotics continue #Nutrition: s/p clinamax , now completing her meals 100%, nutrition consult appreciated #hypophosphatemia and hypomagnesemia improved [facility] papers are signed in the chart. Maritza declined patient. s/p Family meeting ---> placement to [place] waiting for authorization for rehab
--- NOTE | 2019-06-08 13:05 | PN ---
Progress Note, VIDEO SURVEILLANCE TECHNICIAN - Note Progress Note: Pt tolerating dysphagia pureed diet with nectar thick liquids. Selected Entries 06/07/19 06/07/19 06/07/19 06:01 14:00 15:00 Lunch 75% Supper Temperature 97.7 F 97.9 F 06/07/19 06/07/19 06/08/19 17:30 18:00 06:00 Lunch Supper 50% Temperature 98.5 F 98.7 F Laboratory Tests 06/08/19 06:15 WBC 7.9
[2019-06-08] MEDS ORDERED: NAPH,MB-DB/K PH,MBDB POWDER PACKET PO ONE (13:30)
--- NOTE | 2019-06-08 13:48 | PN ---
Physical Exam: SUBJECTIVE: Patient seen and examined. Pt is non-verbal. OBJECTIVE: Vital Signs Period Temp Pulse Resp BP Sys/Chinchilla Pulse Ox Last 24 Hr 97.9 F-98.7 F 73-86 18-20 87-101/51-56 98 GENERAL: Patient makes eye contact. HEAD: Normal with no signs of trauma. Tooth loss. EYES: Conjunctiva clear. ENT: Ears normal, nares patent, moist mucous membranes NECK: Trachea midline LUNGS: Clear to auscultation bilaterally, no wheezes HEART: Regular rate and rhythm, 3/6 systolic murmur ABDOMEN: Mild distention, non-tender on palpation, normoactive bowel sounds EXTREMITIES: well-perfused, +1 pitting edema b/l feet, arms diffuse ecchymosis NEUROLOGICAL: Cannot be assessed. PSYCH: Cannot be assessed. SKIN: Warm, dry, sacral decubitus and right trochanteric ulcers clean, decreased skin turgor Laboratory Results - last 24 hr 06/07/19 06/08/19 06/08/19 16:52 06:10 06:15 WBC 7.9 RBC 2.81 L Hgb 7.3 L Hct 22.5 L MCV 80.1 MCH 25.9 MCHC 32.4 RDW 17.1 H Plt Count 261 MPV 8.3 Absolute Neuts (auto) 6.1 Neutrophils % 76.8 Lymphocytes % 14.1 Monocytes % 7.1 Eosinophils % 1.0 Basophils % 1.0 Nucleated RBC % 0 Sodium Potassium Chloride Carbon Dioxide Anion Gap BUN Creatinine Est GFR (CKD-EPI)AfAm Est GFR (CKD-EPI)NonAf POC Glucometer 98 58 Random Glucose Calcium Phosphorus Magnesium Total Bilirubin AST ALT Alkaline Phosphatase Total Protein Albumin 06/08/19 06:15 WBC RBC Hgb Hct MCV MCH MCHC RDW Plt Count MPV Absolute Neuts (auto) Neutrophils % Lymphocytes % Monocytes % Eosinophils % Basophils % Nucleated RBC % Sodium 139 Potassium 3.9 Chloride 105 Carbon Dioxide 30 Anion Gap 5 L BUN 16.9 Creatinine 0.4 L Est GFR (CKD-EPI)AfAm 107.03 Est GFR (CKD-EPI)NonAf 92.34 POC Glucometer Random Glucose 65 L Calcium 7.3 L Phosphorus 2.2 L Magnesium 1.9 Total Bilirubin 0.1 L AST 10 L ALT < 6 L Alkaline Phosphatase 65 Total Protein 3.7 L Albumin 1.3 L Active Medications Generic Name Dose Route Start Last Admin Trade Name Rona PRN Reason Stop Dose Admin Acetaminophen 750 mg 05/23/19 11:32 Ofirmev Injection - IVPB Q6H PRN PAIN LEVEL 6-10 Collagenase 1 applic 05/18/19 16:00 06/08/19 10:44 Santyl - TP 1 applic DAILY GLORY Administration Protocol Cefazolin Sodium/Dextrose 2 gm in 50 mls @ 100 mls/hr 06/03/19 10:30 10:45 Ancef 2 Gm Premixed Ivpb - IVPB 100 mls/hr Q8H-IV GLORY Administration ASSESSMENT/PLAN: Ms. Rust is an 89y/o female (hospice patient prior to admission) with dementia , HTN, recurrent UTI, constipation, hypothyroidism, and malnutrition who presents with increased weakness and lethargy. Pt was admitted for severe sepsis 2/2 UTI and bacteremia. 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, improved -last set of blood cx now negative -Cefazolin 2gm Q8H (start 05/20)- will need total of 6 weeks -echo- no vegetations noted TTE -IV fluids for hypotension PRN -ID following #stage 4 decubitus ulcer, sacral and right trochanteric -cx grew multiple organisms in low numbers -Cefazolin #severe dehydration and malnutrition, improved -dextrose PRN with BGM -dysphagia diet -dietary following #hypophosphatemia -PO phos #microcytic anemia s/p 1 unit PRBCs, improved #hyperchloridemia, resolved #hypokalemia, resolved #hypernatremia, resolved #hypomagnesemia, resolved #oral thrush, resolved DVT Ppx heparin FEN PO fluids dysphagia puree diet as tolerated code status DNR/DNI dispo waiting on placement Visit type - Emergency Visit Emergency Visit: Yes ED Registration Date: 05/18/19 Care time: The patient presented to the Emergency Department on the above date and was hospitalized for further evaluation of their emergent condition. - New Patient This patient is new to me today: No - Critical Care Critical Care patient: No - Discharge Referral Referred to [facility] Med P.C.: No ATTENDING PHYSICIAN STATEMENT I saw and evaluated the patient. I reviewed the resident's note and discussed the case with the resident. I agree with the resident's findings and plan as documented. SUBJECTIVE: OBJECTIVE: ASSESSMENT AND PLAN:
[2019-06-09] MEDS: CEFAZOLIN 2 GM/D5W 2 GM/50 ML ML IVPB SCH ×3 (02:37→21:03)
[2019-06-09] MEDS ORDERED: DEXTROSE 50%-WATER - 25 GM/50 ML VIAL IVPUSH ONE (06:10)
[2019-06-09] MEDS ORDERED: DEXTROSE 50%-WATER 25 GM/50 ML DISP.SYRIN ONE (06:31)
[2019-06-09 09:31] LABS: BLOOD UREA NITROGEN 16.8 mg/dL (7-18); CALCIUM 7.7 mg/dL (8.5-10.1); CREATININE 0.4 mg/dL (0.55-1.3)
[2019-06-09] MEDS: COLLAGENASE CLOSTRIDIUM HIST. 30 GRAMS TUBE TP SCH (10:22)
--- NOTE | 2019-06-09 16:56 | PN ---
Physical Exam: SUBJECTIVE: Patient seen and examined. Pt is non-verbal. OBJECTIVE: Vital Signs Period Temp Pulse Resp BP Sys/Chinchilla Pulse Ox Last 24 Hr 97.6 F-98.7 F 73-80 18-68 87-95/45-59 98 GENERAL: Patient makes eye contact. HEAD: Normal with no signs of trauma. Tooth loss. EYES: Conjunctiva clear. ENT: Ears normal, nares patent, moist mucous membranes NECK: Trachea midline LUNGS: Clear to auscultation bilaterally, no wheezes HEART: Regular rate and rhythm, 3/6 systolic murmur ABDOMEN: Mild distention, non-tender on palpation, normoactive bowel sounds EXTREMITIES: well-perfused, +1 pitting edema b/l feet, arms diffuse ecchymosis NEUROLOGICAL: Cannot be assessed. PSYCH: Cannot be assessed. SKIN: Warm, dry, sacral decubitus and right trochanteric ulcers clean, decreased skin turgor Laboratory Results - last 24 hr 06/08/19 06/09/19 06/09/19 21:44 05:57 06:00 Sodium 140 Potassium 4.0 Chloride 105 Carbon Dioxide 30 Anion Gap 6 L BUN 16.8 Creatinine 0.4 L Est GFR (CKD-EPI)AfAm 107.03 Est GFR (CKD-EPI)NonAf 92.34 POC Glucometer 80 56 Random Glucose 61 L Calcium 7.7 L 06/09/19 08:57 Sodium Potassium Chloride Carbon Dioxide Anion Gap BUN Creatinine Est GFR (CKD-EPI)AfAm Est GFR (CKD-EPI)NonAf POC Glucometer 78 Random Glucose Calcium Active Medications Generic Name Dose Route Start Last Admin Trade Name Freq PRN Reason Stop Dose Admin Acetaminophen 750 mg 05/23/19 11:32 Ofirmev Injection - IVPB Q6H PRN PAIN LEVEL 6-10 Collagenase 1 applic 05/18/19 16:00 06/09/19 10:22 Santyl - TP 1 applic DAILY GLORY Administration Protocol Cefazolin Sodium/Dextrose 2 gm in 50 mls @ 100 mls/hr 06/03/19 10:30 10:22 Ancef 2 Gm Premixed Ivpb - IVPB 100 mls/hr Q8H-IV GLORY Administration Amino Acids 1,000 mls @ 42 mls/hr 06/09/19 14:15 Clinimix - IV Q24H GLORY Dextrose/Sodium Chloride 1,000 mls @ 42 mls/hr 06/09/19 14:15 D5-Ns - IV ASDIR [facility] ASSESSMENT/PLAN: Ms. Rust is an 89y/o female (hospice patient prior to admission) with dementia , HTN, recurrent UTI, constipation, hypothyroidism, and malnutrition who presents with increased weakness and lethargy. Pt was admitted for severe sepsis 2/2 UTI and bacteremia. 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, improved -last set of blood cx now negative -Cefazolin 2gm Q8H (start 05/20)- will need total of 6 weeks -echo- no vegetations noted TTE -IV fluids for hypotension PRN -ID following #stage 4 decubitus ulcer, sacral and right trochanteric -cx grew multiple organisms in low numbers -Cefazolin #severe dehydration and malnutrition, improved -dextrose PRN with BGM- was hypoglycemic overnight -dysphagia diet -Clinimix 42mL/hr -D5NS 42mL/hr -dietary following #hypophosphatemia -PO phos #microcytic anemia s/p 1 unit PRBCs, improved #hyperchloridemia, resolved #hypokalemia, resolved #hypernatremia, resolved #hypomagnesemia, resolved #oral thrush, resolved DVT Ppx heparin FEN PO fluids/ D5NS 42mL/hr/ Clinimix 42mL/hr dysphagia puree diet code status DNR/DNI dispo waiting on placement Visit type - Emergency Visit Emergency Visit: Yes ED Registration Date: 05/18/19 Care time: The patient presented to the Emergency Department on the above date and was hospitalized for further evaluation of their emergent condition. - New Patient This patient is new to me today: No - Critical Care Critical Care patient: No - Discharge Referral Referred to [facility] Med P.C.: No ATTENDING PHYSICIAN STATEMENT I saw and evaluated the patient. I reviewed the resident's note and discussed the case with the resident. I agree with the resident's findings and plan as documented. SUBJECTIVE: OBJECTIVE: ASSESSMENT AND PLAN:
[2019-06-09] MEDS: AMINO ACIDS 4.25%/D5W 1,000 ML IV SCH (17:27)
[2019-06-09] MEDS: DEXTROSE 5%-NORMAL SALINE 1,000 ML IV SCH (21:01)
--- NOTE | 2019-06-09 21:19 | PN ---
Teaching Attending Note Name of Resident: Padmaja Henderson ATTENDING PHYSICIAN STATEMENT I saw and evaluated the patient. I reviewed the resident's note and discussed the case with the resident. I agree with the resident's findings and plan as documented. SUBJECTIVE: Patient is comfortable with no acute distress, no shortness of breath. Vital Signs Temperature 98.0 F 06/09/19 18:00 Pulse Rate 80 06/09/19 18:00 Respiratory Rate 75 H 06/09/19 18:00 Blood Pressure 104/61 06/09/19 18:00 O2 Sat by Pulse Oximetry (%) 98 06/08/19 21:00 GENERAL: The patient is nonverbal, contracted, but comfortable, cachectic HEAD: Normal with no signs of trauma. EYES: PERRL, EOMI, sclera anicteric, conjunctiva clear. ENT: Ears normal, dry mucus membrane , dry skin NECK: Trachea midline, full range of motion, supple. LUNGS: decreased Breath sounds bl , no wheezes, no crackles, no accessory muscle use. HEART: Regular rate and rhythm, S1, S2 positive, SHIMON 2/6 , no rub or gallop. ABDOMEN: Soft, NT,ND, normoactive bowel sounds, no guarding, no rebound, no hepatosplenomegaly, no masses. EXTREMITIES: 2+ pulses, warm, contracted LE , + edema 2+ NEUROLOGICAL: Cranial nerves II through XII grossly intact. gait not observed. PSYCH: non verbal , skin: Warm ,dry skin decub ulcer, stage 4, no discharge , no erythema , drainage from the right hip area CBCD WBC 7.9 K/mm3 (4.0-10.0) 06/08/19 06:15 RBC 2.81 M/mm3 (3.60-5.2) L 06/08/19 06:15 Hgb 7.3 GM/dL (10.7-15.3) L 06/08/19 06:15 Hct 22.5 % (32.4-45.2) L 06/08/19 06:15 MCV 80.1 fl (80-96) 06/08/19 06:15 MCHC 32.4 g/dl (32.0-36.0) 06/08/19 06:15 RDW 17.1 % (11.6-15.6) H 06/08/19 06:15 Plt Count 261 K/MM3 (134-434) 06/08/19 06:15 MPV 8.3 fl (7.5-11.1) 06/08/19 06:15 CMP Sodium 140 mmol/L (136-145) 06/09/19 06:00 Potassium 4.0 mmol/L (3.5-5.1) 06/09/19 06:00 Chloride 105 mmol/L (98-107) 06/09/19 06:00 Carbon Dioxide 30 mmol/L (21-32) 06/09/19 06:00 Anion Gap 6 MMOL/L (8-16) L 06/09/19 06:00 BUN 16.8 mg/dL (7-18) 06/09/19 06:00 Creatinine 0.4 mg/dL (0.55-1.3) L 06/09/19 06:00 Random Glucose 61 mg/dL (74-106) L 06/09/19 06:00 Calcium 7.7 mg/dL (8.5-10.1) L 06/09/19 06:00 Total Bilirubin 0.1 mg/dL (0.2-1) L 06/08/19 06:15 AST 10 U/L (15-37) L 06/08/19 06:15 ALT < 6 U/L (13-61) L 06/08/19 06:15 Alkaline Phosphatase 65 U/L (45-117) 06/08/19 06:15 Total Protein 3.7 g/dl (6.4-8.2) L 06/08/19 06:15 Albumin 1.3 g/dl (3.4-5.0) L 06/08/19 06:15 Current Medications Generic Name Dose Route Start Last Admin Trade Name Freq PRN Reason Stop Dose Admin Acetaminophen 750 mg 05/23/19 11:32 Ofirmev Injection - IVPB Q6H PRN PAIN LEVEL 6-10 Collagenase 1 applic 05/18/19 16:00 06/09/19 10:22 Santyl - TP 1 applic DAILY GLORY Administration Protocol Cefazolin Sodium/Dextrose 2 gm in 50 mls @ 100 mls/hr 06/03/19 10:30 21:03 Ancef 2 Gm Premixed Ivpb - IVPB 100 mls/hr Q8H-IV GLORY Administration Amino Acids 1,000 mls @ 42 mls/hr 06/09/19 14:15 06/09/19 17:27 Clinimix - IV 42 mls/hr Q24H GLORY Administration Dextrose/Sodium Chloride 1,000 mls @ 42 mls/hr 06/09/19 14:15 06/09/19 21:01 D5-Ns - IV Not Given ASDIR GLORY Home Medications Medication Instructions Recorded Levothyroxine [Synthroid -] 50 mcg PO DAILY 06/21/14 Ranitidine [Zantac -] 150 mg PO BID #30 tablet 07/16/18 Cefazolin 2 gm/D5w [Ancef 2 gm 2 gm IVPB Q8H 16 Days ml 06/04/19 Premixed Ivpb -] Collagenase Clostridium Hist. 1 applic TP DAILY tube 06/04/19 [Santyl -] Microbiology 05/24/19 11:20 Blood - Peripheral Venous Blood Culture - Final NO GROWTH AFTER 5 DAYS INCUBATION 05/24/19 10:00 Blood - Peripheral Venous Blood Culture - Final NO GROWTH AFTER 5 DAYS INCUBATION 05/21/19 07:20 Blood - Peripheral Venous Blood Culture - Final Staphylococcus Aureus 05/21/19 07:10 Blood - Peripheral Venous Blood Culture - Final Staphylococcus Aureus 05/19/19 12:05 Buttock - Right Gram Stain - Final 05/19/19 12:05 Buttock - Right Wound Culture - Final Escherichia Coli Pseudomonas Aeruginosa Staphylococcus Coagulase Neg Enterococcus Faecalis Proteus Mirabilis 05/17/19 22:32 Blood - Peripheral Venous Blood Culture - Final Staphylococcus Aureus 05/18/19 18:15 Blood - Peripheral Venous Blood Culture - Final Staphylococcus Aureus 05/18/19 18:00 Blood - Peripheral Venous Blood Culture - Final Staphylococcus Aureus 05/18/19 00:17 Urine - Urine Clean Catch Urine Culture - Final Klebsiella Pneumoniae 05/17/19 22:32 Blood - Peripheral Venous Blood Culture - Final Staphylococcus Aureus Assessment and plan: Patient is an 89 y/o with home hospice was brought in by the family member due to increased lethargy. she is supposedly on home Hospice care but family brought her here. # MSSA bacteremia continue on IV ancef 2gm continue day since last culture , no growth so far. #s/p Severe sepsis : due to MSSA bacteremia on IV ancef 2gm continue , ID on the case # s/p Acute hypernatremia : resolved now. # s/p Severe dehydration : improved , on CLinimax # hypotension : now normotensive. # Stage 4 Decub ulcer and positive drainage from the right hip. on IV antibiotics , wound care # Acute hypokalemia repleted , s/p clinimax with KCL # Klebsiella UTI on IV antibiotics continue #Nutrition: s/p clinamax , now completing her meals 100%, nutrition consult appreciated #hypophosphatemia and hypomagnesemia improved [facility] papers are signed in the chart. [facility] declined patient. s/p Family meeting ---> placement to [place] waiting for authorization for rehab
[2019-06-10] MEDS: CEFAZOLIN 2 GM/D5W 2 GM/50 ML ML IVPB SCH ×3 (03:47→17:40)
[2019-06-10] MEDS: DEXTROSE 5%-NORMAL SALINE 1,000 ML IV SCH ×2 (03:55→14:15)
[2019-06-10 09:53] LABS: CALCIUM 7.4 mg/dL (8.5-10.1); CREATININE 0.4 mg/dL (0.55-1.3); PHOSPHOROUS 2.3 mg/dL (2.5-4.9); POTASSIUM 3.7 mmol/L (3.5-5.1)
[2019-06-10] MEDS ORDERED: NAPH,MB-DB/K PH,MBDB POWDER PACKET PO ONE (10:05)
--- NOTE | 2019-06-10 10:54 | PN ---
Physical Exam: SUBJECTIVE: Patient seen and examined. Pt is non-verbal. OBJECTIVE: Vital Signs Period Temp Pulse Resp BP Sys/Chinchilla Pulse Ox Last 24 Hr 97.2 F-99.0 F 73-84 18-75 95-115/48-67 98 GENERAL: Sleeping, moves head with sternal rub. HEAD: Normal with no signs of trauma. Tooth loss. EYES: Conjunctiva clear. ENT: Ears normal, nares patent, moist mucous membranes NECK: Trachea midline LUNGS: Clear to auscultation bilaterally, no wheezes HEART: Regular rate and rhythm, 3/6 systolic murmur ABDOMEN: Mild distention, non-tender on palpation, normoactive bowel sounds EXTREMITIES: well-perfused, +1 pitting edema b/l feet, right arm PICC with no erythema NEUROLOGICAL: Cannot be assessed. PSYCH: Cannot be assessed. SKIN: Warm, dry, sacral decubitus and right trochanteric ulcers clean, decreased skin turgor Laboratory Results - last 24 hr 06/09/19 06/10/19 06/10/19 17:09 06:30 06:57 Sodium 142 Potassium 3.7 Chloride 107 Carbon Dioxide 30 Anion Gap 5 L BUN 15.0 Creatinine 0.4 L Est GFR (CKD-EPI)AfAm 107.03 Est GFR (CKD-EPI)NonAf 92.34 POC Glucometer 69 83 Random Glucose 68 L Calcium 7.4 L Phosphorus 2.3 L Active Medications Generic Name Dose Route Start Last Admin Trade Name Freq PRN Reason Stop Dose Admin Acetaminophen 750 mg 05/23/19 11:32 Ofirmev Injection - IVPB Q6H PRN PAIN LEVEL 6-10 Collagenase 1 applic 05/18/19 16:00 06/09/19 10:22 Santyl - TP 1 applic DAILY GLORY Administration Protocol Cefazolin Sodium/Dextrose 2 gm in 50 mls @ 100 mls/hr 06/03/19 10:30 10:03 Ancef 2 Gm Premixed Ivpb - IVPB 100 mls/hr Q8H-IV GLORY Administration Amino Acids 1,000 mls @ 42 mls/hr 06/09/19 14:15 06/09/19 17:27 Clinimix - IV 42 mls/hr Q24H GLORY Administration Dextrose/Sodium Chloride 1,000 mls @ 42 mls/hr 06/09/19 14:15 06/10/19 03:55 D5-Ns - IV 42 mls/hr ASDIR GLORY Administration ASSESSMENT/PLAN: Ms. Rust is an 89y/o female (hospice patient prior to admission) with dementia , HTN, recurrent UTI, constipation, hypothyroidism, and malnutrition who presents with increased weakness and lethargy. Pt was admitted for severe sepsis 2/2 UTI and bacteremia. 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, improved -last set of blood cx now negative 05/24 -Cefazolin 2gm Q8H- will need total of 6 weeks (to 07/04/19) -ID following #stage 4 decubitus ulcer, sacral and right trochanteric -Cefazolin #severe dehydration and malnutrition, improved -dextrose PRN with BGM -dysphagia diet -Clinimix 42mL/hr -D5NS 42mL/hr -dietary following #hypophosphatemia -PO phos -monitor #microcytic anemia s/p 1 unit PRBCs, improved #hyperchloridemia, resolved #hypokalemia, resolved #hypernatremia, resolved #hypomagnesemia, resolved #oral thrush, resolved DVT Ppx heparin FEN PO fluids/ D5NS 42mL/hr/ Clinimix 42mL/hr dysphagia puree diet code status DNR/DNI dispo waiting on placement Visit type - Emergency Visit Emergency Visit: Yes ED Registration Date: 05/18/19 Care time: The patient presented to the Emergency Department on the above date and was hospitalized for further evaluation of their emergent condition. - New Patient This patient is new to me today: No - Critical Care Critical Care patient: No - Discharge Referral Referred to [facility] Med P.C.: No ATTENDING PHYSICIAN STATEMENT I saw and evaluated the patient. I reviewed the resident's note and discussed the case with the resident. I agree with the resident's findings and plan as documented. SUBJECTIVE: OBJECTIVE: ASSESSMENT AND PLAN:
[2019-06-10] MEDS: COLLAGENASE CLOSTRIDIUM HIST. 30 GRAMS TUBE TP SCH (11:43)
--- NOTE | 2019-06-10 16:28 | PN ---
Teaching Attending Note Name of Resident: Padmaja Henderson ATTENDING PHYSICIAN STATEMENT I saw and evaluated the patient. I reviewed the resident's note and discussed the case with the resident. I agree with the resident's findings and plan as documented. SUBJECTIVE: Seen and examined at bedside. No acute events overnight. OBJECTIVE: Vital Signs - 24 hr 06/09/19 06/09/19 06/09/19 18:00 21:00 22:00 Temperature 98.0 F 99.0 F Pulse Rate 80 76 Respiratory 75 H 18 Rate Blood Pressure 104/61 98/48 L O2 Sat by Pulse 98 Oximetry (%) 06/10/19 06/10/19 06/10/19 01:56 07:00 13:00 Temperature 97.2 F L 97.6 F 98.5 F Pulse Rate 84 73 83 Respiratory 18 18 18 Rate Blood Pressure 115/67 106/53 L 100/59 L O2 Sat by Pulse Oximetry (%) PHYSICAL EXAM: GENERAL: NAD CVS: S1S2, RRR LUNGS: CTA BL ANTERIORLY ABDOMEN: SOFT, NTND, NABS EXT: STAGE 4 SACRAL AND RIGHT HIP DECUB Current Medications Generic Name Dose Route Start Last Admin Trade Name Freq PRN Reason Stop Dose Admin Acetaminophen 750 mg 05/23/19 11:32 Ofirmev Injection - IVPB Q6H PRN PAIN LEVEL 6-10 Collagenase 1 applic 05/18/19 16:00 06/10/19 11:43 Santyl - TP 1 applic DAILY GLORY Administration Protocol Cefazolin Sodium/Dextrose 2 gm in 50 mls @ 100 mls/hr 06/03/19 10:30 10:03 Ancef 2 Gm Premixed Ivpb - IVPB 100 mls/hr Q8H-IV GLORY Administration Amino Acids 1,000 mls @ 42 mls/hr 06/09/19 14:15 06/09/19 17:27 Clinimix - IV 42 mls/hr Q24H GLORY Administration Dextrose/Sodium Chloride 1,000 mls @ 42 mls/hr 06/09/19 14:15 06/10/19 03:55 D5-Ns - IV 42 mls/hr ASDIR GLORY Administration Laboratory Results - last 24 hr 06/09/19 06/10/19 06/10/19 17:09 06:30 06:57 Sodium 142 Potassium 3.7 Chloride 107 Carbon Dioxide 30 Anion Gap 5 L BUN 15.0 Creatinine 0.4 L Est GFR (CKD-EPI)AfAm 107.03 Est GFR (CKD-EPI)NonAf 92.34 POC Glucometer 69 83 Random Glucose 68 L Calcium 7.4 L Phosphorus 2.3 L Microbiology 05/24/19 11:20 Blood - Peripheral Venous Blood Culture - Final NO GROWTH AFTER 5 DAYS INCUBATION 05/24/19 10:00 Blood - Peripheral Venous Blood Culture - Final NO GROWTH AFTER 5 DAYS INCUBATION 05/21/19 07:20 Blood - Peripheral Venous Blood Culture - Final Staphylococcus Aureus 05/21/19 07:10 Blood - Peripheral Venous Blood Culture - Final Staphylococcus Aureus 05/19/19 12:05 Buttock - Right Gram Stain - Final 05/19/19 12:05 Buttock - Right Wound Culture - Final Escherichia Coli Pseudomonas Aeruginosa Staphylococcus Coagulase Neg Enterococcus Faecalis Proteus Mirabilis 05/17/19 22:32 Blood - Peripheral Venous Blood Culture - Final Staphylococcus Aureus 05/18/19 18:15 Blood - Peripheral Venous Blood Culture - Final Staphylococcus Aureus 05/18/19 18:00 Blood - Peripheral Venous Blood Culture - Final Staphylococcus Aureus 05/18/19 00:17 Urine - Urine Clean Catch Urine Culture - Final Klebsiella Pneumoniae 05/17/19 22:32 Blood - Peripheral Venous Blood Culture - Final Staphylococcus Aureus ASSESSMENT AND PLAN: 89 year old female with home hospice was brought in by the family member due to increased lethargy 1) Sepsis, MSSA bacteremia -repeat cx neg -needs to continue IV abx, today day -waiting for auth for transfer to rehab 2) Hypernatremia-resolved 3) Stage 4 decub-wound care and iv abx 4) Klebsiella UTI on abx
[2019-06-10] MEDS: AMINO ACIDS 4.25%/D5W 1,000 ML IV SCH (18:02)
[2019-06-11] MEDS: CEFAZOLIN 2 GM/D5W 2 GM/50 ML ML IVPB SCH ×3 (03:01→17:56)
[2019-06-11] MEDS: DEXTROSE 5%-NORMAL SALINE 1,000 ML IV SCH ×2 (03:02→17:56)
[2019-06-11 08:59] LABS: BLOOD UREA NITROGEN 16.8 mg/dL (7-18); CALCIUM 7.4 mg/dL (8.5-10.1); CREATININE 0.4 mg/dL (0.55-1.3); MAGNESIUM 1.6 mg/dL (1.8-2.4); PHOSPHOROUS 2.3 mg/dL (2.5-4.9); POTASSIUM 3.8 mmol/L (3.5-5.1)
[2019-06-11] MEDS ORDERED: MAGNESIUM SULF 50% (8.12 MEQ/2 ML-1 GM VIAL) IVPB ONE (09:02)
[2019-06-11] MEDS: COLLAGENASE CLOSTRIDIUM HIST. 30 GRAMS TUBE TP SCH (11:26)
[2019-06-11] MEDS ORDERED: NAPH,MB-DB/K PH,MBDB POWDER PACKET PO ONE (14:37)
--- NOTE | 2019-06-11 14:45 | PN ---
Physical Exam: SUBJECTIVE: Patient seen and examined. Pt is non-verbal. OBJECTIVE: Vital Signs Period Temp Pulse Resp BP Sys/Chinchilla Pulse Ox Last 24 Hr 98.3 F-99.3 F 81-97 18-20 99-119/50-59 100 GENERAL: Sleeping, moves head with sternal rub. HEAD: Normal with no signs of trauma. Tooth loss. EYES: Conjunctiva clear. ENT: Ears normal, nares patent, moist mucous membranes NECK: Trachea midline LUNGS: Clear to auscultation bilaterally, no wheezes HEART: Regular rate and rhythm, 3/6 systolic murmur ABDOMEN: Mild distention, non-tender on palpation, normoactive bowel sounds EXTREMITIES: well-perfused, +1 pitting edema b/l feet, right arm PICC with no erythema NEUROLOGICAL: Cannot be assessed. PSYCH: Cannot be assessed. SKIN: Warm, dry, sacral decubitus and right trochanteric ulcers clean, decreased skin turgor Laboratory Results - last 24 hr 06/10/19 06/11/19 06/11/19 17:43 06:00 06:45 Sodium 139 Potassium 3.8 Chloride 105 Carbon Dioxide 28 Anion Gap 6 L BUN 16.8 Creatinine 0.4 L Est GFR (CKD-EPI)AfAm 107.03 Est GFR (CKD-EPI)NonAf 92.34 POC Glucometer 112 93 Random Glucose 73 L Calcium 7.4 L Phosphorus 2.3 L Magnesium 1.6 L Active Medications Generic Name Dose Route Start Last Admin Trade Name Freq PRN Reason Stop Dose Admin Acetaminophen 750 mg 05/23/19 11:32 Ofirmev Injection - IVPB Q6H PRN PAIN LEVEL 6-10 Collagenase 1 applic 05/18/19 16:00 06/11/19 11:26 Santyl - TP 1 applic DAILY GLORY Administration Protocol Cefazolin Sodium/Dextrose 2 gm in 50 mls @ 100 mls/hr 06/03/19 10:30 11:26 Ancef 2 Gm Premixed Ivpb - IVPB 100 mls/hr Q8H-IV GLORY Administration Amino Acids 1,000 mls @ 42 mls/hr 06/09/19 14:15 06/10/19 18:02 Clinimix - IV 42 mls/hr Q24H GLORY Administration Dextrose/Sodium Chloride 1,000 mls @ 42 mls/hr 06/09/19 14:15 06/11/19 03:02 D5-Ns - IV 42 mls/hr ASDIR GLORY Administration Potassium Phos/Sodium Phos 1 packet 06/11/19 14:37 Phos-Nak Packet - PO 06/11/19 14:38 ONCE ONE ASSESSMENT/PLAN: Ms. Rust is an 89y/o female (hospice patient prior to admission) with dementia , HTN, recurrent UTI, constipation, hypothyroidism, and malnutrition who presents with increased weakness and lethargy. Pt was admitted for severe sepsis 2/2 UTI and bacteremia. 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, improved -last set of blood cx now negative 05/24 -Cefazolin 2gm Q8H- will need total of 6 weeks (to 07/04/19) -ID following #stage 4 decubitus ulcer, sacral and right trochanteric -Cefazolin #severe dehydration and malnutrition, improved -dextrose PRN with BGM -dysphagia diet -Clinimix 42mL/hr -D5NS 42mL/hr -dietary following #hypophosphatemia -PO phos -monitor #hypomagnesemia -replete -monitor #microcytic anemia s/p 1 unit PRBCs, improved #hyperchloridemia, resolved #hypokalemia, resolved #hypernatremia, resolved #oral thrush, resolved DVT Ppx heparin FEN PO fluids/ D5NS 42mL/hr/ Clinimix 42mL/hr dysphagia puree diet code status DNR/DNI dispo waiting on placement Visit type - Emergency Visit Emergency Visit: Yes ED Registration Date: 05/18/19 Care time: The patient presented to the Emergency Department on the above date and was hospitalized for further evaluation of their emergent condition. - New Patient This patient is new to me today: No - Critical Care Critical Care patient: No - Discharge Referral Referred to [facility] Med P.C.: No ATTENDING PHYSICIAN STATEMENT I saw and evaluated the patient. I reviewed the resident's note and discussed the case with the resident. I agree with the resident's findings and plan as documented. SUBJECTIVE: OBJECTIVE: ASSESSMENT AND PLAN:
--- NOTE | 2019-06-11 19:22 | PN ---
Teaching Attending Note Name of Resident: Jessika Roberts ATTENDING PHYSICIAN STATEMENT I saw and evaluated the patient. I reviewed the resident's note and discussed the case with the resident. I agree with the resident's findings and plan as documented. SUBJECTIVE: no events over night OBJECTIVE: MMM. Opens eyes but non verbal. CV: RRR Lungs: clear anteriorly Abd: Soft, NT. ND. NL BS Ext: pitting edema on arms improved. still on feet 3+. A/p 1- Severe sepsis: improved 2- MSSA bacteremia: cleared 3- Endocarditis 4- hypotension: improved 5- Stage 4 Decub ulcer 6- Severe protein calorie malnutrition . 7- Cachexia 8- hypernatremia : resolved 9- Klebsiella UTI 10- Anemia plan : - dc IVF - cont clinimix - cont cefazoline day - cont diet - replete phos and mag placement is pending
[2019-06-11] MEDS: AMINO ACIDS 4.25%/D5W 1,000 ML IV SCH (20:35)
[2019-06-12] MEDS: CEFAZOLIN 2 GM/D5W 2 GM/50 ML ML IVPB SCH ×3 (02:53→18:10)
[2019-06-12 09:22] LABS: BLOOD UREA NITROGEN 14.9 mg/dL (7-18); CALCIUM 7.2 mg/dL (8.5-10.1); CREATININE 0.3 mg/dL (0.55-1.3); MAGNESIUM 2.2 mg/dL (1.8-2.4); PHOSPHOROUS 2.3 mg/dL (2.5-4.9); POTASSIUM 3.6 mmol/L (3.5-5.1)
--- NOTE | 2019-06-12 12:46 | PN ---
Teaching Attending Note Name of Resident: Padmaja Henderson ATTENDING PHYSICIAN STATEMENT I saw and evaluated the patient. I reviewed the resident's note and discussed the case with the resident. I agree with the resident's findings and plan as documented. SUBJECTIVE: No events over night OBJECTIVE: MMM. Opens eyes but non verbal. CV: RRR Lungs: clear anteriorly Abd: Soft, NT. ND. NL BS Ext: pitting edema on arms improved.2+ on legs , feet 3+. A/p 1- Severe sepsis: improved 2- MSSA bacteremia: cleared 3- Endocarditis 4- hypotension: improved 5- Stage 4 Decub ulcer 6- Severe protein calorie malnutrition . 7- Cachexia 8- hypernatremia: resolved 9- Klebsiella UTI 10- Anemia plan : - low grade fever last night resolved without tylenol. will monitor - cont clinimix - replete Phos - cont cefazoline day - cont diet - add heparin SQ for DVT px placement is pending
--- NOTE | 2019-06-12 13:43 | PN ---
Physical Exam: SUBJECTIVE: Patient seen and examined. Pt is non-verbal. OBJECTIVE: Vital Signs Period Temp Pulse Resp BP Sys/Chinchilla Pulse Ox Last 24 Hr 98.2 F-100.5 F 66-88 18-20 97-110/51-57 100 GENERAL: Awake. HEAD: Normal with no signs of trauma. Tooth loss. EYES: Conjunctiva clear. ENT: Ears normal, nares patent, moist mucous membranes NECK: Trachea midline LUNGS: Clear to auscultation bilaterally, no wheezes HEART: Regular rate and rhythm, 3/6 systolic murmur ABDOMEN: Mild distention, non-tender on palpation, normoactive bowel sounds EXTREMITIES: well-perfused, +2 pitting edema b/l feet, right arm PICC with no erythema NEUROLOGICAL: Cannot be assessed. PSYCH: Cannot be assessed. SKIN: Warm, dry Laboratory Results - last 24 hr 06/12/19 06/12/19 06/12/19 07:10 07:13 13:01 Sodium 136 Potassium 3.6 Chloride 103 Carbon Dioxide 27 Anion Gap 6 L BUN 14.9 Creatinine 0.3 L Est GFR (CKD-EPI)AfAm 117.65 Est GFR (CKD-EPI)NonAf 101.51 POC Glucometer 228 78 Random Glucose 202 H Calcium 7.2 L Phosphorus 2.3 L Magnesium 2.2 Active Medications Generic Name Dose Route Start Last Admin Trade Name Rona PRN Reason Stop Dose Admin Acetaminophen 750 mg 05/23/19 11:32 Ofirmev Injection - IVPB Q6H PRN PAIN LEVEL 6-10 Collagenase 1 applic 05/18/19 16:00 06/11/19 11:26 Santyl - TP 1 applic DAILY GLORY Administration Protocol Heparin Sodium (Porcine) 5,000 unit 06/12/19 14:00 Heparin - SQ TID GLORY Cefazolin Sodium/Dextrose 2 gm in 50 mls @ 100 mls/hr 06/03/19 10:30 10:56 Ancef 2 Gm Premixed Ivpb - IVPB 100 mls/hr Q8H-IV GLORY Administration Amino Acids 1,000 mls @ 42 mls/hr 06/09/19 14:15 06/11/19 20:35 Clinimix - IV 42 mls/hr Q24H GLORY Administration Potassium Phos/Sodium Phos 1 packet 06/12/19 12:00 Phos-Nak Packet - PO 06/12/19 22:01 BID [facility] ASSESSMENT/PLAN: Ms. Rust is an 89y/o female (hospice patient prior to admission) with dementia , HTN, recurrent UTI, constipation, hypothyroidism, and malnutrition who presents with increased weakness and lethargy. Pt was admitted for severe sepsis 2/2 UTI and bacteremia. 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, improved -last set of blood cx now negative 05/24 -Cefazolin 2gm Q8H -ID following #stage 4 decubitus ulcer, sacral and right trochanteric -Cefazolin #severe dehydration and malnutrition, improved -dextrose PRN with BGM -dysphagia diet -Clinimix 42mL/hr -dietary following #hypophosphatemia -PO phos -monitor #microcytic anemia s/p 1 unit PRBCs, improved #hyperchloridemia, resolved #hypokalemia, resolved #hypernatremia, resolved #hypomagnesemia, resolved #oral thrush, resolved DVT Ppx heparin FEN PO fluids/ Clinimix 42mL/hr dysphagia puree diet code status DNR/DNI dispo waiting on placement Visit type - Emergency Visit Emergency Visit: Yes ED Registration Date: 05/18/19 Care time: The patient presented to the Emergency Department on the above date and was hospitalized for further evaluation of their emergent condition. - New Patient This patient is new to me today: No - Critical Care Critical Care patient: No - Discharge Referral Referred to [facility] Med P.C[facility] No ATTENDING PHYSICIAN STATEMENT I saw and evaluated the patient. I reviewed the resident's note and discussed the case with the resident. I agree with the resident's findings and plan as documented. SUBJECTIVE: OBJECTIVE: ASSESSMENT AND PLAN:
[2019-06-12] MEDS: COLLAGENASE CLOSTRIDIUM HIST. 30 GRAMS TUBE TP SCH (14:00)
[2019-06-12] MEDS: HEPARIN NA (PORCINE) 5,000 UNITS/ML 1ML VIAL SQ SCH ×2 (15:00→21:19)
[2019-06-12] MEDS: NAPH,MB-DB/K PH,MBDB POWDER PACKET PO SCH ×2 (15:16→21:20)
[2019-06-12] MEDS: AMINO ACIDS 4.25%/D5W 1,000 ML IV SCH ×2 (16:14→18:10)
[2019-06-13] MEDS: CEFAZOLIN 2 GM/D5W 2 GM/50 ML ML IVPB SCH ×3 (02:27→18:15)
[2019-06-13] MEDS: HEPARIN NA (PORCINE) 5,000 UNITS/ML 1ML VIAL SQ SCH ×3 (06:36→21:33)
[2019-06-13 09:00] LABS: BLOOD UREA NITROGEN 14.2 mg/dL (7-18); CALCIUM 7.4 mg/dL (8.5-10.1); CREATININE 0.3 mg/dL (0.55-1.3); PHOSPHOROUS 2.1 mg/dL (2.5-4.9); POTASSIUM 3.8 mmol/L (3.5-5.1)
[2019-06-13] MEDS: COLLAGENASE CLOSTRIDIUM HIST. 30 GRAMS TUBE TP SCH (10:00)
--- NOTE | 2019-06-13 14:29 | PN ---
Progress Note (short form) - Note Progress Note: Subjective: no events over night Objective: Vital Signs: Last Vital Signs Temp Pulse Resp BP Pulse Ox 98.8 F 72 18 101/57 L 98 06/13/19 09:00 06/13/19 09:00 06/13/19 09:00 06/13/19 09:00 06/13/19 09:00 Laboratory Results - last 24 hr 06/13/19 06/13/19 06:15 06:42 Sodium 139 Potassium 3.8 Chloride 105 Carbon Dioxide 26 Anion Gap 8 BUN 14.2 Creatinine 0.3 L Est GFR (CKD-EPI)AfAm 117.65 Est GFR (CKD-EPI)NonAf 101.51 POC Glucometer 128 Random Glucose 148 H Calcium 7.4 L Phosphorus 2.1 L Magnesium 2.0 Physical Exam: MMM. Opens eyes but non verbal. CV: RRR Lungs: clear anteriorly Abd: Soft, NT. ND. NL BS Ext: pitting edema on arms improved.2+ on legs , feet 3+. A/p 1- Severe sepsis: improved 2- MSSA bacteremia: cleared 3- Endocarditis 4- hypotension: improved 5- Stage 4 Decub ulcer 6- Severe protein calorie malnutrition . 7- Cachexia 8- hypernatremia: resolved 9- Klebsiella UTI 10- Anemia plan : - no recurrence of fever - cont clinimix - cont cefazoline day - cont diet - SQ for DVT px placement is pending Visit type - Emergency Visit Emergency Visit: Yes ED Registration Date: 05/18/19 Care time: The patient presented to the Emergency Department on the above date and was hospitalized for further evaluation of their emergent condition. - New Patient This patient is new to me today: No - Critical Care Critical Care patient: No
[2019-06-13] MEDS: AMINO ACIDS 4.25%/D5W 1,000 ML IV SCH (15:49)
[2019-06-14] MEDS: CEFAZOLIN 2 GM/D5W 2 GM/50 ML ML IVPB SCH ×3 (02:46→17:28)
[2019-06-14] MEDS: HEPARIN NA (PORCINE) 5,000 UNITS/ML 1ML VIAL SQ SCH ×3 (06:23→21:18)
[2019-06-14 08:13] LABS: BASO % 0.9 % (0-2.0); EOS % 1.3 % (0-4.5); HEMATOCRIT 21.7 % (32.4-45.2); LYMPH % 15.3 % (8-40); MCHC 32.2 g/dl (32.0-36.0); MEAN CELL VOLUME 80.6 fl (80-96); MEAN PLT VOLUME 8.3 fl (7.5-11.1); MONO % 5.7 % (3.8-10.2); NEUT % 76.8 % (42.8-82.8); PLATELET COUNT 317 K/MM3 (134-434); RBC 2.69 M/mm3 (3.60-5.2); RDW 16.8 % (11.6-15.6); WHITE BLOOD COUNT 8.1 K/mm3 (4.0-10.0)
[2019-06-14 08:23] LABS: BLOOD UREA NITROGEN 14.6 mg/dL (7-18); CALCIUM 7.3 mg/dL (8.5-10.1); CREATININE 0.4 mg/dL (0.55-1.3); POTASSIUM 3.6 mmol/L (3.5-5.1)
[2019-06-14] MEDS: COLLAGENASE CLOSTRIDIUM HIST. 30 GRAMS TUBE TP SCH (14:57)
[2019-06-14] MEDS: ACETAMINOPHEN 1000 MG/100 ML VIAL (NON FORMULARY) IVPB PRN (15:28)
--- NOTE | 2019-06-14 16:26 | PN ---
Physical Exam: SUBJECTIVE: Patient seen and examined. Pt is more active. Per nursing, pt is having small BMs. OBJECTIVE: Vital Signs Period Temp Pulse Resp BP Sys/Chinchilla Pulse Ox Last 24 Hr 98.2 F-98.5 F 66-83 18-20 101-111/51-64 98-100 GENERAL: Awake. Makes eye contact. HEAD: Normal with no signs of trauma. Tooth loss. EYES: Conjunctiva clear. ENT: Ears normal, nares patent, moist mucous membranes NECK: Trachea midline LUNGS: Clear to auscultation bilaterally, no wheezes HEART: Regular rate and rhythm, 3/6 systolic murmur ABDOMEN: Distended, non-tender on palpation, normoactive bowel sounds BACK: stage 4 sacral ulcer with bluish-greenish and serosangineous discharge on gauze, stage 4 right trochanteric ulcer with serosang drainage EXTREMITIES: well-perfused, +2 pitting edema b/l feet, right arm PICC with no erythema NEUROLOGICAL: Cannot be assessed. PSYCH: Cannot be assessed. SKIN: Warm, dry Laboratory Results - last 24 hr 06/13/19 06/14/19 06/14/19 18:03 06:00 06:27 WBC RBC Hgb Hct MCV MCH MCHC RDW Plt Count MPV Absolute Neuts (auto) Neutrophils % Lymphocytes % Monocytes % Eosinophils % Basophils % Nucleated RBC % Sodium 137 Potassium 3.6 Chloride 104 Carbon Dioxide 26 Anion Gap 7 L BUN 14.6 Creatinine 0.4 L Est GFR (CKD-EPI)AfAm 107.03 Est GFR (CKD-EPI)NonAf 92.34 POC Glucometer 90 121 Random Glucose 203 H Calcium 7.3 L 06/14/19 06:30 WBC 8.1 RBC 2.69 L Hgb 7.0 L Hct 21.7 L MCV 80.6 MCH 26.0 MCHC 32.2 RDW 16.8 H Plt Count 317 D MPV 8.3 Absolute Neuts (auto) 6.2 Neutrophils % 76.8 Lymphocytes % 15.3 Monocytes % 5.7 Eosinophils % 1.3 Basophils % 0.9 Nucleated RBC % 0 Sodium Potassium Chloride Carbon Dioxide Anion Gap BUN Creatinine Est GFR (CKD-EPI)AfAm Est GFR (CKD-EPI)NonAf POC Glucometer Random Glucose Calcium Active Medications Generic Name Dose Route Start Last Admin Trade Name Freq PRN Reason Stop Dose Admin Acetaminophen 750 mg 05/23/19 11:32 06/14/19 15:28 Ofirmev Injection - IVPB 750 mg Q6H PRN Administration PAIN LEVEL 6-10 Collagenase 1 applic 05/18/19 16:00 06/14/19 14:57 Santyl - TP 1 applic DAILY GLORY Administration Protocol Heparin Sodium (Porcine) 5,000 unit 06/12/19 14:00 06/14/19 15:29 Heparin - SQ 5,000 unit TID GLORY Administration Cefazolin Sodium/Dextrose 2 gm in 50 mls @ 100 mls/hr 06/03/19 10:30 10:34 Ancef 2 Gm Premixed Ivpb - IVPB 100 mls/hr Q8H-IV GLORY Administration Amino Acids 1,000 mls @ 42 mls/hr 06/09/19 14:15 06/13/19 15:49 Clinimix - IV 42 mls/hr Q24H GLORY Administration ASSESSMENT/PLAN: Ms. Rust is an 89y/o female (hospice patient prior to admission) with dementia , HTN, recurrent UTI, constipation, hypothyroidism, and malnutrition who presents with increased weakness and lethargy. Pt was admitted for severe sepsis 2/2 UTI and bacteremia. 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, improved -last set of blood cx now negative 05/24 -Cefazolin 2gm Q8H -ID following #stage 4 decubitus ulcer, sacral and right trochanteric -drainage present -continue abx -monitor #severe dehydration and malnutrition, improved -dextrose PRN with BGM -dysphagia diet -Clinimix 42mL/hr -dietary following #hypophosphatemia -PO phos -monitor #microcytic anemia s/p 1 unit PRBCs -monitor #hyperchloridemia, resolved #hypokalemia, resolved #hypernatremia, resolved #hypomagnesemia, resolved #oral thrush, resolved DVT Ppx heparin FEN PO fluids/ Clinimix 42mL/hr dysphagia puree diet code status DNR/DNI dispo waiting on placement Visit type - Emergency Visit Emergency Visit: Yes ED Registration Date: 05/18/19 Care time: The patient presented to the Emergency Department on the above date and was hospitalized for further evaluation of their emergent condition. - New Patient This patient is new to me today: No - Critical Care Critical Care patient: No - Discharge Referral Referred to [facility] Med P.C.: No ATTENDING PHYSICIAN STATEMENT I saw and evaluated the patient. I reviewed the resident's note and discussed the case with the resident. I agree with the resident's findings and plan as documented. SUBJECTIVE: OBJECTIVE: ASSESSMENT AND PLAN:
[2019-06-14] MEDS: AMINO ACIDS 4.25%/D5W 1,000 ML IV SCH (17:28)
--- NOTE | 2019-06-14 19:33 | PN ---
Teaching Attending Note Name of Resident: Padmaja Henderson ATTENDING PHYSICIAN STATEMENT I saw and evaluated the patient. I reviewed the resident's note and discussed the case with the resident. I agree with the resident's findings and plan as documented. SUBJECTIVE: no events . small hard BMs OBJECTIVE: MMM. Opens eyes but non verbal. CV: RRR Lungs: decreased breath sounds at bases Abd: Soft, NT. slightly distended . NL BS Ext: pitting edema on arms improved.2+ on legs , feet 3+. R posterior hip ulcer ( satge 4 ) , sacral decubitus ( stage 4) . drainage on gauze with blue discoloration . A/p 1- Severe sepsis: improved 2- MSSA bacteremia: cleared 3- Endocarditis 4- hypotension: improved 5- Stage 4 Decub ulcer 6- Severe protein calorie malnutrition . 7- Cachexia 8- hypernatremia: resolved 9- Klebsiella UTI 10- Anemia plan : - cont clinimix - cont cefazoline day 22/28 - cont diet - SQ for DVT px - treat constipation - will discuss blue discoloration with ID placement is pending
[2019-06-14] MEDS: DOCUSATE NA 100 MG/10 ML UNIT-DOSE CUPS PO PRN (21:18)
[2019-06-15] MEDS: CEFAZOLIN 2 GM/D5W 2 GM/50 ML ML IVPB SCH ×3 (02:47→17:40)
[2019-06-15] MEDS: HEPARIN NA (PORCINE) 5,000 UNITS/ML 1ML VIAL SQ SCH ×3 (06:03→23:10)
[2019-06-15 09:03] LABS: BASO % 0.7 % (0-2.0); EOS % 1.1 % (0-4.5); HEMATOCRIT 23.7 % (32.4-45.2); HEMOGLOBIN 7.6 GM/dL (10.7-15.3); MCH 25.8 pg (25.7-33.7); MCHC 31.9 g/dl (32.0-36.0); MEAN CELL VOLUME 80.8 fl (80-96); MEAN PLT VOLUME 8.5 fl (7.5-11.1); MONO % 5.3 % (3.8-10.2); NEUT % 78.9 % (42.8-82.8); PLATELET COUNT 393 K/MM3 (134-434); RBC 2.94 M/mm3 (3.60-5.2); RDW 16.8 % (11.6-15.6); WHITE BLOOD COUNT 11.3 K/mm3 (4.0-10.0)
[2019-06-15 10:01] LABS: BLOOD UREA NITROGEN 19.7 mg/dL (7-18); CALCIUM 7.4 mg/dL (8.5-10.1); CREATININE 0.5 mg/dL (0.55-1.3); MAGNESIUM 1.8 mg/dL (1.8-2.4); PHOSPHOROUS 2.4 mg/dL (2.5-4.9); POTASSIUM 4.1 mmol/L (3.5-5.1)
[2019-06-15] MEDS: ACETAMINOPHEN 1000 MG/100 ML VIAL (NON FORMULARY) IVPB PRN (10:01)
--- NOTE | 2019-06-15 13:18 | PN ---
Physical Exam: SUBJECTIVE: Patient seen and examined. She is able to speak a couple words at a time. OBJECTIVE: Vital Signs Period Temp Pulse Resp BP Sys/Chinchilla Pulse Ox Last 24 Hr 98.3 F-98.9 F 72-88 20-20 100-117/58-64 96 GENERAL: Awake. Makes eye contact. Able to speak 1-2 words at a time. HEAD: Normal with no signs of trauma. Tooth loss. EYES: Conjunctiva clear. ENT: Ears normal, nares patent, moist mucous membranes NECK: Trachea midline LUNGS: Clear to auscultation bilaterally, no wheezes HEART: Regular rate and rhythm, 3/6 systolic murmur ABDOMEN: Distended, non-tender on palpation, normoactive bowel sounds BACK: stage 4 sacral ulcer and right trochanteric ulcer bandaged EXTREMITIES: well-perfused, +2 pitting edema b/l feet, right arm PICC with no erythema NEUROLOGICAL: Cannot be assessed. PSYCH: Cannot be assessed. SKIN: Warm, dry Laboratory Results - last 24 hr 06/14/19 06/15/19 06/15/19 16:35 00:00 07:09 WBC 11.3 H RBC 2.94 L Hgb 7.6 L Hct 23.7 L MCV 80.8 MCH 25.8 MCHC 31.9 L RDW 16.8 H Plt Count 393 D MPV 8.5 Absolute Neuts (auto) 8.9 H Neutrophils % 78.9 Lymphocytes % 14.0 Monocytes % 5.3 Eosinophils % 1.1 Basophils % 0.7 Nucleated RBC % 0 Sodium Potassium Chloride Carbon Dioxide Anion Gap BUN Creatinine Est GFR (CKD-EPI)AfAm Est GFR (CKD-EPI)NonAf POC Glucometer 102 95 Random Glucose Calcium Phosphorus Magnesium 06/15/19 07:09 WBC RBC Hgb Hct MCV MCH MCHC RDW Plt Count MPV Absolute Neuts (auto) Neutrophils % Lymphocytes % Monocytes % Eosinophils % Basophils % Nucleated RBC % Sodium 139 Potassium 4.1 Chloride 106 Carbon Dioxide 24 Anion Gap 9 BUN 19.7 H Creatinine 0.5 L Est GFR (CKD-EPI)AfAm 99.45 Est GFR (CKD-EPI)NonAf 85.81 POC Glucometer Random Glucose 70 L Calcium 7.4 L Phosphorus 2.4 L Magnesium 1.8 Active Medications Generic Name Dose Route Start Last Admin Trade Name Freq PRN Reason Stop Dose Admin Acetaminophen 750 mg 05/23/19 11:32 06/15/19 10:01 Ofirmev Injection - IVPB 750 mg Q6H PRN Administration PAIN LEVEL 6-10 Collagenase 1 applic 05/18/19 16:00 06/14/19 14:57 Santyl - TP 1 applic DAILY GLORY Administration Protocol Docusate Sodium 200 mg 06/14/19 19:33 06/14/19 21:18 Colace Liquid - PO 200 mg DAILY PRN Administration CONSTIPATION Heparin Sodium (Porcine) 5,000 unit 06/12/19 14:00 06/15/19 06:03 Heparin - SQ 5,000 unit TID GLORY Administration Cefazolin Sodium/Dextrose 2 gm in 50 mls @ 100 mls/hr 06/03/19 10:30 10:02 Ancef 2 Gm Premixed Ivpb - IVPB 100 mls/hr Q8H-IV GLORY Administration Amino Acids 1,000 mls @ 42 mls/hr 06/09/19 14:15 06/14/19 17:28 Clinimix - IV 42 mls/hr Q24H GLORY Administration ASSESSMENT/PLAN: Ms. Rust is an 89y/o female (hospice patient prior to admission) with dementia , HTN, recurrent UTI, constipation, hypothyroidism, and malnutrition who presents with increased weakness and lethargy. Pt was admitted for severe sepsis 2/2 UTI and bacteremia. 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, improved -last set of blood cx now negative 05/24 -Cefazolin 2gm Q8H, continue for 6 weeks after negative cx #stage 4 decubitus ulcer, sacral and right trochanteric -drainage present but does not need to be cultured -continue abx -monitor #severe dehydration and malnutrition, improved -dextrose PRN with BGM -dysphagia diet -Clinimix 42mL/hr -dietary following #hypophosphatemia -PO phos -monitor #constipation -colace 200mg daily PRN -miralax #microcytic anemia s/p 1 unit PRBCs -monitor #hyperchloridemia, resolved #hypokalemia, resolved #hypernatremia, resolved #hypomagnesemia, resolved #oral thrush, resolved DVT Ppx heparin FEN PO fluids/ Clinimix 42mL/hr dysphagia puree diet code status DNR/DNI dispo waiting on placement Visit type - Emergency Visit Emergency Visit: Yes ED Registration Date: 05/18/19 Care time: The patient presented to the Emergency Department on the above date and was hospitalized for further evaluation of their emergent condition. - New Patient This patient is new to me today: No - Critical Care Critical Care patient: No - Discharge Referral Referred to [facility] Med P.C.: No ATTENDING PHYSICIAN STATEMENT I saw and evaluated the patient. I reviewed the resident's note and discussed the case with the resident. I agree with the resident's findings and plan as documented. SUBJECTIVE: OBJECTIVE: ASSESSMENT AND PLAN:
--- NOTE | 2019-06-15 13:57 | PN ---
Teaching Attending Note Name of Resident: Padmaja Henderson ATTENDING PHYSICIAN STATEMENT I saw and evaluated the patient. I reviewed the resident's note and discussed the case with the resident. I agree with the resident's findings and plan as documented. SUBJECTIVE: no events over night OBJECTIVE: MMM. Opens eyes but non verbal. CV: RRR. Lungs: decreased breath sounds at bases Abd: Softer comapred to yesterday , NT. less distended today . NL BS Ext: 2+ pitting edema on legs, feet 3+. A/p 1- Severe sepsis: improved 2- MSSA bacteremia: cleared 3- Endocarditis 4- hypotension: improved 5- Stage 4 Decub ulcer 6- Severe protein calorie malnutrition . 7- Cachexia 8- hypernatremia: resolved 9- Klebsiella UTI 10- Anemia Plan: - cont clinimix - cont cefazoline. d/w Dr. Ha. she needs total of 6 weeks. today day - cont diet - SQ for DVT px - bowel regimen. responded to enema yesterday. will repeat today - No new cx was recommended by ID placement is pending
[2019-06-15] MEDS: NAPH,MB-DB/K PH,MBDB POWDER PACKET PO SCH ×2 (14:13→23:10)
[2019-06-15 14:51] VITALS: BMI 21.5
[2019-06-15] MEDS: COLLAGENASE CLOSTRIDIUM HIST. 30 GRAMS TUBE TP SCH (17:40)
[2019-06-15] MEDS: AMINO ACIDS 4.25%/D5W 1,000 ML IV SCH (17:40)
[2019-06-16] MEDS: CEFAZOLIN 2 GM/D5W 2 GM/50 ML ML IVPB SCH ×3 (03:00→17:46)
[2019-06-16] MEDS: HEPARIN NA (PORCINE) 5,000 UNITS/ML 1ML VIAL SQ SCH ×3 (06:16→21:33)
[2019-06-16 07:47] LABS: BASO % 0.7 % (0-2.0); EOS % 1.8 % (0-4.5); HEMATOCRIT 21.4 % (32.4-45.2); HEMOGLOBIN 7.1 GM/dL (10.7-15.3); LYMPH % 13.2 % (8-40); MCH 26.4 pg (25.7-33.7); MEAN PLT VOLUME 7.9 fl (7.5-11.1); MONO % 5.3 % (3.8-10.2); PLATELET COUNT 376 K/MM3 (134-434); RBC 2.67 M/mm3 (3.60-5.2); RDW 17.2 % (11.6-15.6); WHITE BLOOD COUNT 8.9 K/mm3 (4.0-10.0)
[2019-06-16 07:56] LABS: ALBUMIN 1.4 g/dl (3.4-5.0); ALK PHOS 71 U/L (45-117); ANION GAP 4 MMOL/L (8-16); BILIRUBIN,TOTAL < 0.1 mg/dL (0.2-1); BLOOD UREA NITROGEN 18.8 mg/dL (7-18); CALCIUM 7.5 mg/dL (8.5-10.1); CHLORIDE 106 mmol/L (98-107); CO2 29 mmol/L (21-32); CREATININE 0.4 mg/dL (0.55-1.3); GLUCOSE,RANDOM 79 mg/dL (74-106); MAGNESIUM 1.8 mg/dL (1.8-2.4); PHOSPHOROUS 2.6 mg/dL (2.5-4.9); POTASSIUM 3.9 mmol/L (3.5-5.1); SGOT/AST 14 U/L (15-37); SGPT/ALT < 6 U/L (13-61); SODIUM 140 mmol/L (136-145); TOT PROT 3.9 g/dl (6.4-8.2)
[2019-06-16] MEDS: COLLAGENASE CLOSTRIDIUM HIST. 30 GRAMS TUBE TP SCH (10:28)
[2019-06-16] MEDS: POLYETHYLENE GLYCOL 3350 119 GM BTL PO SCH (10:28)
--- NOTE | 2019-06-16 12:07 | PN ---
Progress Note, [employer] - Note Progress Note: Selected Entries 06/15/19 06/15/19 06/15/19 00:00 06:05 15:35 Breakfast 25% Lunch 75% Supper Temperature 98.5 F 98.3 F 98.5 F Pulse Rate 06/15/19 06/15/19 06/16/19 18:00 22:00 06:00 Breakfast Lunch Supper 100% Temperature 98.1 F 98.8 F Pulse Rate 83 06/16/19 10:31 Breakfast Lunch Supper Temperature Pulse Rate 86 Laboratory Tests 06/15/19 06/16/19 07:09 06:50 WBC 11.3 H 8.9 Doing quite w3ell with PO diet. Encourage PO hydration throughout the day and supplements.
[2019-06-16] MEDS: AMINO ACIDS 4.25%/D5W 1,000 ML IV SCH (15:32)
--- NOTE | 2019-06-16 16:43 | PN ---
Physical Exam: SUBJECTIVE: Patient seen and examined. Non-verbal. OBJECTIVE: Vital Signs Period Temp Pulse Resp BP Sys/Chinchilla Pulse Ox Last 24 Hr 98.1 F-99.2 F 82-92 16-22 85-124/48-67 99 GENERAL: Awake and alert, not in distress. Makes eye contact. Sitting up in bed. HEAD: Normal with no signs of trauma. Tooth loss. EYES: Conjunctiva clear. ENT: Ears normal, nares patent, moist mucous membranes NECK: Trachea midline LUNGS: Clear to auscultation bilaterally, no wheezes HEART: Regular rate and rhythm, 3/6 systolic murmur ABDOMEN: Distended, non-tender on palpation, hypoactive bowel sounds BACK: stage 4 sacral ulcer and right trochanteric ulcer bandaged EXTREMITIES: well-perfused, +2 pitting edema b/l feet, right arm PICC with no erythema NEUROLOGICAL: Cannot be assessed. PSYCH: Cannot be assessed. SKIN: Warm, dry Laboratory Results - last 24 hr 06/15/19 06/16/19 06/16/19 18:10 06:10 06:50 WBC 8.9 RBC 2.67 L Hgb 7.1 L Hct 21.4 L MCV 80.0 MCH 26.4 MCHC 33.0 RDW 17.2 H Plt Count 376 MPV 7.9 Absolute Neuts (auto) 7.0 Neutrophils % 79.0 Lymphocytes % 13.2 Monocytes % 5.3 Eosinophils % 1.8 Basophils % 0.7 Nucleated RBC % 0 Sodium Potassium Chloride Carbon Dioxide Anion Gap BUN Creatinine Est GFR (CKD-EPI)AfAm Est GFR (CKD-EPI)NonAf POC Glucometer 105 83 Random Glucose Calcium Phosphorus Magnesium Total Bilirubin AST ALT Alkaline Phosphatase Total Protein Albumin 06/16/19 06:50 WBC RBC Hgb Hct MCV MCH MCHC RDW Plt Count MPV Absolute Neuts (auto) Neutrophils % Lymphocytes % Monocytes % Eosinophils % Basophils % Nucleated RBC % Sodium 140 Potassium 3.9 Chloride 106 Carbon Dioxide 29 Anion Gap 4 L BUN 18.8 H Creatinine 0.4 L Est GFR (CKD-EPI)AfAm 107.03 Est GFR (CKD-EPI)NonAf 92.34 POC Glucometer Random Glucose 79 Calcium 7.5 L Phosphorus 2.6 Magnesium 1.8 Total Bilirubin < 0.1 L AST 14 L ALT < 6 L Alkaline Phosphatase 71 Total Protein 3.9 L Albumin 1.4 L Active Medications Generic Name Dose Route Start Last Admin Trade Name Freq PRN Reason Stop Dose Admin Acetaminophen 750 mg 05/23/19 11:32 06/15/19 10:01 Ofirmev Injection - IVPB 750 mg Q6H PRN Administration PAIN LEVEL 6-10 Collagenase 1 applic 05/18/19 16:00 06/16/19 10:28 Santyl - TP 1 applic DAILY GLORY Administration Protocol Docusate Sodium 200 mg 06/14/19 19:33 06/14/19 21:18 Colace Liquid - PO 200 mg DAILY PRN Administration CONSTIPATION Heparin Sodium (Porcine) 5,000 unit 06/12/19 14:00 06/16/19 15:32 Heparin - SQ 5,000 unit TID GLORY Administration Cefazolin Sodium/Dextrose 2 gm in 50 mls @ 100 mls/hr 06/03/19 10:30 10:27 Ancef 2 Gm Premixed Ivpb - IVPB 100 mls/hr Q8H-IV GLORY Administration Amino Acids 1,000 mls @ 42 mls/hr 06/09/19 14:15 06/16/19 15:32 Clinimix - IV 42 mls/hr Q24H GLORY Administration Polyethylene Glycol 17 gm 06/16/19 10:00 06/16/19 10:28 Miralax (For Daily Use) - PO 17 gm DAILY GLORY Administration ASSESSMENT/PLAN: Ms. Rust is an 89y/o female (hospice patient prior to admission) with dementia , HTN, recurrent UTI, constipation, hypothyroidism, and malnutrition who presents with increased weakness and lethargy. Pt was admitted for severe sepsis 2/2 UTI and bacteremia. 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, improved -last set of blood cx now negative 05/24 -Cefazolin 2gm Q8H, continue for 6 weeks after negative cx (07/04/19) #stage 4 decubitus ulcer, sacral and right trochanteric -drainage present but does not need to be cultured -continue abx -monitor #severe dehydration and malnutrition, improved -dextrose PRN with BGM -dysphagia diet -Clinimix 42mL/hr- will stop and assess blood pressure and PO intake -dietary following #hypophosphatemia, resolved -monitor #constipation -colace 200mg daily PRN -miralax -abdominal exams #microcytic anemia s/p 1 unit PRBCs -monitor #hyperchloridemia, resolved #hypokalemia, resolved #hypernatremia, resolved #hypomagnesemia, resolved #oral thrush, resolved DVT Ppx heparin FEN PO fluids/ Clinimix 42mL/hr dysphagia puree diet code status DNR/DNI dispo waiting on placement Visit type - Emergency Visit Emergency Visit: Yes ED Registration Date: 05/18/19 Care time: The patient presented to the Emergency Department on the above date and was hospitalized for further evaluation of their emergent condition. - New Patient This patient is new to me today: No - Critical Care Critical Care patient: No - Discharge Referral Referred to [facility] Med P.C.: No ATTENDING PHYSICIAN STATEMENT I saw and evaluated the patient. I reviewed the resident's note and discussed the case with the resident. I agree with the resident's findings and plan as documented. SUBJECTIVE: OBJECTIVE: ASSESSMENT AND PLAN:
--- NOTE | 2019-06-16 18:14 | PN ---
Teaching Attending Note Name of Resident: Padmaja Henderson ATTENDING PHYSICIAN STATEMENT I saw and evaluated the patient. I reviewed the resident's note and discussed the case with the resident. I agree with the resident's findings and plan as documented. SUBJECTIVE: Patient is comfortable with no acute distress. Vital Signs Temperature 98.5 F 06/16/19 15:56 Pulse Rate 82 06/16/19 15:56 Respiratory Rate 22 H 06/16/19 15:56 Blood Pressure 103/55 L 06/16/19 15:56 O2 Sat by Pulse Oximetry (%) 99 06/15/19 21:00 GENERAL: The patient is nonverbal, contracted, but comfortable, cachectic HEAD: Normal with no signs of trauma. EYES: PERRL, EOMI, sclera anicteric, conjunctiva clear. ENT: Ears normal, dry mucus membrane , dry skin NECK: Trachea midline, full range of motion, supple. LUNGS: decreased Breath sounds bl , no wheezes, no crackles, no accessory muscle use. HEART: Regular rate and rhythm, S1, S2 positive, SHIMON 2/6 , no rub or gallop. ABDOMEN: Soft, NT,ND, normoactive bowel sounds, no guarding, no rebound, no hepatosplenomegaly, no masses. EXTREMITIES: 2+ pulses, warm, contracted LE , + edema 2+ NEUROLOGICAL: Cranial nerves II through XII grossly intact. gait not observed. PSYCH: non verbal , skin: Warm ,dry skin decub ulcer, stage 4, no discharge , no erythema , drainage from the right hip area CBCD WBC 8.9 K/mm3 (4.0-10.0) 06/16/19 06:50 RBC 2.67 M/mm3 (3.60-5.2) L 06/16/19 06:50 Hgb 7.1 GM/dL (10.7-15.3) L 06/16/19 06:50 Hct 21.4 % (32.4-45.2) L 06/16/19 06:50 MCV 80.0 fl (80-96) 06/16/19 06:50 MCHC 33.0 g/dl (32.0-36.0) 06/16/19 06:50 RDW 17.2 % (11.6-15.6) H 06/16/19 06:50 Plt Count 376 K/MM3 (134-434) 06/16/19 06:50 MPV 7.9 fl (7.5-11.1) 06/16/19 06:50 CMP Sodium 140 mmol/L (136-145) 06/16/19 06:50 Potassium 3.9 mmol/L (3.5-5.1) 06/16/19 06:50 Chloride 106 mmol/L (98-107) 06/16/19 06:50 Carbon Dioxide 29 mmol/L (21-32) 06/16/19 06:50 Anion Gap 4 MMOL/L (8-16) L 06/16/19 06:50 BUN 18.8 mg/dL (7-18) H 06/16/19 06:50 Creatinine 0.4 mg/dL (0.55-1.3) L 06/16/19 06:50 Random Glucose 79 mg/dL (74-106) 06/16/19 06:50 Calcium 7.5 mg/dL (8.5-10.1) L 06/16/19 06:50 Total Bilirubin < 0.1 mg/dL (0.2-1) L 06/16/19 06:50 AST 14 U/L (15-37) L 06/16/19 06:50 ALT < 6 U/L (13-61) L 06/16/19 06:50 Alkaline Phosphatase 71 U/L (45-117) 06/16/19 06:50 Total Protein 3.9 g/dl (6.4-8.2) L 06/16/19 06:50 Albumin 1.4 g/dl (3.4-5.0) L 06/16/19 06:50 Home Medications Medication Instructions Recorded Levothyroxine [Synthroid -] 50 mcg PO DAILY 06/21/14 Ranitidine [Zantac -] 150 mg PO BID #30 tablet 07/16/18 Cefazolin 2 gm/D5w [Ancef 2 gm 2 gm IVPB Q8H 16 Days ml 06/04/19 Premixed Ivpb -] Collagenase Clostridium Hist. 1 applic TP DAILY tube 06/04/19 [Santyl -] Current Medications Generic Name Dose Route Start Last Admin Trade Name Freq PRN Reason Stop Dose Admin Acetaminophen 750 mg 05/23/19 11:32 06/15/19 10:01 Ofirmev Injection - IVPB 750 mg Q6H PRN Administration PAIN LEVEL 6-10 Collagenase 1 applic 05/18/19 16:00 06/16/19 10:28 Santyl - TP 1 applic DAILY GLORY Administration Protocol Docusate Sodium 200 mg 06/14/19 19:33 06/14/19 21:18 Colace Liquid - PO 200 mg DAILY PRN Administration CONSTIPATION Heparin Sodium (Porcine) 5,000 unit 06/12/19 14:00 06/16/19 15:32 Heparin - SQ 5,000 unit TID GLORY Administration Cefazolin Sodium/Dextrose 2 gm in 50 mls @ 100 mls/hr 06/03/19 10:30 17:46 Ancef 2 Gm Premixed Ivpb - IVPB 100 mls/hr Q8H-IV GLORY Administration Amino Acids 1,000 mls @ 42 mls/hr 06/09/19 14:15 06/16/19 15:32 Clinimix - IV 42 mls/hr Q24H GLORY Administration Polyethylene Glycol 17 gm 06/16/19 10:00 06/16/19 10:28 Miralax (For Daily Use) - PO 17 gm DAILY GLORY Administration Microbiology 05/24/19 11:20 Blood - Peripheral Venous Blood Culture - Final NO GROWTH AFTER 5 DAYS INCUBATION 05/24/19 10:00 Blood - Peripheral Venous Blood Culture - Final NO GROWTH AFTER 5 DAYS INCUBATION 05/21/19 07:20 Blood - Peripheral Venous Blood Culture - Final Staphylococcus Aureus 05/21/19 07:10 Blood - Peripheral Venous Blood Culture - Final Staphylococcus Aureus 05/19/19 12:05 Buttock - Right Gram Stain - Final 05/19/19 12:05 Buttock - Right Wound Culture - Final Escherichia Coli Pseudomonas Aeruginosa Staphylococcus Coagulase Neg Enterococcus Faecalis Proteus Mirabilis 05/17/19 22:32 Blood - Peripheral Venous Blood Culture - Final Staphylococcus Aureus 05/18/19 18:15 Blood - Peripheral Venous Blood Culture - Final Staphylococcus Aureus 05/18/19 18:00 Blood - Peripheral Venous Blood Culture - Final Staphylococcus Aureus 05/18/19 00:17 Urine - Urine Clean Catch Urine Culture - Final Klebsiella Pneumoniae 05/17/19 22:32 Blood - Peripheral Venous Blood Culture - Final Staphylococcus Aureus Assessment and plan: Patient is an 89 y/o with home hospice was brought in by the family member due to increased lethargy. she was supposedly on home Hospice care but family brought her here. # Severe sepsis: improved , continue IV antibiotics # MSSA bacteremia: cleared ,cont cefazolin needs total of 6 weeks. today day # Endocarditis # hypotension: improved # Stage 4 Decub ulcer # Severe protein calorie malnutrition . # Cachexia : cont clinimix # hypernatremia: resolved # Klebsiella UTI #- Anemia cont diet DVT Px: hep SQ bowel enema No new cx was recommended by ID placement is pending
[2019-06-17] MEDS: CEFAZOLIN 2 GM/D5W 2 GM/50 ML ML IVPB SCH ×3 (02:50→17:17)
[2019-06-17] MEDS: HEPARIN NA (PORCINE) 5,000 UNITS/ML 1ML VIAL SQ SCH ×3 (06:09→22:02)
[2019-06-17 08:42] LABS: BASO % 0.3 % (0-2.0); EOS % 1.9 % (0-4.5); HEMATOCRIT 20.7 % (32.4-45.2); LYMPH % 15.1 % (8-40); MCH 27.1 pg (25.7-33.7); MCHC 33.7 g/dl (32.0-36.0); MEAN CELL VOLUME 80.2 fl (80-96); MEAN PLT VOLUME 8.1 fl (7.5-11.1); MONO % 6.7 % (3.8-10.2); PLATELET COUNT 385 K/MM3 (134-434); RBC 2.57 M/mm3 (3.60-5.2); RDW 17.6 % (11.6-15.6); WHITE BLOOD COUNT 8.8 K/mm3 (4.0-10.0)
[2019-06-17 09:05] LABS: ALBUMIN 1.4 g/dl (3.4-5.0); ALK PHOS 71 U/L (45-117); ANION GAP 5 MMOL/L (8-16); BILIRUBIN,TOTAL < 0.1 mg/dL (0.2-1); BLOOD UREA NITROGEN 21.3 mg/dL (7-18); CALCIUM 7.3 mg/dL (8.5-10.1); CHLORIDE 108 mmol/L (98-107); CO2 29 mmol/L (21-32); CREATININE 0.4 mg/dL (0.55-1.3); GLUCOSE,RANDOM 77 mg/dL (74-106); MAGNESIUM 1.7 mg/dL (1.8-2.4); PHOSPHOROUS 2.3 mg/dL (2.5-4.9); SGOT/AST 13 U/L (15-37); SGPT/ALT < 6 U/L (13-61); SODIUM 141 mmol/L (136-145); TOT PROT 3.9 g/dl (6.4-8.2)
--- NOTE | 2019-06-17 09:13 | PN ---
Physical Exam: SUBJECTIVE: Patient seen and examined. Pt is non-verbal. OBJECTIVE: Vital Signs Period Temp Pulse Resp BP Sys/Chinchilla Pulse Ox Last 24 Hr 98.2 F-99.2 F 80-101 16-22 85-117/48-60 99 GENERAL: Awake and alert, not in distress. HEAD: Normal with no signs of trauma. Tooth loss. EYES: Conjunctiva clear. EOM intact. ENT: Ears normal, nares patent, moist mucous membranes NECK: Trachea midline LUNGS: Clear to auscultation bilaterally, no wheezes HEART: Regular rate and rhythm, 3/6 systolic murmur ABDOMEN: Distended, non-tender on palpation, hypoactive bowel sounds BACK: stage 4 sacral ulcer and right trochanteric ulcer bandaged EXTREMITIES: well-perfused, +2 pitting edema b/l feet, right arm PICC with no erythema, arms contracted NEUROLOGICAL: Cannot be assessed. PSYCH: Cannot be assessed. SKIN: Warm, dry Laboratory Results - last 24 hr 06/17/19 06/17/19 06/17/19 06:12 07:00 07:00 WBC 8.8 RBC 2.57 L Hgb 7.0 L Hct 20.7 L MCV 80.2 MCH 27.1 MCHC 33.7 RDW 17.6 H Plt Count 385 MPV 8.1 Absolute Neuts (auto) 6.7 Neutrophils % 76.0 Lymphocytes % 15.1 Monocytes % 6.7 Eosinophils % 1.9 Basophils % 0.3 Nucleated RBC % 0 Sodium 141 Potassium 4.0 Chloride 108 H Carbon Dioxide 29 Anion Gap 5 L BUN 21.3 H Creatinine 0.4 L Est GFR (CKD-EPI)AfAm 107.03 Est GFR (CKD-EPI)NonAf 92.34 POC Glucometer 92 Random Glucose 77 Calcium 7.3 L Phosphorus 2.3 L Magnesium 1.7 L Total Bilirubin < 0.1 L AST 13 L ALT < 6 L Alkaline Phosphatase 71 Total Protein 3.9 L Albumin 1.4 L Active Medications Generic Name Dose Route Start Last Admin Trade Name Freq PRN Reason Stop Dose Admin Acetaminophen 750 mg 05/23/19 11:32 06/15/19 10:01 Ofirmev Injection - IVPB 750 mg Q6H PRN Administration PAIN LEVEL 6-10 Collagenase 1 applic 05/18/19 16:00 06/16/19 10:28 Santyl - TP 1 applic DAILY GLORY Administration Protocol Docusate Sodium 200 mg 06/14/19 19:33 06/14/19 21:18 Colace Liquid - PO 200 mg DAILY PRN Administration CONSTIPATION Heparin Sodium (Porcine) 5,000 unit 06/12/19 14:00 06/17/19 06:09 Heparin - SQ 5,000 unit TID GLORY Administration Cefazolin Sodium/Dextrose 2 gm in 50 mls @ 100 mls/hr 06/03/19 10:30 02:50 Ancef 2 Gm Premixed Ivpb - IVPB 100 mls/hr Q8H-IV GLORY Administration Polyethylene Glycol 17 gm 06/16/19 10:00 06/16/19 10:28 Miralax (For Daily Use) - PO 17 gm DAILY GLORY Administration ASSESSMENT/PLAN: Ms. Rust is an 89y/o female (hospice patient prior to admission) with dementia , HTN, recurrent UTI, constipation, hypothyroidism, and malnutrition who presents with increased weakness and lethargy. Pt was admitted for severe sepsis 2/2 UTI and bacteremia. 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, improved -last set of blood cx now negative 05/24 -Cefazolin 2gm Q8H, continue for 6 weeks after negative cx (07/04/19 end date) #stage 4 decubitus ulcer, sacral and right trochanteric -drainage present but does not need to be cultured -continue abx -monitor #severe dehydration and malnutrition, improved -dextrose PRN with BGM -dysphagia diet -Clinimix 42mL/hr d/c'ed -dietary following #hypophosphatemia, resolved -monitor #constipation -colace 200mg daily PRN -miralax -abdominal exams #microcytic anemia s/p 1 unit PRBCs -monitor #hyperchloridemia, resolved #hypokalemia, resolved #hypernatremia, resolved #hypomagnesemia, resolved #oral thrush, resolved DVT Ppx heparin FEN PO fluids dysphagia puree diet code status DNR/DNI dispo waiting on placement Visit type - Emergency Visit Emergency Visit: Yes ED Registration Date: 05/18/19 Care time: The patient presented to the Emergency Department on the above date and was hospitalized for further evaluation of their emergent condition. - New Patient This patient is new to me today: No - Critical Care Critical Care patient: No - Discharge Referral Referred to [facility] No ATTENDING PHYSICIAN STATEMENT I saw and evaluated the patient. I reviewed the resident's note and discussed the case with the resident. I agree with the resident's findings and plan as documented. SUBJECTIVE: OBJECTIVE: ASSESSMENT AND PLAN:
[2019-06-17] MEDS: COLLAGENASE CLOSTRIDIUM HIST. 30 GRAMS TUBE TP SCH (09:51)
[2019-06-17] MEDS: POLYETHYLENE GLYCOL 3350 119 GM BTL PO SCH (09:51)
[2019-06-17] MEDS ORDERED: MAGNESIUM SULF 50% (8.12 MEQ/2 ML-1 GM VIAL) IVPB ONE (11:30)
[2019-06-17] MEDS: NAPH,MB-DB/K PH,MBDB POWDER PACKET PO SCH ×2 (11:43→22:02)
--- NOTE | 2019-06-17 19:24 | PN ---
Teaching Attending Note Name of Resident: Padmaja Henderson ATTENDING PHYSICIAN STATEMENT I saw and evaluated the patient. I reviewed the resident's note and discussed the case with the resident. I agree with the resident's findings and plan as documented. SUBJECTIVE: Patient is comfortable with no acute distress. Vital Signs Temperature 98.5 F 06/17/19 18:00 Pulse Rate 84 06/17/19 18:00 Respiratory Rate 20 06/17/19 18:00 Blood Pressure 110/59 L 06/17/19 18:00 O2 Sat by Pulse Oximetry (%) 97 06/17/19 09:00 GENERAL: The patient is nonverbal, contracted, but comfortable, cachectic HEAD: Normal with no signs of trauma. EYES: PERRL, EOMI, sclera anicteric, conjunctiva clear. ENT: Ears normal, dry mucus membrane , dry skin NECK: Trachea midline, full range of motion, supple. LUNGS: decreased Breath sounds bl , no wheezes, no crackles, no accessory muscle use. HEART: Regular rate and rhythm, S1, S2 positive, SHIMON 2/6 , no rub or gallop. ABDOMEN: Soft, NT,ND, normoactive bowel sounds, no guarding, no rebound, no hepatosplenomegaly, no masses. EXTREMITIES: 2+ pulses, warm, contracted LE , + edema 2+ NEUROLOGICAL: Cranial nerves II through XII grossly intact. gait not observed. PSYCH: non verbal , skin: Warm ,dry skin decub ulcer, stage 4, positive for minimal discharge , no erythema , drainage from the right hip area CBCD WBC 8.8 K/mm3 (4.0-10.0) 06/17/19 07:00 RBC 2.57 M/mm3 (3.60-5.2) L 06/17/19 07:00 Hgb 7.0 GM/dL (10.7-15.3) L 06/17/19 07:00 Hct 20.7 % (32.4-45.2) L 06/17/19 07:00 MCV 80.2 fl (80-96) 06/17/19 07:00 MCHC 33.7 g/dl (32.0-36.0) 06/17/19 07:00 RDW 17.6 % (11.6-15.6) H 06/17/19 07:00 Plt Count 385 K/MM3 (134-434) 06/17/19 07:00 MPV 8.1 fl (7.5-11.1) 06/17/19 07:00 CMP Sodium 141 mmol/L (136-145) 06/17/19 07:00 Potassium 4.0 mmol/L (3.5-5.1) 06/17/19 07:00 Chloride 108 mmol/L (98-107) H 06/17/19 07:00 Carbon Dioxide 29 mmol/L (21-32) 06/17/19 07:00 Anion Gap 5 MMOL/L (8-16) L 06/17/19 07:00 BUN 21.3 mg/dL (7-18) H 06/17/19 07:00 Creatinine 0.4 mg/dL (0.55-1.3) L 06/17/19 07:00 Random Glucose 77 mg/dL (74-106) 06/17/19 07:00 Calcium 7.3 mg/dL (8.5-10.1) L 06/17/19 07:00 Total Bilirubin < 0.1 mg/dL (0.2-1) L 06/17/19 07:00 AST 13 U/L (15-37) L 06/17/19 07:00 ALT < 6 U/L (13-61) L 06/17/19 07:00 Alkaline Phosphatase 71 U/L (45-117) 06/17/19 07:00 Total Protein 3.9 g/dl (6.4-8.2) L 06/17/19 07:00 Albumin 1.4 g/dl (3.4-5.0) L 06/17/19 07:00 Current Medications Generic Name Dose Route Start Last Admin Trade Name Freq PRN Reason Stop Dose Admin Acetaminophen 750 mg 05/23/19 11:32 06/15/19 10:01 Ofirmev Injection - IVPB 750 mg Q6H PRN Administration PAIN LEVEL 6-10 Collagenase 1 applic 05/18/19 16:00 06/17/19 09:51 Santyl - TP 1 applic DAILY GLORY Administration Protocol Docusate Sodium 200 mg 06/14/19 19:33 06/14/19 21:18 Colace Liquid - PO 200 mg DAILY PRN Administration CONSTIPATION Heparin Sodium (Porcine) 5,000 unit 06/12/19 14:00 06/17/19 13:23 Heparin - SQ 5,000 unit TID GLORY Administration Cefazolin Sodium/Dextrose 2 gm in 50 mls @ 100 mls/hr 06/03/19 10:30 17:17 Ancef 2 Gm Premixed Ivpb - IVPB 100 mls/hr Q8H-IV GLORY Administration Polyethylene Glycol 17 gm 06/16/19 10:00 06/17/19 09:51 Miralax (For Daily Use) - PO 17 gm DAILY GLORY Administration Potassium Phos/Sodium Phos 1 packet 06/17/19 11:15 06/17/19 11:43 Phos-Nak Packet - PO 06/17/19 22:01 1 packet BID GLORY Administration Home Medications Medication Instructions Recorded Levothyroxine [Synthroid -] 50 mcg PO DAILY 06/21/14 Ranitidine [Zantac -] 150 mg PO BID #30 tablet 07/16/18 Cefazolin 2 gm/D5w [Ancef 2 gm 2 gm IVPB Q8H 16 Days ml 06/04/19 Premixed Ivpb -] Collagenase Clostridium Hist. 1 applic TP DAILY tube 06/04/19 [Santyl -] Microbiology 05/24/19 11:20 Blood - Peripheral Venous Blood Culture - Final NO GROWTH AFTER 5 DAYS INCUBATION 05/24/19 10:00 Blood - Peripheral Venous Blood Culture - Final NO GROWTH AFTER 5 DAYS INCUBATION 05/21/19 07:20 Blood - Peripheral Venous Blood Culture - Final Staphylococcus Aureus 05/21/19 07:10 Blood - Peripheral Venous Blood Culture - Final Staphylococcus Aureus 05/19/19 12:05 Buttock - Right Gram Stain - Final 05/19/19 12:05 Buttock - Right Wound Culture - Final Escherichia Coli Pseudomonas Aeruginosa Staphylococcus Coagulase Neg Enterococcus Faecalis Proteus Mirabilis 05/17/19 22:32 Blood - Peripheral Venous Blood Culture - Final Staphylococcus Aureus 05/18/19 18:15 Blood - Peripheral Venous Blood Culture - Final Staphylococcus Aureus 05/18/19 18:00 Blood - Peripheral Venous Blood Culture - Final Staphylococcus Aureus 05/18/19 00:17 Urine - Urine Clean Catch Urine Culture - Final Klebsiella Pneumoniae 05/17/19 22:32 Blood - Peripheral Venous Blood Culture - Final Staphylococcus Aureus Assessment and plan: Patient is an 89 y/o with home hospice was brought in by the family member due to increased lethargy. she was supposedly on home Hospice care but family brought her here. # Severe sepsis: improved , continue IV antibiotics # MSSA bacteremia: cleared ,cont cefazolin needs total of 6 weeks. today day # hypotension: improved # Stage 4 Decub ulcer # Severe protein calorie malnutrition . # Cachexia : cont clinimix # hypernatremia: resolved # Klebsiella UTI #- Anemia cont diet DVT Px: hep SQ bowel enema No new cx was recommended by ID placement is pending
[2019-06-18] MEDS: CEFAZOLIN 2 GM/D5W 2 GM/50 ML ML IVPB SCH ×3 (01:42→17:01)
[2019-06-18] MEDS: HEPARIN NA (PORCINE) 5,000 UNITS/ML 1ML VIAL SQ SCH ×3 (06:26→21:49)
[2019-06-18 08:32] LABS: BASO % 1.3 % (0-2.0); EOS % 1.5 % (0-4.5); HEMATOCRIT 21.1 % (32.4-45.2); LYMPH % 10.7 % (8-40); MCH 26.1 pg (25.7-33.7); MCHC 32.7 g/dl (32.0-36.0); MEAN PLT VOLUME 7.9 fl (7.5-11.1); NEUT % 80.5 % (42.8-82.8); PLATELET COUNT 410 K/MM3 (134-434); RBC 2.63 M/mm3 (3.60-5.2); RDW 17.6 % (11.6-15.6); WHITE BLOOD COUNT 9.5 K/mm3 (4.0-10.0)
[2019-06-18 08:52] LABS: BLOOD UREA NITROGEN 16.2 mg/dL (7-18); CREATININE 0.4 mg/dL (0.55-1.3); GLUCOSE,RANDOM 68 mg/dL (74-106); SODIUM 142 mmol/L (136-145)
[2019-06-18 08:53] LABS: ALBUMIN 1.3 g/dl (3.4-5.0); ALK PHOS 75 U/L (45-117); ANION GAP 7 MMOL/L (8-16); BILIRUBIN,TOTAL 0.3 mg/dL (0.2-1); CALCIUM 7.8 mg/dL (8.5-10.1); CHLORIDE 107 mmol/L (98-107); CO2 28 mmol/L (21-32); MAGNESIUM 2.1 mg/dL (1.8-2.4); PHOSPHOROUS 3.3 mg/dL (2.5-4.9); SGOT/AST 12 U/L (15-37); SGPT/ALT < 6 U/L (13-61); TOT PROT 3.8 g/dl (6.4-8.2)
[2019-06-18 08:59] LABS: HEMOGLOBIN 6.9 GM/dL (10.7-15.3)
[2019-06-18] MEDS: DOCUSATE NA 100 MG/10 ML UNIT-DOSE CUPS PO PRN (10:17)
[2019-06-18] MEDS: POLYETHYLENE GLYCOL 3350 119 GM BTL PO SCH (10:17)
[2019-06-18] MEDS ORDERED: FUROSEMIDE 40 MG/4 ML INJECTABLE VIAL IVPUSH ONE (13:00)
--- NOTE | 2019-06-18 13:58 | PN ---
Physical Exam: SUBJECTIVE: Patient seen and examined. Pt is non-verbal. OBJECTIVE: Vital Signs Period Temp Pulse Resp BP Sys/Chinchilla Pulse Ox Last 24 Hr 98.3 F-98.5 F 75-90 18-20 101-129/55-62 98-100 GENERAL: Awake and alert, not in distress. HEAD: Normal with no signs of trauma. Tooth loss. EYES: Conjunctiva clear. EOM intact. ENT: Ears normal, nares patent, moist mucous membranes NECK: Trachea midline LUNGS: Clear to auscultation bilaterally, no wheezes HEART: Regular rate and rhythm, 3/6 systolic murmur ABDOMEN: Distended, non-tender on palpation, hypoactive bowel sounds BACK: stage 4 sacral ulcer and right trochanteric ulcer bandaged EXTREMITIES: well-perfused, +2 pitting edema b/l feet, right arm PICC with no erythema, arms contracted NEUROLOGICAL: Cannot be assessed. PSYCH: Cannot be assessed. SKIN: Warm, dry Laboratory Results - last 24 hr 06/17/19 06/18/19 06/18/19 21:00 05:29 06:00 WBC RBC Hgb Hct MCV MCH MCHC RDW Plt Count MPV Absolute Neuts (auto) Neutrophils % Lymphocytes % Monocytes % Eosinophils % Basophils % Nucleated RBC % Sodium 142 Potassium 4.0 Chloride 107 Carbon Dioxide 28 Anion Gap 7 L BUN 16.2 Creatinine 0.4 L Est GFR (CKD-EPI)AfAm 107.03 Est GFR (CKD-EPI)NonAf 92.34 POC Glucometer 80 75 Random Glucose 68 L Calcium 7.8 L Phosphorus 3.3 Magnesium 2.1 Total Bilirubin 0.3 AST 12 L ALT < 6 L Alkaline Phosphatase 75 Total Protein 3.8 L Albumin 1.3 L Blood Type Antibody Screen Crossmatch 06/18/19 06/18/19 06/18/19 06:30 09:30 11:35 WBC 9.5 RBC 2.63 L Hgb 6.9 L* Hct 21.1 L MCV 80.0 MCH 26.1 MCHC 32.7 RDW 17.6 H Plt Count 410 MPV 7.9 Absolute Neuts (auto) 7.6 Neutrophils % 80.5 Lymphocytes % 10.7 D Monocytes % 6.0 Eosinophils % 1.5 Basophils % 1.3 D Nucleated RBC % 0 Sodium Potassium Chloride Carbon Dioxide Anion Gap BUN Creatinine Est GFR (CKD-EPI)AfAm Est GFR (CKD-EPI)NonAf POC Glucometer Random Glucose Calcium Phosphorus Magnesium Total Bilirubin AST ALT Alkaline Phosphatase Total Protein Albumin Blood Type O POSITIVE O POSITIVE Antibody Screen Negative Negative Crossmatch See Detail Active Medications Generic Name Dose Route Start Last Admin Trade Name Goodq PRN Reason Stop Dose Admin Acetaminophen 750 mg 05/23/19 11:32 06/15/19 10:01 Ofirmev Injection - IVPB 750 mg Q6H PRN Administration PAIN LEVEL 6-10 Collagenase 1 applic 05/18/19 16:00 06/17/19 09:51 Santyl - TP 1 applic DAILY GLORY Administration Protocol Docusate Sodium 200 mg 06/14/19 19:33 06/18/19 10:17 Colace Liquid - PO 200 mg DAILY PRN Administration CONSTIPATION Heparin Sodium (Porcine) 5,000 unit 06/12/19 14:00 06/18/19 06:26 Heparin - SQ 5,000 unit TID GLORY Administration Cefazolin Sodium/Dextrose 2 gm in 50 mls @ 100 mls/hr 06/03/19 10:30 09:32 Ancef 2 Gm Premixed Ivpb - IVPB 100 mls/hr Q8H-IV GLORY Administration Polyethylene Glycol 17 gm 06/16/19 10:00 06/18/19 10:17 Miralax (For Daily Use) - PO 17 gm DAILY GLORY Administration ASSESSMENT/PLAN: Ms. Rust is an 89y/o female (hospice patient prior to admission) with dementia , HTN, recurrent UTI, constipation, hypothyroidism, and malnutrition who presents with increased weakness and lethargy. Pt was admitted for severe sepsis 2/2 UTI and bacteremia. #microcytic anemia -Hb 6.9 today -2 units PRBCs -monitor CBC, no overt signs of bleeding 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, improved -last set of blood cx now negative 05/24 -Cefazolin 2gm Q8H, continue for 6 weeks after negative cx (07/04/19 end date) #stage 4 decubitus ulcer, sacral and right trochanteric -drainage present but does not need to be cultured -continue abx -monitor #severe dehydration and malnutrition, improved -dextrose PRN with BGM -dysphagia diet -Clinimix 42mL/hr d/c'ed -dietary following #hypophosphatemia, resolved -monitor #constipation -colace 200mg daily PRN -miralax -abdominal exams #hyperchloridemia, resolved #hypokalemia, resolved #hypernatremia, resolved #hypomagnesemia, resolved #oral thrush, resolved DVT Ppx heparin FEN PO fluids dysphagia puree diet code status DNR/DNI dispo waiting on placement Visit type - Emergency Visit Emergency Visit: Yes ED Registration Date: 05/18/19 Care time: The patient presented to the Emergency Department on the above date and was hospitalized for further evaluation of their emergent condition. - New Patient This patient is new to me today: No - Critical Care Critical Care patient: No - Discharge Referral Referred to [facility] No ATTENDING PHYSICIAN STATEMENT I saw and evaluated the patient. I reviewed the resident's note and discussed the case with the resident. I agree with the resident's findings and plan as documented. SUBJECTIVE: OBJECTIVE: ASSESSMENT AND PLAN:
[2019-06-18] MEDS: COLLAGENASE CLOSTRIDIUM HIST. 30 GRAMS TUBE TP SCH (15:25)
--- NOTE | 2019-06-18 16:17 | PN ---
Teaching Attending Note Name of Resident: Padmaja Henderson ATTENDING PHYSICIAN STATEMENT I saw and evaluated the patient. I reviewed the resident's note and discussed the case with the resident. I agree with the resident's findings and plan as documented. SUBJECTIVE: No new changes. Vital Signs Temperature 98.5 F 06/18/19 15:41 Pulse Rate 79 06/18/19 15:41 Respiratory Rate 18 06/18/19 15:41 Blood Pressure 107/50 L 06/18/19 15:41 O2 Sat by Pulse Oximetry (%) 100 06/18/19 09:03 GENERAL: The patient is nonverbal, contracted, but comfortable, cachectic HEAD: Normal with no signs of trauma. EYES: PERRL, EOMI, sclera anicteric, conjunctiva clear. ENT: Ears normal, dry mucus membrane , dry skin NECK: Trachea midline, full range of motion, supple. LUNGS: decreased Breath sounds bl , no wheezes, no crackles, no accessory muscle use. HEART: Regular rate and rhythm, S1, S2 positive, SHIMON 2/6 , no rub or gallop. ABDOMEN: Soft, NT,ND, normoactive bowel sounds, no guarding, no rebound, no hepatosplenomegaly, no masses. EXTREMITIES: 2+ pulses, warm, contracted LE , + edema 2+ NEUROLOGICAL: Cranial nerves II through XII grossly intact. gait not observed. PSYCH: non verbal , skin: Warm ,dry skin decub ulcer, stage 4, no discharge , no erythema , drainage from the right hip area CBCD WBC 9.5 K/mm3 (4.0-10.0) 06/18/19 06:30 RBC 2.63 M/mm3 (3.60-5.2) L 06/18/19 06:30 Hgb 6.9 GM/dL (10.7-15.3) L* 06/18/19 06:30 Hct 21.1 % (32.4-45.2) L 06/18/19 06:30 MCV 80.0 fl (80-96) 06/18/19 06:30 MCHC 32.7 g/dl (32.0-36.0) 06/18/19 06:30 RDW 17.6 % (11.6-15.6) H 06/18/19 06:30 Plt Count 410 K/MM3 (134-434) 06/18/19 06:30 MPV 7.9 fl (7.5-11.1) 06/18/19 06:30 CMP Sodium 142 mmol/L (136-145) 06/18/19 06:00 Potassium 4.0 mmol/L (3.5-5.1) 06/18/19 06:00 Chloride 107 mmol/L (98-107) 06/18/19 06:00 Carbon Dioxide 28 mmol/L (21-32) 06/18/19 06:00 Anion Gap 7 MMOL/L (8-16) L 06/18/19 06:00 BUN 16.2 mg/dL (7-18) 06/18/19 06:00 Creatinine 0.4 mg/dL (0.55-1.3) L 06/18/19 06:00 Random Glucose 68 mg/dL (74-106) L 06/18/19 06:00 Calcium 7.8 mg/dL (8.5-10.1) L 06/18/19 06:00 Total Bilirubin 0.3 mg/dL (0.2-1) 06/18/19 06:00 AST 12 U/L (15-37) L 06/18/19 06:00 ALT < 6 U/L (13-61) L 06/18/19 06:00 Alkaline Phosphatase 75 U/L (45-117) 06/18/19 06:00 Total Protein 3.8 g/dl (6.4-8.2) L 06/18/19 06:00 Albumin 1.3 g/dl (3.4-5.0) L 06/18/19 06:00 Current Medications Generic Name Dose Route Start Last Admin Trade Name Rona PRN Reason Stop Dose Admin Acetaminophen 750 mg 05/23/19 11:32 06/15/19 10:01 Ofirmev Injection - IVPB 750 mg Q6H PRN Administration PAIN LEVEL 6-10 Collagenase 1 applic 05/18/19 16:00 06/18/19 15:25 Santyl - TP 1 applic DAILY GLORY Administration Protocol Docusate Sodium 200 mg 06/14/19 19:33 06/18/19 10:17 Colace Liquid - PO 200 mg DAILY PRN Administration CONSTIPATION Heparin Sodium (Porcine) 5,000 unit 06/12/19 14:00 06/18/19 15:08 Heparin - SQ 5,000 unit TID GLORY Administration Cefazolin Sodium/Dextrose 2 gm in 50 mls @ 100 mls/hr 06/03/19 10:30 09:32 Ancef 2 Gm Premixed Ivpb - IVPB 100 mls/hr Q8H-IV GLORY Administration Polyethylene Glycol 17 gm 06/16/19 10:00 06/18/19 10:17 Miralax (For Daily Use) - PO 17 gm DAILY GLORY Administration Home Medications Medication Instructions Recorded Levothyroxine [Synthroid -] 50 mcg PO DAILY 06/21/14 Ranitidine [Zantac -] 150 mg PO BID #30 tablet 07/16/18 Cefazolin 2 gm/D5w [Ancef 2 gm 2 gm IVPB Q8H 16 Days ml 06/04/19 Premixed Ivpb -] Collagenase Clostridium Hist. 1 applic TP DAILY tube 06/04/19 [Santyl -] Microbiology 05/24/19 11:20 Blood - Peripheral Venous Blood Culture - Final NO GROWTH AFTER 5 DAYS INCUBATION 05/24/19 10:00 Blood - Peripheral Venous Blood Culture - Final NO GROWTH AFTER 5 DAYS INCUBATION 05/21/19 07:20 Blood - Peripheral Venous Blood Culture - Final Staphylococcus Aureus 05/21/19 07:10 Blood - Peripheral Venous Blood Culture - Final Staphylococcus Aureus 05/19/19 12:05 Buttock - Right Gram Stain - Final 05/19/19 12:05 Buttock - Right Wound Culture - Final Escherichia Coli Pseudomonas Aeruginosa Staphylococcus Coagulase Neg Enterococcus Faecalis Proteus Mirabilis 05/17/19 22:32 Blood - Peripheral Venous Blood Culture - Final Staphylococcus Aureus 05/18/19 18:15 Blood - Peripheral Venous Blood Culture - Final Staphylococcus Aureus 05/18/19 18:00 Blood - Peripheral Venous Blood Culture - Final Staphylococcus Aureus 05/18/19 00:17 Urine - Urine Clean Catch Urine Culture - Final Klebsiella Pneumoniae 05/17/19 22:32 Blood - Peripheral Venous Blood Culture - Final Staphylococcus Aureus Assessment and plan: Patient is an 89 y/o with home hospice was brought in by the family member due to increased lethargy. she was supposedly on home Hospice care but family brought her here. # Severe sepsis: improved , continue IV antibiotics # MSSA bacteremia: cleared ,cont cefazolin needs total of 6 weeks. today day # hypotension: improved # Stage 4 Decub ulcer # Severe protein calorie malnutrition . # Cachexia : cont clinimix # hypernatremia: resolved # Klebsiella UTI #- Anemia cont diet DVT Px: hep SQ bowel enema No new cx was recommended by ID placement is pending
[2019-06-18 23:57] LABS: BASO % 0.6 % (0-2.0); EOS % 1.4 % (0-4.5); HEMATOCRIT 26.4 % (32.4-45.2); HEMOGLOBIN 8.7 GM/dL (10.7-15.3); LYMPH % 13.6 % (8-40); MCH 27.4 pg (25.7-33.7); MCHC 32.9 g/dl (32.0-36.0); MEAN CELL VOLUME 83.3 fl (80-96); MEAN PLT VOLUME 7.4 fl (7.5-11.1); MONO % 7.2 % (3.8-10.2); NEUT % 77.2 % (42.8-82.8); PLATELET COUNT 349 K/MM3 (134-434); RBC 3.17 M/mm3 (3.60-5.2); RDW 17.7 % (11.6-15.6); WHITE BLOOD COUNT 11.5 K/mm3 (4.0-10.0)
[2019-06-19] MEDS: CEFAZOLIN 2 GM/D5W 2 GM/50 ML ML IVPB SCH ×3 (02:50→18:02)
[2019-06-19] MEDS: HEPARIN NA (PORCINE) 5,000 UNITS/ML 1ML VIAL SQ SCH ×3 (05:48→21:35)
[2019-06-19 06:53] LABS: BASO % 0.3 % (0-2.0); EOS % 1.9 % (0-4.5); HEMATOCRIT 29.8 % (32.4-45.2); LYMPH % 12.4 % (8-40); MCH 27.8 pg (25.7-33.7); MCHC 33.6 g/dl (32.0-36.0); MEAN CELL VOLUME 82.5 fl (80-96); MEAN PLT VOLUME 8.1 fl (7.5-11.1); MONO % 5.8 % (3.8-10.2); NEUT % 79.6 % (42.8-82.8); PLATELET COUNT 397 K/MM3 (134-434); RBC 3.61 M/mm3 (3.60-5.2); RDW 17.3 % (11.6-15.6); WHITE BLOOD COUNT 10.4 K/mm3 (4.0-10.0)
[2019-06-19 07:14] LABS: ALBUMIN 1.4 g/dl (3.4-5.0); ALK PHOS 77 U/L (45-117); ANION GAP 7 MMOL/L (8-16); BILIRUBIN,TOTAL 0.2 mg/dL (0.2-1); BLOOD UREA NITROGEN 16.1 mg/dL (7-18); CALCIUM 7.5 mg/dL (8.5-10.1); CHLORIDE 108 mmol/L (98-107); CO2 27 mmol/L (21-32); CREATININE 0.5 mg/dL (0.55-1.3); GLUCOSE,RANDOM 72 mg/dL (74-106); PHOSPHOROUS 3.2 mg/dL (2.5-4.9); SGOT/AST 13 U/L (15-37); SGPT/ALT < 6 U/L (13-61); SODIUM 141 mmol/L (136-145)
[2019-06-19] MEDS: POLYETHYLENE GLYCOL 3350 119 GM BTL PO SCH (10:12)
[2019-06-19] MEDS: DOCUSATE NA 100 MG/10 ML UNIT-DOSE CUPS PO PRN (10:13)
[2019-06-19] MEDS: COLLAGENASE CLOSTRIDIUM HIST. 30 GRAMS TUBE TP SCH (12:00)
--- NOTE | 2019-06-19 17:49 | PN ---
Progress Note (short form) - Note Progress Note: Patient is comfortable no new changes. Vital Signs Temperature 98.8 F 06/19/19 14:13 Pulse Rate 78 06/19/19 14:13 Respiratory Rate 22 H 06/19/19 14:13 Blood Pressure 139/58 L 06/19/19 14:13 O2 Sat by Pulse Oximetry (%) 99 06/19/19 09:00 GENERAL: The patient is nonverbal, contracted, but comfortable, cachectic HEAD: Normal with no signs of trauma. EYES: PERRL, EOMI, sclera anicteric, conjunctiva clear. ENT: Ears normal, dry mucus membrane , dry skin NECK: Trachea midline, full range of motion, supple. LUNGS: decreased Breath sounds bl , no wheezes, no crackles, no accessory muscle use. HEART: Regular rate and rhythm, S1, S2 positive, SHIMON 2/6 , no rub or gallop. ABDOMEN: Soft, NT,ND, normoactive bowel sounds, no guarding, no rebound, no hepatosplenomegaly, no masses. EXTREMITIES: 2+ pulses, warm, contracted LE , + edema 2+ NEUROLOGICAL: Cranial nerves II through XII grossly intact. gait not observed. PSYCH: non verbal , skin: Warm ,dry skin decub ulcer, stage 4, no discharge , no erythema , drainage from the right hip continues CBCD WBC 10.4 K/mm3 (4.0-10.0) H 06/19/19 05:45 RBC 3.61 M/mm3 (3.60-5.2) 06/19/19 05:45 Hgb 10.0 GM/dL (10.7-15.3) L 06/19/19 05:45 Hct 29.8 % (32.4-45.2) L 06/19/19 05:45 MCV 82.5 fl (80-96) 06/19/19 05:45 MCHC 33.6 g/dl (32.0-36.0) 06/19/19 05:45 RDW 17.3 % (11.6-15.6) H 06/19/19 05:45 Plt Count 397 K/MM3 (134-434) 06/19/19 05:45 MPV 8.1 fl (7.5-11.1) 06/19/19 05:45 CMP Sodium 141 mmol/L (136-145) 06/19/19 05:45 Potassium 4.0 mmol/L (3.5-5.1) 06/19/19 05:45 Chloride 108 mmol/L (98-107) H 06/19/19 05:45 Carbon Dioxide 27 mmol/L (21-32) 06/19/19 05:45 Anion Gap 7 MMOL/L (8-16) L 06/19/19 05:45 BUN 16.1 mg/dL (7-18) 06/19/19 05:45 Creatinine 0.5 mg/dL (0.55-1.3) L 06/19/19 05:45 Random Glucose 72 mg/dL (74-106) L 06/19/19 05:45 Calcium 7.5 mg/dL (8.5-10.1) L 06/19/19 05:45 Total Bilirubin 0.2 mg/dL (0.2-1) 06/19/19 05:45 AST 13 U/L (15-37) L 06/19/19 05:45 ALT < 6 U/L (13-61) L 06/19/19 05:45 Alkaline Phosphatase 77 U/L (45-117) 06/19/19 05:45 Total Protein 4.0 g/dl (6.4-8.2) L 06/19/19 05:45 Albumin 1.4 g/dl (3.4-5.0) L 06/19/19 05:45 Current Medications Generic Name Dose Route Start Last Admin Trade Name Goodq PRN Reason Stop Dose Admin Acetaminophen 750 mg 05/23/19 11:32 06/15/19 10:01 Ofirmev Injection - IVPB 750 mg Q6H PRN Administration PAIN LEVEL 6-10 Collagenase 1 applic 05/18/19 16:00 06/19/19 12:00 Santyl - TP 1 applic DAILY GLORY Administration Protocol Docusate Sodium 200 mg 06/14/19 19:33 06/19/19 10:13 Colace Liquid - PO 200 mg DAILY PRN Administration CONSTIPATION Heparin Sodium (Porcine) 5,000 unit 06/12/19 14:00 06/19/19 14:22 Heparin - SQ 5,000 unit TID GLORY Administration Cefazolin Sodium/Dextrose 2 gm in 50 mls @ 100 mls/hr 06/03/19 10:30 10:12 Ancef 2 Gm Premixed Ivpb - IVPB 100 mls/hr Q8H-IV GLORY Administration Polyethylene Glycol 17 gm 06/16/19 10:00 06/19/19 10:12 Miralax (For Daily Use) - PO 17 gm DAILY GLORY Administration Assessment and plan: Patient is an 89 y/o with home hospice was brought in by the family member due to increased lethargy. she was supposedly on home Hospice care but family brought her here. # Severe sepsis: improved , continue IV antibiotics # MSSA bacteremia: cleared ,cont cefazolin needs total of 6 weeks. today day # hypotension: improved # Stage 4 Decub ulcer # Severe protein calorie malnutrition . # Cachexia : cont clinimix # hypernatremia: resolved # Klebsiella UTI #- Anemia cont diet DVT Px: hep SQ bowel enema No new cx was recommended by ID placement is pending Visit type - Emergency Visit Emergency Visit: Yes ED Registration Date: 05/18/19 Care time: The patient presented to the Emergency Department on the above date and was hospitalized for further evaluation of their emergent condition. - New Patient This patient is new to me today: No - Critical Care Critical Care patient: No - Discharge Referral Referred to [facility] Med P.C.: No
[2019-06-20] MEDS: CEFAZOLIN 2 GM/D5W 2 GM/50 ML ML IVPB SCH ×3 (01:21→17:51)
[2019-06-20] MEDS: HEPARIN NA (PORCINE) 5,000 UNITS/ML 1ML VIAL SQ SCH ×3 (06:29→21:30)
[2019-06-20] MEDS ORDERED: PT OWN MED DRAWER 7, Y5N ONE (09:42)
--- NOTE | 2019-06-20 10:33 | PN ---
Physical Exam: SUBJECTIVE: Patient seen and examined. She is non-verbal. OBJECTIVE: Vital Signs Period Temp Pulse Resp BP Sys/Chinchilla Pulse Ox Last 24 Hr 97.6 F-99.8 F 2-93 18-22 119-139/58-71 99 GENERAL: Awake and alert, not in distress. HEAD: Normal with no signs of trauma. Tooth loss. EYES: Conjunctiva clear. EOM intact. ENT: Ears normal, nares patent, moist mucous membranes NECK: Trachea midline LUNGS: Clear to auscultation bilaterally, no wheezes HEART: Regular rate and rhythm, 3/6 systolic murmur ABDOMEN: Distended, non-tender on palpation, normoactive bowel sounds BACK: stage 4 sacral ulcer and right trochanteric ulcer bandaged EXTREMITIES: well-perfused, +2 pitting edema b/l feet, right arm PICC with no erythema, arms contracted NEUROLOGICAL: Cannot be assessed. PSYCH: Cannot be assessed. SKIN: Warm, dry Laboratory Results - last 24 hr 06/19/19 06/20/19 17:36 06:11 POC Glucometer 93 67 Active Medications Generic Name Dose Route Start Last Admin Trade Name Freq PRN Reason Stop Dose Admin Acetaminophen 750 mg 05/23/19 11:32 06/15/19 10:01 Ofirmev Injection - IVPB 750 mg Q6H PRN Administration PAIN LEVEL 6-10 Collagenase 1 applic 05/18/19 16:00 06/19/19 12:00 Santyl - TP 1 applic DAILY GLORY Administration Protocol Docusate Sodium 200 mg 06/14/19 19:33 06/19/19 10:13 Colace Liquid - PO 200 mg DAILY PRN Administration CONSTIPATION Heparin Sodium (Porcine) 5,000 unit 06/12/19 14:00 06/20/19 06:29 Heparin - SQ 5,000 unit TID GLORY Administration Cefazolin Sodium/Dextrose 2 gm in 50 mls @ 100 mls/hr 06/03/19 10:30 01:21 Ancef 2 Gm Premixed Ivpb - IVPB 100 mls/hr Q8H-IV GLORY Administration Polyethylene Glycol 17 gm 06/16/19 10:00 06/19/19 10:12 Miralax (For Daily Use) - PO 17 gm DAILY GLORY Administration ASSESSMENT/PLAN: Ms. Rust is an 89y/o female (hospice patient prior to admission) with dementia , HTN, recurrent UTI, constipation, hypothyroidism, and malnutrition who presents with increased weakness and lethargy. Pt was admitted for severe sepsis 2/2 UTI and bacteremia. 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, improved -last set of blood cx now negative 05/24 -Cefazolin 2gm Q8H, continue for 6 weeks after negative cx (07/04/19 end date) #stage 4 decubitus ulcer, sacral and right trochanteric -drainage present but does not need to be cultured -continue abx -monitor #severe dehydration and malnutrition, improved -dextrose PRN with BGM -dysphagia diet -dietary following #microcytic anemia s/p 2 units PRBCs -Hb improved -3 total this admission -monitor CBC, no overt signs of bleeding #constipation, improved -colace 200mg daily PRN -miralax -abdominal exams #hypophosphatemia, resolved #hyperchloridemia, resolved #hypokalemia, resolved #hypernatremia, resolved #hypomagnesemia, resolved #oral thrush, resolved DVT Ppx heparin FEN PO fluids dysphagia puree diet code status DNR/DNI dispo waiting on placement Visit type - Emergency Visit Emergency Visit: Yes ED Registration Date: 05/18/19 Care time: The patient presented to the Emergency Department on the above date and was hospitalized for further evaluation of their emergent condition. - New Patient This patient is new to me today: No - Critical Care Critical Care patient: No - Discharge Referral Referred to [facility] Med P.C.: No ATTENDING PHYSICIAN STATEMENT I saw and evaluated the patient. I reviewed the resident's note and discussed the case with the resident. I agree with the resident's findings and plan as documented. SUBJECTIVE: OBJECTIVE: ASSESSMENT AND PLAN:
[2019-06-20] MEDS: POLYETHYLENE GLYCOL 3350 119 GM BTL PO SCH (11:23)
[2019-06-20] MEDS: COLLAGENASE CLOSTRIDIUM HIST. 30 GRAMS TUBE TP SCH (11:23)
--- NOTE | 2019-06-20 14:51 | PN ---
Teaching Attending Note Name of Resident: Padmaja Henderson ATTENDING PHYSICIAN STATEMENT I saw and evaluated the patient. I reviewed the resident's note and discussed the case with the resident. I agree with the resident's findings and plan as documented. SUBJECTIVE: Patient is comfortable with no acute distress. Vital Signs Temperature 97.6 F 06/20/19 06:00 Pulse Rate 2 L 06/20/19 06:00 Respiratory Rate 18 06/20/19 06:00 Blood Pressure 128/64 06/20/19 06:00 O2 Sat by Pulse Oximetry (%) 99 06/19/19 21:00 GENERAL: The patient is nonverbal, contracted, but comfortable, cachectic HEAD: Normal with no signs of trauma. EYES: PERRL, EOMI, sclera anicteric, conjunctiva clear. ENT: Ears normal, dry mucus membrane , dry skin NECK: Trachea midline, full range of motion, supple. LUNGS: decreased Breath sounds bl , no wheezes, no crackles, no accessory muscle use. HEART: Regular rate and rhythm, S1, S2 positive, SHIMON 2/6 , no rub or gallop. ABDOMEN: Soft, NT,ND, normoactive bowel sounds, no guarding, no rebound, no hepatosplenomegaly, no masses. EXTREMITIES: 2+ pulses, warm, contracted LE , + edema 2+ NEUROLOGICAL: Cranial nerves II through XII grossly intact. gait not observed. PSYCH: non verbal , skin: Warm ,dry skin decub ulcer, stage 4, no discharge , no erythema, drainage from the right hip continues. CBCD WBC 10.4 K/mm3 (4.0-10.0) H 06/19/19 05:45 RBC 3.61 M/mm3 (3.60-5.2) 06/19/19 05:45 Hgb 10.0 GM/dL (10.7-15.3) L 06/19/19 05:45 Hct 29.8 % (32.4-45.2) L 06/19/19 05:45 MCV 82.5 fl (80-96) 06/19/19 05:45 MCHC 33.6 g/dl (32.0-36.0) 06/19/19 05:45 RDW 17.3 % (11.6-15.6) H 06/19/19 05:45 Plt Count 397 K/MM3 (134-434) 06/19/19 05:45 MPV 8.1 fl (7.5-11.1) 06/19/19 05:45 CMP Sodium 141 mmol/L (136-145) 06/19/19 05:45 Potassium 4.0 mmol/L (3.5-5.1) 06/19/19 05:45 Chloride 108 mmol/L (98-107) H 06/19/19 05:45 Carbon Dioxide 27 mmol/L (21-32) 06/19/19 05:45 Anion Gap 7 MMOL/L (8-16) L 06/19/19 05:45 BUN 16.1 mg/dL (7-18) 06/19/19 05:45 Creatinine 0.5 mg/dL (0.55-1.3) L 06/19/19 05:45 Random Glucose 72 mg/dL (74-106) L 06/19/19 05:45 Calcium 7.5 mg/dL (8.5-10.1) L 06/19/19 05:45 Total Bilirubin 0.2 mg/dL (0.2-1) 06/19/19 05:45 AST 13 U/L (15-37) L 06/19/19 05:45 ALT < 6 U/L (13-61) L 06/19/19 05:45 Alkaline Phosphatase 77 U/L (45-117) 06/19/19 05:45 Total Protein 4.0 g/dl (6.4-8.2) L 06/19/19 05:45 Albumin 1.4 g/dl (3.4-5.0) L 06/19/19 05:45 Current Medications Generic Name Dose Route Start Last Admin Trade Name Rona PRN Reason Stop Dose Admin Acetaminophen 750 mg 05/23/19 11:32 06/15/19 10:01 Ofirmev Injection - IVPB 750 mg Q6H PRN Administration PAIN LEVEL 6-10 Collagenase 1 applic 05/18/19 16:00 06/19/19 12:00 Santyl - TP 1 applic DAILY GLORY Administration Protocol Docusate Sodium 200 mg 06/14/19 19:33 06/19/19 10:13 Colace Liquid - PO 200 mg DAILY PRN Administration CONSTIPATION Heparin Sodium (Porcine) 5,000 unit 06/12/19 14:00 06/19/19 14:22 Heparin - SQ 5,000 unit TID GLORY Administration Cefazolin Sodium/Dextrose 2 gm in 50 mls @ 100 mls/hr 06/03/19 10:30 10:12 Ancef 2 Gm Premixed Ivpb - IVPB 100 mls/hr Q8H-IV GLORY Administration Polyethylene Glycol 17 gm 06/16/19 10:00 06/19/19 10:12 Miralax (For Daily Use) - PO 17 gm DAILY GLORY Administration Assessment and plan: Patient is an 89yof with home hospice was brought in by the family member due to increased lethargy. # Severe sepsis: improved , continue IV antibiotics # MSSA bacteremia: cleared, cont. cefazolin needs total of 6 weeks. today day # hypotension: improved # Stage 4 Decub ulcer # Severe protein calorie malnutrition. # Cachexia : cont clinimix # hypernatremia: resolved # Klebsiella UTI # Anemia cont diet DVT Px: hep SQ bowel enema No new cx was recommended by ID placement is pending
[2019-06-21] MEDS: CEFAZOLIN 2 GM/D5W 2 GM/50 ML ML IVPB SCH ×3 (01:51→19:01)
[2019-06-21] MEDS: HEPARIN NA (PORCINE) 5,000 UNITS/ML 1ML VIAL SQ SCH ×3 (06:22→21:21)
[2019-06-21 07:44] LABS: BASO % 0.8 % (0-2.0); EOS % 2.4 % (0-4.5); HEMATOCRIT 32.6 % (32.4-45.2); HEMOGLOBIN 10.6 GM/dL (10.7-15.3); LYMPH % 12.2 % (8-40); MCH 27.6 pg (25.7-33.7); MCHC 32.5 g/dl (32.0-36.0); MEAN PLT VOLUME 8.2 fl (7.5-11.1); MONO % 6.2 % (3.8-10.2); NEUT % 78.4 % (42.8-82.8); PLATELET COUNT 378 K/MM3 (134-434); RBC 3.84 M/mm3 (3.60-5.2); RDW 19.1 % (11.6-15.6); WHITE BLOOD COUNT 9.3 K/mm3 (4.0-10.0)
[2019-06-21 08:13] LABS: ALBUMIN 1.4 g/dl (3.4-5.0); ALK PHOS 77 U/L (45-117); ANION GAP 7 MMOL/L (8-16); BILIRUBIN,TOTAL 0.2 mg/dL (0.2-1); BLOOD UREA NITROGEN 10.8 mg/dL (7-18); CALCIUM 8.1 mg/dL (8.5-10.1); CHLORIDE 107 mmol/L (98-107); CO2 28 mmol/L (21-32); CREATININE 0.4 mg/dL (0.55-1.3); GLUCOSE,RANDOM 69 mg/dL (74-106); PHOSPHOROUS 2.8 mg/dL (2.5-4.9); SGOT/AST 10 U/L (15-37); SGPT/ALT < 6 U/L (13-61); SODIUM 141 mmol/L (136-145); TOT PROT 4.1 g/dl (6.4-8.2)
--- NOTE | 2019-06-21 10:30 | PN ---
Physical Exam: SUBJECTIVE: Patient seen and examined. Pt is awake and non-verbal. She nods her head. OBJECTIVE: Vital Signs Period Temp Pulse Resp BP Sys/Chinchilla Pulse Ox Last 24 Hr 97.7 F-98.8 F 66-76 18-18 100-108/57-64 99 GENERAL: Awake and alert, not in distress. HEAD: Normal with no signs of trauma. Tooth loss. EYES: Conjunctiva clear. EOM intact. ENT: Ears normal, nares patent, moist mucous membranes NECK: Trachea midline LUNGS: Clear to auscultation bilaterally, no wheezes HEART: Regular rate and rhythm, 3/6 systolic murmur ABDOMEN: Distended, non-tender on palpation, normoactive bowel sounds BACK: stage 4 sacral ulcer and right trochanteric ulcer bandaged EXTREMITIES: well-perfused, +2 pitting edema b/l feet, right arm PICC with no erythema, arms contracted NEUROLOGICAL: Cannot be assessed. PSYCH: Cannot be assessed. SKIN: Warm, dry Laboratory Results - last 24 hr 06/20/19 06/21/19 06/21/19 18:53 05:15 06:20 WBC 9.3 RBC 3.84 Hgb 10.6 L Hct 32.6 MCV 85.0 MCH 27.6 MCHC 32.5 RDW 19.1 H Plt Count 378 MPV 8.2 Absolute Neuts (auto) 7.3 Neutrophils % 78.4 Lymphocytes % 12.2 Monocytes % 6.2 Eosinophils % 2.4 Basophils % 0.8 Nucleated RBC % 0 Sodium Potassium Chloride Carbon Dioxide Anion Gap BUN Creatinine Est GFR (CKD-EPI)AfAm Est GFR (CKD-EPI)NonAf POC Glucometer 91 63 Random Glucose Calcium Phosphorus Magnesium Total Bilirubin AST ALT Alkaline Phosphatase Total Protein Albumin 06/21/19 06:20 WBC RBC Hgb Hct MCV MCH MCHC RDW Plt Count MPV Absolute Neuts (auto) Neutrophils % Lymphocytes % Monocytes % Eosinophils % Basophils % Nucleated RBC % Sodium 141 Potassium 4.0 Chloride 107 Carbon Dioxide 28 Anion Gap 7 L BUN 10.8 Creatinine 0.4 L Est GFR (CKD-EPI)AfAm 107.03 Est GFR (CKD-EPI)NonAf 92.34 POC Glucometer Random Glucose 69 L Calcium 8.1 L Phosphorus 2.8 Magnesium 2.0 Total Bilirubin 0.2 AST 10 L ALT < 6 L Alkaline Phosphatase 77 Total Protein 4.1 L Albumin 1.4 L Active Medications Generic Name Dose Route Start Last Admin Trade Name Rona PRN Reason Stop Dose Admin Acetaminophen 750 mg 05/23/19 11:32 06/15/19 10:01 Ofirmev Injection - IVPB 750 mg Q6H PRN Administration PAIN LEVEL 6-10 Collagenase 1 applic 05/18/19 16:00 06/20/19 11:23 Santyl - TP 1 applic DAILY GLORY Administration Protocol Docusate Sodium 200 mg 06/14/19 19:33 06/19/19 10:13 Colace Liquid - PO 200 mg DAILY PRN Administration CONSTIPATION Heparin Sodium (Porcine) 5,000 unit 06/12/19 14:00 06/21/19 06:22 Heparin - SQ 5,000 unit TID GLORY Administration Cefazolin Sodium/Dextrose 2 gm in 50 mls @ 100 mls/hr 06/03/19 10:30 01:51 Ancef 2 Gm Premixed Ivpb - IVPB 100 mls/hr Q8H-IV GLORY Administration Polyethylene Glycol 17 gm 06/16/19 10:00 06/20/19 11:23 Miralax (For Daily Use) - PO 17 gm DAILY GLORY Administration ASSESSMENT/PLAN: Ms. Rust is an 89y/o female (hospice patient prior to admission) with dementia , HTN, recurrent UTI, constipation, hypothyroidism, and malnutrition who presents with increased weakness and lethargy. Pt was admitted for severe sepsis 2/2 UTI and bacteremia. 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, improved -last set of blood cx now negative 05/24 -Cefazolin 2gm Q8H, continue for 6 weeks after negative cx (07/04/19 end date) #stage 4 decubitus ulcer, sacral and right trochanteric -drainage present but does not need to be cultured -continue abx -monitor #severe dehydration and malnutrition, improved -dextrose PRN with BGM -dysphagia diet -dietary following #microcytic anemia s/p 2 units PRBCs -Hb improved- 10.6 -3 total this admission -monitor CBC, no overt signs of bleeding #constipation, improved -colace 200mg daily PRN -miralax -abdominal exams #hypophosphatemia, resolved #hyperchloridemia, resolved #hypokalemia, resolved #hypernatremia, resolved #hypomagnesemia, resolved #oral thrush, resolved DVT Ppx heparin FEN PO fluids dysphagia puree diet code status DNR/DNI dispo waiting on placement Visit type - Emergency Visit Emergency Visit: Yes ED Registration Date: 05/18/19 Care time: The patient presented to the Emergency Department on the above date and was hospitalized for further evaluation of their emergent condition. - New Patient This patient is new to me today: No - Critical Care Critical Care patient: No - Discharge Referral Referred to [facility] Med P.C.: No ATTENDING PHYSICIAN STATEMENT I saw and evaluated the patient. I reviewed the resident's note and discussed the case with the resident. I agree with the resident's findings and plan as documented. SUBJECTIVE: OBJECTIVE: ASSESSMENT AND PLAN:
[2019-06-21] MEDS: POLYETHYLENE GLYCOL 3350 119 GM BTL PO SCH (11:08)
[2019-06-21] MEDS: COLLAGENASE CLOSTRIDIUM HIST. 30 GRAMS TUBE TP SCH (11:09)
--- NOTE | 2019-06-21 17:04 | PN ---
Teaching Attending Note Name of Resident: Padmaja Henderson ATTENDING PHYSICIAN STATEMENT I saw and evaluated the patient. I reviewed the resident's note and discussed the case with the resident. I agree with the resident's findings and plan as documented. SUBJECTIVE: Patient is comfortable with no acute distress. Vital Signs Temperature 98.0 F 06/21/19 14:00 Pulse Rate 82 06/21/19 14:00 Respiratory Rate 18 06/21/19 14:00 Blood Pressure 142/52 L 06/21/19 14:00 O2 Sat by Pulse Oximetry (%) 99 06/21/19 09:00 GENERAL: The patient is nonverbal, contracted, but comfortable, cachectic HEAD: Normal with no signs of trauma. EYES: PERRL, EOMI, sclera anicteric, conjunctiva clear. ENT: Ears normal, dry mucus membrane , dry skin NECK: Trachea midline, full range of motion, supple. LUNGS: decreased Breath sounds bl , no wheezes, no crackles, no accessory muscle use. HEART: Regular rate and rhythm, S1, S2 positive, SHIMON 2/6 , no rub or gallop. ABDOMEN: Soft, NT,ND, normoactive bowel sounds, no guarding, no rebound, no hepatosplenomegaly, no masses. EXTREMITIES: 2+ pulses, warm, contracted LE , + edema 2+ NEUROLOGICAL: Cranial nerves II through XII grossly intact. gait not observed. PSYCH: non verbal , skin: Warm ,dry skin decub ulcer, stage 4, no discharge , no erythema, drainage from the right hip continues. CBCD WBC 9.3 K/mm3 (4.0-10.0) 06/21/19 06:20 RBC 3.84 M/mm3 (3.60-5.2) 06/21/19 06:20 Hgb 10.6 GM/dL (10.7-15.3) L 06/21/19 06:20 Hct 32.6 % (32.4-45.2) 06/21/19 06:20 MCV 85.0 fl (80-96) 06/21/19 06:20 MCHC 32.5 g/dl (32.0-36.0) 06/21/19 06:20 RDW 19.1 % (11.6-15.6) H 06/21/19 06:20 Plt Count 378 K/MM3 (134-434) 06/21/19 06:20 MPV 8.2 fl (7.5-11.1) 06/21/19 06:20 CMP Sodium 141 mmol/L (136-145) 06/21/19 06:20 Potassium 4.0 mmol/L (3.5-5.1) 06/21/19 06:20 Chloride 107 mmol/L (98-107) 06/21/19 06:20 Carbon Dioxide 28 mmol/L (21-32) 06/21/19 06:20 Anion Gap 7 MMOL/L (8-16) L 06/21/19 06:20 BUN 10.8 mg/dL (7-18) 06/21/19 06:20 Creatinine 0.4 mg/dL (0.55-1.3) L 06/21/19 06:20 Random Glucose 69 mg/dL (74-106) L 06/21/19 06:20 Calcium 8.1 mg/dL (8.5-10.1) L 06/21/19 06:20 Total Bilirubin 0.2 mg/dL (0.2-1) 06/21/19 06:20 AST 10 U/L (15-37) L 06/21/19 06:20 ALT < 6 U/L (13-61) L 06/21/19 06:20 Alkaline Phosphatase 77 U/L (45-117) 06/21/19 06:20 Total Protein 4.1 g/dl (6.4-8.2) L 06/21/19 06:20 Albumin 1.4 g/dl (3.4-5.0) L 06/21/19 06:20 Current Medications Generic Name Dose Route Start Last Admin Trade Name Rona PRN Reason Stop Dose Admin Acetaminophen 750 mg 05/23/19 11:32 06/15/19 10:01 Ofirmev Injection - IVPB 750 mg Q6H PRN Administration PAIN LEVEL 6-10 Collagenase 1 applic 05/18/19 16:00 06/21/19 11:09 Santyl - TP 1 applic DAILY GLORY Administration Protocol Docusate Sodium 200 mg 06/14/19 19:33 06/19/19 10:13 Colace Liquid - PO 200 mg DAILY PRN Administration CONSTIPATION Heparin Sodium (Porcine) 5,000 unit 06/12/19 14:00 06/21/19 15:10 Heparin - SQ 5,000 unit TID GLORY Administration Cefazolin Sodium/Dextrose 2 gm in 50 mls @ 100 mls/hr 06/03/19 10:30 11:08 Ancef 2 Gm Premixed Ivpb - IVPB 100 mls/hr Q8H-IV GLORY Administration Polyethylene Glycol 17 gm 06/16/19 10:00 06/21/19 11:08 Miralax (For Daily Use) - PO 17 gm DAILY GLORY Administration Home Medications Medication Instructions Recorded Levothyroxine [Synthroid -] 50 mcg PO DAILY 06/21/14 Ranitidine [Zantac -] 150 mg PO BID #30 tablet 07/16/18 Cefazolin 2 gm/D5w [Ancef 2 gm 2 gm IVPB Q8H 16 Days ml 06/04/19 Premixed Ivpb -] Collagenase Clostridium Hist. 1 applic TP DAILY tube 06/04/19 [Santyl -] Microbiology 05/24/19 11:20 Blood - Peripheral Venous Blood Culture - Final NO GROWTH AFTER 5 DAYS INCUBATION 05/24/19 10:00 Blood - Peripheral Venous Blood Culture - Final NO GROWTH AFTER 5 DAYS INCUBATION 05/21/19 07:20 Blood - Peripheral Venous Blood Culture - Final Staphylococcus Aureus 05/21/19 07:10 Blood - Peripheral Venous Blood Culture - Final Staphylococcus Aureus 05/19/19 12:05 Buttock - Right Gram Stain - Final 05/19/19 12:05 Buttock - Right Wound Culture - Final Escherichia Coli Pseudomonas Aeruginosa Staphylococcus Coagulase Neg Enterococcus Faecalis Proteus Mirabilis 05/17/19 22:32 Blood - Peripheral Venous Blood Culture - Final Staphylococcus Aureus 05/18/19 18:15 Blood - Peripheral Venous Blood Culture - Final Staphylococcus Aureus 05/18/19 18:00 Blood - Peripheral Venous Blood Culture - Final Staphylococcus Aureus 05/18/19 00:17 Urine - Urine Clean Catch Urine Culture - Final Klebsiella Pneumoniae 05/17/19 22:32 Blood - Peripheral Venous Blood Culture - Final Staphylococcus Aureus Assessment and plan: Patient is an 89yof with home hospice was brought in by the family member due to increased lethargy. # s/p severe sepsis: improved , continue IV antibiotics # MSSA bacteremia: cleared, cont. cefazolin needs total of 6 weeks. today day # hypotension: improved # Stage 4 Decub ulcer # Severe protein calorie malnutrition. # Cachexia : off clinimix now since patient is eating # hypernatremia: resolved # Klebsiella UTI # Anemia transfuse prn cont diet DVT Px: hep SQ bowel enema No new cx was recommended by ID placement is pending
[2019-06-22] MEDS: CEFAZOLIN 2 GM/D5W 2 GM/50 ML ML IVPB SCH ×3 (01:57→17:50)
[2019-06-22] MEDS: HEPARIN NA (PORCINE) 5,000 UNITS/ML 1ML VIAL SQ SCH ×3 (05:45→22:02)
[2019-06-22] MEDS ORDERED: DEXTROSE 50%-WATER - 25 GM/50 ML VIAL IVPUSH ONE ×2 (06:03→06:30)
[2019-06-22] MEDS ORDERED: DEXTROSE 50%-WATER - 25 GM/50 ML VIAL ONE (06:14)
[2019-06-22] MEDS ORDERED: DEXTROSE 50%-WATER 25 GM/50 ML DISP.SYRIN IVPUSH ONE (06:15)
[2019-06-22] MEDS: POLYETHYLENE GLYCOL 3350 119 GM BTL PO SCH (10:08)
[2019-06-22] MEDS: COLLAGENASE CLOSTRIDIUM HIST. 30 GRAMS TUBE TP SCH (11:07)
--- NOTE | 2019-06-22 12:46 | PN ---
Physical Exam: SUBJECTIVE: Patient seen and examined. Pt is non-verbal. OBJECTIVE: Vital Signs Period Temp Pulse Resp BP Sys/Chinchilla Pulse Ox Last 24 Hr 97.3 F-98.8 F 74-88 18-18 112-142/52-86 98-100 GENERAL: Awake and alert, not in distress. HEAD: Normal with no signs of trauma. Tooth loss. EYES: Conjunctiva clear. EOM intact. ENT: Ears normal, nares patent, moist mucous membranes NECK: Trachea midline LUNGS: Clear to auscultation bilaterally, no wheezes HEART: Regular rate and rhythm, 3/6 systolic murmur ABDOMEN: Distended, non-tender on palpation, normoactive bowel sounds BACK: stage 4 sacral ulcer and right trochanteric ulcer with small amount of drainage EXTREMITIES: well-perfused, +1 pitting edema right foot, +2 pitting edema left foot, right arm PICC with no erythema, arms contracted NEUROLOGICAL: Cannot be assessed. PSYCH: Cannot be assessed. SKIN: Warm, dry Laboratory Results - last 24 hr 06/18/19 06/21/19 06/22/19 09:30 18:58 05:59 POC Glucometer 99 54 Blood Type O POSITIVE Antibody Screen Negative Crossmatch See Detail 06/22/19 06:44 POC Glucometer 137 Blood Type Antibody Screen Crossmatch Active Medications Generic Name Dose Route Start Last Admin Trade Name Rona PRN Reason Stop Dose Admin Acetaminophen 750 mg 05/23/19 11:32 06/15/19 10:01 Ofirmev Injection - IVPB 750 mg Q6H PRN Administration PAIN LEVEL 6-10 Collagenase 1 applic 05/18/19 16:00 06/22/19 11:07 Santyl - TP 1 applic DAILY GLORY Administration Protocol Docusate Sodium 200 mg 06/14/19 19:33 06/19/19 10:13 Colace Liquid - PO 200 mg DAILY PRN Administration CONSTIPATION Heparin Sodium (Porcine) 5,000 unit 06/12/19 14:00 06/22/19 05:45 Heparin - SQ 5,000 unit TID GLORY Administration Cefazolin Sodium/Dextrose 2 gm in 50 mls @ 100 mls/hr 06/03/19 10:30 10:08 Ancef 2 Gm Premixed Ivpb - IVPB 100 mls/hr Q8H-IV GLORY Administration Polyethylene Glycol 17 gm 06/16/19 10:00 06/22/19 10:08 Miralax (For Daily Use) - PO 17 gm DAILY GLORY Administration ASSESSMENT/PLAN: Ms. Rust is an 89y/o female (hospice patient prior to admission) with dementia , HTN, recurrent UTI, constipation, hypothyroidism, and malnutrition who presents with increased weakness and lethargy. Pt was admitted for severe sepsis 2/2 UTI and bacteremia. 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, improved -last set of blood cx now negative 05/24 -Cefazolin 2gm Q8H, continue for 6 weeks after negative cx (07/04/19 end date) #stage 4 decubitus ulcer, sacral and right trochanteric -drainage present but does not need to be cultured -continue abx -monitor #severe dehydration and malnutrition, improved -dextrose PRN with BGM -dysphagia diet -dietary following #microcytic anemia s/p 2 units PRBCs -Hb improved- 10.6 -3 total this admission -monitor CBC, no overt signs of bleeding #constipation, improved -colace 200mg daily PRN -miralax #hypophosphatemia, resolved #hyperchloridemia, resolved #hypokalemia, resolved #hypernatremia, resolved #hypomagnesemia, resolved #oral thrush, resolved DVT Ppx heparin FEN PO fluids dysphagia puree diet code status DNR/DNI dispo waiting on placement Visit type - Emergency Visit Emergency Visit: Yes ED Registration Date: 05/18/19 Care time: The patient presented to the Emergency Department on the above date and was hospitalized for further evaluation of their emergent condition. - New Patient This patient is new to me today: No - Critical Care Critical Care patient: No - Discharge Referral Referred to [facility] No ATTENDING PHYSICIAN STATEMENT I saw and evaluated the patient. I reviewed the resident's note and discussed the case with the resident. I agree with the resident's findings and plan as documented. SUBJECTIVE: OBJECTIVE: ASSESSMENT AND PLAN:
--- NOTE | 2019-06-22 12:52 | PN ---
Teaching Attending Note Name of Resident: Padmaja Henderson ATTENDING PHYSICIAN STATEMENT I saw and evaluated the patient. I reviewed the resident's note and discussed the case with the resident. I agree with the resident's findings and plan as documented. SUBJECTIVE: Patient is comfortable with no new events. Vital Signs Temperature 97.3 F L 06/22/19 09:00 Pulse Rate 77 06/22/19 09:00 Respiratory Rate 18 06/22/19 09:00 Blood Pressure 117/70 06/22/19 09:00 O2 Sat by Pulse Oximetry (%) 100 06/22/19 09:00 GENERAL: The patient is nonverbal, contracted, but comfortable, cachectic HEAD: Normal with no signs of trauma. EYES: PERRL, EOMI, sclera anicteric, conjunctiva clear. ENT: Ears normal, dry mucus membrane , dry skin NECK: Trachea midline, full range of motion, supple. LUNGS: decreased Breath sounds bl , no wheezes, no crackles, no accessory muscle use. HEART: Regular rate and rhythm, S1, S2 positive, SHIMON 2/6 , no rub or gallop. ABDOMEN: Soft, NT,ND, normoactive bowel sounds, no guarding, no rebound, no hepatosplenomegaly, no masses. EXTREMITIES: 2+ pulses, warm, contracted LE , + edema 2+ NEUROLOGICAL: Cranial nerves II through XII grossly intact. gait not observed. PSYCH: non verbal , skin: Warm ,dry skin decub ulcer, stage 4, no discharge , no erythema, drainage from the right hip diminished . CBCD WBC 9.3 K/mm3 (4.0-10.0) 06/21/19 06:20 RBC 3.84 M/mm3 (3.60-5.2) 06/21/19 06:20 Hgb 10.6 GM/dL (10.7-15.3) L 06/21/19 06:20 Hct 32.6 % (32.4-45.2) 06/21/19 06:20 MCV 85.0 fl (80-96) 06/21/19 06:20 MCHC 32.5 g/dl (32.0-36.0) 06/21/19 06:20 RDW 19.1 % (11.6-15.6) H 06/21/19 06:20 Plt Count 378 K/MM3 (134-434) 06/21/19 06:20 MPV 8.2 fl (7.5-11.1) 06/21/19 06:20 CMP Sodium 141 mmol/L (136-145) 06/21/19 06:20 Potassium 4.0 mmol/L (3.5-5.1) 06/21/19 06:20 Chloride 107 mmol/L (98-107) 06/21/19 06:20 Carbon Dioxide 28 mmol/L (21-32) 06/21/19 06:20 Anion Gap 7 MMOL/L (8-16) L 06/21/19 06:20 BUN 10.8 mg/dL (7-18) 06/21/19 06:20 Creatinine 0.4 mg/dL (0.55-1.3) L 06/21/19 06:20 Random Glucose 69 mg/dL (74-106) L 06/21/19 06:20 Calcium 8.1 mg/dL (8.5-10.1) L 06/21/19 06:20 Total Bilirubin 0.2 mg/dL (0.2-1) 06/21/19 06:20 AST 10 U/L (15-37) L 06/21/19 06:20 ALT < 6 U/L (13-61) L 06/21/19 06:20 Alkaline Phosphatase 77 U/L (45-117) 06/21/19 06:20 Total Protein 4.1 g/dl (6.4-8.2) L 06/21/19 06:20 Albumin 1.4 g/dl (3.4-5.0) L 06/21/19 06:20 Current Medications Generic Name Dose Route Start Last Admin Trade Name Rona PRN Reason Stop Dose Admin Acetaminophen 750 mg 05/23/19 11:32 06/15/19 10:01 Ofirmev Injection - IVPB 750 mg Q6H PRN Administration PAIN LEVEL 6-10 Collagenase 1 applic 05/18/19 16:00 06/22/19 11:07 Santyl - TP 1 applic DAILY GLORY Administration Protocol Docusate Sodium 200 mg 06/14/19 19:33 06/19/19 10:13 Colace Liquid - PO 200 mg DAILY PRN Administration CONSTIPATION Heparin Sodium (Porcine) 5,000 unit 06/12/19 14:00 06/22/19 05:45 Heparin - SQ 5,000 unit TID GLORY Administration Cefazolin Sodium/Dextrose 2 gm in 50 mls @ 100 mls/hr 06/03/19 10:30 10:08 Ancef 2 Gm Premixed Ivpb - IVPB 100 mls/hr Q8H-IV GLORY Administration Polyethylene Glycol 17 gm 06/16/19 10:00 06/22/19 10:08 Miralax (For Daily Use) - PO 17 gm DAILY GLORY Administration Home Medications Medication Instructions Recorded Levothyroxine [Synthroid -] 50 mcg PO DAILY 06/21/14 Ranitidine [Zantac -] 150 mg PO BID #30 tablet 07/16/18 Cefazolin 2 gm/D5w [Ancef 2 gm 2 gm IVPB Q8H 16 Days ml 06/04/19 Premixed Ivpb -] Collagenase Clostridium Hist. 1 applic TP DAILY tube 06/04/19 [Santyl -] 05/24/19 11:20 Blood - Peripheral Venous Blood Culture - Final NO GROWTH AFTER 5 DAYS INCUBATION 05/24/19 10:00 Blood - Peripheral Venous Blood Culture - Final NO GROWTH AFTER 5 DAYS INCUBATION 05/21/19 07:20 Blood - Peripheral Venous Blood Culture - Final Staphylococcus Aureus 05/21/19 07:10 Blood - Peripheral Venous Blood Culture - Final Staphylococcus Aureus 05/19/19 12:05 Buttock - Right Gram Stain - Final 05/19/19 12:05 Buttock - Right Wound Culture - Final Escherichia Coli Pseudomonas Aeruginosa Staphylococcus Coagulase Neg Enterococcus Faecalis Proteus Mirabilis 05/17/19 22:32 Blood - Peripheral Venous Blood Culture - Final Staphylococcus Aureus 05/18/19 18:15 Blood - Peripheral Venous Blood Culture - Final Staphylococcus Aureus 05/18/19 18:00 Blood - Peripheral Venous Blood Culture - Final Staphylococcus Aureus 05/18/19 00:17 Urine - Urine Clean Catch Urine Culture - Final Klebsiella Pneumoniae 05/17/19 22:32 Blood - Peripheral Venous Blood Culture - Final Staphylococcus Aureus Assessment and plan: Patient is an 89yof with home hospice was brought in by the family member due to increased lethargy. # s/p severe sepsis: improved , continue IV antibiotics # MSSA bacteremia: cleared, cont. cefazolin needs total of 6 weeks. today day # hypotension: improved # Stage 4 Decub ulcer # Severe protein calorie malnutrition. # Cachexia : off clinimix now since patient is eating # hypernatremia: resolved # Klebsiella UTI # Anemia transfuse prn cont diet DVT Px: hep SQ bowel enema No new cx was recommended by ID placement is pending approval
[2019-06-23] MEDS: CEFAZOLIN 2 GM/D5W 2 GM/50 ML ML IVPB SCH ×3 (02:03→17:53)
[2019-06-23] MEDS: HEPARIN NA (PORCINE) 5,000 UNITS/ML 1ML VIAL SQ SCH ×3 (06:33→22:01)
[2019-06-23 08:33] LABS: BASO % 1.2 % (0-2.0); EOS % 2.5 % (0-4.5); HEMATOCRIT 33.3 % (32.4-45.2); HEMOGLOBIN 10.8 GM/dL (10.7-15.3); LYMPH % 17.2 % (8-40); MCH 27.5 pg (25.7-33.7); MCHC 32.4 g/dl (32.0-36.0); MEAN CELL VOLUME 84.9 fl (80-96); MEAN PLT VOLUME 8.6 fl (7.5-11.1); MONO % 5.3 % (3.8-10.2); NEUT % 73.8 % (42.8-82.8); PLATELET COUNT 347 K/MM3 (134-434); RBC 3.92 M/mm3 (3.60-5.2); WHITE BLOOD COUNT 10.1 K/mm3 (4.0-10.0)
[2019-06-23] MEDS: POLYETHYLENE GLYCOL 3350 119 GM BTL PO SCH (11:03)
[2019-06-23] MEDS: COLLAGENASE CLOSTRIDIUM HIST. 30 GRAMS TUBE TP SCH (11:03)
--- NOTE | 2019-06-23 17:34 | PN ---
Progress Note (short form) - Note Progress Note: Subjective: no events over night. son at bedside thinks mom is better Objective: Vital Signs: Last Vital Signs Temp Pulse Resp BP Pulse Ox 98.6 F 78 18 110/61 98 06/23/19 16:28 06/23/19 16:28 06/23/19 16:28 06/23/19 16:28 06/23/19 09:00 Laboratory Results - last 24 hr 06/23/19 06/23/19 06/23/19 05:28 06:30 06:30 WBC 10.1 H RBC 3.92 Hgb 10.8 Hct 33.3 MCV 84.9 MCH 27.5 MCHC 32.4 RDW 19.0 H Plt Count 347 MPV 8.6 Absolute Neuts (auto) 7.5 Neutrophils % 73.8 Lymphocytes % 17.2 D Monocytes % 5.3 Eosinophils % 2.5 Basophils % 1.2 Nucleated RBC % 0 Sodium Cancelled Potassium Cancelled Chloride Cancelled Carbon Dioxide Cancelled Anion Gap Cancelled BUN Cancelled Creatinine Cancelled Est GFR (CKD-EPI)AfAm Cancelled Est GFR (CKD-EPI)NonAf Cancelled POC Glucometer 73 Random Glucose Cancelled Calcium Cancelled Phosphorus Cancelled Magnesium Cancelled Total Bilirubin Cancelled AST Cancelled ALT Cancelled Alkaline Phosphatase Cancelled Total Protein Cancelled Albumin Cancelled Physical Exam: MMM. non verbal. CV: RRR. Lungs: clear anteriorly Abd: Soft, NT. ND . NL BS Ext: 1+ pitting edema feet A/p 1- Severe sepsis: improved 2- MSSA bacteremia: cleared 3- Endocarditis 4- hypotension: resolved 5- Stage 4 Decub ulcer 6- Severe protein calorie malnutrition. 7- Cachexia 8- hypernatremia: resolved 9- Klebsiella UTI 10- Anemia 11- constipation Plan: - cont cefazoline. needs total of 6 weeks. today day - cont diet - SQ for DVT px - bowel regimen. placement is pending : Visit type - Emergency Visit Emergency Visit: Yes ED Registration Date: 05/18/19 Care time: The patient presented to the Emergency Department on the above date and was hospitalized for further evaluation of their emergent condition. - New Patient This patient is new to me today: No - Critical Care Critical Care patient: No
[2019-06-24] MEDS: CEFAZOLIN 2 GM/D5W 2 GM/50 ML ML IVPB SCH ×3 (01:51→17:19)
[2019-06-24] MEDS: HEPARIN NA (PORCINE) 5,000 UNITS/ML 1ML VIAL SQ SCH ×3 (05:49→21:26)
[2019-06-24 08:15] LABS: BLOOD UREA NITROGEN 10.4 mg/dL (7-18); CREATININE 0.5 mg/dL (0.55-1.3); POTASSIUM 4.3 mmol/L (3.5-5.1)
[2019-06-24 08:22] LABS: BASO % 1.2 % (0-2.0); EOS % 2.4 % (0-4.5); HEMATOCRIT 33.7 % (32.4-45.2); HEMOGLOBIN 10.9 GM/dL (10.7-15.3); LYMPH % 15.7 % (8-40); MCH 27.3 pg (25.7-33.7); MCHC 32.2 g/dl (32.0-36.0); MEAN CELL VOLUME 84.7 fl (80-96); MEAN PLT VOLUME 8.7 fl (7.5-11.1); MONO % 5.8 % (3.8-10.2); NEUT % 74.9 % (42.8-82.8); PLATELET COUNT 325 K/MM3 (134-434); RBC 3.98 M/mm3 (3.60-5.2); RDW 19.1 % (11.6-15.6); WHITE BLOOD COUNT 8.7 K/mm3 (4.0-10.0)
[2019-06-24] MEDS: POLYETHYLENE GLYCOL 3350 119 GM BTL PO SCH (11:09)
[2019-06-24] MEDS: COLLAGENASE CLOSTRIDIUM HIST. 30 GRAMS TUBE TP SCH (11:09)
--- NOTE | 2019-06-24 12:36 | PN ---
Physical Exam: SUBJECTIVE: Patient seen and examined. She is non-verbal. OBJECTIVE: Vital Signs Period Temp Pulse Resp BP Sys/Chinchilla Pulse Ox Last 24 Hr 98.4 F-98.8 F 78-94 18-18 99-113/56-67 99 GENERAL: Awake and alert, not in distress. HEAD: Normal with no signs of trauma. Tooth loss. EYES: Conjunctiva clear. EOM intact. ENT: Ears normal, nares patent, moist mucous membranes NECK: Trachea midline LUNGS: Clear to auscultation bilaterally, no wheezes HEART: Regular rate and irregular rhythm, 3/6 systolic murmur ABDOMEN: Distended, non-tender on palpation, normoactive bowel sounds BACK: stage 4 sacral ulcer and right trochanteric ulcer with small amount of drainage EXTREMITIES: well-perfused, +1 pitting edema b/l foot, right arm PICC with no erythema, arms contracted NEUROLOGICAL: Cannot be assessed. PSYCH: Cannot be assessed. SKIN: Warm, dry Laboratory Results - last 24 hr 06/23/19 06/24/19 06/24/19 17:49 05:23 06:45 WBC 8.7 RBC 3.98 Hgb 10.9 Hct 33.7 MCV 84.7 MCH 27.3 MCHC 32.2 RDW 19.1 H Plt Count 325 MPV 8.7 Absolute Neuts (auto) 6.5 Neutrophils % 74.9 Lymphocytes % 15.7 Monocytes % 5.8 Eosinophils % 2.4 Basophils % 1.2 Nucleated RBC % 0 Sodium Potassium Chloride Carbon Dioxide Anion Gap BUN Creatinine Est GFR (CKD-EPI)AfAm Est GFR (CKD-EPI)NonAf POC Glucometer 109 76 Random Glucose Calcium 06/24/19 06:45 WBC RBC Hgb Hct MCV MCH MCHC RDW Plt Count MPV Absolute Neuts (auto) Neutrophils % Lymphocytes % Monocytes % Eosinophils % Basophils % Nucleated RBC % Sodium 142 Potassium 4.3 Chloride 108 H Carbon Dioxide 29 Anion Gap 5 L BUN 10.4 Creatinine 0.5 L Est GFR (CKD-EPI)AfAm 99.45 Est GFR (CKD-EPI)NonAf 85.81 POC Glucometer Random Glucose 73 L Calcium 8.0 L Active Medications Generic Name Dose Route Start Last Admin Trade Name Freq PRN Reason Stop Dose Admin Acetaminophen 750 mg 05/23/19 11:32 06/15/19 10:01 Ofirmev Injection - IVPB 750 mg Q6H PRN Administration PAIN LEVEL 6-10 Collagenase 1 applic 05/18/19 16:00 06/24/19 11:09 Santyl - TP 1 applic DAILY GLORY Administration Protocol Docusate Sodium 200 mg 06/14/19 19:33 06/19/19 10:13 Colace Liquid - PO 200 mg DAILY PRN Administration CONSTIPATION Heparin Sodium (Porcine) 5,000 unit 06/12/19 14:00 06/24/19 05:49 Heparin - SQ 5,000 unit TID GLORY Administration Cefazolin Sodium/Dextrose 2 gm in 50 mls @ 100 mls/hr 06/03/19 10:30 11:09 Ancef 2 Gm Premixed Ivpb - IVPB 100 mls/hr Q8H-IV GLORY Administration Polyethylene Glycol 17 gm 06/16/19 10:00 06/24/19 11:09 Miralax (For Daily Use) - PO Not Given DAILY GLORY ASSESSMENT/PLAN: Ms. Rust is an 89y/o female (hospice patient prior to admission) with dementia , HTN, recurrent UTI, constipation, hypothyroidism, and malnutrition who presents with increased weakness and lethargy. Pt was admitted for severe sepsis 2/2 UTI and bacteremia. 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, improved -last set of blood cx now negative 05/24 -Cefazolin 2gm Q8H, continue for 6 weeks after negative cx (07/04/19 end date) #stage 4 decubitus ulcer, sacral and right trochanteric -drainage present but does not need to be cultured -continue abx -monitor #severe dehydration and malnutrition, improved -dextrose PRN with BGM -dysphagia diet -dietary following #microcytic anemia s/p 2 units PRBCs -Hb improved -3 total this admission -monitor CBC, no overt signs of bleeding #constipation, improved -colace 200mg daily PRN -miralax #hypophosphatemia, resolved #hyperchloridemia, resolved #hypokalemia, resolved #hypernatremia, resolved #hypomagnesemia, resolved #oral thrush, resolved DVT Ppx heparin FEN PO fluids dysphagia puree diet code status DNR/DNI dispo waiting on placement Visit type - Emergency Visit Emergency Visit: Yes ED Registration Date: 05/18/19 Care time: The patient presented to the Emergency Department on the above date and was hospitalized for further evaluation of their emergent condition. - New Patient This patient is new to me today: No - Critical Care Critical Care patient: No - Discharge Referral Referred to [facility] No ATTENDING PHYSICIAN STATEMENT I saw and evaluated the patient. I reviewed the resident's note and discussed the case with the resident. I agree with the resident's findings and plan as documented. SUBJECTIVE: OBJECTIVE: ASSESSMENT AND PLAN:
--- NOTE | 2019-06-24 15:53 | PN ---
Teaching Attending Note Name of Resident: Padmaja Henderson ATTENDING PHYSICIAN STATEMENT I saw and evaluated the patient. I reviewed the resident's note and discussed the case with the resident. I agree with the resident's findings and plan as documented. SUBJECTIVE: No events over night OBJECTIVE: MMM. non verbal. CV: RRR. Lungs: clear anteriorly Abd: Soft, NT. ND. NL BS Ext: 1+ pitting edema feet stage 4 sacral wound with blue discoloration of the gauze but the wound base is clean. R posterior hip decub was not evaluated today A/p 1- Severe sepsis: improved 2- MSSA bacteremia: cleared 3- Endocarditis 4- hypotension: resolved 5- Stage 4 Decub ulcer 6- Severe protein calorie malnutrition. 7- Cachexia 8- hypernatremia: resolved 9- Klebsiella UTI 10- Anemia 11- constipation Plan: - cont cefazoline. needs total of 6 weeks. today day 32/42 - cont diet - SQ heparin for DVT px - bowel regimen. placement is pending
[2019-06-25] MEDS: CEFAZOLIN 2 GM/D5W 2 GM/50 ML ML IVPB SCH ×3 (02:26→18:11)
[2019-06-25] MEDS: HEPARIN NA (PORCINE) 5,000 UNITS/ML 1ML VIAL SQ SCH ×3 (06:01→22:28)
[2019-06-25] MEDS: POLYETHYLENE GLYCOL 3350 119 GM BTL PO SCH (10:06)
[2019-06-25 10:54] LABS: HEMATOCRIT 37.3 % (32.4-45.2); HEMOGLOBIN 11.9 GM/dL (10.7-15.3); MCH 27.3 pg (25.7-33.7); MEAN CELL VOLUME 85.5 fl (80-96); MEAN PLT VOLUME 8.6 fl (7.5-11.1); PLATELET COUNT 329 K/MM3 (134-434); RBC 4.36 M/mm3 (3.60-5.2); WHITE BLOOD COUNT 9.7 K/mm3 (4.0-10.0)
[2019-06-25] MEDS: COLLAGENASE CLOSTRIDIUM HIST. 30 GRAMS TUBE TP SCH (14:24)
--- NOTE | 2019-06-25 17:21 | PN ---
Teaching Attending Note Name of Resident: Padmaja Henderson ATTENDING PHYSICIAN STATEMENT I saw and evaluated the patient. I reviewed the resident's note and discussed the case with the resident. I agree with the resident's findings and plan as documented. SUBJECTIVE: unable to provide hx. No events over night OBJECTIVE: MMM. Non verbal. CV: RRR. Lungs: clear anteriorly Abd: Soft, NT. ND. NL BS Ext: 1+ pitting edema feet A/P : 1- Severe sepsis: resolved 2- MSSA bacteremia: cleared 3- Endocarditis 4- hypotension: resolved 5- Stage 4 Decub ulcer 6- Severe protein calorie malnutrition. 7- Cachexia 8- hypernatremia: resolved 9- Klebsiella UTI 10- Anemia 11- constipation Plan: - cont cefazoline. today day - cont diet - SQ heparin for DVT px - bowel regimen. placement is pending
[2019-06-26] MEDS: CEFAZOLIN 2 GM/D5W 2 GM/50 ML ML IVPB SCH ×3 (01:51→18:12)
[2019-06-26] MEDS: HEPARIN NA (PORCINE) 5,000 UNITS/ML 1ML VIAL SQ SCH ×3 (06:43→21:16)
[2019-06-26] MEDS: POLYETHYLENE GLYCOL 3350 119 GM BTL PO SCH (09:44)
[2019-06-26] MEDS: COLLAGENASE CLOSTRIDIUM HIST. 30 GRAMS TUBE TP SCH (09:46)
--- NOTE | 2019-06-26 13:49 | PN ---
Physical Exam: SUBJECTIVE: Patient seen and examined in bed. Pt non-verbal. No events overnight. OBJECTIVE: Vital Signs Period Temp Pulse Resp BP Sys/Chinchilla Pulse Ox Last 24 Hr 97.1 F-98.6 F 77-89 18-20 105-132/64-77 99-100 GENERAL: Alert, non-verbal HEAD: NCAT EYES: DAMON, EOMI, conjunctiva clear. ENT: Ears normal, nares patent, oropharynx clear without exudates. Moist mucous membranes. NECK: No lymphadenopathy or masses. LUNGS: CTAB. No wheezes, and no crackles. No accessory muscle use. HEART: RRR s1 s2 ABDOMEN: Soft, BS present in all 4 quadrants, non-distended, no JVD, MUSCULOSKELETAL: Arthritis changes. No bony deformities or tenderness. No CVA tenderness. UPPER EXTREMITIES: 2+ pulses, warm, well-perfused. No cyanosis. No clubbing. 1+ peripheral edema. LOWER EXTREMITIES: Feet/heels placed in cushions. 2+ pulses, warm, well- perfused. No calf tenderness. No peripheral edema. NEUROLOGICAL: No focal deficits. Gait not appreciated. SKIN: Stage 4 decubitus ulcer, sacral and right trochanteric. Warm, dry, normal turgor, no rashes or lesions noted, normal capillary refill. Laboratory Results - last 24 hr 06/25/19 06/26/19 17:30 06:09 POC Glucometer 79 78 Active Medications Generic Name Dose Route Start Last Admin Trade Name Freq PRN Reason Stop Dose Admin Acetaminophen 750 mg 05/23/19 11:32 06/15/19 10:01 Ofirmev Injection - IVPB 750 mg Q6H PRN Administration PAIN LEVEL 6-10 Collagenase 1 applic 05/18/19 16:00 06/26/19 09:46 Santyl - TP 1 applic DAILY GLORY Administration Protocol Docusate Sodium 200 mg 06/14/19 19:33 06/19/19 10:13 Colace Liquid - PO 200 mg DAILY PRN Administration CONSTIPATION Heparin Sodium (Porcine) 5,000 unit 06/12/19 14:00 06/26/19 06:43 Heparin - SQ 5,000 unit TID GLORY Administration Cefazolin Sodium/Dextrose 2 gm in 50 mls @ 100 mls/hr 06/03/19 10:30 09:43 Ancef 2 Gm Premixed Ivpb - IVPB 100 mls/hr Q8H-IV GLORY Administration Polyethylene Glycol 17 gm 06/16/19 10:00 06/26/19 09:44 Miralax (For Daily Use) - PO 17 gm DAILY GLORY Administration ASSESSMENT/PLAN: 89y/o female PMH hospice care, dementia, HTN, recurrent UTI, constipation, hypothyroidism, and malnutrition whom presents with increased weakness and lethargy. Pt was admitted for severe sepsis 2/2 UTI and bacteremia. # Severe sepsis 2/2 staph aureus bacteremia with presumed endocarditis, improved - Last set of blood cx now negative 05/24 - Cefazolin 2gm Q8H, continue for 6 weeks after negative cx (07/04/19 end date) # Stage 4 decubitus ulcer, sacral and right trochanteric - Drainage present but does not need to be cultured - Continue cefazolin 2gm IV q8h day - Turn and reposition q2h - Collagenase applied QD # Severe dehydration and malnutrition, improved - Dextrose PRN with BGM - Dysphagia diet - Dietary following # Microcytic anemia s/p 2 units PRBCs - Hb improved: 9.7 today - 3 total units PRBC this admission - Monitor CBC, no overt signs of bleeding # Constipation, improved - Docusate 200 mg PO QD PRN - Miralax 17 g PO QD #hypophosphatemia, resolved #hyperchloridemia, resolved #hypokalemia, resolved #hypernatremia, resolved #hypomagnesemia, resolved #oral thrush, resolved # DVT Ppx - Heparin 5,000 units sq TID # FEN - PO - Cont. to monitor - Dysphagia puree diet # Dispo - code status DNR/DNI - waiting on placement Visit type - Emergency Visit Emergency Visit: No - New Patient This patient is new to me today: No - Critical Care Critical Care patient: No ATTENDING PHYSICIAN STATEMENT I saw and evaluated the patient. I reviewed the resident's note and discussed the case with the resident. I agree with the resident's findings and plan as documented. SUBJECTIVE: OBJECTIVE: ASSESSMENT AND PLAN:
--- NOTE | 2019-06-26 18:06 | PN ---
Teaching Attending Note Name of Resident: Ricki Marin ATTENDING PHYSICIAN STATEMENT I saw and evaluated the patient. I reviewed the resident's note and discussed the case with the resident. I agree with the resident's findings and plan as documented. SUBJECTIVE: can't obtain any hx . no events over nigth OBJECTIVE: MMM. Non verbal.awake, tracts. said hi CV: RRR. Lungs: CTAB Abd: Soft, NT. ND. NL BS Ext: 1+ pitting edema feet . no ulcers on heels A/P : 1- Severe sepsis: resolved 2- MSSA bacteremia: cleared 3- Endocarditis 4- hypotension: resolved 5- Stage 4 Decub ulcer 6- Severe protein calorie malnutrition. 7- Cachexia 8- hypernatremia: resolved 9- Klebsiella UTI 10- Anemia 11- constipation Plan: - cont cefazoline. today day 34/42 - cont diet - SQ heparin for DVT px - bowel regimen. placement is pending
[2019-06-27] MEDS: CEFAZOLIN 2 GM/D5W 2 GM/50 ML ML IVPB SCH ×3 (02:27→18:00)
[2019-06-27] MEDS: HEPARIN NA (PORCINE) 5,000 UNITS/ML 1ML VIAL SQ SCH ×3 (06:12→21:14)
[2019-06-27 07:38] LABS: HEMATOCRIT 31.8 % (32.4-45.2); HEMOGLOBIN 10.2 GM/dL (10.7-15.3); MCH 27.2 pg (25.7-33.7); MCHC 32.1 g/dl (32.0-36.0); MEAN CELL VOLUME 84.9 fl (80-96); MEAN PLT VOLUME 8.6 fl (7.5-11.1); PLATELET COUNT 280 K/MM3 (134-434); RBC 3.74 M/mm3 (3.60-5.2); RDW 19.4 % (11.6-15.6); WHITE BLOOD COUNT 9.3 K/mm3 (4.0-10.0)
[2019-06-27 08:05] LABS: BLOOD UREA NITROGEN 11.8 mg/dL (7-18); CALCIUM 7.9 mg/dL (8.5-10.1); CREATININE 0.4 mg/dL (0.55-1.3)
[2019-06-27] MEDS: POLYETHYLENE GLYCOL 3350 119 GM BTL PO SCH (10:12)
--- NOTE | 2019-06-27 14:35 | PN ---
Progress Note (short form) - Note Progress Note: Subjective: no events over night Objective: Vital Signs: Last Vital Signs Temp Pulse Resp BP Pulse Ox 98.1 F 78 20 103/51 L 99 06/27/19 09:58 06/27/19 09:58 06/27/19 09:58 06/27/19 09:58 06/26/19 21:00 Laboratory Results - last 24 hr 06/26/19 06/27/19 06/27/19 16:56 06:00 06:00 WBC 9.3 RBC 3.74 Hgb 10.2 L Hct 31.8 L MCV 84.9 MCH 27.2 MCHC 32.1 RDW 19.4 H Plt Count 280 MPV 8.6 Sodium 140 Potassium 4.0 Chloride 106 Carbon Dioxide 30 Anion Gap 5 L BUN 11.8 Creatinine 0.4 L Est GFR (CKD-EPI)AfAm 107.03 Est GFR (CKD-EPI)NonAf 92.34 POC Glucometer 85 Random Glucose 76 Calcium 7.9 L Phosphorus 3.0 Magnesium 2.0 06/27/19 06:05 WBC RBC Hgb Hct MCV MCH MCHC RDW Plt Count MPV Sodium Potassium Chloride Carbon Dioxide Anion Gap BUN Creatinine Est GFR (CKD-EPI)AfAm Est GFR (CKD-EPI)NonAf POC Glucometer 70 Random Glucose Calcium Phosphorus Magnesium Physical Exam: MMM. Non verbal.awake, tracts. said hi CV: RRR. Lungs: CTAB Abd: Soft, NT. ND. NL BS Ext: 1+ pitting edema feet . no ulcers on heels A/P : 1- Severe sepsis: resolved 2- MSSA bacteremia: cleared 3- Endocarditis 4- hypotension: resolved 5- Stage 4 Decub ulcer 6- Severe protein calorie malnutrition. 7- Cachexia 8- hypernatremia: resolved 9- Klebsiella UTI 10- Anemia 11- constipation Plan: - cont cefazoline. today day 35/42 - cont diet - SQ heparin for DVT px - bowel regimen. - labs reviewed. placement is pending Visit type - Emergency Visit Emergency Visit: Yes ED Registration Date: 05/18/19 Care time: The patient presented to the Emergency Department on the above date and was hospitalized for further evaluation of their emergent condition. - New Patient This patient is new to me today: No - Critical Care Critical Care patient: No
[2019-06-27] MEDS: COLLAGENASE CLOSTRIDIUM HIST. 30 GRAMS TUBE TP SCH (15:13)
[2019-06-28] MEDS: CEFAZOLIN 2 GM/D5W 2 GM/50 ML ML IVPB SCH ×3 (01:08→17:16)
[2019-06-28] MEDS: HEPARIN NA (PORCINE) 5,000 UNITS/ML 1ML VIAL SQ SCH ×3 (05:32→22:21)
[2019-06-28] MEDS ORDERED: PT OWN MED DRAWER 7, Y5N ONE (08:24)
[2019-06-28] MEDS: POLYETHYLENE GLYCOL 3350 119 GM BTL PO SCH (10:44)
[2019-06-28] MEDS: COLLAGENASE CLOSTRIDIUM HIST. 30 GRAMS TUBE TP SCH (11:17)
--- NOTE | 2019-06-28 13:12 | PN ---
Physical Exam: SUBJECTIVE: Patient seen and examined. Pt is non-verbal. OBJECTIVE: Vital Signs Period Temp Pulse Resp BP Sys/Chinchilla Pulse Ox Last 24 Hr 98.9 F-99.3 F 80-86 20-20 107-120/57-65 GENERAL: Awake and alert, not in distress. HEAD: Normal with no signs of trauma. Tooth loss. EYES: Conjunctiva clear. EOM intact. ENT: Ears normal, nares patent, moist mucous membranes NECK: Trachea midline LUNGS: Clear to auscultation bilaterally, no wheezes HEART: Regular rate and rhythm, 3/6 systolic murmur ABDOMEN: Non-distended non-tender on palpation, normoactive bowel sounds BACK: stage 4 sacral ulcer and right trochanteric ulcer EXTREMITIES: well-perfused, +1 pitting edema left foot, trace edema right foot, right arm PICC with no erythema, arms contracted NEUROLOGICAL: Cannot be assessed. PSYCH: Cannot be assessed. SKIN: Warm, dry Laboratory Results - last 24 hr 06/27/19 06/28/19 17:23 05:27 POC Glucometer 110 93 Active Medications Generic Name Dose Route Start Last Admin Trade Name Freq PRN Reason Stop Dose Admin Acetaminophen 750 mg 05/23/19 11:32 06/15/19 10:01 Ofirmev Injection - IVPB 750 mg Q6H PRN Administration PAIN LEVEL 6-10 Collagenase 1 applic 05/18/19 16:00 06/27/19 15:13 Santyl - TP 1 applic DAILY GLORY Administration Protocol Docusate Sodium 200 mg 06/14/19 19:33 06/19/19 10:13 Colace Liquid - PO 200 mg DAILY PRN Administration CONSTIPATION Heparin Sodium (Porcine) 5,000 unit 06/12/19 14:00 06/28/19 05:32 Heparin - SQ 5,000 unit TID GLORY Administration Cefazolin Sodium/Dextrose 2 gm in 50 mls @ 100 mls/hr 06/03/19 10:30 09:40 Ancef 2 Gm Premixed Ivpb - IVPB 100 mls/hr Q8H-IV GLORY Administration Polyethylene Glycol 17 gm 06/16/19 10:00 06/28/19 10:44 Miralax (For Daily Use) - PO Not Given DAILY GLORY ASSESSMENT/PLAN: Ms. Rust is an 89y/o female (hospice patient prior to admission) with dementia , HTN, recurrent UTI, constipation, hypothyroidism, and malnutrition who presents with increased weakness and lethargy. Pt was admitted for severe sepsis 2/2 UTI and bacteremia. 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, improved -last set of blood cx negative on 05/24 -Cefazolin 2gm Q8H, continue for 6 weeks after negative cx (07/04/19 end date) #stage 4 decubitus ulcer, sacral and right trochanteric -drainage present but does not need to be cultured -continue abx -monitor #severe dehydration and malnutrition, improved -dextrose PRN with BGM -dysphagia diet -dietary following #microcytic anemia s/p 2 units PRBCs -Hb improved -3 total this admission #constipation, improved -colace 200mg daily PRN -miralax #dysphagia -re-evaluate as pt is on miralax and needs to be able to drink water for administration #hypophosphatemia, resolved #hyperchloridemia, resolved #hypokalemia, resolved #hypernatremia, resolved #hypomagnesemia, resolved #oral thrush, resolved DVT Ppx heparin FEN PO fluids dysphagia puree diet code status DNR/DNI dispo waiting on placement, insurance available on 06/30/19 for placement Visit type - Emergency Visit Emergency Visit: Yes ED Registration Date: 05/18/19 Care time: The patient presented to the Emergency Department on the above date and was hospitalized for further evaluation of their emergent condition. - New Patient This patient is new to me today: No - Critical Care Critical Care patient: No - Discharge Referral Referred to [facility] Med P.C.: No ATTENDING PHYSICIAN STATEMENT I saw and evaluated the patient. I reviewed the resident's note and discussed the case with the resident. I agree with the resident's findings and plan as documented. SUBJECTIVE: OBJECTIVE: ASSESSMENT AND PLAN:
--- NOTE | 2019-06-28 14:58 | PN ---
Teaching Attending Note Name of Resident: Padmaja Henderson ATTENDING PHYSICIAN STATEMENT I saw and evaluated the patient. I reviewed the resident's note and discussed the case with the resident. I agree with the resident's findings and plan as documented. SUBJECTIVE: No events over night. OBJECTIVE: MMM. Non verbal.awake, tracts. CV: RRR. Lungs: CTAB Abd: Soft, NT. ND. NL BS Ext: 1+ pitting edema feet. no ulcers on heels. A/P: 1- Severe sepsis: resolved 2- MSSA bacteremia: cleared 3- Endocarditis 4- hypotension: resolved 5- Stage 4 Decub ulcer 6- Severe protein calorie malnutrition. 7- Cachexia 8- hypernatremia: resolved 9- Klebsiella UTI 10- Anemia 11- constipation Plan: - cont cefazoline. today day 36/ - cont diet - SQ heparin for DVT px. - bowel regimen. placement is pending A
--- NOTE | 2019-06-28 15:58 | PN ---
Progress Note, ACUTE DIALYSIS NURSE - Note Progress Note: Selected Entries 06/27/19 06/27/19 06/27/19 02:25 09:58 10:00 Breakfast 50% Lunch 75% Supper Temperature 99.2 F 98.1 F 06/27/19 06/27/19 14:41 18:00 Breakfast Lunch Supper 75% Temperature 98.9 F 98.9 F Asked to re-evaluation pt for tolerance of thin liquids to enabl pt to tolerate 8 oz of water with Miralax. Pt reassessed with son feeding her single sips of water from a cup. Oral holding with delayed, brisk swallow without signs of aspiration. Trial of Puree/thin liquid-single sips, no continuous drinking Monitor PO tolerance OK to put Miralax in water
[2019-06-28] MEDS ORDERED: SENNOSIDES/DOCUSATE COMBO (SENNA PLUS) TABLET (UD) PO SCH (22:00)
[2019-06-29] MEDS: CEFAZOLIN 2 GM/D5W 2 GM/50 ML ML IVPB SCH ×3 (02:06→18:21)
[2019-06-29] MEDS: HEPARIN NA (PORCINE) 5,000 UNITS/ML 1ML VIAL SQ SCH ×3 (06:13→21:38)
[2019-06-29] MEDS: COLLAGENASE CLOSTRIDIUM HIST. 30 GRAMS TUBE TP SCH (12:00)
--- NOTE | 2019-06-29 13:10 | PN ---
Progress Note, [employer] - Note Progress Note: Selected Entries 06/27/19 06/27/19 06/27/19 02:25 09:58 10:00 Breakfast 50% Lunch 75% Supper Temperature 99.2 F 98.1 F 06/27/19 06/27/19 14:41 18:00 Breakfast Lunch Supper 75% Temperature 98.9 F 98.9 F Selected Entries 06/29/19 10:00 Breakfast 50% Laboratory Tests 06/27/19 06:00 WBC 9.3 Trial of sips of water from a cup. Oral holding with delayed, brisk swallow without signs of aspiration. Trial of Puree/thin liquid-single sips, no continuous drinking Monitor PO tolerance OK to put Miralax in water
[2019-06-29] MEDS: POLYETHYLENE GLYCOL 3350 119 GM BTL PO SCH (14:12)
--- NOTE | 2019-06-29 15:40 | PN ---
Physical Exam: SUBJECTIVE: Patient seen and examined. Pt is non-verbal. OBJECTIVE: Vital Signs Period Temp Pulse Resp BP Sys/Chinchilla Pulse Ox Last 24 Hr 98.3 F-99.1 F 75-81 18-20 104-135/48-62 100 GENERAL: Awake and alert, not in distress. HEAD: Normal with no signs of trauma. Tooth loss. EYES: Conjunctiva clear. EOM intact. ENT: Ears normal, nares patent, moist mucous membranes NECK: Trachea midline LUNGS: Clear to auscultation bilaterally, no wheezes HEART: Regular rate and rhythm, 3/6 systolic murmur ABDOMEN: Non-distended non-tender on palpation, normoactive bowel sounds BACK: stage 4 sacral ulcer and right trochanteric ulcer EXTREMITIES: well-perfused, +1 pitting edema left foot, trace edema right foot, right arm PICC with no erythema, arms contracted NEUROLOGICAL: Cannot be assessed. PSYCH: Cannot be assessed. SKIN: Warm, dry Laboratory Results - last 24 hr 06/28/19 06/29/19 17:00 06:03 POC Glucometer 102 109 Active Medications Generic Name Dose Route Start Last Admin Trade Name Freq PRN Reason Stop Dose Admin Acetaminophen 750 mg 05/23/19 11:32 06/15/19 10:01 Ofirmev Injection - IVPB 750 mg Q6H PRN Administration PAIN LEVEL 6-10 Bisacodyl 5 mg 06/29/19 10:00 Dulcolax - PO DAILY GLORY Collagenase 1 applic 05/18/19 16:00 06/29/19 12:00 Santyl - TP 1 applic DAILY GLORY Administration Protocol Docusate Sodium 200 mg 06/14/19 19:33 06/19/19 10:13 Colace Liquid - PO 200 mg DAILY PRN Administration CONSTIPATION Heparin Sodium (Porcine) 5,000 unit 06/12/19 14:00 06/29/19 14:04 Heparin - SQ 5,000 unit TID GLORY Administration Cefazolin Sodium/Dextrose 2 gm in 50 mls @ 100 mls/hr 06/03/19 10:30 10:30 Ancef 2 Gm Premixed Ivpb - IVPB 100 mls/hr Q8H-IV GLORY Administration Polyethylene Glycol 17 gm 06/29/19 13:00 06/29/19 14:12 Miralax (For Daily Use) - PO 17 grams DAILY GLORY Administration ASSESSMENT/PLAN: Ms. Rust is an 89y/o female (hospice patient prior to admission) with dementia , HTN, recurrent UTI, constipation, hypothyroidism, and malnutrition who presents with increased weakness and lethargy. Pt was admitted for severe sepsis 2/2 UTI and bacteremia. 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, improved -last set of blood cx negative on 05/24 -Cefazolin 2gm Q8H, continue for 6 weeks after negative cx (07/04/19 end date) #stage 4 decubitus ulcer, sacral and right trochanteric -drainage present but does not need to be cultured -continue abx -monitor #severe dehydration and malnutrition, improved -dextrose PRN with BGM -dysphagia diet -dietary following #microcytic anemia s/p 2 units PRBCs -Hb improved -3 total this admission #constipation, improved -colace 200mg daily PRN -miralax #dysphagia -pt is able to drink miralax mixed with water #hypophosphatemia, resolved #hyperchloridemia, resolved #hypokalemia, resolved #hypernatremia, resolved #hypomagnesemia, resolved #oral thrush, resolved DVT Ppx heparin FEN PO fluids dysphagia puree diet code status DNR/DNI dispo waiting on placement, insurance available on 06/30/19 for placement Visit type - Emergency Visit Emergency Visit: Yes ED Registration Date: 05/18/19 Care time: The patient presented to the Emergency Department on the above date and was hospitalized for further evaluation of their emergent condition. - New Patient This patient is new to me today: No - Critical Care Critical Care patient: No - Discharge Referral Referred to [facility] Med P.C.: No ATTENDING PHYSICIAN STATEMENT I saw and evaluated the patient. I reviewed the resident's note and discussed the case with the resident. I agree with the resident's findings and plan as documented. SUBJECTIVE: OBJECTIVE: ASSESSMENT AND PLAN:
[2019-06-29] MEDS: BISACODYL 5 MG TABLET.DR (FP) PO SCH (15:44)
--- NOTE | 2019-06-29 17:12 | PN ---
Teaching Attending Note Name of Resident: Padmaja Henderson ATTENDING PHYSICIAN STATEMENT I saw and evaluated the patient. I reviewed the resident's note and discussed the case with the resident. I agree with the resident's findings and plan as documented. SUBJECTIVE: no events OBJECTIVE: MMM. Non verbal.awake, tracts. CV: RRR. Lungs: CTAB Abd: Soft, NT. ND. NL BS Ext: 1+ pitting edema feet. A/P: 1- Severe sepsis: resolved 2- MSSA bacteremia: cleared 3- Endocarditis 4- Hypotension: resolved 5- Stage 4 Decub ulcer 6- Severe protein calorie malnutrition. 7- Cachexia 8- hypernatremia: resolved 9- Klebsiella UTI 10- Anemia 11- constipation Plan: - cont cefazoline. today day 37/42 - cont diet - SQ heparin for DVT px. - bowel regimen. placement is pending
[2019-06-30] MEDS: CEFAZOLIN 2 GM/D5W 2 GM/50 ML ML IVPB SCH ×3 (02:03→18:07)
[2019-06-30] MEDS: HEPARIN NA (PORCINE) 5,000 UNITS/ML 1ML VIAL SQ SCH ×3 (06:05→21:25)
--- NOTE | 2019-06-30 08:32 | PN ---
Teaching Attending Note Name of Resident: Padmaja Henderson ATTENDING PHYSICIAN STATEMENT I saw and evaluated the patient. I reviewed the resident's note and discussed the case with the resident. I agree with the resident's findings and plan as documented. SUBJECTIVE: No new changes, comfortable with no acute distress. Vital Signs Temperature 98 F 06/30/19 07:20 Pulse Rate 77 06/30/19 07:20 Respiratory Rate 18 06/30/19 07:20 Blood Pressure 109/47 L 06/30/19 07:20 O2 Sat by Pulse Oximetry (%) 97 06/29/19 21:00 GENERAL: The patient is nonverbal, contracted, but comfortable, cachectic HEAD: Normal with no signs of trauma. EYES: PERRL, EOMI, sclera anicteric, conjunctiva clear. ENT: Ears normal, dry mucus membrane , dry skin NECK: Trachea midline, full range of motion, supple. LUNGS: decreased Breath sounds bl , no wheezes, no crackles, no accessory muscle use. HEART: Regular rate and rhythm, S1, S2 positive, SHIMON 2/6 , no rub or gallop. ABDOMEN: Soft, NT,ND, normoactive bowel sounds, no guarding, no rebound, no hepatosplenomegaly, no masses. EXTREMITIES: 2+ pulses, warm, contracted LE , + edema 2+ NEUROLOGICAL: Cranial nerves II through XII grossly intact. gait not observed. PSYCH: non verbal , skin: Warm ,dry skin decub ulcer, stage 4, no discharge , no erythema, drainage from the right hip diminished . CBCD WBC 9.3 K/mm3 (4.0-10.0) 06/27/19 06:00 RBC 3.74 M/mm3 (3.60-5.2) 06/27/19 06:00 Hgb 10.2 GM/dL (10.7-15.3) L 06/27/19 06:00 Hct 31.8 % (32.4-45.2) L 06/27/19 06:00 MCV 84.9 fl (80-96) 06/27/19 06:00 MCHC 32.1 g/dl (32.0-36.0) 06/27/19 06:00 RDW 19.4 % (11.6-15.6) H 06/27/19 06:00 Plt Count 280 K/MM3 (134-434) 06/27/19 06:00 MPV 8.6 fl (7.5-11.1) 06/27/19 06:00 CMP Sodium 140 mmol/L (136-145) 06/27/19 06:00 Potassium 4.0 mmol/L (3.5-5.1) 06/27/19 06:00 Chloride 106 mmol/L (98-107) 06/27/19 06:00 Carbon Dioxide 30 mmol/L (21-32) 06/27/19 06:00 Anion Gap 5 MMOL/L (8-16) L 06/27/19 06:00 BUN 11.8 mg/dL (7-18) 06/27/19 06:00 Creatinine 0.4 mg/dL (0.55-1.3) L 06/27/19 06:00 Random Glucose 76 mg/dL (74-106) 06/27/19 06:00 Calcium 7.9 mg/dL (8.5-10.1) L 06/27/19 06:00 Total Bilirubin 0.2 mg/dL (0.2-1) 06/21/19 06:20 AST 10 U/L (15-37) L 06/21/19 06:20 ALT < 6 U/L (13-61) L 06/21/19 06:20 Alkaline Phosphatase 77 U/L (45-117) 06/21/19 06:20 Total Protein 4.1 g/dl (6.4-8.2) L 06/21/19 06:20 Albumin 1.4 g/dl (3.4-5.0) L 06/21/19 06:20 Current Medications Generic Name Dose Route Start Last Admin Trade Name Rona PRN Reason Stop Dose Admin Acetaminophen 750 mg 05/23/19 11:32 06/15/19 10:01 Ofirmev Injection - IVPB 750 mg Q6H PRN Administration PAIN LEVEL 6-10 Bisacodyl 5 mg 06/29/19 10:00 06/29/19 15:44 Dulcolax - PO Not Given DAILY GLORY Collagenase 1 applic 05/18/19 16:00 06/29/19 12:00 Santyl - TP 1 applic DAILY GLORY Administration Protocol Docusate Sodium 200 mg 06/14/19 19:33 06/19/19 10:13 Colace Liquid - PO 200 mg DAILY PRN Administration CONSTIPATION Heparin Sodium (Porcine) 5,000 unit 06/12/19 14:00 06/30/19 06:05 Heparin - SQ 5,000 unit TID GLORY Administration Cefazolin Sodium/Dextrose 2 gm in 50 mls @ 100 mls/hr 06/03/19 10:30 02:03 Ancef 2 Gm Premixed Ivpb - IVPB 100 mls/hr Q8H-IV GLORY Administration Polyethylene Glycol 17 gm 06/29/19 13:00 06/29/19 14:12 Miralax (For Daily Use) - PO 17 grams DAILY GLORY Administration Home Medications Medication Instructions Recorded Levothyroxine [Synthroid -] 50 mcg PO DAILY 06/21/14 Ranitidine [Zantac -] 150 mg PO BID #30 tablet 07/16/18 Cefazolin 2 gm/D5w [Ancef 2 gm 2 gm IVPB Q8H 16 Days ml 06/04/19 Premixed Ivpb -] Collagenase Clostridium Hist. 1 applic TP DAILY tube 06/04/19 [Santyl -] Microbiology 05/24/19 11:20 Blood - Peripheral Venous Blood Culture - Final NO GROWTH AFTER 5 DAYS INCUBATION 05/24/19 10:00 Blood - Peripheral Venous Blood Culture - Final NO GROWTH AFTER 5 DAYS INCUBATION 05/21/19 07:20 Blood - Peripheral Venous Blood Culture - Final Staphylococcus Aureus 05/21/19 07:10 Blood - Peripheral Venous Blood Culture - Final Staphylococcus Aureus 05/19/19 12:05 Buttock - Right Gram Stain - Final 05/19/19 12:05 Buttock - Right Wound Culture - Final Escherichia Coli Pseudomonas Aeruginosa Staphylococcus Coagulase Neg Enterococcus Faecalis Proteus Mirabilis 05/17/19 22:32 Blood - Peripheral Venous Blood Culture - Final Staphylococcus Aureus 05/18/19 18:15 Blood - Peripheral Venous Blood Culture - Final Staphylococcus Aureus 05/18/19 18:00 Blood - Peripheral Venous Blood Culture - Final Staphylococcus Aureus 05/18/19 00:17 Urine - Urine Clean Catch Urine Culture - Final Klebsiella Pneumoniae 05/17/19 22:32 Blood - Peripheral Venous Blood Culture - Final Staphylococcus Aureus Assessment and plan: Patient is an 89yof , was presented with sepsis and was found to have MSSA bacteremia with increased lethargy on admission. # s/p severe sepsis: improved , continue IV antibiotics # MSSA bacteremia: cleared, cont. cefazolin needs total of 6 weeks. today day 38 / # hypotension: improved # Stage 4 Decub ulcer # Severe protein calorie malnutrition. # Cachexia : off clinimix now since patient is eating # hypernatremia: resolved # Klebsiella UTI # Anemia transfuse prn SQ heparin for DVT px. . cont diet DVT Px: hep SQ bowel regimen No new cx was recommended by ID placement is pending approval
[2019-06-30 08:57] LABS: BASO % 0.5 % (0-2.0); EOS % 2.4 % (0-4.5); HEMATOCRIT 30.4 % (32.4-45.2); HEMOGLOBIN 9.8 GM/dL (10.7-15.3); LYMPH % 21.7 % (8-40); MCH 27.3 pg (25.7-33.7); MCHC 32.3 g/dl (32.0-36.0); MEAN CELL VOLUME 84.6 fl (80-96); MONO % 7.5 % (3.8-10.2); NEUT % 67.9 % (42.8-82.8); PLATELET COUNT 214 K/MM3 (134-434); RBC 3.59 M/mm3 (3.60-5.2); RDW 18.9 % (11.6-15.6); WHITE BLOOD COUNT 6.3 K/mm3 (4.0-10.0)
[2019-06-30 09:18] LABS: BLOOD UREA NITROGEN 10.9 mg/dL (7-18); CALCIUM 7.9 mg/dL (8.5-10.1); CREATININE 0.4 mg/dL (0.55-1.3); MAGNESIUM 2.1 mg/dL (1.8-2.4); PHOSPHOROUS 3.1 mg/dL (2.5-4.9); POTASSIUM 3.9 mmol/L (3.5-5.1)
[2019-06-30] MEDS: BISACODYL 5 MG TABLET.DR (FP) PO SCH (10:15)
[2019-06-30] MEDS: POLYETHYLENE GLYCOL 3350 119 GM BTL PO SCH (14:34)
[2019-06-30] MEDS: COLLAGENASE CLOSTRIDIUM HIST. 30 GRAMS TUBE TP SCH (14:41)
--- NOTE | 2019-06-30 16:28 | PN ---
Physical Exam: SUBJECTIVE: Patient seen and examined NAEON. Not verbalizing complaints OBJECTIVE: Vital Signs Period Temp Pulse Resp BP Sys/Chinchilla Pulse Ox Last 24 Hr 98 F-99.0 F 73-89 18-20 100-118/47-65 97 GENERAL: Awake and alert, not in distress. HEAD: Normal with no signs of trauma. Tooth loss. EYES: Conjunctiva clear. EOM intact. ENT: Ears normal, nares patent, moist mucous membranes NECK: Trachea midline LUNGS: Clear to auscultation bilaterally, no wheezes HEART: Regular rate and rhythm, 3/6 systolic murmur ABDOMEN: Non-distended non-tender on palpation, normoactive bowel sounds BACK: stage 4 sacral ulcer and right trochanteric ulcer EXTREMITIES: well-perfused, +1 pitting edema left foot, trace edema right foot, right arm PICC with no erythema, arms contracted NEUROLOGICAL: Cannot be assessed. PSYCH: Cannot be assessed. SKIN: Warm, dry Laboratory Results - last 24 hr 06/29/19 06/30/19 06/30/19 17:44 06:15 06:15 WBC 6.3 RBC 3.59 L Hgb 9.8 L Hct 30.4 L MCV 84.6 MCH 27.3 MCHC 32.3 RDW 18.9 H Plt Count 214 D MPV 9.0 Absolute Neuts (auto) 4.3 Neutrophils % 67.9 Lymphocytes % 21.7 D Monocytes % 7.5 Eosinophils % 2.4 Basophils % 0.5 Nucleated RBC % 0 Sodium 141 Potassium 3.9 Chloride 105 Carbon Dioxide 29 Anion Gap 6 L BUN 10.9 Creatinine 0.4 L Est GFR (CKD-EPI)AfAm 107.03 Est GFR (CKD-EPI)NonAf 92.34 POC Glucometer 97 Random Glucose 72 L Calcium 7.9 L Phosphorus 3.1 Magnesium 2.1 06/30/19 06:16 WBC RBC Hgb Hct MCV MCH MCHC RDW Plt Count MPV Absolute Neuts (auto) Neutrophils % Lymphocytes % Monocytes % Eosinophils % Basophils % Nucleated RBC % Sodium Potassium Chloride Carbon Dioxide Anion Gap BUN Creatinine Est GFR (CKD-EPI)AfAm Est GFR (CKD-EPI)NonAf POC Glucometer 68 Random Glucose Calcium Phosphorus Magnesium Active Medications Generic Name Dose Route Start Last Admin Trade Name Freq PRN Reason Stop Dose Admin Acetaminophen 750 mg 05/23/19 11:32 06/15/19 10:01 Ofirmev Injection - IVPB 750 mg Q6H PRN Administration PAIN LEVEL 6-10 Collagenase 1 applic 05/18/19 16:00 06/30/19 14:41 Santyl - TP 1 applic DAILY GLORY Administration Protocol Docusate Sodium 200 mg 06/14/19 19:33 06/19/19 10:13 Colace Liquid - PO 200 mg DAILY PRN Administration CONSTIPATION Heparin Sodium (Porcine) 5,000 unit 06/12/19 14:00 06/30/19 14:40 Heparin - SQ 5,000 unit TID GLORY Administration Cefazolin Sodium/Dextrose 2 gm in 50 mls @ 100 mls/hr 06/03/19 10:30 10:16 Ancef 2 Gm Premixed Ivpb - IVPB 100 mls/hr Q8H-IV GLORY Administration Polyethylene Glycol 17 gm 06/29/19 13:00 06/30/19 14:34 Miralax (For Daily Use) - PO 17 grams DAILY GLORY Administration ASSESSMENT/PLAN: 89y/o female (hospice patient prior to admission) with dementia, HTN, recurrent UTI, constipation, hypothyroidism, and malnutrition who presents with increased weakness and lethargy. Pt was admitted for severe sepsis 2/2 UTI and bacteremia. 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, improved -last set of blood cx negative on 05/24 -Cefazolin 2gm Q8H, continue for 6 weeks after negative cx (07/04/19 end date) --currently day 38 of 42 #stage 4 decubitus ulcer, sacral and right trochanteric -drainage present but does not need to be cultured -continue abx -monitor #severe dehydration and malnutrition, improved -dextrose PRN with BGM -dysphagia diet -dietary following #microcytic anemia s/p 2 units PRBCs --Hb improved > Hgb 9.8 -s/p pRBC x3, total, this admission #constipation, improved -colace 200mg daily PRN -miralax #dysphagia -pt is able to drink miralax mixed with water #hypophosphatemia, resolved #hyperchloridemia, resolved #hypokalemia, resolved #hypernatremia, resolved #hypomagnesemia, resolved #oral thrush, resolved DVT Ppx heparin FEN PO fluids dysphagia puree diet code status DNR/DNI dispo waiting on placement, insurance available on 06/30/19 for placement Visit type - Emergency Visit Emergency Visit: No - New Patient This patient is new to me today: No - Critical Care Critical Care patient: No ATTENDING PHYSICIAN STATEMENT I saw and evaluated the patient. I reviewed the resident's note and discussed the case with the resident. I agree with the resident's findings and plan as documented. SUBJECTIVE: OBJECTIVE: ASSESSMENT AND PLAN:
[2019-07-01] MEDS: CEFAZOLIN 2 GM/D5W 2 GM/50 ML ML IVPB SCH ×3 (02:06→18:28)
[2019-07-01] MEDS: HEPARIN NA (PORCINE) 5,000 UNITS/ML 1ML VIAL SQ SCH ×3 (05:46→22:22)
[2019-07-01 08:04] LABS: HEMATOCRIT 30.8 % (32.4-45.2); HEMOGLOBIN 10.1 GM/dL (10.7-15.3); MCH 27.4 pg (25.7-33.7); MCHC 32.7 g/dl (32.0-36.0); PLATELET COUNT 214 K/MM3 (134-434); RBC 3.67 M/mm3 (3.60-5.2); RDW 18.4 % (11.6-15.6)
[2019-07-01 08:31] LABS: BLOOD UREA NITROGEN 13.5 mg/dL (7-18); CREATININE 0.5 mg/dL (0.55-1.3); PHOSPHOROUS 3.1 mg/dL (2.5-4.9)
[2019-07-01] MEDS: COLLAGENASE CLOSTRIDIUM HIST. 30 GRAMS TUBE TP SCH (11:00)
--- NOTE | 2019-07-01 11:30 | PN ---
Physical Exam: SUBJECTIVE: Patient seen and examined. Pt is non-verbal. OBJECTIVE: Vital Signs Period Temp Pulse Resp BP Sys/Chinchilla Pulse Ox Last 24 Hr 98.3 F-99.0 F 80-100 20-20 100-147/55-78 98 GENERAL: Awake and alert, not in distress. Makes eye contact and smiles. HEAD: Normal with no signs of trauma. Tooth loss. EYES: Conjunctiva clear. EOM intact. ENT: Ears normal, nares patent, moist mucous membranes NECK: Trachea midline LUNGS: Clear to auscultation bilaterally, no wheezes HEART: Regular rate and rhythm, 3/6 systolic murmur ABDOMEN: Non-distended, non-tender on palpation, normoactive bowel sounds BACK: stage 4 sacral ulcer and right trochanteric ulcer EXTREMITIES: well-perfused, +1 pitting edema b/l feet, right arm PICC with no erythema, arms contracted NEUROLOGICAL: Cannot be assessed. PSYCH: Cannot be assessed. SKIN: Warm, dry Laboratory Results - last 24 hr 06/30/19 07/01/19 07/01/19 17:19 06:00 06:15 WBC 7.0 RBC 3.67 Hgb 10.1 L Hct 30.8 L MCV 84.0 MCH 27.4 MCHC 32.7 RDW 18.4 H Plt Count 214 MPV 9.0 Sodium Potassium Chloride Carbon Dioxide Anion Gap BUN Creatinine Est GFR (CKD-EPI)AfAm Est GFR (CKD-EPI)NonAf POC Glucometer 105 82 Random Glucose Calcium Phosphorus Magnesium 07/01/19 06:15 WBC RBC Hgb Hct MCV MCH MCHC RDW Plt Count MPV Sodium 141 Potassium 4.0 Chloride 105 Carbon Dioxide 31 Anion Gap 5 L BUN 13.5 Creatinine 0.5 L Est GFR (CKD-EPI)AfAm 99.45 Est GFR (CKD-EPI)NonAf 85.81 POC Glucometer Random Glucose 74 Calcium 8.0 L Phosphorus 3.1 Magnesium 2.0 Active Medications Generic Name Dose Route Start Last Admin Trade Name Freq PRN Reason Stop Dose Admin Acetaminophen 750 mg 05/23/19 11:32 06/15/19 10:01 Ofirmev Injection - IVPB 750 mg Q6H PRN Administration PAIN LEVEL 6-10 Collagenase 1 applic 05/18/19 16:00 06/30/19 14:41 Santyl - TP 1 applic DAILY GLORY Administration Protocol Docusate Sodium 200 mg 06/14/19 19:33 06/19/19 10:13 Colace Liquid - PO 200 mg DAILY PRN Administration CONSTIPATION Heparin Sodium (Porcine) 5,000 unit 06/12/19 14:00 07/01/19 05:46 Heparin - SQ 5,000 unit TID GLORY Administration Cefazolin Sodium/Dextrose 2 gm in 50 mls @ 100 mls/hr 06/03/19 10:30 09:41 Ancef 2 Gm Premixed Ivpb - IVPB 100 mls/hr Q8H-IV GLORY Administration Polyethylene Glycol 17 gm 06/29/19 13:00 06/30/19 14:34 Miralax (For Daily Use) - PO 17 grams DAILY GLORY Administration ASSESSMENT/PLAN: Ms. Rust is an 89y/o female (hospice patient prior to admission) with dementia , HTN, recurrent UTI, constipation, hypothyroidism, and malnutrition who presents with increased weakness and lethargy. Pt was admitted for severe sepsis 2/2 UTI and bacteremia. 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, improved -last set of blood cx negative on 05/24 -Cefazolin 2gm Q8H, continue for 6 weeks after negative cx (07/04/19 end date) #stage 4 decubitus ulcer, sacral and right trochanteric -drainage present but does not need to be cultured -continue abx -monitor #severe dehydration and malnutrition, improved -dextrose PRN with BGM -dysphagia diet -dietary following #microcytic anemia s/p 2 units PRBCs -Hb improved -3 total this admission #constipation, improved -colace 200mg daily PRN -miralax #dysphagia -pt is able to drink miralax mixed with water #hypophosphatemia, resolved #hyperchloridemia, resolved #hypokalemia, resolved #hypernatremia, resolved #hypomagnesemia, resolved #oral thrush, resolved DVT Ppx heparin FEN PO fluids dysphagia puree diet code status DNR/DNI dispo waiting on insurance for placement Visit type - Emergency Visit Emergency Visit: Yes ED Registration Date: 05/18/19 Care time: The patient presented to the Emergency Department on the above date and was hospitalized for further evaluation of their emergent condition. - New Patient This patient is new to me today: No - Critical Care Critical Care patient: No - Discharge Referral Referred to [facility] Med P.C.: No ATTENDING PHYSICIAN STATEMENT I saw and evaluated the patient. I reviewed the resident's note and discussed the case with the resident. I agree with the resident's findings and plan as documented. SUBJECTIVE: OBJECTIVE: ASSESSMENT AND PLAN:
--- NOTE | 2019-07-01 13:15 | PN ---
Progress Note, MANAGER UNIT - Note Progress Note: Selected Entries 06/27/19 06/27/19 06/27/19 02:25 09:58 10:00 Breakfast 50% Lunch 75% Supper Temperature 99.2 F 98.1 F 06/27/19 06/27/19 14:41 18:00 Breakfast Lunch Supper 75% Temperature 98.9 F 98.9 F Selected Entries 06/29/19 10:00 Breakfast 50% Laboratory Tests 06/27/19 06:00 WBC 9.3 Selected Entries 06/30/19 06/30/19 06/30/19 07:20 08:30 15:33 Breakfast 50% Lunch 100% Supper Temperature 98 F 98.7 F 98.8 F 06/30/19 07/01/19 07/01/19 18:00 06:43 09:35 Breakfast Lunch Supper 100% Temperature 99.0 F 98.3 F 99 F Laboratory Tests 07/01/19 06:15 WBC 7.0 Tolerating sips of water from a cup. Oral holding with delayed, brisk swallow without signs of aspiration. Trial of Puree/thin liquid-single sips, no continuous drinking Monitor PO tolerance OK to put Miralax in water Pending d/c.
[2019-07-01] MEDS: POLYETHYLENE GLYCOL 3350 119 GM BTL PO SCH (14:10)
--- NOTE | 2019-07-01 16:49 | PN ---
Teaching Attending Note Name of Resident: Padmaja Henderson ATTENDING PHYSICIAN STATEMENT I saw and evaluated the patient. I reviewed the resident's note and discussed the case with the resident. I agree with the resident's findings and plan as documented. SUBJECTIVE: Patient is comfortable with no acute distress, no shortness of breath. Vital Signs Temperature 98.9 F 07/01/19 15:09 Pulse Rate 92 H 07/01/19 15:09 Respiratory Rate 20 07/01/19 15:09 Blood Pressure 120/60 07/01/19 15:09 O2 Sat by Pulse Oximetry (%) 100 07/01/19 11:05 GENERAL: The patient is nonverbal, contracted, but comfortable HEAD: Normal with no signs of trauma. EYES: PERRL, EOMI, sclera anicteric, conjunctiva clear. ENT: Ears normal, dry mucus membrane , dry skin NECK: Trachea midline, full range of motion, supple. LUNGS: decreased Breath sounds bl , no wheezes, no crackles, no accessory muscle use. HEART: Regular rate and rhythm, S1, S2 positive, SHIMON 2/6 , no rub or gallop. ABDOMEN: Soft, NT,ND, normoactive bowel sounds, no guarding, no rebound, no hepatosplenomegaly, no masses. EXTREMITIES: 2+ pulses, warm, contracted LE , + edema 2+ NEUROLOGICAL: Cranial nerves II through XII grossly intact. gait not observed. PSYCH: non verbal , skin: Warm ,dry skin decub ulcer, stage 4, no discharge , no erythema, drainage from the right hip diminished . CBCD WBC 7.0 K/mm3 (4.0-10.0) 07/01/19 06:15 RBC 3.67 M/mm3 (3.60-5.2) 07/01/19 06:15 Hgb 10.1 GM/dL (10.7-15.3) L 07/01/19 06:15 Hct 30.8 % (32.4-45.2) L 07/01/19 06:15 MCV 84.0 fl (80-96) 07/01/19 06:15 MCHC 32.7 g/dl (32.0-36.0) 07/01/19 06:15 RDW 18.4 % (11.6-15.6) H 07/01/19 06:15 Plt Count 214 K/MM3 (134-434) 07/01/19 06:15 MPV 9.0 fl (7.5-11.1) 07/01/19 06:15 CMP Sodium 141 mmol/L (136-145) 07/01/19 06:15 Potassium 4.0 mmol/L (3.5-5.1) 07/01/19 06:15 Chloride 105 mmol/L (98-107) 07/01/19 06:15 Carbon Dioxide 31 mmol/L (21-32) 07/01/19 06:15 Anion Gap 5 MMOL/L (8-16) L 07/01/19 06:15 BUN 13.5 mg/dL (7-18) 07/01/19 06:15 Creatinine 0.5 mg/dL (0.55-1.3) L 07/01/19 06:15 Random Glucose 74 mg/dL (74-106) 07/01/19 06:15 Calcium 8.0 mg/dL (8.5-10.1) L 07/01/19 06:15 Total Bilirubin 0.2 mg/dL (0.2-1) 06/21/19 06:20 AST 10 U/L (15-37) L 06/21/19 06:20 ALT < 6 U/L (13-61) L 06/21/19 06:20 Alkaline Phosphatase 77 U/L (45-117) 06/21/19 06:20 Total Protein 4.1 g/dl (6.4-8.2) L 06/21/19 06:20 Albumin 1.4 g/dl (3.4-5.0) L 06/21/19 06:20 Current Medications Generic Name Dose Route Start Last Admin Trade Name Rona PRN Reason Stop Dose Admin Acetaminophen 750 mg 05/23/19 11:32 06/15/19 10:01 Ofirmev Injection - IVPB 750 mg Q6H PRN Administration PAIN LEVEL 6-10 Collagenase 1 applic 05/18/19 16:00 07/01/19 11:00 Santyl - TP 1 applic DAILY GLORY Administration Protocol Docusate Sodium 200 mg 06/14/19 19:33 06/19/19 10:13 Colace Liquid - PO 200 mg DAILY PRN Administration CONSTIPATION Heparin Sodium (Porcine) 5,000 unit 06/12/19 14:00 07/01/19 14:07 Heparin - SQ 5,000 unit TID GLORY Administration Cefazolin Sodium/Dextrose 2 gm in 50 mls @ 100 mls/hr 06/03/19 10:30 09:41 Ancef 2 Gm Premixed Ivpb - IVPB 100 mls/hr Q8H-IV GLORY Administration Polyethylene Glycol 17 gm 06/29/19 13:00 07/01/19 14:10 Miralax (For Daily Use) - PO 17 grams DAILY GLORY Administration Home Medications Medication Instructions Recorded Levothyroxine [Synthroid -] 50 mcg PO DAILY 06/21/14 Ranitidine [Zantac -] 150 mg PO BID #30 tablet 07/16/18 Collagenase Clostridium Hist. 1 applic TP DAILY tube 06/04/19 [Santyl -] Cefazolin (Pre-Docked) [Ancef 1Gm 2 gm IVPB Q8H #11 bag 07/01/19 Ivpb (Pre-Docked)] Microbiology 05/24/19 11:20 Blood - Peripheral Venous Blood Culture - Final NO GROWTH AFTER 5 DAYS INCUBATION 05/24/19 10:00 Blood - Peripheral Venous Blood Culture - Final NO GROWTH AFTER 5 DAYS INCUBATION 05/21/19 07:20 Blood - Peripheral Venous Blood Culture - Final Staphylococcus Aureus 05/21/19 07:10 Blood - Peripheral Venous Blood Culture - Final Staphylococcus Aureus 05/19/19 12:05 Buttock - Right Gram Stain - Final 05/19/19 12:05 Buttock - Right Wound Culture - Final Escherichia Coli Pseudomonas Aeruginosa Staphylococcus Coagulase Neg Enterococcus Faecalis Proteus Mirabilis 05/17/19 22:32 Blood - Peripheral Venous Blood Culture - Final Staphylococcus Aureus 05/18/19 18:15 Blood - Peripheral Venous Blood Culture - Final Staphylococcus Aureus 05/18/19 18:00 Blood - Peripheral Venous Blood Culture - Final Staphylococcus Aureus 05/18/19 00:17 Urine - Urine Clean Catch Urine Culture - Final Klebsiella Pneumoniae 05/17/19 22:32 Blood - Peripheral Venous Blood Culture - Final Staphylococcus Aureus Assessment and plan: Patient is an 89yof , was presented with sepsis and was found to have MSSA bacteremia with increased lethargy on admission. # s/p severe sepsis: improved , continue IV antibiotics # MSSA bacteremia: cleared, cont. cefazolin needs total of 6 weeks. today day # hypotension: improved # Stage 4 Decub ulcer # Severe protein calorie malnutrition. # Cachexia : off clinimix now since patient is eating # hypernatremia: resolved # Klebsiella UTI # Anemia transfuse prn SQ heparin for DVT px. . cont diet DVT Px: hep SQ bowel regimen No new cx was recommended by ID placement is pending approval
[2019-07-02] MEDS: CEFAZOLIN 2 GM/D5W 2 GM/50 ML ML IVPB SCH ×3 (01:58→17:44)
[2019-07-02] MEDS: HEPARIN NA (PORCINE) 5,000 UNITS/ML 1ML VIAL SQ SCH ×3 (06:32→21:31)
[2019-07-02 09:12] LABS: BASO % 0.6 % (0-2.0); EOS % 1.8 % (0-4.5); HEMATOCRIT 30.5 % (32.4-45.2); HEMOGLOBIN 9.8 GM/dL (10.7-15.3); LYMPH % 16.2 % (8-40); MCH 27.2 pg (25.7-33.7); MCHC 32.3 g/dl (32.0-36.0); MEAN CELL VOLUME 84.3 fl (80-96); MEAN PLT VOLUME 8.7 fl (7.5-11.1); MONO % 6.2 % (3.8-10.2); NEUT % 75.2 % (42.8-82.8); PLATELET COUNT 205 K/MM3 (134-434); RBC 3.61 M/mm3 (3.60-5.2); RDW 18.7 % (11.6-15.6); WHITE BLOOD COUNT 7.1 K/mm3 (4.0-10.0)
[2019-07-02 09:16] LABS: ALBUMIN 1.6 g/dl (3.4-5.0); ALK PHOS 78 U/L (45-117); ANION GAP 6 MMOL/L (8-16); BILIRUBIN,TOTAL 0.2 mg/dL (0.2-1); BLOOD UREA NITROGEN 13.8 mg/dL (7-18); CALCIUM 8.1 mg/dL (8.5-10.1); CHLORIDE 105 mmol/L (98-107); CO2 29 mmol/L (21-32); CREATININE 0.4 mg/dL (0.55-1.3); GLUCOSE,RANDOM 74 mg/dL (74-106); PHOSPHOROUS 3.2 mg/dL (2.5-4.9); POTASSIUM 3.9 mmol/L (3.5-5.1); SGOT/AST 9 U/L (15-37); SGPT/ALT < 6 U/L (13-61); SODIUM 140 mmol/L (136-145); TOT PROT 4.6 g/dl (6.4-8.2)
[2019-07-02] MEDS: COLLAGENASE CLOSTRIDIUM HIST. 30 GRAMS TUBE TP SCH (10:16)
[2019-07-02] MEDS: POLYETHYLENE GLYCOL 3350 119 GM BTL PO SCH (10:16)
--- NOTE | 2019-07-02 10:25 | PN ---
Physical Exam: SUBJECTIVE: Patient seen and examined. She is non-verbal. OBJECTIVE: Vital Signs Period Temp Pulse Resp BP Sys/Chinchilla Pulse Ox Last 24 Hr 98.8 F-99.3 F 63-94 20-20 110-120/54-67 99-100 GENERAL: Drowsy, not in distress. HEAD: Normal with no signs of trauma. Tooth loss. EYES: Conjunctiva clear. EOM intact. ENT: Ears normal, nares patent, moist mucous membranes NECK: Trachea midline LUNGS: Clear to auscultation bilaterally, no wheezes HEART: Regular rate and rhythm, 3/6 systolic murmur ABDOMEN: Non-distended, non-tender on palpation, normoactive bowel sounds BACK: stage 4 sacral ulcer and right trochanteric ulcer bandaged EXTREMITIES: well-perfused, +1 pitting edema b/l feet, right arm PICC with no erythema, arms contracted NEUROLOGICAL: Cannot be assessed. PSYCH: Cannot be assessed. SKIN: Warm, dry Laboratory Results - last 24 hr 07/01/19 07/02/19 07/02/19 17:14 05:51 07:00 WBC 7.1 RBC 3.61 Hgb 9.8 L Hct 30.5 L MCV 84.3 MCH 27.2 MCHC 32.3 RDW 18.7 H Plt Count 205 MPV 8.7 Absolute Neuts (auto) 5.3 Neutrophils % 75.2 Lymphocytes % 16.2 D Monocytes % 6.2 Eosinophils % 1.8 Basophils % 0.6 Nucleated RBC % 0 Sodium Potassium Chloride Carbon Dioxide Anion Gap BUN Creatinine Est GFR (CKD-EPI)AfAm Est GFR (CKD-EPI)NonAf POC Glucometer 105 86 Random Glucose Calcium Phosphorus Magnesium Total Bilirubin AST ALT Alkaline Phosphatase Total Protein Albumin 07/02/19 07:00 WBC RBC Hgb Hct MCV MCH MCHC RDW Plt Count MPV Absolute Neuts (auto) Neutrophils % Lymphocytes % Monocytes % Eosinophils % Basophils % Nucleated RBC % Sodium 140 Potassium 3.9 Chloride 105 Carbon Dioxide 29 Anion Gap 6 L BUN 13.8 Creatinine 0.4 L Est GFR (CKD-EPI)AfAm 107.03 Est GFR (CKD-EPI)NonAf 92.34 POC Glucometer Random Glucose 74 Calcium 8.1 L Phosphorus 3.2 Magnesium 2.0 Total Bilirubin 0.2 AST 9 L ALT < 6 L Alkaline Phosphatase 78 Total Protein 4.6 L Albumin 1.6 L Active Medications Generic Name Dose Route Start Last Admin Trade Name Rona PRN Reason Stop Dose Admin Acetaminophen 750 mg 05/23/19 11:32 06/15/19 10:01 Ofirmev Injection - IVPB 750 mg Q6H PRN Administration PAIN LEVEL 6-10 Collagenase 1 applic 05/18/19 16:00 07/02/19 10:16 Santyl - TP 1 applic DAILY GLORY Administration Protocol Docusate Sodium 200 mg 06/14/19 19:33 06/19/19 10:13 Colace Liquid - PO 200 mg DAILY PRN Administration CONSTIPATION Heparin Sodium (Porcine) 5,000 unit 06/12/19 14:00 07/02/19 06:32 Heparin - SQ 5,000 unit TID GLORY Administration Cefazolin Sodium/Dextrose 2 gm in 50 mls @ 100 mls/hr 06/03/19 10:30 10:15 Ancef 2 Gm Premixed Ivpb - IVPB 100 mls/hr Q8H-IV GLORY Administration Polyethylene Glycol 17 gm 06/29/19 13:00 07/02/19 10:16 Miralax (For Daily Use) - PO 17 grams DAILY GLORY Administration ASSESSMENT/PLAN: Ms. Rust is an 89y/o female (hospice patient prior to admission) with dementia , HTN, recurrent UTI, constipation, hypothyroidism, and malnutrition who presents with increased weakness and lethargy. Pt was admitted for severe sepsis 2/2 UTI and bacteremia. 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, improved -last set of blood cx negative on 05/24 -Cefazolin 2gm Q8H, continue for 6 weeks after negative cx (07/04/19 end date) #stage 4 decubitus ulcer, sacral and right trochanteric -drainage present but does not need to be cultured -continue abx -monitor #severe dehydration and malnutrition, improved -dextrose PRN with BGM -dysphagia diet -dietary following #microcytic anemia s/p 2 units PRBCs -Hb improved -3 total this admission #constipation, improved -colace 200mg daily PRN -miralax #dysphagia -pt is able to drink miralax mixed with water #hypophosphatemia, resolved #hyperchloridemia, resolved #hypokalemia, resolved #hypernatremia, resolved #hypomagnesemia, resolved #oral thrush, resolved DVT Ppx heparin FEN PO fluids dysphagia puree diet code status DNR/DNI dispo finishes IV abx on July 04, placement pending insurance Visit type - Emergency Visit Emergency Visit: Yes ED Registration Date: 05/18/19 Care time: The patient presented to the Emergency Department on the above date and was hospitalized for further evaluation of their emergent condition. - New Patient This patient is new to me today: No - Critical Care Critical Care patient: No - Discharge Referral Referred to [facility] Med P.C.: No ATTENDING PHYSICIAN STATEMENT I saw and evaluated the patient. I reviewed the resident's note and discussed the case with the resident. I agree with the resident's findings and plan as documented. SUBJECTIVE: OBJECTIVE: ASSESSMENT AND PLAN:
--- NOTE | 2019-07-02 18:30 | PN ---
Teaching Attending Note Name of Resident: Padmaja Henderson ATTENDING PHYSICIAN STATEMENT I saw and evaluated the patient. I reviewed the resident's note and discussed the case with the resident. I agree with the resident's findings and plan as documented. SUBJECTIVE: Patient is comfortable with no acute distress, no nausea or vomiting. Vital Signs Temperature 99.0 F 07/02/19 15:00 Pulse Rate 93 H 07/02/19 15:00 Respiratory Rate 20 07/02/19 15:00 Blood Pressure 96/54 L 07/02/19 15:00 O2 Sat by Pulse Oximetry (%) 99 07/01/19 21:00 GENERAL: The patient is nonverbal, contracted, but comfortable HEAD: Normal with no signs of trauma. EYES: PERRL, EOMI, sclera anicteric, conjunctiva clear. ENT: Ears normal, dry mucus membrane , dry skin NECK: Trachea midline, full range of motion, supple. LUNGS: decreased Breath sounds bl , no wheezes, no crackles, no accessory muscle use. HEART: Regular rate and rhythm, S1, S2 positive, SHIMON 2/6 , no rub or gallop. ABDOMEN: Soft, NT,ND, normoactive bowel sounds, no guarding, no rebound, no hepatosplenomegaly, no masses. EXTREMITIES: 2+ pulses, warm, contracted LE , + edema 2+ NEUROLOGICAL: Cranial nerves II through XII grossly intact. gait not observed. PSYCH: non verbal , skin: Warm ,dry skin Decub ulcer, stage 4, no discharge , no erythema, minimal drainage from the right hip diminished . CBCD WBC 7.0 K/mm3 (4.0-10.0) 07/01/19 06:15 RBC 3.67 M/mm3 (3.60-5.2) 07/01/19 06:15 Hgb 10.1 GM/dL (10.7-15.3) L 07/01/19 06:15 Hct 30.8 % (32.4-45.2) L 07/01/19 06:15 MCV 84.0 fl (80-96) 07/01/19 06:15 MCHC 32.7 g/dl (32.0-36.0) 07/01/19 06:15 RDW 18.4 % (11.6-15.6) H 07/01/19 06:15 Plt Count 214 K/MM3 (134-434) 07/01/19 06:15 MPV 9.0 fl (7.5-11.1) 07/01/19 06:15 CMP Sodium 141 mmol/L (136-145) 07/01/19 06:15 Potassium 4.0 mmol/L (3.5-5.1) 07/01/19 06:15 Chloride 105 mmol/L (98-107) 07/01/19 06:15 Carbon Dioxide 31 mmol/L (21-32) 07/01/19 06:15 Anion Gap 5 MMOL/L (8-16) L 07/01/19 06:15 BUN 13.5 mg/dL (7-18) 07/01/19 06:15 Creatinine 0.5 mg/dL (0.55-1.3) L 07/01/19 06:15 Random Glucose 74 mg/dL (74-106) 07/01/19 06:15 Calcium 8.0 mg/dL (8.5-10.1) L 07/01/19 06:15 Total Bilirubin 0.2 mg/dL (0.2-1) 06/21/19 06:20 AST 10 U/L (15-37) L 06/21/19 06:20 ALT < 6 U/L (13-61) L 06/21/19 06:20 Alkaline Phosphatase 77 U/L (45-117) 06/21/19 06:20 Total Protein 4.1 g/dl (6.4-8.2) L 06/21/19 06:20 Albumin 1.4 g/dl (3.4-5.0) L 06/21/19 06:20 Current Medications Generic Name Dose Route Start Last Admin Trade Name Rona PRN Reason Stop Dose Admin Acetaminophen 750 mg 05/23/19 11:32 06/15/19 10:01 Ofirmev Injection - IVPB 750 mg Q6H PRN Administration PAIN LEVEL 6-10 Collagenase 1 applic 05/18/19 16:00 07/01/19 11:00 Santyl - TP 1 applic DAILY GLORY Administration Protocol Docusate Sodium 200 mg 06/14/19 19:33 06/19/19 10:13 Colace Liquid - PO 200 mg DAILY PRN Administration CONSTIPATION Heparin Sodium (Porcine) 5,000 unit 06/12/19 14:00 07/01/19 14:07 Heparin - SQ 5,000 unit TID GLORY Administration Cefazolin Sodium/Dextrose 2 gm in 50 mls @ 100 mls/hr 06/03/19 10:30 09:41 Ancef 2 Gm Premixed Ivpb - IVPB 100 mls/hr Q8H-IV GLORY Administration Polyethylene Glycol 17 gm 06/29/19 13:00 07/01/19 14:10 Miralax (For Daily Use) - PO 17 grams DAILY GLORY Administration Home Medications Medication Instructions Recorded Levothyroxine [Synthroid -] 50 mcg PO DAILY 06/21/14 Ranitidine [Zantac -] 150 mg PO BID #30 tablet 07/16/18 Collagenase Clostridium Hist. 1 applic TP DAILY tube 06/04/19 [Santyl -] Cefazolin (Pre-Docked) [Ancef 1Gm 2 gm IVPB Q8H #11 bag 07/01/19 Ivpb (Pre-Docked)] Microbiology 05/24/19 11:20 Blood - Peripheral Venous Blood Culture - Final NO GROWTH AFTER 5 DAYS INCUBATION 05/24/19 10:00 Blood - Peripheral Venous Blood Culture - Final NO GROWTH AFTER 5 DAYS INCUBATION 05/21/19 07:20 Blood - Peripheral Venous Blood Culture - Final Staphylococcus Aureus 05/21/19 07:10 Blood - Peripheral Venous Blood Culture - Final Staphylococcus Aureus 05/19/19 12:05 Buttock - Right Gram Stain - Final 05/19/19 12:05 Buttock - Right Wound Culture - Final Escherichia Coli Pseudomonas Aeruginosa Staphylococcus Coagulase Neg Enterococcus Faecalis Proteus Mirabilis 05/17/19 22:32 Blood - Peripheral Venous Blood Culture - Final Staphylococcus Aureus 05/18/19 18:15 Blood - Peripheral Venous Blood Culture - Final Staphylococcus Aureus 05/18/19 18:00 Blood - Peripheral Venous Blood Culture - Final Staphylococcus Aureus 05/18/19 00:17 Urine - Urine Clean Catch Urine Culture - Final Klebsiella Pneumoniae 05/17/19 22:32 Blood - Peripheral Venous Blood Culture - Final Staphylococcus Aureus Assessment and plan: Patient is an 89yof , was presented with sepsis and was found to have MSSA bacteremia with increased lethargy on admission. # s/p severe sepsis: improved , continue IV antibiotics # MSSA bacteremia: cleared, cont. cefazolin needs total of 6 weeks. today day # hypotension: improved # Stage 4 Decub ulcer # Severe protein calorie malnutrition. # Cachexia : off clinimix now since patient is eating # hypernatremia: resolved # Klebsiella UTI # Anemia transfuse prn SQ heparin for DVT px. . cont diet DVT Px: hep SQ bowel regimen No new cx was recommended by ID continue to wait for placement.
[2019-07-02] MEDS ORDERED: INSULIN (NOVOLOG) ASPART 100 UNITS/ML 10ML VIAL ONE (18:54)
[2019-07-03] MEDS: CEFAZOLIN 2 GM/D5W 2 GM/50 ML ML IVPB SCH ×3 (02:59→17:38)
[2019-07-03] MEDS: HEPARIN NA (PORCINE) 5,000 UNITS/ML 1ML VIAL SQ SCH ×3 (05:23→22:09)
[2019-07-03] MEDS: ACETAMINOPHEN 1000 MG/100 ML VIAL (NON FORMULARY) IVPB PRN ×2 (08:28→17:14)
[2019-07-03 08:39] LABS: BASO % 0.4 % (0-2.0); EOS % 0.6 % (0-4.5); HEMATOCRIT 32.5 % (32.4-45.2); HEMOGLOBIN 10.7 GM/dL (10.7-15.3); LYMPH % 11.2 % (8-40); MCH 27.9 pg (25.7-33.7); MEAN CELL VOLUME 84.3 fl (80-96); MONO % 5.5 % (3.8-10.2); NEUT % 82.3 % (42.8-82.8); PLATELET COUNT 222 K/MM3 (134-434); RBC 3.85 M/mm3 (3.60-5.2); RDW 18.2 % (11.6-15.6); WHITE BLOOD COUNT 9.1 K/mm3 (4.0-10.0)
[2019-07-03 09:09] LABS: ALBUMIN 1.8 g/dl (3.4-5.0); ALK PHOS 85 U/L (45-117); ANION GAP 8 MMOL/L (8-16); BILIRUBIN,TOTAL 0.4 mg/dL (0.2-1); BLOOD UREA NITROGEN 13.2 mg/dL (7-18); CALCIUM 8.1 mg/dL (8.5-10.1); CHLORIDE 102 mmol/L (98-107); CO2 28 mmol/L (21-32); CREATININE 0.4 mg/dL (0.55-1.3); GLUCOSE,RANDOM 72 mg/dL (74-106); PHOSPHOROUS 2.9 mg/dL (2.5-4.9); POTASSIUM 3.9 mmol/L (3.5-5.1); SGOT/AST 13 U/L (15-37); SGPT/ALT < 6 U/L (13-61); SODIUM 138 mmol/L (136-145); TOT PROT 5.2 g/dl (6.4-8.2)
[2019-07-03] MEDS: POLYETHYLENE GLYCOL 3350 119 GM BTL PO SCH (09:59)
[2019-07-03] MEDS: COLLAGENASE CLOSTRIDIUM HIST. 30 GRAMS TUBE TP SCH (15:19)
[2019-07-03] MEDS ORDERED: OSELTAMIVIR PHOSPHATE 30 MG CAPSULE PO SCH ×2 (16:49→22:00)
--- NOTE | 2019-07-03 16:53 | PN ---
Progress Note (short form) - Note Progress Note: Patient is having high fever. looks lethargic. Son at bedside feeding the patient. Vital Signs Temperature 99.0 F 07/02/19 15:00 Pulse Rate 93 H 07/02/19 15:00 Respiratory Rate 20 07/02/19 15:00 Blood Pressure 96/54 L 07/02/19 15:00 O2 Sat by Pulse Oximetry (%) 99 07/01/19 21:00 GENERAL: The patient is nonverbal, contracted, but comfortable HEAD: Normal with no signs of trauma. EYES: PERRL, EOMI, sclera anicteric, conjunctiva clear. ENT: Ears normal, dry mucus membrane , dry skin NECK: Trachea midline, full range of motion, supple. LUNGS: decreased Breath sounds bl , no wheezes, no crackles, no accessory muscle use. HEART: Regular rate and rhythm, S1, S2 positive, SHIMON 2/6 , no rub or gallop. ABDOMEN: Soft, NT,ND, normoactive bowel sounds, no guarding, no rebound, no hepatosplenomegaly, no masses. EXTREMITIES: 2+ pulses, warm, contracted LE , + edema 2+ NEUROLOGICAL: Cranial nerves II through XII grossly intact. gait not observed. PSYCH: non verbal , skin: Warm ,dry skin Decub ulcer, stage 4, no discharge , no erythema, minimal drainage from the right hip diminished . CBCD WBC 9.1 K/mm3 (4.0-10.0) 07/03/19 06:30 RBC 3.85 M/mm3 (3.60-5.2) 07/03/19 06:30 Hgb 10.7 GM/dL (10.7-15.3) 07/03/19 06:30 Hct 32.5 % (32.4-45.2) 07/03/19 06:30 MCV 84.3 fl (80-96) 07/03/19 06:30 MCHC 33.0 g/dl (32.0-36.0) 07/03/19 06:30 RDW 18.2 % (11.6-15.6) H 07/03/19 06:30 Plt Count 222 K/MM3 (134-434) 07/03/19 06:30 MPV 9.0 fl (7.5-11.1) 07/03/19 06:30 CMP Sodium 138 mmol/L (136-145) 07/03/19 06:30 Potassium 3.9 mmol/L (3.5-5.1) 07/03/19 06:30 Chloride 102 mmol/L (98-107) 07/03/19 06:30 Carbon Dioxide 28 mmol/L (21-32) 07/03/19 06:30 Anion Gap 8 MMOL/L (8-16) 07/03/19 06:30 BUN 13.2 mg/dL (7-18) 07/03/19 06:30 Creatinine 0.4 mg/dL (0.55-1.3) L 07/03/19 06:30 Random Glucose 72 mg/dL (74-106) L 07/03/19 06:30 Calcium 8.1 mg/dL (8.5-10.1) L 07/03/19 06:30 Total Bilirubin 0.4 mg/dL (0.2-1) 07/03/19 06:30 AST 13 U/L (15-37) L 07/03/19 06:30 ALT < 6 U/L (13-61) L 07/03/19 06:30 Alkaline Phosphatase 85 U/L (45-117) 07/03/19 06:30 Total Protein 5.2 g/dl (6.4-8.2) L 07/03/19 06:30 Albumin 1.8 g/dl (3.4-5.0) L 07/03/19 06:30 Current Medications Generic Name Dose Route Start Last Admin Trade Name Freq PRN Reason Stop Dose Admin Acetaminophen 650 mg 07/03/19 17:34 Tylenol - PO Q6H PRN fever of 100.4 Collagenase 1 applic 05/18/19 16:00 07/03/19 15:19 Santyl - TP 1 applic DAILY GLORY Administration Protocol Docusate Sodium 200 mg 06/14/19 19:33 06/19/19 10:13 Colace Liquid - PO 200 mg DAILY PRN Administration CONSTIPATION Heparin Sodium (Porcine) 5,000 unit 06/12/19 14:00 07/03/19 15:19 Heparin - SQ 5,000 unit TID GLORY Administration Cefazolin Sodium/Dextrose 2 gm in 50 mls @ 100 mls/hr 06/03/19 10:30 09:50 Ancef 2 Gm Premixed Ivpb - IVPB 100 mls/hr Q8H-IV GLORY Administration Oseltamivir Phosphate 75 mg 07/03/19 16:53 Tamiflu - PO 07/08/19 16:48 BID GLORY Polyethylene Glycol 17 gm 06/29/19 13:00 07/03/19 09:59 Miralax (For Daily Use) - PO Not Given DAILY [facility] Home Medications Medication Instructions Recorded Levothyroxine [Synthroid -] 50 mcg PO DAILY 06/21/14 Ranitidine [Zantac -] 150 mg PO BID #30 tablet 07/16/18 Collagenase Clostridium Hist. 1 applic TP DAILY tube 06/04/19 [Santyl -] Cefazolin (Pre-Docked) [Ancef 1Gm 2 gm IVPB Q8H #11 bag 07/01/19 Ivpb (Pre-Docked)] Microbiology 05/24/19 11:20 Blood - Peripheral Venous Blood Culture - Final NO GROWTH AFTER 5 DAYS INCUBATION 05/24/19 10:00 Blood - Peripheral Venous Blood Culture - Final NO GROWTH AFTER 5 DAYS INCUBATION 05/21/19 07:20 Blood - Peripheral Venous Blood Culture - Final Staphylococcus Aureus 05/21/19 07:10 Blood - Peripheral Venous Blood Culture - Final Staphylococcus Aureus 05/19/19 12:05 Buttock - Right Gram Stain - Final 05/19/19 12:05 Buttock - Right Wound Culture - Final Escherichia Coli Pseudomonas Aeruginosa Staphylococcus Coagulase Neg Enterococcus Faecalis Proteus Mirabilis 05/17/19 22:32 Blood - Peripheral Venous Blood Culture - Final Staphylococcus Aureus 05/18/19 18:15 Blood - Peripheral Venous Blood Culture - Final Staphylococcus Aureus 05/18/19 18:00 Blood - Peripheral Venous Blood Culture - Final Staphylococcus Aureus 05/18/19 00:17 Urine - Urine Clean Catch Urine Culture - Final Klebsiella Pneumoniae 05/17/19 22:32 Blood - Peripheral Venous Blood Culture - Final Staphylococcus Aureus Laboratory Tests 07/03/19 13:30 Influenza A (Rapid) Positive A Influenza B (Rapid) Negative Assessment and plan: Patient is an 89yof , was presented with sepsis and was found to have MSSA bacteremia with increased lethargy on admission. # Fever, lethargic , tested for positive flu, will start the patient on Tamiflu , discussed with ID dr rene, isolation droplet. # s/p severe sepsis: improved , continue IV antibiotics # MSSA bacteremia: cleared, cont. cefazolin needs total of 6 weeks. today day 41 /42, last day tomorrow. # hypotension: improved , will continue to monitor # Stage 4 Decub ulcer # Severe protein calorie malnutrition. on puree diet # Cachexia : off clinimix now since patient is eating # hypernatremia: resolved # Klebsiella UTI # Anemia transfuse prn SQ heparin for DVT px. . cont diet DVT Px: hep SQ bowel regimen continue to wait for placement. blood cx was ordered earlier today since was having fever of over 100.4 Visit type - Emergency Visit Emergency Visit: Yes ED Registration Date: 05/18/19 Care time: The patient presented to the Emergency Department on the above date and was hospitalized for further evaluation of their emergent condition. - New Patient This patient is new to me today: No - Critical Care Critical Care patient: No - Discharge Referral Referred to [facility] No
[2019-07-03] MEDS ORDERED: OSELTAMIVIR PHOSPHATE 75 MG CAPSULE PO SCH (22:00)
[2019-07-03] MEDS: OSELTAMIVIR PHOSPHATE 75 MG CAPSULE PO SCH (22:09)
[2019-07-04] MEDS: CEFAZOLIN 2 GM/D5W 2 GM/50 ML ML IVPB SCH ×3 (01:48→17:21)
[2019-07-04] MEDS: ACETAMINOPHEN 325 MG TABLET (FP) PO PRN ×2 (02:00→11:42)
[2019-07-04] MEDS: HEPARIN NA (PORCINE) 5,000 UNITS/ML 1ML VIAL SQ SCH ×3 (06:08→21:29)
[2019-07-04] MEDS ORDERED: PT OWN MED DRAWER 7, Y5N ONE ×2 (06:41→09:44)
[2019-07-04] MEDS ORDERED: SODIUM CHLORIDE 250 ML IV STA (08:38)
[2019-07-04] MEDS: COLLAGENASE CLOSTRIDIUM HIST. 30 GRAMS TUBE TP SCH (11:18)
[2019-07-04] MEDS: POLYETHYLENE GLYCOL 3350 119 GM BTL PO SCH (11:18)
[2019-07-04] MEDS: OSELTAMIVIR PHOSPHATE 75 MG CAPSULE PO SCH ×2 (11:19→21:30)
--- NOTE | 2019-07-04 15:33 | PN ---
Physical Exam: SUBJECTIVE: Patient seen and examined O/N: 102.7F, given acetaminophen Not communicating OBJECTIVE: Vital Signs Period Temp Pulse Resp BP Sys/Chinchilla Pulse Ox Last 24 Hr 98.6 F-102.7 F 90-102 18-20 92-122/47-76 97-98 GENERAL: Awake and alert, not in distress. HEAD: Normal with no signs of trauma. Tooth loss. EYES: Conjunctiva clear. EOM intact. ENT: Ears normal, nares patent, moist mucous membranes NECK: Trachea midline LUNGS: Clear to auscultation bilaterally, no wheezes HEART: Regular rate and rhythm, 3/6 systolic murmur ABDOMEN: Non-distended non-tender on palpation, normoactive bowel sounds BACK: stage 4 sacral ulcer and right trochanteric ulcer EXTREMITIES: well-perfused, +1 pitting edema left foot, trace edema right foot, right arm PICC with no erythema, arms contracted NEUROLOGICAL: Cannot be assessed. PSYCH: Cannot be assessed. SKIN: Warm, dry Laboratory Results - last 24 hr 07/03/19 07/04/19 17:07 05:54 POC Glucometer 59 75 Active Medications Generic Name Dose Route Start Last Admin Trade Name Freq PRN Reason Stop Dose Admin Acetaminophen 650 mg 07/03/19 17:34 07/04/19 11:42 Tylenol - PO 650 mg Q6H PRN Administration fever of 100.4 Collagenase 1 applic 05/18/19 16:00 07/04/19 11:18 Santyl - TP 1 applic DAILY GLORY Administration Protocol Docusate Sodium 200 mg 06/14/19 19:33 06/19/19 10:13 Colace Liquid - PO 200 mg DAILY PRN Administration CONSTIPATION Heparin Sodium (Porcine) 5,000 unit 06/12/19 14:00 07/04/19 06:08 Heparin - SQ 5,000 unit TID GLORY Administration Cefazolin Sodium/Dextrose 2 gm in 50 mls @ 100 mls/hr 06/03/19 10:30 11:18 Ancef 2 Gm Premixed Ivpb - IVPB 100 mls/hr Q8H-IV GLORY Administration Oseltamivir Phosphate 75 mg 07/03/19 16:53 07/04/19 11:19 Tamiflu - PO 07/08/19 16:48 75 mg BID GLORY Administration Polyethylene Glycol 17 gm 06/29/19 13:00 07/04/19 11:18 Miralax (For Daily Use) - PO Not Given DAILY GLORY ASSESSMENT/PLAN: 89y/o female (hospice patient prior to admission) with dementia, HTN, recurrent UTI, constipation, hypothyroidism, and malnutrition who presents with increased weakness and lethargy. Pt was admitted for severe sepsis 2/2 UTI and bacteremia. Influenza A, positive. 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, improved -last set of blood cx negative on 05/24 -Cefazolin 2gm Q8H, continue for 6 weeks after negative cx (07/04/19 end date) --currently day 42 of 42 # Influenza A infection > Influenza(07/03/19) A positive - Tamiflu --day#2 #stage 4 decubitus ulcer, sacral and right trochanteric -drainage present but does not need to be cultured -continue abx -monitor #severe dehydration and malnutrition, improved -dextrose PRN with BGM -dysphagia diet -dietary following #microcytic anemia s/p 2 units PRBCs --Hb improved > Hgb 10.7 -s/p pRBC x3, total, this admission #constipation, improved -colace 200mg daily PRN -miralax #dysphagia -pt is able to drink miralax mixed with water #hypophosphatemia, resolved #hyperchloridemia, resolved #hypokalemia, resolved #hypernatremia, resolved #hypomagnesemia, resolved #oral thrush, resolved DVT Ppx heparin FEN PO fluids dysphagia puree diet code status DNR/DNI dispo waiting on placement, insurance available on 06/30/19 for placement Visit type - Emergency Visit Emergency Visit: No - New Patient This patient is new to me today: No - Critical Care Critical Care patient: No ATTENDING PHYSICIAN STATEMENT I saw and evaluated the patient. I reviewed the resident's note and discussed the case with the resident. I agree with the resident's findings and plan as documented. SUBJECTIVE: OBJECTIVE: ASSESSMENT AND PLAN:
--- NOTE | 2019-07-04 19:04 | PN ---
Teaching Attending Note Name of Resident: Shelton Medina ATTENDING PHYSICIAN STATEMENT I saw and evaluated the patient. I reviewed the resident's note and discussed the case with the resident. I agree with the resident's findings and plan as documented. SUBJECTIVE: Patient is feeling better on Tamiflu Vital Signs Temperature 98.6 F 07/04/19 18:00 Pulse Rate 90 07/04/19 18:00 Respiratory Rate 18 07/04/19 18:00 Blood Pressure 93/49 L 07/04/19 18:00 O2 Sat by Pulse Oximetry (%) 97 07/04/19 09:00 GENERAL: The patient is nonverbal, contracted, but comfortable HEAD: Normal with no signs of trauma. EYES: PERRL, EOMI, sclera anicteric, conjunctiva clear. ENT: Ears normal, dry mucus membrane , dry skin NECK: Trachea midline, full range of motion, supple. LUNGS: decreased Breath sounds bl , no wheezes, no crackles, no accessory muscle use. HEART: Regular rate and rhythm, S1, S2 positive, SHIMON 2/6 , no rub or gallop. ABDOMEN: Soft, NT,ND, normoactive bowel sounds, no guarding, no rebound, no hepatosplenomegaly, no masses. EXTREMITIES: 2+ pulses, warm, contracted LE , + edema 2+ NEUROLOGICAL: Cranial nerves II through XII grossly intact. gait not observed. PSYCH: non verbal , skin: Warm ,dry skin Decub ulcer, stage 4, no discharge , no erythema, minimal drainage from the right hip diminished . CBCD WBC 9.1 K/mm3 (4.0-10.0) 07/03/19 06:30 RBC 3.85 M/mm3 (3.60-5.2) 07/03/19 06:30 Hgb 10.7 GM/dL (10.7-15.3) 07/03/19 06:30 Hct 32.5 % (32.4-45.2) 07/03/19 06:30 MCV 84.3 fl (80-96) 07/03/19 06:30 MCHC 33.0 g/dl (32.0-36.0) 07/03/19 06:30 RDW 18.2 % (11.6-15.6) H 07/03/19 06:30 Plt Count 222 K/MM3 (134-434) 07/03/19 06:30 MPV 9.0 fl (7.5-11.1) 07/03/19 06:30 CMP Sodium 138 mmol/L (136-145) 07/03/19 06:30 Potassium 3.9 mmol/L (3.5-5.1) 07/03/19 06:30 Chloride 102 mmol/L (98-107) 07/03/19 06:30 Carbon Dioxide 28 mmol/L (21-32) 07/03/19 06:30 Anion Gap 8 MMOL/L (8-16) 07/03/19 06:30 BUN 13.2 mg/dL (7-18) 07/03/19 06:30 Creatinine 0.4 mg/dL (0.55-1.3) L 07/03/19 06:30 Random Glucose 72 mg/dL (74-106) L 07/03/19 06:30 Calcium 8.1 mg/dL (8.5-10.1) L 07/03/19 06:30 Total Bilirubin 0.4 mg/dL (0.2-1) 07/03/19 06:30 AST 13 U/L (15-37) L 07/03/19 06:30 ALT < 6 U/L (13-61) L 07/03/19 06:30 Alkaline Phosphatase 85 U/L (45-117) 07/03/19 06:30 Total Protein 5.2 g/dl (6.4-8.2) L 07/03/19 06:30 Albumin 1.8 g/dl (3.4-5.0) L 07/03/19 06:30 Current Medications Generic Name Dose Route Start Last Admin Trade Name Freq PRN Reason Stop Dose Admin Acetaminophen 650 mg 07/03/19 17:34 07/04/19 11:42 Tylenol - PO 650 mg Q6H PRN Administration fever of 100.4 Collagenase 1 applic 05/18/19 16:00 07/04/19 11:18 Santyl - TP 1 applic DAILY GLORY Administration Protocol Docusate Sodium 200 mg 06/14/19 19:33 06/19/19 10:13 Colace Liquid - PO 200 mg DAILY PRN Administration CONSTIPATION Heparin Sodium (Porcine) 5,000 unit 06/12/19 14:00 07/04/19 17:21 Heparin - SQ 5,000 unit TID GLORY Administration Cefazolin Sodium/Dextrose 2 gm in 50 mls @ 100 mls/hr 06/03/19 10:30 17:21 Ancef 2 Gm Premixed Ivpb - IVPB 100 mls/hr Q8H-IV GLORY Administration Oseltamivir Phosphate 75 mg 07/03/19 16:53 07/04/19 11:19 Tamiflu - PO 07/08/19 16:48 75 mg BID GLORY Administration Polyethylene Glycol 17 gm 06/29/19 13:00 07/04/19 11:18 Miralax (For Daily Use) - PO Not Given DAILY [facility] Home Medications Medication Instructions Recorded Levothyroxine [Synthroid -] 50 mcg PO DAILY 06/21/14 Ranitidine [Zantac -] 150 mg PO BID #30 tablet 07/16/18 Collagenase Clostridium Hist. 1 applic TP DAILY tube 06/04/19 [Santyl -] Cefazolin (Pre-Docked) [Ancef 1Gm 2 gm IVPB Q8H #11 bag 07/01/19 Ivpb (Pre-Docked)] Laboratory Tests 07/03/19 13:30 Influenza A (Rapid) Positive A Influenza B (Rapid) Negative Microbiology 07/03/19 12:00 Blood - Peripheral Venous Blood Culture - Preliminary NO GROWTH OBTAINED AFTER 48 HOURS, INCUBATION TO CONTINUE FOR 3 DAYS. 07/03/19 12:19 Blood - Peripheral Venous Blood Culture - Preliminary NO GROWTH OBTAINED AFTER 48 HOURS, INCUBATION TO CONTINUE FOR 3 DAYS. 05/24/19 11:20 Blood - Peripheral Venous Blood Culture - Final NO GROWTH AFTER 5 DAYS INCUBATION 05/24/19 10:00 Blood - Peripheral Venous Blood Culture - Final NO GROWTH AFTER 5 DAYS INCUBATION 05/21/19 07:20 Blood - Peripheral Venous Blood Culture - Final Staphylococcus Aureus 05/21/19 07:10 Blood - Peripheral Venous Blood Culture - Final Staphylococcus Aureus 05/19/19 12:05 Buttock - Right Gram Stain - Final 05/19/19 12:05 Buttock - Right Wound Culture - Final Escherichia Coli Pseudomonas Aeruginosa Staphylococcus Coagulase Neg Enterococcus Faecalis Proteus Mirabilis 05/17/19 22:32 Blood - Peripheral Venous Blood Culture - Final Staphylococcus Aureus 05/18/19 18:15 Blood - Peripheral Venous Blood Culture - Final Staphylococcus Aureus 05/18/19 18:00 Blood - Peripheral Venous Blood Culture - Final Staphylococcus Aureus 05/18/19 00:17 Urine - Urine Clean Catch Urine Culture - Final Klebsiella Pneumoniae 05/17/19 22:32 Blood - Peripheral Venous Blood Culture - Final Staphylococcus Aureus Assessment and plan: Patient is an 89yof , was presented with sepsis and was found to have MSSA bacteremia with increased lethargy on admission. # Fever, lethargic , tested for positive flu, on Tamiflu continue , ID dr rene , isolation droplet continue, will continue to monitor # s/p severe sepsis: improved. # MSSA bacteremia: cleared, cont. cefazolin needs total of 6 weeks. today day completed the antibiotics # hypotension: improved , will continue to monitor # Stage 4 Decub ulcer # Severe protein calorie malnutrition. on puree diet # Cachexia : off clinimix now since patient is eating # hypernatremia: resolved # Klebsiella UTI # Anemia transfuse prn SQ heparin for DVT px. . cont diet DVT Px: hep SQ bowel regimen continue to wait for placement. blood cx was ordered earlier today since was having fever of over 100.4
[2019-07-05] MEDS: CEFAZOLIN 2 GM/D5W 2 GM/50 ML ML IVPB SCH ×2 (01:45→10:23)
[2019-07-05] MEDS: HEPARIN NA (PORCINE) 5,000 UNITS/ML 1ML VIAL SQ SCH ×3 (06:19→21:29)
[2019-07-05 07:27] LABS: HEMATOCRIT 28.3 % (32.4-45.2); HEMOGLOBIN 9.2 GM/dL (10.7-15.3); MCH 27.2 pg (25.7-33.7); MCHC 32.6 g/dl (32.0-36.0); MEAN CELL VOLUME 83.5 fl (80-96); MEAN PLT VOLUME 8.4 fl (7.5-11.1); PLATELET COUNT 179 K/MM3 (134-434); RBC 3.39 M/mm3 (3.60-5.2); RDW 18.7 % (11.6-15.6); WHITE BLOOD COUNT 5.8 K/mm3 (4.0-10.0)
[2019-07-05 07:55] LABS: BLOOD UREA NITROGEN 16.3 mg/dL (7-18); CALCIUM 7.5 mg/dL (8.5-10.1); CREATININE 0.4 mg/dL (0.55-1.3); MAGNESIUM 2.1 mg/dL (1.8-2.4); PHOSPHOROUS 2.7 mg/dL (2.5-4.9); POTASSIUM 3.5 mmol/L (3.5-5.1)
[2019-07-05] MEDS ORDERED: PT OWN MED DRAWER 7, Y5N ONE ×3 (10:13→18:21)
[2019-07-05] MEDS: POLYETHYLENE GLYCOL 3350 119 GM BTL PO SCH (10:22)
[2019-07-05] MEDS: ACETAMINOPHEN 325 MG TABLET (FP) PO PRN (10:23)
[2019-07-05] MEDS: OSELTAMIVIR PHOSPHATE 75 MG CAPSULE PO SCH ×2 (10:23→21:29)
[2019-07-05] MEDS: COLLAGENASE CLOSTRIDIUM HIST. 30 GRAMS TUBE TP SCH (10:25)
--- NOTE | 2019-07-05 14:40 | PN ---
Physical Exam: SUBJECTIVE: Patient seen and examined. Pt is non-verbal. OBJECTIVE: Vital Signs Period Temp Pulse Resp BP Sys/Chinchilla Pulse Ox Last 24 Hr 98.2 F-99.6 F 72-94 18-20 93-119/49-91 97 GENERAL: Awake and alert. Being fed breakfast. HEAD: Normal with no signs of trauma. Tooth loss. EYES: Conjunctiva clear. EOM intact. ENT: Ears normal, nares patent, moist mucous membranes NECK: Trachea midline LUNGS: Clear to auscultation bilaterally, no wheezes HEART: Regular rate and rhythm, 3/6 systolic murmur ABDOMEN: Non-distended, non-tender on palpation, normoactive bowel sounds BACK: stage 4 sacral ulcer and right trochanteric ulcer bandaged EXTREMITIES: well-perfused, +1 pitting edema left foot, trace edema right foot, right arm PICC with no erythema, arms contracted NEUROLOGICAL: Cannot be assessed. PSYCH: Cannot be assessed. SKIN: Warm, dry Laboratory Results - last 24 hr 07/04/19 07/04/19 07/05/19 17:24 17:25 05:41 WBC RBC Hgb Hct MCV MCH MCHC RDW Plt Count MPV Sodium Potassium Chloride Carbon Dioxide Anion Gap BUN Creatinine Est GFR (CKD-EPI)AfAm Est GFR (CKD-EPI)NonAf POC Glucometer 146 122 88 Random Glucose Calcium Phosphorus Magnesium 07/05/19 07/05/19 07:00 07:00 WBC 5.8 RBC 3.39 L Hgb 9.2 L Hct 28.3 L MCV 83.5 MCH 27.2 MCHC 32.6 RDW 18.7 H Plt Count 179 MPV 8.4 Sodium 137 Potassium 3.5 Chloride 102 Carbon Dioxide 29 Anion Gap 5 L BUN 16.3 Creatinine 0.4 L Est GFR (CKD-EPI)AfAm 107.03 Est GFR (CKD-EPI)NonAf 92.34 POC Glucometer Random Glucose 77 Calcium 7.5 L Phosphorus 2.7 Magnesium 2.1 Active Medications Generic Name Dose Route Start Last Admin Trade Name Freq PRN Reason Stop Dose Admin Acetaminophen 650 mg 07/03/19 17:34 07/05/19 10:23 Tylenol - PO 650 mg Q6H PRN Administration fever of 100.4 Collagenase 1 applic 05/18/19 16:00 07/05/19 10:25 Santyl - TP 1 applic DAILY GLORY Administration Protocol Docusate Sodium 200 mg 06/14/19 19:33 06/19/19 10:13 Colace Liquid - PO 200 mg DAILY PRN Administration CONSTIPATION Heparin Sodium (Porcine) 5,000 unit 06/12/19 14:00 07/05/19 06:19 Heparin - SQ 5,000 unit TID GLORY Administration Oseltamivir Phosphate 75 mg 07/03/19 16:53 07/05/19 10:23 Tamiflu - PO 07/08/19 16:48 75 mg BID GLORY Administration Polyethylene Glycol 17 gm 06/29/19 13:00 07/05/19 10:22 Miralax (For Daily Use) - PO 17 grams DAILY GLORY Administration ASSESSMENT/PLAN: Ms. Rust is an 89y/o female (hospice patient prior to admission) with dementia , HTN, recurrent UTI, constipation, hypothyroidism, and malnutrition who presents with increased weakness and lethargy. Pt was admitted for severe sepsis 2/2 UTI and bacteremia. 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, resolved -last set of blood cx negative on 05/24 and 07/03 -Cefazolin 2gm Q8H to be discontinued today #stage 4 decubitus ulcer, sacral and right trochanteric -drainage present but does not need to be cultured -wound care -monitor #severe dehydration and malnutrition, improved -dextrose PRN with BGM -dysphagia diet -dietary following #microcytic anemia s/p 2 units PRBCs -Hb improved -3 total this admission #constipation, improved -colace 200mg daily PRN -miralax #dysphagia -pt is able to drink miralax mixed with water #hypophosphatemia, resolved #hyperchloridemia, resolved #hypokalemia, resolved #hypernatremia, resolved #hypomagnesemia, resolved #oral thrush, resolved DVT Ppx heparin FEN PO fluids dysphagia puree diet code status DNR/DNI dispo placement pending insurance Visit type - Emergency Visit Emergency Visit: Yes ED Registration Date: 05/18/19 Care time: The patient presented to the Emergency Department on the above date and was hospitalized for further evaluation of their emergent condition. - New Patient This patient is new to me today: No - Critical Care Critical Care patient: No - Discharge Referral Referred to [facility] No ATTENDING PHYSICIAN STATEMENT I saw and evaluated the patient. I reviewed the resident's note and discussed the case with the resident. I agree with the resident's findings and plan as documented. SUBJECTIVE: OBJECTIVE: ASSESSMENT AND PLAN:
--- NOTE | 2019-07-05 20:36 | PN ---
Teaching Attending Note Name of Resident: Padmaja Henderson ATTENDING PHYSICIAN STATEMENT I saw and evaluated the patient. I reviewed the resident's note and discussed the case with the resident. I agree with the resident's findings and plan as documented. SUBJECTIVE: Patient is feeling better on Tamiflu , fever improved Vital Signs Temperature 99.0 F 07/05/19 18:29 Pulse Rate 84 07/05/19 18:29 Respiratory Rate 18 07/05/19 18:29 Blood Pressure 106/76 07/05/19 18:29 O2 Sat by Pulse Oximetry (%) 97 07/05/19 09:00 GENERAL: The patient is nonverbal, contracted, but comfortable HEAD: Normal with no signs of trauma. EYES: PERRL, EOMI, sclera anicteric, conjunctiva clear. ENT: Ears normal, dry mucus membrane , dry skin NECK: Trachea midline, full range of motion, supple. LUNGS: decreased Breath sounds bl , no wheezes, no crackles, no accessory muscle use. HEART: Regular rate and rhythm, S1, S2 positive, SHIMON 2/6 , no rub or gallop. ABDOMEN: Soft, NT,ND, normoactive bowel sounds, no guarding, no rebound, no hepatosplenomegaly, no masses. EXTREMITIES: 2+ pulses, warm, contracted LE , + edema 2+ NEUROLOGICAL: Cranial nerves II through XII grossly intact. gait not observed. PSYCH: non verbal , skin: Warm ,dry skin Decub ulcer, stage 4, no discharge , no erythema, minimal drainage from the right hip diminished . CBCD WBC 5.8 K/mm3 (4.0-10.0) 07/05/19 07:00 RBC 3.39 M/mm3 (3.60-5.2) L 07/05/19 07:00 Hgb 9.2 GM/dL (10.7-15.3) L 07/05/19 07:00 Hct 28.3 % (32.4-45.2) L 07/05/19 07:00 MCV 83.5 fl (80-96) 07/05/19 07:00 MCHC 32.6 g/dl (32.0-36.0) 07/05/19 07:00 RDW 18.7 % (11.6-15.6) H 07/05/19 07:00 Plt Count 179 K/MM3 (134-434) 07/05/19 07:00 MPV 8.4 fl (7.5-11.1) 07/05/19 07:00 CMP Sodium 137 mmol/L (136-145) 07/05/19 07:00 Potassium 3.5 mmol/L (3.5-5.1) 07/05/19 07:00 Chloride 102 mmol/L (98-107) 07/05/19 07:00 Carbon Dioxide 29 mmol/L (21-32) 07/05/19 07:00 Anion Gap 5 MMOL/L (8-16) L 07/05/19 07:00 BUN 16.3 mg/dL (7-18) 07/05/19 07:00 Creatinine 0.4 mg/dL (0.55-1.3) L 07/05/19 07:00 Random Glucose 77 mg/dL (74-106) 07/05/19 07:00 Calcium 7.5 mg/dL (8.5-10.1) L 07/05/19 07:00 Total Bilirubin 0.4 mg/dL (0.2-1) 07/03/19 06:30 AST 13 U/L (15-37) L 07/03/19 06:30 ALT < 6 U/L (13-61) L 07/03/19 06:30 Alkaline Phosphatase 85 U/L (45-117) 07/03/19 06:30 Total Protein 5.2 g/dl (6.4-8.2) L 07/03/19 06:30 Albumin 1.8 g/dl (3.4-5.0) L 07/03/19 06:30 Current Medications Generic Name Dose Route Start Last Admin Trade Name Rona PRN Reason Stop Dose Admin Acetaminophen 650 mg 07/03/19 17:34 07/05/19 10:23 Tylenol - PO 650 mg Q6H PRN Administration fever of 100.4 Collagenase 1 applic 05/18/19 16:00 07/05/19 10:25 Santyl - TP 1 applic DAILY GLORY Administration Protocol Docusate Sodium 200 mg 06/14/19 19:33 06/19/19 10:13 Colace Liquid - PO 200 mg DAILY PRN Administration CONSTIPATION Heparin Sodium (Porcine) 5,000 unit 06/12/19 14:00 07/05/19 14:40 Heparin - SQ 5,000 unit TID GLORY Administration Oseltamivir Phosphate 75 mg 07/03/19 16:53 07/05/19 10:23 Tamiflu - PO 07/08/19 16:48 75 mg BID GLORY Administration Polyethylene Glycol 17 gm 06/29/19 13:00 07/05/19 10:22 Miralax (For Daily Use) - PO 17 grams DAILY GLORY Administration Home Medications Medication Instructions Recorded Levothyroxine [Synthroid -] 50 mcg PO DAILY 06/21/14 Ranitidine [Zantac -] 150 mg PO BID #30 tablet 07/16/18 Collagenase Clostridium Hist. 1 applic TP DAILY tube 06/04/19 [Santyl -] Cefazolin (Pre-Docked) [Ancef 1Gm 2 gm IVPB Q8H #11 bag 07/01/19 Ivpb (Pre-Docked)] Laboratory Tests 07/03/19 13:30 Influenza A (Rapid) Positive A Influenza B (Rapid) Negative Microbiology 07/03/19 12:00 Blood - Peripheral Venous Blood Culture - Preliminary NO GROWTH OBTAINED AFTER 48 HOURS, INCUBATION TO CONTINUE FOR 3 DAYS. 07/03/19 12:19 Blood - Peripheral Venous Blood Culture - Preliminary NO GROWTH OBTAINED AFTER 48 HOURS, INCUBATION TO CONTINUE FOR 3 DAYS. 05/24/19 11:20 Blood - Peripheral Venous Blood Culture - Final NO GROWTH AFTER 5 DAYS INCUBATION 05/24/19 10:00 Blood - Peripheral Venous Blood Culture - Final NO GROWTH AFTER 5 DAYS INCUBATION 05/21/19 07:20 Blood - Peripheral Venous Blood Culture - Final Staphylococcus Aureus 05/21/19 07:10 Blood - Peripheral Venous Blood Culture - Final Staphylococcus Aureus 05/19/19 12:05 Buttock - Right Gram Stain - Final 05/19/19 12:05 Buttock - Right Wound Culture - Final Escherichia Coli Pseudomonas Aeruginosa Staphylococcus Coagulase Neg Enterococcus Faecalis Proteus Mirabilis 05/17/19 22:32 Blood - Peripheral Venous Blood Culture - Final Staphylococcus Aureus 05/18/19 18:15 Blood - Peripheral Venous Blood Culture - Final Staphylococcus Aureus 05/18/19 18:00 Blood - Peripheral Venous Blood Culture - Final Staphylococcus Aureus 05/18/19 00:17 Urine - Urine Clean Catch Urine Culture - Final Klebsiella Pneumoniae 05/17/19 22:32 Blood - Peripheral Venous Blood Culture - Final Staphylococcus Aureus Assessment and plan: Patient is an 89yof , was presented with sepsis and was found to have MSSA bacteremia with increased lethargy on admission. # Fever, lethargic , tested for positive flu, on Tamiflu continue day 3/ , ID dr rene, isolation droplet continue, will continue to monitor # s/p severe sepsis: improved. # MSSA bacteremia: cleared, cont. cefazolin needs total of 6 weeks. today day completed the antibiotics # hypotension: improved , will continue to monitor # Stage 4 Decub ulcer # Severe protein calorie malnutrition. on puree diet # Cachexia : off clinimix now since patient is eating # hypernatremia: resolved # Klebsiella UTI # Anemia transfuse prn SQ heparin for DVT px. . cont diet DVT Px: hep SQ bowel regimen continue to wait for placement. blood cx was ordered earlier today since was having fever of over 100.4
[2019-07-06] MEDS: HEPARIN NA (PORCINE) 5,000 UNITS/ML 1ML VIAL SQ SCH ×3 (06:37→21:34)
[2019-07-06 08:00] LABS: BASO % 0.2 % (0-2.0); EOS % 0.1 % (0-4.5); HEMATOCRIT 28.1 % (32.4-45.2); HEMOGLOBIN 9.1 GM/dL (10.7-15.3); LYMPH % 26.8 % (8-40); MCH 27.1 pg (25.7-33.7); MCHC 32.4 g/dl (32.0-36.0); MEAN CELL VOLUME 83.6 fl (80-96); MEAN PLT VOLUME 8.3 fl (7.5-11.1); MONO % 6.2 % (3.8-10.2); NEUT % 66.7 % (42.8-82.8); PLATELET COUNT 186 K/MM3 (134-434); RBC 3.36 M/mm3 (3.60-5.2); RDW 18.4 % (11.6-15.6); WHITE BLOOD COUNT 5.3 K/mm3 (4.0-10.0)
[2019-07-06 08:30] LABS: ALBUMIN 1.5 g/dl (3.4-5.0); ALK PHOS 63 U/L (45-117); ANION GAP 6 MMOL/L (8-16); BILIRUBIN,TOTAL < 0.1 mg/dL (0.2-1); BLOOD UREA NITROGEN 16.1 mg/dL (7-18); CALCIUM 7.6 mg/dL (8.5-10.1); CHLORIDE 104 mmol/L (98-107); CO2 28 mmol/L (21-32); CREATININE 0.3 mg/dL (0.55-1.3); GLUCOSE,RANDOM 78 mg/dL (74-106); MAGNESIUM 2.1 mg/dL (1.8-2.4); PHOSPHOROUS 2.6 mg/dL (2.5-4.9); SGOT/AST 15 U/L (15-37); SGPT/ALT < 6 U/L (13-61); SODIUM 138 mmol/L (136-145); TOT PROT 4.3 g/dl (6.4-8.2)
--- NOTE | 2019-07-06 09:11 | PN ---
Teaching Attending Note Name of Resident: Padmaja Henderson ATTENDING PHYSICIAN STATEMENT I saw and evaluated the patient. I reviewed the resident's note and discussed the case with the resident. I agree with the resident's findings and plan as documented. SUBJECTIVE: Patient is feeling better on Tamiflu , fever improved Vital Signs Temperature 98.2 F 07/06/19 06:00 Pulse Rate 84 07/06/19 06:00 Respiratory Rate 20 07/06/19 06:00 Blood Pressure 111/45 L 07/06/19 06:00 O2 Sat by Pulse Oximetry (%) 97 07/05/19 21:00 GENERAL: The patient is nonverbal, contracted, but comfortable HEAD: Normal with no signs of trauma. EYES: PERRL, EOMI, sclera anicteric, conjunctiva clear. ENT: Ears normal, dry mucus membrane , dry skin NECK: Trachea midline, full range of motion, supple. LUNGS: decreased Breath sounds bl , no wheezes, no crackles, no accessory muscle use. HEART: Regular rate and rhythm, S1, S2 positive, SHIMON 2/6 , no rub or gallop. ABDOMEN: Soft, NT,ND, normoactive bowel sounds, no guarding, no rebound, no hepatosplenomegaly, no masses. EXTREMITIES: 2+ pulses, warm, contracted LE , + edema 2+ NEUROLOGICAL: Cranial nerves II through XII grossly intact. gait not observed. PSYCH: non verbal , skin: Warm ,dry skin Decub ulcer, stage 4, no discharge , no erythema, minimal drainage from the right hip diminished . CBCD WBC 5.3 K/mm3 (4.0-10.0) 07/06/19 06:25 RBC 3.36 M/mm3 (3.60-5.2) L 07/06/19 06:25 Hgb 9.1 GM/dL (10.7-15.3) L 07/06/19 06:25 Hct 28.1 % (32.4-45.2) L 07/06/19 06:25 MCV 83.6 fl (80-96) 07/06/19 06:25 MCHC 32.4 g/dl (32.0-36.0) 07/06/19 06:25 RDW 18.4 % (11.6-15.6) H 07/06/19 06:25 Plt Count 186 K/MM3 (134-434) 07/06/19 06:25 MPV 8.3 fl (7.5-11.1) 07/06/19 06:25 CMP Sodium 138 mmol/L (136-145) 07/06/19 06:25 Potassium 4.0 mmol/L (3.5-5.1) 07/06/19 06:25 Chloride 104 mmol/L (98-107) 07/06/19 06:25 Carbon Dioxide 28 mmol/L (21-32) 07/06/19 06:25 Anion Gap 6 MMOL/L (8-16) L 07/06/19 06:25 BUN 16.1 mg/dL (7-18) 07/06/19 06:25 Creatinine 0.3 mg/dL (0.55-1.3) L 07/06/19 06:25 Random Glucose 78 mg/dL (74-106) 07/06/19 06:25 Calcium 7.6 mg/dL (8.5-10.1) L 07/06/19 06:25 Total Bilirubin < 0.1 mg/dL (0.2-1) L 07/06/19 06:25 AST 15 U/L (15-37) 07/06/19 06:25 ALT < 6 U/L (13-61) L 07/06/19 06:25 Alkaline Phosphatase 63 U/L (45-117) 07/06/19 06:25 Total Protein 4.3 g/dl (6.4-8.2) L 07/06/19 06:25 Albumin 1.5 g/dl (3.4-5.0) L 07/06/19 06:25 Current Medications Generic Name Dose Route Start Last Admin Trade Name Rona PRN Reason Stop Dose Admin Acetaminophen 650 mg 07/03/19 17:34 07/05/19 10:23 Tylenol - PO 650 mg Q6H PRN Administration fever of 100.4 Collagenase 1 applic 05/18/19 16:00 07/05/19 10:25 Santyl - TP 1 applic DAILY GLORY Administration Protocol Docusate Sodium 200 mg 06/14/19 19:33 06/19/19 10:13 Colace Liquid - PO 200 mg DAILY PRN Administration CONSTIPATION Heparin Sodium (Porcine) 5,000 unit 06/12/19 14:00 01/07/20 06:37 Heparin - SQ 5,000 unit TID GLORY Administration Oseltamivir Phosphate 75 mg 07/03/19 16:53 07/05/19 21:29 Tamiflu - PO 07/08/19 16:48 75 mg BID GLORY Administration Polyethylene Glycol 17 gm 06/29/19 13:00 07/05/19 10:22 Miralax (For Daily Use) - PO 17 grams DAILY GLORY Administration Home Medications Medication Instructions Recorded Levothyroxine [Synthroid -] 50 mcg PO DAILY 06/21/14 Ranitidine [Zantac -] 150 mg PO BID #30 tablet 07/16/18 Collagenase Clostridium Hist. 1 applic TP DAILY tube 06/04/19 [Santyl -] Cefazolin (Pre-Docked) [Ancef 1Gm 2 gm IVPB Q8H #11 bag 07/01/19 Ivpb (Pre-Docked)] Laboratory Tests 07/03/19 13:30 Influenza A (Rapid) Positive A Influenza B (Rapid) Negative Microbiology 07/03/19 12:00 Blood - Peripheral Venous Blood Culture - Preliminary NO GROWTH OBTAINED AFTER 48 HOURS, INCUBATION TO CONTINUE FOR 3 DAYS. 07/03/19 12:19 Blood - Peripheral Venous Blood Culture - Preliminary NO GROWTH OBTAINED AFTER 48 HOURS, INCUBATION TO CONTINUE FOR 3 DAYS. 05/24/19 11:20 Blood - Peripheral Venous Blood Culture - Final NO GROWTH AFTER 5 DAYS INCUBATION 05/24/19 10:00 Blood - Peripheral Venous Blood Culture - Final NO GROWTH AFTER 5 DAYS INCUBATION 05/21/19 07:20 Blood - Peripheral Venous Blood Culture - Final Staphylococcus Aureus 05/21/19 07:10 Blood - Peripheral Venous Blood Culture - Final Staphylococcus Aureus 05/19/19 12:05 Buttock - Right Gram Stain - Final 05/19/19 12:05 Buttock - Right Wound Culture - Final Escherichia Coli Pseudomonas Aeruginosa Staphylococcus Coagulase Neg Enterococcus Faecalis Proteus Mirabilis 05/17/19 22:32 Blood - Peripheral Venous Blood Culture - Final Staphylococcus Aureus 05/18/19 18:15 Blood - Peripheral Venous Blood Culture - Final Staphylococcus Aureus 05/18/19 18:00 Blood - Peripheral Venous Blood Culture - Final Staphylococcus Aureus 05/18/19 00:17 Urine - Urine Clean Catch Urine Culture - Final Klebsiella Pneumoniae 05/17/19 22:32 Blood - Peripheral Venous Blood Culture - Final Staphylococcus Aureus Assessment and plan: Patient is an 89yof , was presented with sepsis and was found to have MSSA bacteremia with increased lethargy on admission. # Fever, lethargic , tested for positive flu, on Tamiflu continue day 3.55 , ID dr rene, isolation droplet continue, will continue to monitor # s/p severe sepsis: improved. # MSSA bacteremia: cleared, cont. cefazolin needs total of 6 weeks. today day completed the antibiotics # hypotension: improved , will continue to monitor # Stage 4 Decub ulcer # Severe protein calorie malnutrition. on puree diet # Cachexia : off clinimix now since patient is eating # hypernatremia: resolved # Klebsiella UTI # Anemia transfuse prn SQ heparin for DVT px. . cont diet DVT Px: hep SQ bowel regimen continue to wait for placement.
--- NOTE | 2019-07-06 09:56 | PN ---
Physical Exam: SUBJECTIVE: Patient seen and examined. Pt is non-verbal. OBJECTIVE: Vital Signs Period Temp Pulse Resp BP Sys/Chinchilla Pulse Ox Last 24 Hr 98.2 F-99.1 F 80-88 18-20 94-118/45-76 97 GENERAL: Sleeping but arousable HEAD: Normal with no signs of trauma. Tooth loss. EYES: Conjunctiva clear. EOM intact. ENT: Ears normal, nares patent, moist mucous membranes NECK: Trachea midline LUNGS: Clear to auscultation bilaterally, no wheezes HEART: Regular rate and rhythm, 3/6 systolic murmur ABDOMEN: Non-distended, non-tender on palpation, normoactive bowel sounds BACK: stage 4 sacral ulcer and right trochanteric ulcer bandaged EXTREMITIES: well-perfused, +1 pitting edema left foot, trace edema right foot, right arm PICC with no erythema, arms contracted NEUROLOGICAL: Cannot be assessed. PSYCH: Cannot be assessed. SKIN: Warm, dry Laboratory Results - last 24 hr 07/05/19 07/06/19 07/06/19 18:04 06:25 06:25 WBC 5.3 RBC 3.36 L Hgb 9.1 L Hct 28.1 L MCV 83.6 MCH 27.1 MCHC 32.4 RDW 18.4 H Plt Count 186 MPV 8.3 Absolute Neuts (auto) 3.5 Neutrophils % 66.7 Lymphocytes % 26.8 D Monocytes % 6.2 Eosinophils % 0.1 D Basophils % 0.2 Nucleated RBC % 0 Sodium 138 Potassium 4.0 Chloride 104 Carbon Dioxide 28 Anion Gap 6 L BUN 16.1 Creatinine 0.3 L Est GFR (CKD-EPI)AfAm 117.65 Est GFR (CKD-EPI)NonAf 101.51 POC Glucometer 91 Random Glucose 78 Calcium 7.6 L Phosphorus 2.6 Magnesium 2.1 Total Bilirubin < 0.1 L AST 15 ALT < 6 L Alkaline Phosphatase 63 Total Protein 4.3 L Albumin 1.5 L 07/06/19 06:26 WBC RBC Hgb Hct MCV MCH MCHC RDW Plt Count MPV Absolute Neuts (auto) Neutrophils % Lymphocytes % Monocytes % Eosinophils % Basophils % Nucleated RBC % Sodium Potassium Chloride Carbon Dioxide Anion Gap BUN Creatinine Est GFR (CKD-EPI)AfAm Est GFR (CKD-EPI)NonAf POC Glucometer 50 Random Glucose Calcium Phosphorus Magnesium Total Bilirubin AST ALT Alkaline Phosphatase Total Protein Albumin Active Medications Generic Name Dose Route Start Last Admin Trade Name Rona PRN Reason Stop Dose Admin Acetaminophen 650 mg 07/03/19 17:34 07/05/19 10:23 Tylenol - PO 650 mg Q6H PRN Administration fever of 100.4 Collagenase 1 applic 05/18/19 16:00 07/05/19 10:25 Santyl - TP 1 applic DAILY GLORY Administration Protocol Docusate Sodium 200 mg 06/14/19 19:33 06/19/19 10:13 Colace Liquid - PO 200 mg DAILY PRN Administration CONSTIPATION Heparin Sodium (Porcine) 5,000 unit 06/12/19 14:00 07/06/19 06:37 Heparin - SQ 5,000 unit TID GLORY Administration Oseltamivir Phosphate 75 mg 07/03/19 16:53 07/05/19 21:29 Tamiflu - PO 07/08/19 16:48 75 mg BID GLORY Administration Polyethylene Glycol 17 gm 06/29/19 13:00 07/05/19 10:22 Miralax (For Daily Use) - PO 17 grams DAILY GLORY Administration ASSESSMENT/PLAN: Ms. Rust is an 89y/o female (hospice patient prior to admission) with dementia , HTN, recurrent UTI, constipation, hypothyroidism, and malnutrition who presents with increased weakness and lethargy. Pt was admitted for severe sepsis 2/2 UTI and bacteremia. 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, resolved -last set of blood cx negative on 05/24 and 07/03 -Cefazolin 2gm Q8H 6 weeks completed #stage 4 decubitus ulcer, sacral and right trochanteric -drainage present but does not need to be cultured -wound care consulted for specific instructions for ulcer care after discharge for VNS #severe dehydration and malnutrition, improved -dextrose PRN with BGM -dysphagia diet -dietary following #microcytic anemia s/p 2 units PRBCs -Hb improved -3 total this admission #constipation, improved -colace 200mg daily PRN -miralax #dysphagia -pt is able to drink miralax mixed with water #hypophosphatemia, resolved #hyperchloridemia, resolved #hypokalemia, resolved #hypernatremia, resolved #hypomagnesemia, resolved #oral thrush, resolved DVT Ppx heparin FEN PO fluids dysphagia puree diet code status DNR/DNI dispo placement pending insurance Visit type - Emergency Visit Emergency Visit: Yes ED Registration Date: 05/18/19 Care time: The patient presented to the Emergency Department on the above date and was hospitalized for further evaluation of their emergent condition. - New Patient This patient is new to me today: No - Critical Care Critical Care patient: No - Discharge Referral Referred to [facility] Med [facility] No ATTENDING PHYSICIAN STATEMENT I saw and evaluated the patient. I reviewed the resident's note and discussed the case with the resident. I agree with the resident's findings and plan as documented. SUBJECTIVE: OBJECTIVE: ASSESSMENT AND PLAN:
[2019-07-06] MEDS ORDERED: PT OWN MED DRAWER 7, Y5N ONE (10:19)
[2019-07-06] MEDS: COLLAGENASE CLOSTRIDIUM HIST. 30 GRAMS TUBE TP SCH (10:48)
[2019-07-06] MEDS: OSELTAMIVIR PHOSPHATE 75 MG CAPSULE PO SCH ×2 (10:48→21:35)
[2019-07-06] MEDS: POLYETHYLENE GLYCOL 3350 119 GM BTL PO SCH (10:49)
[2019-07-07] MEDS: HEPARIN NA (PORCINE) 5,000 UNITS/ML 1ML VIAL SQ SCH ×3 (05:35→21:57)
[2019-07-07] MEDS ORDERED: PT OWN MED DRAWER 7, Y5N ONE (11:52)
[2019-07-07] MEDS: COLLAGENASE CLOSTRIDIUM HIST. 30 GRAMS TUBE TP SCH (12:25)
[2019-07-07] MEDS: OSELTAMIVIR PHOSPHATE 75 MG CAPSULE PO SCH ×2 (12:25→21:57)
[2019-07-07] MEDS: POLYETHYLENE GLYCOL 3350 119 GM BTL PO SCH (12:26)
--- NOTE | 2019-07-07 16:02 | PN ---
Physical Exam: SUBJECTIVE: Patient seen and examined. Pt is non-verbal. OBJECTIVE: Vital Signs Period Temp Pulse Resp BP Sys/Chinchilla Pulse Ox Last 24 Hr 97.2 F-99.5 F 79-86 18-20 107-121/53-63 95 GENERAL: Sleepy HEAD: Normal with no signs of trauma. Tooth loss. EYES: Conjunctiva clear. EOM intact. ENT: Ears normal, nares patent, moist mucous membranes NECK: Trachea midline LUNGS: Clear to auscultation bilaterally, no wheezes HEART: Regular rate and rhythm, 3/6 systolic murmur ABDOMEN: Non-distended, non-tender on palpation, normoactive bowel sounds BACK: stage 4 sacral ulcer and right trochanteric ulcer bandaged EXTREMITIES: well-perfused, +1 pitting edema left foot, trace edema right foot, arms contracted NEUROLOGICAL: Cannot be assessed. PSYCH: Cannot be assessed. SKIN: Warm, dry Laboratory Results - last 24 hr 07/06/19 07/07/19 16:56 05:41 POC Glucometer 98 48 Active Medications Generic Name Dose Route Start Last Admin Trade Name Rona PRN Reason Stop Dose Admin Acetaminophen 650 mg 07/03/19 17:34 07/05/19 10:23 Tylenol - PO 650 mg Q6H PRN Administration fever of 100.4 Collagenase 1 applic 05/18/19 16:00 07/07/19 12:25 Santyl - TP 1 applic DAILY GLORY Administration Protocol Docusate Sodium 200 mg 06/14/19 19:33 06/19/19 10:13 Colace Liquid - PO 200 mg DAILY PRN Administration CONSTIPATION Heparin Sodium (Porcine) 5,000 unit 06/12/19 14:00 07/07/19 05:35 Heparin - SQ 5,000 unit TID GLORY Administration Oseltamivir Phosphate 75 mg 07/03/19 16:53 07/07/19 12:25 Tamiflu - PO 07/08/19 16:48 75 mg BID GLORY Administration Polyethylene Glycol 17 gm 06/29/19 13:00 07/07/19 12:26 Miralax (For Daily Use) - PO 17 grams DAILY GLORY Administration ASSESSMENT/PLAN: Ms. Rust is an 89y/o female (hospice patient prior to admission) with dementia , HTN, recurrent UTI, constipation, hypothyroidism, and malnutrition who presents with increased weakness and lethargy. Pt was admitted for severe sepsis 2/2 UTI and bacteremia. 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, resolved -last set of blood cx negative on 05/24 and 07/03 -Cefazolin 2gm Q8H 6 weeks completed -PICC removed #stage 4 decubitus ulcer, sacral and right trochanteric -drainage present but does not need to be cultured -wound care -monitor #severe dehydration and malnutrition, improved -dextrose PRN with BGM -dysphagia diet -dietary following #microcytic anemia s/p 2 units PRBCs -Hb improved -3 total this admission #constipation, improved -colace 200mg daily PRN -miralax #dysphagia -pt is able to drink miralax mixed with water #hypophosphatemia, resolved #hyperchloridemia, resolved #hypokalemia, resolved #hypernatremia, resolved #hypomagnesemia, resolved #oral thrush, resolved DVT Ppx heparin FEN PO fluids dysphagia puree diet code status DNR/DNI dispo placement pending home setup Visit type - Emergency Visit Emergency Visit: Yes ED Registration Date: 05/18/19 Care time: The patient presented to the Emergency Department on the above date and was hospitalized for further evaluation of their emergent condition. - New Patient This patient is new to me today: No - Critical Care Critical Care patient: No - Discharge Referral Referred to [facility] Med [facility].C.: No ATTENDING PHYSICIAN STATEMENT I saw and evaluated the patient. I reviewed the resident's note and discussed the case with the resident. I agree with the resident's findings and plan as documented. SUBJECTIVE: OBJECTIVE: ASSESSMENT AND PLAN:
--- NOTE | 2019-07-07 20:00 | PN ---
Teaching Attending Note Name of Resident: Padmaja Henderson ATTENDING PHYSICIAN STATEMENT I saw and evaluated the patient. I reviewed the resident's note and discussed the case with the resident. I agree with the resident's findings and plan as documented. SUBJECTIVE: No events OBJECTIVE: MMM. Non verbal.awake, tracts.contracted CV: RRR. Lungs: CTAB Abd: Soft, NT. ND. NL BS Ext: 1+ pitting edema feet. sacral decub ulcer stage 4 with no discharge. R posterior hip satge 4 with slough. no ulcers on L hip A/P: 1- Severe sepsis: resolved 2- MSSA bacteremia: cleared 3- Endocarditis 4- Influenza A 5- Stage 4 Decub ulcer 6- Severe protein calorie malnutrition. 7- Cachexia 8- hypernatremia: resolved 9- Klebsiella UTI 10- Anemia 11- constipation Plan: - cont tamiflu - finished her Abx - remove picc - cont diet - cont sq heparin - bowel regimen . Hos;ital bed is pendign delivery to allow for her dc home
[2019-07-08] MEDS: HEPARIN NA (PORCINE) 5,000 UNITS/ML 1ML VIAL SQ SCH ×3 (05:54→21:40)
[2019-07-08] MEDS: OSELTAMIVIR PHOSPHATE 75 MG CAPSULE PO SCH (10:19)
[2019-07-08] MEDS: POLYETHYLENE GLYCOL 3350 119 GM BTL PO SCH (10:28)
[2019-07-08] MEDS: COLLAGENASE CLOSTRIDIUM HIST. 30 GRAMS TUBE TP SCH (14:04)
--- NOTE | 2019-07-08 15:44 | PN ---
Physical Exam: SUBJECTIVE: Patient seen and examined. She is non-verbal. OBJECTIVE: Vital Signs Period Temp Pulse Resp BP Sys/Ch[place]illa Pulse Ox Last 24 Hr 97.6 F-98.0 F 82-99 18-18 92-124/62-69 96 GENERAL: awake and alert, makes eye contact HEAD: Normal with no signs of trauma. Tooth loss. EYES: Conjunctiva clear. EOM intact. ENT: Ears normal, nares patent, moist mucous membranes NECK: Trachea midline LUNGS: Clear to auscultation bilaterally, no wheezes HEART: Regular rate and rhythm, 3/6 systolic murmur ABDOMEN: Non-distended, non-tender on palpation, normoactive bowel sounds BACK: stage 4 sacral ulcer and right trochanteric ulcer bandaged EXTREMITIES: well-perfused, +1 pitting edema left foot, trace edema right foot, arms contracted NEUROLOGICAL: Cannot be assessed. PSYCH: Cannot be assessed. SKIN: Warm, dry Laboratory Results - last 24 hr 07/08/19 05:50 POC Glucometer 72 Active Medications Generic Name Dose Route Start Last Admin Trade Name Freq PRN Reason Stop Dose Admin Acetaminophen 650 mg 07/03/19 17:34 07/05/19 10:23 Tylenol - PO 650 mg Q6H PRN Administration fever of 100.4 Collagenase 1 applic 05/18/19 16:00 07/08/19 14:04 Santyl - TP 1 applic DAILY GLORY Administration Protocol Docusate Sodium 200 mg 06/14/19 19:33 06/19/19 10:13 Colace Liquid - PO 200 mg DAILY PRN Administration CONSTIPATION Heparin Sodium (Porcine) 5,000 unit 06/12/19 14:00 07/08/19 14:04 Heparin - SQ 5,000 unit TID GLORY Administration Oseltamivir Phosphate 75 mg 07/03/19 16:53 07/08/19 10:19 Tamiflu - PO 07/08/19 16:48 75 mg BID GLORY Administration Polyethylene Glycol 17 gm 06/29/19 13:00 07/08/19 10:28 Miralax (For Daily Use) - PO 17 grams DAILY GLORY Administration ASSESSMENT/PLAN: Ms. Rust is an 89y/o female (hospice patient prior to admission) with dementia , HTN, recurrent UTI, constipation, hypothyroidism, and malnutrition who presents with increased weakness and lethargy. Pt was admitted for severe sepsis 2/2 UTI and bacteremia. #influenza A -no fevers overnight -Tamiflu 75mg BID complete course today -infectious precautions 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, resolved -last set of blood cx negative on 05/24 and 07/03 -Cefazolin 2gm Q8H 6 weeks completed -PICC removed #stage 4 decubitus ulcer, sacral and right trochanteric -wound care -monitor #severe dehydration and malnutrition, improved -dextrose PRN with BGM -dysphagia diet -dietary following #microcytic anemia s/p 2 units PRBCs -Hb improved -3 total this admission #constipation, improved -colace 200mg daily PRN -miralax #dysphagia -pt is able to drink miralax mixed with water #hypophosphatemia, resolved #hyperchloridemia, resolved #hypokalemia, resolved #hypernatremia, resolved #hypomagnesemia, resolved #oral thrush, resolved DVT Ppx heparin FEN PO fluids dysphagia puree diet code status DNR/DNI dispo planned d/c home tomorrow VNS services to do wound care- apply Santyl to sacral and trochanteric ulcers daily Visit type - Emergency Visit Emergency Visit: Yes ED Registration Date: 05/18/19 Care time: The patient presented to the Emergency Department on the above date and was hospitalized for further evaluation of their emergent condition. - New Patient This patient is new to me today: No - Critical Care Critical Care patient: No - Discharge Referral Referred to [facility] Med P.C[facility] No ATTENDING PHYSICIAN STATEMENT I saw and evaluated the patient. I reviewed the resident's note and discussed the case with the resident. I agree with the resident's findings and plan as documented. SUBJECTIVE: OBJECTIVE: ASSESSMENT AND PLAN:
--- NOTE | 2019-07-08 18:32 | PN ---
Teaching Attending Note Name of Resident: Padmaja Henderson ATTENDING PHYSICIAN STATEMENT I saw and evaluated the patient. I reviewed the resident's note and discussed the case with the resident. I agree with the resident's findings and plan as documented. SUBJECTIVE: No events over night. has fever 100.5 now. OBJECTIVE: MMM. Non verbal.awake, tracts.contracted. eating dinner CV: RRR. Lungs: CTAB Abd: Soft, NT. ND. NL BS Ext: 1+ pitting edema feet. Sacral decub ulcer stage 4 with no discharge. A/P: 1- Severe sepsis: resolved 2- MSSA bacteremia: cleared 3- Endocarditis. 4- Influenza A. 5- Stage 4 Decub ulcer 6- Severe protein calorie malnutrition. 7- Cachexia 8- Hypernatremia: resolved 9- Klebsiella UTI 10- Anemia 11- Constipation Plan: - finished Tamiflu today - fever now. will hold off tylenol and trend curve - check UA , straight cath - cont diet - cont sq heparin - will ask surgical team to look at the R posterior hip decub in am. - bowel regimen .
[2019-07-08 20:03] LABS: EPI CELLS 3.4 /HPF (0-5/HPF); HYALINE CASTS 7 /lpf (0-8); PH,URINE 8.5 (5.0-8.0); URINE APPEARANCE CLEAR; URINE BACTERIA 0.2 /hpf (NEGATIVE); URINE BILIRUBIN NEGATIVE (NEGATIVE); URINE COLOR YELLOW; URINE GLUCOSE (UA) NEGATIVE (NEGATIVE); URINE KETONE NEGATIVE (NEGATIVE); URINE LEUK ESTERASE TRACE (NEGATIVE); URINE NITRITE NEGATIVE (NEGATIVE); URINE PROTEIN NEGATIVE (NEGATIVE); URINE RBC 7 /hpf (0-4); URINE UROBILINOGEN 0.2 mg/dL (0.2-1.0); URINE WBC 2 /hpf (0-5)
[2019-07-09] MEDS: HEPARIN NA (PORCINE) 5,000 UNITS/ML 1ML VIAL SQ SCH ×3 (05:24→21:44)
--- NOTE | 2019-07-09 08:46 | PN ---
Progress Note (short form) - Note Progress Note: Patient last seen by our surgical team on 05/18/19. We have been asked by the medical team to re-evaluate the patient's right hip wound. Plan for patient to return home to hospice. PMHX (obtained from EMR) 88 y/o F with h/o severe dementia, baseline bedbound, HTN, recurrent UTI, constipation, hypothyroidism, protein-calorie malnutrition who is DNR/DNI and on hospice. Vital Signs Temp 98.1 F 07/09/19 06:08 Pulse 88 07/09/19 06:08 Resp 18 07/09/19 06:08 BP 117/66 07/09/19 06:08 Pulse Ox 100 07/08/19 21:00 Intake & Output 07/08/19 07/08/19 07/09/19 11:59 23:59 11:59 Other: Voiding Method Incontinent Incontinent # Unmeasured Voids External Catheter 1 1 Void 1 Bowel Movement Yes CBC, BMP 07/06/19 06:25 07/06/19 06:25 PE: GENERAL: rousable but does not follow commands, no intentional movements, lethargic, severely cachectic HEAD: No signs of trauma, normocephalic, atraumatic LUNGS: Unlabored resp on RA Right greater trochanter with stage 4 ulcer @[id number] no evidence of undermining, no foul odor or active d/c. Problem List - Problems (1) Sacral decubitus ulcer, stage IV Assessment/Plan: Patient on palliative care with ulcer as described in exam. Given plan for home on hospice, it is most acceptable to treat with conservative measures such as daily wound care. -Reposition every two hours while in bed -Air mattress recommended -Use drawsheets and Trendelenburg when repositioning to reduce friction and shear -Manage incontinence via timely cleansing, use of appropriate incontinence disposables and use of barrier ointment to intact skin -Ensure adequate hydration/nutrition, supplementation per primary team -Ensure off-loading to all bony areas (heels, ankles, hips and tailbone) with Allevyn/Optifoam -Clean open wounds with normal saline and apply wet to dry dressing to right hip. Evaluation and plan discussed with Dr. Devi Code(s): L89.154 - PRESSURE ULCER OF SACRAL REGION, STAGE 4
[2019-07-09] MEDS: POLYETHYLENE GLYCOL 3350 119 GM BTL PO SCH (10:54)
[2019-07-09] MEDS: COLLAGENASE CLOSTRIDIUM HIST. 30 GRAMS TUBE TP SCH (10:54)
[2019-07-09] MEDS ORDERED: PT OWN MED DRAWER 7, Y5N ONE (11:28)
--- NOTE | 2019-07-09 13:12 | DS ---
Physical Exam: SUBJECTIVE: Patient seen and examined OBJECTIVE: Vital Signs Period Temp Pulse Resp BP Sys/Chinchilla Pulse Ox Last 24 Hr 98 F-100.9 F 80-96 18-20 100-134/52-66 100 PHYSICAL EXAM GENERAL: The patient is awake, alert, and fully oriented, in no acute distress. HEAD: Normal with no signs of trauma. EYES: PERRL, extraocular movements intact, sclera anicteric, conjunctiva clear. ENT: Ears normal, nares patent, oropharynx clear without exudates, moist mucous membranes. NECK: Trachea midline, full range of motion, supple. LUNGS: Breath sounds equal, clear to auscultation bilaterally, no wheezes, no crackles, no accessory muscle use. HEART: Regular rate and rhythm, S1, S2 without murmur, rub or gallop. ABDOMEN: Soft, nontender, nondistended, normoactive bowel sounds, no guarding, no rebound, no hepatosplenomegaly, no masses. EXTREMITIES: 2+ pulses, warm, well-perfused, no edema. NEUROLOGICAL: Cranial nerves II through XII grossly intact. Normal speech, gait not observed. PSYCH: Normal mood, normal affect. SKIN: Warm, dry, normal turgor, no rashes or lesions noted. LABS Laboratory Results - last 24 hr 07/08/19 07/08/19 07/09/19 18:12 19:00 05:22 POC Glucometer 110 81 Urine Color Yellow Urine Appearance Clear Urine pH 8.5 H Ur Specific [place] 1.011 Urine Protein Negative Urine Glucose (UA) Negative Urine Ketones Negative Urine Blood Trace Urine Nitrite Negative Urine Bilirubin Negative Urine Urobilinogen 0.2 Ur Leukocyte Esterase Trace Urine WBC (Auto) 2 Urine RBC (Auto) 7 Urine Casts (Auto) 7 U Epithel Cells (Auto) 3.4 Urine Bacteria (Auto) 0.2 HOSPITAL COURSE: ASSESSMENT/PLAN: Ms. Rust is an 89y/o female (hospice patient prior to admission) with dementia , HTN, recurrent UTI, constipation, hypothyroidism, and malnutrition who presents with increased weakness and lethargy. Pt was admitted for severe sepsis 2/2 UTI and bacteremia. #influenza A -no fevers overnight -Tamiflu 75mg BID complete course today -infectious precautions 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, resolved -last set of blood cx negative on 05/24 and 07/03 -Cefazolin 2gm Q8H 6 weeks completed -PICC removed #stage 4 decubitus ulcer, sacral and right trochanteric -wound care -monitor -Reposition every two hours while in bed -Air mattress recommended -Use drawsheets and Trendelenburg when repositioning to reduce friction and shear -Manage incontinence via timely cleansing, use of appropriate incontinence disposables and use of barrier ointment to intact skin -Ensure adequate hydration/nutrition, supplementation per primary team -Ensure off-loading to all bony areas (heels, ankles, hips and tailbone) with Allevyn/Optifoam -Clean open wounds with normal saline and apply wet to dry dressing to right hip. #severe dehydration and malnutrition, improved -dextrose PRN with BGM -dysphagia diet -dietary following #microcytic anemia s/p 2 units PRBCs -Hb improved -3 total this admission #constipation, improved -colace 200mg daily PRN -miralax #dysphagia -pt is able to drink miralax mixed with water #hypophosphatemia, resolved #hyperchloridemia, resolved #hypokalemia, resolved #hypernatremia, resolved #hypomagnesemia, resolved #oral thrush, resolved DVT Ppx heparin FEN PO fluids dysphagia puree diet code status DNR/DNI dispo planned d/c home tomorrow VNS services to do wound care- apply Santyl to sacral and trochanteric ulcers daily Date of Admission:05/18/19 Date of Discharge: 07/09/19 Discharge Summary Problems reviewed: Yes Reason For Visit: URINARY TRACT INFECTION,HYPERNATREMIA Current Active Problems Dysphagia (Acute) Failure to thrive (Acute) Sacral decubitus ulcer, stage IV (Acute) Severe protein-calorie malnutrition (Acute) Condition: Improved - Instructions Diet, Activity, Other Instructions: YOUR VISIT: You were admitted to the hospital for a blood and urine infection. You were given IV antibiotics and nutrition. Your red blood cell count decreased, so you were given a blood transfusion. You improved and are now stable to finish your antibiotics at a group home facility. MEDICATIONS: Continue home medications FOLLOW UP: Dr. Nguyen, primary care, in one week after discharge. You will need labs checked. Dr. Trujillo, nephrology, in one week after discharge. Dr. Devi, wound care, one week after discharge. Dr. Ha, infectious disease, one week after discharge. OTHER INSTRUCTIONS: Return to the emergency room or call 911 if you have change in mental status, increased fatigue, chest pain, abdominal pain, or fever above 101. Apply collagenase to the wounds on your back and hip everyday. If you are unable to, a visiting nurse will help on the days he or she is there. Eat a pureed diet. You can drink Ensure for extra nutrition. Eat slowly and sitting up to avoid choking. Discharge summary Ms. Rust is an 89y/o female with dementia, HTN, recurrent UTI, constipation, hypothyroidism, and malnutrition who presents with increased weakness and lethargy. Pt was admitted for severe sepsis. Urine cx grew klebsiella and blood cx MSSA Referrals: Alvaro Nguyen MD [Primary Care Provider] - Leeanne Ha MD [Staff Physician] - Wilfrido Devi DO [Staff Physician] - Julieta Trujillo MD [Staff Physician] - [facility]position: [facility] - Home Medications Comprehensive Discharge Medication List: Ambulatory Orders Levothyroxine [Synthroid -] 50 mcg PO DAILY 06/21/14 Ranitidine [Zantac -] 150 mg PO BID #30 tablet 07/16/18 Collagenase Clostridium Hist. [Santyl -] 1 applic TP DAILY tube 06/04/19 - Discharge Referral Referred to [facility] Med P.C.: No ATTENDING PHYSICIAN STATEMENT I saw and evaluated the patient. I reviewed the resident's note and discussed the case with the resident. I agree with the resident's findings and plan as documented. SUBJECTIVE: OBJECTIVE: ASSESSMENT AND PLAN:
--- NOTE | 2019-07-09 14:51 | PN ---
Teaching Attending Note Name of Resident: Padmaja Henderson ATTENDING PHYSICIAN STATEMENT I saw and evaluated the patient. I reviewed the resident's note and discussed the case with the resident. I agree with the resident's findings and plan as documented. SUBJECTIVE: no fever or chills OBJECTIVE: MMM. Non verbal.awake, tracts.contracted. CV: RRR. Lungs: CTAB Abd: Soft, NT. ND. NL BS Ext: No edema decubs are not examined today A/P: 1- Severe sepsis: resolved 2- MSSA bacteremia: cleared 3- Endocarditis. 4- Influenza A. 5- Stage 4 Decub ulcer 6- Severe protein calorie malnutrition. 7- Cachexia 8- Hypernatremia: resolved 9- Klebsiella UTI 10- Anemia 11- Constipation Plan: - fever yesterday resolved with no tylenol and did not recur . UA clean. Surgical team d/w resident. wounds do not need to be debrided - finished tamiflu - cont diet - cont bowel regimen . dc home with VNS. finally hospital bed was delivered
[2019-07-10] MEDS: HEPARIN NA (PORCINE) 5,000 UNITS/ML 1ML VIAL SQ SCH ×2 (06:15→14:47)
[2019-07-10] MEDS: COLLAGENASE CLOSTRIDIUM HIST. 30 GRAMS TUBE TP SCH (10:40)
[2019-07-10] MEDS: POLYETHYLENE GLYCOL 3350 119 GM BTL PO SCH (10:40)
--- NOTE | 2019-07-10 13:13 | PN ---
Teaching Attending Note Name of Resident: Padmaja Henderson ATTENDING PHYSICIAN STATEMENT I saw and evaluated the patient. I reviewed the resident's note and discussed the case with the resident. I agree with the resident's findings and plan as documented. SUBJECTIVE: no events over night OBJECTIVE: MMM. Non verbal.awake, tracts.contracted. CV: RRR. Lungs: CTAB Abd: Soft, NT. ND. NL BS Ext: No edema Decubs are not examined today A/P: 1- Severe sepsis: resolved 2- MSSA bacteremia: cleared 3- Endocarditis. 4- Influenza A. 5- Stage 4 Decub ulcer 6- Severe protein calorie malnutrition. 7- Cachexia 8- Hypernatremia: resolved 9- Klebsiella UTI 10- Anemia 11- Constipation Plan: - Cont wound care - finished tamiflu - cont diet - cont bowel regimen . Patient was discharged yesterday but son appealed.
[2019-07-10 17:41] VITALS: BP 128/59; PULSE 84; TEMP 98.9
== END 2019-07-10 17:45 | disposition home health service (06) | DRG 871 ==
LOC: JER 19:39 → JERBED 05-18 02:46 → J5S 05-18 17:07 → J8W 07-07 18:03
PROVIDERS: ADMIT Internal Medicine; ATTEND Internal Medicine
PROC: 30233N1 Transfusion of Nonautologous Red Blood Cells into Peripheral Vein, Percutaneous Approach (ICD-10-PCS; 2019-06-01)
PROC: 02HV33Z Insertion of Infusion Device into Superior Vena Cava, Percutaneous Approach (ICD-10-PCS; principal; 2019-06-04)
PROC: B548ZZA Ultrasonography of Superior Vena Cava, Guidance (ICD-10-PCS; 2019-06-04)
DX: A41.01 Sepsis due to Methicillin susceptible Staphylococcus aureus (principal); L89.154 Pressure ulcer of sacral region, stage 4; E43 Unspecified severe protein-calorie malnutrition; N39.0 Urinary tract infection, site not specified; E87.0 Hyperosmolality and hypernatremia; R64 Cachexia; B37.0 Candidal stomatitis; N17.9 Acute kidney failure, unspecified; I38 Endocarditis, valve unspecified; R65.20 Severe sepsis without septic shock; J11.1 Influenza due to unidentified influenza virus with other respiratory manifestations; F03.90 Unspecified dementia, unspecified severity, without behavioral disturbance, psychotic disturbance, mood disturbance, and anxiety; Z74.01 Bed confinement status; E87.6 Hypokalemia; E87.8 Other disorders of electrolyte and fluid balance, not elsewhere classified; K59.00 Constipation, unspecified; E83.39 Other disorders of phosphorus metabolism; E83.42 Hypomagnesemia; I10 Essential (primary) hypertension; E03.9 Hypothyroidism, unspecified; Z66 Do not resuscitate; E86.0 Dehydration; D69.6 Thrombocytopenia, unspecified; Z68.21 Body mass index [BMI] 21.0-21.9, adult; K21.9 Gastro-esophageal reflux disease without esophagitis; B96.1 Klebsiella pneumoniae [K. pneumoniae] as the cause of diseases classified elsewhere; D50.9 Iron deficiency anemia, unspecified; R13.10 Dysphagia, unspecified
CPT/HCPCS: 36415; 36430; 36511; 36569; 71045-TC-FY; 75820-TC-FY; 77001-TC-FY; 80048; 80053; 81003; 82962; 83605; 83735; 84100; 84132; 84295; 84443; 85025; 85027; 86140; 86850; 86900; 86901; 86922; 87040; 87070; 87086; 87186; 87205; 87804; 93005; 93010; 93306-TC; 97161-GP; 99284-25; C1751; G0480; J0131; J1644; J7030; P9038; P9058